=== PATIENT | female | born 1955 | race Caucasian/White ===

== ENCOUNTER → 2023-06-14 13:19 | Outpatient (BNVA) | payer OTHER, SELFPAY | PROVIDERS: PCP Internal Medicine; Visit Provider Physician Assistant Surgical ==

== ENCOUNTER 2023-08-02 08:23 | Outpatient (AMB) | payer OTHER, SELFPAY ==
--- OUTSIDE RECORDS SUMMARY | 2023-08-02 08:31 | XMS_ITS | Continuity of Care Document ---
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 Role Phone Jose Martinez MD Primary Care Physician Encounter [facility] [place] Date(s): 12/22/21 - 12/29/21 [facility] [address] [place] [id number] Attending Physician: Tamera HICKEY, Deanna Robin Admitting Physician: Tamera HICKEY, Deanna Robin Referring Physician: Jose Martinez MD Allergies, Adverse Reactions, Alerts Substance Reaction Severity Status Nembutal Hyperventalating Active traZODone daytime gogginess Active Cordran Tape BLISTERS Active Chantix Active Immunizations Given and Recorded Vaccine Date Status Refusal Reason SARS-CoV-2 (COVID-19) mRNA-1273 vaccine 03/31/21 R ecorded SARS-CoV-2 (COVID-19) mRNA-1273 vaccine 06/26/20 R ecorded SARS-CoV-2 (COVID-19) mRNA-1273 vaccine 05/28/20 R ecorded influenza virus vaccine, inactivated 1 12/27/20 Gi lincoln influenza virus vaccine, inactivated 01/13/19 Give n influenza virus vaccine, inactivated 2 01/19/18 Gi lincoln influenza virus vaccine, inactivated 01/22/17 Give n influenza virus vaccine, inactivated 03/06/16 Give n influenza virus vaccine, inactivated 12/28/12 Give n influenza virus vaccine, inactivated 3 01/03/08 Gi lincoln influenza virus vaccine, inactivated 4 02/09/06 Gi lincoln Influenza Virus Vaccine (oldterm) 01/15/20 Recorde d tetanus/diphtheria/pertussis, acel(Tdap) 10/20/19 Given FluLaval (oldterm) 5 12/18/12 Given Pneumococcal Poly (PPV23) (oldterm) 06/02/11 Given Tet/Diphth/Acel, Pertussis (oldterm) 6 02/25/09 Gi lincoln influ virus vac, H1N1, inactive(oldterm) 7 01/21/09 Given 1Result Comment: [facility]:[id number] 2Result Comment: [01/19/2018] [id number] 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 5Admin Note: [facility] 6Admin Note: Boost[employer]/Rixensart,[place] 7Admin Note: Novaritis Medications Albuterol (Eqv-ProAir HFA) 2 puffs, Inhalation, Every 6 hours, 0 Refills, Maintenance, 10/13/21 13:54:00 EDT, Partial fill upon patient request if the prescription is for a schedule II opioid drug. Start Date: 10/13/21 Status: Ordered ARIPiprazole 5 mg oral tablet 1, tablet, By Mouth, Daily, for 90 days, TO BE COMBINED WITH THE CITALOPRAM THERAPY, # 90 tablet, Refills 3, Tot. Refills 3, Physician Stop 08/01/22 9:00:00 EDT, 08/06/21 9:00:00 EDT, Route to Pharmacy Electronically, [facility]/pharmacy #[id number], 157.48, cm, 0... Start Date: 08/06/21 Stop Date: 08/01/22 Status: Ordered aspirin 81 mg oral delayed release tablet 81 mg, By Mouth, Daily, # 30 tablet, Refills 11, Tot. Refills 11, Maintenance, 06/12/21 9:27:00 EDT, Route to Pharmacy Electronically, [facility], Partial fill upon patient request if the prescription is for a schedule II opioid drug., 1... Start Date: 06/12/21 Stop Date: 06/07/22 Status: Ordered Ativan 0.5 mg oral tablet 1 tablet = 0.5 mg, By Mouth, Daily at bedtime, PRN as needed for anxiety, # 30 tablet, 1 Refills, Maintenance, 11/25/21 15:15:00 EDT, Tablet, [facility]/pharmacy #[id number], Partial fill upon patient request if the prescription is for a schedule II opioid drug.,... 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, 07/15/21 13:42:00 EDT, Supply Start Date: 07/15/21 Status: Ordered Daily Erica oral tablet See Instructions, TAKE 1 TABLET BY MOUTH EVERY DAY, # 90 tablet, 1 Refills, [id number], 90, TAKE 1 TABLET BY MOUTH EVERY DAY, 157.48, cm, 08/12/21 10:44:00 EDT, Height, 111, kg, 06/10/21 15:06:00 EDT, Dry Weight Start Date: 10/31/21 Status: Ordered Dulera 100 mcg-5 mcg/inh inhalation aerosol 2 puffs, Inhalation, 2 times a day, # 1 each, 11 Refills, 06/02/21 14:01:00 EDT, [facility]/pharmacy #[id number], 2 puffs Inhalation 2 times a day, 160, cm, 06/02/21 13:26:00 EDT, Height, 103, kg, 04/10/20 11:20:00 EST, Dry Weight Start Date: 06/02/21 Status: Ordered Entresto 24 mg-26 mg oral tablet 1 tablet, By Mouth, 2 times a day, # 60 tablet, 11 Refills, [id number], 30, TAKE 1 TABLET BY MOUTH TWICE A DAY, 157.48, cm, 08/12/21 10:44:00 EDT, Height, 111, kg, 06/10/21 15:06:00 EDT, Dry Weight Start Date: 09/18/21 Status: Ordered ferrous sulfate 325 mg oral enteric coated tablet 1, tablet, By Mouth, 2 times a day, for 90 days, # 180 tablet, Refills 3, Tot. Refills 3, PhysicianStop 08/01/22 9:01:00 EDT, 08/06/21 9:01:00 EDT, Route to Pharmacy Electronically, [facility]/pharmacy #[id number], 157.48, cm, 08/05/21 14:31:00 EDT, Height, 111,... Start Date: 08/06/21 Stop Date: 08/01/22 Status: Ordered furosemide 20 mg oral tablet 1, tablet, By Mouth, Daily, # 30 tablet, Refills 1, Maintenance, 12/02/21 12:39:00 EDT, Route to Pharmacy Electronically, [id number], 157.48, cm, 11/04/21 11:33:00 EDT, Height, 111, kg, 06/10/2214:06:00 EDT, Dry Weight Start Date: 12/02/21 Status: Ordered Lipitor 80 mg oral tablet 1 tablet = 80 mg, By Mouth, Daily at bedtime, # 30 tablet, 11 Refills, Maintenance, 06/12/21 9:27:00 EDT, Tablet, [facility], Partial fill upon patient request if the prescription is for a schedule II opioid drug., 157.48, cm, 06/10/21 1... Start Date: 06/12/21 Status: Ordered metoprolol 100 mg oral tablet, extended release 100 mg, 1, tablet, By Mouth, Daily, # 90 tablet, Refills 3, Tot. Refills 3, Maintenance, 09/11/21 12:08:00 EDT, Route to Pharmacy Electronically, [facility]/pharmacy #[id number], 157.48, cm, 08/12/21 10:44:00 EDT, Height, 111, kg, 06/10/21 15:06:00 EDT, Dry Weight Start Date: 09/11/21 Stop Date: 09/06/22 Status: Ordered morphine 15 mg/8 to 12 hr oral tablet, extended release 1 tablet = 15 mg, By Mouth, Every 8 hours, PRN Pain , Moderate, On substance agreement evaluated every 3 to 6 months, # 84 tablet, 0 Refills, Maintenance, 08/19/21 14:03:00 EDT, [facility]/pharmacy #[id number], parital fill upon patient request, 157.48, cm, 07/21... Start Date: 08/19/21 Stop Date: 09/16/21 Status: Ordered morphine 15 mg/8 to 12 hr oral tablet, extended release 1 tablet = 15 mg, By Mouth, Every 8 hours, PRN Pain , Moderate, On substance agreement evaluated every 3 to 6 months, # 84 tablet, 0 Refills, Maintenance, 11/25/21 15:15:00 EDT, [facility]/pharmacy #[id number], parital fill upon patient request, 157.48, cm, 10/20... Start Date: 11/25/21 Stop Date: 12/23/21 Status: Ordered morphine 15 mg/8 to 12 hr oral tablet, extended release 1 tablet = 15 mg, By Mouth, Every 12 hours, PRN Pain , Moderate, 0 Refills, Maintenance, 06/12/21 9:22:00 EDT, ER Tablet, Partial fill upon patient request if the prescription is for a schedule II opioid drug. Start Date: 06/12/21 Status: Ordered rOPINIRole 0.25 mg oral tablet See Instructions, TAJE 1 TABLET BY MOUTH AT BEDTIME FOR 1 WEEK THEN INCRAESE TO 2 AT NIGHT FOR 1 WEEK THEN 3 EVERY NIG, # 90 tablet, 1 Refills, Maintenance, 11/25/21 12:04:00 EDT, [facility]ORE 08325, 157.48, cm, 11/04/21 11:33:00 EDT, Height, 111, kg, 03... Start Date: 11/25/21 Status: Ordered warfarin 5 mg oral tablet 0.5 tablet = 2.5 mg, By Mouth, Daily, Goal INR 2-3 Please follow up with your coumadin clinic, # [id number], 0 Refills, Maintenance, 06/12/21 9:27:00 EDT, Tablet, [facility], Partial fill upon patient request if the prescription is for a... Start Date: 06/12/21 Status: Ordered Problem List Condition Confirmation Course Effective Dates Status H ealth Status Informant Asthma Confirmed Active Atrial fibrillation Confirmed Active Back pain 1 Confirmed Active Major depression, chronic Confirmed Active CHF (congestive heart failure) ([id number]% on echo 2019) Confirmed Active Continuous opioid dependence Confirmed Active Coronary artery disease Confirmed Active Opiate analgesic contract exists Confirmed Active Generalized anxiety disorder Confirmed Active Hip pain 2 Confirmed Active Hip replacement 3 Confirmed Active Hyperlipidemia Confirmed Active Hypertension Confirmed Active Patient has healthcare proxy - 10/02/11 Confirmed Active OA - Osteoarthritis 4 Confirmed 03/29/08 Active Obesity (BMI 30-39.9) Confirmed Active PRINCESS - Obstructive sleep apnea Confirmed 01/21/09 Active Severe obesity Confirmed Active Tobacco dependence Confirmed Active 1lumbar disc disease MRI 2005 2Right 3Right 11/2008 4advanced right hip OA Social History Social History Type Response Smoking Status 5-9 cigarettes (betw een 1/4 to 1/2 pack)/day in last 30 days; Other: Started at 23 years old; entered on: 01/18/20 Sex Patient Care team information Personnel Name: Jose Martinez MD Address: Address: [address] [place], [place] [address]
--- OUTSIDE RECORDS SUMMARY | 2023-08-02 08:31 | XMS_ITS | Continuity of Care Document ---
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 Role Phone Jose Martinez MD Primary Care Physician Encounter [facility] Date(s): 05/07/20 - 06/06/20 [facility] [address] [place] [address]- Allergies, Adverse Reactions, Alerts Substance Reaction Severity Status Nembutal Hyperventalating Active Cordran Tape BLISTERS Active Chantix Active traZODone daytime gogginess Active Immunizations Given and Recorded Vaccine Date Status Refusal Reason Influenza Virus Vaccine (oldterm) 01/15/20 Recorde d tetanus/diphtheria/pertussis, acel(Tdap) 10/20/19 Given influenza virus vaccine, inactivated 01/13/19 Give n influenza virus vaccine, inactivated 1 01/19/18 Gi lincoln influenza virus vaccine, inactivated 01/22/17 Give n influenza virus vaccine, inactivated 03/06/16 Give n influenza virus vaccine, inactivated 12/28/12 Give n influenza virus vaccine, inactivated 2 01/03/08 Gi lincoln influenza virus vaccine, inactivated 3 02/09/06 Gi lincoln FluLaval (oldterm) 4 03/08/12 Given Pneumococcal Poly (PPV23) (oldterm) 06/02/11 Given Tet/Diphth/Acel, Pertussis (oldterm) 5 02/25/09 Gi lincoln influ virus vac, H1N1, inactive(oldterm) 6 01/21/09 Given 1Result Comment: [01/19/2018] [id number] 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 4Admin Note: [employer] 5Admin Note: Boost[employer]/Rixensart,[place] 6Admin Note: Novaritis Medications Abilify 5 mg oral tablet 5 mg, 1, tablet, By Mouth, Daily, to be combined with the citalopram therapy, # 30 tablet, Refills 11, Tot. Refills 11, Maintenance, 07/31/19 14:19:00 EDT, [id number], cm, 07/31/19 13:53:00 EDT, Height, 1... Start Date: 07/31/19 Status: Ordered Ativan 0.5 mg oral tablet 1 tablet = 0.5 mg, By Mouth, 3 times a day, PRN anxiety, # 90 tablet, 2 Refills, Maintenance, 05/20/20 14:21:00 EST, [facility] 162.[facility], cm, 05/15/20 10:27:00 EST, Height, 103, kg, 04/10/20 11:20:00 EST, Dry Weight Start Date: 05/20/20 Status: Ordered atorvastatin 40 mg oral tablet 1 tablet = 40 mg, By Mouth, Daily, # 90 tablet, 1 Refills, Maintenance, 11/16/19 10:37:00 EDT, [facility], cm, 10/23/19 15:34:00 EDT, Height, Dry Weight Start Date: 11/16/19 Status: Ordered citalopram 40 mg oral tablet 1 tablet, By Mouth, Daily, # 90 tablet, 1 Refills, Maintenance, 04/04/20 11:03:00 EST, [facility], cm, 04/03/20 11:38:00 EST, Height, 108, kg, 04/03/20 11:10:00 EST, Dry Weight Start Date: 04/04/20 Status: Ordered CPAP Machine See Instructions, # 1 each, Maintenance, auto-CPAP10 to 16 cm of H2O with a heated humidifier. dx PRINCESS, 10/17/18 11:44:03 EDT, Compound Start Date: 10/17/18 Status: Ordered CPAP Equipment See Instructions, # 1 each, Refills 11, Tot. Refills 11, Maintenance, Cpap supplies- mask, tubing, filters, headgear, water chamber dx PRINCESS, 10/17/18 11:44:10 EDT, Compound Start Date: 10/17/18 Status: Ordered Dilaudid 2 mg oral tablet 1 tablet = 2 mg, By Mouth, Daily, PRN Pain , Mild, On substance agreement evaluated every 3 to 6 months, # 28 tablet, 0 Refills, Maintenance, 04/30/20 17:05:00 EST, Tablet, [facility]/pharmacy #[id number], parital fill upon patient request, 162.5, cm, 04/10/20 1... Start Date: 04/30/20 Status: Ordered Dulera 100 mcg-5 mcg/inh inhalation aerosol 2 puffs, Inhalation, 2 times a day, # 1 each, 11 Refills, Maintenance, 07/31/19 14:15:00 EDT, Aerosol, [facility]/pharmacy #2339, 2 puffs Inhalation 2 times a day, 157, cm, 07/31/19 13:53:00 EDT, Height, 104, kg, 08/03/17 12:54:00 EDT, Dry Weight Start Date: 07/31/19 Status: Ordered ferrous sulfate 325 mg oral enteric coated tablet 325 mg, By Mouth, 2 times a day, # 60 tablet, Refills 5, Tot. Refills 5, Maintenance, 04/17/20 10:12:00 EST, Route to Pharmacy Electronically, [facility]/pharmacy #2339, 162.5, cm, 04/10/20 11:20:00 EST, Height, 103, kg, 04/10/20 11:20:00 EST, Dry Weight Start Date: 04/17/20 Status: Ordered Lasix 40 mg oral tablet 40 mg, 1, tablet, By Mouth, Daily, # 30 tablet, Refills 5, Tot. Refills 5, Maintenance, 03/11/20 13:11:00 EST, Route to Pharmacy Electronically, [facility]/pharmacy #2339, 160, cm, 02/28/20 10:28:00 EST, Height, 104, kg, 01/19/20 3:57:00 EDT, Dry Weight Start Date: 03/11/20 Status: Ordered lisinopril 10 mg oral tablet 10 mg, 1, tablet, By Mouth, Daily, # 90 tablet, Refills 1, Tot. Refills 1, Maintenance, 05/20/20 8:39:00 EST, Route to Pharmacy Electronically, [facility]/pharmacy #2339, 162.5, cm, 05/15/20 10:27:00 EST, Height, 103, kg, 04/10/20 11:20:00 EST, Dry Weight Start Date: 05/20/20 Stop Date: 11/16/20 Status: Ordered morphine 15 mg/8 to 12 hr oral tablet, extended release 1 tablet = 15 mg, By Mouth, Every 8 hours, PRN Pain , Moderate, On substance agreement evaluated every 3 to 6 months, # 90 tablet, 0 Refills, Maintenance, 04/30/20 17:05:00 EST, [facility]/pharmacy #[id number], parital fill upon patient request, 162.5, cm, 04/10... Start Date: 04/30/20 Stop Date: 05/30/20 Status: Ordered morphine 30 mg/8 to 12 hr oral tablet, extended release 1 tablet = 30 mg, By Mouth, 3 times a day, OPIATE AGREEMENT evaluated every 3 to 6 months, # 84 tablet, 0 Refills, Maintenance, 04/30/20 17:05:00 EST, [facility]/pharmacy #2339, may fill for less, 162.5, cm, 04/10/20 11:20:00 EST, Height, 103, kg, 04/10/20... Start Date: 04/30/20 Stop Date: 05/28/20 Status: Ordered Multivitamin Daily, 0 Refills, Maintenance, 05/25/16 13:36:30 Start Date: 05/25/16 Status: Ordered Nicoderm C-Q 21 mg/24 hr transdermal film, extended release 1 patch, Topically, Daily, # 30 patch, 3 Refills, Maintenance, 08/25/19 16:23:00 EDT, Patch, [facility]/pharmacy #2339, 157, cm, 08/25/19 15:55:00 EDT, Height Start Date: 08/25/19 Status: Ordered [facility] use with inhaler [facility] use with inhaler, See Instructions, # 1 each, Refills 0, Tot. Refills 0, Maintenance, DX: Asthma, 09/09/18 16:10:45 EDT, Compound Start Date: 09/09/18 Status: Ordered spacer for use with MDI spacer for use with MDI, See Instructions, # 1 each, Refills 0, Tot. Refills 0, Maintenance, use with ProAir prn; dx bronchospasm, 08/25/19 16:12:00 EDT, Supply, 157, cm, 08/25/19 15:55:00 EDT, Height Start Date: 08/25/19 Status: Ordered Toprol XL 25 mg oral tablet, extended release 25 mg, 1, tablet, By Mouth, Daily, # 30 tablet, Refills 5, Tot. Refills 5, Maintenance, 01/22/20 9:08:00 EST, Route to Pharmacy Electronically, [facility]/pharmacy #2339, 160, cm, 01/22/20 7:53:00 EST, Height, 104, kg, 01/19/20 3:57:00 EDT, Dry Weight Start Date: 01/22/20 Stop Date: 07/20/20 Status: Ordered Ventolin HFA 108 mcg/inh inhalation aerosol with adapter 2 puffs, Inhalation, 4 times a day, PRN for wheezing, # 8 Gm, 5 Refills, Maintenance, 12/20/19 11:27:00 EDT, Aerosol, [facility]/pharmacy #2339, 156.6, cm, 10/23/19 15:34:00 EDT, Height Start Date: 12/20/19 Status: Ordered warfarin 5 mg oral tablet 0.5 tablet = 2.5 mg, By Mouth, Daily at bedtime, 5mg tablet on Fridays, # 30 tablet, 5 Refills, Maintenance, 02/26/20 12:12:00 EST, Tablet, [facility]/pharmacy #2339, 160, cm, 01/26/20 9:40:00 EST, Height, 104, kg, 01/19/20 3:57:00 EDT, Dry Weight Start Date: 02/26/20 Status: Ordered Problem List Condition Effective Dates Status Health Status Inform ant Asthma(Confirmed) Active Atrial fibrillation(Confirmed) Active Back pain(Confirmed) 1 Active Major depression, chronic(Confirmed) Active Continuous opioid dependence(Confirmed) Active Opiate analgesic contract exists(Confirmed) Active Hip pain(Confirmed) 2 Active Hip replacement(Confirmed) 3 Active Hypertension(Confirmed) Active Patient has healthcare proxy - 10/02/11(Confirmed) Active OA - Osteoarthritis(Confirmed) 4 03/29/08 Active Obesity (BMI 30-39.9)(Confirmed) Active PRINCESS - Obstructive sleep apnea(Confirmed) 01/21/09 Active 1lumbar disc disease MRI 2005 2Right 3Right 11/2008 4advanced right hip OA Social History Social History Type Response Smoking Status 5-9 cigarettes (betw een 1/4 to 1/2 pack)/day in last 30 days; Other: Started at 23 years old; entered on: 01/18/20 Sex
--- OUTSIDE RECORDS SUMMARY | 2023-08-02 08:31 | XMS_ITS | Continuity of Care Document ---
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 4Admin Note: [employer] 5Admin Note: Boost[employer]/Rixensart,[place] 6Admin Note: Novaritis Medications Abilify 5 mg oral tablet 5 mg, 1, tablet, By Mouth, Daily, to be combined with the citalopram therapy, # 30 tablet, Refills 11, Tot. Refills 11, Maintenance, 07/31/19 14:19:00 EDT, [id number], [facility], 07/31/19 13:53:00 EDT, Height, 1... Start Date: 07/31/19 Status: Ordered Ativan 0.5 mg oral tablet 1 tablet = 0.5 mg, By Mouth, 3 times a day, PRN anxiety, # 90 tablet, 2 Refills, Maintenance, 02/26/20 20:28:00 EST, [facility], cm, 01/26/20 9:40:00 EST, Height, 104, kg, 01/19/20 3:57:00 EDT, Dry Weight Start Date: 02/26/20 Status: Ordered atorvastatin 40 mg oral tablet 1 tablet = 40 mg, By Mouth, Daily, # 90 tablet, 1 Refills, Maintenance, 11/16/19 10:37:00 EDT, [facility], cm, 10/23/19 15:34:00 EDT, Height, Dry Weight Start Date: 11/16/19 Status: Ordered citalopram 40 mg oral tablet 1 tablet, By Mouth, Daily, # 90 tablet, 1 Refills, Maintenance, 10/03/19 13:25:00 EDT, [id number], 157, cm, 08/25/19 15:55:00 EDT, Height Start Date: 10/03/19 Status: Ordered CPAP Machine See Instructions, # [...] months, # 28 tablet, 0 Refills, Maintenance, 02/07/20 16:16:00 EST, Tablet, [facility]/pharmacy #2339, parital fill upon patient request, 160, cm, 01/26/20 9:4... Start Date: 02/07/20 Status: Ordered Dulera 100 mcg-5 mcg/inh inhalation aerosol 2 puffs, Inhalation, 2 times a day, # 1 each, 11 Refills, Maintenance, 07/31/19 14:15:00 EDT, Aerosol, [facility]/pharmacy #2339, 2 puffs Inhalation 2 times a day, 157, cm, 07/31/19 13:53:00 EDT, Height, 104, kg, 08/03/17 12:54:00 EDT, Dry Weight Start Date: 07/31/19 Status: Ordered ferrous sulfate 325 mg oral enteric coated tablet 325 mg, By Mouth, 2 times a day, # 60 tablet, Refills 1, Tot. Refills 1, Maintenance, 02/16/20 10:07:00 EST, Route to Pharmacy Electronically, [facility]/pharmacy #2339, 160, cm, 01/26/20 9:40:00 EST, Height, 104, kg, 01/19/20 3:57:00 EDT, Dry Weight Start Date: 02/16/20 Status: Ordered Lasix 40 mg oral tablet 40 mg, 1, tablet, By Mouth, Daily, # 30 tablet, Refills 0, Tot. Refills 0, Maintenance, 02/16/20 10:07:00 EST, Route to Pharmacy Electronically, [facility]/pharmacy #2339, 160, cm, 01/26/20 9:40:00 EST, Height, 104, kg, 01/19/20 3:57:00 EDT, Dry Weight Start Date: 02/16/20 Status: Ordered lisinopril 10 mg oral tablet 10 mg, 1, tablet, By Mouth, Daily, # 90 tablet, Refills 0, Tot. Refills 0, Maintenance, 02/26/20 14:41:00 EST, Route to Pharmacy Electronically, [facility]/pharmacy #2339, Partial fill upon patient request if the prescription is for a schedule II opioid drug... Start Date: 02/26/20 Status: Ordered morphine 15 mg/8 to 12 hr oral tablet, extended release 1 tablet = 15 mg, By Mouth, Every 8 hours, PRN Pain , Moderate, On substance agreement evaluated every 3 to 6 months, # 90 tablet, 0 Refills, Maintenance, 02/26/20 20:28:00 EST, [facility]/pharmacy #[id number], parital fill upon patient request, 160, cm, ... Start Date: 02/26/20 Stop Date: 03/27/20 Status: Ordered morphine 30 mg/8 to 12 hr oral tablet, extended release 1 tablet = 30 mg, By Mouth, 3 times a day, OPIATE AGREEMENT evaluated every 3 to 6 months, # 84 tablet, 0 Refills, Maintenance, 02/07/20 16:16:00 EST, [facility]/pharmacy #2339, may fill for less, 160, cm, 01/26/20 9:40:00 EST, Height, 104, kg, 01/19/20 3:5... Start Date: 02/07/20 Stop Date: 03/06/20 Status: Ordered Multivitamin Daily, 0 Refills, Maintenance, 05/25/16 13:36:30 Start Date: 05/25/16 Status: Ordered Nicoderm C-Q 21 mg/24 hr transdermal film, extended release 1 patch, Topically, Daily, # 30 patch, 3 Refills, Maintenance, 08/25/19 16:23:00 EDT, Patch, [facility]/pharmacy #2339, 157, cm, 08/25/19 15:55:00 EDT, Height Start Date: 08/25/19 Status: Ordered [facility] use with inhaler [facility] use with inhaler, See Instructions, # [...] 01/22/20 9:08:00 EST, Route to Pharmacy Electronically, [facility]/pharmacy #2339, 160, cm, 01/22/20 7:53:00 EST, Height, 104, kg, 01/19/20 3:57:00 EDT, Dry Weight Start Date: 01/22/20 Stop Date: 07/20/20 Status: Ordered Ventolin HFA 108 mcg/inh inhalation aerosol with adapter 2 puffs, Inhalation, 4 times a day, PRN for wheezing, # 8 Gm, 5 Refills, Maintenance, 12/20/19 11:27:00 EDT, Aerosol, [facility]/pharmacy #2339, 156.6, cm, 10/23/19 15:34:00 EDT, Height Start Date: 12/20/19 Status: Ordered warfarin 5 mg oral tablet 1 tablet = 5 mg, By Mouth, Daily, # 30 tablet, 5 Refills, Maintenance, 02/26/20 12:12:00 EST, Tablet, [facility]/pharmacy #2339, 160, cm, 01/26/20 9:40:00 EST, Height, [...]
--- OUTSIDE RECORDS SUMMARY | 2023-08-02 08:31 | XMS_ITS | Continuity of Care Document ---
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 Role Phone Jose Martinez MD Primary Care Physician [place] [facility] [place] 04/02/21 [facility] [address] [place] [id number] Attending Physician: Idris, Annetta Admitting Physician: AdmtrAnnetta Referring Physician: Admtr, Ar8 Allergies, Adverse Reactions, Alerts Substance Reaction Severity Status Nembutal Hyperventalating Active traZODone daytime gogginess Active Chantix Active Cordran Tape BLISTERS Active Immunizations Given and Recorded Vaccine Date [...] tetanus/diphtheria/pertussis, acel(Tdap) 10/20/19 Given FluLaval (oldterm) 5 03/08/12 Given Pneumococcal Poly (PPV23) (oldterm) 06/02/11 Given Tet/Diphth/Acel, Pertussis (oldterm) 6 02/25/09 Gi [place] influ virus vac, H1N1, inactive(oldterm) 7 01/21/09 Given 1Result Comment: [facility]:[id number] 2Result Comment: [01/19/2018] [id number] 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 5Admin Note: [facility] 6Admin Note: [employer],[place] 7Admin Note: Novaritis Medications ARIPiprazole 5 mg oral tablet 1, tablet, By Mouth, Daily, TO BE COMBINED WITH THE CITALOPRAM THERAPY, # 90 tablet, Refills 1, Route to Pharmacy Electronically, [facility] STORE 112[facility], 162.5, cm, 12/27/20 14:39:00 EDT, Height, 103, kg, 04/10/20 11:20:00 EST, Dry Weight Start Date: 01/16/21 Status: Ordered Ativan 0.5 mg oral tablet 1 tablet = 0.5 mg, By Mouth, 3 times a day, PRN anxiety, # 90 tablet, 2 Refills, Maintenance, 02/24/21 14:29:00 EST, Tablet, [facility]/pharmacy #[id number], 162.5, cm, 01/29/21 12:38:00 EST, Height, 103, kg, 04/10/20 11:20:00 EST, Dry Weight Start Date: 02/24/21 Status: Ordered atorvastatin 40 mg oral tablet 1 tablet = 40 mg, By Mouth, Daily, # 90 tablet, 1 Refills, Maintenance, 11/16/19 10:37:00 EDT, Tablet, [facility]/pharmacy #[id number], 156.6, cm, 10/23/19 15:34:00 EDT, Height, Dry Weight Start Date: 11/16/19 Status: Ordered citalopram 40 mg oral tablet 1 tablet, By Mouth, Daily, # 90 tablet, 1 Refills, Maintenance, 10/28/20 14:21:00 EDT, [facility]/pharmacy#2339, 162.5, cm, 05/15/20 10:27:00 EST, Height, 103, kg, 04/10/20 11:20:00 EST, Dry Weight Start Date: 10/28/20 Status: Ordered CPAP Machine See Instructions, # [...] months, # 28 tablet, 0 Refills, Maintenance, 04/02/21 12:29:00 EST, Tablet, [facility]/pharmacy #[id number], parital fill upon patient request, 162.5, cm, 01/29/21 1... Start Date: 04/02/21 Status: Ordered Dulera 100 mcg-5 mcg/inh inhalation aerosol 2 puffs, Inhalation, 2 times a day, # 13 Unknown, 11 Refills, Maintenance, 07/22/20 7:52:00 EDT, [id number], 30, INHALE 2 PUFFS TWICE A DAY, 162.5, cm, 05/15/20 10:27:00 EST, Height, 103, kg, 04/10/20 11:20:00 EST, Dry Weight Start Date: 07/22/20 Status: Ordered ferrous sulfate 325 mg oral enteric coated tablet 1, tablet, By Mouth, 2 times a day, # 180 tablet, Refills 1, Tot. Refills 0, Maintenance, 10/17/20 7:27:00 EDT, Route to Pharmacy Electronically, [facility] 92018, 162.5, cm, 05/15/20 10:27:00 EST, Height, 103, kg, 04/10/20 11:20:00 EST, Dry Weight Start Date: 10/17/20 Status: Ordered lisinopril 10 mg oral tablet 1, tablet, By Mouth, Daily, # 90 tablet, Refills 3, Route to Pharmacy Electronically, [facility] 56[facility], 162.5, cm, 05/15/20 10:27:00 EST, Height, 103, kg, 04/10/20 11:20:00 EST, Dry Weight Start Date: 11/13/20 Status: Ordered Metoprolol Succinate ER 25 mg oral tablet, extended release 1 tablet, By Mouth, Daily, # 90 tablet, 1 Refills, Maintenance, 04/02/21 9:43:00 EST, [facility]/pharmacy #[id number], 162.5, cm, 01/29/21 12:38:00 EST, Height, 103, kg, 04/10/20 11:20:00 EST, Dry Weight Start Date: 04/02/21 Status: Ordered morphine 15 mg/8 to 12 hr oral tablet, extended release 1 tablet = 15 mg, By Mouth, Every 8 hours, PRN Pain , Moderate, On substance agreement evaluated every 3 to 6 months, # 90 tablet, 0 Refills, Maintenance, 04/02/21 12:29:00 EST, [facility]/pharmacy #[id number], parital fill upon patient request, 162.5, cm, 01/29... Start Date: 04/02/21 Stop Date: 05/02/21 Status: Ordered morphine 30 mg/8 to 12 hr oral tablet, extended release 1 tablet = 30 mg, By Mouth, 3 times a day, OPIATE AGREEMENT evaluated every 3 to 6 months, # 84 tablet, 0 Refills, Maintenance, 04/02/21 12:29:00 EST, [facility]/pharmacy #[id number], may fill for less, 162.5, cm, 01/29/21 12:38:00 EST, Height, 103, kg, 04/10/20... Start Date: 04/02/21 Stop Date: 04/30/21 Status: Ordered Multivitamin Daily, 0 Refills, Maintenance, 05/25/16 13:36:30 Start Date: 05/25/16 Status: Ordered Nicoderm C-Q 21 mg/24 hr transdermal film, extended release 1 patch, Topically, Daily, # 30 patch, 3 Refills, Maintenance, 08/25/19 16:23:00 EDT, Patch, [facility]/pharmacy #[id number], 157, cm, 08/25/19 15:55:00 EDT, Height Start Date: 08/25/19 Status: Ordered [facility] use with inhaler [facility] use with inhaler, See Instructions, # 1 [...] EDT, Height Start Date: 08/25/19 Status: Ordered torsemide 5 mg oral tablet 2 tablet = 10 mg, By Mouth, Daily, # 90 tablet, 1 Refills, Maintenance, 04/02/21 21:23:00 EST, [facility]/pharmacy #2339, 162.5, cm, 01/29/21 12:38:00 EST, Height, 103, kg, 04/10/20 11:20:00 EST, Dry Weight Start Date: 04/02/21 Status: Ordered Ventolin HFA 108 mcg/inh inhalation aerosol with adapter 2 puffs, Inhalation, 4 times a day, PRN NEEDED FOR WHEEZING, # 3 each, 1 Refills, Maintenance, 12/02/20 8:23:00 EDT, [facility]/pharmacy #[id number], 162.5, cm, 05/15/20 10:27:00 EST, Height, 103, kg, 04/10/2110:20:00 EST, Dry Weight Start Date: 12/02/20 Stop Date: 05/31/21 Status: Ordered warfarin 5 mg oral tablet 1 tablet, By Mouth, Daily, # 90 tablet, 1 Refills, [facility] STORE 91757, 162.5, cm, 01/29/21 12:38:00 EST, Height, 103, kg, 04/10/20 11:20:00 EST, Dry Weight Start Date: 03/03/21 Status: Ordered Problem List Condition Effective Dates Status Health Status Inform ant Asthma(Confirmed) Active Atrial fibrillation(Confirmed) Active Back pain(Confirmed) 1 Active Major depression, chronic(Confirmed) Active CHF (congestive heart failur e) ([id number]% on echo 2019)(Confirmed) Active Continuous opioid dependence(Confirmed) Active Opiate analgesic contract exists(Confirmed) Active Hip pain(Confirmed) 2 Active Hip replacement(Confirmed) 3 Active Hypertension(Confirmed) Active Patient has healthcare proxy - 10/02/11(Confirmed) Active OA - Osteoarthritis(Confirmed) 4 03/29/08 Active Obesity (BMI 30-39.9)(Confirmed) Active PRINCESS - Obstructive sleep apnea(Confirmed) 01/21/09 Active Severe obesity(Confirmed) Active 1lumbar disc disease MRI 2005 2Right 3Right 11/2008 4advanced right hip OA Social History Social History Type Response Smoking Status 5-9 cigarettes (betw een 1/4 to 1/2 pack)/day in last 30 days; Other: Started at 23 years old; entered on: 01/18/20 Sex
--- OUTSIDE RECORDS SUMMARY | 2023-08-02 08:31 | XMS_ITS | Continuity of Care Document ---
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 4Admin Note: [employer] 5Admin Note: [employer],[place] 6Admin Note: Novaritis Medications Abilify 5 mg oral tablet 5 mg, 1, tablet, By Mouth, Daily, to be combined with the citalopram therapy, # 90 tablet, Refills 0, Tot. Refills 0, Maintenance, 07/20/20 19:50:00 EDT, [id number] 162.5, cm, 05/15/20 10:27:00 EST, Height, 1... Start Date: 07/20/20 Status: Ordered Ativan 0.5 mg oral tablet 1 tablet = 0.5 mg, By Mouth, 3 times a day, PRN anxiety, # 90 tablet, 2 Refills, Maintenance, 10/14/20 13:39:00 EDT, Tablet[facility] 162.5, cm, 05/15/20 10:27:00 EST, Height, 103, kg, 04/10/20 11:20:00 EST, Dry Weight Start Date: 10/14/20 Status: Ordered atorvastatin 40 mg oral tablet 1 tablet = 40 mg, By Mouth, Daily, # 90 tablet, 1 Refills, Maintenance, 11/16/19 10:37:00 EDT, Tablet, [facility]/pharmacy #2339, 156.6, cm, 10/23/19 15:34:00 EDT, Height, Dry Weight Start Date: 11/16/19 Status: Ordered citalopram 40 mg oral tablet 1 tablet, By Mouth, Daily, # 90 tablet, 1 Refills, Maintenance, 10/28/20 14:21:00 EDT, [facility] 162.5, cm, 05/15/20 10:27:00 EST, Height, 103, [...] months, # 28 tablet, 0 Refills, Maintenance, 10/29/20 12:51:00 EDT, Tablet, [facility]/pharmacy #[id number], parital fill upon patient request, 162.5, cm, 05/15/20 1... Start Date: 10/29/20 Status: Ordered Dulera 100 mcg-5 mcg/inh inhalation aerosol 2 puffs, Inhalation, 2 times a day, # 13 Unknown, 11 Refills, Maintenance, 07/22/20 7:52:00 EDT, [facility] ST[facility] 97[facility], 30, INHALE 2 PUFFS TWICE A DAY, 162.5, cm, 05/15/20 10:27:00 EST, Height, 103, kg, 04/10/20 11:20:00 EST, Dry Weight Start Date: 07/22/20 Status: Ordered ferrous sulfate 325 mg oral enteric coated tablet 1, tablet, By Mouth, 2 times a day, # 180 tablet, Refills 1, Tot. Refills 0, Maintenance, 10/17/20 7:27:00 EDT, Route to Pharmacy Electronically, [facility] 15475, 162.5, cm, 05/15/20 10:27:00 EST, Height, 103, kg, 04/10/20 11:20:00 EST, Dry Weight Start Date: 10/17/20 Status: Ordered furosemide 40 mg oral tablet 1, tablet, By Mouth, Daily, # 90 tablet, Refills 1, Tot. Refills 0, Maintenance, 09/09/20 14:39:00 EDT, Route to Pharmacy Electronically, [facility] 37915, 162.5, cm, 05/15/20 10:27:00 EST, Height, 103, kg, 04/10/20 11:20:00 EST, Dry Weight Start Date: 09/09/20 Status: Ordered lisinopril 10 mg oral tablet 1, tablet, By Mouth, Daily, # 90 tablet, Refills 3, Route to Pharmacy Electronically, [facility] 21848, 162.5, cm, 05/15/20 10:27:00 EST, Height, 103, kg, 04/10/20 11:20:00 EST, Dry Weight Start Date: 11/13/20 Status: Ordered Metoprolol Succinate ER 25 mg oral tablet, extended release 1 tablet, By Mouth, Daily, # 90 tablet, 1 Refills, Maintenance, 07/22/20 7:32:00 EDT, [facility] STORE 29527, 162.5, cm, 05/15/20 10:27:00 EST, Height, 103, kg, 04/10/20 11:20:00 EST, Dry Weight Start Date: 07/22/20 Status: Ordered morphine 15 mg/8 to 12 hr oral tablet, extended release 1 tablet = 15 mg, By Mouth, Every 8 hours, PRN Pain , Moderate, On substance agreement evaluated every 3 to 6 months, # 90 tablet, 0 Refills, Maintenance, 10/29/20 12:51:00 EDT, [facility]/pharmacy #[id number], parital fill upon patient request, 162.5, cm, 05/15... Start Date: 10/29/20 Stop Date: 11/28/20 Status: Ordered morphine 30 mg/8 to 12 hr oral tablet, extended release 1 tablet = 30 mg, By Mouth, 3 times a day, OPIATE AGREEMENT evaluated every 3 to 6 months, # 84 tablet, 0 Refills, Maintenance, 10/29/20 12:51:00 EDT, [facility]/pharmacy #2339, may fill for less, 162.5, cm, 05/15/20 10:27:00 EST, Height, 103, kg, 04/10/20... Start Date: 10/29/20 Stop Date: 11/26/20 Status: Ordered Multivitamin Daily, 0 Refills, Maintenance, 05/25/16 13:36:30 Start Date: 05/25/16 Status: Ordered Nicoderm C-Q 21 mg/24 hr transdermal film, extended release 1 patch, Topically, Daily, # 30 patch, 3 Refills, Maintenance, 08/25/19 16:23:00 EDT, Patch, [facility]/pharmacy #2339, 157, cm, 08/25/19 15:55:00 EDT, Height Start Date: 08/25/19 Status: Ordered [facility] use with inhaler [facility] use with inhaler, See Instructions, # [...] Status: Ordered torsemide 5 mg oral tablet 1 tablet, By Mouth, Daily, # 90 tablet, 3 Refills, Maintenance, 10/17/20 12:35:00 EDT, [facility] ST[facility] 27[facility], 162.5, cm, 05/15/20 10:27:00 EST, Height, 103, kg, 04/10/20 11:20:00 EST, Dry Weight Start Date: 10/17/20 Status: Ordered Ventolin HFA 108 mcg/inh inhalation [...] Daily, # 90 tablet, 1 Refills, Maintenance, 09/02/20 8:48:00 EDT, [facility] ST[facility] 60437, 162.5, cm, 05/15/20 10:27:00 EST, Height, 103, kg, 04/10/20 11:20:00 EST, Dry Weight Start Date: 09/02/20 Status: Ordered Problem List Condition Effective Dates Status Health Status Inform ant Asthma(Confirmed) Active Atrial fibrillation(Confirmed) Active Back pain(Confirmed) 1 Active Major depression, chronic(Confirmed) Active Continuous opioid dependence(Confirmed) Active Opiate analgesic contract exists(Confirmed) Active Hip pain(Confirmed) 2 Active Hip replacement(Confirmed) 3 Active Hypertension(Confirmed) Active Patient has healthcare proxy - 10/02/11(Confirmed) Active OA - Osteoarthritis(Confirmed) 4 1/8/09 Active Obesity (BMI 30-39.9)(Confirmed) Active PRINCESS - Obstructive sleep apnea(Confirmed) 01/21/09 Active 1lumbar disc disease MRI 2005 2Right 3Right 11/2008 4advanced right hip OA Social History Social History Type Response Smoking Status 5-9 cigarettes (betw een 1/4 to 1/2 pack)/day in last 30 days; Other: Started at 23 years old; entered on: 01/18/20 Sex
--- OUTSIDE RECORDS SUMMARY | 2023-08-02 08:31 | XMS_ITS | Continuity of Care Document ---
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 5Admin Note: [facility] [employer] [facility] 6Admin Note: [employer],[place] 7Admin Note: Novaritis Medications ARIPiprazole 5 mg oral tablet 1, tablet, By Mouth, Daily, TO BE COMBINED WITH THE CITALOPRAM THERAPY, # 90 tablet, Refills 0, Route to Pharmacy Electronically, [facility] 10433, 160, cm, 06/02/21 13:26:00 EDT, Height, 103, kg, 04/10/20 11:20:00 EST, Dry Weight Start Date: 06/03/21 Status: Ordered aspirin 81 mg oral delayed release tablet 81 mg, By Mouth, Daily, # 30 tablet, Refills 11, Tot. Refills 11, Maintenance, 06/12/21 9:27:00 EDT, Route to Pharmacy Electronically, [facility], Partial fill upon patient request if the prescription is for a schedule II opioid drug., 1... Start Date: 06/12/21 Stop Date: 06/07/22 Status: Ordered Ativan 0.5 mg oral tablet 1 tablet = 0.5 mg, By Mouth, Daily at bedtime, PRN as needed for anxiety, # 30 tablet, 0 Refills, Maintenance, 06/12/21 9:23:00 EDT, Tablet, Partial fill upon patient request if the prescription is for a schedule II opioid drug., 157.48, cm, 06/10/21... Start Date: 06/12/21 Status: Ordered citalopram 40 mg oral tablet 1 tablet, By Mouth, Daily, # 90 tablet, 1 Refills, [facility] 81037, 162.5, cm, 01/29/21 12:38:00 EST, Height, 103, kg, 04/10/20 11:20:00 EST, Dry Weight Start Date: 04/07/21 Status: Ordered Dulera 100 mcg-5 mcg/inh inhalation aerosol 2 puffs, Inhalation, 2 times a day, # 1 each, 11 Refills, 06/02/21 14:01:00 EDT, [facility]/pharmacy #2339, 2 puffs Inhalation 2 times a day, 160, cm, 06/02/21 13:26:00 EDT, Height, 103, kg, 04/10/20 11:20:00 EST, Dry Weight Start Date: 06/02/21 Status: Ordered ferrous sulfate 325 mg oral enteric coated tablet 1, tablet, By Mouth, 2 times a day, # 180 tablet, Refills 1, Route to Pharmacy Electronically, [facility] STORE 45868, 162.5, cm, 01/29/21 12:38:00 EST, Height, 103, kg, 04/10/20 11:20:00 EST, Dry Weight Start Date: 04/07/21 Status: Ordered Lasix 20 mg oral tablet 20 mg, 1, tablet, By Mouth, Daily, PRN, -If your weight goes up 2 pounds in one day or 5 pounds in one week -If you have shortness of breath, especially on laying flat Please take a dose of lasix that day and call your recreation facilities supervisor's office for a... Start Date: 06/12/21 Status: Ordered Lipitor 80 mg oral tablet 1 tablet = 80 mg, By Mouth, Daily at bedtime, # 30 tablet, 11 Refills, Maintenance, 06/12/21 9:27:00 EDT, Tablet, [facility], Partial fill upon patient request if the prescription is for a schedule II opioid drug., 157.48, cm, 06/10/21 1... Start Date: 06/12/21 Status: Ordered lisinopril 5 mg oral tablet 5 mg, 1, tablet, By Mouth, Daily, # 30 tablet, Refills 11, Tot. Refills 11, Maintenance, 07/03/21 14:52:00 EDT, [id number] Partial fill upon patient requestif the prescription is for a schedule II opioid kal... Start Date: 07/03/21 Status: Ordered Metoprolol Succinate ER 25 mg oral tablet, extended release 1 tablet, By Mouth, Daily, # 30 tablet, 1 Refills, Maintenance, 06/12/21 9:27:00 EDT, [facility], 157.48, cm, 06/10/21 17:04:00 EDT, Height, 111, kg, 06/10/21 15:06:00 EDT, Dry Weight Start Date: 06/12/21 Status: Ordered morphine 15 mg/8 to 12 hr oral tablet, extended release 1 tablet = 15 mg, By Mouth, Every 8 hours, PRN Pain , Moderate, On substance agreement evaluated every 3 to 6 months, # 84 tablet, 0 Refills, Maintenance, 06/25/21 16:52:00 EDT, [facility]/pharmacy #[id number], parital fill upon patient request, 157.48, cm, 2... Start Date: 06/25/21 Stop Date: 07/23/21 Status: Ordered morphine 15 mg/8 to 12 hr oral tablet, extended release 1 tablet = 15 mg, By Mouth, Every 12 hours, PRN Pain , Moderate, 0 Refills, Maintenance, 06/12/21 9:22:00 EDT, ER Tablet, Partial fill upon patient request if the prescription is for a schedule II opioid drug. Start Date: 06/12/21 Status: Ordered multivitamin Multiple Vitamins oral tablet 1 tablet, By Mouth, Daily, # 30 tablet, 5 Refills, Maintenance, 06/09/21 15:31:00 EDT, Tablet, [facility]/pharmacy #2339, Partial fill upon patient request if the prescription is for a schedule II opioid drug., 1 tablet By Mouth Daily, 160, cm, 06/02/21 13:2... Start Date: 06/09/21 Status: Ordered nicotine 14 mg/24 hr transdermal film, extended release 1 patch, Topically, Daily, # 30 patch, 0 Refills, Maintenance, 06/11/21 14:57:00 EDT, Patch, Partial fill upon patient request if the prescription is for a schedule II opioid drug. Start Date: 06/11/21 Status: Ordered warfarin 5 mg oral tablet 0.5 tablet = 2.5 mg, By Mouth, Daily, Goal INR 2-3 Please follow up with your coumadin clinic, # [id number], 0 Refills, Maintenance, 06/12/21 9:27:00 EDT, Tablet, [facility], Partial fill upon patient request if the prescription is for a... Start Date: 06/12/21 Status: Ordered Problem List Condition Effective Dates Status Health Status Inform ant Asthma(Confirmed) Active Atrial fibrillation(Confirmed) Active Back pain(Confirmed) 1 Active Major depression, chronic(Confirmed) Active CHF (congestive heart failur e) (UDBK98-85% on echo 2019)(Confirmed) Active Continuous opioid dependence(Confirmed) Active Coronary artery disease(Confirmed) Active Opiate analgesic contract exists(Confirmed) Active Generalized anxiety disorder(Confirmed) Active Hip pain(Confirmed) 2 Active Hip replacement(Confirmed) 3 Active Hyperlipidemia(Confirmed) Active Hypertension(Confirmed) Active Patient has healthcare proxy - 10/02/11(Confirmed) Active OA - Osteoarthritis(Confirmed) 4 03/29/08 Active Obesity (BMI 30-39.9)(Confirmed) Active PRINCESS - Obstructive sleep apnea(Confirmed) 01/21/09 Active Severe obesity(Confirmed) Active Tobacco dependence(Confirmed) Active 1lumbar disc disease MRI 2005 2Right 3Right 11/2008 4advanced right hip OA Social History Social History Type Response Smoking Status 5-9 cigarettes (betw een 1/4 to 1/2 pack)/day in last 30 days; Other: Started at 23 years old; entered on: 01/18/20 Sex
--- OUTSIDE RECORDS SUMMARY | 2023-08-02 08:31 | XMS_ITS | Continuity of Care Document ---
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 5Admin Note: [facility] 6Admin Note: [employer],[place] 7Admin Note: Novaritis Medications amLODIPine 10 mg oral tablet 1 tablet, By Mouth, Daily, # 90 tablet, 1 Refills, [id number], 157.48, cm, 08/12/21 10:44:00 EDT, Height, 111, kg, 06/10/21 15:06:00 EDT, Dry Weight Start Date: 10/03/21 Status: Ordered ARIPiprazole 5 mg oral tablet 1, tablet, By Mouth, Daily, for 90 days, TO BE COMBINED WITH THE CITALOPRAM THERAPY, # 90 tablet, Refills 3, Tot. Refills 3, Physician Stop 08/01/22 9:00:00 EDT, 08/06/21 9:00:00 EDT, Route to Pharmacy Electronically, [facility]/pharmacy #[id number], 157.48, cm, 0... Start Date: 08/06/21 Stop Date: 08/01/22 Status: Ordered aspirin 81 mg oral delayed release tablet 81 mg, By Mouth, Daily, # 30 tablet, Refills 11, Tot. Refills 11, Maintenance, 06/12/21 9:27:00 EDT, Route to Pharmacy Electronically, [facility], Partial fill upon patient request if the prescription is for a schedule II opioid drug., 1... Start Date: 06/12/21 Stop Date: 06/07/22 Status: Ordered Ativan 0.5 mg oral tablet 1 tablet = 0.5 mg, By Mouth, Daily at bedtime, PRN as needed for anxiety, # 30 tablet, 1 Refills, Maintenance, 08/06/21 9:02:00 EDT, Tablet, [facility]/pharmacy #[id number], Partial fill upon patient request if the prescription is for a schedule II opioid drug., 1... 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, 07/15/21 13:42:00 EDT, Supply Start Date: 07/15/21 Status: Ordered Dulera 100 mcg-5 mcg/inh inhalation aerosol 2 puffs, Inhalation, 2 times a day, # 1 each, 11 Refills, 06/02/21 14:01:00 EDT, [facility]/pharmacy #[id number], 2 puffs Inhalation 2 times a day, 160, cm, 06/02/21 13:26:00 EDT, Height, 103, kg, 04/10/20 11:20:00 EST, Dry Weight Start Date: 06/02/21 Status: Ordered Entresto 24 mg-26 mg oral tablet 1 tablet, By Mouth, 2 times a day, # 60 tablet, 11 Refills, [id number], 30, TAKE 1 TABLET BY MOUTH TWICE [...] 08/06/21 9:01:00 EDT, Route to Pharmacy Electronically, [facility]/pharmacy #[id number], 157.48, cm, 08/05/21 14:31:00 EDT, Height, 111,... Start Date: 08/06/21 Stop Date: 08/01/22 Status: Ordered Lasix 20 mg oral tablet 20 mg, 1, tablet, By Mouth, Daily, PRN, -If your weight goes up 2 pounds in one day or 5 pounds in one week -If you have shortness of breath, especially on laying flat Please take a dose of lasix that day and call your skid wrapper's office for a... Start Date: 06/12/21 Status: Ordered Lipitor 80 mg oral tablet 1 tablet = 80 mg, By Mouth, Daily at bedtime, # 30 tablet, 11 Refills, Maintenance, 06/12/21 9:27:00 EDT, Tablet, [facility], Partial fill upon patient request if the prescription is for a schedule II opioid drug., 157.48, cm, 06/10/21 1... Start Date: 06/12/21 Status: Ordered metoprolol 100 mg oral tablet, extended release 100 mg, 1, tablet, By Mouth, Daily, # 90 tablet, Refills 3, Tot. Refills 3, Maintenance, 09/11/21 12:08:00 EDT, Route to Pharmacy Electronically, [facility]/pharmacy #[id number], 157.48, cm, 08/12/21 10:44:00 EDT, Height, [...] tablet, 0 Refills, Maintenance, 08/19/21 14:03:00 EDT, [facility]/pharmacy #[id number], parital fill upon patient request, 157.48, cm, 2... Start Date: 08/19/21 Stop Date: 09/16/21 Status: [...] 5 Refills, Maintenance, 06/09/21 15:31:00 EDT, Tablet, [facility]/pharmacy #[id number], Partial fill upon patient request if the prescription is for a schedule II opioid drug., 1 tablet By Mouth Daily, 160, cm, 06/02/21 13:2... Start Date: 06/09/21 Status: Ordered rOPINIRole 0.25 mg oral tablet See Instructions, 1 tab PO qhs for 1 week then increase to 2 po qhs for one week and then to 3 po qhs, # 90 each, 1 Refills, Maintenance, 08/05/21 15:00:00 EDT, [facility]/pharmacy #[id number], Partial fill upon patient request if the prescription is for a schedul... Start Date: 08/05/21 Status: Ordered torsemide 5 mg oral tablet 2 tablet, By Mouth, Daily, # 180 tablet, 1 Refills, [facility], 157.48, cm, 08/12/21 10:44:00 EDT, Height, 111, kg, 06/10/21 15:06:00 EDT, Dry Weight Start Date: 09/19/21 Status: Ordered warfarin 5 mg oral tablet 0.5 tablet = 2.5 mg, By Mouth, Daily, Goal INR 2-3 Please follow up with your coumadin clinic, # [id number], 0 Refills, Maintenance, 06/12/21 9:27:00 EDT, Tablet, [facility], Partial fill upon patient request if the prescription is for a... Start Date: 06/12/21 Status: Ordered Problem List Condition Effective Dates Status Health Status Inform ant Asthma(Confirmed) Active Atrial fibrillation(Confirmed) Active Back pain(Confirmed) 1 Active Major depression, chronic(Confirmed) Active CHF (congestive heart failur e) ([id number]% on echo 2019)(Confirmed) Active Continuous opioid dependence(Confirmed) [...]
--- OUTSIDE RECORDS SUMMARY | 2023-08-02 08:31 | XMS_ITS | Continuity of Care Document ---
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 Refills 11, Maintenance, 07/31/19 14:19:00 EDT, [id number], 157, cm, 07/31/19 13:53:00 EDT, Height, 1... Start Date: 07/31/19 Status: Ordered Ativan 0.5 mg oral tablet 1 tablet = 0.5 mg, By Mouth, 3 times a day, PRN anxiety, # 90 tablet, 2 Refills, Maintenance, 02/26/20 20:28:00 EST, Tablet, [id number], 160, cm, 01/26/20 9:40:00 EST, Height, 104, kg, 01/19/20 3:57:00 EDT, Dry Weight Start Date: 02/26/20 Status: Ordered atorvastatin 40 mg oral tablet 1 tablet = 40 mg, By Mouth, Daily, # 90 tablet, 1 Refills, Maintenance, 11/16/19 10:37:00 EDT, Tablet, [facility], 156.6, cm, 10/23/19 15:34:00 EDT, Height, Dry Weight Start Date: 11/16/19 Status: Ordered citalopram 40 mg oral tablet 1 tablet, By Mouth, Daily, # 90 tablet, 1 Refills, Maintenance, 10/03/19 13:25:00 EDT, [id number], 157, cm, 08/25/19 15:55:00 EDT, Height Start [...] 0 Refills, Maintenance, 02/07/20 16:16:00 EST, Tablet, [facility]/pharmacy #[id number], parital fill upon patient request, 160, cm, 01/26/20 9:4... Start Date: 02/07/20 Status: Ordered Dulera 100 mcg-5 mcg/inh inhalation aerosol 2 puffs, Inhalation, 2 times a day, # 1 each, 11 Refills, Maintenance, 07/31/19 14:15:00 EDT, Aerosol, [facility]/pharmacy #2339, 2 puffs Inhalation 2 times a day, 157, cm, 07/31/19 13:53:00 EDT, Height, 104, kg, 08/03/17 12:54:00 EDT, Dry Weight Start Date: 07/31/19 Status: Ordered ferrous sulfate 325 mg oral enteric coated tablet 325 mg, By Mouth, 2 times a day, # 60 tablet, Refills 1, Tot. Refills 1, Maintenance, 03/14/20 13:59:00 EST, Route to Pharmacy Electronically, [facility]/pharmacy #[id number], 160, cm, 02/28/20 10:28:00 EST, Height, 104, kg, 01/19/20 3:57:00 EDT, Dry Weight Start Date: 03/14/20 Status: Ordered Lasix 40 mg oral tablet 40 mg, 1, tablet, By Mouth, Daily, # 30 tablet, Refills 5, Tot. Refills 5, Maintenance, 03/11/20 13:11:00 EST, Route to Pharmacy Electronically, [facility]/pharmacy #[id number], 160, cm, 02/28/20 10:28:00 EST, Height, 104, kg, 01/19/20 3:57:00 EDT, Dry Weight Start Date: 03/11/20 Status: Ordered lisinopril 10 mg oral tablet 10 mg, 1, tablet, By Mouth, Daily, # 90 tablet, Refills 0, Tot. Refills 0, Maintenance, 02/26/20 14:41:00 EST, Route to Pharmacy Electronically, [facility]/pharmacy #[id number], Partial fill upon patient request if the prescription is for a schedule II opioid drug... Start Date: 02/26/20 Status: Ordered morphine 15 mg/8 to 12 hr oral tablet, extended release 1 tablet = 15 mg, By Mouth, Every 8 hours, PRN Pain , Moderate, On substance agreement evaluated every 3 to 6 months, # 90 tablet, 0 Refills, Maintenance, 03/11/20 15:21:00 EST, [facility]/pharmacy #[id number], parital fill upon patient request, 160, cm, ... Start Date: 03/11/20 Stop Date: 04/10/20 Status: Ordered morphine 30 mg/8 to 12 hr oral tablet, extended release 1 tablet = 30 mg, By Mouth, 3 times a day, OPIATE AGREEMENT evaluated every 3 to 6 months, # 84 tablet, 0 Refills, Maintenance, 02/07/20 16:16:00 EST, [facility]/pharmacy #[id number], may fill for less, 160, cm, 01/26/20 9:40:00 EST, Height, 104, kg, 01/19/20 3:5... Start Date: 02/07/20 Stop Date: 03/06/20 Status: Ordered Multivitamin Daily, 0 Refills, Maintenance, 05/25/16 13:36:30 Start Date: 05/25/16 Status: Ordered Nicoderm C-Q 21 mg/24 hr transdermal film, extended release 1 patch, Topically, Daily, # 30 patch, 3 Refills, Maintenance, 08/25/19 16:23:00 EDT, Patch, [facility] #[id number], 157, cm, 08/25/19 15:55:00 EDT, Height Start Date: 08/25/19 Status: Ordered [facility] use with inhaler [facility] use with inhaler, See Instructions, # 1 [...] 01/22/20 9:08:00 EST, Route to Pharmacy Electronically, [facility]/pharmacy #[id number], 160, cm, 01/22/20 7:53:00 EST, Height, 104, kg, 01/19/20 3:57:00 EDT, Dry Weight Start Date: 01/22/20 Stop Date: 07/20/20 Status: Ordered Ventolin HFA 108 mcg/inh inhalation aerosol with adapter 2 puffs, Inhalation, 4 times a day, PRN for wheezing, # 8 Gm, 5 Refills, Maintenance, 12/20/19 11:27:00 EDT, Aerosol, [facility]/pharmacy #[facility]39, 156.6, cm, 10/23/19 15:34:00 EDT, Height Start Date: 12/20/19 Status: Ordered warfarin 5 mg oral tablet 1 tablet = 5 mg, By Mouth, Daily, # 30 tablet, 5 Refills, Maintenance, 02/26/20 12:12:00 EST, Tablet, [facility]/pharmacy #[id number], 160, cm, 01/26/20 9:40:00 EST, [...]
--- OUTSIDE RECORDS SUMMARY | 2023-08-02 08:31 | XMS_ITS | Continuity of Care Document ---
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 4Admin Note: [employer] 5Admin Note: [employer],[place] 6Admin Note: Novaritis Medications Abilify 5 mg oral tablet 5 mg, 1, tablet, By Mouth, Daily, to be combined with the citalopram therapy, # 30 tablet, Refills 11, Tot. Refills 11, Maintenance, 07/31/19 14:19:00 EDT, [id number], cm, 07/31/19 13:53:00 EDT, Height, 1... Start Date: 07/31/19 Status: Ordered Ativan 0.5 mg oral tablet 1 tablet = 0.5 mg, By Mouth, 3 times a day, PRN anxiety, # 90 tablet, 2 Refills, Maintenance, 02/26/20 20:28:00 EST, Tablet[facility], cm, 01/26/20 9:40:00 EST, Height, 104, kg, 01/19/20 3:57:00 EDT, Dry Weight Start Date: 02/26/20 Status: Ordered atorvastatin 40 mg oral tablet 1 tablet = 40 mg, By Mouth, Daily, # 90 tablet, 1 Refills, Maintenance, 11/16/19 10:37:00 EDT, [facility], cm, 10/23/19 15:34:00 EDT, Height, Dry Weight Start Date: 11/16/19 Status: Ordered citalopram 40 mg oral tablet 1 tablet, By Mouth, Daily, # 90 tablet, 1 Refills, Maintenance, 10/03/19 13:25:00 EDT, [facility], 157, cm, 08/25/19 15:55:00 EDT, Height Start [...] PRINCESS, 10/17/18 11:44:10 EDT, Compound Start Date: 7/29/19 Status: Ordered Dilaudid 2 mg oral tablet 1 tablet = 2 mg, By Mouth, Daily, PRN Pain , Mild, On substance agreement evaluated every 3 to 6 months, # 28 tablet, 0 Refills, Maintenance, 02/07/20 16:16:00 EST, Tablet, [facility]/pharmacy #[id number], parital fill upon patient request, 160, cm, 01/26/20 9:4... Start Date: 02/07/20 Status: Ordered Dulera 100 mcg-5 mcg/inh inhalation aerosol 2 puffs, Inhalation, 2 times a day, # 1 each, 11 Refills, Maintenance, 07/31/19 14:15:00 EDT, Aerosol, [facility]/pharmacy #[facility]39, 2 puffs Inhalation 2 times a day, 157, cm, 07/31/19 13:53:00 EDT, Height, 104, kg, 08/03/17 12:54:00 EDT, Dry Weight Start Date: 07/31/19 Status: Ordered ferrous sulfate 325 mg oral enteric coated tablet 325 mg, By Mouth, 2 times a day, # 60 tablet, Refills 1, Tot. Refills 1, Maintenance, 03/14/20 13:59:00 EST, Route to Pharmacy Electronically, [facility]/pharmacy #[id number], 160, cm, 02/28/20 10:28:00 EST, Height, 104, kg, 01/19/20 3:57:00 EDT, Dry Weight Start Date: 03/14/20 Status: Ordered Lasix 40 mg oral tablet 40 mg, 1, tablet, By Mouth, Daily, # 30 tablet, Refills 5, Tot. Refills 5, Maintenance, 03/11/20 13:11:00 EST, Route to Pharmacy Electronically, [facility]/pharmacy #2339, 160, cm, 02/28/20 10:28:00 EST, Height, 104, kg, 01/19/20 3:57:00 EDT, Dry Weight Start Date: 03/11/20 Status: Ordered lisinopril 10 mg oral tablet 10 mg, 1, tablet, By Mouth, Daily, # 90 tablet, Refills 0, Tot. Refills 0, Maintenance, 02/26/20 14:41:00 EST, Route to Pharmacy Electronically, [facility]/pharmacy #[id number], Partial fill upon patient request [...] tablet, 0 Refills, Maintenance, 03/11/20 15:21:00 EST, [facility]/pharmacy #[id number], parital fill upon patient request, 160, cm, ... Start Date: 03/11/20 Stop Date: 04/10/20 Status: Ordered morphine 30 mg/8 to 12 hr oral tablet, extended release 1 tablet = 30 mg, By Mouth, 3 times a day, OPIATE AGREEMENT evaluated every 3 to 6 months, # 84 tablet, 0 Refills, Maintenance, 02/07/20 16:16:00 EST, [facility]/pharmacy #[id number], may fill for less, 160, cm, 01/26/20 9:40:00 EST, Height, 104, kg, 01/19/20 3:5... Start Date: 02/07/20 Stop Date: 03/06/20 Status: Ordered Multivitamin Daily, 0 Refills, Maintenance, 05/25/16 13:36:30 Start Date: 05/25/16 Status: Ordered Nicoderm C-Q 21 mg/24 hr transdermal film, extended release 1 patch, Topically, Daily, # 30 patch, 3 Refills, Maintenance, 08/25/19 16:23:00 EDT, Patch, [facility]/pharmacy #[facility]39, 157, cm, 08/25/19 15:55:00 EDT, Height Start Date: 08/25/19 Status: Ordered [facility] use with inhaler [facility] use with inhaler, See Instructions, # [...] 01/22/20 9:08:00 EST, Route to Pharmacy Electronically, [facility]/pharmacy #[id number], 160, cm, 01/22/20 7:53:00 EST, Height, 104, kg, 01/19/20 3:57:00 EDT, Dry Weight Start Date: 01/22/20 Stop Date: 07/20/20 Status: Ordered Ventolin HFA 108 mcg/inh inhalation aerosol with adapter 2 puffs, Inhalation, 4 times a day, PRN for wheezing, # 8 Gm, 5 Refills, Maintenance, 12/20/19 11:27:00 EDT, Aerosol, [facility]/pharmacy #[facility]39, 156.6, cm, 10/23/19 15:34:00 EDT, Height Start Date: 12/20/19 Status: Ordered warfarin 5 mg oral tablet 1 tablet = 5 mg, By Mouth, Daily, # 30 tablet, 5 Refills, Maintenance, 02/26/20 12:12:00 EST, Tablet, [facility]/pharmacy #[facility]39, 160, cm, 01/26/20 9:40:00 EST, [...]
--- OUTSIDE RECORDS SUMMARY | 2023-08-02 08:31 | XMS_ITS | Continuity of Care Document ---
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 Name Role Phone Jose Martinez MD Primary Care Physician [phone] Encounter [facility] Date(s): 10/20/19 - 11/19/19 [facility] [address] [place] [address]- [facility] Attending Physician: Annetta Steinberg Allergies, Adverse Reactions, Alerts Substance Reaction Severity Status Nembutal Active Cordran Tape Active Chantix Active traZODone daytime gogginess Active Immunizations Given and Recorded Vaccine Date Status Refusal Reason tetanus/diphtheria/pertussis, acel(Tdap) 10/20/19 Given influenza virus vaccine, [...] inactive(oldterm) 6 01/21/09 Given 1Result Comment: [01/19/2018] [id number] 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 4Admin Note: [employer] 5Admin Note: Boost[employer]/Rixensart,[place] 6Admin Note: Novaritis Medications Abilify 5 mg oral tablet 5 mg, 1, tablet, By Mouth, Daily, to be combined with the citalopram therapy, # 30 tablet, Refills 11, Tot. Refills 11, Maintenance, 07/31/19 14:19:00 EDT, Route to Pharmacy Electronically, [facility]/pharmacy #2339, 157, cm, 07/31/19 13:53:00 EDT, Height, 1... Start Date: 07/31/19 Status: Ordered amLODIPine 5 mg oral tablet 5 mg, 1, tablet, By Mouth, Daily, # 90 tablet, Refills 0, Tot. 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 Refills 0, Maintenance, 08/04/17 9:05:52 EDT, Route to Pharmacy Electronically, [id number], [facility] 3 Start Date: 08/04/17 Status: Ordered Ativan 0.5 mg oral tablet 1 tablet = 0.5 mg, By Mouth, 3 times a day, PRN anxiety, # 90 tablet, 2 Refills, Maintenance, 07/24/19 17:04:00 EDT, Tablet, [facility], 157, cm, 04/21/19 10:26:00 EST, Height, 104, kg, 08/03/17 12:54:00 EDT, Dry Weight Start Date: 07/24/19 Status: Ordered atorvastatin 40 mg oral tablet 1 tablet = 40 mg, By Mouth, Daily, # 90 tablet, 1 Refills, Maintenance, 11/16/19 10:37:00 EDT, Tablet, [facility], 156.6, cm, 10/23/19 15:34:00 EDT, Height, Dry Weight Start Date: 11/16/19 Status: Ordered citalopram 40 mg oral tablet 1 tablet, By Mouth, Daily, # 90 tablet, 1 Refills, Maintenance, 10/03/19 13:25:00 EDT, [facility], 157, cm, 08/25/19 15:55:00 EDT, Height Start [...] months, # 28 tablet, 0 Refills, Maintenance, 11/15/19 16:47:00 EDT, Tablet, [facility], parital fill upon patient request, 156.6, cm, 10/23/19 1... Start Date: 11/15/19 Status: Ordered Dulera 100 mcg-5 mcg/inh inhalation aerosol 2 puffs, Inhalation, 2 times a day, # 1 each, 11 Refills, Maintenance, 07/31/19 14:15:00 EDT, Aerosol, [facility], 2 puffs Inhalation 2 times a day, 157, cm, 07/31/19 13:53:00 EDT, Height, 104, kg, 08/03/17 12:54:00 EDT, Dry Weight Start Date: 07/31/19 Status: Ordered morphine 15 mg/8 to 12 hr oral tablet, extended release 1 tablet = 15 mg, By Mouth, Every 8 hours, PRN Pain , Moderate, On substance agreement evaluated every 3 to 6 months, # 90 tablet, 0 Refills, Maintenance, 11/15/19 16:47:00 EDT, [facility]/pharmacy #2339, parital fill upon patient request, 156.6, cm, 10/22... Start Date: 11/15/19 Stop Date: 12/15/19 Status: Ordered morphine 30 mg/8 to 12 hr oral tablet, extended release 1 tablet = 30 mg, By Mouth, 3 times a day, OPIATE AGREEMENT evaluated every 3 to 6 months, # 84 tablet, 0 Refills, Maintenance, 11/15/19 16:47:00 EDT, [facility]/pharmacy #2339, may fill for less, 156.6, cm, 10/23/19 15:34:00 EDT, Height, Dry Weight Start Date: 11/15/19 Stop Date: 12/13/19 Status: Ordered Multivitamin Daily, 0 Refills, Maintenance, 05/25/16 13:36:30 Start Date: 05/25/16 Status: Ordered Narcan 4 mg/0.1 mL nasal spray See Instructions, use for signs of respiratory distress may repeat every 2 to 3 minutes until patient responds, # 2 each, 0 Refills, Soft Stop, 05/10/19 16:02:00 EST, [facility]/pharmacy #2339, 157, cm, 04/21/19 10:26:00 EST, Height, 104, kg, 08/03/17 12:... Start Date: 05/10/19 Status: Ordered Nicoderm C-Q 21 mg/24 hr transdermal film, extended release 1 patch, Topically, Daily, # 30 patch, 3 Refills, Maintenance, 08/25/19 16:23:00 EDT, Patch, [facility]/pharmacy #2339, 157, cm, 08/25/19 15:55:00 EDT, Height Start Date: 08/25/19 Status: Ordered [facility] use with inhaler [facility] use with inhaler, See Instructions, # 1 each, Refills 0, Tot. Refills 0, Maintenance, DX: Asthma, 09/09/18 16:10:45 EDT, Compound Start Date: 09/09/18 Status: Ordered ProAir HFA 90 mcg/inh inhalation aerosol with adapter 2, puffs, Inhalation, Every 4 hours, # 1 each, Refills 11, Tot. Refills 11, Maintenance, 01/13/19 9:28:48 EDT, Print Requisition Start Date: 01/13/19 Stop Date: 01/08/20 Status: Ordered ProAir HFA 90 mcg/inh inhalation aerosol with adapter 2, puffs, Inhalation, 4 times a day, PRN, # 8.5 Gm, Refills 5, Tot. Refills 5, Maintenance, 10/28/18 14:55:12 EDT, Aerosol, Route to Pharmacy Electronically, [id number], [facility]/pharmacy #2339 Start Date: 10/28/18 Status: Ordered spacer for use with MDI spacer for use with MDI, See Instructions, # 1 each, Refills 0, Tot. Refills 0, Maintenance, use with ProAir prn; dx bronchospasm, 08/25/19 16:12:00 EDT, Supply, 157, cm, 08/25/19 15:55:00 EDT, Height Start Date: 08/25/19 Status: Ordered Toprol XL 25 mg oral tablet, extended release 25 mg, 1, tablet, By Mouth, Daily, # 30 tablet, Refills 4, Tot. Refills 4, Maintenance, 10/23/19 15:22:00 EDT, Route to Pharmacy Electronically, [facility]/pharmacy #2339, 156.5, cm, 10/20/19 16:01:00 EDT, Height Start Date: 10/23/19 Status: Ordered torsemide 5 mg oral tablet 1 tablet = 5 mg, By Mouth, Daily, # 30 tablet, 11 Refills, Maintenance, 10/20/19 16:34:00 EDT, [facility]/pharmacy #2339, 156.5, cm, 10/20/19 16:01:00 EDT, Height Start Date: 10/20/19 Status: Ordered Ventolin HFA 108 mcg/inh inhalation aerosol with adapter 2 puffs, Inhalation, 4 times a day, # 1 each, 11 Refills, Maintenance, 01/19/19 13:07:29 EDT, Insurance [employer] not ocver ProAir. Start Date: 01/19/19 Stop Date: 01/14/20 Status: Ordered warfarin 5 mg oral tablet 1 tablet = 5 mg, By Mouth, Daily, # 30 tablet, 11 Refills, Maintenance, 11/04/18 10:22:37 EDT, Tablet Start Date: 11/04/18 Status: Ordered Problem List Condition Effective Dates [...] History Social History Type Response Smoking Status Former smoker; Type: Cigarettes; Other: Quit 12/03/14; entered on: 12/10/14 Sex
--- OUTSIDE RECORDS SUMMARY | 2023-08-02 08:31 | XMS_ITS | Continuity of Care Document ---
Author Organization [facility] Address [address] [place] [address]- Care Team Providers Care Cashier Credit Name Role Phone Jose Martinez MD Primary Care Physician Encounter [facility] Date(s): 02/19/22 - 03/21/22 [facility] [address] [place] [address]- Attending Physician: Annetta Steinberg Admitting Physician: Annetta Steinberg Referring Physician: Annetta tSeinberg Allergies, Adverse Reactions, Alerts Substance Reaction Severity Status Nembutal Hyperventalating Active traZODone daytime gogginess Active Cordran Tape BLISTERS Active Chantix Active Immunizations Given and Recorded Vaccine Date Status Refusal Reason tetanus-diphtheria toxoids (Td) 02/05/22 Given zoster vaccine, inactivated 02/04/22 Recorded influenza virus vaccine, inactivated 02/04/22 Vladimir rded influenza virus vaccine, inactivated 1 12/27/20 Gi lincoln influenza virus vaccine, inactivated 01/13/19 Give n influenza virus vaccine, inactivated 2 01/19/18 Gi lincoln influenza virus vaccine, inactivated 01/22/17 Give n influenza virus vaccine, inactivated 03/06/16 Give n influenza virus vaccine, inactivated 12/28/12 Give n influenza virus vaccine, inactivated 3 01/03/08 Gi lincoln influenza virus vaccine, inactivated 4 02/09/06 Gi lincoln SARS-CoV-2 (COVID-19) mRNA-1273 vaccine 03/31/21 R ecorded SARS-CoV-2 (COVID-19) mRNA-1273 vaccine 06/26/20 R ecorded SARS-CoV-2 (COVID-19) mRNA-1273 vaccine 05/28/20 R ecorded Influenza Virus Vaccine (oldterm) 01/15/20 Recorde d tetanus/diphtheria/pertussis, acel(Tdap) 10/20/19 Given FluLaval (oldterm) 5 03/08/12 Given Pneumococcal Poly (PPV23) (oldterm) 06/02/11 Given Tet/Diphth/Acel, Pertussis (oldterm) 6 02/25/09 Gi lincoln influ virus vac, H1N1, inactive(oldterm) 7 01/21/09 Given 1Result Comment: 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 5Admin Note: [employer] [facility] 6Admin Note: Boostrix/Rixensart,[place] 7Admin Note: Novaritis Medications Albuterol (Eqv-ProAir HFA) 2 puffs, Inhalation, Every 6 hours, 0 Refills, Maintenance, 10/13/21 13:54:00 EDT, Partial fill upon patient request if the prescription is for a schedule II opioid drug. Start Date: 10/13/21 Status: Ordered amLODIPine 10 mg oral tablet 1 tablet, By Mouth, Daily, # 90 tablet, 3 Refills, Maintenance, 02/23/22 8:50:00 EST, [facility], 157.48, cm, 01/20/22 14:40:00 EDT, Height, 111, kg, 06/10/21 15:06:00 EDT, Dry Weight Start Date: 02/23/22 Status: Ordered ARIPiprazole 5 mg oral tablet 1, tablet, By Mouth, Daily, for 90 days, TO BE COMBINED WITH THE CITALOPRAM THERAPY, # 90 tablet, Refills 3, Tot. Refills 3, Physician Stop 08/01/22 9:00:00 EDT, 08/06/21 9:00:00 EDT, Route to Pharmacy Electronically, [facility]/pharmacy #2339, 157.48, cm, 0... Start Date: 08/06/21 Stop Date: 08/01/22 Status: Ordered aspirin 81 mg oral delayed release tablet 81 mg, By Mouth, Daily, # 30 tablet, Refills 11, Tot. Refills 11, Maintenance, 06/12/21 9:27:00 EDT, Route to Pharmacy Electronically, [facility], Partial fill upon patient request if the prescription is for a schedule II opioid drug., 1... Start Date: 06/12/21 Stop Date: 06/07/22 Status: Ordered Ativan 0.5 mg oral tablet 1 tablet = 0.5 mg, By Mouth, Daily at bedtime, PRN as needed for anxiety, # 30 tablet, 3 Refills, Maintenance, 01/15/22 13:14:00 EDT, Tablet, [facility]/pharmacy #2339, Partial fill upon patient request if the prescription is for a schedule II opioid drug.,... Start Date: 01/15/22 Status: Ordered citalopram 40 mg oral tablet 1 tablet, By Mouth, Daily, for 90 days, # 90 tablet, 3 Refills, Physician Stop 08/01/22 9:01:00 EDT, 08/06/21 9:01:00 EDT, [facility]/pharmacy #2339, 157.48, cm, 08/05/21 14:31:00 [...] EVERY DAY, # 90 tablet, 1 Refills, [facility] 85157, 90, TAKE 1 TABLET BY MOUTH EVERY DAY, 157.48, cm, 08/12/21 10:44:00 EDT, Height, 111, kg, 06/10/21 15:06:00 EDT, Dry Weight Start Date: 10/31/21 Status: Ordered DAILY ERICA TABLET DAILY ERICA TABLET, 1, tablet, By Mouth, Daily, # 90 tablet, 3 Refills, Maintenance, 02/23/22 8:50:00 EST, 157.48, cm, 01/20/22 14:40:00 EDT, Height, 111, kg, 06/10/21 15:06:00 EDT, Dry Weight Start Date: 02/23/22 Status: Ordered Dulera 100 mcg-5 mcg/inh inhalation aerosol 2 puffs, Inhalation, 2 times a day, # 1 each, 11 Refills, 06/02/21 14:01:00 EDT, [facility]/pharmacy #2339, 2 puffs Inhalation 2 times a day, 160, cm, 06/02/21 13:26:00 EDT, Height, 103, kg, 04/10/20 11:20:00 EST, Dry Weight Start Date: 06/02/21 Status: Ordered Entresto 24 mg-26 mg oral tablet 1 tablet, By Mouth, 2 times a day, # 60 tablet, 11 Refills, [facility] 17589, 30, TAKE 1 TABLET BY MOUTH TWICE [...] 08/06/21 9:01:00 EDT, Route to Pharmacy Electronically, [facility]/pharmacy #2339, 157.48, cm, 08/05/21 14:31:00 EDT, Height, 111,... Start Date: 08/06/21 Stop Date: 08/01/22 Status: Ordered furosemide 20 mg oral tablet 1, tablet, By Mouth, Daily, # 30 tablet, Refills 5, Maintenance, 12/30/21 15:04:00 EDT, Route to Pharmacy Electronically, [facility] 08553, 157.48, cm, 11/04/21 11:33:00 EDT, Height, 111, kg, 06/10/2214:06:00 EDT, Dry Weight Start Date: 12/30/21 Status: Ordered Lipitor 80 mg oral tablet 1 tablet = 80 mg, By Mouth, Daily at bedtime, # 30 tablet, 11 Refills, Maintenance, 06/12/21 9:27:00 EDT, Tablet, [facility], Partial fill upon patient request if the prescription is for a schedule II opioid drug., 157.48, cm, 06/10/21 1... Start Date: 06/12/21 Status: Ordered metoprolol 100 mg oral tablet, extended release 150 mg, 1.5, tablet, By Mouth, Daily, # 45 tablet, Refills 6, Tot. Refills 6, Maintenance, 01/20/2214:50:00 EDT, Route to Pharmacy Electronically, [facility]/pharmacy #2339, Partial fill upon patient request if the prescription is for a schedule II opioid d... Start Date: 01/20/22 Status: Ordered morphine 15 mg/8 to 12 hr oral tablet, extended release 1 tablet = 15 mg, By Mouth, Every 8 hours, PRN Pain , Moderate, On substance agreement evaluated every 3 to 6 months, # 84 tablet, 0 Refills, Maintenance, 08/19/21 14:03:00 EDT, [facility]/pharmacy #2339, parital fill upon patient request, 157.48, cm, 2... Start Date: 08/19/21 Stop Date: 09/16/21 Status: Ordered morphine 15 mg/8 to 12 hr oral tablet, extended release 1 tablet = 15 mg, By Mouth, Every 8 hours, PRN Pain , Moderate, On substance agreement evaluated every 3 to 6 months, # 84 tablet, 0 Refills, Maintenance, 11/25/21 15:15:00 EDT, [facility]/pharmacy #2339, parital fill upon patient [...] rOPINIRole 0.25 mg oral tablet See Instructions, LEILANIJE 1 TABLET BY MOUTH AT BEDTIME FOR 1 WEEK THEN INCRAESE TO 2 AT NIGHT FOR 1 WEEK THEN 3 EVERY NIG, # 90 tablet, 5 Refills, Maintenance, 02/23/22 8:50:00 EST, [facility] 14[facility], 157.48, cm, 01/20/22 14:40:00 EDT, Height, 111, kg, ... Start Date: 02/23/22 Status: Ordered warfarin 5 mg oral tablet 0.5 tablet = 2.5 mg, By Mouth, Daily, Goal INR 2-3 Please follow up with your coumadin clinic, # 15tablet, 0 Refills, Maintenance, 06/12/21 9:27:00 EDT, Tablet, [facility], Partial fill upon patient request if the prescription is for a... Start Date: 06/12/21 Status: Ordered Problem List Condition Confirmation Course Effective Dates Status H ealth Status Informant Asthma Confirmed Active Atrial fibrillation Confirmed Active Back pain 1 Confirmed Active Major depression, chronic Confirmed Active CHF (congestive heart failure) (HYUE90-53% on echo 2019) Confirmed Active Continuous opioid [...] on: 01/18/20 Sex Patient Care team information Care Team Personnel Name: Radha Villela Position: S RN Supv Member Role: Primary Care Nurse Name: Nichole Coates RN Position: [facility] RN Member Role: Primary Care Nurse Name: Ksenia Herzog RN Position: S RN Member Role: Primary Care Nurse Name: Leatha Walsh RN Position: S RN Member Role: Primary Care Nurse Name: Milagro Sims RN Position: S RN Member Role: Primary Care Nurse Name: Jo Ann Stubbs PharmD Position: [facility] Associate Professional Member Role: [employer] Consulting Provider Address: Address: [address] [place] [id number]- [place] Name: Anne Gonzalez RN Position: [facility] RN Member Role: Primary Care Nurse Name: Mckayla Wilcox RN Position: [facility] SN RN Member Role: Primary Care Nurse Name: Simin Chen RN Position: [facility] RN Member Role: Primary Care Nurse Name: Jose Martinez MD Position: [facility] Primary Care Physician Member Role: PCP Address: Address: [address] [place] [address]- [place] Name: Aleks Merchant RN Position: [facility] RN Member Role: Primary Care Nurse Name: Genet Bowman RN Position: [facility] SN RN Member Role: Primary Care Nurse Name: Ilana Burns RN Position: [facility] RN Member Role: Primary Care Nurse Care Team Related Persons Name: TUTU ROWLAND Address: [address] [place] [address] Name: JANET CONNOR Address: [address] [place] [address]
--- OUTSIDE RECORDS SUMMARY | 2023-08-02 08:31 | XMS_ITS | Continuity of Care Document ---
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 4Admin Note: [employer] 5Admin Note: [employer],[place] 6Admin Note: Novaritis Medications amLODIPine 5 mg oral tablet 5 mg, 1, tablet, By Mouth, Daily, # 90 tablet, Refills 1, Tot. Refills 1, Maintenance, 09/02/18 11:06:29 EDT, Route to Pharmacy Electronically, [id number], [facility]/pharmacy #2339 Start Date: 09/02/18 Stop Date: 03/01/19 Status: Ordered amoxicillin 500 mg oral capsule 4 capsule = 2,000 mg, By Mouth, scallop raker to Procedure, 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 Refills 0, Maintenance, 08/04/17 9:05:52 EDT, Route to Pharmacy Electronically, [id number], [facility] 3 Start Date: 08/04/17 Status: Ordered Ativan 0.5 mg oral tablet 1 tablet = 0.5 mg, By Mouth, 3 times a day, PRN anxiety, # 90 tablet, 2 Refills, Maintenance, 03/20/19 16:41:00 EST, Tablet, [facility]/pharmacy #2339, 157, cm, 01/13/19 9:10:00 EDT, Height, 104, kg, 08/03/17 12:54:00 EDT, Dry Weight Start Date: 03/20/19 Status: Ordered atorvastatin 40 mg oral tablet 1 tablet = 40 mg, By Mouth, Daily, # 30 tablet, 5 Refills, Maintenance, 03/20/19 15:53:00 EST, Tablet, [facility]/pharmacy #2339, 157, cm, 01/13/19 9:10:00 EDT, Height, 104, kg, 08/03/17 12:54:00 EDT, Dry Weight Start Date: 03/20/19 Status: Ordered CeleXA 40 mg oral tablet 1, tablet, By Mouth, Daily, # 90 tablet, Refills 1, Tot. Refills 1, Maintenance, 03/20/19 16:10:00 EST, Route to Pharmacy Electronically, [facility]/pharmacy #2339, 157, cm, 01/13/19 9:10:00 EDT, Height, 104, kg, 08/03/17 12:54:00 EDT, Dry Weight Start Date: 03/20/19 Stop Date: 09/16/19 Status: Ordered CPAP Machine See Instructions, # [...] months, # 28 tablet, 0 Refills, Maintenance, 03/13/19 12:38:00 EST, Tablet, [facility]/pharmacy #[id number], parital fill upon patient request, 03/14/19, 157, cm, 10... Start Date: 03/13/19 Status: Ordered morphine 15 mg/8 to 12 hr oral tablet, extended release 1 tablet = 15 mg, By Mouth, Every 8 hours, PRN Pain , Moderate, On substance agreement evaluated every 3 to 6 months, # 90 tablet, 0 Refills, Maintenance, 04/12/19 9:47:00 EST, [facility]/pharmacy #[id number], parital fill upon patient request, 04/12/19, 157, cm... Start Date: 04/12/19 Stop Date: 05/12/19 Status: Ordered morphine 30 mg/8 to 12 hr oral tablet, extended release 1 tablet = 30 mg, By Mouth, 3 times a day, OPIATE AGREEMENT evaluated every 3 to 6 months, # 84 tablet, 0 Refills, Maintenance, 03/13/19 12:38:00 EST, [facility]/pharmacy #2339, may fill for less, 03/14/19,157, cm, 01/13/19 9:10:00 EDT, Height, 104, kg, 05... Start Date: 03/13/19 Stop Date: 04/10/19 Status: Ordered Multivitamin Daily, 0 Refills, Maintenance, 05/25/16 13:36:30 Start Date: 05/25/16 Status: Ordered Nicoderm C-Q 21 mg/24 hr transdermal film, extended release 1 patch, Topically, Daily, # 30 patch, 1 Refills, Maintenance, 12/15/18 9:01:40 EDT, Patch Start Date: 12/15/18 Status: Ordered Nicoderm C-Q 21 mg/24 hr transdermal film, extended release 1 patch, Topically, Daily, # 30 patch, 1 Refills, Maintenance, 06/29/18 14:28:23 EDT, Patch Start Date: 06/29/18 Status: Ordered Healthy [employer]vest [facility] use with inhaler [facility] use with inhaler, See Instructions, # 1 each, Refills 0, Tot. Refills 0, Maintenance, DX: Asthma, 09/09/18 16:10:45 EDT, Compound Start Date: 09/09/18 Status: Ordered pantoprazole 40 mg oral delayed release tablet 1 tablet = 40 mg, By Mouth, Daily, # 30 tablet, 5 Refills, Maintenance, 07/22/18 12:07:22 EDT, EC Tablet Start Date: 07/22/18 Status: Ordered ProAir HFA 90 mcg/inh inhalation [...] 14:55:12 EDT, Aerosol, Route to Pharmacy Electronically, [id number], [facility]/pharmacy #[id number] Start Date: 10/28/18 Status: Ordered Ventolin HFA 108 mcg/inh inhalation [...]
--- OUTSIDE RECORDS SUMMARY | 2023-08-02 08:31 | XMS_ITS | Continuity of Care Document ---
Author Organization [facility] Address [address] [place] [id number]- Care Team Providers Care Informatics Analyst Name Role Phone Jose Martinez MD Primary Care Physician Encounter [facility] [place] Date(s): 01/23/20 - 03/20/20 [facility] [address] [place] [id number]- Attending Physician: Will Castillo MD Admitting Physician: Will Castillo MD Allergies, Adverse Reactions, Alerts Substance Reaction Severity Status Nembutal Active Cordran Tape Active traZODone daytime gogginess Active Chantix Active Immunizations Given and Recorded [...] inactive(oldterm) 6 01/21/09 Given 1Result Comment: [01/19/2018] [id number] 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 4Admin Note: Givey [place] 5Admin Note: [employer],[place] 6Admin Note: Novaritis Medications Abilify 5 mg oral tablet 5 mg, 1, tablet, By Mouth, Daily, to be combined with the citalopram therapy, # 30 tablet, Refills 11, Tot. Refills 11, Maintenance, 07/31/19 14:19:00 EDT, [id number], cm, 07/31/19 13:53:00 EDT, Height, 1... Start Date: 07/31/19 Status: Ordered Ativan 0.5 mg oral tablet 1 tablet = 0.5 mg, By Mouth, 3 times a day, PRN anxiety, # 90 tablet, 2 Refills, Maintenance, 02/26/20 20:28:00 EST, Tablet[id number] 160, cm, 01/26/20 9:40:00 EST, Height, 104, kg, 01/19/20 3:57:00 EDT, Dry Weight Start Date: 02/26/20 Status: Ordered atorvastatin 40 mg oral tablet 1 tablet = 40 mg, By Mouth, Daily, # 90 tablet, 1 Refills, Maintenance, 11/16/19 10:37:00 EDT, [facility]t, [facility] 156.6, cm, 10/23/19 15:34:00 EDT, Height, Dry Weight Start Date: 11/16/19 Status: Ordered citalopram 40 mg oral tablet 1 tablet, By Mouth, Daily, # 90 tablet, 1 Refills, Maintenance, 10/03/19 13:25:00 EDT, [id number], 157, cm, 08/25/19 15:55:00 EDT, Height Start [...] 0 Refills, Maintenance, 02/07/20 16:16:00 EST, Tablet, [facility]/pharmacy #[id number], parital fill upon patient request, 160, cm, 01/26/20 9:4... Start Date: 02/07/20 Status: Ordered Dulera 100 mcg-5 mcg/inh inhalation aerosol 2 puffs, Inhalation, 2 times a day, # 1 each, 11 Refills, Maintenance, 07/31/19 14:15:00 EDT, Aerosol, [facility]/pharmacy #[id number], 2 puffs Inhalation 2 times a day, 157, cm, 07/31/19 13:53:00 EDT, Height, 104, kg, 08/03/17 12:54:00 EDT, Dry Weight Start Date: 07/31/19 Status: Ordered ferrous sulfate 325 mg oral enteric coated tablet 325 mg, By Mouth, 2 times a day, # 60 tablet, Refills 1, Tot. Refills 1, Maintenance, 03/14/20 13:59:00 EST, Route to Pharmacy Electronically, [facility]/pharmacy #[id number], 160, cm, 02/28/20 10:28:00 EST, Height, 104, kg, 01/19/20 3:57:00 EDT, Dry Weight Start Date: 03/14/20 Status: Ordered Lasix 40 mg oral tablet 40 mg, 1, tablet, By Mouth, Daily, # 30 tablet, Refills 5, Tot. Refills 5, Maintenance, 03/11/20 13:11:00 EST, Route to Pharmacy Electronically, [facility]/pharmacy #[id number], 160, cm, 02/28/20 10:28:00 EST, Height, 104, kg, 01/19/20 3:57:00 EDT, Dry Weight Start Date: 03/11/20 Status: Ordered lisinopril 10 mg oral tablet 10 mg, 1, tablet, By Mouth, Daily, # 90 tablet, Refills 0, Tot. Refills 0, Maintenance, 02/26/20 14:41:00 EST, Route to Pharmacy Electronically, [facility]/pharmacy #[id number], Partial fill upon patient request [...] tablet, 0 Refills, Maintenance, 03/11/20 15:21:00 EST, [facility]/pharmacy #[id number], parital fill upon patient request, 160, cm, ... Start Date: 03/11/20 Stop Date: 04/10/20 Status: Ordered morphine 30 mg/8 to 12 hr oral tablet, extended release 1 tablet = 30 mg, By Mouth, 3 times a day, OPIATE AGREEMENT evaluated every 3 to 6 months, # 84 tablet, 0 Refills, Maintenance, 02/07/20 16:16:00 EST, [facility]/pharmacy #[id number], may fill for less, 160, cm, 01/26/20 9:40:00 EST, Height, 104, kg, 01/19/20 3:5... Start Date: 02/07/20 Stop Date: 03/06/20 Status: Ordered Multivitamin Daily, 0 Refills, Maintenance, 05/25/16 13:36:30 Start Date: 05/25/16 Status: Ordered Nicoderm C-Q 21 mg/24 hr transdermal film, extended release 1 patch, Topically, Daily, # 30 patch, 3 Refills, Maintenance, 08/25/19 16:23:00 EDT, Patch, [facility]/pharmacy #[id number], 157, cm, 08/25/19 15:55:00 EDT, Height Start Date: 08/25/19 Status: Ordered [facility] use with inhaler [facility] use with inhaler, See Instructions, # [...] 01/22/20 9:08:00 EST, Route to Pharmacy Electronically, [facility]/pharmacy #[id number], 160, cm, 01/22/20 7:53:00 EST, Height, 104, kg, 01/19/20 3:57:00 EDT, Dry Weight Start Date: 01/22/20 Stop Date: 07/20/20 Status: Ordered Ventolin HFA 108 mcg/inh inhalation aerosol with adapter 2 puffs, Inhalation, 4 times a day, PRN for wheezing, # 8 Gm, 5 Refills, Maintenance, 12/20/19 11:27:00 EDT, Aerosol, [facility]/pharmacy #2339, 156.6, cm, 10/23/19 15:34:00 EDT, Height Start Date: 12/20/19 Status: Ordered warfarin 5 mg oral tablet 1 tablet = 5 mg, By Mouth, Daily, # 30 tablet, 5 Refills, Maintenance, 02/26/20 12:12:00 EST, Tablet, [facility]/pharmacy #[id number], 160, cm, 01/26/20 9:40:00 EST, Height, [...] Response Smoking Status 5-9 cigarettes (betw een 03/25 to 1/2 pack)/day in last 30 days; Other: Started at 23 years old; entered on: 01/18/20 Sex
--- OUTSIDE RECORDS SUMMARY | 2023-08-02 08:32 | XMS_ITS | Continuity of Care Document ---
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 4Admin Note: [employer] 5Admin Note: [employer],[place] 6Admin Note: Novaritis Medications Abilify 5 mg oral tablet 5 mg, 1, tablet, By Mouth, Daily, to be combined with the citalopram therapy, # 30 tablet, Refills 11, Tot. Refills 11, Maintenance, 07/31/19 14:19:00 EDT, [id number], cm, 07/31/19 13:53:00 EDT, Height, 1... Start Date: 07/31/19 Status: Ordered Ativan 0.5 mg oral tablet 1 tablet = 0.5 mg, By Mouth, 3 times a day, PRN anxiety, # 90 tablet, 2 Refills, Maintenance, 02/26/20 20:28:00 EST, Tablet, [facility]/pharmacy #2339, 160, cm, 01/26/20 9:40:00 EST, Height, 104, kg, 01/19/20 3:57:00 EDT, Dry Weight Start Date: 02/26/20 Status: Ordered atorvastatin 40 mg oral tablet 1 tablet = 40 mg, By Mouth, Daily, # 90 tablet, 1 Refills, Maintenance, 11/16/19 10:37:00 EDT, Tablet, [facility]/pharmacy #2339, 156.6, cm, 10/23/19 15:34:00 EDT, Height, Dry Weight Start Date: 11/16/19 Status: Ordered citalopram 40 mg oral tablet 1 tablet, By Mouth, Daily, # 90 tablet, 1 Refills, Maintenance, 04/04/20 11:03:00 EST, [facility]/pharmacy#2339, 162.5, cm, 04/03/20 11:38:00 EST, Height, 108, [...] 0 Refills, Maintenance, 04/30/20 17:05:00 EST, Tablet, [facility]/pharmacy #[id number], parital fill upon patient request, 162.5, cm, 04/10/20 1... Start Date: 04/30/20 Status: Ordered Dulera 100 mcg-5 mcg/inh inhalation aerosol 2 puffs, Inhalation, 2 times a day, # 1 each, 11 Refills, Maintenance, 07/31/19 14:15:00 EDT, Aerosol, [facility]/pharmacy #2339, 2 puffs Inhalation 2 times a day, 157, cm, 07/31/19 13:53:00 EDT, Height, 104, kg, 08/03/17 12:54:00 EDT, Dry Weight Start Date: 07/31/19 Status: Ordered ferrous sulfate 325 mg oral enteric coated tablet 325 mg, By Mouth, 2 times a day, # 60 tablet, Refills 5, Tot. Refills 5, Maintenance, 04/17/20 10:12:00 EST, [id number] 162.5, cm, 04/10/20 11:20:00 EST, Height, 103, kg, 04/10/20 11:20:00 EST, Dry Weight Start Date: 04/17/20 Status: Ordered Lasix 40 mg oral tablet 40 mg, 1, tablet, By Mouth, Daily, # 30 tablet, Refills 5, Tot. Refills 5, Maintenance, 03/11/20 13:11:00 EST, Route to Pharmacy Electronically, [facility]/pharmacy #[id number], 160, cm, 02/28/20 10:28:00 EST, Height, 104, kg, 01/19/20 3:57:00 EDT, Dry Weight Start Date: 03/11/20 Status: Ordered lisinopril 10 mg oral tablet 10 mg, 1, tablet, By Mouth, Daily, # 90 tablet, Refills 0, Tot. Refills 0, Maintenance, 02/26/20 14:41:00 EST, [id number] Partial fill upon patient request if the prescription is for a schedule II opioid drug... Start Date: 02/26/20 Status: Ordered morphine 15 mg/8 to 12 hr oral tablet, extended release 1 tablet = 15 mg, By Mouth, Every 8 hours, PRN Pain , Moderate, On substance agreement evaluated every 3 to 6 months, # 90 tablet, 0 Refills, Maintenance, 04/30/20 17:05:00 EST, [facility]/pharmacy #[id number], parital fill upon patient request, 162.5, cm, 04/10... Start Date: 04/30/20 Stop Date: 05/30/20 Status: Ordered morphine 30 mg/8 to 12 hr oral tablet, extended release 1 tablet = 30 mg, By Mouth, 3 times a day, OPIATE AGREEMENT evaluated every 3 to 6 months, # 84 tablet, 0 Refills, Maintenance, 04/30/20 17:05:00 EST, [facility]/pharmacy #2339, may fill for less, 162.5, cm, 04/10/20 11:20:00 EST, Height, 103, kg, 04/10/20... Start Date: 04/30/20 Stop Date: 05/28/20 Status: Ordered Multivitamin Daily, 0 Refills, Maintenance, 05/25/16 13:36:30 Start Date: 05/25/16 Status: Ordered Nicoderm C-Q 21 mg/24 hr transdermal film, extended release 1 patch, Topically, Daily, # 30 patch, 3 Refills, Maintenance, 08/25/19 16:23:00 EDT, Patch, [facility]/pharmacy #2339, 157, cm, 08/25/19 15:55:00 EDT, Height Start Date: 08/25/19 Status: Ordered [facility], See Instructions, # [...] 01/22/20 9:08:00 EST, Route to Pharmacy Electronically, [facility]/pharmacy #[id number], 160, cm, 01/22/20 7:53:00 EST, Height, 104, kg, 01/19/20 3:57:00 EDT, Dry Weight Start Date: 01/22/20 Stop Date: 07/20/20 Status: Ordered Ventolin HFA 108 mcg/inh inhalation aerosol with adapter 2 puffs, Inhalation, 4 times a day, PRN for wheezing, # 8 Gm, 5 Refills, Maintenance, 12/20/19 11:27:00 EDT, Aerosol, [facility]/pharmacy #2339, 156.6, cm, 10/23/19 15:34:00 EDT, Height Start Date: 12/20/19 Status: Ordered warfarin 5 mg oral tablet 0.5 tablet = 2.5 mg, By Mouth, Daily at bedtime, 5mg tablet on Fridays, # 30 tablet, 5 Refills, Maintenance, 02/26/20 12:12:00 EST, Tablet, [facility]/pharmacy #[id number], 160, cm, 01/26/20 9:40:00 [...]
--- OUTSIDE RECORDS SUMMARY | 2023-08-02 08:32 | XMS_ITS | Continuity of Care Document ---
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 Name Role Phone Michelle HICKEY, Jose Primary Care Physician Encounter [facility] Date(s): 01/28/21 - 03/05/[address] [address] Attending Physician: Chiki BENDER, Farheen Stanford Admitting Physician: Chiki BENDER, Farheen Stanford Referring Physician: Chiki BENDER, Farheen Stanford Allergies, Adverse Reactions, Alerts Substance Reaction Severity Status Nembutal Hyperventalating Active Cordran Tape BLISTERS Active Chantix Active traZODone daytime gogginess Active Immunizations Given and Recorded Vaccine Date Status Refusal Reason influenza virus vaccine, inactivated 1 12/27/20 Gi [...] 02/09/06 Gi [place] SARS-CoV-2 (COVID-19) mRNA-1273 vaccine 06/26/20 R ecorded SARS-CoV-2 (COVID-19) mRNA-1273 vaccine 05/28/20 R ecorded Influenza Virus Vaccine (oldterm) 01/15/20 Recorde d tetanus/diphtheria/pertussis, acel(Tdap) 10/20/19 Given FluLaval (oldterm) 5 03/08/12 Given Pneumococcal Poly (PPV23) (oldterm) 06/02/11 Given Tet/Diphth/Acel, Pertussis (oldterm) 6 02/25/09 Gi lincoln influ virus vac, H1N1, inactive(oldterm) 7 01/21/09 Given 1Result Comment: [facility]:[id number] 2Result Comment: [01/19/2018] [id number] 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 5Admin Note: [place] [facility] 6Admin Note: [employer],[place] 7Admin Note: Novaritis Medications ARIPiprazole 5 mg oral tablet 1, tablet, By Mouth, Daily, TO BE COMBINED WITH THE CITALOPRAM THERAPY, # 90 tablet, Refills 1, Route to Pharmacy Electronically, [id number], 162.5, cm, 12/27/20 14:39:00 EDT, Height, 103, kg, 04/10/20 11:20:00 EST, Dry Weight Start Date: 01/16/21 Status: Ordered Ativan 0.5 mg oral tablet 1 tablet = 0.5 mg, By Mouth, 3 times a day, PRN anxiety, # 90 tablet, 2 Refills, Maintenance, 02/24/21 14:29:00 EST, Tablet, [facility]/pharmacy #[id number], 162.5, cm, 01/29/21 12:38:00 EST, Height, 103, kg, 04/10/20 11:20:00 EST, Dry Weight Start Date: 02/24/21 Status: Ordered atorvastatin 40 mg oral tablet 1 tablet = 40 mg, By Mouth, Daily, # 90 tablet, 1 Refills, Maintenance, 11/16/19 10:37:00 EDT, Tablet, [facility]/pharmacy #2339, 156.6, cm, 10/23/19 15:34:00 EDT, Height, Dry Weight Start Date: 11/16/19 Status: Ordered citalopram 40 mg oral tablet 1 tablet, By Mouth, Daily, # 90 tablet, 1 Refills, Maintenance, 10/28/20 14:21:00 EDT, [facility]/pharmacy#2339, 162.5, cm, 05/15/20 10:27:00 EST, Height, 103, [...] months, # 28 tablet, 0 Refills, Maintenance, 02/24/21 14:29:00 EST, Tablet, [facility]/pharmacy #2339, parital fill upon patient request, 162.5, cm, 01/29/21 1... Start Date: 02/24/21 Status: Ordered Dulera 100 mcg-5 mcg/inh inhalation aerosol 2 puffs, Inhalation, 2 times a day, # 13 Unknown, 11 Refills, Maintenance, 07/22/20 7:52:00 EDT, [id number], 30, INHALE 2 PUFFS TWICE A DAY, 162.5, cm, 05/15/20 10:27:00 EST, Height, 103, kg, 04/10/20 11:20:00 EST, Dry Weight Start Date: 07/22/20 Status: Ordered ferrous sulfate 325 mg oral enteric coated tablet 1, tablet, By Mouth, 2 times a day, # 180 tablet, Refills 1, Tot. Refills 0, Maintenance, 10/17/20 7:27:00 EDT, Route to Pharmacy Electronically, [facility] 978[facility], 162.5, cm, 05/15/20 10:27:00 EST, Height, 103, kg, 04/10/20 11:20:00 EST, Dry Weight Start Date: 10/17/20 Status: Ordered lisinopril 10 mg oral tablet 1, tablet, By Mouth, Daily, # 90 tablet, Refills 3, Route to Pharmacy Electronically, [facility] 44715, 162.5, cm, 05/15/20 10:27:00 EST, Height, 103, kg, 04/10/20 11:20:00 EST, Dry Weight Start Date: 11/13/20 Status: Ordered Metoprolol Succinate ER 25 mg oral tablet, extended release 1 tablet, By Mouth, Daily, # 90 tablet, 1 Refills, Maintenance, 07/22/20 7:32:00 EDT, [facility], 162.5, cm, 05/15/20 10:27:00 EST, Height, 103, kg, 04/10/20 11:20:00 EST, Dry Weight Start Date: 07/22/20 Status: Ordered morphine 15 mg/8 to 12 hr oral tablet, extended release 1 tablet = 15 mg, By Mouth, Every 8 hours, PRN Pain , Moderate, On substance agreement evaluated every 3 to 6 months, # 90 tablet, 0 Refills, Maintenance, 02/24/21 14:29:00 EST, [facility]/pharmacy #[id number], parital fill upon patient request, 162.5, cm, 01/29... Start Date: 02/24/21 Stop Date: 03/26/21 Status: Ordered morphine 30 mg/8 to 12 hr oral tablet, extended release 1 tablet = 30 mg, By Mouth, 3 times a day, OPIATE AGREEMENT evaluated every 3 to 6 months, # 84 tablet, 0 Refills, Maintenance, 02/24/21 14:29:00 EST, [facility]acy [id number], may fill for less, 162.5, cm, 01/29/21 12:38:00 EST, Height, 103, kg, 04/10/20... Start Date: 02/24/21 Stop Date: 03/24/21 Status: Ordered Multivitamin Daily, 0 Refills, Maintenance, 05/25/16 13:36:30 Start Date: 05/25/16 Status: Ordered Nicoderm C-Q 21 mg/24 hr transdermal film, extended release 1 patch, Topically, Daily, # 30 patch, 3 Refills, Maintenance, 08/25/19 16:23:00 EDT, Patch, [facility]/pharmacy #2339, 157, cm, 08/25/19 15:55:00 EDT, Height Start Date: 08/25/19 Status: Ordered [facility] use with inhaler [facility] use with inhaler, See Instructions, [...] tablet = 10 mg, By Mouth, Daily, increased 01/01/21, # 90 tablet, 3 Refills, Maintenance, 10/17/20 12:35:00 EDT, [facility], 162.5, cm, 05/15/20 10:27:00 EST, Height, 103, kg, 04/10/20 11:20:00 EST, Dry Weight Start Date: 10/17/20 Status: Ordered Ventolin HFA 108 mcg/inh inhalation aerosol with adapter 2 puffs, Inhalation, 4 times a day, PRN NEEDED FOR WHEEZING, # 3 each, 1 Refills, Maintenance, 12/02/20 8:23:00 EDT, [facility]/pharmacy #2339, 162.5, cm, 05/15/20 10:27:00 EST, Height, 103, kg, 04/10/2110:20:00 EST, Dry Weight Start Date: 12/02/20 Stop Date: 05/31/21 Status: Ordered warfarin 5 mg oral tablet 1 tablet, By Mouth, Daily, # 90 tablet, 1 Refills, [facility], 162.5, cm, 01/29/21 12:38:00 EST, Height, 103, kg, 04/10/20 11:20:00 EST, Dry Weight Start Date: 03/03/21 Status: Ordered Problem List Condition Effective Dates Status Health Status Inform ant Asthma(Confirmed) Active Atrial fibrillation(Confirmed) Active Back pain(Confirmed) 1 Active Major depression, chronic(Confirmed) Active CHF (congestive heart failur e) ([id number]% on echo 2019)(Confirmed) Active Continuous opioid dependence(Confirmed) [...]
--- OUTSIDE RECORDS SUMMARY | 2023-08-02 08:32 | XMS_ITS | Continuity of Care Document ---
Author Organization [facility] Address [address] [place] [id number]- Care Team Providers Care Gallery Host Name Role Phone Jose Martinez MD Primary Care Physician Encounter [facility] [place] [facility] Date(s): 05/18/23 - 05/25/23 [facility] [address] [place] [id number]- Encounter Diagnosis Atrial fibrillation(Discharge Diagnosis) - 05/18/23 CHF (congestive heart failure) (AHTK22-50% on echo 2019)(Discharge Diagnosis) - 05/18/23 Cardiomyopathy(Discharge Diagnosis) - 05/18/23 Coronary artery disease(Discharge Diagnosis) - 05/18/23 Hypertension(Discharge Diagnosis) - 05/18/23 Hyperlipidemia(Discharge Diagnosis) - 05/18/23 PRINCESS - Obstructive sleep apnea(Discharge Diagnosis) - 05/18/23 Attending Physician: Ruth Kiser MD Referring Physician: Jose Martinez MD Allergies, Adverse Reactions, Alerts Substance Reaction Severity Status Nembutal Hyperventalating Active Cordran Tape BLISTERS Active Chantix Active traZODone daytime gogginess Active Immunizations Given and Recorded Vaccine Date Status Refusal Reason pneumococcal 20-valent conjugate vaccine 1 05/21/23 Given influenza virus vaccine, inactivated 01/19/23 Vladimir rded influenza virus vaccine, inactivated 02/04/22 Vladimir rded influenza virus vaccine, inactivated 2 12/27/20 Gi lincoln influenza virus vaccine, inactivated 01/13/19 Give n influenza virus vaccine, inactivated 3 01/19/18 Gi lincoln influenza virus vaccine, inactivated 01/22/17 Give n influenza virus vaccine, inactivated 03/06/16 Give n influenza virus vaccine, inactivated 12/28/12 Give n influenza virus vaccine, inactivated 4 01/03/08 Gi lincoln influenza virus vaccine, inactivated 5 02/09/06 Gi lincoln tetanus-diphtheria toxoids (Td) 02/05/22 Given zoster vaccine, inactivated 02/04/22 Recorded SARS-CoV-2 (COVID-19) mRNA-1273 vaccine 03/31/21 R ecorded SARS-CoV-2 (COVID-19) mRNA-1273 vaccine 06/26/20 R ecorded SARS-CoV-2 (COVID-19) mRNA-1273 vaccine 05/28/20 R ecorded Influenza Virus Vaccine (oldterm) 01/15/20 Recorde d tetanus/diphtheria/pertussis, acel(Tdap) 10/20/19 Given FluLaval (oldterm) 6 03/08/12 Given Pneumococcal Poly (PPV23) (oldterm) 06/02/11 Given Tet/Diphth/Acel, Pertussis (oldterm) 7 02/25/09 Gi lincoln influ virus vac, H1N1, inactive(oldterm) 8 01/21/09 Given 1Result Comment: [facility]:[id number] 2Result Comment: [facility]:[id number] 3Result Comment: [01/19/2018] [id number] 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 5Admin Note: 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 6Admin Note: [employer] [facility] 7Admin Note: [employer] 8Admin Note: Novaritis Medications Albuterol (Eqv-ProAir HFA) 2 puffs, Inhalation, Every 6 hours, 0 Refills, Maintenance, 10/13/21 13:54:00 EDT, Partial fill upon patient request if the prescription is for a schedule II opioid drug. Start Date: 10/13/21 Status: Ordered amLODIPine 10 mg oral tablet 1 tablet, By Mouth, Daily, # 90 tablet, 1 Refills, Maintenance, 01/25/23 22:10:00 EST, [id number], 157.48, cm, 11/17/22 16:49:00 EDT, Height, 111, kg, 06/10/21 15:06:00 EDT, Dry Weight Start Date: 01/25/23 Status: Ordered ARIPiprazole 5 mg oral tablet 1, tablet, By Mouth, Daily, TO BE COMBINED WITH THE CITALOPRAM THERAPY., # 90 tablet, Refills 1, Tot. Refills 1, Maintenance, 04/01/23 21:26:00 EST, Route to Pharmacy Electronically, [facility]/pharmacy #[id number], 157.48, cm, 11/17/22 16:49:00 EDT, Height, 111,... Start Date: 04/01/23 Status: Ordered aspirin 81 mg oral delayed release tablet 81 mg, By Mouth, Daily, # 30 tablet, Refills 11, Tot. Refills 11, Maintenance, 06/12/21 9:27:00 EDT, Route to Pharmacy Electronically, [facility], Partial fill upon patient request if the prescription is for a schedule II opioid drug., 1... Start Date: 06/12/21 Stop Date: 06/07/22 Status: Ordered Ativan 0.5 mg oral tablet 1 tablet = 0.5 mg, By Mouth, Daily at bedtime, PRN as needed for anxiety, # 30 tablet, 5 Refills, Maintenance, 05/25/23 10:30:00 EST, Tablet, [facility]/pharmacy #[id number], Partial fill upon patient request if the prescription is for a schedule II opioid drug.,... Start Date: 05/25/23 Status: Ordered atorvastatin 80 mg oral tablet 1 tablet, By Mouth, Daily at bedtime, # 90 tablet, 1 Refills, Maintenance, 10/12/22 12:22:00 EDT, [id number], 157.48, cm, 08/28/22 9:39:00 EDT, Height, 111, kg, 06/10/21 15:06:00 EDT, Dry Weight Start Date: 10/12/22 Status: Ordered ATORVASTATIN 80 MG TABLET ATORVASTATIN 80 MG TABLET, 1, tablet, By Mouth, Daily at bedtime, # 90 tablet, 1 Refills, Maintenance, 03/30/23 11:11:00 EST, 157.48, cm, 11/17/22 16:49:00 EDT, Height, 111, kg, 06/10/21 15:06:00 EDT, Dry Weight Start Date: 03/30/23 Status: Ordered citalopram 40 mg oral tablet 1 tablet, By Mouth, Daily, # 90 tablet, 1 Refills, Maintenance, 04/28/23 7:10:00 EST, [facility], 157.48, cm, 04/19/23 8:28:00 EST, Height, 111, kg, 06/10/21 15:06:00 EDT, Dry Weight Start Date: 04/28/23 Status: Ordered CPAP Machine See Instructions, # 1 each, Maintenance, AutoCPAP 6-12 cm H20, use Daily when sleeping 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, 12/22/21 11:06:00 EDT, Supply Start Date: 12/22/21 Status: Ordered Daily Erica oral tablet See Instructions, TAKE 1 TABLET BY MOUTH EVERY DAY, # 90 tablet, 1 Refills, [id number], 90, TAKE 1 TABLET BY MOUTH EVERY [...] Inhalation, 2 times a day, # 13 each, 11 Refills, Maintenance, 07/08/22 11:55:00 EDT, [facility], 30, INHALE 2 PUFFS TWICE A DAY, 157.48, cm, 05/18/22 9:48:00 EST, Height, 111, kg, 06/10/21 15:06:00 EDT, Dry Weight Start Date: 07/08/22 Status: Ordered Entresto 24 mg-26 mg oral tablet 1 tablet, By Mouth, 2 times a day, # 60 tablet, 11 Refills, Maintenance, 09/21/22 14:36:00 EDT, [facility], 30, TAKE 1 TABLET BY MOUTH TWICE A DAY, 157.48, cm, 08/28/22 9:39:00 EDT, Height, 111,kg, 06/10/21 15:06:00 EDT, Dry Weight Start Date: 09/21/22 Status: Ordered Entresto 24 mg-26 mg oral tablet 1 tablet, By Mouth, 2 times a day, # 60 tablet, 11 Refills, [facility], 30, TAKE 1 TABLET BY MOUTH TWICE A DAY, 157.48, cm, 08/12/21 10:44:00 EDT, Height, 111, kg, 06/10/21 15:06:00 EDT, Dry Weight Start Date: 09/18/21 Status: Ordered ferrous sulfate 325 mg oral enteric coated tablet 1, tablet, By Mouth, 2 times a day, # 180 tablet, Refills 1, Maintenance, 07/26/22 7:26:00 EDT, Route to Pharmacy Electronically, [facility], 157.48, cm, 05/18/22 9:48:00 EST, Height, 111, kg, 06/10/21 15:06:00 EDT, Dry Weight Start Date: 07/26/22 Status: Ordered furosemide 20 mg oral tablet 1, tablet, By Mouth, Daily, # 90 tablet, Refills 1, Maintenance, 12/28/22 9:01:00 EDT, Route to Pharmacy Electronically, [facility], 157.48, cm, 11/17/22 16:49:00 EDT, Height, 111, kg, 06/10/21 15:06:00 EDT, Dry Weight Start Date: 12/28/22 Status: Ordered furosemide 20 mg oral tablet 1, tablet, By Mouth, Daily, # 90 tablet, Refills 1, Maintenance, 07/02/22 8:00:00 EDT, Route to Pharmacy Electronically, [facility], 157.48, cm, 05/18/22 9:48:00 EST, Height, 111, kg, 06/10/21 15:06:00 EDT, Dry Weight Start Date: 07/02/22 Status: Ordered furosemide 20 mg oral tablet 1, tablet, By Mouth, Daily, # 90 tablet, Refills 1, Maintenance, 04/26/23 12:41:00 EST, Route to Pharmacy Electronically, [facility], 157.48, cm, 04/19/23 8:28:00 EST, Height, 111, kg, 06/10/21 15:06:00 EDT, Dry Weight Start Date: 04/26/23 Status: Ordered furosemide 20 mg oral tablet 1, tablet, By Mouth, Daily, # 30 tablet, Refills 5, Maintenance, 12/30/21 15:04:00 EDT, Route to Pharmacy Electronically, [facility], 157.48, cm, 11/04/21 11:33:00 EDT, Height, 111, kg, 06/10/2214:06:00 EDT, Dry Weight Start Date: 12/30/21 Status: Ordered Metoprolol Succinate ER 100 mg oral tablet, extended release 1.5 tablet = 150 mg, By Mouth, Daily, # 135 tablet, 3 Refills, Maintenance, 10/12/22 15:26:00 EDT, XL Tablet, [facility]/pharmacy #[id number], Partial fill upon patient request if the prescription is for a schedule II opioid drug., 157.48, cm, 08/28/22 9:39:00 EDT... Start Date: 10/12/22 Stop Date: 10/07/23 Status: Ordered rOPINIRole 0.25 mg oral tablet See Instructions, TAJE 1 TAB AT BEDTIME FOR 1 WEEK THEN INCREASE TO 2 TABS AT NIGHT FOR 1 WEEK THEN3 TABS EVERY NIGHT, # 249 tablet, 0 Refills, Maintenance, 04/28/23 7:10:00 EST, [facility], 157.48, cm, 04/19/23 8:28:00 EST, Height, 111, kg, ... Start Date: 04/28/23 Status: Ordered spironolactone 25 mg oral tablet 0.5, tablet, By Mouth, Daily, # 45 tablet, Refills 1, Maintenance, 05/21/22 10:15:00 EST, Route to Pharmacy Electronically, [facility], 157.48, cm, 05/18/22 9:48:00 EST, Height, 111, kg, 06/10/21 15:06:00 EDT, Dry Weight Start Date: 05/21/22 Status: Ordered warfarin 5 mg oral tablet See Instructions, Take 1/2 to 1 tablet By Mouth Daily as directed by coumadin clinic, # 90 tablet, 2 Refills, Maintenance, 05/12/22 13:52:00 EST, Tablet, [facility]/pharmacy #[id number], Partial fill upon patientrequest if the prescription is for a schedule II... Start Date: 05/12/22 Status: Ordered Wegovy (0.25 mg dose) subcutaneous solution = 0.25 mg, Subcutaneous Injection, Every week, for 4 week(s), in the abdomen, thigh, or upper arm, # 2 mL, 1 Refills, Acute 06/14/23 8:54:00 EDT, 04/19/23 8:54:00 EST, Solution, [id number], Partial fill upon patient request if the prescription... Start Date: 04/19/23 Stop Date: 06/14/23 Status: Ordered Problem List Condition Confirmation Course Effective Dates Status H ealth Status Informant Asthma Confirmed Active Atrial fibrillation Confirmed Active Back pain 1 Confirmed Active Cardiomyopathy Confirmed Active Major depression, chronic Confirmed Active CHF (congestive heart failure) (EBYN61-63% on echo 2019) Confirmed Active Coronary artery disease Confirmed Active [...] 2Right 3Right 11/2008 4advanced right hip OA Diagnosis Diagnosis Type Effective Dates Health Status Clinical Service Informant Atrial fibrillation Discharge Diagnosis 05/18/23 CHF (congestive heart failure) (LKKV94-46% on echo 2019) Discharge Diagnosis 05/18/23 Cardiomyopathy Discharge Diagnosis 05/18/23 Coronary artery disease Discharge Diagnosis 05/18/23 Hypertension Discharge Diagnosis 05/18/23 Hyperlipidemia Discharge Diagnosis 05/18/23 PRINCESS - Obstructive sleep apnea Discharge Diagnosis 05/18/23 Vital Signs Most recent to oldest [Reference Range]: 1 2 3 Height 157.48 cm (05/20/23 10:26 AM) 157.48 cm (05/18/23 4:17 PM) 157.48 cm (05/18/23 4:10 PM) Weight 135.6 kg (05/20/23 10:26 AM) 135.6 kg (05/18/23 4:10 PM) Oxygen Saturation [94-100 %] 97 % (05/18/23 4:10 PM) Pulse Rate [55-90 bpm] 73 bpm (05/18/23 4:17 PM) 72 bpm (05/18/23 4:10 PM) Body Mass Index [18.5-24.99 kg/m2] 54.68 kg/m2 *>HHI* (05/18/23 4:10 PM) Blood Pressure [90-138/55-84 mm Hg] 112/76mm Hg (05/18/23 4:17 PM) 145/85mm Hg *H* (05/18/23 4:10 PM) Mode of Delivery (Oxygen) Room air (05/18/23 4:10 PM) Blood pressure sites Arm, right (05/18/23 4:17 PM) Arm, left (05/18/23 4:10 PM) Weight Obtained Via Bed scale (05/18/23 4:10 PM) Social History Social History Type Response Smoking Status Former smoker, quit more than 30 days ago; Other: quit June 2021; entered on: 05/18/22 Sex Female Cardiology Outpatient Note * Margi HICKEY, Ruth Campbell: PERFORM Event Display: Cardiology Note Office Authored Date: [id number] Patient: ??ELYSSA ALFREDO ? Age:??67 Years?Sex:??Female?:??1955?? Patient Hx Provider Clinical Summary Past visit: This is a 65-year-old female here to establish care with me.?? She previously had seen Shaneka Santamaria in cardiology clinic??about a year ago.?? I do not??see any recent visits,??she is described as having a cardiomyopathy with an EF of 35 to 40%.?? She had an admission??at the time of her diagnosis of cardiomyopathy for??shortness of breath??and fatigue and was noted to be severely anemic.?Her??BNP was elevated at that time??and she had been having shortness of breath and lower extremity edema. ??As part of that evaluation she had her echocardiogram showing depressed LV function.?? She had negative cardiac enzymes per report. she??was transfused with resolution of her symptoms and at least at the time of her last cardiology visit??had been feeling well.?? The patient tellsme about a month subsequently she started to have worsening fatigue again??and shortness of breath.?? She chronically sleeps sitting up, this is not changed.?? She feels her left leg gets swollen though this is mostly by the end of the day.?? That is intermittent,??she has no edema currently.?? Shedenies any palpitations,??presyncope or syncope.?? She had been recommended??repeat echocardiogram??though that was not done.?? She has not had an ischemic evaluation.?? She describes a strong familyhistory of coronary artery disease.?? Prior notes suggest her??depressed LV function was in the setting of atrial fibrillation,??per chart review she had a Holter monitor in 2019 which showed persistent??atrial fibrillation.?? Her overall heart rate??was is controlled.?? She appears to be in permanent atrial fibrillation.?? She is known to have a history of asthma, morbid obesity status post lap band surgery in 2005, hypertension hyperlipidemia and chronic??back pain??as well as PRINCESS??and tobacco use. ??She stopped smoking and has gained 15 pounds. ??Since then she feels more out of breath. ??She isonly having dyspnea on exertion, continuing with cardiac rehab. ??She denies PND, orthopnea, edema.??She has been??eating??a lot more and constantly snacking since stopping tobacco. ??She describes belly weight gain.?No chest pain. ??Prior to our last visit,??she was readmitted to [facility] and was noted to have orthostasis??about 2 weeks ago. ??Her amlodipine was stopped. ??Prior to that??shehad admission in early May??with??acute CHF exacerbation??and was hypertensive at that time,??NSTEMI ultimately leading to cardiac catheterization??showing 99% lesions in??RPL/rPDA, medical management. ??Amlodipine had been started??with question of dissection versus vasospasm. ??EDP was normal at that time,??she was recommended better blood pressure control given hypertension.?Her??prior complaints have resolved??with medical management.??Her EF which had improved is now 30 to 40%.?? She denies palpitations, chest pain,??presyncope or syncope.?? She has not had recurrence of syncope??ororthostatic symptoms. ?Current visit: She has no cardiovascular complaints.?? She??has been feeling well. ??She??attended cardiac rehab.?? I switch her to Entresto, she tolerated this though started to have elevated??potassium levels???repeat chemistry showed this at??improved.?? I held off on adding Aldactone for thisreason.?? She is using Lasix as needed now.?TTE on 05/28/2021 pertinent for LVEF 30 to 40%, akinetic apex, no thrombus noted. ???Holter on 10/12/2018 pertinent for A. fib with no high degree AV block, no prolonged pauses??present. ???LHC on 05/27/2021 pertinent for distal LAD 85% stenosis, second acute marginal 99% stenosis of mid section, RPL 2, 99% proximal section, proximal RPDA 99%, findings are thought be secondary to coronary spasm/SCAD, LVEDP 10-13. Indication for Consult 6M FUV History of Present Illness/Interval History She had been feeling well at her last visit, had stopped smoking and gained weight. ??She was not having heart failure symptoms at that time. ??Since then she is continue to gain weight. ??She now isfeeling out of breath with minimal activities. ??No clear PND orthopnea. ??Is wheezing and using MDI more. ??Feels like she is coming down with something today but otherwise has not had fevers or??other symptoms.?She was prescribed Wegovy for weight loss however they could not??find this??at a drugstore??locally. Physical Exam Vitals & Measurements HR:??73??(Peripheral)?? BP:??112/76?? SpO2:??97%?? HT:??157.48??cm?? WT:??135.6??kg?? BMI:??54.68?? Weight lb/oz: 298 lb 15 oz HEENT: EOMI morbidly??obese Pulm: exp wheezing, no crackles Cardiac: irreg??no m/r/g GI: soft +BS EXT:??1- edema Neuro:??grossly nonfocal Skin:??warm and dry Psych: alert and coop Assessment/Plan 1.??Atrial fibrillation Ordered: B Type Natriuretic Peptide Basic Metabolic Panel Echo Complete ?? 2.??CHF (congestive heart failure) (GCOZ59-76% on echo 2019) Ordered: B Type Natriuretic Peptide Basic Metabolic Panel Echo Complete ?? 3.??Cardiomyopathy Ordered: B Type Natriuretic Peptide Basic Metabolic Panel Echo Complete ?? 4.??Coronary artery disease Ordered: B Type Natriuretic Peptide Basic Metabolic Panel Echo Complete ?? 5.??Hypertension Ordered: B Type Natriuretic Peptide Basic Metabolic Panel Echo Complete ?? 6.??Hyperlipidemia ?? 7.??PRINCESS - Obstructive sleep apnea ?? This is a 67-year-old female for follow up.??She is described as having a cardiomyopathy with an EFof 35 to 40%.?? She had an admission??at the time of her diagnosis of cardiomyopathy for??shortnessof breath??and fatigue and was noted to be severely anemic.?? As part of that evaluation she had her echocardiogram showing depressed LV function.??Her??repeat cbc showed Hct 33. ??Her torsemide dosewas increased from 5 to 10 mg, her NT proBNP has been anywhere from 700-1800.?Subsequent to our last telehealth visit she was admitted??early May to [facility] with??acute CHF and an NSTEMI, her cardiac catheterization showed??99% lesions in her RPL and RPDA, these were medically managed.?Her EDP at that time??was normal after diuresis. ??She was hypertensive.?Interestingly??amlodipine was increased due to concern for??vasospasm as well as hypertension???she then had admission 2 weeks later??with orthostasis and this medication was discontinued. ??Her EF was 30 to 40%.??Coronary anatomy findings are at a proportion to her cardiomyopathy??which I had presumed had a nonischemic component. ??She was post to have a repeat echocardiogram which was not done.?Had beenusing Lasix as needed,??stop smoking cigarettes.?Unfortunately as a result she has gained significant weight -at our last visit??she was not having??shortness of breath??or other complaints.?? Shehas gained??another??3 kg,??now is having dyspnea and I suspect at least some element of acute heart failure exacerbation.?I do not think the majority of her weight is??secondary to volume however.?Unfortunately she could not get??Wegovy at local??pharmacies??for medical weight loss.?I am h aving her get labs today, Chem-7 and proBNP.?I suspect she will need an increase in Lasix, Aldactone??along with??med management.?I am reordering an echocardiogram again.?At this point I am referring her to advanced heart failure as well.??In terms of her atrial fibrillation??looking back through the chart she had a Holter monitor in 2019 which showed??persistent atrial fibrillation. ??Roge not think this is a contributor to her volume overload or her cardiomyopathy based on??those findings and??EKGs, that being said??some recent trial data does suggest worse outcomes??for HFrEF??with persisting atrial fibrillation.?? Will have to see??atrial size on repeat echocardiogram though I am not optimistic at this point that she would maintain sinus rhythm.?? Her presentation??to [facility] when she was diagnosed with a cardiomyopathy??notable for rate controlled A. fib. She has no significant valvular disease.?Morbid obesity, sleep apnea??along with other medical pro blems may be contributors for her symptoms as well as cardiomyopathy.?She denies any palpitations,??presyncope or syncope.?She is on Coumadin -she does not recall??being offered Eliquis, she does not have a contraindication to use and??have asked her to??consider DOAC.??She is on [id number] mg p.o. daily which she should continue.?? Allergies Chantix Cordran Tape??(BLISTERS) Nembutal??(Hyperventalating) traZODone??(daytime gogginess) Home Medications Albuterol (Eqv-ProAir HFA), 2 puffs, Inhalation, Every 6 hours amLODIPine 10 mg oral tablet, 1 tablet, By Mouth, Daily ARIPiprazole 5 mg oral tablet, 1 tablet, By Mouth, Daily, 1 refills aspirin 81 mg oral delayed release tablet, 81 mg, By Mouth, Daily, 11 refills Ativan 0.5 mg oral tablet, 0.5 mg= 1 tablet, By Mouth, Daily at bedtime, PRN, 5 refills atorvastatin 80 mg oral tablet, 1 tablet, By Mouth, Daily at bedtime ATORVASTATIN 80 MG TABLET, 1 tablet, By Mouth, Daily at bedtime citalopram 40 mg oral tablet, 1 tablet, By Mouth, Daily CPAP Machine, See Instructions Daily Erica oral tablet, See Instructions DAILY ERICA TABLET, 1 tablet, By Mouth, Daily Dulera 100 mcg-5 mcg/inh inhalation aerosol, 2 puffs, Inhalation, 2 times a day Entresto 24 mg-26 mg oral tablet, 1 tablet, By Mouth, 2 times a day Entresto 24 mg-26 mg oral tablet, 1 tablet, By Mouth, 2 times a day ferrous sulfate 325 mg oral enteric coated tablet, 1 tablet, By Mouth, 2 times a day furosemide 20 mg oral tablet, 1 tablet, By Mouth, Daily furosemide 20 mg oral tablet, 1 tablet, By Mouth, Daily furosemide 20 mg oral tablet, 1 tablet, By Mouth, Daily furosemide 20 mg oral tablet, 1 tablet, By Mouth, Daily Metoprolol Succinate ER 100 mg oral tablet, extended release, 150 mg= 1.5 tablet, By Mouth, Daily, 3 refills rOPINIRole 0.25 mg oral tablet, See Instructions spironolactone 25 mg oral tablet, 0.5 tablet, By Mouth, Daily warfarin 5 mg oral tablet, See Instructions, 2 refills Wegovy (0.25 mg dose) subcutaneous solution, 0.25 mg, Subcutaneous Injection, Every week, 1 refills Lab Results Cardiology Labs INR:??3??High (05/10/23) Protime (PT):??28.9 seconds??High (05/10/23) Sodium: 141 mmol/L (11/20/22) Potassium: 4.8 mmol/L (11/20/22) Chloride: 103 mmol/L (11/20/22) Bicarbonate Level: 28 mmol/L (11/20/22) Glucose Level: 87 mg/dL (11/20/22) BUN: 13 mg/dL (11/20/22) Creatinine-Blood: 0.8 mg/dL (11/20/22) Calcium: 9.1 mg/dL (11/20/22) Nt-Probnp:??854 pg/mL??High (11/20/22) Diagnostic Impression ECG ECG 12-Lead ?? 15:35:13 Ventricular Rate: 79 BPM Atrial Rate: 326 BPM QRS Duration: 84 ms Q-T Interval: 382 ms QTC Calculation(Bazett): 438 ms R [place]: 14 degrees T [place]: -23 degrees Atrial fibrillation Low voltage QRS Nonspecific T wave abnormality Abnormal ECG When compared with ECG of 24-OCT-2021 15:22, Previous ECG has undetermined rhythm, needs review Nonspecific T wave abnormality has replaced inverted T waves in Anterior leads Confirmed by DIEGO BISHOP MD ([id number]) on 11/20/2022 8:38:57 AM ?? Mclaughlin: DIEGO BISHOP MD ?? Signed By: Diego Bishop MD ?? ECG 12-Lead ?? 15:35:13 Please click on pdf link to open report ?? Signed By: Diego Bishop MD Echo Echocardiogram - Complete ?? 13:11:25 Summary The left ventricle is mildly dilated. Left ventricular wall thickness is normal. The LV systolic function is moderately reduced . The left ventricular ejection fraction is 30-40 %. The apex is akinetic . Cannot rule out inferolateral wall hypokinesis . No obvious LV mural thrombus noted on the available views. The left atrium is poorly visualized. The left atrium is dilated. The right ventricle is poorly visualized. The right atrium is poorly visualized. The right atrium is dilated. The pulmonary artery systolic pressure estimation is 37 mmHg. ?? Comparison Comparison is made to the study of April 12, 2021. Limited study making direct comparison difficult. ?? Signature ?? Signed By: Reginald Herring MD Problem List/Past Medical History Ongoing Asthma Atrial fibrillation Back pain Cardiomyopathy CHF (congestive heart failure) (YBRT61-57% on echo 2019) Cholecystectomy Continuous opioid dependence Coronary artery disease Generalized anxiety disorder Hip pain Hip replacement Hyperlipidemia Hypertension Major depression, chronic OA - Osteoarthritis Obesity (BMI 30-39.9) Opiate analgesic contract exists PRINCESS - Obstructive sleep apnea Patient has healthcare proxy - 10/02/11 Severe obesity Tobacco dependence Procedure/Surgical History Ganglion cyst of right dorsal wrist Tubal ligation Hip replacement Gastric bypass Social History Alcohol Use: Never. Employment/School Status: Disabled. Exercise Regular exercise: Yes. Exercise frequency: 3-4 times/week. Exercise type: Walking. Home/Environment Living situation: Home/Independent. Lives with: Siblings. Nutrition/Health Diet: Regular. Sexual Sexually involved in last 6 months: No. Substance Abuse Use: Never. Tobacco Use: Former smoker, quit more than 30 days ago. Other: quit June 2021. Family History Mother (): CAD - Coronary artery disease; Congestive heart failure; Diabetes mellitus type II; Hypertension Mat. Grandmother: CAD - Coronary artery disease; Hypertension; Stroke Mat. Grandfather: Cancer of colon Daughter: Congestive heart failure Note * Chika Murrell: PERFORM, SIGN, VERIFY Event Display: Patient Education/Instruction Authored Date: [id number] [facility] *[facility] Clinical Summary Name ELYSSA ALFREDO Age 67 Years 1955 PCP [id number] Visit Date 05/18/2023 16:08:00 Additional Instructions: Scheduled Appointments?? Future Appointments ?*[facility] ?[address]??[place],??[place],??[address] ?Phone:??--?Fax:??-- ?Appt. Date:??05/21/2023?12:40 PM ?Scheduled Provider:??Jose Martinez MD ?*[facility] ?[address]??[place],??[place],??[address] ?Phone:??--?Fax:??-- ?Appt. Date:??06/22/2023?8:30 AM ?Scheduled Provider:??Farheen Torres NP Follow-Up Instructions ?? 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 Discuss any questions related to medications with your provider. Medications to Continue with No Changes These medications were not printed or sent to your pharmacy Albuterol (Albuterol (Eqv-ProAir HFA)) 2 puff(s) Inhalation every 6 hours. Next Dose: Amlodipine (amLODIPine 10 mg oral tablet) 1 tab(s) Oral Daily. Refills: 1. Next Dose: Aripiprazole (ARIPiprazole 5 mg oral tablet) 1 tab(s) Oral Daily. TO BE COMBINED WITH THE CITALOPRAM THERAPY.. Refills: 1. Next Dose: Aspirin (aspirin 81 mg oral delayed release tablet) 81 Milligram Oral Daily for 30 Days. Refills: 11. Next Dose: Atorvastatin (atorvastatin 80 mg oral tablet) 1 tab(s) Oral Daily at Bedtime. Refills: 1. Next Dose: Citalopram (citalopram 40 mg oral tablet) 1 tab(s) Oral Daily. Refills: 1. 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 Refills: 0. Next Dose: Ferrous Sulfate (ferrous sulfate 325 mg oral enteric coated tablet) 1 tab(s) Oral twice a day. Refills: 1. Next Dose: formoterol-mometasone (Dulera 100 mcg-5 mcg/inh inhalation aerosol) 2 puff(s) Inhalation twice a day. Refills: 11. Next Dose: Furosemide (furosemide 20 mg oral tablet) 1 tab(s) Oral Daily. Refills: 1. Next Dose: Furosemide (furosemide 20 mg oral tablet) 1 tab(s) Oral Daily. Refills: 1. Next Dose: Furosemide (furosemide 20 mg oral tablet) 1 tab(s) Oral Daily. Refills: 5. Next Dose: Furosemide (furosemide 20 mg oral tablet) 1 tab(s) Oral Daily. Refills: 1. Next Dose: Lorazepam (Ativan 0.5 mg oral tablet) 1 tab(s) Oral Daily at Bedtime as needed as needed for anxiety. Refills: 5. Next Dose: Metoprolol (Metoprolol Succinate ER 100 mg oral tablet, extended release) 1.5 tab(s) Oral Daily for90 Days. Refills: 3. Next Dose: Miscellaneous Rx (ATORVASTATIN 80 MG TABLET) 1 tab(s) Oral Daily at Bedtime. Refills: 1. Next Dose: Miscellaneous Rx (DAILY ERICA TABLET) 1 tab(s) Oral Daily. Refills: 3. Next Dose: Multivitamin (Daily Erica oral tablet) TAKE 1 TABLET BY MOUTH EVERY DAY. Refills: 1. Next Dose: Ropinirole (rOPINIRole 0.25 mg oral tablet) TAJE 1 TAB AT BEDTIME FOR 1 WEEK THEN INCREASE TO 2 TABS AT NIGHT FOR 1 WEEK THEN 3 TABS EVERY NIGHT. Refills: 0. Next Dose: sacubitril-valsartan (Entresto 24 mg-26 mg oral tablet) 1 tab(s) Oral twice a day. Refills: 11. Next Dose: sacubitril-valsartan (Entresto 24 mg-26 mg oral tablet) 1 tab(s) Oral twice a day. Refills: 11. Next Dose: semaglutide (Wegovy (0.25 mg dose) subcutaneous solution) 0.25 Milligram Subcutaneous Injection every week for 4 week(s). in the abdomen, thigh, or upper arm. Refills: 1. Next Dose: Spironolactone (spironolactone 25 mg oral tablet) 0.5 tab(s) Oral Daily. Refills: 1. Next Dose: Warfarin (warfarin 5 mg oral tablet) Take 1/2 to 1 tablet By Mouth Daily as directed by coumadin clinic. Refills: 2. Next Dose: Allergy Info:?? traZODone; Chantix; Cordran Tape; Nembutal Medications Given This Visit Future Orders ?No future orders Vital Signs Height 157.48 cm Weight 135.6 kg BMI 54.68 kg/m2 Blood Pressure 112 mm Hg/76 mm Hg Temperature Pulse Rate 73 bpm Respiratory Rate 02 Sat Mode of Delivery 97 %/Room air You can now view a summary of your hospital visit from the comfort of your home through a free online portal called Qalendra. Qalendra is a website that allows you to securely view your medical information including discharge summary, medications and follow-up visits. ??You can alsosend a secure electronic message to your doctor???s office to request appointments, renew medications or just ask a question. You can enroll at [email or web address] or register during your next office visit. Disclaimer:?? The information provided is of a general nature and is intended to be used in conjunction with the recommendations and advice of your health care practitioner. ??Every effort has been made to ensure that the information provided is accurate and complete at the time it is provided to you however, as your needs change, or, as new ??information becomes available, different or additional instructions may be required. If you have questions, please consult with your primary care provider or pharmacist, as appropriate. ??This information is not intended to serve as substitution for assessment and evaluation by a qualified health care provider. If you do not have a primary care provider, you may find a [facility] provider by calling [facility] at [phone]. [facility], in keeping with [facility] guidance, no longer requires face masks for staff, patientsor visitors in most situations. Similar to time spent indoors at other locations, there is the chance that you were exposed to respiratory viruses during your time with us (such as flu or COVID-19).? If you develop symptoms concerning for a viral respiratory infection, please seek testing (and treatment if indicated) from your medical provider or home test kit. For information about the plan of care including goals and instructions for your diagnosis, please see the patient education orders section of this document. Patient Education Materials?? The content of this educational material or handout may have been modified, supplemented, or adapted from its original content and format to support your individualized medical care. Patient Care team information Care Team Personnel Name: Penfield , Radha Position: [facility] RN Supv Member Role: Primary Care Nurse Name: Nichole Coates RN Position: [facility] SN RN Member Role: Primary Care Nurse Name: Ksenia Herzog RN Position: S RN Member Role: Primary Care Nurse Name: Leatha Walsh RN Position: [facility] SN RN Member Role: Primary Care Nurse Name: Milagro Sims RN Position: [facility] ANGEL Nurse Member Role: Primary Care Nurse Name: Jo Ann Stubbs PharmD Position: [facility] Associate Professional Member Role: [employer] Consult[employer] Provider Address: Address: [address] [place] [address]- Name: Anne Gonzalez RN Position: S RN Member Role: Primary Care Nurse Name: Mckayla Wilcox RN Position: [facility] SN RN Member Role: Primary Care Nurse Name: Simin Chen RN Position: [facility] RN Member Role: Primary Care Nurse Name: Jose Martinez MD Position: [facility] Physician - Primary Care Member Role: PCP Address: Address: [address] [place] [address]- Name: Aleks Merchant RN Position: [facility] RN Member Role: Primary Care Nurse Name: Genet Bowman RN Position: [facility] SN RN Member Role: Primary Care Nurse Name: Ilana Burns RN Position: [facility] RN Member Role: Primary Care Nurse Care Team Related Persons Name: TUTU ROWLAND Address: home [address] [place] [id number] Name: JANET CONNOR Address: home [address] [place] [id number]
--- OUTSIDE RECORDS SUMMARY | 2023-08-02 08:32 | XMS_ITS | Continuity of Care Document ---
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 4Admin Note: [employer] 5Admin Note: [employer]Rixensart,[place] 6Admin Note: Novaritis Medications Abilify 5 mg oral tablet 5 mg, 1, tablet, By Mouth, Daily, to be combined with the citalopram therapy, # 30 tablet, Refills 11, Tot. Refills 11, Maintenance, 07/31/19 14:19:00 EDT, [id number], cm, 07/31/19 13:53:00 EDT, Height, 1... Start Date: 07/31/19 Status: Ordered Ativan 0.5 mg oral tablet 1 tablet = 0.5 mg, By Mouth, 3 times a day, PRN anxiety, # 90 tablet, 2 Refills, Maintenance, 02/26/20 20:28:00 EST, Tablet, [facility]/pharmacy #2339, 160, cm, 01/26/20 9:40:00 EST, Height, 104, kg, 01/19/20 3:57:00 EDT, Dry Weight Start Date: 02/26/20 Status: Ordered atorvastatin 40 mg oral tablet 1 tablet = 40 mg, By Mouth, Daily, # 90 tablet, 1 Refills, Maintenance, 11/16/19 10:37:00 EDT, Tablet, [facility]/pharmacy #2339, 156.6, cm, 10/23/19 15:34:00 EDT, Height, Dry Weight Start Date: 11/16/19 Status: Ordered citalopram 40 mg oral tablet 1 tablet, By Mouth, Daily, # 90 tablet, 1 Refills, Maintenance, 04/04/20 11:03:00 EST, [facility]/pharmacy#2339, 162.5, cm, 04/03/20 11:38:00 EST, [...] months, # 28 tablet, 0 Refills, Maintenance, 04/01/20 14:41:00 EST, Tablet, [facility]/pharmacy #2339, parital fill upon patient request, 160, cm, 02/28/20 10:... Start Date: 04/01/20 Status: Ordered Dulera 100 mcg-5 mcg/inh inhalation aerosol 2 puffs, Inhalation, 2 times a day, # 1 each, 11 Refills, Maintenance, 07/31/19 14:15:00 EDT, Aerosol, [facility]/pharmacy #2339, 2 puffs Inhalation 2 times a day, 157, cm, 07/31/19 13:53:00 EDT, Height, 104, kg, 08/03/17 12:54:00 EDT, Dry Weight Start Date: 07/31/19 Status: Ordered ferrous sulfate 325 mg oral enteric coated tablet 325 mg, By Mouth, 2 times a day, # 60 tablet, Refills 1, Tot. Refills 1, Maintenance, 03/14/20 13:59:00 EST, [id number] 160, cm, 02/28/20 10:28:00 EST, Height, 104, kg, 01/19/20 3:57:00 EDT, Dry Weight Start Date: 03/14/20 Status: Ordered Lasix 40 mg oral tablet 40 mg, 1, tablet, By Mouth, Daily, # 30 tablet, Refills 5, Tot. Refills 5, Maintenance, 03/11/20 13:11:00 EST, Route to Pharmacy Electronically, [facility]/pharmacy #2339, 160, cm, 02/28/20 10:28:00 EST, Height, 104, kg, 01/19/20 3:57:00 EDT, Dry Weight Start Date: 03/11/20 Status: Ordered lisinopril 10 mg oral tablet 10 mg, 1, tablet, By Mouth, Daily, # 90 tablet, Refills 0, Tot. Refills 0, Maintenance, 02/26/20 14:41:00 EST, [facility] Partial fill upon patient request [...] tablet, 0 Refills, Maintenance, 03/11/20 15:21:00 EST, [facility]/pharmacy #2339, parital fill upon patient request, 160, cm, ... Start Date: 03/11/20 Stop Date: 04/10/20 Status: Ordered morphine 30 mg/8 to 12 hr oral tablet, extended release 1 tablet = 30 mg, By Mouth, 3 times a day, OPIATE AGREEMENT evaluated every 3 to 6 months, # 84 tablet, 0 Refills, Maintenance, 04/01/20 14:41:00 EST, [facility]/pharmacy #2339, may fill for less, 160, cm, 02/28/20 10:28:00 EST, Height, 106, kg, 04/01/20 10... Start Date: 04/01/20 Stop Date: 04/29/20 Status: Ordered Multivitamin Daily, 0 Refills, Maintenance, 05/25/16 13:36:30 Start Date: 05/25/16 Status: Ordered Nicoderm C-Q 21 mg/24 hr transdermal film, extended release 1 patch, Topically, Daily, # 30 patch, 3 Refills, Maintenance, 08/25/19 16:23:00 EDT, Patch, [facility]/pharmacy #2339, 157, cm, 08/25/19 15:55:00 EDT, Height Start Date: 08/25/19 Status: Ordered [email or web address] use with inhaler [email or web address] use with inhaler, See Instructions, # [...] 01/22/20 9:08:00 EST, Route to Pharmacy Electronically, [facility]/pharmacy #[id number], 160, cm, 01/22/20 7:53:00 EST, Height, 104, kg, 01/19/20 3:57:00 EDT, Dry Weight Start Date: 01/22/20 Stop Date: 07/20/20 Status: Ordered Ventolin HFA 108 mcg/inh inhalation aerosol with adapter 2 puffs, Inhalation, 4 times a day, PRN for wheezing, # 8 Gm, 5 Refills, Maintenance, 12/20/19 11:27:00 EDT, Aerosol, [facility]/pharmacy #2339, 156.6, cm, 10/23/19 15:34:00 EDT, Height Start Date: 12/20/19 Status: Ordered warfarin 5 mg oral tablet 0.5 tablet = 2.5 mg, By Mouth, Daily at bedtime, 5mg tablet on Fridays, # 30 tablet, 5 Refills, Maintenance, 02/26/20 12:12:00 EST, Tablet, [facility]/pharmacy #2339, 160, cm, 01/26/20 [...] History Type Response Smoking Status 5-9 cigarettes (eduardo casanova 1/4 to 1/2 pack)/day in last 30 days; Other: Started at 23 years old; entered on: 01/18/20 Sex
--- OUTSIDE RECORDS SUMMARY | 2023-08-02 08:32 | XMS_ITS | Continuity of Care Document ---
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 5Admin Note: [employer] [facility] 6Admin Note: [employer]/Rixensart,[place] 7Admin Note: Novaritis Medications Albuterol (Eqv-ProAir HFA) 2 puffs, Inhalation, Every 6 hours, 0 Refills, Maintenance, 10/13/21 13:54:00 EDT, Partial fill upon patient request if the prescription is for a schedule II opioid drug. Start Date: 10/13/21 Status: Ordered amLODIPine 10 mg oral tablet 1 tablet, By Mouth, Daily, # 90 tablet, 3 Refills, Maintenance, 02/23/22 8:50:00 EST, [facility] STORE [facility], 157.48, cm, 01/20/22 14:40:00 EDT, Height, 111, kg, 06/10/21 15:06:00 EDT, Dry Weight Start Date: 02/23/22 Status: Ordered ARIPiprazole 5 mg oral tablet 1, tablet, By Mouth, Daily, for 90 days, TO BE COMBINED WITH THE CITALOPRAM THERAPY, # 90 tablet, Refills 3, Tot. Refills 3, Physician Stop 08/01/22 9:00:00 EDT, 08/06/21 9:00:00 EDT, Route to Pharmacy Electronically, [facility]/pharmacy #[id number], 157.48, cm, 0... Start Date: 08/06/21 Stop Date: 08/01/22 Status: Ordered aspirin 81 mg oral delayed release tablet 81 mg, By Mouth, Daily, # 30 tablet, Refills 11, Tot. Refills 11, Maintenance, 06/12/21 9:27:00 EDT, Route to Pharmacy Electronically, [facility], Partial fill upon patient request if the prescription is for a schedule II opioid drug., 1... Start Date: 06/12/21 Stop Date: 06/07/22 Status: Ordered Ativan 0.5 mg oral tablet 1 tablet = 0.5 mg, By Mouth, Daily at bedtime, PRN as needed for anxiety, # 30 tablet, 5 Refills, Maintenance, 05/25/22 7:04:00 EST, Tablet, [facility]/pharmacy #2339, Partial fill upon patient request if the prescription is for a schedule II opioid drug., 1... Start Date: 05/25/22 Status: Ordered citalopram 40 mg oral tablet 1 tablet, By Mouth, Daily, for 90 days, # 90 tablet, 3 Refills, Physician Stop 08/01/22 9:01:00 EDT, 08/06/21 9:01:00 EDT, [facility]/pharmacy #2339, 157.48, cm, 08/05/21 14:31:00 EDT, Height, [...] EVERY DAY, # 90 tablet, 1 Refills, [facility] STORE 89156, 90, TAKE 1 TABLET BY MOUTH EVERY [...] 1 each, 11 Refills, 06/02/21 14:01:00 EDT, [facility]/pharmacy #2339, 2 puffs Inhalation 2 times a day, 160, cm, 06/02/21 13:26:00 EDT, Height, 103, kg, 04/10/20 11:20:00 EST, Dry Weight Start Date: 06/02/21 Status: Ordered Entresto 24 mg-26 mg oral tablet 1 tablet, By Mouth, 2 times a day, # 60 tablet, 11 Refills, [facility], 30, TAKE 1 TABLET BY MOUTH TWICE [...] 08/06/21 9:01:00 EDT, [facility].48, cm, 08/05/21 14:31:00 EDT, Height, 111,... Start Date: 08/06/21 Stop Date: 08/01/22 Status: Ordered furosemide 20 mg oral tablet 1, tablet, By Mouth, Daily, # 30 tablet, Refills 5, Maintenance, 12/30/21 15:04:00 EDT, Route to Pharmacy Electronically, [facility] 78326, 157.48, cm, 11/04/21 11:33:00 EDT, Height, 111, kg, 06/10/2214:06:00 EDT, Dry Weight Start Date: 12/30/21 Status: Ordered Lipitor 80 mg oral tablet 1 tablet = 80 mg, By Mouth, Daily at bedtime, # 30 tablet, 11 Refills, Maintenance, 06/12/21 9:27:00 EDT, Tablet, [facility], Partial fill upon patient request if the prescription is for a schedule II opioid drug., 157.48, cm, 06/10/21 1... Start Date: 06/12/21 Status: Ordered Metoprolol Succinate ER 25 mg oral tablet, extended release 1 tablet, By Mouth, Daily, # 90 tablet, 2 Refills, Maintenance, 05/21/22 10:15:00 EST, [facility] STORE 50504, 157.48, cm, 05/18/22 9:48:00 EST, Height, 111, kg, 06/10/21 15:06:00 EDT, Dry Weight Start Date: 05/21/22 Status: Ordered rOPINIRole 0.25 mg oral tablet See Instructions, TAJE 1 TABLET BY MOUTH AT BEDTIME FOR 1 WEEK THEN INCRAESE TO 2 AT NIGHT FOR 1 WEEK THEN 3 EVERY NIG, # 90 tablet, 5 Refills, Maintenance, 02/23/22 8:50:00 EST, [facility] STORE 11882, 157.48, cm, 01/20/22 14:40:00 EDT, Height, 111, kg, 03/... Start Date: 02/23/22 Status: Ordered spironolactone 25 mg oral tablet 0.5, tablet, By Mouth, Daily, # 45 tablet, Refills 1, Maintenance, 05/21/22 10:15:00 EST, Route to Pharmacy Electronically, [facility] STORE 60406, 157.48, cm, 05/18/22 9:48:00 EST, Height, 111, kg, 06/10/21 15:06:00 EDT, Dry Weight Start Date: 05/21/22 Status: Ordered warfarin 5 mg oral tablet See Instructions, Take 1/2 to 1 tablet By Mouth Daily as directed by coumadin clinic, # 90 tablet, 2 Refills, Maintenance, 05/12/22 13:52:00 EST, Tablet, [facility]/pharmacy #2339, Partial fill upon patientrequest if the prescription is for a schedule II... Start Date: 05/12/22 Status: Ordered Problem List Condition Confirmation Course Effective Dates Status H ealth Status Informant Asthma Confirmed Active Atrial fibrillation Confirmed Active Back pain 1 Confirmed Active Cardiomyopathy Confirmed Active Major depression, chronic Confirmed Active CHF (congestive heart failure) ([id number]% on echo 2019) Confirmed Active Coronary artery [...] June 2021; entered on: 05/18/22 Sex Female Patient Care team information Care Team Personnel Name: Radha Villela Position: [facility] RN Supv Member Role: Primary Care Nurse Name: Nichole Caotes RN Position: [facility] SN RN Member Role: Primary Care Nurse Name: Ksenia Herzog RN Position: [facility] RN Member Role: Primary Care Nurse Name: Leatha Walsh RN Position: [facility] SN RN Member Role: Primary Care Nurse Name: Milagro Sims RN Position: [facility] RN Member Role: Primary Care Nurse Name: Jo Ann Stubbs PharmD Position: [facility] Associate Professional Member Role: [employer] Consulting Provider Address: Address: [address] [place] [address]- Name: Anne Gonzalez RN Position: [facility] RN Member Role: Primary Care Nurse Name: Mckayla Wilcox RN Position: [facility] SN RN Member Role: Primary Care Nurse Name: Simin Chen RN Position: [facility] RN Member Role: Primary Care Nurse Name: Jose Martinez MD Position: [facility] Primary Care Physician Member Role: PCP Address: Address: [address] [place] [id number]- [place] Name: Aleks Merchant RN Position: [facility] RN Member Role: Primary Care Nurse Name: Genet Bowman RN Position: [facility] SN RN Member Role: Primary Care Nurse Name: Ilana Burns RN Position: [facility] RN Member Role: Primary Care Nurse Care Team Related Persons Name: TUTU ROWLAND Address: [address] [address] Name: JANET CONNOR Address: home [address] [place] [id number]
--- OUTSIDE RECORDS SUMMARY | 2023-08-02 08:32 | XMS_ITS | Continuity of Care Document ---
Author Organization 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 4Admin Note: [employer] [facility] 5Admin Note: [employer] 6Admin Note: Novaritis Medications Abilify 5 mg oral tablet 5 mg, 1, tablet, By Mouth, Daily, to be combined with the citalopram therapy, # 30 tablet, Refills 11, Tot. Refills 11, Maintenance, 07/31/19 14:19:00 EDT, Route to Pharmacy Electronically, [facility]/pharmacy #[id number], 157, cm, 07/31/19 13:53:00 EDT, Height, 1... Start Date: 07/31/19 Status: Ordered amLODIPine 5 mg oral tablet 5 mg, 1, tablet, By Mouth, Daily, # 90 tablet, Refills 0, Tot. 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 Refills 0, Maintenance, 08/04/17 9:05:52 EDT, Route to Pharmacy Electronically, [id number], [facility] Start Date: 08/04/17 Status: Ordered Ativan 0.5 mg oral tablet 1 tablet = 0.5 mg, By Mouth, 3 times a day, PRN anxiety, # 90 tablet, 2 Refills, Maintenance, 07/24/19 17:04:00 EDT, Tablet, [facility]/pharmacy #[id number], 157, cm, 04/21/19 10:26:00 EST, Height, 104, kg, 08/03/17 12:54:00 EDT, Dry Weight Start Date: 07/24/19 Status: Ordered atorvastatin 40 mg oral tablet 1 tablet = 40 mg, By Mouth, Daily, # 30 tablet, 5 Refills, Maintenance, 09/17/19 11:30:00 EDT, Tablet, [facility]/pharmacy #[id number], 157, cm, 08/25/19 15:55:00 EDT, Height, Dry Weight Start Date: 09/17/19 Status: Ordered citalopram 40 mg oral tablet 1 tablet, By Mouth, Daily, # 90 tablet, 1 Refills, Maintenance, 10/03/19 13:25:00 EDT, [id number], 157, cm, 08/25/19 15:55:00 EDT, Height Start [...] months, # 28 tablet, 0 Refills, Maintenance, 10/02/19 15:43:00 EDT, Tablet, [facility]/pharmacy #[id number], parital fill upon patient request, 157, cm, 08/25/19 15:... Start Date: 10/02/19 Status: Ordered Dulera 100 mcg-5 mcg/inh inhalation [...] months, # 90 tablet, 0 Refills, Maintenance, 10/10/19 14:02:00 EDT, [id number], parital fill upon patient request, 157, cm, ... Start Date: 10/10/19 Stop Date: 11/09/19 Status: Ordered morphine 30 mg/8 to 12 hr oral tablet, extended release 1 tablet = 30 mg, By Mouth, 3 times a day, OPIATE AGREEMENT evaluated every 3 to 6 months, # 84 tablet, 0 Refills, Maintenance, 10/10/19 14:02:00 EDT, [id number], may fill for less, 157, cm, 08/25/19 15:55:00 EDT, Height, Dry Weight Start Date: 10/10/19 Stop Date: 11/07/19 Status: Ordered Multivitamin Daily, 0 Refills, Maintenance, 05/25/16 13:36:30 Start Date: 05/25/16 Status: Ordered Narcan 4 mg/0.1 mL nasal spray See Instructions, use for signs of respiratory distress may repeat every 2 to 3 minutes until patient responds, # 2 each, 0 Refills, Soft Stop, 05/10/19 16:02:00 EST, [id number], 157, cm, 04/21/19 10:26:00 EST, Height, 104, kg, 08/03/17 12:... Start Date: 05/10/19 Status: Ordered Nicoderm C-Q 21 mg/24 hr transdermal film, extended release 1 patch, Topically, Daily, # 30 patch, 3 Refills, Maintenance, 08/25/19 16:23:00 EDT, Patch, [facility]/pharmacy #[id number], 157, cm, 08/25/19 15:55:00 EDT, Height Start Date: 08/25/19 Status: Ordered [facility] use with inhaler [facility] use with inhaler, See Instructions, [...] 14:55:12 EDT, Aerosol, Route to Pharmacy Electronically, [id number], [facility]/pharmacy #[id number] Start Date: 10/28/18 Status: Ordered spacer [...] 10/23/19 15:22:00 EDT, Route to Pharmacy Electronically, [facility]/pharmacy #[id number], 156.5, cm, 10/20/19 16:01:00 EDT, Height Start Date: 10/23/19 Status: Ordered torsemide 5 mg oral tablet 1 tablet = 5 mg, By Mouth, Daily, # 30 tablet, 11 Refills, Maintenance, 10/20/19 16:34:00 EDT, [facility]/pharmacy #2339, 156.5, cm, 10/20/19 16:01:00 EDT, Height [...] Effective Dates Health Status Clinical Service Informant Annual physical exam Discharge Diagnosis 10/21/19 Asthma Discharge Diagnosis 10/21/19 Atrial fibrillation Discharge Diagnosis 10/21/19 Hypertension Discharge Diagnosis 10/21/19 Major depression, chronic Discharge Diagnosis 10/21/19 PRINCESS - Obstructive sleep apnea Discharge Diagnosis 10/21/19 Tobacco abuse Discharge Diagnosis 10/21/19 Vital Signs Most recent to oldest [Reference Range]: 1 Height 156.50 cm (10/20/19 4:01 PM) Weight 114.2 kg (10/20/19 4:01 PM) Oxygen Saturation [94-100 %] 96 % (10/20/19 4:01 PM) Pulse Rate [55-90 bpm] 92 bpm *H* (10/20/19 4:01 PM) Body Mass Index [18.5-24.99] 46.63 *>HHI* (10/20/19 4:01 PM) Blood Pressure [90-138/55-84 mm Hg] 130/ 78mm Hg (10/20/19 4:01 PM) Blood pressure sites Arm, left (10/20/19 4:01 PM) Social History Social History Type Response Smoking Status Former smoker; Type: Cigarettes; Other: Quit 12/03/14; entered on: 12/10/14 Sex
--- OUTSIDE RECORDS SUMMARY | 2023-08-02 08:32 | XMS_ITS | Continuity of Care Document ---
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 4Admin Note: [place] 5Admin Note: [employer],[place] 6Admin Note: Novaritis Medications amLODIPine 5 mg oral tablet 5 mg, 1, tablet, By Mouth, Daily, # 90 tablet, Refills 1, Tot. 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 Refills 0, Maintenance, 08/04/17 9:05:52 EDT, Route to Pharmacy Electronically, [id number], [facility] [address] [facility] 3 Start Date: 08/04/17 Status: Ordered Ativan 0.5 mg oral tablet 1 tablet = 0.5 mg, By Mouth, 3 times a day, PRN anxiety, # 90 tablet, 2 Refills, Maintenance, 03/20/19 16:41:00 EST, Tablet, [facility]/pharmacy #[id number], 157, cm, 01/13/19 9:10:00 EDT, Height, 104, kg, 08/03/17 12:54:00 EDT, Dry Weight Start Date: 03/20/19 Status: Ordered atorvastatin 40 mg oral tablet 1 tablet = 40 mg, By Mouth, Daily, # 30 tablet, 5 Refills, Maintenance, 03/20/19 15:53:00 EST, Tablet, [facility]/pharmacy #2339, 157, cm, 01/13/19 9:10:00 EDT, Height, 104, kg, 08/03/17 12:54:00 EDT, Dry Weight Start Date: 03/20/19 Status: Ordered CeleXA 40 mg oral tablet 1, tablet, By Mouth, Daily, # 90 tablet, Refills 1, Tot. Refills 1, Maintenance, 03/20/19 16:10:00 EST, Route to Pharmacy Electronically, [facility]/pharmacy #[id number], 157, cm, 01/13/19 9:10:00 EDT, Height, [...] 0 Refills, Maintenance, 03/13/19 12:38:00 EST, Tablet, [facility]/pharmacy #[id number], parital fill upon patient request, 03/14/19, 157, cm, 10... Start Date: 03/13/19 Status: Ordered Eliquis 5 mg oral tablet 1 tablet = 5 mg, By Mouth, 2 times a day, # 60 tablet, 5 Refills, Maintenance, 04/21/19 10:58:00 EST, Tablet Start Date: 04/21/19 Status: Ordered morphine 15 mg/8 to 12 hr oral tablet, extended release 1 tablet = 15 mg, By Mouth, Every 8 hours, PRN Pain , Moderate, On substance agreement evaluated every 3 to 6 months, # 90 tablet, 0 Refills, Maintenance, 04/12/19 9:47:00 EST, [facility]/pharmacy #[id number], parital fill upon patient request, 04/12/19, 157, cm... Start Date: 04/12/19 Stop Date: 05/12/19 Status: Ordered morphine 30 mg/8 to 12 hr oral tablet, extended release 1 tablet = 30 mg, By Mouth, 3 times a day, OPIATE AGREEMENT evaluated every 3 to 6 months, # 84 tablet, 0 Refills, Maintenance, 03/13/19 12:38:00 EST, [facility]/pharmacy #2339, may fill for less, 03/14/19,157, cm, 01/13/19 9:10:00 EDT, Height, 104, kg, 05... Start Date: 03/13/19 Stop Date: 04/10/19 Status: Ordered Multivitamin Daily, 0 Refills, Maintenance, 05/25/16 13:36:30 Start Date: 05/25/16 Status: [facility] use with inhaler [facility] use with inhaler, See Instructions, # [...] 14:55:12 EDT, Aerosol, Route to Pharmacy Electronically, [id number], [facility]/pharmacy #2339 Start Date: 10/28/18 Status: Ordered Ventolin HFA [...] Clinical Service Informant Atrial fibrillation Discharge Diagnosis 04/21/19 Continuous opioid dependence Discharge Diagnosis 04/21/19 Vital Signs Most recent to oldest [Reference Range]: 1 Height 157.00 cm (04/21/19 10:26 AM) Weight 111.9 kg (04/21/19 10:26 AM) Oxygen Saturation [94-100 %] 95 % (04/21/19 10:26 AM) Pulse Rate [55-90 bpm] 85 bpm (04/21/19 10:26 AM) Body Mass Index [18.5-24.99] 45.4 *>HHI* (04/21/19 10:26 AM) Blood Pressure [90-138/55-84 mm Hg] 116/ 86mm Hg (04/21/19 10:26 AM) Blood pressure sites Arm, left (04/21/19 10:26 AM) Social History Social History Type Response Smoking Status Former smoker; Type: Cigarettes; Other: Quit 12/03/14; entered on: 12/10/14 Sex
--- OUTSIDE RECORDS SUMMARY | 2023-08-02 08:32 | XMS_ITS | Continuity of Care Document ---
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 4Admin Note: [employer] 5Admin Note: [employer],[place] 6Admin Note: Novaritis Medications Abilify 5 mg oral tablet 5 mg, 1, tablet, By Mouth, Daily, to be combined with the citalopram therapy, # 30 tablet, Refills 11, Tot. Refills 11, Maintenance, 07/31/19 14:19:00 EDT, [id number], [facility], cm, 07/31/19 13:53:00 EDT, Height, 1... Start Date: 07/31/19 Status: Ordered Ativan 0.5 mg oral tablet 1 tablet = 0.5 mg, By Mouth, 3 times a day, PRN anxiety, # 90 tablet, 2 Refills, Maintenance, 02/26/20 20:28:00 EST, Tablet, [facility]/pharmacy #2339, 160, cm, 01/26/20 9:40:00 EST, Height, 104, kg, 01/19/20 3:57:00 EDT, Dry Weight Start Date: 02/26/20 Status: Ordered atorvastatin 40 mg oral tablet 1 tablet = 40 mg, By Mouth, Daily, # 90 tablet, 1 Refills, Maintenance, 11/16/19 10:37:00 EDT, Tablet, [facility]/pharmacy #2339, 156.6, cm, 10/23/19 15:34:00 EDT, Height, Dry Weight Start Date: 11/16/19 Status: Ordered citalopram 40 mg oral tablet 1 tablet, By Mouth, Daily, # 90 tablet, 1 Refills, Maintenance, 04/04/20 11:03:00 EST, [facility]/pharmacy#2339, 162.5, cm, 04/03/20 11:38:00 EST, Height, 108, [...] 0 Refills, Maintenance, 04/01/20 14:41:00 EST, Tablet, [facility]/pharmacy #[id number], parital fill upon patient request, 160, cm, 02/28/20 10:... Start Date: 04/01/20 Status: Ordered Dulera 100 mcg-5 mcg/inh inhalation aerosol 2 puffs, Inhalation, 2 times a day, # 1 each, 11 Refills, Maintenance, 07/31/19 14:15:00 EDT, Aerosol, [facility]/pharmacy #2339, 2 puffs Inhalation 2 times a day, 157, cm, 07/31/19 13:53:00 EDT, Height, 104, kg, 08/03/17 12:54:00 EDT, Dry Weight Start Date: 07/31/19 Status: Ordered ferrous sulfate 325 mg oral enteric coated tablet 325 mg, By Mouth, 2 times a day, # 60 tablet, Refills 1, Tot. Refills 1, Maintenance, 03/14/20 13:59:00 EST, [facility], [facility], 160, cm, 02/28/20 10:28:00 EST, Height, 104, kg, 01/19/20 3:57:00 EDT, Dry Weight Start Date: 03/14/20 Status: Ordered Lasix 40 mg oral tablet 40 mg, 1, tablet, By Mouth, Daily, # 30 tablet, Refills 5, Tot. Refills 5, Maintenance, 03/11/20 13:11:00 EST, Route to Pharmacy Electronically, [facility]/pharmacy #2339, 160, cm, 02/28/20 10:28:00 EST, Height, 104, kg, 01/19/20 3:57:00 EDT, Dry Weight Start Date: 03/11/20 Status: Ordered lisinopril 10 mg oral tablet 10 mg, 1, tablet, By Mouth, Daily, # 90 tablet, Refills 0, Tot. Refills 0, Maintenance, 02/26/20 14:41:00 EST, [facility] Pharm[facility] Electronically, [facility], Partial fill upon patient request if the prescription is for a schedule II opioid drug... Start Date: 02/26/20 Status: Ordered morphine 15 mg/8 to 12 hr oral tablet, extended release 1 tablet = 15 mg, By Mouth, Every 8 hours, PRN Pain , Moderate, On substance agreement evaluated every 3 to 6 months, # 90 tablet, 0 Refills, Maintenance, 03/11/20 15:21:00 EST, [facility]/pharmacy #[id number], parital fill upon patient request, 160, cm, ... Start Date: 03/11/20 Stop Date: 04/10/20 Status: Ordered morphine 30 mg/8 to 12 hr oral tablet, extended release 1 tablet = 30 mg, By Mouth, 3 times a day, OPIATE AGREEMENT evaluated every 3 to 6 months, # 84 tablet, 0 Refills, Maintenance, 04/01/20 14:41:00 EST, [facility]/pharmacy #2339, may fill for less, 160, cm, 02/28/20 10:28:00 EST, Height, 106, kg, 04/01/20 10... Start Date: 04/01/20 Stop Date: 04/29/20 Status: Ordered Multivitamin Daily, 0 Refills, Maintenance, 05/25/16 13:36:30 Start Date: 05/25/16 Status: Ordered Nicoderm C-Q 21 mg/24 hr transdermal film, extended release 1 patch, Topically, Daily, # 30 patch, 3 Refills, Maintenance, 08/25/19 16:23:00 EDT, Patch, [facility]/pharmacy #2339, 157, cm, 08/25/19 15:55:00 EDT, Height Start Date: 08/25/19 Status: Ordered [employer] [facility] use with inhaler [employer] [facility] use with inhaler, See Instructions, [...] 01/22/20 9:08:00 EST, Route to Pharmacy Electronically, [facility]/pharmacy #2339, 160, cm, 01/22/20 7:53:00 EST, Height, 104, kg, 01/19/20 3:57:00 EDT, Dry Weight Start Date: 01/22/20 Stop Date: 07/20/20 Status: Ordered Ventolin HFA 108 mcg/inh inhalation aerosol with adapter 2 puffs, Inhalation, 4 times a day, PRN for wheezing, # 8 Gm, 5 Refills, Maintenance, 12/20/19 11:27:00 EDT, Aerosol, [facility]/pharmacy #2339, 156.6, cm, 10/23/19 15:34:00 EDT, Height Start Date: 12/20/19 Status: Ordered warfarin 5 mg oral tablet 0.5 tablet = 2.5 mg, By Mouth, Daily at bedtime, 5mg tablet on Fridays, # 30 tablet, 5 Refills, Maintenance, 02/26/20 12:12:00 EST, Tablet, [facility]/pharmacy #2339, 160, cm, 01/26/20 9:40:00 EST, Height, [...]
--- OUTSIDE RECORDS SUMMARY | 2023-08-02 08:32 | XMS_ITS | Continuity of Care Document ---
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 5Admin Note: [employer] [facility] 6Admin Note: [employer],[place] 7Admin Note: Novaritis Medications amLODIPine 10 mg oral tablet 1 tablet, By Mouth, Daily, # 90 tablet, 1 Refills, [id number], 157.48, cm, 08/12/21 10:44:00 EDT, Height, 111, kg, 06/10/21 15:06:00 EDT, Dry Weight Start Date: 10/03/21 Status: Ordered ARIPiprazole 5 mg oral tablet 1, tablet, By Mouth, Daily, for 90 days, TO BE COMBINED WITH THE CITALOPRAM THERAPY, # 90 tablet, Refills 3, Tot. Refills 3, Physician Stop 08/01/22 9:00:00 EDT, 08/06/21 9:00:00 EDT, Route to Pharmacy Electronically, [facility]/pharmacy #2339, 157.48, cm, 0... Start Date: 08/06/21 Stop Date: 08/01/22 Status: Ordered aspirin 81 mg oral delayed release tablet 81 mg, By Mouth, Daily, # 30 tablet, Refills 11, Tot. Refills 11, Maintenance, 06/12/21 9:27:00 EDT, Route to Pharmacy Electronically, [facility], Partial fill upon patient request if the prescription is for a schedule II opioid drug., 1... Start Date: 06/12/21 Stop Date: 06/07/22 Status: Ordered Ativan 0.5 mg oral tablet 1 tablet = 0.5 mg, By Mouth, Daily at bedtime, PRN as needed for anxiety, # 30 tablet, 1 Refills, Maintenance, 08/06/21 9:02:00 EDT, Tablet, [facility]/pharmacy #2339, Partial fill upon patient request if the prescription is for a schedule II opioid drug., 1... Start Date: 08/06/21 Status: Ordered citalopram 40 mg oral tablet 1 tablet, By Mouth, Daily, for 90 days, # 90 tablet, 3 Refills, Physician Stop 08/01/22 9:01:00 EDT, 08/06/21 9:01:00 EDT, [facility]/pharmacy #2339, 157.48, cm, 08/05/21 14:31:00 EDT, [...] 1 each, 11 Refills, 06/02/21 14:01:00 EDT, [facility]/pharmacy #2339, 2 puffs Inhalation 2 times a day, 160, cm, 06/02/21 13:26:00 EDT, Height, 103, kg, 04/10/20 11:20:00 EST, Dry Weight Start Date: 06/02/21 Status: Ordered Entresto 24 mg-26 mg oral tablet 1 tablet, By Mouth, 2 times a day, # 60 tablet, 11 Refills, [facility], 30, TAKE 1 TABLET BY MOUTH TWICE [...] 08/06/21 9:01:00 EDT, Route to Pharmacy Electronically, [facility]/pharmacy #2339, 157.48, cm, 08/05/21 14:31:00 EDT, [...] of lasix that day and call 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 Start Date: 06/12/21 Status: Ordered Lipitor 80 mg oral tablet 1 tablet = 80 mg, By Mouth, Daily at bedtime, # 30 tablet, 11 Refills, Maintenance, 06/12/21 9:27:00 EDT, Tablet, [facility], Partial fill upon patient request if the prescription is for a schedule II opioid drug., 157.48, cm, 06/10/21 1... Start Date: 06/12/21 Status: Ordered metoprolol 100 mg oral tablet, extended release 100 mg, 1, tablet, By Mouth, Daily, # 90 tablet, Refills 3, Tot. Refills 3, Maintenance, 09/11/21 12:08:00 EDT, Route to Pharmacy Electronically, [facility]/pharmacy #2339, 157.48, cm, 08/12/21 10:44:00 EDT, [...] tablet, 0 Refills, Maintenance, 08/19/21 14:03:00 EDT, [facility]/pharmacy #2339, parital fill upon [...] 5 Refills, Maintenance, 06/09/21 15:31:00 EDT, Tablet, [facility]/pharmacy #2339, Partial fill upon [...] each, 1 Refills, Maintenance, 08/05/21 15:00:00 EDT, [facility]/pharmacy #2339, Partial fill upon patient request if the prescription is for a schedul... Start Date: 08/05/21 Status: Ordered torsemide 5 mg oral tablet 2 tablet, By Mouth, Daily, # 180 tablet, 1 Refills, [facility] [address], 157.48, cm, 08/12/21 10:44:00 EDT, Height, 111, kg, 06/10/21 15:06:00 EDT, Dry Weight Start Date: 09/19/21 Status: Ordered warfarin 5 mg oral tablet 0.5 tablet = 2.5 mg, By Mouth, Daily, Goal INR 2-3 Please follow up with your coumadin clinic, # [id number], 0 Refills, Maintenance, 06/12/21 9:27:00 EDT, Tablet, [facility], Partial fill upon patient request if the prescription is for a... Start Date: 06/12/21 Status: Ordered Problem List Condition Effective Dates Status Health Status Inform ant Asthma(Confirmed) Active Atrial fibrillation(Confirmed) Active Back pain(Confirmed) 1 Active Major depression, chronic(Confirmed) Active CHF (congestive heart failur e) ([id number]% on echo 2019)(Confirmed) Active Continuous opioid dependence(Confirmed) [...]
--- OUTSIDE RECORDS SUMMARY | 2023-08-02 08:32 | XMS_ITS | Continuity of Care Document ---
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 5Admin Note: [employer]Rix[employer],[place] 6Admin Note: Novaritis Medications Abilify 5 mg oral tablet 5 mg, 1, tablet, By Mouth, Daily, to be combined with the citalopram therapy, # 30 tablet, Refills 11, Tot. Refills 11, Maintenance, 07/31/19 14:19:00 EDT, [id number] 157, cm, 07/31/19 13:53:00 EDT, Height, 1... Start Date: 07/31/19 Status: Ordered Ativan 0.5 mg oral tablet 1 tablet = 0.5 mg, By Mouth, 3 times a day, PRN anxiety, # 90 tablet, 2 Refills, Maintenance, 02/26/20 20:28:00 EST, [facility], 160, cm, 01/26/20 9:40:00 EST, Height, 104, kg, 01/19/20 3:57:00 EDT, Dry Weight Start Date: 02/26/20 Status: Ordered atorvastatin 40 mg oral tablet 1 tablet = 40 mg, By Mouth, Daily, # 90 tablet, 1 Refills, Maintenance, 11/16/19 10:37:00 EDT, [facility], 156.6, cm, 10/23/19 15:34:00 EDT, Height, Dry Weight Start Date: 11/16/19 Status: Ordered citalopram 40 mg oral tablet 1 tablet, By Mouth, Daily, # 90 tablet, 1 Refills, Maintenance, 10/03/19 13:25:00 EDT, [facility], 157, cm, 08/25/19 15:55:00 EDT, Height Start [...] 0 Refills, Maintenance, 02/07/20 16:16:00 EST, Tablet, [facility]/pharmacy #2339, parital fill upon patient request, 160, cm, 01/26/20 9:4... Start Date: 02/07/20 Status: Ordered Dulera 100 mcg-5 mcg/inh inhalation aerosol 2 puffs, Inhalation, 2 times a day, # 1 each, 11 Refills, Maintenance, 07/31/19 14:15:00 EDT, Aerosol, [facility]/pharmacy #2339, 2 puffs Inhalation 2 times a day, 157, cm, 07/31/19 13:53:00 EDT, Height, 104, kg, 08/03/17 12:54:00 EDT, Dry Weight Start Date: 07/31/19 Status: Ordered ferrous sulfate 325 mg oral enteric coated tablet 325 mg, By Mouth, 2 times a day, # 60 tablet, Refills 1, Tot. Refills 1, Maintenance, 02/16/20 10:07:00 EST, Route to Pharmacy Electronically, [facility]/pharmacy #2339, 160, cm, 01/26/20 9:40:00 EST, Height, 104, kg, 01/19/20 3:57:00 EDT, Dry Weight Start Date: 02/16/20 Status: Ordered Lasix 40 mg oral tablet 40 mg, 1, tablet, By Mouth, Daily, # 30 tablet, Refills 5, Tot. Refills 5, Maintenance, 03/11/20 13:11:00 EST, Route to Pharmacy Electronically, [facility]/pharmacy #2339, 160, cm, 02/28/20 10:28:00 EST, Height, 104, kg, 01/19/20 3:57:00 EDT, Dry Weight Start Date: 03/11/20 Status: Ordered lisinopril 10 mg oral tablet 10 mg, 1, tablet, By Mouth, Daily, # 90 tablet, Refills 0, Tot. Refills 0, Maintenance, 02/26/20 14:41:00 EST, Route to Pharmacy Electronically, [facility]/pharmacy #2339, Partial fill upon patient request [...] tablet, 0 Refills, Maintenance, 03/11/20 15:21:00 EST, [facility]/pharmacy #2339, parital fill upon patient request, 160, cm, ... Start Date: 03/11/20 Stop Date: 04/10/20 Status: Ordered morphine 30 mg/8 to 12 hr oral tablet, extended release 1 tablet = 30 mg, By Mouth, 3 times a day, OPIATE AGREEMENT evaluated every 3 to 6 months, # 84 tablet, 0 Refills, Maintenance, 02/07/20 16:16:00 EST, [facility]/pharmacy #2339, may fill for less, 160, cm, 01/26/20 9:40:00 EST, Height, 104, kg, 01/19/20 3:5... Start Date: 02/07/20 Stop Date: 03/06/20 Status: Ordered Multivitamin Daily, 0 Refills, Maintenance, 05/25/16 13:36:30 Start Date: 05/25/16 Status: Ordered Nicoderm C-Q 21 mg/24 hr transdermal film, extended release 1 patch, Topically, Daily, # 30 patch, 3 Refills, Maintenance, 08/25/19 16:23:00 EDT, Patch, [facility]/pharmacy #2339, 157, cm, 08/25/19 15:55:00 EDT, Height Start Date: 08/25/19 Status: Ordered [facility] use with inhaler [facility] use with inhaler, See Instructions, [...] 01/22/20 9:08:00 EST, Route to Pharmacy Electronically, [facility]/pharmacy #2339, 160, cm, 01/22/20 7:53:00 EST, Height, 104, kg, 01/19/20 3:57:00 EDT, Dry Weight Start Date: 01/22/20 Stop Date: 07/20/20 Status: Ordered Ventolin HFA 108 mcg/inh inhalation aerosol with adapter 2 puffs, Inhalation, 4 times a day, PRN for wheezing, # 8 Gm, 5 Refills, Maintenance, 12/20/19 11:27:00 EDT, Aerosol, [facility]/pharmacy #2339, 156.6, cm, 10/23/19 15:34:00 EDT, Height Start Date: 12/20/19 Status: Ordered warfarin 5 mg oral tablet 1 tablet = 5 mg, By Mouth, Daily, # 30 tablet, 5 Refills, Maintenance, 02/26/20 12:12:00 EST, Tablet, [facility]/pharmacy #2339, 160, cm, 01/26/20 9:40:00 EST, [...]
--- OUTSIDE RECORDS SUMMARY | 2023-08-02 08:32 | XMS_ITS | Continuity of Care Document ---
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 Name Role Phone Michelle HICKEY, Jose Primary Care Physician [facility]counter [facility] Date(s): 04/01/23 - 05/01/23 [facility] [address] [place] [address]- Allergies, Adverse Reactions, Alerts Substance Reaction Severity Status Nembutal Hyperventalating Active Cordran Tape BLISTERS Active Chantix Active traZODone daytime gogginess Active Immunizations Given and Recorded Vaccine Date Status Refusal Reason influenza virus vaccine, inactivated 01/19/23 Vladimir rded [...] virus vaccine, inactivated 4 02/09/06 [facility] tetanus-diphtheria toxoids (Td) 02/05/22 [...] inactive(oldterm) 7 01/21/09 Given 1Result Comment: [facility]:[id number] 2Result Comment: [01/19/2018] [id number] 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 Start Date: 10/13/21 Status: Ordered amLODIPine 10 mg oral tablet 1 tablet, By Mouth, Daily, # 90 tablet, 1 Refills, Maintenance, 01/25/23 22:10:00 EST, [facility], 157.48, cm, 11/17/22 16:49:00 EDT, Height, 111, kg, 06/10/21 15:06:00 EDT, Dry Weight Start Date: 01/25/23 Status: Ordered ARIPiprazole 5 mg oral tablet 1, tablet, By Mouth, Daily, TO BE COMBINED WITH THE CITALOPRAM THERAPY., # 90 tablet, Refills 1, Tot. Refills 1, Maintenance, 04/01/23 21:26:00 EST, Route to Pharmacy Electronically, [facility]/pharmacy #2339, 157.48, cm, 11/17/22 16:49:00 EDT, Height, 111,... Start Date: 04/01/23 Status: Ordered aspirin 81 mg oral delayed release tablet 81 mg, By Mouth, Daily, # 30 tablet, Refills 11, Tot. Refills 11, Maintenance, 06/12/21 9:27:00 EDT, Route to Pharmacy Electronically, [facility], Partial fill upon patient request if the prescription is for a schedule II opioid drug., 1... Start Date: 06/12/21 Stop Date: 06/07/22 Status: Ordered Ativan 0.5 mg oral tablet 1 tablet = 0.5 mg, By Mouth, Daily at bedtime, PRN as needed for anxiety, # 30 tablet, 5 Refills, Maintenance, 12/04/22 15:42:00 EDT, Tablet, [facility]/pharmacy #2339, Partial fill upon patient request if the prescription is for a schedule II opioid drug.,... Start Date: 12/04/22 Status: Ordered atorvastatin 80 mg oral tablet 1 tablet, By Mouth, Daily at bedtime, # 90 tablet, 1 Refills, Maintenance, 10/12/22 12:22:00 EDT, [facility], 157.48, cm, 08/28/22 9:39:00 EDT, Height, 111, [...] tablet, 1 Refills, Maintenance, 04/28/23 7:10:00 EST, [facility], 157.48, cm, 04/19/23 8:28:00 EST, Height, 111, [...] # 90 tablet, 1 Refills, [facility], 90, TAKE 1 TABLET BY MOUTH EVERY [...] each, 11 Refills, Maintenance, 07/08/22 11:55:00 EDT, [facility], 30, INHALE 2 PUFFS TWICE A DAY, 157.48, cm, 05/18/22 9:48:00 EST, Height, 111, kg, 06/10/21 15:06:00 EDT, Dry Weight Start Date: 07/08/22 Status: Ordered Entresto 24 mg-26 mg oral tablet 1 tablet, By Mouth, 2 times a day, # 60 tablet, 11 Refills, Maintenance, 09/21/22 14:36:00 EDT, [facility], 30, TAKE 1 TABLET BY MOUTH TWICE A DAY, 157.48, cm, 08/28/22 9:39:00 EDT, Height, 111,kg, 06/10/21 15:06:00 EDT, Dry Weight Start Date: 09/21/22 Status: Ordered Entresto 24 mg-26 mg oral tablet 1 tablet, By Mouth, 2 times a day, # 60 tablet, 11 Refills, [facility] [address], 30, TAKE 1 TABLET BY MOUTH TWICE A DAY, 157.48, cm, 08/12/21 10:44:00 EDT, Height, 111, kg, 06/10/21 15:06:00 EDT, Dry Weight Start Date: 09/18/21 Status: Ordered ferrous sulfate 325 mg oral enteric coated tablet 1, tablet, By Mouth, 2 times a day, # 180 tablet, Refills 1, Maintenance, 07/26/22 7:26:00 EDT, Route to Pharmacy Electronically, [facility], 157.48, cm, 05/18/22 9:48:00 EST, Height, 111, kg, 06/10/21 15:06:00 EDT, Dry Weight Start Date: 07/26/22 Status: Ordered furosemide 20 mg oral tablet 1, tablet, By Mouth, Daily, # 90 tablet, Refills 1, Maintenance, 12/28/22 9:01:00 EDT, Route to Pharmacy Electronically, [facility], 157.48, cm, 11/17/22 16:49:00 EDT, Height, 111, kg, 06/10/21 15:06:00 EDT, Dry Weight Start Date: 12/28/22 Status: Ordered furosemide 20 mg oral tablet 1, tablet, By Mouth, Daily, # 90 tablet, Refills 1, Maintenance, 07/02/22 8:00:00 EDT, Route to Pharmacy Electronically, [facility], 157.48, cm, 05/18/22 9:48:00 EST, Height, 111, kg, 06/10/21 15:06:00 EDT, Dry Weight Start Date: 07/02/22 Status: Ordered furosemide 20 mg oral tablet 1, tablet, By Mouth, Daily, # 90 tablet, Refills 1, Maintenance, 04/26/23 12:41:00 EST, Route to Pharmacy Electronically, [facility], 157.48, cm, 04/19/23 8:28:00 EST, Height, 111, kg, 06/10/21 15:06:00 EDT, Dry Weight Start Date: 04/26/23 Status: Ordered furosemide 20 mg oral tablet 1, tablet, By Mouth, Daily, # 30 tablet, Refills 5, Maintenance, 12/30/21 15:04:00 EDT, Route to Pharmacy Electronically, [facility], 157.48, cm, 11/04/21 11:33:00 EDT, Height, 111, kg, 06/10/2214:06:00 EDT, Dry Weight Start Date: 12/30/21 Status: Ordered Metoprolol Succinate ER 100 mg oral tablet, extended release 1.5 tablet = 150 mg, By Mouth, Daily, # 135 tablet, 3 Refills, Maintenance, 10/12/22 15:26:00 EDT, XL Tablet, [facility], Partial fill upon patient request if [...] tablet, 0 Refills, Maintenance, 04/28/23 7:10:00 EST, [facility], 157.48, cm, 04/19/23 8:28:00 EST, Height, 111, kg, ... Start Date: 04/28/23 Status: Ordered spironolactone 25 mg oral tablet 0.5, tablet, By Mouth, Daily, # 45 tablet, Refills 1, Maintenance, 05/21/22 10:15:00 EST, Route to Pharmacy Electronically, [facility] [address]366, 157.48, cm, 05/18/22 9:48:00 EST, Height, 111, kg, 06/10/21 15:06:00 EDT, Dry Weight Start Date: 05/21/22 Status: Ordered warfarin 5 mg oral tablet See Instructions, Take 1/2 to 1 tablet By Mouth Daily as directed by coumadin clinic, # 90 tablet, 2 Refills, Maintenance, 05/12/22 13:52:00 EST, Tablet, [facility], Partial fill upon patientrequest if the prescription is for a schedule II... Start Date: 05/12/22 Status: Ordered Wegovy (0.25 mg dose) subcutaneous solution = 0.25 mg, Subcutaneous Injection, Every week, for 4 week(s), in the abdomen, thigh, or upper arm, # 2 mL, 1 Refills, Acute 06/14/23 8:54:00 EDT, 04/19/23 8:54:00 EST, Solution, [facility], Partial fill upon patient request if the prescription... Start Date: 04/19/23 Stop Date: 06/14/23 Status: Ordered Problem List Condition Confirmation Course Effective Dates Status H ealth Status Informant Asthma Confirmed Active Atrial fibrillation Confirmed Active Back pain 1 Confirmed Active Cardiomyopathy Confirmed Active Major depression, chronic Confirmed Active CHF (congestive heart failure) (DALP52-91% on echo 2019) Confirmed Active Coronary artery [...] Care Team Personnel Name: Radha Villela Position: [facility] RN Supv Member Role: Primary Care Nurse Name: Nichole Coates RN Position: [facility] RN Member Role: Primary Care Nurse Name: Ksenia Herzog RN Position: [facility] RN Member Role: Primary Care Nurse Name: Leatha Walsh RN Position: [facility] SN RN Member Role: Primary Care Nurse Name: Milagro Sims RN Position: [facility] ANGEL Nurse Member Role: Primary Care Nurse Name: Jo Ann Stubbs PharmD Position: [facility] Associate Professional Member Role: [employer] Provider Address: Address: [address] [place] [id number]- Name: Anne Gonzalez RN Position: [facility] RN Member Role: Primary Care Nurse Name: Mckayla Wilcox RN Position: [facility] SN RN Member Role: Primary Care Nurse Name: Simin Chen RN Position: [facility] RN Member Role: Primary Care Nurse Name: Jose Martinez MD Position: [facility] Physician - Primary Care Member Role: PCP Address: Address: [address] [place] [id number]- [place] Name: Aleks Merchant RN Position: [facility] RN Member Role: Primary Care Nurse Name: Genet Bowman RN Position: [facility] SN RN Member Role: Primary Care Nurse Name: Ilana Burns RN Position: [facility] RN Member Role: Primary Care Nurse Care Team Related Persons Name: TUTU ROWLAND Address: [address] [address] Name: JANET CONNOR Address: [address] [address]
--- OUTSIDE RECORDS SUMMARY | 2023-08-02 08:32 | XMS_ITS | Continuity of Care Document ---
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 Refills 11, Maintenance, 06/12/21 9:27:00 EDT, Route to Pharmacy Electronically, [facility], Partial fill upon patient request [...] Mouth, Daily, # 90 tablet, 1 Refills, [facility]7710, 162.5, cm, 01/29/21 12:38:00 EST, Height, 103, kg, 04/10/20 11:20:00 EST, Dry Weight Start Date: 04/07/21 Status: Ordered CPAP Machine See Instructions, # [...] 1 each, 11 Refills, 06/02/21 14:01:00 EDT, [facility]/pharmacy #2339, 2 puffs Inhalation 2 times a day, 160, cm, 06/02/21 13:26:00 EDT, Height, 103, kg, 04/10/20 11:20:00 EST, Dry Weight Start Date: 06/02/21 Status: Ordered ferrous sulfate 325 mg oral enteric coated tablet 1, tablet, By Mouth, 2 times a day, # 180 tablet, Refills 1, Route to Pharmacy Electronically, [facility] [address]494, 162.5, cm, 01/29/21 12:38:00 EST, Height, 103, [...] of lasix that day and call your training lead's office for a... Start Date: 06/12/21 Status: Ordered Lipitor 80 mg oral tablet 1 tablet = 80 mg, By Mouth, Daily at bedtime, # 30 tablet, 11 Refills, Maintenance, 06/12/21 9:27:00 EDT, Tablet, [facility], Partial fill upon patient request if the prescription is for a schedule II opioid drug., 157.48, cm, 06/10/21 1... Start Date: 06/12/21 Status: Ordered lisinopril 5 mg oral tablet 5 mg, 1, tablet, By Mouth, Daily, # 30 tablet, Refills 11, Tot. Refills 11, Maintenance, 07/03/21 14:52:00 EDT, Route to Pharmacy Electronically, [facility]/pharmacy #2339, Partial fill upon patient requestif the prescription is for a schedule II opioid kal... Start Date: 07/03/21 Status: Ordered Metoprolol Succinate ER 25 mg oral tablet, extended release 1 tablet, By Mouth, Daily, # 30 tablet, 1 Refills, Maintenance, 06/12/21 9:27:00 EDT, [facility], 157.48, cm, 06/10/21 17:04:00 EDT, Height, 111, kg, 06/10/21 15:06:00 EDT, Dry Weight Start Date: 06/12/21 Status: Ordered morphine 15 mg/8 to 12 hr oral tablet, extended release 1 tablet = 15 mg, By Mouth, Every 8 hours, PRN Pain , Moderate, On substance agreement evaluated every 3 to 6 months, # 84 tablet, 0 Refills, Maintenance, 06/25/21 16:52:00 EDT, [facility]/pharmacy #2339, parital fill upon patient request, [...] 5 Refills, Maintenance, 06/09/21 15:31:00 EDT, Tablet, [facility]/pharmacy #2339, Partial fill upon patient request [...] 0 Refills, Maintenance, 06/12/21 9:27:00 EDT, Tablet, [facility], Partial fill upon patient request if the prescription is for a... Start Date: 06/12/21 Status: Ordered Problem List Condition Effective Dates Status Health Status Inform ant Asthma(Confirmed) Active Atrial fibrillation(Confirmed) Active Back pain(Confirmed) 1 Active Major depression, chronic(Confirmed) Active CHF (congestive heart failur e) (ONFF55-20% on 2019)(Confirmed) Active Continuous opioid dependence(Confirmed) Active Coronary [...]
--- OUTSIDE RECORDS SUMMARY | 2023-08-02 08:32 | XMS_ITS | Continuity of Care Document ---
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 Refills 0, Maintenance, 07/20/20 19:50:00 EDT, [id number] 162.5, cm, 05/15/20 10:27:00 EST, Height, 1... Start Date: 07/20/20 Status: Ordered Ativan 0.5 mg oral tablet 1 tablet = 0.5 mg, By Mouth, 3 times a day, PRN anxiety, # 90 tablet, 2 Refills, Maintenance, 10/14/20 13:39:00 EDT, [facility], 162.5, cm, 05/15/20 10:27:00 EST, Height, 103, kg, 04/10/20 11:20:00 EST, Dry Weight Start Date: 10/14/20 Status: Ordered atorvastatin 40 mg oral tablet 1 tablet = 40 mg, By Mouth, Daily, # 90 tablet, 1 Refills, Maintenance, 11/16/19 10:37:00 EDT, [facility], 156.6, cm, 10/23/19 15:34:00 EDT, Height, Dry Weight Start Date: 11/16/19 Status: Ordered citalopram 40 mg oral tablet 1 tablet, By Mouth, Daily, # 90 tablet, 1 Refills, Maintenance, 10/28/20 14:21:00 EDT, [facility] 162.5, cm, 05/15/20 10:27:00 EST, Height, [...] 0 Refills, Maintenance, 10/29/20 12:51:00 EDT, Tablet, [facility]/pharmacy #2339, parital fill upon patient request, 162.5, cm, 05/15/20 1... Start Date: 10/29/20 Status: Ordered Dulera 100 mcg-5 mcg/inh inhalation aerosol 2 puffs, Inhalation, 2 times a day, # 13 Unknown, 11 Refills, Maintenance, 07/22/20 7:52:00 EDT, [facility], 30, INHALE 2 PUFFS TWICE A DAY, 162.5, cm, 05/15/20 10:27:00 EST, Height, 103, kg, 04/10/20 11:20:00 EST, Dry Weight Start Date: 07/22/20 Status: Ordered ferrous sulfate 325 mg oral enteric coated tablet 1, tablet, By Mouth, 2 times a day, # 180 tablet, Refills 1, Tot. Refills 0, Maintenance, 10/17/20 7:27:00 EDT, Route to Pharmacy Electronically, [facility]164, 162.5, cm, 05/15/20 10:27:00 EST, Height, 103, kg, 04/10/20 11:20:00 EST, Dry Weight Start Date: 10/17/20 Status: Ordered furosemide 40 mg oral tablet 1, tablet, By Mouth, Daily, # 90 tablet, Refills 1, Tot. Refills 0, Maintenance, 09/09/20 14:39:00 EDT, Route to Pharmacy Electronically, [facility] 427[facility], 162.5, cm, 05/15/20 10:27:00 EST, Height, 103, kg, 04/10/20 11:20:00 EST, Dry Weight Start Date: 09/09/20 Status: Ordered lisinopril 10 mg oral tablet 1, tablet, By Mouth, Daily, # 90 tablet, Refills 3, Route to Pharmacy Electronically, [facility] 72999, 162.5, cm, 05/15/20 10:27:00 EST, Height, 103, kg, 04/10/20 11:20:00 EST, Dry Weight Start Date: 11/13/20 Status: Ordered Metoprolol Succinate ER 25 mg oral tablet, extended release 1 tablet, By Mouth, Daily, # 90 tablet, 1 Refills, Maintenance, 07/22/20 7:32:00 EDT, [facility] ST[facility] 50443, 162.5, cm, 05/15/20 10:27:00 EST, Height, 103, kg, 04/10/20 11:20:00 EST, Dry Weight Start Date: 07/22/20 Status: Ordered morphine 15 mg/8 to 12 hr oral tablet, extended release 1 tablet = 15 mg, By Mouth, Every 8 hours, PRN Pain , Moderate, On substance agreement evaluated every 3 to 6 months, # 90 tablet, 0 Refills, Maintenance, 10/29/20 12:51:00 EDT, [facility]/pharmacy #2339, parital fill upon patient request, 162.5, cm, 05/15... Start Date: 10/29/20 Stop Date: 11/28/20 Status: Ordered morphine 30 mg/8 to 12 hr oral tablet, extended release 1 tablet = 30 mg, By Mouth, 3 times a day, OPIATE AGREEMENT evaluated every 3 to 6 months, # 84 tablet, 0 Refills, Maintenance, 10/29/20 12:51:00 EDT, [facility]/pharmacy #2339, may fill for less, 162.5, cm, 05/15/20 10:27:00 EST, Height, 103, kg, 04/10/20... Start Date: 10/29/20 Stop Date: 11/26/20 Status: Ordered Multivitamin Daily, 0 Refills, Maintenance, 05/25/16 13:36:30 Start Date: 05/25/16 Status: Ordered Nicoderm C-Q 21 mg/24 hr transdermal film, extended release 1 patch, Topically, Daily, # 30 patch, 3 Refills, Maintenance, 08/25/19 16:23:00 EDT, Patch, [facility]/pharmacy #2339, 157, cm, 08/25/19 15:55:00 EDT, Height Start Date: 08/25/19 Status: [facility], See Instructions, [...] tablet, 3 Refills, Maintenance, 10/17/20 12:35:00 EDT, [facility] 46140, 162.5, cm, 05/15/20 10:27:00 EST, Height, 103, kg, 04/10/20 11:20:00 EST, Dry Weight Start Date: 10/17/20 Status: Ordered Ventolin HFA 108 mcg/inh inhalation aerosol with adapter 2 puffs, Inhalation, 4 times a day, PRN for wheezing, # 8 Gm, 5 Refills, Maintenance, 06/20/20 15:50:00 EDT, Aerosol, [facility], 162.5, cm, 05/15/20 10:27:00 EST, Height, 103, kg, 04/10/20 11:20:00 EST, Dry Weight Start Date: 06/20/20 Status: Ordered warfarin 5 mg oral tablet 1 tablet, By Mouth, Daily, # 90 tablet, 1 Refills, Maintenance, 09/02/20 8:48:00 EDT, [facility] 165[facility], 162.5, cm, 05/15/20 10:27:00 EST, Height, 103, [...]
--- OUTSIDE RECORDS SUMMARY | 2023-08-02 08:32 | XMS_ITS | Continuity of Care Document ---
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 Refills 3, Physician Stop 08/01/22 9:00:00 EDT, 08/06/21 9:00:00 EDT, Route to Pharmacy Electronically, [facility]/pharmacy #2339, 157.48, cm, 0... Start Date: 08/06/21 Stop Date: 08/01/22 Status: Ordered aspirin 81 mg oral delayed release tablet 81 mg, By Mouth, Daily, # 30 tablet, Refills 11, Tot. Refills 11, Maintenance, 06/12/21 9:27:00 EDT, Route to Pharmacy Electronically, [facility], Partial fill upon patient request if the prescription is for a schedule II opioid drug., 1... Start Date: 06/12/21 Stop Date: 06/07/22 Status: Ordered Ativan 0.5 mg oral tablet 1 tablet = 0.5 mg, By Mouth, Daily at bedtime, PRN as needed for anxiety, # 30 tablet, 1 Refills, Maintenance, 08/06/21 9:02:00 EDT, Tablet, [facility]/pharmacy #2339, Partial fill upon patient request if the prescription is for a schedule II opioid drug., 1... Start Date: 08/06/21 Status: Ordered citalopram 40 mg oral tablet 1 tablet, By Mouth, Daily, for 90 days, # 90 tablet, 3 Refills, Physician Stop 08/01/22 9:01:00 EDT, 08/06/21 9:01:00 EDT, [facility]/pharmacy #2339, 157.48, cm, 08/05/21 14:31:00 [...] 1 each, 11 Refills, 06/02/21 14:01:00 EDT, [facility]/pharmacy #2339, 2 puffs Inhalation 2 times a day, 160, cm, 06/02/21 13:26:00 EDT, Height, 103, kg, 04/10/20 11:20:00 EST, Dry Weight Start Date: 06/02/21 Status: Ordered Entresto 24 mg-26 mg oral tablet 1 tablet, By Mouth, 2 times a day, # 60 tablet, 11 Refills, [facility] STORE 97593, 30, TAKE 1 TABLET BY MOUTH TWICE [...] 08/06/21 9:01:00 EDT, Route to Pharmacy Electronically, [facility]/pharmacy #2339, 157.48, cm, 08/05/21 14:31:00 [...] of lasix that day and 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 Start Date: 06/12/21 Status: Ordered Lipitor 80 mg oral tablet 1 tablet = 80 mg, By Mouth, Daily at bedtime, # 30 tablet, 11 Refills, Maintenance, 06/12/21 9:27:00 EDT, Tablet, [facility], Partial fill upon patient request if the prescription is for a schedule II opioid drug., 157.48, cm, 06/10/21 1... Start Date: 06/12/21 Status: Ordered metoprolol 100 mg oral tablet, extended release 100 mg, 1, tablet, By Mouth, Daily, # 90 tablet, Refills 3, Tot. Refills 3, Maintenance, 09/11/21 12:08:00 EDT, Route to Pharmacy Electronically, [facility]/pharmacy #2339, 157.48, cm, 08/12/21 10:44:00 [...] tablet, 0 Refills, Maintenance, 08/19/21 14:03:00 EDT, [facility]/pharmacy #2339, parital fill upon patient [...] 5 Refills, Maintenance, 06/09/21 15:31:00 EDT, Tablet, [facility]/pharmacy #2339, Partial fill upon patient [...] each, 1 Refills, Maintenance, 08/05/21 15:00:00 EDT, [facility]/pharmacy #2339, Partial fill upon patient request if the prescription is for a schedul... Start Date: 08/05/21 Status: Ordered torsemide 5 mg oral tablet 2 tablet, By Mouth, Daily, # 180 tablet, 1 Refills, [facility] STORE 06830, 157.48, cm, 08/12/21 10:44:00 EDT, Height, 111, kg, 06/10/21 15:06:00 EDT, Dry Weight Start Date: 09/19/21 Status: Ordered warfarin 5 mg oral tablet 0.5 tablet = 2.5 mg, By Mouth, Daily, Goal INR 2-3 Please follow up with your coumadin clinic, # 15tablet, 0 Refills, Maintenance, 06/12/21 9:27:00 EDT, Tablet, [facility], Partial fill upon patient request if the prescription is for a... Start Date: 06/12/21 Status: Ordered Problem List Condition Effective Dates Status Health Status Inform ant Asthma(Confirmed) Active Atrial fibrillation(Confirmed) Active Back pain(Confirmed) 1 Active Major depression, chronic(Confirmed) Active CHF (congestive heart failur e) ([id number]% on 2019)(Confirmed) Active Continuous opioid dependence(Confirmed) Active [...]
--- OUTSIDE RECORDS SUMMARY | 2023-08-02 08:32 | XMS_ITS | Continuity of Care Document ---
Author Organization [facility] Address [address] [place] [id number]- Care Team Providers Care Insurance Follow Up Representative Name Role Phone Jose Martinez MD Primary Care Physician [phone] [place] [facility] [place] [facility] [address] [place], [place] [id number]- Attending Physician: Ruth Kiser MD Allergies, Adverse Reactions, Alerts Substance Reaction [...] H1N1, inactive(oldterm) 7 01/21/09 Given 1Result Comment: [facility]:[id number] 2Result Comment: [01/19/2018] [id number] 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 Refills 3, Physician Stop 08/01/22 9:00:00 EDT, 08/06/21 9:00:00 EDT, Route to Pharmacy Electronically, [facility]/pharmacy #2339, 157.48, cm, 0... Start Date: 08/06/21 Stop Date: 08/01/22 Status: Ordered aspirin 81 mg oral delayed release tablet 81 mg, By Mouth, Daily, # 30 tablet, Refills 11, Tot. Refills 11, Maintenance, 06/12/21 9:27:00 EDT, Route to Pharmacy Electronically, [facility], Partial fill upon patient request if the prescription is for a schedule II opioid drug., 1... Start Date: 06/12/21 Stop Date: 06/07/22 Status: Ordered Ativan 0.5 mg oral tablet 1 tablet = 0.5 mg, By Mouth, Daily at bedtime, PRN as needed for anxiety, # 30 tablet, 1 Refills, Maintenance, 08/06/21 9:02:00 EDT, Tablet, [facility]/pharmacy #2339, Partial fill upon patient request if the prescription is for a schedule II opioid drug., 1... Start Date: 08/06/21 Status: Ordered citalopram 40 mg oral tablet 1 tablet, By Mouth, Daily, for 90 days, # 90 tablet, 3 Refills, Physician Stop 08/01/22 9:01:00 EDT, 08/06/21 9:01:00 EDT, [facility]/pharmacy #2339, 157.48, cm, 08/05/21 14:31:00 EDT, Height, [...] each, 11 Refills, 06/02/21 14:01:00 EDT, [facility]/pharmacy #2339, 2 puffs Inhalation 2 times a day, 160, cm, 06/02/21 13:26:00 EDT, Height, 103, kg, 04/10/20 11:20:00 EST, Dry Weight Start Date: 06/02/21 Status: Ordered Entresto 24 mg-26 mg oral tablet 1 tablet, By Mouth, 2 times a day, # 60 tablet, 11 Refills, [facility]ORE 01810, 30, TAKE 1 TABLET BY MOUTH TWICE [...] 9:01:00 EDT, Route to Pharmacy Electronically, [facility]/pharmacy #2339, 157.48, cm, 08/05/21 14:31:00 EDT, Height, [...] of lasix that day and call your manager 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 Start Date: 06/12/21 Status: Ordered Lipitor 80 mg oral tablet 1 tablet = 80 mg, By Mouth, Daily at bedtime, # 30 tablet, 11 Refills, Maintenance, 06/12/21 9:27:00 EDT, Tablet, [facility], Partial fill upon patient request if the prescription is for a schedule II opioid drug., 157.48, cm, 06/10/21 1... Start Date: 06/12/21 Status: Ordered metoprolol 100 mg oral tablet, extended release 100 mg, 1, tablet, By Mouth, Daily, # 90 tablet, Refills 3, Tot. Refills 3, Maintenance, 09/11/21 12:08:00 EDT, Route to Pharmacy Electronically, [facility]/pharmacy #2339, 157.48, cm, 08/12/21 10:44:00 EDT, Height, [...] 0 Refills, Maintenance, 08/19/21 14:03:00 EDT, [facility]/pharmacy #2339, parital fill upon patient request, 157.48, [...] 5 Refills, Maintenance, 06/09/21 15:31:00 EDT, Tablet, [facility], Partial fill upon patient [...] each, 1 Refills, Maintenance, 08/05/21 15:00:00 EDT, [facility], Partial fill upon patient request if the prescription is for a schedul... Start Date: 08/05/21 Status: Ordered torsemide 5 mg oral tablet 2 tablet, By Mouth, Daily, # 180 tablet, 1 Refills, [facility], 157.48, cm, 08/12/21 10:44:00 EDT, Height, 111, kg, 06/10/21 15:06:00 EDT, Dry Weight Start Date: 09/19/21 Status: Ordered warfarin 5 mg oral tablet 0.5 tablet = 2.5 mg, By Mouth, Daily, Goal INR 2-3 Please follow up with your coumadin clinic, # 15tablet, 0 Refills, Maintenance, 06/12/21 9:27:00 EDT, Tablet, [facility], Partial fill upon patient request if the prescription is for a... Start Date: 06/12/21 Status: Ordered Problem List Condition Effective Dates Status Health Status Inform ant Asthma(Confirmed) Active Atrial fibrillation(Confirmed) Active Back pain(Confirmed) 1 Active Major depression, chronic(Confirmed) Active CHF (congestive heart failur e) (PTJP36-79% on 2019)(Confirmed) Active Continuous opioid dependence(Confirmed) Active [...]
--- OUTSIDE RECORDS SUMMARY | 2023-08-02 08:32 | XMS_ITS | Continuity of Care Document ---
Author Organization [facility] Address [address] [place] [id number] Care Team Providers Care Operating Room Assistant Name Role Phone Jose Martinez MD Primary Care Physician [place] [facility] [place] [facility] [address] [place] [address]- [facility] Attending Physician: Chiki BENDER, Farheen Stanford Admitting Physician: Chiki BENDER, Farheen Stanford Referring Physician: Jose Martinez MD Allergies, Adverse [...] inactive(oldterm) 6 01/21/09 Given 1Result Comment: [01/19/2018] [id number] 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 Refills 11, Maintenance, 07/31/19 14:19:00 EDT, [facility], cm, 07/31/19 13:53:00 EDT, Height, 1... Start Date: 07/31/19 Status: Ordered amLODIPine 5 mg oral tablet 5 mg, 1, tablet, By Mouth, Daily, # 90 tablet, Refills 0, Tot. Refills 0, Maintenance, 05/19/19 14:39:00 EST, [facility], cm, 04/21/19 10:26:00 EST, Height, 104, kg, 08/03/17 12:54:00 EDT, Dry Weight Start Date: 05/19/19 Stop Date: 08/17/19 Status: Ordered amLODIPine 5 mg oral tablet 1 tablet = 5 mg, By Mouth, Daily, # 90 tablet, 1 Refills, Maintenance, 10/12/19 11:34:00 EDT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 Refills 0, Maintenance, 08/04/17 9:05:52 EDT, Route to Pharmacy Electronically, [id number], [facility] 3 Start Date: 08/04/17 Status: Ordered Ativan 0.5 mg oral tablet 1 tablet = 0.5 mg, By Mouth, 3 times a day, PRN anxiety, # 90 tablet, 2 Refills, Maintenance, 07/24/19 17:04:00 EDT, Tablet, [facility]/pharmacy #2339, 157, cm, 04/21/19 10:26:00 EST, Height, 104, kg, 08/03/17 12:54:00 EDT, Dry Weight Start Date: 07/24/19 Status: Ordered atorvastatin 40 mg oral tablet 1 tablet = 40 mg, By Mouth, Daily, # 90 tablet, 1 Refills, Maintenance, 11/16/19 10:37:00 EDT, Tablet, [facility]/pharmacy #2339, 156.6, cm, 10/23/19 15:34:00 EDT, Height, Dry Weight Start Date: 11/16/19 Status: Ordered citalopram 40 mg oral tablet 1 tablet, By Mouth, Daily, # 90 tablet, 1 Refills, Maintenance, 10/03/19 13:25:00 EDT, [facility], 157, cm, 08/25/19 15:55:00 EDT, Height Start [...] 0 Refills, Maintenance, 11/15/19 16:47:00 EDT, Tablet, [facility]/pharmacy #2339, parital fill upon patient request, 156.6, [...] tablet, 0 Refills, Maintenance, 11/15/19 16:47:00 EDT, [facility], parital fill upon patient request, 156.6, cm, 10/22... Start Date: 11/15/19 Stop Date: 12/15/19 Status: Ordered morphine 30 mg/8 to 12 hr oral tablet, extended release 1 tablet = 30 mg, By Mouth, 3 times a day, OPIATE AGREEMENT evaluated every 3 to 6 months, # 84 tablet, 0 Refills, Maintenance, 11/15/19 16:47:00 EDT, [facility], may fill for less, 156.6, cm, [...] 3 Refills, Maintenance, 08/25/19 16:23:00 EDT, Patch, [facility], 157, cm, 08/25/19 15:55:00 EDT, Height Start Date: 08/25/19 Status: Ordered [facility] use with inhaler [facility] use with inhaler, See Instructions, # [...] 14:55:12 EDT, Aerosol, Route to Pharmacy Electronically, [id number], [facility]/pharmacy #2339 Start Date: 10/28/18 Status: Ordered [...] 10/23/19 15:22:00 EDT, Route to Pharmacy Electronically, [facility]/pharmacy #2339, 156.5, cm, 10/20/19 16:01:00 EDT, Height Start Date: 10/23/19 Status: Ordered torsemide 5 mg oral tablet 1 tablet = 5 mg, By Mouth, Daily, # 30 tablet, 11 Refills, Maintenance, 10/20/19 16:34:00 EDT, [facility]/pharmacy #2339, 156.5, cm, 10/20/19 16:01:00 EDT, [...]
--- OUTSIDE RECORDS SUMMARY | 2023-08-02 08:32 | XMS_ITS | Continuity of Care Document ---
Author Organization [facility] Address [address] [place] [id number]- Care Team Providers Care Braille Translator Name Role Phone Jose Martinez MD Primary Care Physician Encounter [facility] Date(s): 05/12/22 - 05/19/22 [facility] [address] [place] [id number]- Encounter Diagnosis Back pain(Discharge Diagnosis) - 05/12/22 CHF (congestive heart failure) ([id number]% on echo 2019)(Discharge Diagnosis) - 05/12/22 Coronary artery disease(Discharge Diagnosis) - 05/12/22 Hypertension(Discharge Diagnosis) - 05/12/22 Hyperlipidemia(Discharge Diagnosis) - 05/12/22 Severe obesity(Discharge Diagnosis) - 05/12/22 Cardiomyopathy(Discharge Diagnosis) - 05/12/22 Attending Physician: Ruth Kiser MD Referring Physician: Jose Martinez MD Allergies, Adverse Reactions, Alerts Substance Reaction Severity Status Nembutal Hyperventalating Active Cordran Tape BLISTERS Active traZODone daytime gogginess Active Chantix Active [...] Given 1Result Comment: [facility]:[id number] 2Result Comment: [01/19/2018] [id number] 3Admin Note: Mahindra 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 4Admin Note: Mahindra 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 5Admin Note: [employer] [facility] 6Admin Note: [employer] 7Admin Note: Novaritis Medications Albuterol (Eqv-ProAir HFA) 2 puffs, Inhalation, Every 6 hours, 0 Refills, Maintenance, 10/13/21 13:54:00 EDT, Partial fill upon patient request if the prescription is for a schedule II opioid drug. Start Date: 10/13/21 Status: Ordered Aldactone 25 mg oral tablet See Instructions, 0.5 tablet By Mouth Daily, # 15 tablet, Refills 3, Tot. Refills 3, Maintenance, 05/12/22 17:09:00 EST, Instructions Replace Required Details, Route to Pharmacy Electronically, [facility]/pharmacy #[id number], Partial fill upon patient request if... Start Date: 05/12/22 Status: Ordered amLODIPine 10 mg oral tablet 1 tablet, By Mouth, Daily, # 90 tablet, 3 Refills, Maintenance, 02/23/22 8:50:00 EST, [facility] STORE [id number], 157.48, cm, 01/20/22 14:40:00 EDT, Height, 111, kg, 06/10/21 15:06:00 EDT, Dry Weight Start Date: 02/23/22 Status: Ordered ARIPiprazole 5 mg oral tablet 1, tablet, By Mouth, Daily, for 90 days, TO BE COMBINED WITH THE CITALOPRAM THERAPY, # 90 tablet, Refills 3, Tot. Refills 3, Physician Stop 08/01/22 9:00:00 EDT, 08/06/21 9:00:00 EDT, Route to Pharmacy Electronically, [facility]/pharmacy #[id number], 157.48, cm, 0... Start Date: 08/06/21 Stop Date: 08/01/22 Status: Ordered aspirin 81 mg oral delayed release tablet 81 mg, By Mouth, Daily, # 30 tablet, Refills 11, Tot. Refills 11, Maintenance, 06/12/21 9:27:00 EDT, Route to Pharmacy Electronically, [facility], Partial fill upon patient request if the prescription is for a schedule II opioid drug., 1... Start Date: 06/12/21 Stop Date: 06/07/22 Status: Ordered Ativan 0.5 mg oral tablet 1 tablet = 0.5 mg, By Mouth, Daily at bedtime, PRN as needed for anxiety, # 30 tablet, 3 Refills, Maintenance, 01/15/22 13:14:00 EDT, Tablet, [facility]/pharmacy #[id number], Partial fill upon patient request if the prescription is for a schedule II opioid drug.,... Start Date: 01/15/22 Status: Ordered citalopram 40 mg oral tablet 1 tablet, By Mouth, Daily, for 90 days, # 90 tablet, 3 Refills, Physician Stop 08/01/22 9:01:00 EDT, 08/06/21 9:01:00 EDT, [facility]/pharmacy #[id number], 157.48, cm, 08/05/21 14:31:00 EDT, [...] DAY, # 90 tablet, 1 Refills, [facility] STORE [id number], 90, TAKE 1 TABLET BY MOUTH EVERY [...] each, 11 Refills, 06/02/21 14:01:00 EDT, [facility]/pharmacy #[id number], 2 puffs Inhalation 2 times a day, 160, cm, 06/02/21 13:26:00 EDT, Height, 103, kg, 04/10/20 11:20:00 EST, Dry Weight Start Date: 06/02/21 Status: Ordered Entresto 24 mg-26 mg oral tablet 1 tablet, By Mouth, 2 times a day, # 60 tablet, 11 Refills, [facility] [id number], 30, TAKE 1 TABLET BY MOUTH TWICE [...] 08/06/21 9:01:00 EDT, Route to Pharmacy Electronically, [facility]/pharmacy #[id number], 157.48, cm, 08/05/21 14:31:00 EDT, Height, 111,... Start Date: 08/06/21 Stop Date: 08/01/22 Status: Ordered furosemide 20 mg oral tablet 1, tablet, By Mouth, Daily, # 30 tablet, Refills 5, Maintenance, 12/30/21 15:04:00 EDT, Route to Pharmacy Electronically, [facility] STORE [id number], 157.48, cm, 11/04/21 11:33:00 EDT, Height, 111, kg, 06/10/2214:06:00 EDT, Dry Weight Start Date: 12/30/21 Status: Ordered Lipitor 80 mg oral tablet 1 tablet = 80 mg, By Mouth, Daily at bedtime, # 30 tablet, 11 Refills, Maintenance, 06/12/21 9:27:00 EDT, Tablet, [facility], Partial fill upon patient request if the prescription is for a schedule II opioid drug., 157.48, cm, 06/10/21 1... Start Date: 06/12/21 Status: Ordered metoprolol 100 mg oral tablet, extended release 150 mg, 1.5, tablet, By Mouth, Daily, # 45 tablet, Refills 6, Tot. Refills 6, Maintenance, 01/20/2214:50:00 EDT, Route to Pharmacy Electronically, [facility]/pharmacy #[id number], Partial fill upon patient request if the prescription is for a schedule II opioid d... Start Date: 01/20/22 Status: Ordered rOPINIRole 0.25 mg oral tablet See Instructions, TAJE 1 TABLET BY MOUTH AT BEDTIME FOR 1 WEEK THEN INCRAESE TO 2 AT NIGHT FOR 1 WEEK THEN 3 EVERY NIG, # 90 tablet, 5 Refills, Maintenance, 02/23/22 8:50:00 EST, [facility] STORE [id number], 157.48, cm, 01/20/22 14:40:00 EDT, Height, 111, kg, 03/... Start Date: 02/23/22 Status: Ordered warfarin 5 mg oral tablet See Instructions, Take 1/2 to 1 tablet By Mouth Daily as directed by coumadin clinic, # 90 tablet, 2 Refills, Maintenance, 05/12/22 13:52:00 EST, Tablet, [facility]/pharmacy #[id number], Partial fill upon patientrequest if the prescription is for a schedule II... Start Date: 05/12/22 Status: Ordered Problem List Condition Confirmation Course Effective Dates Status H ealth Status Informant Asthma Confirmed Active Atrial fibrillation Confirmed Active Back pain 1 Confirmed Active Cardiomyopathy Confirmed Active Major depression, chronic Confirmed Active CHF (congestive heart failure) (SIGS28-44% on echo 2019) Confirmed Active Continuous opioid [...] Effective Dates Health Status Clinical Service Informant Back pain Discharge Diagnosis 05/12/22 CHF (congestive heart failure) (UETB06-04% on echo 2019) Discharge Diagnosis 05/12/22 Coronary artery disease Discharge Diagnosis 05/12/22 Hypertension Discharge Diagnosis 05/12/22 Hyperlipidemia Discharge Diagnosis 05/12/22 Severe obesity Discharge Diagnosis 05/12/22 Cardiomyopathy Discharge Diagnosis 05/12/22 Vital Signs Most recent to oldest [Reference Range]: 1 2 Height 157.48 cm (05/13/22 12:06 PM) 157.48 cm (05/12/22 4:41 PM) Weight 119 kg (05/13/22 12:06 PM) 119 kg (05/12/22 4:41 PM) Oxygen Saturation [94-100 %] 99 % (05/12/22 4:41 PM) Pulse Rate [55-90 bpm] 73 bpm (05/12/22 4:41 PM) Body Mass Index [18.5-24.99 kg/m2] 47.98 kg/m2 *>HHI* (05/12/22 4:41 PM) Blood Pressure [90-138/55-84 mm Hg] 116/ 82mm Hg (05/12/22 4:41 PM) Blood pressure sites Arm, left (05/12/22 4:41 PM) Social History Social History Type Response Smoking Status Former smoker, quit more than 30 days ago; Other: quit June 2021; entered on: 05/18/22 Sex Female Cardiology Outpatient Note * Margi HICKEY, Ruth Campbell: PERFORM Event Display: Cardiology Note Office Authored Date: [id number] Patient: ??ELYSSA ALFREDO ? Age:??66 Years?Sex:??Female?:??1955?? Indication for Consult FOLLOW UP CARE History of Present Illness/Interval History Past visit: This is a 65-year-old female [...] obesity status post lap band surgery in 2006, hypertension hyperlipidemia and chronic??back pain??as well as [...] to our last visit,??she was readmitted to [facility] and was noted to have orthostasis??about 2 [...] has not had recurrence of syncope??ororthostatic symptoms. ?? Current visit: She has no cardiovascular complaints.?? She??has been feeling well. ??She??attended cardiac rehab.?? I switch her to Entresto, she tolerated this though started to have elevated??potassium levels???repeat chemistry showed this at??improved.?? I held off on adding Aldactone for this reason.?? She is using Lasix as needed now.?TTE [...] be secondary to coronary spasm/SCAD, LVEDP 10-13. Physical Exam Vitals & Measurements WY:??73?? BP:??116/82?? SpO2:??99%?? HT:??157.48??cm?? WT:??119??kg?? BMI:??47.98?? Weight lb/oz: 262 lb 6 oz HEENT: EOMI obese neck: JVD 4cm Pulm: CTAB Cardiac: RRR no m/r/g GI: soft +BS EXT:??trace edema Neuro:??grossly nonfocal Skin:??warm and dry Psych: alert and coop Assessment/Plan 1.??Back pain Ordered: Echo Complete ?? 2.??CHF (congestive heart failure) (JDLS99-86% on echo 2019) Ordered: Echo Complete ?? 3.??Coronary artery disease Ordered: Echo Complete ?? 4.??Hypertension Ordered: Echo Complete ?? 5.??Hyperlipidemia Ordered: Echo Complete ?? 6.??Severe obesity ?? 7.??Cardiomyopathy ?? Orders: Spironolactone, See Instructions, 0.5 tablet By Mouth Daily, # 15 tablet, Refills 3, Tot. Refills 3, Maintenance, 05/12/22 17:09:00 EST, Instructions Replace Required Details, Route to Pharmacy Electronically, [facility]/pharmacy #[id number], Partial fill upon patient request if... This is a 65-year-old female for follow up.?? She previously had seen Shaneka Crawford in cardiologyclinic??about a year ago.?? She is described as having a cardiomyopathy with an EF of 35 to 40%.?? She had an admission??at the time of her diagnosis of cardiomyopathy for??shortness of breath??and fatigue and was noted to be severely anemic.?? As part of that evaluation she had her echocardiogram showing depressed LV function.??Her??repeat cbc showed Hct 33. ??Her torsemide dose was increased from 5 to 10 mg, her NT proBNP has been anywhere from 700-1800.?Subsequent to our last telehealth visit she was admitted??early May to [facility] with??acute CHF and an NSTEMI, her cardiac catheterization showed??99% lesions in her RPL and RPDA, these were medically managed.?Her EDP at that time??was normal after diuresis. ??She was hypertensive.?Interestingly??amlodipine wasincreased due to concern for??vasospasm as well as hypertension???she then had admission 2 weeks lat er??with orthostasis and this medication was discontinued. ??Her EF was 30 to 40%. ??Her coronary anatomy findings would not explain her cardiomyopathy, this is likely nonischemic.?She is on Lasixnow and using this prn.?She??has stopped smoking cigarettes.?She denies PND, orthopnea, edema. ??Continued??medication titration??for guideline directed medical therapy. ??Importance of both smoking cessation as well as weight loss reviewed.?We discussed the etiologies of cardiomyopathy including nonischemic and ischemic.?We discussed management and work-up as appropriate.?In terms of her atrial fibrillation??looking back through the chart she had a Holter monitor in 2019 which showed??persistent atrial fibrillation. ??I do not think this is a contributor to her volume overload or her cardiomyopathy based on??those findings and??EKGs. ??Her presentation??to [facility] when she was diagnosed with a cardiomyopathy??notable for rate controlled A. fib. ??I do not think??that she would maintain sinus rhythm??and I do not think that the loss of atrial kick is a contributor in her??persistent symptoms or past??volume overload.?She tolerated increasing Toprol XL to 150 mg p.o. daily. ??Her past??potassium had been??borderline elevated, most recently in March it was 4.6 and her creatinine is normal. ??I will try 12-1/2 mg of Aldactone, she will have a nurse visit blood pressure check in 1 month??and??chem??7 checked in 1 to 2 weeks,??she should avoid?? potassium rich foods.?She has no CHF on exam. ??She has no significant valvular disease. ??Certainly tobacco cessation is imperative, I congratulated her on stopping smoking and encouraged her to con tinue??cessation. ??Morbid obesity, sleep apnea??along with other medical problems may be contributors for her symptoms as well as cardiomyopathy.?She denies any palpitations,??presyncope or syncope.?She is on Coumadin.??She is on atorvastatin 40 mg p.o. daily which she should continue.?I will order echocardiogram as well and has been 1 year since her last echo. Allergies Chantix Cordran Tape??(BLISTERS) Nembutal??(Hyperventalating) traZODone??(daytime gogginess) Home Medications Albuterol (Eqv-ProAir HFA), 2 puffs, Inhalation, Every 6 hours Aldactone 25 mg oral tablet, See Instructions, 3 refills, 0.5 tablet By Mouth Daily amLODIPine 10 mg oral tablet, 1 tablet, By Mouth, Daily ARIPiprazole 5 mg oral tablet, 1 tablet, By Mouth, Daily, 3 refills, TO BE COMBINED WITH THE CITALOPRAM THERAPY aspirin 81 mg oral delayed release tablet, 81 mg, By Mouth, Daily, 11 refills Ativan 0.5 mg oral tablet, 0.5 mg= 1 tablet, By Mouth, Daily at bedtime, PRN, 3 refills citalopram 40 mg oral tablet, 1 tablet, By Mouth, Daily, 3 refills CPAP Machine, See Instructions, AutoCPAP 6-12 cm H20, use Daily when sleeping 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 Daily Erica oral tablet, See Instructions, TAKE 1 TABLET BY MOUTH EVERY DAY DAILY ERICA TABLET, 1 tablet, By Mouth, Daily Dulera 100 mcg-5 mcg/inh inhalation aerosol, 2 puffs, Inhalation, 2 times a day, 11 refills Entresto 24 mg-26 mg oral tablet, 1 tablet, By Mouth, 2 times a day ferrous sulfate 325 mg oral enteric coated tablet, 1 tablet, By Mouth, 2 times a day, 3 refills furosemide 20 mg oral tablet, 1 tablet, By Mouth, Daily Lipitor 80 mg oral tablet, 80 mg= 1 tablet, By Mouth, Daily at bedtime, 11 refills metoprolol 100 mg oral tablet, extended release, 150 mg= 1.5 tablet, By Mouth, Daily, 6 refills morphine 15 mg/8 to 12 hr oral tablet, extended release, 15 mg= 1 tablet, By Mouth, Every 8 hours, PRN, On substance agreement evaluated every 3 to 6 months morphine 15 mg/8 to 12 hr oral tablet, extended release, 15 mg= 1 tablet, By Mouth, Every 8 hours, PRN, On substance agreement evaluated every 3 to 6 months morphine 15 mg/8 to 12 hr oral tablet, extended release, 15 mg= 1 tablet, By Mouth, Every 12 hours,PRN rOPINIRole 0.25 mg oral tablet, See Instructions, TAJE 1 TABLET BY MOUTH AT BEDTIME FOR 1 WEEK THENINCRAESE TO 2 AT NIGHT FOR 1 WEEK THEN 3 EVERY NIG warfarin 5 mg oral tablet, See Instructions, 2 refills, Take 1/2 to 1 tablet By Mouth Daily as directed by coumadin clinic Lab Results Cardiology Labs WBC: 8.9 k/mm3 (02/05/22) RBC:??4.04 m/mm3??Low (02/05/22) Hgb: 12 Gm/dL (02/05/22) Hct: 38.1 % (02/05/22) MCV: 94.3 femtoliters (02/05/22) MCH: 29.7 pg (02/05/22) MCHC:??31.5 g/dL??Low (02/05/22) Platelet Count: 170 k/mm3 (02/05/22) RDW-SD:??52.8 femtoliters??High (02/05/22) Nucleated RBC (Automated): 0 #/100 WBC'S (02/05/22) Abs. Neut: 7 k/mm3 (02/05/22) Abs. Lymph: 1.3 k/mm3 (02/05/22) Abs. [place]: 0.6 k/mm3 (02/05/22) Abs. Eo: 0 k/mm3 (02/05/22) Abs. Baso: 0 k/mm3 (02/05/22) Neut %:??78.6 %??High (02/05/22) [place] %: 6.2 % (02/05/22) Eos %: 0.3 % (02/05/22) Baso %: 0.3 % (02/05/22) Imm Gran: 0.2 % (02/05/22) Abs. Imm Gran: 0 k/mm3 (02/05/22) INR:??1.9??High (05/05/22) Protime (PT):??19.8 seconds??High (05/05/22) APTT: 30.2 seconds (02/05/22) Sodium: 141 mmol/L (03/26/22) Potassium: 4.6 mmol/L (03/26/22) Chloride: 105 mmol/L (03/26/22) Bicarbonate Level: 27 mmol/L (03/26/22) Glucose Level: 77 mg/dL (03/26/22) Hemoglobin A1C (Monitoring): 5.1 % (05/28/21) BUN: 8 mg/dL (03/26/22) Creatinine-Blood: 0.7 mg/dL (03/26/22) Calcium: 8.9 mg/dL (03/26/22) Protein, Total: 6.6 Gm/dL (10/24/21) Albumin: 4.1 Gm/dL (10/24/21) Alkaline Phosphatase:??105 units/L??High (10/24/21) AST (SGOT): 19 units/L (10/24/21) ALT (SGPT): 15 units/L (10/24/21) Bilirubin, Total: 0.5 mg/dL (10/24/21) Troponin T Quant: 0.04 ng/mL (10/24/21) Nt-Probnp:??483 pg/mL??High (03/26/22) Cholesterol: 173 mg/dL (05/26/21) Triglycerides: 133 mg/dL (05/26/21) HDL Cholesterol: 43 mg/dL (05/26/21) LDL Cholesterol: 103 mg/dL (05/26/21) Non HDL Cholesterol: 130 mg/dL (05/26/21) TSH:??9.39 uIU/mL??High (06/09/21) Free T4: 0.8 ng/dL (06/11/21) Diagnostic Impression ECG ECG 12-Lead ?? 15:22:57 Please click on pdf link to open report ?? Signed By: Jonathan HICKEY, Will Krishnan ?? ECG 12-Lead ?? 15:22:57 Ventricular Rate: 61 BPM Atrial Rate: 326 BPM QRS Duration: 82 ms Q-T Interval: 430 ms QTC Calculation(Bazett): 432 ms R [place]: -1 degrees T [place]: -19 degrees Atrial fibrillation flutter with variable A-V block Abnormal ECG When compared with ECG of 24-OCT-2021 12:08, No significant change ?? Confirmed by WILL LÓPEZ ([id number]) on 10/25/2021 3:08:53 PM ?? Deming: WILL LÓPEZ ?? Signed By: Will López MD Echo Echocardiogram - Complete ?? 13:11:25 [...] comparison difficult. ?? Signature ?? Signed By: Nima HICKEY, Reginald Problem List/Past Medical History Ongoing Asthma Atrial fibrillation Back pain Cardiomyopathy CHF (congestive heart failure) (GPFN19-65% on echo 2019) Cholecystectomy Continuous opioid dependence Coronary artery disease Generalized anxiety disorder Hip pain Hip replacement Hyperlipidemia Hypertension Major depression, chronic OA - Osteoarthritis Obesity (BMI 30-39.9) Opiate analgesic contract exists PRINCESS - Obstructive sleep apnea Patient has healthcare proxy - 10/02/11 Severe obesity Tobacco dependence Historical No qualifying data Procedure/Surgical History Ganglion cyst of right dorsal wrist Tubal ligation Hip replacement Gastric bypass Social History Alcohol Use: Never., 08/25/2019 Employment/School Status: Disabled., 08/25/2019 Exercise Regular exercise: Yes. Exercise frequency: 3-4 times/week. Exercise type: Walking., 08/25/2019 Home/Environment Living situation: Home/Independent. Lives with: Siblings., 08/25/2019 Nutrition/Health Diet: Regular., 08/25/2019 Sexual Sexually involved in last 6 months: No., 08/25/2019 Substance Abuse Use: Never., 08/25/2019 Tobacco Use: 5-9 cigarettes (between 1/4 to 1/2 pack)/day in last 30 days. Other: Started at 23 years old.,01/18/2020 Use: Current every day smoker. Tobacco user in household: No., 06/05/2013 Family History Mother (): CAD - Coronary artery disease; Congestive heart failure; Diabetes mellitus type II; Hypertension Mat. Grandmother: CAD - Coronary artery disease; Hypertension; Stroke Mat. Grandfather: Cancer of colon Daughter: Congestive heart failure Patient Care team information Care Team Personnel Name: Radha Villela Position: [facility] RN Supv Member Role: Primary Care Nurse Name: Nichole Coates RN Position: [facility] SN RN Member Role: Primary Care Nurse Name: Ksenia Herzog RN Position: [facility] RN Member Role: Primary Care Nurse Name: Leatha Walsh RN Position: [facility] RN Member Role: Primary Care Nurse Name: Milagro Sims RN Position: [facility] RN Member Role: Primary Care Nurse Name: Jo Ann Stubbs PharmD Position: [facility] Associate Professional Member Role: [employer] Provider Address: Address: [address] [place] [id number]- Name: Anne Gonzalez RN Position: [facility] RN Member Role: Primary Care Nurse Name: Mckayla Wilcox RN Position: [facility] SN RN Member Role: Primary Care Nurse Name: Simin Chen RN Position: [facility] RN Member Role: Primary Care Nurse Name: Jose Martinez MD Position: [facility] Primary Care Physician Member Role: PCP Address: Address: [address] [place] [id number]- [place] Name: Aleks Merchant RN Position: [facility] RN Member Role: Primary Care Nurse Name: Genet Bowman RN Position: [facility] SN RN Member Role: Primary Care Nurse Name: Ilana Burns RN Position: [facility] RN Member Role: Primary Care Nurse Care Team Related Persons Name: TUTU ROWLAND Address: home [address] [place] [id number] Name: JANET CONNOR Address: home [address] [place] [address]
--- OUTSIDE RECORDS SUMMARY | 2023-08-02 08:33 | XMS_ITS | Continuity of Care Document ---
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 Refills 11, Maintenance, 07/31/19 14:19:00 EDT, [id number], cm, 07/31/19 13:53:00 EDT, Height, 1... Start Date: 07/31/19 Status: Ordered amLODIPine 5 mg oral tablet 5 mg, 1, tablet, By Mouth, Daily, # 90 tablet, Refills 0, Tot. 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 Refills 0, Maintenance, 08/04/17 9:05:52 EDT, Route to Pharmacy Electronically, [id number], [facility] Start Date: 08/04/17 Status: Ordered Ativan 0.5 mg oral tablet 1 tablet = 0.5 mg, By Mouth, 3 times a day, PRN anxiety, # 90 tablet, 2 Refills, Maintenance, 01/11/20 13:48:00 EDT, Tablet, [facility]/pharmacy #2339, 156.6, cm, 01/09/20 11:41:00 EDT, Height, Dry Weight Start Date: 01/11/20 Status: Ordered atorvastatin 40 mg oral tablet 1 tablet = 40 mg, By Mouth, Daily, # 90 tablet, 1 Refills, Maintenance, 11/16/19 10:37:00 EDT, Tablet, [facility]/pharmacy #2339, 156.6, cm, 10/23/19 15:34:00 EDT, Height, Dry Weight Start Date: 11/16/19 Status: Ordered citalopram 40 mg oral tablet 1 tablet, By Mouth, Daily, # 90 tablet, 1 Refills, Maintenance, 10/03/19 13:25:00 EDT, [facility] STORE 23594, 157, cm, 08/25/19 15:55:00 EDT, Height Start [...] months, # 28 tablet, 0 Refills, Maintenance, 12/21/19 11:53:00 EDT, Tablet, [facility]/pharmacy #[id number], parital fill upon patient request, 156.6, cm, 10/23/19 1... Start Date: 12/21/19 Status: Ordered Dulera 100 mcg-5 mcg/inh inhalation [...] months, # 90 tablet, 0 Refills, Maintenance, 01/11/20 13:48:00 EDT, [facility]/pharmacy #[id number], parital fill upon patient request, 156.6, cm, 01/08... Start Date: 01/11/20 Stop Date: 02/10/20 Status: Ordered morphine 30 mg/8 to 12 hr oral tablet, extended release 1 tablet = 30 mg, By Mouth, 3 times a day, OPIATE AGREEMENT evaluated every 3 to 6 months, # 84 tablet, 0 Refills, Maintenance, 12/21/19 11:53:00 EDT, [facility]/pharmacy #2339, may fill for less, 156.6, cm, 10/23/19 15:34:00 EDT, Height, Dry Weight Start Date: 12/21/19 Stop Date: 01/18/20 Status: Ordered Multivitamin Daily, 0 Refills, Maintenance, 05/25/16 13:36:30 Start Date: 05/25/16 Status: Ordered Narcan 4 mg/0.1 mL nasal spray See Instructions, use for signs of respiratory distress may repeat every 2 to 3 minutes until patient responds, # 2 each, 0 Refills, Soft Stop, 05/10/19 16:02:00 EST, [facility]/pharmacy #[id number], 157, cm, 04/21/19 10:26:00 EST, Height, 104, kg, 08/03/17 12:... Start Date: 05/10/19 Status: Ordered Nicoderm C-Q 21 mg/24 hr transdermal film, extended release 1 patch, Topically, Daily, # 30 patch, 3 Refills, Maintenance, 08/25/19 16:23:00 EDT, Patch, [facility]/pharmacy #2339, 157, cm, 08/25/19 15:55:00 EDT, Height Start Date: 08/25/19 Status: Ordered [facility] use with inhaler [facility] use with inhaler, See [...] 10/23/19 15:22:00 EDT, Route to Pharmacy Electronically, [facility]/pharmacy #2339, 156.5, cm, 10/20/19 16:01:00 EDT, Height Start Date: 10/23/19 Status: Ordered torsemide 5 mg oral tablet 1 tablet = 5 mg, By Mouth, Daily, # 30 tablet, 11 Refills, Maintenance, 10/20/19 16:34:00 EDT, [facility]/pharmacy #2339, 156.5, cm, 10/20/19 16:01:00 EDT, Height Start Date: 10/20/19 Status: Ordered Ventolin HFA 108 mcg/inh inhalation aerosol with adapter 2 puffs, Inhalation, 4 times a day, PRN for wheezing, # 8 Gm, 5 Refills, Maintenance, 12/20/19 11:27:00 EDT, Aerosol, [facility]/pharmacy #2339, 156.6, cm, 10/23/19 15:34:00 [...]
--- OUTSIDE RECORDS SUMMARY | 2023-08-02 08:33 | XMS_ITS | Continuity of Care Document ---
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 Refills 0, Maintenance, 05/19/19 14:39:00 EST, [id number] 157, cm, 04/21/19 10:26:00 EST, Height, 104, kg, 08/03/17 12:54:00 EDT, Dry Weight Start Date: 05/19/19 Stop Date: 08/17/19 Status: Ordered amoxicillin 500 mg oral capsule [...] 08/04/17 9:05:52 EDT, Route to Pharmacy Electronically, [id number], [facility] Start Date: 08/04/17 Status: Ordered Ativan 0.5 mg oral tablet 1 tablet = 0.5 mg, By Mouth, 3 times a day, PRN anxiety, # 90 tablet, 2 Refills, Maintenance, 03/20/19 16:41:00 EST, Tablet, [id number], 157, cm, 01/13/19 9:10:00 EDT, Height, 104, kg, 08/03/17 12:54:00 EDT, Dry Weight Start Date: 03/20/19 Status: Ordered atorvastatin 40 mg oral tablet 1 tablet = 40 mg, By Mouth, Daily, # 30 tablet, 5 Refills, Maintenance, 03/20/19 15:53:00 EST, Tablet, [facility]/pharmacy #[id number], 157, cm, 01/13/19 9:10:00 EDT, Height, 104, kg, 08/03/17 12:54:00 EDT, Dry Weight Start Date: 03/20/19 Status: Ordered CeleXA 40 mg oral tablet 1, tablet, By Mouth, Daily, # 90 tablet, Refills 1, Tot. Refills 1, Maintenance, 03/20/19 16:10:00 EST, Route to Pharmacy Electronically, [facility]/pharmacy #2339, 157, cm, 01/13/19 9:10:00 EDT, Height, [...] months, # 28 tablet, 0 Refills, Maintenance, 06/07/19 15:15:00 EDT, Tablet, [facility]/pharmacy #[id number], parital fill upon patient request, 157, cm, 04/21/19 10:... Start Date: 06/07/19 Status: Ordered Eliquis 5 mg oral tablet [...] months, # 90 tablet, 0 Refills, Maintenance, 05/19/19 15:26:00 EST, [facility]/pharmacy #[id number], parital fill upon patient request, 157, cm, ... Start Date: 05/19/19 Stop Date: 06/18/19 Status: Ordered morphine 30 mg/8 to 12 hr oral tablet, extended release 1 tablet = 30 mg, By Mouth, 3 times a day, OPIATE AGREEMENT evaluated every 3 to 6 months, # 84 tablet, 0 Refills, Maintenance, 06/07/19 15:15:00 EDT, [facility]/pharmacy #2339, may fill for less, 157, cm, 04/21/19 10:26:00 EST, Height, 104, kg, 08/03/17 12... Start Date: 06/07/19 Stop Date: 07/05/19 Status: Ordered Multivitamin Daily, 0 Refills, Maintenance, 05/25/16 13:36:30 Start Date: 05/25/16 Status: Ordered Narcan 4 mg/0.1 mL nasal spray See Instructions, use for signs of respiratory distress may repeat every 2 to 3 minutes until patient responds, # 2 each, 0 Refills, Soft Stop, 05/10/19 16:02:00 EST, [facility]/pharmacy #2339, 157, cm, 04/21/19 10:26:00 EST, Height, 104, kg, 08/03/17 12:... Start Date: 05/10/19 Status: Ordered [facility] use with inhaler, See Instructions, [...] 14:55:12 EDT, Aerosol, Route to Pharmacy Electronically, [id number], [facility]/pharmacy #[id number] Start Date: 10/28/18 Status: Ordered Ventolin [...]
--- OUTSIDE RECORDS SUMMARY | 2023-08-02 08:33 | XMS_ITS | Continuity of Care Document ---
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 Refills 11, Maintenance, 07/31/19 14:19:00 EDT, [facility], cm, 07/31/19 13:53:00 EDT, Height, 1... Start Date: 07/31/19 Status: Ordered amLODIPine 5 mg oral tablet 5 mg, 1, tablet, By Mouth, Daily, # 90 tablet, Refills 0, Tot. 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 Refills 0, Maintenance, 08/04/17 9:05:52 EDT, Route to Pharmacy Electronically, [id number], [facility] 3 Start Date: 08/04/17 Status: Ordered Ativan 0.5 mg oral tablet 1 tablet = 0.5 mg, By Mouth, 3 times a day, PRN anxiety, # 90 tablet, 2 Refills, Maintenance, 07/24/19 17:04:00 EDT, Tablet, [facility]/pharmacy #2339, 157, cm, 04/21/19 10:26:00 EST, Height, 104, kg, 08/03/17 12:54:00 EDT, Dry Weight Start Date: 07/24/19 Status: Ordered atorvastatin 40 mg oral tablet 1 tablet = 40 mg, By Mouth, Daily, # 90 tablet, 1 Refills, Maintenance, 11/16/19 10:37:00 EDT, Tablet, [facility]/pharmacy #2339, 156.6, cm, 10/23/19 15:34:00 EDT, Height, Dry Weight Start Date: 11/16/19 Status: Ordered citalopram 40 mg oral tablet 1 tablet, By Mouth, Daily, # 90 tablet, 1 Refills, Maintenance, 10/03/19 13:25:00 EDT, [facility] STORE [id number], 157, cm, 08/25/19 15:55:00 EDT, Height Start [...] 0 Refills, Maintenance, 11/15/19 16:47:00 EDT, Tablet, [facility]/pharmacy #2339, parital fill [...] tablet, 0 Refills, Maintenance, 11/15/19 16:47:00 EDT, [facility]/pharmacy #2339, parital fill upon patient request, 156.6, cm, 10/22... Start Date: 11/15/19 Stop Date: 12/15/19 Status: Ordered morphine 30 mg/8 to 12 hr oral tablet, extended release 1 tablet = 30 mg, By Mouth, 3 times a day, OPIATE AGREEMENT evaluated every 3 to 6 months, # 84 tablet, 0 Refills, Maintenance, 11/15/19 16:47:00 EDT, [facility]/pharmacy #2339, may fill for less, [...] 0 Refills, Soft Stop, 05/10/19 16:02:00 EST, [facility]/pharmacy #2339, 157, cm, 04/21/19 10:26:00 EST, Height, 104, kg, 08/03/17 12:... Start Date: 05/10/19 Status: Ordered Nicoderm C-Q 21 mg/24 hr transdermal film, extended release 1 patch, Topically, Daily, # 30 patch, 3 Refills, Maintenance, 08/25/19 16:23:00 EDT, Patch, [facility]/pharmacy #2339, 157, cm, 08/25/19 15:55:00 EDT, Height Start Date: 08/25/19 Status: Ordered [facility], See [...] 14:55:12 EDT, Aerosol, Route to Pharmacy Electronically, [id number], [facility]/pharmacy #2339 Start Date: 10/28/18 [...] 10/23/19 15:22:00 EDT, Route to Pharmacy Electronically, [facility]/pharmacy #2339, 156.5, cm, 10/20/19 16:01:00 EDT, Height Start Date: 10/23/19 Status: Ordered torsemide 5 mg oral tablet 1 tablet = 5 mg, By Mouth, Daily, # 30 tablet, 11 Refills, Maintenance, 10/20/19 16:34:00 EDT, [facility]/pharmacy #2339, 156.5, cm, 10/20/19 16:01:00 EDT, Height [...] 2Right 3Right 11/2008 4advanced right hip OA Vital Signs Most recent to oldest [Reference Range]: 1 Oxygen Saturation [94-100 %] 95 % (11/10/19 3:35 PM) Pulse Rate [55-90 bpm] 78 bpm (11/10/19 3:35 PM) Blood Pressure [90-138/55-84 mm Hg] 128/ 82mm Hg (11/10/19 3:35 PM) Mode of Delivery (Oxygen) Room air (11/10/19 3:35 PM) Blood pressure sites Arm, left (11/10/19 3:35 PM) Social History Social History Type Response Smoking Status Former smoker; Type: Cigarettes; Other: Quit 12/03/14; entered on: 12/10/14 Sex
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
--- OUTSIDE RECORDS SUMMARY | 2023-08-02 08:33 | XMS_ITS | Continuity of Care Document ---
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 Phone Jose Martinez MD Primary Care Physician Encounter [facility] Date(s): 01/28/21 - 02/04/21 [facility] [address] [place] [address]- Encounter Diagnosis Atrial fibrillation(Discharge Diagnosis) - 01/28/21 CHF (congestive heart failure) (QPKG93-90% on echo 2019)(Discharge Diagnosis) - 01/28/21 PRINCESS - Obstructive sleep apnea(Discharge Diagnosis) - 01/28/21 Obesity (BMI 30-39.9)(Discharge Diagnosis) - 01/28/21 Hypertension(Discharge Diagnosis) - 01/28/21 Attending Physician: Ruth Kiser MD Referring Physician: [...] H1N1, inactive(oldterm) 7 01/21/09 Given 1Result Comment: [facility] [place][note 2]:[id number] 2Result Comment: [01/19/2018] [id number] 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 5Admin Note: [facility] [facility] 6Admin Note: Boostrix/Rixensart,[place] 7Admin Note: Novaritis Medications ARIPiprazole 5 mg oral tablet 1, tablet, By Mouth, Daily, TO BE COMBINED WITH THE CITALOPRAM THERAPY, # 90 tablet, Refills 1, Route to Pharmacy Electronically, [facility] 20[facility], 162.5, cm, 12/27/20 14:39:00 EDT, Height, 103, kg, 04/10/20 11:20:00 EST, Dry Weight Start Date: 01/16/21 Status: Ordered Ativan 0.5 mg oral tablet 1 tablet = 0.5 mg, By Mouth, 3 times a day, PRN anxiety, # 90 tablet, 2 Refills, Maintenance, 10/14/20 13:39:00 EDT, Tablet, [facility]/pharmacy #2339, 162.5, cm, 05/15/20 10:27:00 EST, Height, 103, kg, 04/10/20 11:20:00 EST, Dry Weight Start Date: 10/14/20 Status: Ordered atorvastatin 40 mg oral tablet 1 tablet = 40 mg, By Mouth, Daily, # 90 tablet, 1 Refills, Maintenance, 11/16/19 10:37:00 EDT, Tablet, [facility]/pharmacy #2339, 156.6, cm, 10/23/19 15:34:00 EDT, Height, Dry Weight Start Date: 11/16/19 Status: Ordered citalopram 40 mg oral tablet 1 tablet, By Mouth, Daily, # 90 tablet, 1 Refills, Maintenance, 10/28/20 14:21:00 EDT, [facility]/pharmacy#2339, 162.5, cm, 05/15/20 10:27:00 EST, Height, 103, [...] months, # 28 tablet, 0 Refills, Maintenance, 01/15/21 17:11:00 EDT, Tablet, [facility]/pharmacy #2339, parital fill upon patient request, 162.5, cm, 12/27/20 1... Start Date: 01/15/21 Status: Ordered Dulera 100 mcg-5 mcg/inh inhalation aerosol 2 puffs, Inhalation, 2 times a day, # 13 Unknown, 11 Refills, Maintenance, 07/22/20 7:52:00 EDT, [facility], 30, INHALE 2 PUFFS TWICE A DAY, 162.5, cm, 05/15/20 10:27:00 EST, Height, 103, kg, 04/10/20 11:20:00 EST, Dry Weight Start Date: 07/22/20 Status: Ordered ferrous sulfate 325 mg oral enteric coated tablet 1, tablet, By Mouth, 2 times a day, # 180 tablet, Refills 1, Tot. Refills 0, Maintenance, 10/17/20 7:27:00 EDT, Route to Pharmacy Electronically, [facility] 31111, 162.5, cm, 05/15/20 10:27:00 EST, Height, 103, kg, 04/10/20 11:20:00 EST, Dry Weight Start Date: 10/17/20 Status: Ordered lisinopril 10 mg oral tablet 1, tablet, By Mouth, Daily, # 90 tablet, Refills 3, Route to Pharmacy Electronically, [facility] 41097, 162.5, cm, 05/15/20 10:27:00 EST, Height, 103, kg, 04/10/20 11:20:00 EST, Dry Weight Start Date: 11/13/20 Status: Ordered Metoprolol Succinate ER 25 mg oral tablet, extended release 1 tablet, By Mouth, Daily, # 90 tablet, 1 Refills, Maintenance, 07/22/20 7:32:00 EDT, [facility] 84285, 162.5, cm, 05/15/20 10:27:00 EST, Height, 103, kg, 04/10/20 11:20:00 EST, Dry Weight Start Date: 07/22/20 Status: Ordered morphine 15 mg/8 to 12 hr oral tablet, extended release 1 tablet = 15 mg, By Mouth, Every 8 hours, PRN Pain , Moderate, On substance agreement evaluated every 3 to 6 months, # 90 tablet, 0 Refills, Maintenance, 01/15/21 17:11:00 EDT, [facility]/pharmacy #2339, parital fill upon patient request, 162.5, cm, 12/27... Start Date: 01/15/21 Stop Date: 02/14/21 Status: Ordered morphine 30 mg/8 to 12 hr oral tablet, extended release 1 tablet = 30 mg, By Mouth, 3 times a day, OPIATE AGREEMENT evaluated every 3 to 6 months, # 84 tablet, 0 Refills, Maintenance, 01/15/21 17:11:00 EDT, [facility]/pharmacy #2339, may fill for less, 162.5, cm, 12/27/20 14:39:00 EDT, Height, 103, kg, 04/10/20... Start Date: 01/15/21 Stop Date: 02/12/21 Status: Ordered Multivitamin Daily, 0 Refills, Maintenance, 05/25/16 13:36:30 Start Date: 05/25/16 Status: Ordered Nicoderm C-Q 21 mg/24 hr transdermal film, extended release 1 patch, Topically, Daily, # 30 patch, 3 Refills, Maintenance, 08/25/19 16:23:00 EDT, Patch, [facility]/pharmacy #2339, 157, cm, 08/25/19 15:55:00 EDT, Height Start Date: 08/25/19 Status: Ordered [facility] use with inhaler [facility] use with inhaler, See Instructions, [...] tablet, 3 Refills, Maintenance, 10/17/20 12:35:00 EDT, [facility] 51993, 162.5, cm, 05/15/20 10:27:00 EST, Height, 103, kg, 04/10/20 11:20:00 EST, Dry Weight Start Date: 10/17/20 Status: Ordered Ventolin HFA 108 mcg/inh inhalation aerosol with adapter 2 puffs, Inhalation, 4 times a day, PRN NEEDED FOR WHEEZING, # 3 each, 1 Refills, Maintenance, 12/02/20 8:23:00 EDT, [facility]/pharmacy #2339, 162.5, cm, 05/15/20 10:27:00 EST, Height, 103, kg, 04/10/2110:20:00 EST, Dry Weight Start Date: 12/02/20 Stop Date: 05/31/21 Status: Ordered warfarin 5 mg oral tablet 1 tablet, By Mouth, Daily, # 90 tablet, 1 Refills, Maintenance, 09/02/20 8:48:00 EDT, [facility] 56334, 162.5, cm, 05/15/20 10:27:00 EST, Height, 103, kg, 04/10/20 11:20:00 EST, Dry Weight Start Date: 09/02/20 Status: Ordered Problem List Condition Effective Dates Status Health Status Inform ant Asthma(Confirmed) Active Atrial fibrillation(Confirmed) Active Back pain(Confirmed) 1 Active Major depression, chronic(Confirmed) Active CHF (congestive heart failur e) (KBLY99-57% on 2019)(Confirmed) Active Continuous opioid dependence(Confirmed) Active Opiate [...] Clinical Service Informant Atrial fibrillation Discharge Diagnosis 01/28/21 CHF (congestive heart failure) (JKOL84-66% on 2019) Discharge Diagnosis 01/28/21 PRINCESS - Obstructive sleep apnea Discharge Diagnosis 01/28/21 Obesity (BMI 30-39.9) Discharge Diagnosis 01/28/21 Hypertension Discharge Diagnosis 01/28/21 Vital Signs Most recent to oldest [Reference Range]: 1 Height 162.5 cm (01/28/21 3:21 PM) Weight 112.7 kg (01/28/21 3: PM) Oxygen Saturation [94-100 %] 96 % (01/28/21 3: PM) Pulse Rate [55-90 bpm] 76 bpm (01/28/21 3: PM) Body Mass Index [18.5-24.99] 42.68 *>HHI* (01/28/21 3:21 PM) Blood Pressure [90-138/55-84 mm Hg] 92/5 6mm Hg (01/28/21 3: PM) Temperature [96.8-100.4 DegF] 97.2 DegF (01/28/21 3: PM) Blood pressure sites Arm, right (01/28/21 3:21 PM) Temperature Route Temporal (01/28/21 3: PM) Social History Social History Type Response Smoking Status 5-9 cigarettes (betw een 1/4 to 1/2 pack)/day in last 30 days; Other: Started at 23 years old; entered on: 01/18/20 Sex
--- OUTSIDE RECORDS SUMMARY | 2023-08-02 08:33 | XMS_ITS | Continuity of Care Document ---
Author Organization [facility] ter Address [address] [place] [address]- Care Team Providers Care Mat Inspector Name Role Phone Jose Martinez MD Primary Care Physician Encounter [facility] Date(s): 06/09/21 - 06/12/[address] [address]- Encounter Diagnosis Hypotension(Final) - 06/09/21 Discharge Disposition: A-D/C Home Attending Physician: Vernell Jones MD Admitting Physician: Ino Pedersen MD Referring Physician: Not on Staff, Referring [...] H1N1, inactive(oldterm) 7 01/21/09 Given 1Result Comment: [facility]:[id number] 2Result Comment: [01/19/2018] [id number] 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 5Admin Note: [facility] [facility] 6Admin Note: [employer] 7Admin Note: Novaritis Medications ARIPiprazole 5 mg oral tablet 1, tablet, By Mouth, Daily, TO BE COMBINED WITH THE CITALOPRAM THERAPY, # 90 tablet, Refills 0, Route to Pharmacy Electronically, [facility], 160, cm, 06/02/21 13:26:00 EDT, Height, 103, kg, 04/10/20 11:20:00 EST, Dry Weight Start Date: 06/03/21 Status: Ordered aspirin 81 mg oral delayed release tablet 81 mg, By Mouth, Daily, # 30 tablet, Refills 11, Tot. Refills 11, Maintenance, 06/12/21 9:27:00 EDT, Route to Pharmacy Electronically, [facility], Partial fill upon patient request if [...] Mouth, Daily, # 90 tablet, 1 Refills, [facility] 79238, 162.5, cm, 01/29/21 12:38:00 EST, Height, 103, kg, 04/10/20 11:20:00 EST, Dry Weight Start Date: 04/07/21 Status: Ordered Dulera 100 mcg-5 mcg/inh inhalation aerosol 2 puffs, Inhalation, 2 times a day, # 1 each, 11 Refills, 06/02/21 14:01:00 EDT, [facility]/pharmacy #[id number], 2 puffs Inhalation 2 times a day, 160, cm, 06/02/21 13:26:00 EDT, Height, 103, kg, 04/10/20 11:20:00 EST, Dry Weight Start Date: 06/02/21 Status: Ordered ferrous sulfate 325 mg oral enteric coated tablet 1, tablet, By Mouth, 2 times a day, # 180 tablet, Refills 1, Route to Pharmacy Electronically, [facility] 20604, 162.5, cm, 01/29/21 12:38:00 EST, Height, 103, [...] of lasix that day and call your gameplay programmer's office for a... Start Date: 06/12/21 Status: Ordered Lipitor 80 mg oral tablet 1 tablet = 80 mg, By Mouth, Daily at bedtime, # 30 tablet, 11 Refills, Maintenance, 06/12/21 9:27:00 EDT, Tablet, [facility], Partial fill upon patient request if the prescription is for a schedule II opioid drug., 157.48, cm, 06/10/21 1... Start Date: 06/12/21 Status: Ordered lisinopril 10 mg oral tablet 10 mg, Tablet, By Mouth, 06/12/21 9:00:00 EDT Start Date: 06/12/21 Stop Date: 06/12/21 Status: Completed lisinopril 5 mg oral tablet 5 mg, 1, tablet, By Mouth, Daily, # 30 tablet, Refills 2, Tot. Refills 2, Maintenance, 06/12/21 9:27:00 EDT, Route to Pharmacy Electronically, [facility], Partial fill upon patient request if the prescription is for a schedule II opioid... Start Date: 06/12/21 Status: Ordered Metoprolol Succinate ER 25 mg oral tablet, extended release 1 tablet, By Mouth, Daily, # 30 tablet, 1 Refills, Maintenance, 06/12/21 9:27:00 EDT, [facility], 157.48, cm, 06/10/21 17:04:00 EDT, [...] opioid drug. Start Date: 06/12/21 Status: Ordered MorPHINE CR Tablet 15 mg, CR Tablet, By Mouth, Every 12 hours, Hold for: SBP<100, sedation, PRN for Pain , Moderate, Routine, 06/11/21 13:26:00 EDT Notes: Do Not Crush. Start Date: 06/11/21 Stop Date: 06/12/21 Status: Discontinued multivitamin Multiple Vitamins oral tablet 1 tablet, By Mouth, Daily, # 30 tablet, 5 Refills, Maintenance, 06/09/21 15:31:00 EDT, Tablet, [facility]/pharmacy #2339, Partial fill upon patient request [...] opioid drug. Start Date: 06/11/21 Status: Ordered Ventolin HFA 108 mcg/inh inhalation aerosol with adapter 2 puffs, Inhalation, Daily, PRN NEEDED FOR WHEEZING, for 90 days, # 54 each, 1 Refills, Physician Stop, [facility], 162.5, cm, 01/29/21 12:38:00 EST, Height, 103, kg, 04/10/20 11:20:00 EST, Dry Weight Start Date: 04/07/21 Stop Date: 07/06/21 Status: Ordered warfarin 5 mg oral tablet 0.5 tablet = 2.5 mg, By Mouth, Daily, Goal INR 2-3 Please follow up with your coumadin clinic, # [id number], 0 Refills, Maintenance, 06/12/21 9:27:00 EDT, Tablet, [facility], Partial fill upon patient request if the prescription is for a... Start Date: 06/12/21 Status: Ordered Problem List Condition Effective Dates Status Health Status Inform ant Asthma(Confirmed) Active Atrial fibrillation(Confirmed) Active Back pain(Confirmed) 1 Active Major depression, chronic(Confirmed) Active CHF (congestive heart failur e) (FIVP23-05% on echo 2019)(Confirmed) Active Continuous opioid dependence(Confirmed) Active Opiate analgesic contract exists(Confirmed) Active Generalized [...] Exam Date Time Procedure Performing Provider Status 06/09/21 5:24 PM Chest 2 Views Frontal and Lat Bobby Zapien; Auth (Verified) Notes: (Chest 2 Views Frontal and Lat) Reason For Exam: Chest Pain;Other: RESULT: Chest 2 Views Frontal and Lat Chest 2 Views Frontal and Lat Hx of Present Illness: pt reports multiple falls since being discharged from the hospital a few weeks ago. today fell with no precursors to event. denies hitting head. who witnessed fall denies LOC but pt does not remember event; Reason: Other:; Chest Pain; Clinical Question(s): Other: COMPARISON: 05/24/2021 FINDINGS: LINES AND TUBES: None. LUNGS AND PLEURA: Clear lungs. Normal pulmonary vascularity. No pleural effusion. No pneumothorax. HEART, MEDIASTINUM AND LIANNA: Heart is normal in size. Normal upper mediastinal and hilar contour. BONES AND SOFT TISSUES: No acute abnormality. Mild to moderate endplate spurring mid to lower thoracic spine. Multiple surgical clips are present in the right upper abdominal quadrant. IMPRESSION: No acute abnormality. WSN: [id number] Ordering Physician: Flaca Walton Dictated By: Kash Grover MD Dictated Date/Time: 06/09/21 5:33 pm Reviewed By: Kash Grover MD Signed By: Kash Grover MD Signed Date/Time: 06/09/21 5:33 pm Transcribed By: LOS Transcribed Date/Time: 06/09/21 5:31 pm Vital Signs Most recent to oldest [Reference Range]: 1 2 3 Height 157.48 cm (06/10/21 3:06 PM) Weight 111 kg (06/10/21 3:06 PM) Oxygen Saturation [94-100 %] 100 % (06/12/21 7:00 AM) 99 % (06/12/21 4:00 AM) 97 % (06/12/21 12:00 AM) Pulse Rate [55-90 bpm] 71 bpm (06/12/21 7:00 AM) 88 bpm (06/12/21 4:00 AM) 87 bpm (06/12/21 12:00 AM) Body Mass Index [18.5-24.99] 44.76 *>HHI* (06/10/21 3:06 PM) Blood Pressure [90-138/55-84 mm Hg] 135/88mm Hg (06/12/21 7:38 AM) 135/88mm Hg (06/12/21 7:00 AM) 119/78mm Hg (06/12/21 4:00 AM) Respiratory Rate [16-30 br/min] 18 br/min (06/12/21 7:00 AM) 17 br/min (06/12/21 4:00 AM) 16 br/min (06/12/21 3:54 AM) Temperature [96.8-100.4 DegF] 98.5 DegF (06/12/21 8:00 AM) 98.8 DegF (3/24/22 4:00 AM) 97.9 DegF (06/12/21 12:00 AM) Mode of Delivery (Oxygen) Room air (06/12/21 7:00 AM) Room air (06/12/21 4:00 AM) Room air (06/12/21 12:00 AM) Blood pressure sites Arm, right (06/12/21 7:00 AM) Arm, left (06/12/21 4:00 AM) Arm, left (06/12/21 12:00 AM) Temperature Route Oral (06/12/21 8:00 AM) Oral (06/12/21 4:00 AM) Oral (06/12/21 12:00 AM) Dry Weight 111 kg (06/10/21 3:06 PM) Weight Obtained Via Bed scale (06/10/21 3:06 PM) Dry Weight Obtained Via Bed scale (06/10/21 3:06 PM) Social History Social History Type Response Smoking Status 5-9 cigarettes (betw een 1/4 to 1/2 pack)/day in last 30 days; Other: Started at 23 years old; entered on: 01/18/20 Sex
--- OUTSIDE RECORDS SUMMARY | 2023-08-02 08:33 | XMS_ITS | Continuity of Care Document ---
Author Organization [facility] Address [address] [place] [address]- Care Team Providers Care Hooking Machine Operator Name Role Phone Jose Martinez MD Primary Care Physician Encounter 07/20/19 - 11/19/19 [facility] [address], [address] [place] [address]- [phone] Attending Physician: Jose Martinez MD Admitting Physician: Jose Martinez MD Referring Physician: Jose Martinez MD Allergies, [...] inactive(oldterm) 6 01/21/09 Given 1Result Comment: [01/19/2018] [id number] 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 4Admin Note: [facility] 5Admin Note: [employer],[place] 6Admin Note: Novaritis Medications Abilify 5 mg oral tablet 5 mg, 1, tablet, By Mouth, Daily, to be combined with the citalopram therapy, # 30 tablet, Refills 11, Tot. Refills 11, Maintenance, 07/31/19 14:19:00 EDT, [id number], cm, 07/31/19 13:53:00 EDT, Height, 1... Start Date: 07/31/19 Status: Ordered amLODIPine 5 mg oral tablet 5 mg, 1, tablet, By Mouth, Daily, # 90 tablet, Refills 0, Tot. Refills 0, Maintenance, 05/19/19 14:39:00 EST, [id number], cm, 04/21/19 10:26:00 EST, Height, 104, kg, 08/03/17 12:54:00 EDT, Dry Weight Start Date: 05/19/19 Stop Date: 08/17/19 Status: Ordered amLODIPine 5 mg oral tablet 1 tablet = 5 mg, By Mouth, Daily, # 90 tablet, 1 Refills, Maintenance, 10/12/19 11:34:00 EDT, [facility] 157, cm, 08/25/19 15:55:00 EDT, Height, Dry Weight Start Date: 10/12/19 Status: Ordered amoxicillin 500 mg oral capsule 4 capsule = 2,000 mg, By Mouth, mail caller to Procedure, 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 Refills 0, Maintenance, 08/04/17 9:05:52 EDT, Route to Pharmacy Electronically, [id number], [facility] Start Date: 08/04/17 Status: Ordered [...] Refills, Maintenance, 10/03/19 13:25:00 EDT, [facility], 157, cm, 08/25/19 15:55:00 EDT, Height Start [...] tablet, 0 Refills, Maintenance, 11/15/19 16:47:00 EDT, [facility]/pharmacy #2339, [...] 0 Refills, Soft Stop, 05/10/19 16:02:00 EST, [facility]/pharmacy #2339, 157, cm, 04/21/19 10:26:00 EST, Height, 104, kg, 08/03/17 12:... Start Date: 05/10/19 Status: Ordered Nicoderm C-Q 21 mg/24 hr transdermal film, extended release 1 patch, Topically, Daily, # 30 patch, 3 Refills, Maintenance, 08/25/19 16:23:00 EDT, Patch, [facility], 157, cm, 08/25/19 15:55:00 EDT, Height Start Date: 08/25/19 Status: Ordered [facility] use with inhaler Raquelhamandrea [facility] use with inhaler, See Instructions, # [...] 14:55:12 EDT, Aerosol, Route to Pharmacy Electronically, [id number], [facility]/pharmacy #2339 Start Date: 10/28/18 Status: Ordered [...] 10/23/19 15:22:00 EDT, Route to Pharmacy Electronically, [facility]/pharmacy #2339, 156.5, cm, 10/20/19 16:01:00 EDT, Height Start Date: 10/23/19 Status: Ordered torsemide 5 mg oral tablet 1 tablet = 5 mg, By Mouth, Daily, # 30 tablet, 11 Refills, Maintenance, 10/20/19 16:34:00 EDT, [facility]/pharmacy #2339, 156.5, cm, 10/20/19 16:01:00 EDT, [...]
--- OUTSIDE RECORDS SUMMARY | 2023-08-02 08:33 | XMS_ITS | Continuity of Care Document ---
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 5Admin Note: [facility] 6Admin Note: [employer],[place] 7Admin Note: Novaritis Medications ARIPiprazole 5 mg oral tablet 1, tablet, By Mouth, Daily, TO BE COMBINED WITH THE CITALOPRAM THERAPY, # 90 tablet, Refills 0, Route to Pharmacy Electronically, [facility], 160, cm, 06/02/21 13:26:00 EDT, Height, 103, kg, 04/10/20 11:20:00 EST, Dry Weight Start Date: 06/03/21 Status: Ordered aspirin 81 mg oral delayed release tablet 81 mg, By Mouth, Daily, # 30 tablet, Refills 11, Tot. Refills 11, Maintenance, 06/12/21 9:27:00 EDT, Route to Pharmacy Electronically, [facility], Partial fill upon patient [...] Mouth, Daily, # 90 tablet, 1 Refills, [facility] 20827, 162.5, cm, 01/29/21 12:38:00 EST, Height, 103, kg, 04/10/20 11:20:00 EST, Dry Weight Start Date: 04/07/21 Status: Ordered Dulera 100 mcg-5 mcg/inh inhalation aerosol 2 puffs, Inhalation, 2 times a day, # 1 each, 11 Refills, 06/02/21 14:01:00 EDT, [facility]/pharmacy #2339, 2 puffs Inhalation 2 times a day, 160, cm, 06/02/21 13:26:00 EDT, Height, 103, kg, 04/10/20 11:20:00 EST, Dry Weight Start Date: 06/02/21 Status: Ordered ferrous sulfate 325 mg oral enteric coated tablet 1, tablet, By Mouth, 2 times a day, # 180 tablet, Refills 1, Route to Pharmacy Electronically, [facility] 25250, 162.5, cm, 01/29/21 12:38:00 EST, Height, 103, [...] of lasix that day and call your command center analyst's office for a... Start Date: 06/12/21 Status: Ordered Lipitor 80 mg oral tablet 1 tablet = 80 mg, By Mouth, Daily at bedtime, # 30 tablet, 11 Refills, Maintenance, 06/12/21 9:27:00 EDT, Tablet, [facility], Partial fill upon patient request if the prescription is for a schedule II opioid drug., 157.48, cm, 06/10/21 1... Start Date: 06/12/21 Status: Ordered lisinopril 5 mg oral tablet 5 mg, 1, tablet, By Mouth, Daily, # 30 tablet, Refills 11, Tot. Refills 11, Maintenance, 07/03/21 14:52:00 EDT, Route to Pharmacy Electronically, [facility]/pharmacy #2333, Partial fill upon patient requestif the prescription is for a schedule II opioid kal... Start Date: 07/03/21 Status: Ordered Metoprolol Succinate ER 25 mg oral tablet, extended release 1 tablet, By Mouth, Daily, # 30 tablet, 1 Refills, Maintenance, 06/12/21 9:27:00 EDT, [facility], 157.48, cm, 06/10/21 17:04:00 EDT, Height, 111, kg, 06/10/21 15:06:00 EDT, Dry Weight Start Date: 06/12/21 Status: Ordered morphine 15 mg/8 to 12 hr oral tablet, extended release 1 tablet = 15 mg, By Mouth, Every 8 hours, PRN Pain , Moderate, On substance agreement evaluated every 3 to 6 months, # 84 tablet, 0 Refills, Maintenance, 06/25/21 16:52:00 EDT, [facility]/pharmacy #2339, parital fill upon patient request, 157.48, [...] 5 Refills, Maintenance, 06/09/21 15:31:00 EDT, Tablet, [facility]/pharmacy #2339, Partial fill upon patient request if [...] 0 Refills, Maintenance, 06/12/21 9:27:00 EDT, Tablet, [facility], Partial fill upon patient request if the prescription is for a... Start Date: 06/12/21 Status: Ordered Problem List Condition Effective Dates Status Health Status Inform ant Asthma(Confirmed) Active Atrial fibrillation(Confirmed) Active Back pain(Confirmed) 1 Active Major depression, chronic(Confirmed) Active CHF (congestive heart failur e) (CDYD82-23% on echo 2019)(Confirmed) Active Continuous opioid dependence(Confirmed) [...]
--- OUTSIDE RECORDS SUMMARY | 2023-08-02 08:33 | XMS_ITS | Continuity of Care Document ---
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 4Admin Note: [employer] 5Admin Note: [employer] 6Admin Note: Novaritis Medications Abilify 5 mg oral tablet 5 mg, 1, tablet, By Mouth, Daily, to be combined with the citalopram therapy, # 30 tablet, Refills 11, Tot. Refills 11, Maintenance, 07/31/19 14:19:00 EDT, [facility], cm, 07/31/19 13:53:00 EDT, Height, 1... Start Date: 07/31/19 Status: Ordered Ativan 0.5 mg oral tablet 1 tablet = 0.5 mg, By Mouth, 3 times a day, PRN anxiety, # 90 tablet, 2 Refills, Maintenance, 05/20/20 14:21:00 EST, Tablet, [facility], 162.5, cm, 05/15/20 10:27:00 EST, Height, 103, kg, 04/10/20 11:20:00 EST, Dry Weight Start Date: 05/20/20 Status: Ordered atorvastatin 40 mg oral tablet 1 tablet = 40 mg, By Mouth, Daily, # 90 tablet, 1 Refills, Maintenance, 11/16/19 10:37:00 EDT, Tablet, [facility], 156.6, cm, 10/23/19 15:34:00 EDT, Height, Dry Weight Start Date: 11/16/19 Status: Ordered citalopram 40 mg oral tablet 1 tablet, By Mouth, Daily, # 90 tablet, 1 Refills, Maintenance, 04/04/20 11:03:00 EST, [facility], 162.5, cm, 04/03/20 11:38:00 EST, Height, 108, [...] months, # 28 tablet, 0 Refills, Maintenance, 06/10/20 20:16:00 EDT, Tablet, [facility]/pharmacy #2339, parital fill upon patient request, 162.5, cm, 05/15/20 1... Start Date: 06/10/20 Status: Ordered Dulera 100 mcg-5 mcg/inh inhalation aerosol 2 puffs, Inhalation, 2 times a day, # 1 each, 11 Refills, Maintenance, 07/31/19 14:15:00 EDT, Aerosol, [facility]/pharmacy #2339, 2 puffs Inhalation 2 times a day, 157, cm, 07/31/19 13:53:00 EDT, Height, 104, kg, 08/03/17 12:54:00 EDT, Dry Weight Start Date: 07/31/19 Status: Ordered ferrous sulfate 325 mg oral enteric coated tablet 325 mg, By Mouth, 2 times a day, # 60 tablet, Refills 5, Tot. Refills 5, Maintenance, 04/17/20 10:12:00 EST, Route to Pharmacy Electronically, [facility]/pharmacy #2339, 162.5, cm, 04/10/20 11:20:00 EST, Height, 103, kg, 04/10/20 11:20:00 EST, Dry Weight Start Date: 04/17/20 Status: Ordered Lasix 40 mg oral tablet 40 mg, 1, tablet, By Mouth, Daily, # 30 tablet, Refills 5, Tot. Refills 5, Maintenance, 03/11/20 13:11:00 EST, Route to Pharmacy Electronically, [facility]/pharmacy #2339, 160, cm, 02/28/20 10:28:00 EST, Height, 104, kg, 01/19/20 3:57:00 EDT, Dry Weight Start Date: 03/11/20 Status: Ordered lisinopril 10 mg oral tablet 10 mg, 1, tablet, By Mouth, Daily, # 90 tablet, Refills 1, Tot. Refills 1, Maintenance, 05/20/20 8:39:00 EST, Route to Pharmacy Electronically, [facility]/pharmacy #2339, 162.5, cm, 05/15/20 10:27:00 EST, Height, 103, kg, 04/10/20 11:20:00 EST, Dry Weight Start Date: 05/20/20 Stop Date: 11/16/20 Status: Ordered morphine 15 mg/8 to 12 hr oral tablet, extended release 1 tablet = 15 mg, By Mouth, Every 8 hours, PRN Pain , Moderate, On substance agreement evaluated every 3 to 6 months, # 90 tablet, 0 Refills, Maintenance, 06/10/20 20:16:00 EDT, [facility]/pharmacy #2339, parital fill upon patient request, 162.5, cm, 05/15... Start Date: 06/10/20 Stop Date: 07/10/20 Status: Ordered morphine 30 mg/8 to 12 hr oral tablet, extended release 1 tablet = 30 mg, By Mouth, 3 times a day, OPIATE AGREEMENT evaluated every 3 to 6 months, # 84 tablet, 0 Refills, Maintenance, 06/10/20 20:16:00 EDT, [facility]/pharmacy #2339, may fill for less, 162.5, cm, 05/15/20 10:27:00 EST, Height, 103, kg, 04/10/20... Start Date: 06/10/20 Stop Date: 07/08/20 Status: Ordered Multivitamin Daily, 0 Refills, Maintenance, 05/25/16 13:36:30 Start Date: 05/25/16 Status: Ordered Nicoderm C-Q 21 mg/24 hr transdermal film, extended release 1 patch, Topically, Daily, # 30 patch, 3 Refills, Maintenance, 08/25/19 16:23:00 EDT, Patch, [facility]/pharmacy #2339, 157, cm, 08/25/19 15:55:00 EDT, Height Start Date: 08/25/19 Status: Ordered [facility] use with inhaler [facility] use with inhaler, See Instructions, [...] 01/22/20 9:08:00 EST, Route to Pharmacy Electronically, [facility]/pharmacy #2339, 160, cm, 01/22/20 7:53:00 EST, Height, 104, kg, 01/19/20 3:57:00 EDT, Dry Weight Start Date: 01/22/20 Stop Date: 07/20/20 Status: Ordered Ventolin HFA 108 mcg/inh inhalation aerosol with adapter 2 puffs, Inhalation, 4 times a day, PRN for wheezing, # 8 Gm, 5 Refills, Maintenance, 12/20/19 11:27:00 EDT, Aerosol, [facility]/pharmacy #2339, 156.6, cm, 10/23/19 15:34:00 EDT, Height Start Date: 12/20/19 Status: Ordered warfarin 5 mg oral tablet 0.5 tablet = 2.5 mg, By Mouth, Daily at bedtime, 5mg tablet on Fridays, # 30 tablet, 5 Refills, Maintenance, 02/26/20 12:12:00 EST, Tablet, [facility]/pharmacy #2339, 160, cm, 01/26/20 9:40:00 EST, [...]
--- OUTSIDE RECORDS SUMMARY | 2023-08-02 08:33 | XMS_ITS | Continuity of Care Document ---
Author Organization [facility] Adult Address Unknown Care Team Providers Care Shuffle Board Operator Name Role Phone Jose Martinez MD Primary Care Physician [phone] Encounter [facility] Date(s): 08/19/21 - 09/18/21 [facility] Adult Allergies, Adverse Reactions, Alerts Substance Reaction [...] H1N1, inactive(oldterm) 7 01/21/09 Given 1Result Comment: 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 Refills 3, Physician Stop 08/01/22 9:00:00 EDT, 08/06/21 9:00:00 EDT, Route to Pharmacy Electronically, [facility]/pharmacy #[id number], 157.48, cm, 0... Start Date: 08/06/21 Stop Date: 08/01/22 Status: Ordered aspirin 81 mg oral delayed release tablet 81 mg, By Mouth, Daily, # 30 tablet, Refills 11, Tot. Refills 11, Maintenance, 06/12/21 9:27:00 EDT, Route to Pharmacy Electronically, [facility], Partial fill upon patient request if the prescription is for a schedule II opioid drug., 1... Start Date: 06/12/21 Stop Date: 06/07/22 Status: Ordered Ativan 0.5 mg oral tablet 1 tablet = 0.5 mg, By Mouth, Daily at bedtime, PRN as needed for anxiety, # 30 tablet, 1 Refills, Maintenance, 08/06/21 9:02:00 EDT, Tablet, [facility]/pharmacy #[id number], Partial fill upon patient request if the prescription is for a schedule II opioid drug., 1... Start Date: 08/06/21 Status: Ordered citalopram 40 mg oral tablet 1 tablet, By Mouth, Daily, for 90 days, # 90 tablet, 3 Refills, Physician Stop 08/01/22 9:01:00 EDT, 08/06/21 9:01:00 EDT, [facility]/pharmacy #[id number], 157.48, cm, 08/05/21 [...] 1 each, 11 Refills, 06/02/21 14:01:00 EDT, [facility]/pharmacy #2339, 2 puffs Inhalation 2 times a day, 160, cm, 06/02/21 13:26:00 EDT, Height, 103, kg, 04/10/20 11:20:00 EST, Dry Weight Start Date: 06/02/21 Status: Ordered Entresto 24 mg-26 mg oral tablet 1 tablet, By Mouth, 2 times a day, # 60 tablet, 11 Refills, [facility] STORE [id number], 30, TAKE 1 TABLET BY MOUTH TWICE [...] 08/06/21 9:01:00 EDT, Route to Pharmacy Electronically, [facility]/pharmacy #[id number], 157.48, cm, 08/05/21 [...] of lasix that day and call your technical account representative's office for a... Start Date: 06/12/21 Status: Ordered Lipitor 80 mg oral tablet 1 tablet = 80 mg, By Mouth, Daily at bedtime, # 30 tablet, 11 Refills, Maintenance, 06/12/21 9:27:00 EDT, Tablet, [facility], Partial fill upon patient request if the prescription is for a schedule II opioid drug., 157.48, cm, 06/10/21 1... Start Date: 06/12/21 Status: Ordered metoprolol 100 mg oral tablet, extended release 100 mg, 1, tablet, By Mouth, Daily, # 90 tablet, Refills 3, Tot. Refills 3, Maintenance, 09/11/21 12:08:00 EDT, Route to Pharmacy Electronically, [facility]/pharmacy #2339, 157.48, cm, 08/12/21 [...] tablet, 0 Refills, Maintenance, 08/19/21 14:03:00 EDT, [facility]/pharmacy #2339, parital fill upon [...] a schedul... Start Date: 08/05/21 Status: Ordered warfarin 5 mg oral tablet 0.5 tablet = 2.5 mg, By Mouth, Daily, Goal INR 2-3 Please follow up with your coumadin clinic, # 15tablet, 0 Refills, Maintenance, 06/12/21 9:27:00 EDT, Tablet, [facility], Partial fill upon patient request if the prescription is for a... Start Date: 06/12/21 Status: Ordered Problem List Condition Effective Dates Status Health Status Inform ant Asthma(Confirmed) Active Atrial fibrillation(Confirmed) Active Back pain(Confirmed) 1 Active Major depression, chronic(Confirmed) Active CHF (congestive heart failur e) ([id number]% on echo 2019)(Confirmed) Active Continuous opioid dependence(Confirmed) [...]
--- OUTSIDE RECORDS SUMMARY | 2023-08-02 08:33 | XMS_ITS | Continuity of Care Document ---
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 5Admin Note: [employer],[place] 6Admin Note: Novaritis Medications Abilify 5 mg oral tablet 5 mg, 1, tablet, By Mouth, Daily, to be combined with the citalopram therapy, # 30 tablet, Refills 11, Tot. Refills 11, Maintenance, 07/31/19 14:19:00 EDT, [id number], cm, 07/31/19 13:53:00 EDT, Height, 1... Start Date: 07/31/19 Status: Ordered amLODIPine 5 mg oral tablet 5 mg, 1, tablet, By Mouth, Daily, # 90 tablet, Refills 0, Tot. Refills 0, Maintenance, 05/19/19 14:39:00 EST, [id number], [facility], cm, 04/21/19 10:26:00 EST, Height, 104, kg, 08/03/17 12:54:00 EDT, Dry Weight Start Date: 05/19/19 Stop Date: 08/17/19 Status: Ordered amLODIPine 5 mg oral tablet 1 tablet = 5 mg, By Mouth, Daily, # 90 tablet, 1 Refills, Maintenance, 10/12/19 11:34:00 EDT, 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 Refills 0, Maintenance, 08/04/17 9:05:52 EDT, Route to Pharmacy Electronically, [id number], [facility] Start Date: 08/04/17 Status: Ordered Ativan [...] Refills, Maintenance, 10/03/19 13:25:00 EDT, [id number], 157, cm, 08/25/19 15:55:00 EDT, Height Start [...] EDT, Height Start Date: 08/25/19 Status: Ordered [facility] use with inhaler [facility] use with inhaler, See Instructions, [...] 14:55:12 EDT, Aerosol, Route to Pharmacy Electronically, [id number], [facility]/pharmacy #2339 Start Date: 10/28/18 Status: Ordered spacer [...] 10/23/19 15:22:00 EDT, Route to Pharmacy Electronically, [facility]/pharmacy #2339, 156.5, cm, 10/20/19 16:01:00 EDT, Height Start Date: 10/23/19 Status: Ordered torsemide 5 mg oral tablet 1 tablet = 5 mg, By Mouth, Daily, # 30 tablet, 11 Refills, Maintenance, 10/20/19 16:34:00 EDT, [facility]/pharmacy #2339, 156.5, cm, 10/20/19 16:01:00 EDT, Height [...]
--- OUTSIDE RECORDS SUMMARY | 2023-08-02 08:33 | XMS_ITS | Continuity of Care Document ---
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 Start Date: 10/13/21 Status: Ordered amLODIPine 10 mg oral tablet 1 tablet, By Mouth, Daily, # 90 tablet, 3 Refills, Maintenance, 02/23/22 8:50:00 EST, [facility] STORE 61997, 157.48, cm, 01/20/22 14:40:00 EDT, Height, 111, [...] 06/12/21 9:27:00 EDT, Route to Pharmacy Electronically, [facility], Partial fill upon patient request if the prescription is for a schedule II opioid drug., 1... Start Date: 06/12/21 Stop Date: 06/07/22 Status: Ordered Ativan 0.5 mg oral tablet 1 tablet = 0.5 mg, By Mouth, Daily at bedtime, PRN as needed for anxiety, # 30 tablet, 5 Refills, Maintenance, 05/25/22 7:04:00 EST, Tablet, [facility]/pharmacy #2339, Partial [...] EVERY DAY, # 90 tablet, 1 Refills, [facility] STORE 85669, 90, TAKE 1 TABLET BY MOUTH EVERY [...] 1 each, 11 Refills, 06/02/21 14:01:00 [facility] 2 puffs Inhalation 2 times a day, 160, cm, 06/02/21 13:26:00 EDT, Height, 103, kg, 04/10/20 11:20:00 EST, Dry Weight Start Date: 06/02/21 Status: Ordered Entresto 24 mg-26 mg oral tablet 1 tablet, By Mouth, 2 times a day, # 60 tablet, 11 Refills, [facility] 00080, 30, TAKE 1 TABLET BY MOUTH TWICE [...] 08/06/21 9:01:00 EDT, [facility], cm, 08/05/21 14:31:00 EDT, Height, 111,... Start Date: 08/06/21 Stop Date: 08/01/22 Status: Ordered furosemide 20 mg oral tablet 1, tablet, By Mouth, Daily, # 30 tablet, Refills 5, Maintenance, 12/30/21 15:04:00 EDT, Route to Pharmacy Electronically, [facility] STORE 30478, 157.48, cm, 11/04/21 11:33:00 EDT, Height, 111, kg, 06/10/2214:06:00 EDT, Dry Weight Start Date: 12/30/21 Status: Ordered Lipitor 80 mg oral tablet 1 tablet = 80 mg, By Mouth, Daily at bedtime, # 30 tablet, 11 Refills, Maintenance, 06/12/21 9:27:00 EDT, Tablet, [facility], Partial fill upon patient request if the prescription is for a schedule II opioid drug., 157.48, cm, 06/10/21 1... Start Date: 06/12/21 Status: Ordered Metoprolol Succinate ER 25 mg oral tablet, extended release 1 tablet, By Mouth, Daily, # 90 tablet, 2 Refills, Maintenance, 05/21/22 10:15:00 EST, [facility] STORE 82479, 157.48, cm, 05/18/22 9:48:00 EST, Height, 111, kg, 06/10/21 15:06:00 EDT, Dry Weight Start Date: 05/21/22 Status: Ordered rOPINIRole 0.25 mg oral tablet See Instructions, TAJE 1 TABLET BY MOUTH AT BEDTIME FOR 1 WEEK THEN INCRAESE TO 2 AT NIGHT FOR 1 WEEK THEN 3 EVERY NIG, # 90 tablet, 5 Refills, Maintenance, 02/23/22 8:50:00 EST, [facility] STORE 50521, 157.48, cm, 01/20/22 14:40:00 EDT, Height, 111, kg, 03/... Start Date: 02/23/22 Status: Ordered spironolactone 25 mg oral tablet 0.5, tablet, By Mouth, Daily, # 45 tablet, Refills 1, Maintenance, 05/21/22 10:15:00 EST, Route to Pharmacy Electronically, [facility] STORE 13319, 157.48, cm, 05/18/22 9:48:00 EST, Height, 111, kg, 06/10/21 15:06:00 EDT, Dry Weight Start Date: 05/21/22 Status: Ordered warfarin 5 mg oral tablet See Instructions, Take 1/2 to 1 tablet By Mouth Daily as directed by coumadin clinic, # 90 tablet, 2 Refills, Maintenance, 05/12/22 13:52:00 EST, Tablet, [facility]/pharmacy #2339, Partial fill upon patientrequest if the prescription is for a schedule II... Start Date: 05/12/22 Status: Ordered Problem List Condition Confirmation Course Effective Dates Status H ealth Status Informant Asthma Confirmed Active Atrial fibrillation Confirmed Active Back pain 1 Confirmed Active Cardiomyopathy Confirmed Active Major depression, chronic Confirmed Active CHF (congestive heart failure) (JGPL86-33% on echo 2019) Confirmed Active Continuous opioid [...] recent to oldest [Reference Range]: 1 Height 157.48 cm (05/18/22 9:48 AM) Weight 120.2 kg (05/18/22 9:48 AM) Oxygen Saturation [94-100 %] 98 % (05/18/22 9:48 AM) Pulse Rate [55-90 bpm] 64 bpm (05/18/22 9:48 AM) Body Mass Index [18.5-24.99 kg/m2] 48.47 kg/m2 *>HHI* (05/18/22 9:48 AM) Blood Pressure [90-138/55-84 mm Hg] 110/ 72mm Hg (05/18/22 9:48 AM) Mode of Delivery (Oxygen) Room air (05/18/22 9:48 AM) Blood pressure sites Arm, left (05/18/22 9:48 AM) Social History Social History Type Response Smoking Status Former smoker, quit more than 30 days ago; Other: quit June 2021; entered on: 05/18/22 Sex Female Note * Doreen Herbert MA: PERFORM, SIGN, VERIFY Event Display: Patient Education/Instruction Authored Date: [id number] [facility] *[facility] Clinical Summary Name ELYSSA ALFREDO Age 66 Years 1955 PCP Jose Martinez MD [id number] Visit Date 05/18/2022 09:42:00 Additional Instructions: Scheduled Appointments?? Future Appointments ?*[facility] ?Phone:??--?Fax:??-- ?Appt. 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 Diagnosis Hyperlipidemia, unspecified; Encounter for other screening for malignant neoplasm of breast Medications: Please continue your medications until treatment is completed or stopped by your provider. Discuss any questions related to medications with your provider. Medications to Continue with No Changes These medications were not printed or sent to your pharmacy Albuterol (Albuterol (Eqv-ProAir HFA)) 2 puff(s) Inhalation every 6 hours. Next Dose: Amlodipine (amLODIPine 10 mg oral tablet) 1 tab(s) Oral Daily. Refills: 3. Next Dose: Aripiprazole (ARIPiprazole 5 mg oral tablet) 1 tab(s) Oral Daily for 90 Days. TO BE COMBINED WITH THE CITALOPRAM THERAPY. Refills: 3. Next Dose: Aspirin (aspirin 81 mg oral delayed release tablet) 81 Milligram Oral Daily for 30 Days. Refills: 11. Next Dose: Atorvastatin (Lipitor 80 mg oral tablet) 1 tab(s) Oral Daily at Bedtime. Refills: 11. Next Dose: Citalopram (citalopram 40 mg oral tablet) 1 tab(s) Oral Daily for 90 Days. Refills: 3. 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 Refills: 0. Next Dose: Ferrous Sulfate (ferrous sulfate 325 mg oral enteric coated tablet) 1 tab(s) Oral twice a day for 90 Days. Refills: 3. Next Dose: formoterol-mometasone (Dulera 100 mcg-5 mcg/inh inhalation aerosol) 2 puff(s) Inhalation twice a day. Refills: 11. Next Dose: Furosemide (furosemide 20 mg oral tablet) 1 tab(s) Oral Daily. Refills: 5. Next Dose: Lorazepam (Ativan 0.5 mg oral tablet) 1 tab(s) Oral Daily at Bedtime as needed as needed for anxiety. Refills: 3. Next Dose: Metoprolol (metoprolol 100 mg oral tablet, extended release) 1.5 tab(s) Oral Daily. Refills: 6. Next Dose: Miscellaneous Rx (DAILY ERICA TABLET) 1 tab(s) Oral Daily. Refills: 3. Next Dose: Multivitamin (Daily Erica oral tablet) TAKE 1 TABLET BY MOUTH EVERY DAY. Refills: 1. Next Dose: Ropinirole (rOPINIRole 0.25 mg oral tablet) TAJE 1 TABLET BY MOUTH AT BEDTIME FOR 1 WEEK THEN INCRAESE TO 2 AT NIGHT FOR 1 WEEK THEN 3 EVERY NIG. Refills: 5. Next Dose: sacubitril-valsartan (Entresto 24 mg-26 mg oral tablet) 1 tab(s) Oral twice a day. Refills: 11. Next Dose: Spironolactone (Aldactone 25 mg oral tablet) 0.5 tablet By Mouth Daily. Refills: 3. Next Dose: Warfarin (warfarin 5 mg oral tablet) Take 1/2 to 1 tablet By Mouth Daily as directed by coumadin clinic. Refills: 2. Next Dose: No Longer Take the Following Medications Morphine (morphine 15 mg/8 to 12 hr oral tablet, extended release) 1 tab(s) Oral every 8 hours as needed Pain , Moderate for 28 Days. On substance agreement evaluated every 3 to 6 months. Refills: 0. Morphine (morphine 15 mg/8 to 12 hr oral tablet, extended release) 1 tab(s) Oral every 12 hours as needed Pain , Moderate. Morphine (morphine 15 mg/8 to 12 hr oral tablet, extended release) 1 tab(s) Oral every 8 hours as needed Pain , Moderate for 28 Days. On substance agreement evaluated every 3 to 6 months. Refills: 0. Allergy Info:?? traZODone; Chantix; Cordran Tape; Nembutal Medications Given This Visit Future Orders ?MM Digital Mammo Screening? Order Date:05/18/22?- Complete on or after?05/18/22 ?ALT? Order Date:05/18/22?- Complete on or after?05/18/22 ?Lipid Panel? Order Date:05/18/22?- Complete on or after?05/18/22 ?AST? Order Date:05/18/22?- Complete on or after?05/18/22 Vital Signs Height 157.48 cm Weight 120.2 kg BMI 48.47 kg/m2 Blood Pressure 110 mm Hg/72 mm Hg Temperature Pulse Rate 64 bpm Respiratory Rate 02 Sat Mode of Delivery 98 %/Room air You can now view a summary of your hospital visit from the comfort of your home through a free online portal called [employer]. [employer] is a website that allows you to securely view your medical information including discharge summary, medications and follow-up visits. ??You can alsosend a secure electronic message to your doctor???s office to request appointments, renew medications or just ask a question. You can enroll at [email or web address] or register during your next office visit. [...] primary care provider, you may find a [facility] provider by calling [facility] at [phone]. For information about the plan of care [...] Care Team Personnel Name: Radha Villela Position: [facility] RN Supv Member Role: Primary Care Nurse Name: Nichole Coates RN Position: [facility] RN Member Role: Primary Care Nurse Name: Ksenia Herzog RN Position: [facility] RN Member Role: Primary Care Nurse Name: Leatha aWlsh RN Position: [facility] RN Member Role: Primary Care Nurse Name: Milagro Sims RN Position: [facility] RN Member Role: Primary Care Nurse Name: Jo Ann Stubbs PharmD Position: [facility] Associate Professional Member Role: Lifetime Consulting Provider Address: Address: [address] [place], [place] [address] [address]- [place] Name: Anne Gonzalez RN Position: [facility] RN Member Role: Primary Care Nurse Name: Mckayla Wilcox RN Position: [facility] RN Member Role: Primary Care Nurse Name: Simin Chen RN Position: [facility] RN Member Role: Primary Care Nurse Name: Jose Martinez MD Position: [facility] Primary Care Physician Member Role: PCP Address: Address: [address] [place] [id number] Name: Aleks Merchant RN Position: [facility] RN Member Role: Primary Care Nurse Name: Genet Bowman RN Position: [facility] SN RN Member Role: Primary Care Nurse Name: Ilana Burns RN Position: [facility] RN Member Role: Primary Care Nurse Care Team Related Persons Name: TUTU ROWLAND Address: home [address] [place] [address] Name: JANET CONNOR Address: home [address] [place] [address]
--- OUTSIDE RECORDS SUMMARY | 2023-08-02 08:33 | XMS_ITS | Continuity of Care Document ---
Author Organization [facility] Address [address] [place] [phone]- Care Team Providers Care Medical Administrative Assistant Name Role Phone Jose Martinez MD Primary Care Physician Encounter [facility] Date(s): 11/17/22 - 11/24/22 [facility] [address] [place] [id number]- Encounter Diagnosis Atrial fibrillation(Discharge Diagnosis) - 11/17/22 Cardiomyopathy(Discharge Diagnosis) - 11/17/22 CHF (congestive heart failure) (HPXN99-70% on echo 2019)(Discharge Diagnosis) - 11/17/22 Coronary artery disease(Discharge Diagnosis) - 11/17/22 Hyperlipidemia(Discharge Diagnosis) - 11/17/22 Obesity (BMI 30-39.9)(Discharge Diagnosis) - 11/17/22 PRINCESS - Obstructive sleep apnea(Discharge Diagnosis) - 11/17/22 Attending Physician: Ruth Kiser MD Referring Physician: [...] 7 01/21/09 Given 1Result Comment: [facility]:[id number] 2Result Comment: [01/19/2018] [id number] 3Admin Note: [employer]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 4Admin Note: [employer]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 5Admin Note: [employer] [facility] 6Admin Note: [employer] 7Admin Note: Novaritis Medications Albuterol (Eqv-ProAir HFA) 2 puffs, Inhalation, Every 6 hours, 0 Refills, Maintenance, 10/13/21 13:54:00 EDT, Partial fill upon patient request if the prescription is for a schedule II opioid drug. Start Date: 10/13/21 Status: Ordered amLODIPine 10 mg oral tablet 1 tablet, By Mouth, Daily, # 90 tablet, 3 Refills, Maintenance, 02/23/22 8:50:00 EST, [facility], 157.48, cm, 01/20/22 14:40:00 EDT, Height, 111, kg, 06/10/21 15:06:00 EDT, Dry Weight Start Date: 02/23/22 Status: Ordered ARIPiprazole 5 mg oral tablet 1, tablet, By Mouth, Daily, X90 DAYS,INSTR:TO BE COMBINED WITH THE CITALOPRAM THERAPY, # 90 tablet,Refills 1, Maintenance, 07/26/22 7:25:00 EDT, Route to Pharmacy Electronically, [facility], 157.48, cm, 05/18/22 9:48:00 EST, Height, 111, kg, 03... Start Date: 07/26/22 Status: Ordered aspirin 81 mg oral delayed release tablet 81 mg, By Mouth, Daily, # 30 tablet, Refills 11, Tot. Refills 11, Maintenance, 06/12/21 9:27:00 EDT, Route to Pharmacy Electronically, [facility], Partial fill upon patient request if the prescription is for a schedule II opioid drug., 1... Start Date: 06/12/21 Stop Date: 06/07/22 Status: Ordered Ativan 0.5 mg oral tablet 1 tablet = 0.5 mg, By Mouth, Daily at bedtime, PRN as needed for anxiety, # 30 tablet, 5 Refills, Maintenance, 10/27/22 13:20:00 EDT, Tablet, [facility]/pharmacy #[id number], Partial fill upon patient request if the prescription is for a schedule II opioid drug.,... Start Date: 10/27/22 Status: Ordered atorvastatin 80 mg oral tablet 1 tablet, By Mouth, Daily at bedtime, # 90 tablet, 1 Refills, Maintenance, 10/12/22 12:22:00 EDT, [facility], 157.48, cm, 08/28/22 9:39:00 EDT, Height, 111, kg, 06/10/21 15:06:00 EDT, Dry Weight Start Date: 10/12/22 Status: Ordered citalopram 40 mg oral tablet 1 tablet, By Mouth, Daily, # 90 tablet, 1 Refills, Maintenance, 06/22/22 14:38:00 EDT, [facility], 157.48, cm, 05/18/22 9:48:00 EST, Height, 111, kg, 06/10/21 15:06:00 EDT, Dry Weight Start Date: 06/22/22 Status: Ordered CPAP Machine See Instructions, # 1 each, Maintenance, AutoCPAP 6-12 cm H20, use Daily when sleeping 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, 12/22/21 11:06:00 EDT, Supply Start Date: 12/22/21 Status: Ordered Daily Erica oral tablet See Instructions, TAKE 1 TABLET BY MOUTH EVERY DAY, # 90 tablet, 1 Refills, [facility], 90, TAKE 1 TABLET BY MOUTH EVERY [...] Refills, Maintenance, 07/08/22 11:55:00 EDT, [facility], 30, INHALE 2 PUFFS TWICE A DAY, 157.48, cm, 05/18/22 9:48:00 EST, Height, 111, kg, 06/10/21 15:06:00 EDT, Dry Weight Start Date: 07/08/22 Status: Ordered Entresto 24 mg-26 mg oral tablet 1 tablet, By Mouth, 2 times a day, # 60 tablet, 11 Refills, Maintenance, 09/21/22 14:36:00 EDT, [facility], 30, TAKE 1 TABLET BY MOUTH TWICE A DAY, 157.48, cm, 08/28/22 9:39:00 EDT, Height, 111,kg, 06/10/21 15:06:00 EDT, Dry Weight Start Date: 09/21/22 Status: Ordered Entresto 24 mg-26 mg oral tablet 1 tablet, By Mouth, 2 times a day, # 60 tablet, 11 Refills, [facility], 30, TAKE 1 TABLET BY MOUTH TWICE A DAY, 157.48, cm, 08/12/21 10:44:00 EDT, Height, 111, kg, 06/10/21 15:06:00 EDT, Dry Weight Start Date: 09/18/21 Status: Ordered ferrous sulfate 325 mg oral enteric coated tablet 1, tablet, By Mouth, 2 times a day, # 180 tablet, Refills 1, Maintenance, 07/26/22 7:26:00 EDT, Route to Pharmacy Electronically, [facility], 157.48, cm, 05/18/22 9:48:00 EST, Height, 111, kg, 06/10/21 15:06:00 EDT, Dry Weight Start Date: 07/26/22 Status: Ordered furosemide 20 mg oral tablet 1, tablet, By Mouth, Daily, # 90 tablet, Refills 1, Maintenance, 07/02/22 8:00:00 EDT, Route to Pharmacy Electronically, [facility], 157.48, cm, 05/18/22 9:48:00 EST, Height, 111, kg, 06/10/21 15:06:00 EDT, Dry Weight Start Date: 07/02/22 Status: Ordered furosemide 20 mg oral tablet 1, tablet, By Mouth, Daily, # 30 tablet, Refills 5, Maintenance, 12/30/21 15:04:00 EDT, Route to Pharmacy Electronically, [facility], 157.48, cm, 11/04/21 11:33:00 EDT, Height, 111, kg, 06/10/2214:06:00 EDT, Dry Weight Start Date: 12/30/21 Status: Ordered Metoprolol Succinate ER 100 mg oral tablet, extended release 1.5 tablet = 150 mg, By Mouth, Daily, # 135 tablet, 3 Refills, Maintenance, 10/12/22 15:26:00 EDT, XL Tablet, [facility]/pharmacy #2339, Partial fill upon patient request if the prescription is for a schedule II opioid drug., 157.48, cm, 08/28/22 9:39:00 EDT... Start Date: 10/12/22 Stop Date: 10/07/23 Status: Ordered rOPINIRole 0.25 mg oral tablet See Instructions, BEREKET 1 TABLET BY MOUTH AT BEDTIME FOR 1 WEEK THEN INCRAESE TO 2 AT NIGHT FOR 1 WEEK THEN 3 EVERY NIG, # 270 tablet, 1 Refills, Maintenance, 06/22/22 14:48:00 EDT, [facility], 157.48, cm, 05/18/22 9:48:00 EST, Height, 111, kg, 03... Start Date: 06/22/22 Status: Ordered spironolactone 25 mg oral tablet 0.5, tablet, By Mouth, Daily, # 45 tablet, Refills 1, Maintenance, 05/21/22 10:15:00 EST, Route to Pharmacy Electronically, [facility], 157.48, cm, 05/18/22 9:48:00 EST, Height, 111, kg, 06/10/21 15:06:00 EDT, Dry Weight Start Date: 05/21/22 Status: Ordered warfarin 5 mg oral tablet See Instructions, Take 1/2 to 1 tablet By Mouth Daily as directed by coumadin clinic, # 90 tablet, 2 Refills, Maintenance, 05/12/22 13:52:00 EST, Tablet, [facility]/pharmacy #[id number], Partial fill upon patientrequest if the prescription is for a schedule II... Start Date: 05/12/22 Status: Ordered Problem List Condition Confirmation Course Effective Dates Status H ealth Status Informant Asthma Confirmed Active Atrial fibrillation Confirmed Active Back pain 1 Confirmed Active Cardiomyopathy Confirmed Active Major depression, chronic Confirmed Active CHF (congestive heart failure) (XCDV07-52% on 2019) Confirmed Active Coronary artery disease Confirmed [...] Clinical Service Informant Atrial fibrillation Discharge Diagnosis 11/17/22 Cardiomyopathy Discharge Diagnosis 11/17/22 CHF (congestive heart failure) (MLKB41-68% on 2019) Discharge Diagnosis 11/17/22 Coronary artery disease Discharge Diagnosis 11/17/22 Hyperlipidemia Discharge Diagnosis 11/17/22 Obesity (BMI 30-39.9) Discharge Diagnosis 11/17/22 PRINCESS - Obstructive sleep apnea Discharge Diagnosis 11/17/22 Vital Signs Most recent to oldest [Reference Range]: 1 Height 157.48 cm (11/17/22 4:49 PM) Weight 129.8 kg (11/17/22 4:49 PM) Oxygen Saturation [94-100 %] 96 % (11/17/22 4:49 PM) Pulse Rate [55-90 bpm] 70 bpm (11/17/22 4:49 PM) Body Mass Index [18.5-24.99 kg/m2] 52.34 kg/m2 *>HHI* (11/17/22 4:49 PM) Blood Pressure [90-138/55-84 mm Hg] 101/ 68mm Hg (11/17/22 4:49 PM) Mode of Delivery (Oxygen) Room air (11/17/22 4:49 PM) Blood pressure sites Arm, left (11/17/22 4:49 PM) Weight Obtained Via Standing scale (11/17/22 4:49 PM) Social History Social History Type Response Smoking Status Former smoker, quit more than 30 days ago; Other: quit June 2021; entered on: 05/18/22 Sex Female EKG study * Event Display: ECG 12-Lead Authored Date: Please click on pdf link to open report * Event Display: ECG 12-Lead Authored Date: Ventricular Rate: 79 BPM Atrial Rate: 326 BPM QRS Duration: 84 ms Q-T Interval: 382 ms QTC Calculation(Bazett): 438 ms R [place]: 14 degrees T [place]: -23 degrees Atrial fibrillation Low voltage QRS Nonspecific T wave abnormality Abnormal ECG When compared with ECG of 24-OCT-2021 15:22, Previous ECG has undetermined rhythm, needs review Nonspecific T wave abnormality has replaced inverted T waves in Anterior leads Confirmed by DIEGO BISHOP MD ([id number]) on 11/20/2022 8:38:57 AM [place]: DIEGO BISHOP MD Cardiology Outpatient Note * Ruth Kiser MD: PERFORM Event Display: Cardiology Note Office Authored Date: Patient: ??ELYSSA ALFREDO ? Age:??67 Years?Sex:??Female?:??1955?? Patient [...] to our last visit,??she was readmitted to [facility] and was noted to have orthostasis??about 2 [...] coronary spasm/SCAD, LVEDP 10-13. Indication for Consult htn History of Present Illness/Interval History No CV complaints. ??She overall has been feeling well.?? No presyncope or syncope.?? No??PND, orthopnea, edema.?? She does have dyspnea on exertion??this is overall improved??prior??visit. ??She gained a fair amount of weight after stopping smoking.?? She is walking and working on getting her weight down. Physical Exam Vitals & Measurements HR:??70??(Peripheral)?? BP:??101/68?? SpO2:??96%?? HT:??157.48??cm?? WT:??129.8??kg?? BMI:??52.34?? Weight lb/oz: 286 lb 3 oz HEENT: EOMI morbidly??obese neck: JVD flat (sitting) Pulm: CTAB Cardiac: RRR no m/r/g GI: soft +BS EXT:??trace edema Neuro:??grossly nonfocal Skin:??warm and dry Psych: alert and coop Assessment/Plan 1.??Atrial fibrillation ?? 2.??Cardiomyopathy ?? 3.??CHF (congestive heart failure) (RCLG80-11% on echo 2019) ?? 4.??Coronary artery disease ?? 5.??HTN (hypertension) Ordered: ECG 12 Lead ?? 6.??Hyperlipidemia ?? 7.??Obesity (BMI 30-39.9) ?? 8.??PRINCESS - Obstructive sleep apnea ?? This is a 65-year-old female for follow [...] telehealth visit she was admitted??early May to [facility] with??acute CHF and an NSTEMI, her [...] Lasixnow and using this prn.?She??has stopped smoking cigarettes.?Unfortunately as a result she has gained significant weight. ??I think consideration for medical weight loss??should be discussed and I asked her to follow-up with her primary care provider. ??She denies PND, orthopnea, edema.??Continued??medication titration??for guideline directed medical therapy. ??Importance of [...] cardiomyopathy based on??those findings and??EKGs. ??Her presentation??to [facility] when she was diagnosed with a cardiomyopathy??notable for rate controlled A. fib. ??I do not think??that she would maintain sinus rhythm??and I do not think that the loss of atrial kick is a contributor in her??persistent symptoms or past??volume overload.?She tolerated increasing Toprol XL to 150 mg p.o. daily. ??She did not have repeat echocardiogram as recommended.?I am reordering that.?She has no CHF on exam. ??She has no significant valvular disease. ??Certainly tobacco cessation is imperative, I congratulated her on stopping smoking and encouraged her to continue??cessation. ??Morbid obesity, sleep apnea??along with other medical problems may be contributors for her symptoms as well as cardiomyopathy.?She denies any palpitations,??presyncope or syncope.?She is on Coumadin -she does not recall??being offered Eliquis, she does not have a contraindication to use and??have asked her to??consider DOAC.??She is on atorvastatin 40 mg p.o. daily which she should continue.?Depending on??persistence of LV dysfunction??should consider??ICD??implantation as well as??cardiac rehab. Allergies Chantix Cordran Tape??(BLISTERS) Nembutal??(Hyperventalating) traZODone??(daytime gogginess) Home Medications Albuterol (Eqv-ProAir HFA), 2 puffs, Inhalation, Every 6 hours amLODIPine 10 mg oral tablet, 1 tablet, By Mouth, Daily ARIPiprazole 5 mg oral tablet, 1 tablet, By Mouth, Daily aspirin 81 mg oral delayed release tablet, [...] mg oral tablet, See Instructions, 2 refills Lab Results Cardiology Labs WBC: 8.9 k/mm3 (02/05/22) RBC:??4.04 m/mm3??Low (02/05/22) Hgb: 12 Gm/dL (02/05/22) Hct: 38.1 % (02/05/22) MCV: 94.3 femtoliters (02/05/22) MCH: 29.7 pg (02/05/22) MCHC:??31.5 g/dL??Low (02/05/22) Platelet Count: 170 k/mm3 (02/05/22) RDW-SD:??52.8 femtoliters??High (02/05/22) Nucleated RBC (Automated): 0 #/100 WBC'S (02/05/22) Abs. Neut: 7 k/mm3 (02/05/22) Abs. Lymph: 1.3 k/mm3 (02/05/22) Abs. [place]: 0.6 k/mm3 (02/05/22) Abs. Eo: 0 k/mm3 (02/05/22) Abs. Baso: 0 k/mm3 (02/05/22) Neut %:??78.6 %??High (02/05/22) [place] %: 6.2 % (02/05/22) Eos %: 0.3 % (02/05/22) Baso %: 0.3 % (02/05/22) Imm Gran: 0.2 % (02/05/22) Abs. Imm Gran: 0 k/mm3 (02/05/22) INR:??3.7??High (11/12/22) Protime (PT):??35.9 seconds??High (11/12/22) APTT: 30.2 seconds (02/05/22) Sodium: 143 mmol/L (07/01/22) Potassium: 5.1 mmol/L (07/01/22) Chloride: 106 mmol/L (07/01/22) Bicarbonate Level: 28 mmol/L (07/01/22) Glucose Level: 81 mg/dL (07/01/22) BUN: 16 mg/dL (07/01/22) Creatinine-Blood: 0.8 mg/dL (07/01/22) Calcium: 9.1 mg/dL (07/01/22) AST (SGOT): 17 units/L (05/18/22) ALT (SGPT): 15 units/L (05/18/22) Nt-Probnp:??483 pg/mL??High (03/26/22) Cholesterol: 122 mg/dL (05/18/22) Triglycerides:??206 mg/dL??High (05/18/22) HDL Cholesterol: 48 mg/dL (05/18/22) LDL Cholesterol: 33 mg/dL (05/18/22) Non HDL Cholesterol: 74 mg/dL (05/18/22) Diagnostic Impression ECG ECG 12-Lead ?? 15:22:57 Please click on pdf link to open report ?? Signed By: Will López MD ?? ECG 12-Lead ?? 15:22:57 Ventricular Rate: 61 BPM Atrial Rate: 326 BPM QRS Duration: 82 ms Q-T Interval: 430 ms QTC Calculation(Bazett): 432 ms R [place]: -1 degrees T [place]: -19 degrees Atrial fibrillation flutter with variable A-V block Abnormal ECG When compared with ECG of 24-OCT-2021 12:08, No significant change ?? Confirmed by WILL LÓPEZ ([id number]) on 10/25/2021 3:08:53 PM ?? [place]: WILL LÓPEZ ?? Signed By: Will López [...] Back pain Cardiomyopathy CHF (congestive heart failure) (RAEV63-07% on echo 2019) Cholecystectomy Continuous opioid dependence [...] Personnel Name: Radha Villela Position: [facility] RN Supv Member Role: Primary Care Nurse Name: Nichole Coates RN Position: [facility] RN Member Role: Primary Care Nurse Name: Ksenia Herzog RN Position: [facility] RN Member Role: Primary Care Nurse Name: Leatha Walsh RN Position: [facility] RN Member Role: Primary Care Nurse Name: Milagro Sims RN Position: [facility] RN Member Role: Primary Care Nurse Name: Jo Ann Stubbs PharmD Position: [facility] Associate Professional Member Role: Lifetime Consulting Provider Address: Address: [address] [place] [phone] [place] Name: Anne Gonzalez RN Position: [facility] RN Member Role: Primary Care Nurse Name: Mckayla Wilcox RN Position: [facility] SN RN Member Role: Primary Care Nurse Name: Simin Chen RN Position: [facility] RN Member Role: Primary Care Nurse Name: Jose Martinez MD Position: [facility] Physician - Primary Care Member Role: PCP Address: Address: [address] [place] [phone]- [place] Name: Aleks Merchant RN Position: [facility] RN Member Role: Primary Care Nurse Name: Genet Bowman RN Position: [facility] SN RN Member Role: Primary Care Nurse Name: Ilana Burns RN Position: [facility] RN Member Role: Primary Care Nurse Care Team Related Persons Name: TUTU ROWLAND Address: [address] [address] Name: JANET CONNOR Address: home [address] [place] [id number]
--- OUTSIDE RECORDS SUMMARY | 2023-08-02 08:33 | XMS_ITS | Continuity of Care Document ---
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 5Admin Note: [facility] 6Admin Note: [employer] 7Admin Note: Novaritis Medications ARIPiprazole 5 mg oral tablet 1, tablet, By Mouth, Daily, TO BE COMBINED WITH THE CITALOPRAM THERAPY, # 90 tablet, Refills 1, Route to Pharmacy Electronically, [facility] 8[facility]84, 162.5, cm, 12/27/20 14:39:00 EDT, Height, 103, kg, 04/10/20 11:20:00 EST, Dry Weight Start Date: 01/16/21 Status: Ordered Ativan 0.5 mg oral tablet 1 tablet = 0.5 mg, By Mouth, 3 times a day, PRN anxiety, # 90 tablet, 2 Refills, Maintenance, 10/14/20 13:39:00 EDT, Tablet, [facility]/pharmacy #2339, 162.5, cm, 05/15/20 10:27:00 EST, Height, 103, kg, 04/10/20 11:20:00 EST, Dry Weight Start Date: 10/14/20 Status: Ordered atorvastatin 40 mg oral tablet 1 tablet = 40 mg, By Mouth, Daily, # 90 tablet, 1 Refills, Maintenance, 11/16/19 10:37:00 EDT, Tablet, [facility]/pharmacy #2339, 156.6, cm, 10/23/19 15:34:00 EDT, Height, Dry Weight Start Date: 11/16/19 Status: Ordered citalopram 40 mg oral tablet 1 tablet, By Mouth, Daily, # 90 tablet, 1 Refills, Maintenance, 10/28/20 14:21:00 EDT, [facility]/pharmacy#2339, 162.5, cm, 05/15/20 10:27:00 EST, Height, [...] 0 Refills, Maintenance, 01/15/21 17:11:00 EDT, Tablet, [facility]/pharmacy #2339, parital fill upon patient request, 162.5, cm, 12/27/20 1... Start Date: 01/15/21 Status: Ordered Dulera 100 mcg-5 mcg/inh inhalation aerosol 2 puffs, Inhalation, 2 times a day, # 13 Unknown, 11 Refills, Maintenance, 07/22/20 7:52:00 EDT, [facility], 30, INHALE 2 PUFFS TWICE A DAY, 162.5, cm, 05/15/20 10:27:00 EST, Height, 103, kg, 04/10/20 11:20:00 EST, Dry Weight Start Date: 07/22/20 Status: Ordered ferrous sulfate 325 mg oral enteric coated tablet 1, tablet, By Mouth, 2 times a day, # 180 tablet, Refills 1, Tot. Refills 0, Maintenance, 10/17/20 7:27:00 EDT, Route to Pharmacy Electronically, [facility] 7[facility], 162.5, cm, 05/15/20 10:27:00 EST, Height, 103, kg, 04/10/20 11:20:00 EST, Dry Weight Start Date: 10/17/20 Status: Ordered lisinopril 10 mg oral tablet 1, tablet, By Mouth, Daily, # 90 tablet, Refills 3, Route to Pharmacy Electronically, [facility] 78[facility], 162.5, cm, 05/15/20 10:27:00 EST, Height, 103, kg, 04/10/20 11:20:00 EST, Dry Weight Start Date: 11/13/20 Status: Ordered Metoprolol Succinate ER 25 mg oral tablet, extended release 1 tablet, By Mouth, Daily, # 90 tablet, 1 Refills, Maintenance, 07/22/20 7:32:00 EDT, [facility] 48797, 162.5, cm, 05/15/20 10:27:00 EST, Height, 103, kg, 04/10/20 11:20:00 EST, Dry Weight Start Date: 07/22/20 Status: Ordered morphine 15 mg/8 to 12 hr oral tablet, extended release 1 tablet = 15 mg, By Mouth, Every 8 hours, PRN Pain , Moderate, On substance agreement evaluated every 3 to 6 months, # 90 tablet, 0 Refills, Maintenance, 01/15/21 17:11:00 EDT, [facility]/pharmacy #2339, parital fill upon patient request, 162.5, cm, 12/27... Start Date: 01/15/21 Stop Date: 02/14/21 Status: Ordered morphine 30 mg/8 to 12 hr oral tablet, extended release 1 tablet = 30 mg, By Mouth, 3 times a day, OPIATE AGREEMENT evaluated every 3 to 6 months, # 84 tablet, 0 Refills, Maintenance, 01/15/21 17:11:00 EDT, [facility]/pharmacy #2339, may fill for less, 162.5, cm, 12/27/20 14:39:00 EDT, Height, 103, kg, 04/10/20... Start Date: 01/15/21 Stop Date: 02/12/21 Status: Ordered Multivitamin Daily, 0 Refills, Maintenance, 05/25/16 13:36:30 Start Date: 05/25/16 Status: Ordered Nicoderm C-Q 21 mg/24 hr transdermal film, extended release 1 patch, Topically, Daily, # 30 patch, 3 Refills, Maintenance, 08/25/19 16:23:00 EDT, Patch, [facility]/pharmacy #2339, 157, cm, 08/25/19 15:55:00 EDT, Height Start Date: 08/25/19 Status: Ordered [facility] use with inhaler [facility] use with inhaler, See Instructions, # [...] tablet, 3 Refills, Maintenance, 10/17/20 12:35:00 EDT, [facility], 162.5, cm, 05/15/20 10:27:00 EST, Height, 103, [...] tablet, 1 Refills, Maintenance, 09/02/20 8:48:00 EDT, [facility] 48[facility], 162.5, cm, 05/15/20 10:27:00 EST, Height, 103, kg, 04/10/20 11:20:00 EST, Dry Weight Start Date: 09/02/20 Status: Ordered Problem List Condition Effective Dates Status Health Status Inform ant Asthma(Confirmed) Active Atrial fibrillation(Confirmed) Active Back pain(Confirmed) 1 Active Major depression, chronic(Confirmed) Active CHF (congestive heart failur e) (RJZN53-04% on echo 2019)(Confirmed) Active Continuous opioid dependence(Confirmed) [...]
--- OUTSIDE RECORDS SUMMARY | 2023-08-02 08:33 | XMS_ITS | Continuity of Care Document ---
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 Refills 11, Maintenance, 07/31/19 14:19:00 EDT, Route to Pharmacy Electronically, [facility]/pharmacy #[id number], 157, cm, 07/31/19 13:53:00 EDT, Height, 1... Start Date: 07/31/19 Status: Ordered Ativan 0.5 mg oral tablet 1 tablet = 0.5 mg, By Mouth, 3 times a day, PRN anxiety, # 90 tablet, 2 Refills, Maintenance, 05/20/20 14:21:00 EST, Tablet, [facility]/pharmacy #2339, 162.5, cm, 05/15/20 10:27:00 EST, Height, 103, kg, 04/10/20 11:20:00 EST, Dry Weight Start Date: 05/20/20 Status: Ordered atorvastatin 40 mg oral tablet 1 tablet = 40 mg, By Mouth, Daily, # 90 tablet, 1 Refills, Maintenance, 11/16/19 10:37:00 EDT, Tablet, [facility]/pharmacy #2339, 156.6, cm, 10/23/19 15:34:00 EDT, Height, Dry Weight Start Date: 11/16/19 Status: Ordered citalopram 40 mg oral tablet 1 tablet, By Mouth, Daily, # 90 tablet, 1 Refills, Maintenance, 04/04/20 11:03:00 EST, [facility]/pharmacy#2339, 162.5, cm, 04/03/20 11:38:00 EST, Height, 108, [...] 0 Refills, Maintenance, 06/10/20 20:16:00 EDT, Tablet, [facility]/pharmacy #2339, parital fill upon patient request, 162.5, cm, 05/15/20 1... Start Date: 06/10/20 Status: Ordered Dulera 100 mcg-5 mcg/inh inhalation aerosol 2 puffs, Inhalation, 2 times a day, # 1 each, 11 Refills, Maintenance, 07/31/19 14:15:00 EDT, Aerosol, [facility]/pharmacy #2339, 2 puffs Inhalation 2 times a day, 157, cm, 07/31/19 13:53:00 EDT, Height, 104, kg, 08/03/17 12:54:00 EDT, Dry Weight Start Date: 07/31/19 Status: Ordered ferrous sulfate 325 mg oral enteric coated tablet 325 mg, By Mouth, 2 times a day, # 60 tablet, Refills 5, Tot. Refills 5, Maintenance, 04/17/20 10:12:00 EST, Route to Pharmacy Electronically, [facility]/pharmacy #2339, 162.5, cm, 04/10/20 11:20:00 EST, Height, 103, kg, 04/10/20 11:20:00 EST, Dry Weight Start Date: 04/17/20 Status: Ordered Lasix 40 mg oral tablet 40 mg, 1, tablet, By Mouth, Daily, # 30 tablet, Refills 5, Tot. Refills 5, Maintenance, 03/11/20 13:11:00 EST, Route to Pharmacy Electronically, [facility]/pharmacy #[id number], 160, cm, 02/28/20 10:28:00 EST, Height, 104, kg, 01/19/20 3:57:00 EDT, Dry Weight Start Date: 03/11/20 Status: Ordered lisinopril 10 mg oral tablet 10 mg, 1, tablet, By Mouth, Daily, # 90 tablet, Refills 1, Tot. Refills 1, Maintenance, 05/20/20 8:39:00 EST, Route to Pharmacy Electronically, [facility]/pharmacy #2339, 162.5, cm, 05/15/20 10:27:00 EST, Height, [...] tablet, 0 Refills, Maintenance, 06/10/20 20:16:00 EDT, [facility]/pharmacy #[id number], parital fill upon patient request, 162.5, cm, 05/15... Start Date: 06/10/20 Stop Date: 07/10/20 Status: Ordered morphine 30 mg/8 to 12 hr oral tablet, extended release 1 tablet = 30 mg, By Mouth, 3 times a day, OPIATE AGREEMENT evaluated every 3 to 6 months, # 84 tablet, 0 Refills, Maintenance, 06/10/20 20:16:00 EDT, [facility]/pharmacy #2339, may fill for less, 162.5, cm, 05/15/20 10:27:00 EST, Height, 103, kg, 04/10/20... Start Date: 06/10/20 Stop Date: 07/08/20 Status: Ordered Multivitamin Daily, 0 Refills, Maintenance, 05/25/16 13:36:30 Start Date: 05/25/16 Status: Ordered Nicoderm C-Q 21 mg/24 hr transdermal film, extended release 1 patch, Topically, Daily, # 30 patch, 3 Refills, Maintenance, 08/25/19 16:23:00 EDT, Patch, [facility]/pharmacy #2339, 157, cm, 08/25/19 15:55:00 EDT, Height Start Date: 08/25/19 Status: [facility] use with inhaler, See Instructions, [...] 9:08:00 EST, Route to Pharmacy Electronically, [facility]/pharmacy #2339, 160, cm, 01/22/20 7:53:00 EST, Height, 104, kg, 01/19/20 3:57:00 EDT, Dry Weight Start Date: 01/22/20 Stop Date: 07/20/20 Status: Ordered Ventolin HFA 108 mcg/inh inhalation aerosol with adapter 2 puffs, Inhalation, 4 times a day, PRN for wheezing, # 8 Gm, 5 Refills, Maintenance, 12/20/19 11:27:00 EDT, Aerosol, [facility]/pharmacy #2339, 156.6, cm, 10/23/19 15:34:00 EDT, Height Start Date: 12/20/19 Status: Ordered warfarin 5 mg oral tablet 0.5 tablet = 2.5 mg, By Mouth, Daily at bedtime, 5mg tablet on Fridays, # 30 tablet, 5 Refills, Maintenance, 02/26/20 12:12:00 EST, Tablet, [facility]/pharmacy #2339, 160, cm, 01/26/20 9:40:00 EST, Height, [...]
--- OUTSIDE RECORDS SUMMARY | 2023-08-02 08:33 | XMS_ITS | Continuity of Care Document ---
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 Refills 11, Maintenance, 06/12/21 9:27:00 EDT, Route to Pharmacy Electronically, [facility], Partial fill upon patient [...] Mouth, Daily, # 90 tablet, 1 Refills, [id number], 162.5, cm, 01/29/21 12:38:00 EST, Height, 103, [...] 1 each, 11 Refills, 06/02/21 14:01:00 EDT, [facility]/pharmacy #[id number], 2 puffs Inhalation 2 times a day, 160, cm, 06/02/21 13:26:00 EDT, Height, 103, kg, 04/10/20 11:20:00 EST, Dry Weight Start Date: 06/02/21 Status: Ordered ferrous sulfate 325 mg oral enteric coated tablet 1, tablet, By Mouth, 2 times a day, # 180 tablet, Refills 1, Route to Pharmacy Electronically, [id number], 162.5, cm, 01/29/21 12:38:00 EST, Height, 103, [...] of lasix that day and call your swaging machine adjuster's office for a... Start Date: 06/12/21 Status: [...] 07/03/21 14:52:00 EDT, Route to Pharmacy Electronically, [facility]/pharmacy #[id number], Partial fill upon patient requestif the prescription is for a schedule II opioid kal... Start Date: 07/03/21 Status: Ordered metoprolol 50 mg oral tablet, extended release 50 mg, 1, tablet, By Mouth, Daily, take in addition to 25mg tab daily total 75mg daily, # 30 tablet, Refills 6, Tot. Refills 6, Maintenance, 07/25/21 8:35:00 EDT, Route to Pharmacy Electronically, [facility]/pharmacy #2339, Partial fill upon patient request... Start Date: 07/25/21 Status: Ordered Metoprolol Succinate ER 25 mg oral tablet, extended release 1 tablet, By Mouth, Daily, take in addition to 50mg tab, total 75mg daily, # 30 tablet, 6 Refills, Maintenance, 07/25/21 8:35:00 EDT, [facility]/pharmacy #2339, 157.48, cm, 07/01/21 11:10:00 EDT, Height, 111, kg, 06/10/21 15:06:00 EDT, Dry Weight Start Date: 07/25/21 Status: Ordered morphine 15 mg/8 to 12 hr oral tablet, extended release 1 tablet = 15 mg, By Mouth, Every 8 hours, PRN Pain , Moderate, On substance agreement evaluated every 3 to 6 months, # 84 tablet, 0 Refills, Maintenance, 06/25/21 16:52:00 EDT, [facility]/pharmacy #2339, parital fill upon patient request, 157.48, cm, 05/21... Start Date: 06/25/21 Stop Date: 07/23/21 Status: [...] 5 Refills, Maintenance, 06/09/21 15:31:00 EDT, Tablet, [facility]/pharmacy #2339, Partial fill [...] 9:27:00 EDT, Tablet, [facility], Partial fill upon patient request if the prescription is for a... Start Date: 06/12/21 Status: Ordered Problem List Condition Effective Dates Status Health Status Inform ant Asthma(Confirmed) Active Atrial fibrillation(Confirmed) Active Back pain(Confirmed) 1 Active Major depression, chronic(Confirmed) Active CHF (congestive heart failur e) (JSBI04-94% on 2019)(Confirmed) Active Continuous opioid dependence(Confirmed) Active [...]
--- OUTSIDE RECORDS SUMMARY | 2023-08-02 08:33 | XMS_ITS | Continuity of Care Document ---
Author Organization [facility] Address [address] [place] [address]- Care Team Providers Care Component Lab Tech Name Role Phone Jose Martinez MD Primary Care Physician Encounter [facility] Date(s): 06/22/23 - 07/22/23 [facility] [address] [place] [address]- Attending Physician: Annetta Steinberg Admitting Physician: Annetta Steinberg Referring Physician: Admtr, Ar8 Allergies, Adverse Reactions, [...] inactive(oldterm) 8 01/21/09 Given 1Result Comment: [facility]:[id number] 2Result Comment: [facility]:[id number] 3Result Comment: [01/19/2018] [id number] 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 Start Date: 04/01/23 Status: Ordered aspirin 81 mg oral delayed release tablet 81 mg, By Mouth, Daily, # 30 tablet, Refills 11, Tot. Refills 11, Maintenance, 06/12/21 9:27:00 EDT, Route to Pharmacy Electronically, [facility], Partial fill upon patient request if the prescription is for a schedule II opioid drug., 1... Start Date: 06/12/21 Stop Date: 06/07/22 Status: Ordered Ativan 0.5 mg oral tablet 1 tablet = 0.5 mg, By Mouth, Daily at bedtime, PRN as needed for anxiety, # 30 tablet, 5 Refills, Maintenance, 05/25/23 10:30:00 EST, Tablet, [facility]/pharmacy #2339, Partial fill upon patient request if the prescription is for a schedule II opioid drug.,... Start Date: 05/25/23 Status: Ordered atorvastatin 80 mg oral tablet 1 tablet, By Mouth, Daily at bedtime, # 90 tablet, 1 Refills, Maintenance, 10/12/22 12:22:00 EDT, [facility], 157.48, cm, 08/28/22 9:39:00 EDT, Height, 111, [...] Refills, Maintenance, 04/28/23 7:10:00 EST, [facility], 157.48, cm, 04/19/23 8:28:00 EST, Height, 111, [...] # 90 tablet, 1 Refills, [facility], 90, TAKE 1 TABLET BY MOUTH EVERY [...] each, 11 Refills, Maintenance, 07/08/22 11:55:00 EDT, [facility] 26[facility], 30, INHALE 2 PUFFS TWICE A DAY, 157.48, cm, 05/18/22 9:48:00 EST, Height, 111, kg, 06/10/21 15:06:00 EDT, Dry Weight Start Date: 07/08/22 Status: Ordered Eliquis 5 mg oral tablet 1 tablet = 5 mg, By Mouth, 2 times a day, # 180 tablet, 11 Refills, Maintenance, 06/25/23 9:17:00 EDT, Tablet, [facility]/pharmacy #2339, Partial fill upon patient request if the prescription is for a schedule II opioid drug., 154, cm, 06/25/23 9:05:00 EDT,... Start Date: 06/25/23 Status: Ordered ferrous sulfate 325 mg oral enteric coated tablet 1, tablet, By Mouth, 2 times a day, # 180 tablet, Refills 1, Maintenance, 07/26/22 7:26:00 EDT, Route to Pharmacy Electronically, [facility] 7[facility], 157.48, cm, 05/18/22 9:48:00 EST, Height, 111, kg, 06/10/21 15:06:00 EDT, Dry Weight Start Date: 07/26/22 Status: Ordered furosemide 20 mg oral tablet 20 mg, 1, tablet, By Mouth, Daily, PRN, ONLY NEEDED for leg swelling or > 5 lbs weight gain, # 30 tablet, Refills 0, Tot. Refills 0, Maintenance, Other, 06/25/23 9:21:00 EDT, Route to Pharmacy Electronically, [facility]/pharmacy #2339, Partial fill upon p... Start Date: 06/25/23 Status: Ordered LORazepam 0.5 mg oral tablet 30 each, 0 Refill(s), TAKE 1 TABLET BY MOUTH EVERY DAY NEEDED FOR ANXIETY AT BEDTIME, 0 Refills,06/22/23 8:03:00 EDT, Partial fill upon patient request if the prescription is for a schedule II opioid drug. Start Date: 06/22/23 Status: Ordered metoprolol 200 mg oral tablet, extended release 1 tablet = 200 mg, By Mouth, Daily, # 90 tablet, 0 Refills, Maintenance, 06/25/23 9:15:00 EDT, ER Tablet, [facility]/pharmacy #2339, Dose increase, 154, cm, 06/25/23 9:05:00 EDT, Height Start Date: 06/25/23 Status: Ordered Metoprolol Succinate ER 200 mg oral tablet, extended release 1 tablet, By Mouth, Daily, # 90 tablet, 0 Refills, Maintenance, 07/19/23 15:33:00 EDT, [facility], 154, cm, 06/25/23 9:05:00 EDT, Height Start Date: 07/19/23 Status: Ordered rOPINIRole 0.25 mg oral tablet 3 tablet = 0.75 mg, By Mouth, Daily at bedtime, # 270 tablet, 3 Refills, Maintenance, 07/20/23 10:38:00 EDT, [facility]/pharmacy #2339, 154, cm, 06/25/23 9:05:00 EDT, Height Start Date: 07/20/23 Status: Ordered sacubitril-valsartan 97 mg-103 mg oral tablet 1 tablet, By Mouth, 2 times a day, # 180 tablet, 1 Refills, Maintenance, 07/21/23 13:19:00 EDT, Tablet, [facility]/pharmacy #2339, This is an increased dose, 1 tablet By Mouth 2 times a day,x90 days, 154, cm, 06/25/23 9:05:00 EDT, Height Start Date: 07/21/23 Stop Date: 01/17/24 Status: Ordered spironolactone 25 mg oral tablet 25 mg, 1, tablet, By Mouth, Daily, # 90 tablet, Refills 3, Tot. Refills 3, Maintenance, 05/27/23 11:09:00 EST, Route to Pharmacy Electronically, [facility]/pharmacy #2339, 157.48, cm, 05/21/23 12:45:00 EST,Height, 111, kg, 06/10/21 15:06:00 EDT, Dry Weight Start Date: 05/27/23 Status: Ordered Problem List Condition Confirmation Course Effective Dates Status H ealth Status Informant Asthma Confirmed Active Atrial fibrillation Confirmed Active Back pain 1 Confirmed Active Cardiomyopathy Confirmed Active Major depression, chronic Confirmed Active CHF (congestive heart failure) (KSGT20-39% on echo 2019) Confirmed Active Coronary artery [...] Villela Position: [facility] RN Supv Member Role: Primary Care Nurse Name: Nichole Coates RN Position: [facility] SN RN Member Role: Primary Care Nurse Name: Ksenia Herzog RN Position: [facility] RN Member Role: Primary Care Nurse Name: Leatha Walsh RN Position: [facility] RN Member Role: Primary Care Nurse Name: Milagro Sims RN Position: [facility] ANGEL Nurse Member Role: Primary Care Nurse Name: Jo Ann Stubbs PharmD Position: [facility] Associate Professional Member Role: [employer] Consult[employer] Provider Address: Address: [address] [place] [address] Name: Anne Gonzalez RN Position: [facility] RN Member Role: Primary Care Nurse Name: Mckayla Wilcox RN Position: [facility] SN RN Member Role: Primary Care Nurse Name: Simin Chen RN Position: [facility] RN Member Role: Primary Care Nurse Name: Jose Martinez MD Position: [facility] Physician - Primary Care Member Role: PCP Address: Address: [address] [place], [place] [address] [address]- Name: Aleks Merchant RN Position: S RN Member Role: Primary Care Nurse Name: Genet Bowman RN Position: [facility] RN Member Role: Primary Care Nurse Name: Ilana Burns RN Position: S RN Member Role: Primary Care Nurse Care Team Related Persons Name: TUTU ROWLAND Address: home [address] [place] [address] Name: JANET CONNOR Address: home [address] [place] [id number]
--- OUTSIDE RECORDS SUMMARY | 2023-08-02 08:33 | XMS_ITS | Continuity of Care Document ---
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 Refills 11, Maintenance, 07/31/19 14:19:00 EDT, [facility], cm, 07/31/19 13:53:00 EDT, Height, 1... Start Date: 07/31/19 Status: Ordered Ativan 0.5 mg oral tablet 1 tablet = 0.5 mg, By Mouth, 3 times a day, PRN anxiety, # 90 tablet, 2 Refills, Maintenance, 02/26/20 20:28:00 EST, Tablet, [facility], 160, cm, 01/26/20 9:40:00 EST, Height, 104, kg, 01/19/20 3:57:00 EDT, Dry Weight Start Date: 02/26/20 Status: Ordered atorvastatin 40 mg oral tablet 1 tablet = 40 mg, By Mouth, Daily, # 90 tablet, 1 Refills, Maintenance, 11/16/19 10:37:00 EDT, Tablet, [facility], 156.6, cm, 10/23/19 15:34:00 EDT, Height, Dry Weight Start Date: 11/16/19 Status: Ordered citalopram 40 mg oral tablet 1 tablet, By Mouth, Daily, # 90 tablet, 1 Refills, Maintenance, 10/03/19 13:25:00 EDT, [facility], 157, cm, 08/25/19 15:55:00 EDT, Height Start [...] 0 Refills, Maintenance, 02/07/20 16:16:00 EST, Tablet, [facility]/pharmacy #2339, parital fill upon patient request, 160, cm, 01/26/20 9:4... Start Date: 02/07/20 Status: Ordered Dulera 100 mcg-5 mcg/inh inhalation aerosol 2 puffs, Inhalation, 2 times a day, # 1 each, 11 Refills, Maintenance, 07/31/19 14:15:00 EDT, Aerosol, [facility]/pharmacy #2339, 2 puffs Inhalation 2 times a day, 157, cm, 07/31/19 13:53:00 EDT, Height, 104, kg, 08/03/17 12:54:00 EDT, Dry Weight Start Date: 07/31/19 Status: Ordered ferrous sulfate 325 mg oral enteric coated tablet 325 mg, By Mouth, 2 times a day, # 60 tablet, Refills 1, Tot. Refills 1, Maintenance, 03/14/20 13:59:00 EST, Route to Pharmacy Electronically, [facility]/pharmacy #2339, 160, cm, 02/28/20 10:28:00 EST, Height, 104, kg, 01/19/20 3:57:00 EDT, Dry Weight Start Date: 03/14/20 Status: Ordered Lasix 40 mg oral tablet 40 mg, 1, tablet, By Mouth, Daily, # 30 tablet, Refills 5, Tot. Refills 5, Maintenance, 03/11/20 13:11:00 EST, Route to Pharmacy Electronically, [facility]/pharmacy #2339, 160, cm, 02/28/20 10:28:00 EST, Height, 104, kg, 01/19/20 3:57:00 EDT, Dry Weight Start Date: 03/11/20 Status: Ordered lisinopril 10 mg oral tablet 10 mg, 1, tablet, By Mouth, Daily, # 90 tablet, Refills 0, Tot. Refills 0, Maintenance, 02/26/20 14:41:00 EST, Route to Pharmacy Electronically, [facility]/pharmacy #2339, Partial fill upon [...] tablet, 0 Refills, Maintenance, 03/11/20 15:21:00 EST, [facility]/pharmacy #2339, parital fill upon patient request, 160, cm, ... Start Date: 03/11/20 Stop Date: 04/10/20 Status: Ordered morphine 30 mg/8 to 12 hr oral tablet, extended release 1 tablet = 30 mg, By Mouth, 3 times a day, OPIATE AGREEMENT evaluated every 3 to 6 months, # 84 tablet, 0 Refills, Maintenance, 02/07/20 16:16:00 EST, [facility]/pharmacy #2339, may fill for less, 160, cm, 01/26/20 9:40:00 EST, Height, 104, kg, 01/19/20 3:5... Start Date: 02/07/20 Stop Date: 03/06/20 Status: Ordered Multivitamin Daily, 0 Refills, Maintenance, 05/25/16 13:36:30 Start Date: 05/25/16 Status: Ordered Nicoderm C-Q 21 mg/24 hr transdermal film, extended release 1 patch, Topically, Daily, # 30 patch, 3 Refills, Maintenance, 08/25/19 16:23:00 EDT, Patch, [facility]/pharmacy #2339, 157, cm, 08/25/19 15:55:00 EDT, Height Start Date: 08/25/19 Status: [facility], See Instructions, # [...] 01/22/20 9:08:00 EST, Route to Pharmacy Electronically, [facility]/pharmacy #2339, 160, cm, 01/22/20 7:53:00 EST, Height, 104, kg, 01/19/20 3:57:00 EDT, Dry Weight Start Date: 01/22/20 Stop Date: 07/20/20 Status: Ordered Ventolin HFA 108 mcg/inh inhalation aerosol with adapter 2 puffs, Inhalation, 4 times a day, PRN for wheezing, # 8 Gm, 5 Refills, Maintenance, 12/20/19 11:27:00 EDT, Aerosol, [facility]/pharmacy #2339, 156.6, cm, 10/23/19 15:34:00 EDT, Height Start Date: 12/20/19 Status: Ordered warfarin 5 mg oral tablet 1 tablet = 5 mg, By Mouth, Daily, # 30 tablet, 5 Refills, Maintenance, 02/26/20 12:12:00 EST, Tablet, [facility]/pharmacy #2339, 160, cm, 01/26/20 [...]
--- OUTSIDE RECORDS SUMMARY | 2023-08-02 08:33 | XMS_ITS | Continuity of Care Document ---
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 Refills 11, Maintenance, 07/31/19 14:19:00 EDT, Route to Pharmacy Electronically, [facility]/pharmacy #[id number], 157, cm, 07/31/19 13:53:00 EDT, Height, 1... Start Date: 07/31/19 Status: Ordered Ativan 0.5 mg oral tablet 1 tablet = 0.5 mg, By Mouth, 3 times a day, PRN anxiety, # 90 tablet, 2 Refills, Maintenance, 02/26/20 20:28:00 EST, Tablet, [facility]/pharmacy #[id number], 160, cm, 01/26/20 9:40:00 EST, Height, 104, kg, 01/19/20 3:57:00 EDT, Dry Weight Start Date: 02/26/20 Status: Ordered atorvastatin 40 mg oral tablet 1 tablet = 40 mg, By Mouth, Daily, # 90 tablet, 1 Refills, Maintenance, 11/16/19 10:37:00 EDT, Tablet, [facility]/pharmacy #2339, 156.6, cm, 10/23/19 15:34:00 EDT, Height, Dry Weight Start Date: 11/16/19 Status: Ordered citalopram 40 mg oral tablet 1 tablet, By Mouth, Daily, # 90 tablet, 1 Refills, Maintenance, 04/04/20 11:03:00 EST, [facility]/pharmacy#2339, 162.5, cm, 04/03/20 11:38:00 EST, Height, 108, [...] 0 Refills, Maintenance, 04/01/20 14:41:00 EST, Tablet, [facility]/pharmacy #[id number], parital fill upon patient request, 160, cm, 02/28/20 10:... Start Date: 04/01/20 Status: Ordered Dulera 100 mcg-5 mcg/inh inhalation aerosol 2 puffs, Inhalation, 2 times a day, # 1 each, 11 Refills, Maintenance, 07/31/19 14:15:00 EDT, Aerosol, [facility]/pharmacy #[id number], 2 puffs Inhalation 2 times a day, 157, cm, 07/31/19 13:53:00 EDT, Height, 104, kg, 08/03/17 12:54:00 EDT, Dry Weight Start Date: 07/31/19 Status: Ordered ferrous sulfate 325 mg oral enteric coated tablet 325 mg, By Mouth, 2 times a day, # 60 tablet, Refills 1, Tot. Refills 1, Maintenance, 03/14/20 13:59:00 EST, Route to Pharmacy Electronically, [facility]/pharmacy #[id number], 160, cm, 02/28/20 10:28:00 EST, Height, 104, kg, 01/19/20 3:57:00 EDT, Dry Weight Start Date: 03/14/20 Status: Ordered Lasix 40 mg oral tablet 40 mg, 1, tablet, By Mouth, Daily, # 30 tablet, Refills 5, Tot. Refills 5, Maintenance, 03/11/20 13:11:00 EST, Route to Pharmacy Electronically, [facility]/pharmacy #[id number], 160, cm, 02/28/20 10:28:00 EST, Height, 104, kg, 01/19/20 3:57:00 EDT, Dry Weight Start Date: 03/11/20 Status: Ordered lisinopril 10 mg oral tablet 10 mg, 1, tablet, By Mouth, Daily, # 90 tablet, Refills 0, Tot. Refills 0, Maintenance, 02/26/20 14:41:00 EST, [id number] fill upon patient request [...] tablet, 0 Refills, Maintenance, 03/11/20 15:21:00 EST, [facility]/pharmacy #[id number], parital fill upon patient request, 160, cm, ... Start Date: 03/11/20 Stop Date: 04/10/20 Status: Ordered morphine 30 mg/8 to 12 hr oral tablet, extended release 1 tablet = 30 mg, By Mouth, 3 times a day, OPIATE AGREEMENT evaluated every 3 to 6 months, # 84 tablet, 0 Refills, Maintenance, 04/01/20 14:41:00 EST, [facility]/pharmacy #[id number], may fill for less, 160, cm, 02/28/20 10:28:00 EST, Height, 106, kg, 04/01/20 10... Start Date: 04/01/20 Stop Date: 04/29/20 Status: Ordered Multivitamin Daily, 0 Refills, Maintenance, 05/25/16 13:36:30 Start Date: 05/25/16 Status: Ordered Nicoderm C-Q 21 mg/24 hr transdermal film, extended release 1 patch, Topically, Daily, # 30 patch, 3 Refills, Maintenance, 08/25/19 16:23:00 EDT, Patch, [facility]/pharmacy #[id number], 157, cm, 08/25/19 15:55:00 EDT, Height Start Date: 08/25/19 Status: Ordered [facility] use with inhaler [facility] use with inhaler, See Instructions, # 1 [...] 01/22/20 9:08:00 EST, Route to Pharmacy Electronically, [facility]/pharmacy #[id number], 160, cm, 01/22/20 7:53:00 EST, Height, 104, kg, 01/19/20 3:57:00 EDT, Dry Weight Start Date: 01/22/20 Stop Date: 07/20/20 Status: Ordered Ventolin HFA 108 mcg/inh inhalation aerosol with adapter 2 puffs, Inhalation, 4 times a day, PRN for wheezing, # 8 Gm, 5 Refills, Maintenance, 12/20/19 11:27:00 EDT, Aerosol, [facility]/pharmacy #2339, 156.6, cm, 10/23/19 15:34:00 EDT, Height Start Date: 12/20/19 Status: Ordered warfarin 5 mg oral tablet 0.5 tablet = 2.5 mg, By Mouth, Daily at bedtime, 5mg tablet on Fridays, # 30 tablet, 5 Refills, Maintenance, 02/26/20 12:12:00 EST, Tablet, [facility]/pharmacy #[id number], 160, cm, 01/26/20 9:40:00 EST, [...] oldest [Reference Range]: 1 Height 162.5 cm (04/03/20 11:38 AM) Weight 108 kg (04/03/20 11:38 AM) Body Mass Index [18.5-24.99] 40.9 *>HHI* (04/03/20 11:38 AM) Temperature [96.8-100.4 DegF] 98.2 DegF (04/03/20 11:38 AM) Social History Social History Type Response Smoking Status 5-9 cigarettes (betw een 1/4 to 1/2 pack)/day in last 30 days; Other: Started at 23 years old; entered on: 01/18/20 Sex
--- OUTSIDE RECORDS SUMMARY | 2023-08-02 08:33 | XMS_ITS | Continuity of Care Document ---
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 Refills 11, Maintenance, 07/31/19 14:19:00 EDT, Route to Pharmacy Electronically, [facility]/pharmacy #[id number], 157, cm, 07/31/19 13:53:00 EDT, Height, 1... Start Date: 07/31/19 Status: Ordered amLODIPine 5 mg oral tablet 5 mg, 1, tablet, By Mouth, Daily, # 90 tablet, Refills 0, Tot. 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 Refills 0, Maintenance, 08/04/17 9:05:52 EDT, Route to Pharmacy Electronically, [id number], [facility] 3 Start Date: 08/04/17 Status: Ordered Ativan [...] 5 Refills, Maintenance, 09/17/19 11:30:00 EDT, Tablet, [facility]/pharmacy [id number], 157, cm, 08/25/19 15:55:00 EDT, Height, Dry Weight Start Date: 09/17/19 Status: Ordered citalopram 40 mg oral tablet 1 tablet, By Mouth, Daily, # 90 tablet, 1 Refills, Maintenance, 10/03/19 13:25:00 EDT, [facility] STORE [facility], 157, cm, 08/25/19 15:55:00 EDT, Height Start [...] 0 Refills, Maintenance, 10/02/19 15:43:00 EDT, Tablet, [id number], parital fill upon [...] tablet, 0 Refills, Maintenance, 10/10/19 14:02:00 EDT, [facility]/pharmacy #2339, parital fill upon patient request, 157, cm, ... Start Date: 10/10/19 Stop Date: 11/09/19 Status: Ordered morphine 30 mg/8 to 12 hr oral tablet, extended release 1 tablet = 30 mg, By Mouth, 3 times a day, OPIATE AGREEMENT evaluated every 3 to 6 months, # 84 tablet, 0 Refills, Maintenance, 10/10/19 14:02:00 EDT, [facility]/pharmacy #2339, may fill for less, 157, [...] 0 Refills, Soft Stop, 05/10/19 16:02:00 EST, [facility]/pharmacy #2339, 157, cm, 04/21/19 10:26:00 EST, Height, 104, kg, 08/03/17 12:... Start Date: 05/10/19 Status: Ordered Nicoderm C-Q 21 mg/24 hr transdermal film, extended release 1 patch, Topically, Daily, # 30 patch, 3 Refills, Maintenance, 08/25/19 16:23:00 EDT, Patch, [facility]/pharmacy #2339, 157, cm, 08/25/19 15:55:00 EDT, Height Start Date: 08/25/19 Status: Ordered [facility] use with inhaler [facility] use with inhaler, See [...] 14:55:12 EDT, Aerosol, Route to Pharmacy Electronically, [id number], [facility]/pharmacy #2339 Start Date: 10/28/18 Status: Ordered [...] 10/23/19 15:22:00 EDT, Route to Pharmacy Electronically, [facility]/pharmacy #2339, 156.5, cm, 10/20/19 16:01:00 EDT, Height Start Date: 10/23/19 Status: Ordered torsemide 5 mg oral tablet 1 tablet = 5 mg, By Mouth, Daily, # 30 tablet, 11 Refills, Maintenance, 10/20/19 16:34:00 EDT, [facility]/pharmacy #2339, 156.5, cm, 10/20/19 16:01:00 EDT, [...]
--- OUTSIDE RECORDS SUMMARY | 2023-08-02 08:34 | XMS_ITS | Continuity of Care Document ---
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 Refills 1, Maintenance, 09/02/18 11:06:29 EDT, Route to Pharmacy Electronically, [id number], [id number] Start Date: 09/02/18 Stop Date: 03/01/19 [...] 08/04/17 9:05:52 EDT, Route to Pharmacy Electronically, [id number], [facility] 3 Start Date: 08/04/17 Status: Ordered Ativan 0.5 mg oral tablet 1 tablet = 0.5 mg, By Mouth, 3 times a day, PRN anxiety, # 90 tablet, 2 Refills, Maintenance, 03/20/19 16:41:00 EST, Tablet, [facility]/pharmacy #2339, 157, cm, 01/13/19 9:10:00 EDT, Height, 104, kg, 08/03/17 12:54:00 EDT, Dry Weight Start Date: 03/20/19 Status: Ordered atorvastatin 40 mg oral tablet 1 tablet = 40 mg, By Mouth, Daily, # 30 tablet, 5 Refills, Maintenance, 03/20/19 15:53:00 EST, Tablet, [facility]/pharmacy #2339, 157, cm, 01/13/19 9:10:00 EDT, Height, 104, kg, 08/03/17 12:54:00 EDT, Dry Weight Start Date: 03/20/19 Status: Ordered CeleXA 40 mg oral tablet 1, tablet, By Mouth, Daily, # 90 tablet, Refills 1, Tot. Refills 1, Maintenance, 03/20/19 16:10:00 EST, Route to Pharmacy Electronically, [facility]/pharmacy #2339, 157, cm, 01/13/19 9:10:00 EDT, Height, [...] 0 Refills, Maintenance, 03/13/19 12:38:00 EST, Tablet, [id number], parital fill upon patient request, 03/14/19, 157, cm, 10... Start Date: 03/13/19 Status: Ordered morphine 15 mg/8 to 12 hr oral tablet, extended release 1 tablet = 15 mg, By Mouth, Every 8 hours, PRN Pain , Moderate, On substance agreement evaluated every 3 to 6 months, # 90 tablet, 0 Refills, Maintenance, 04/12/19 9:47:00 EST, [id number], parital fill upon patient request, 04/12/19, 157, cm... Start Date: 04/12/19 Stop Date: 05/12/19 Status: Ordered morphine 30 mg/8 to 12 hr oral tablet, extended release 1 tablet = 30 mg, By Mouth, 3 times a day, OPIATE AGREEMENT evaluated every 3 to 6 months, # 84 tablet, 0 Refills, Maintenance, 03/13/19 12:38:00 EST, [facility], may fill for less, 03/14/19,157, cm, [...] EDT, Patch Start Date: 06/29/18 Status: Ordered [facility] use with inhaler [facility] use with inhaler, See Instructions, [...] 14:55:12 EDT, Aerosol, Route to Pharmacy Electronically, [id number], [facility]/pharmacy #[id number] Start Date: 10/28/18 Status: Ordered Ventolin HFA [...]
--- OUTSIDE RECORDS SUMMARY | 2023-08-02 08:34 | XMS_ITS | Continuity of Care Document ---
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 Start Date: 08/06/21 Stop Date: 08/01/22 Status: Ordered aspirin 81 mg oral delayed release tablet 81 mg, By Mouth, Daily, # 30 tablet, Refills 11, Tot. Refills 11, Maintenance, 06/12/21 9:27:00 EDT, Route to Pharmacy Electronically, [facility] 3, Partial fill upon patient request if the prescription is for a schedule II opioid drug., 1... Start Date: 06/12/21 Stop Date: 06/07/22 Status: Ordered Ativan 0.5 mg oral tablet 1 tablet = 0.5 mg, By Mouth, Daily at bedtime, PRN as needed for anxiety, # 30 tablet, 1 Refills, Maintenance, 11/25/21 15:15:00 EDT, Tablet, [facility]/pharmacy #2339, Partial fill upon patient request if the prescription is for a schedule II opioid drug.,... Start Date: 11/25/21 Status: Ordered citalopram 40 mg oral tablet 1 tablet, By Mouth, Daily, for 90 days, # 90 tablet, 3 Refills, Physician Stop 08/01/22 9:01:00 EDT, 08/06/21 9:01:00 EDT, [facility]/pharmacy #2339, 157.48, cm, 08/05/21 [...] EVERY DAY, # 90 tablet, 1 Refills, [facility] STORE 48083, 90, TAKE 1 TABLET BY MOUTH EVERY [...] a day, # 60 tablet, 11 Refills, [facility] STORE 666[facility], 30, TAKE 1 TABLET BY MOUTH TWICE [...] 08/06/21 9:01:00 EDT, Route to Pharmacy Electronically, [facility]/pharmacy #2339, 157.48, cm, 08/05/21 14:31:00 EDT, Height, 111,... Start Date: 08/06/21 Stop Date: 08/01/22 Status: Ordered furosemide 20 mg oral tablet 1, tablet, By Mouth, Daily, # 30 tablet, Refills 1, Maintenance, 12/02/21 12:39:00 EDT, Route to Pharmacy Electronically, [facility] STORE 24423, 157.48, cm, 11/04/21 11:33:00 EDT, Height, 111, kg, 06/10/2214:06:00 EDT, Dry Weight Start Date: 12/02/21 Status: Ordered Lipitor 80 mg oral tablet 1 tablet = 80 mg, By Mouth, Daily at bedtime, # 30 tablet, 11 Refills, Maintenance, 06/12/21 9:27:00 EDT, Tablet, [facility] 3, Partial fill upon patient request if the prescription is for a schedule II opioid drug., 157.48, cm, 06/10/21 1... Start Date: 06/12/21 Status: Ordered metoprolol 100 mg oral tablet, extended release 100 mg, 1, tablet, By Mouth, Daily, # 90 tablet, Refills 3, Tot. Refills 3, Maintenance, 09/11/21 12:08:00 EDT, Route to Pharmacy Electronically, [facility]/pharmacy #2339, 157.48, cm, 08/12/21 [...] tablet, 0 Refills, Maintenance, 08/19/21 14:03:00 EDT, [facility]/pharmacy #2339, parital fill upon patient request, 157.48, cm, 07/21... Start Date: 08/19/21 Stop Date: 09/16/21 Status: Ordered morphine 15 mg/8 to 12 hr oral tablet, extended release 1 tablet = 15 mg, By Mouth, Every 8 hours, PRN Pain , Moderate, On substance agreement evaluated every 3 to 6 months, # 84 tablet, 0 Refills, Maintenance, 11/25/21 15:15:00 EDT, [facility]/pharmacy #2339, parital fill upon [...] tablet, 1 Refills, Maintenance, 11/25/21 12:04:00 EDT, [facility] STORE 83436, 157.48, cm, 11/04/21 11:33:00 EDT, Height, 111, kg, 03... Start Date: 11/25/21 Status: Ordered warfarin 5 mg oral tablet 0.5 tablet = 2.5 mg, By Mouth, Daily, Goal INR 2-3 Please follow up with your coumadin clinic, # 15tablet, 0 Refills, Maintenance, 06/12/21 9:27:00 EDT, Tablet, [facility], Partial fill upon patient request if the prescription is for a... Start Date: 06/12/21 Status: Ordered Problem List Condition Confirmation Course Effective Dates Status H ealth Status Informant Asthma Confirmed Active Atrial fibrillation Confirmed Active Back pain 1 Confirmed Active Major depression, chronic Confirmed Active CHF (congestive heart failure) (ROVE51-64% on echo 2019) Confirmed Active Continuous opioid [...] Name: Jose Martinez MD Address: Address: [address], [place] [address]
--- OUTSIDE RECORDS SUMMARY | 2023-08-02 08:34 | XMS_ITS | Continuity of Care Document ---
Author Organization [facility] Adult Address [address] [place] [address]- Care Team Providers Care Funeral Pre Need Consultant Name Role Phone Jose Martinez MD Primary Care Physician [facility]23 - 05/28/23 [facility] [address] [place] [address]- Encounter Diagnosis Encounter for Medicare annual wellness exam(Discharge Diagnosis) - 05/22/23 Atrial fibrillation(Discharge Diagnosis) - 05/22/23 CHF (congestive heart failure) (DRTM21-98% on echo 2019)(Discharge Diagnosis) - 05/22/23 Cardiomyopathy(Discharge Diagnosis) - 05/22/23 Severe obesity(Discharge Diagnosis) - 05/22/23 Secondary hypercoagulable state(Discharge Diagnosis) - 05/22/23 Attending Physician: Jose Martinez MD Allergies, Adverse [...] H1N1, inactive(oldterm) 8 01/21/09 Given 1Result Comment: [facility]:[id number] 2Result Comment: [facility]:[id number] 3Result Comment: [01/19/2018] [id number] 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 5Admin Note: [employer]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 6Admin Note: [employer] [facility] 7Admin Note: [employer],[place] 8Admin Note: Novaritis Medications Albuterol (Eqv-ProAir HFA) 2 puffs, Inhalation, Every 6 hours, 0 Refills, Maintenance, 10/13/21 13:54:00 EDT, Partial fill upon patient request if the prescription is for a schedule II opioid drug. Start Date: 10/13/21 Status: Ordered amLODIPine 10 mg oral tablet 1 tablet, By Mouth, Daily, # 90 tablet, 1 Refills, Maintenance, 01/25/23 22:10:00 EST, [facility], 157.48, cm, 11/17/22 16:49:00 EDT, Height, 111, kg, 06/10/21 15:06:00 EDT, Dry Weight Start Date: 01/25/23 Status: Ordered ARIPiprazole 5 mg oral tablet 1, tablet, By Mouth, Daily, TO BE COMBINED WITH THE CITALOPRAM THERAPY., # 90 tablet, Refills 1, Tot. Refills 1, Maintenance, 04/01/23 21:26:00 EST, Route to Pharmacy Electronically, [facility]/pharmacy #[id number], 157.48, cm, 11/17/22 16:49:00 EDT, Height, 111,... Start Date: 04/01/23 Status: Ordered aspirin 81 mg oral delayed release tablet 81 mg, By Mouth, Daily, # 30 tablet, Refills 11, Tot. Refills 11, Maintenance, 06/12/21 9:27:00 EDT, Route to Pharmacy Electronically, [facility], Partial fill upon patient request if the prescription is for a schedule II opioid drug., 1... Start Date: 06/12/21 Stop Date: 06/07/22 Status: Ordered Ativan 0.5 mg oral tablet 1 tablet = 0.5 mg, By Mouth, Daily at bedtime, PRN as needed for anxiety, # 30 tablet, 5 Refills, Maintenance, 05/25/23 10:30:00 EST, Tablet, [facility]/pharmacy #[id number], Partial fill upon patient request if the prescription is for a schedule II opioid drug.,... Start Date: 05/25/23 Status: Ordered atorvastatin 80 mg oral tablet 1 tablet, By Mouth, Daily at bedtime, # 90 tablet, 1 Refills, Maintenance, 10/12/22 12:22:00 EDT, [facility], 157.48, cm, 08/28/22 9:39:00 EDT, Height, 111, [...] tablet, 1 Refills, Maintenance, 04/28/23 7:10:00 EST, [facility], 157.48, cm, 04/19/23 8:28:00 EST, Height, 111, [...] # 90 tablet, 1 Refills, [facility], 90, TAKE 1 TABLET BY MOUTH EVERY [...] Refills, Maintenance, 07/08/22 11:55:00 EDT, [facility], 30, INHALE 2 PUFFS TWICE A DAY, 157.48, cm, 05/18/22 9:48:00 EST, Height, 111, kg, 06/10/21 15:06:00 EDT, Dry Weight Start Date: 07/08/22 Status: Ordered Entresto 24 mg-26 mg oral tablet 1 tablet, By Mouth, 2 times a day, # 60 tablet, 11 Refills, Maintenance, 09/21/22 14:36:00 EDT, [facility], 30, TAKE 1 TABLET BY MOUTH TWICE A DAY, 157.48, cm, 08/28/22 9:39:00 EDT, Height, 111,kg, 06/10/21 15:06:00 EDT, Dry Weight Start Date: 09/21/22 Status: Ordered Entresto 24 mg-26 mg oral tablet 1 tablet, By Mouth, 2 times a day, # 60 tablet, 11 Refills, [facility], 30, TAKE 1 TABLET BY MOUTH TWICE A DAY, 157.48, cm, 08/12/21 10:44:00 EDT, Height, 111, kg, 06/10/21 15:06:00 EDT, Dry Weight Start Date: 09/18/21 Status: Ordered ferrous sulfate 325 mg oral enteric coated tablet 1, tablet, By Mouth, 2 times a day, # 180 tablet, Refills 1, Maintenance, 07/26/22 7:26:00 EDT, Route to Pharmacy Electronically, [facility], 157.48, cm, 05/18/22 9:48:00 EST, Height, 111, kg, 06/10/21 15:06:00 EDT, Dry Weight Start Date: 07/26/22 Status: Ordered furosemide 20 mg oral tablet 1, tablet, By Mouth, Daily, # 90 tablet, Refills 1, Maintenance, 12/28/22 9:01:00 EDT, Route to Pharmacy Electronically, [facility], 157.48, cm, 11/17/22 16:49:00 EDT, Height, 111, kg, 06/10/21 15:06:00 EDT, Dry Weight Start Date: 12/28/22 Status: Ordered furosemide 20 mg oral tablet 1, tablet, By Mouth, Daily, # 90 tablet, Refills 1, Maintenance, 07/02/22 8:00:00 EDT, Route to Pharmacy Electronically, [facility], 157.48, cm, 05/18/22 9:48:00 EST, Height, 111, kg, 06/10/21 15:06:00 EDT, Dry Weight Start Date: 07/02/22 Status: Ordered furosemide 20 mg oral tablet 1, tablet, By Mouth, Daily, # 90 tablet, Refills 1, Maintenance, 04/26/23 12:41:00 EST, Route to Pharmacy Electronically, [facility], 157.48, cm, 04/19/23 8:28:00 EST, Height, 111, kg, 06/10/21 15:06:00 EDT, Dry Weight Start Date: 04/26/23 Status: Ordered furosemide 20 mg oral tablet 1, tablet, By Mouth, Daily, # 30 tablet, Refills 5, Maintenance, 12/30/21 15:04:00 EDT, Route to Pharmacy Electronically, [facility] 88239, 157.48, cm, 11/04/21 11:33:00 EDT, Height, 111, kg, 06/10/2214:06:00 EDT, Dry Weight Start Date: 12/30/21 Status: Ordered Metoprolol Succinate ER 100 mg oral tablet, extended release 1.5 tablet = 150 mg, By Mouth, Daily, # 135 tablet, 3 Refills, Maintenance, 10/12/22 15:26:00 EDT, XL Tablet, [facility]/pharmacy #2339, Partial fill upon patient request [...] tablet, 0 Refills, Maintenance, 04/28/23 7:10:00 EST, [facility], 157.48, cm, 04/19/23 8:28:00 EST, Height, 111, kg, ... Start Date: 04/28/23 Status: Ordered spironolactone 25 mg oral tablet 25 mg, 1, tablet, By Mouth, Daily, # 90 tablet, Refills 3, Tot. Refills 3, Maintenance, 05/27/23 11:09:00 EST, Route to Pharmacy Electronically, [facility]/pharmacy #2339, 157.48, cm, 05/21/23 12:45:00 EST,Height, 111, kg, 06/10/21 15:06:00 EDT, Dry Weight Start Date: 05/27/23 Status: Ordered warfarin 5 mg oral tablet See Instructions, Take 1/2 to 1 tablet By Mouth Daily as directed by coumadin clinic, # 90 tablet, 2 Refills, Maintenance, 05/12/22 13:52:00 EST, Tablet, [facility]/pharmacy #2339, Partial fill upon patientrequest if the prescription is for a schedule II... Start Date: 05/12/22 Status: Ordered Wegovy (0.25 mg dose) subcutaneous solution = 0.25 mg, Subcutaneous Injection, Every week, for 4 week(s), in the abdomen, thigh, or upper arm, # 2 mL, 1 Refills, Acute 06/14/23 8:54:00 EDT, 04/19/23 8:54:00 EST, Solution, [facility], Partial fill upon patient request if the prescription... Start Date: 04/19/23 Stop Date: 06/14/23 Status: Ordered Problem List Condition Confirmation Course Effective Dates Status H ealth Status Informant Asthma Confirmed Active Atrial fibrillation Confirmed Active Back pain 1 Confirmed Active Cardiomyopathy Confirmed Active Major depression, chronic Confirmed Active CHF (congestive heart failure) (XSYN24-65% on echo 2019) Confirmed Active Coronary artery [...] Effective Dates Health Status Clinical Service Informant Encounter for Medicare annual wellness exam Discharge Diagnosis 05/22/23 Atrial fibrillation Discharge Diagnosis 05/22/23 CHF (congestive heart failure) (NJXH03-30% on echo 2019) Discharge Diagnosis 05/22/23 Cardiomyopathy Discharge Diagnosis 05/22/23 Severe obesity Discharge Diagnosis 05/22/23 Secondary hypercoagulable state Discharge Diagnosis 05/22/23 Vital Signs Most recent to oldest [Reference Range]: 1 Height 157.48 cm (05/21/23 12:45 PM) Weight 133.1 kg (05/21/23 12:45 PM) Oxygen Saturation [94-100 %] 96 % (05/21/23 12:45 PM) Pulse Rate [55-90 bpm] 67 bpm (05/21/23 12:45 PM) Body Mass Index [18.5-24.99 kg/m2] 53.67 kg/m2 *>HHI* (05/21/23 12:45 PM) Blood Pressure [90-138/55-84 mm Hg] 114/ 83mm Hg (05/21/23 12:45 PM) Weight Obtained Via Standing scale (05/21/23 12:45 PM) Social History Social History Type Response Smoking Status Former smoker, quit more than 30 days ago; Other: quit June 2021; entered on: 05/18/22 Sex Female Note * Reyna Martinez MA: PERFORM, SIGN, VERIFY Event Display: Patient Education/Instruction Authored Date: [id number] [facility] *SUJATHA Live Clinical Summary Name ELYSSA ALFREDO Age 67 Years 1955 PCP Jose Martinez MD PCP Visit Date 05/21/2023 12:34:00 Additional Instructions: Scheduled Appointments?? Future Appointments ?*[facility] ?[address]??[place],??[place],??[address] ?Phone:??--?Fax:??-- ?Appt. Date:??06/22/2023?8:30 AM ?Scheduled Provider:??Melissa MILL RECORDER , Farheen Elise ?*[facility] ?[address]??[place],??[place],??[address] ?Phone:??--?Fax:??-- ?Appt. Date:??06/25/2023?8:45 AM ?Scheduled Provider:??Roxanne HICKEY, Heena Krishnan ?*[facility] ?[address] ?[address] ?[place],??[place],??[address] ?Phone:??--?Fax:??-- ?Appt. Date:??08/17/2023?3:45 PM ?Scheduled Provider:??Opal BENDER, [place] Follow-Up Instructions ?? Diagnosis Hyperlipidemia, unspecified; Encounter for other screening for malignant neoplasm of breast; Essential (primary) hypertension; Encounter for screening for malignant neoplasm of colon Medications: Please continue your medications until treatment [...] Cordran Tape; Nembutal Medications Given This Visit Medication Dose Route pneumococcal 20-valent conjugate vaccine (pneumococcal 20-valent vacc) 0.5 mL Intramuscular Future Orders ?MM Digital Mammo Screening? Order Date:05/21/23?- Complete on or after?05/21/23 Vital Signs Height 157.48 cm Weight 133.1 kg BMI 53.67 kg/m2 Blood Pressure 114 mm Hg/83 mm Hg Temperature Pulse Rate 67 bpm Respiratory Rate 02 Sat Mode of Delivery 96 %/ You can now view a summary of your hospital visit from the comfort of your home through a free online portal called [employer]. [employer] is a website that allows you to securely view your medical information including discharge summary, medications and follow-up visits. ??You can alsosend a secure electronic message to your doctor???s office to request appointments, renew medications or just ask a question. You can enroll at [email or web address] or register during your next office [...] primary care provider, you may find a [facility] provider by calling [facility] [employer] [facility] at [phone]. [facility], in keeping with [facility] guidance, no longer requires face masks [...] Care Team Personnel Name: Radha Villela Position: [facility] BENNIE Supv Member Role: Primary Care Nurse Name: Nichole Coates RN Position: [facility] SN RN Member Role: Primary Care Nurse Name: Ksenia Herzog RN Position: [facility] RN Member Role: Primary Care Nurse Name: Leatha Walsh RN Position: [facility] SN RN Member Role: Primary Care Nurse Name: Milagro Sims RN Position: [facility] ANGEL Nurse Member Role: Primary Care Nurse Name: Jo Ann Stubbs PharmD Position: [facility] Associate Professional Member Role: [employer] Provider Address: Address: [address] [place] [address]- Name: Anne Gonzalez RN Position: [facility] RN Member Role: Primary Care Nurse Name: Mckayla Wilcox RN Position: [facility] SN RN Member Role: Primary Care Nurse Name: Simin Chen RN Position: [facility] RN Member Role: Primary Care Nurse Name: Jose Mratinez MD Position: [facility] Physician - Primary Care Member Role: PCP Address: Address: [address] [place] [address]- [place] Name: Aleks Merchant RN Position: [facility] RN Member Role: Primary Care Nurse Name: Genet Bowman RN Position: [facility] SN RN Member Role: Primary Care Nurse Name: Ilana Burns RN Position: [facility] RN Member Role: Primary Care Nurse Care Team Related Persons Name: TUTU ROWLAND Address: [address] [address] Name: JANET CONNOR Address: home [address] [place] [id number]
--- OUTSIDE RECORDS SUMMARY | 2023-08-02 08:34 | XMS_ITS | Continuity of Care Document ---
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 4Admin Note: [employer] 5Admin Note: [employer],[place] 6Admin Note: Novaritis Medications amLODIPine 5 mg oral tablet 5 mg, 1, tablet, By Mouth, Daily, # 90 tablet, Refills 1, Tot. Refills 1, Maintenance, 09/02/18 11:06:29 EDT, Route to Pharmacy Electronically, [id number], [id number] Start Date: 09/02/18 Stop Date: 03/01/19 Status: Ordered amoxicillin 500 mg oral capsule 4 capsule = 2,000 mg, By Mouth, call or contact centre manager to Procedure, 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 Refills 0, Maintenance, 08/04/17 9:05:52 EDT, Route to Pharmacy Electronically, [id number], [facility] 3 Start Date: 08/04/17 Status: Ordered Ativan 0.5 mg oral tablet 1 tablet = 0.5 mg, By Mouth, 3 times a day, PRN anxiety, # 90 tablet, 2 Refills, Maintenance, 03/20/19 16:41:00 EST, Tablet, [facility]/pharmacy #2339, 157, cm, 01/13/19 9:10:00 EDT, Height, 104, kg, 08/03/17 12:54:00 EDT, Dry Weight Start Date: 03/20/19 Status: Ordered atorvastatin 40 mg oral tablet 1 tablet = 40 mg, By Mouth, Daily, # 30 tablet, 5 Refills, Maintenance, 03/20/19 15:53:00 EST, Tablet, [facility]/pharmacy #2339, 157, cm, 01/13/19 9:10:00 EDT, Height, 104, kg, 08/03/17 12:54:00 EDT, Dry Weight Start Date: 03/20/19 Status: Ordered CeleXA 40 mg oral tablet 1, tablet, By Mouth, Daily, # 90 tablet, Refills 1, Tot. Refills 1, Maintenance, 03/20/19 16:10:00 EST, Route to Pharmacy Electronically, [facility]/pharmacy #2339, 157, cm, 01/13/19 9:10:00 EDT, [...] 15 mg, By Mouth, Every 8 hours, On substance agreement evaluated every 3 to 6 months, # 66 tablet, 0 Refills, Maintenance, 03/20/19 13:57:00 EST, [id number], parital fill upon patient request, 157, cm, 01/13/19 9:10:00 EDT, Height... Start Date: 03/20/19 Stop Date: 04/11/19 Status: Ordered morphine 30 mg/8 to 12 [...] EDT, Patch Start Date: 06/29/18 Status: Ordered Keraderm [facility] use with inhaler Keraderm [facility] use with inhaler, See Instructions, # 1 [...] 14:55:12 EDT, Aerosol, Route to Pharmacy Electronically, [id number], [facility]/pharmacy #[id number] Start Date: 10/28/18 Status: Ordered Ventolin HFA [...]
--- OUTSIDE RECORDS SUMMARY | 2023-08-02 08:34 | XMS_ITS | Continuity of Care Document ---
Author Organization [facility] Address [address] [place] [address]- Care Team Providers Care Work Ticket Distributor Name Role Phone Jose Martinez MD Primary Care Physician [phone] [place] [facility] [place]s): 09/11/21 - 10/11/21 [facility] [address] [place] [address]- [place] Allergies, Adverse Reactions, Alerts Substance Reaction Severity [...] H1N1, inactive(oldterm) 7 01/21/09 Given 1Result Comment: [facility]:[id number] 2Result Comment: [01/19/2018] [id number] 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 5Admin Note: [employer] [facility] 6Admin Note: [employer],[place] 7Admin Note: Novaritis Medications amLODIPine 10 mg oral tablet 1 tablet, By Mouth, Daily, # 90 tablet, 1 Refills, [facility] 46770, 157.48, cm, 08/12/21 10:44:00 EDT, Height, 111, kg, 06/10/21 15:06:00 EDT, Dry Weight Start Date: 10/03/21 Status: Ordered ARIPiprazole 5 mg oral tablet 1, tablet, By Mouth, Daily, for 90 days, TO BE COMBINED WITH THE CITALOPRAM THERAPY, # 90 tablet, Refills 3, Tot. Refills 3, Physician Stop 08/01/22 9:00:00 EDT, 08/06/21 9:00:00 EDT, Route to Pharmacy Electronically, [facility]/pharmacy #2339, 157.48, cm, 0... Start Date: 08/06/21 Stop Date: 08/01/22 Status: Ordered aspirin 81 mg oral delayed release tablet 81 mg, By Mouth, Daily, # 30 tablet, Refills 11, Tot. Refills 11, Maintenance, 06/12/21 9:27:00 EDT, Route to Pharmacy Electronically, [facility] 3, Partial fill upon patient request if the prescription is for a schedule II opioid drug., 1... Start Date: 06/12/21 Stop Date: 06/07/22 Status: Ordered Ativan 0.5 mg oral tablet 1 tablet = 0.5 mg, By Mouth, Daily at bedtime, PRN as needed for anxiety, # 30 tablet, 1 Refills, Maintenance, 08/06/21 9:02:00 EDT, Tablet, [facility]/pharmacy #2339, Partial fill upon patient request if the prescription is for a schedule II opioid drug., 1... Start Date: 08/06/21 Status: Ordered citalopram 40 mg oral tablet 1 tablet, By Mouth, Daily, for 90 days, # 90 tablet, 3 Refills, Physician Stop 08/01/22 9:01:00 EDT, 08/06/21 9:01:00 EDT, [facility]/pharmacy #2339, 157.48, cm, 08/05/21 14:31:00 [...] 1 each, 11 Refills, 06/02/21 14:01:00 EDT, [facility]/pharmacy #2339, 2 puffs Inhalation 2 times a day, 160, cm, 06/02/21 13:26:00 EDT, Height, 103, kg, 04/10/20 11:20:00 EST, Dry Weight Start Date: 06/02/21 Status: Ordered Entresto 24 mg-26 mg oral tablet 1 tablet, By Mouth, 2 times a day, # 60 tablet, 11 Refills, [facility] 9[facility]78, 30, TAKE 1 TABLET BY MOUTH TWICE [...] 08/06/21 9:01:00 EDT, Route to Pharmacy Electronically, [facility]/pharmacy #2339, 157.48, cm, 08/05/21 14:31:00 [...] of lasix that day and call your valet's office for a... Start Date: 06/12/21 Status: Ordered Lipitor 80 mg oral tablet 1 tablet = 80 mg, By Mouth, Daily at bedtime, # 30 tablet, 11 Refills, Maintenance, 06/12/21 9:27:00 EDT, Tablet, [facility] 3, Partial fill upon patient request if the prescription is for a schedule II opioid drug., 157.48, cm, 06/10/21 1... Start Date: 06/12/21 Status: Ordered metoprolol 100 mg oral tablet, extended release 100 mg, 1, tablet, By Mouth, Daily, # 90 tablet, Refills 3, Tot. Refills 3, Maintenance, 09/11/21 12:08:00 EDT, Route to Pharmacy Electronically, [facility]/pharmacy #2339, 157.48, cm, 08/12/21 10:44:00 [...] tablet, 0 Refills, Maintenance, 08/19/21 14:03:00 EDT, [facility]/pharmacy #2339, parital fill upon patient [...] 5 Refills, Maintenance, 06/09/21 15:31:00 EDT, Tablet, [facility]/pharmacy #2339, Partial fill upon patient [...] each, 1 Refills, Maintenance, 08/05/21 15:00:00 EDT, [facility]/pharmacy #2339, Partial fill upon patient request if the prescription is for a schedul... Start Date: 08/05/21 Status: Ordered torsemide 5 mg oral tablet 2 tablet, By Mouth, Daily, # 180 tablet, 1 Refills, [facility] 00735, 157.48, cm, 08/12/21 10:44:00 EDT, Height, 111, [...] chronic(Confirmed) Active CHF (congestive heart failur e) (AWQH15-93% on echo 2019)(Confirmed) Active Continuous opioid dependence(Confirmed) [...]
--- OUTSIDE RECORDS SUMMARY | 2023-08-02 08:34 | XMS_ITS | Continuity of Care Document ---
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 5Admin Note: [employer]ated [facility] 6Admin Note: [employer]/Rixensart,[place] 7Admin Note: Novaritis Medications Albuterol (Eqv-ProAir HFA) 2 puffs, Inhalation, Every 6 hours, 0 Refills, Maintenance, 10/13/21 13:54:00 EDT, Partial fill upon patient request if the prescription is for a schedule II opioid drug. Start Date: 10/13/21 Status: Ordered amLODIPine 10 mg oral tablet 1 tablet, By Mouth, Daily, # 90 tablet, 3 Refills, Maintenance, 02/23/22 8:50:00 EST, [facility] STORE 6[facility]44, 157.48, cm, 01/20/22 14:40:00 EDT, Height, 111, kg, 06/10/21 15:06:00 EDT, Dry Weight Start Date: 02/23/22 Status: Ordered ARIPiprazole 5 mg oral tablet 1, tablet, By Mouth, Daily, for 90 days, TO BE COMBINED WITH THE CITALOPRAM THERAPY, # 90 tablet, Refills 3, Tot. Refills 3, Physician Stop 08/01/22 9:00:00 EDT, 08/06/21 9:00:00 EDT, Route to Pharmacy Electronically, [facility]/pharmacy #2339, 157.48, cm, 0... Start Date: 08/06/21 Stop Date: 08/01/22 Status: Ordered aspirin 81 mg oral delayed release tablet 81 mg, By Mouth, Daily, # 30 tablet, Refills 11, Tot. Refills 11, Maintenance, 06/12/21 9:27:00 EDT, Route to Pharmacy Electronically, [facility], Partial fill upon patient request if the prescription is for a schedule II opioid drug., 1... Start Date: 06/12/21 Stop Date: 06/07/22 Status: Ordered Ativan 0.5 mg oral tablet 1 tablet = 0.5 mg, By Mouth, Daily at bedtime, PRN as needed for anxiety, # 30 tablet, 3 Refills, Maintenance, 01/15/22 13:14:00 EDT, Tablet, [facility]/pharmacy #2339, Partial fill upon patient request if the prescription is for a schedule II opioid drug.,... Start Date: 01/15/22 Status: Ordered citalopram 40 mg oral tablet 1 tablet, By Mouth, Daily, for 90 days, # 90 tablet, 3 Refills, Physician Stop 08/01/22 9:01:00 EDT, 08/06/21 9:01:00 EDT, [facility]/pharmacy #2339, 157.48, cm, 08/05/21 14:31:00 EDT, [...] EVERY DAY, # 90 tablet, 1 Refills, [facility] 61528, 90, TAKE 1 TABLET BY MOUTH EVERY [...] each, 11 Refills, 06/02/21 14:01:00 EDT, [facility]/pharmacy #2339, 2 puffs Inhalation 2 times a day, 160, cm, 06/02/21 13:26:00 EDT, Height, 103, kg, 04/10/20 11:20:00 EST, Dry Weight Start Date: 06/02/21 Status: Ordered Entresto 24 mg-26 mg oral tablet 1 tablet, By Mouth, 2 times a day, # 60 tablet, 11 Refills, [facility] 55097, 30, TAKE 1 TABLET BY MOUTH TWICE [...] 9:01:00 EDT, Route to Pharmacy Electronically, [facility]/pharmacy #2339, 157.48, cm, 08/05/21 14:31:00 EDT, Height, 111,... Start Date: 08/06/21 Stop Date: 08/01/22 Status: Ordered furosemide 20 mg oral tablet 1, tablet, By Mouth, Daily, # 30 tablet, Refills 5, Maintenance, 12/30/21 15:04:00 EDT, Route to Pharmacy Electronically, [facility]ORE 06813, 157.48, cm, 11/04/21 11:33:00 EDT, Height, 111, kg, 06/10/2214:06:00 EDT, Dry Weight Start Date: 12/30/21 Status: Ordered Lipitor 80 mg oral tablet 1 tablet = 80 mg, By Mouth, Daily at bedtime, # 30 tablet, 11 Refills, Maintenance, 06/12/21 9:27:00 EDT, Tablet, [facility], Partial fill upon patient request if the prescription is for a schedule II opioid drug., 157.48, cm, 06/10/21 1... Start Date: 06/12/21 Status: Ordered metoprolol 100 mg oral tablet, extended release 150 mg, 1.5, tablet, By Mouth, Daily, # 45 tablet, Refills 6, Tot. Refills 6, Maintenance, 01/20/2214:50:00 EDT, Route to Pharmacy Electronically, [facility]/pharmacy #2339, Partial fill upon patient request [...] tablet, 0 Refills, Maintenance, 08/19/21 14:03:00 EDT, [facility]/pharmacy #2339, parital fill upon patient request, 157.48, cm, 07/21... Start Date: 08/19/21 Stop Date: 09/16/21 Status: Ordered morphine 15 mg/8 to 12 hr oral tablet, extended release 1 tablet = 15 mg, By Mouth, Every 8 hours, PRN Pain , Moderate, On substance agreement evaluated every 3 to 6 months, # 84 tablet, 0 Refills, Maintenance, 11/25/21 15:15:00 EDT, [facility]/pharmacy #2339, parital fill upon patient request, [...] tablet, 5 Refills, Maintenance, 02/23/22 8:50:00 EST, [facility], 157.48, cm, 01/20/22 14:40:00 EDT, Height, 111, kg, ... Start Date: 02/23/22 Status: Ordered warfarin 5 mg oral tablet 0.5 tablet = 2.5 mg, By Mouth, Daily, Goal INR 2-3 Please follow up with your coumadin clinic, # 15tablet, 0 Refills, Maintenance, 06/12/21 9:27:00 EDT, Tablet, [facility], Partial fill upon patient request if the prescription is for a... Start Date: 06/12/21 Status: Ordered Problem List Condition Confirmation Course Effective Dates Status H ealth Status Informant Asthma Confirmed Active Atrial fibrillation Confirmed Active Back pain 1 Confirmed Active Major depression, chronic Confirmed Active CHF (congestive heart failure) ([id number]% on echo 2019) Confirmed Active Continuous opioid [...] Care Team Personnel Name: Radha Villela Position: [facility] RN Supv Member Role: Primary Care Nurse Name: Nichole Coates RN Position: [facility] RN Member Role: Primary Care Nurse Name: Ksenia Herzog RN Position: [facility] RN Member Role: Primary Care Nurse Name: Leatha Walsh RN Position: [facility] RN Member Role: Primary Care Nurse Name: Milagro Sims RN Position: [facility] RN Member Role: Primary Care Nurse Name: Jo Ann Stubbs PharmD Position: [facility] Associate Professional Member Role: Lifetime Consulting Provider Address: Address: [address] [place], [place] [address] [address]- [place] Name: Anne Gonzalez RN Position: [facility] RN Member Role: Primary Care Nurse Name: Mckayla Wilcox RN Position: [facility] SN RN Member Role: Primary Care Nurse Name: Simin Chen RN Position: [facility] RN Member Role: Primary Care Nurse Name: Jose Martinez MD Position: [facility] Primary Care Physician Member Role: PCP Address: Address: [address] [place] [id number]- [place] Name: Aleks Merchant RN Position: [facility] RN Member Role: Primary Care Nurse Name: Genet Bowman RN Position: [facility] SN RN Member Role: Primary Care Nurse Name: Ilana Burns RN Position: [facility] RN Member Role: Primary Care Nurse Care Team Related Persons Name: TUTU ROWLAND Address: [address] [place] [address] Name: JANET CONNOR Address: home [address] [place] [address]
--- OUTSIDE RECORDS SUMMARY | 2023-08-02 08:34 | XMS_ITS | Continuity of Care Document ---
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 4Admin Note: [employer] 5Admin Note: [employer]/Rixensart,[place] 6Admin Note: Novaritis Medications Abilify 5 mg oral tablet 5 mg, 1, tablet, By Mouth, Daily, to be combined with the citalopram therapy, # 90 tablet, Refills 0, Tot. Refills 0, Maintenance, 07/20/20 19:50:00 EDT, [facility], cm, 05/15/20 10:27:00 EST, Height, 1... Start Date: 07/20/20 Status: Ordered Ativan 0.5 mg oral tablet 1 tablet = 0.5 mg, By Mouth, 3 times a day, PRN anxiety, # 90 tablet, 2 Refills, Maintenance, 10/14/20 13:39:00 EDT, Tablet, [facility], cm, 05/15/20 10:27:00 EST, Height, 103, kg, 04/10/20 11:20:00 EST, Dry Weight Start Date: 10/14/20 Status: Ordered atorvastatin 40 mg oral tablet 1 tablet = 40 mg, By Mouth, Daily, # 90 tablet, 1 Refills, Maintenance, 11/16/19 10:37:00 EDT, [facility], cm, 10/23/19 15:34:00 EDT, Height, Dry Weight Start Date: 11/16/19 Status: Ordered citalopram 40 mg oral tablet 1 tablet, By Mouth, Daily, # 90 tablet, 1 Refills, Maintenance, 10/28/20 14:21:00 EDT, [facility], cm, 05/15/20 10:27:00 EST, Height, 103, [...] mask, tubing, filters, headgear, water chamber dx PRICNESS, 10/17/18 11:44:10 EDT, Compound Start Date: 10/17/18 Status: Ordered Dilaudid 2 mg oral tablet 1 tablet = 2 mg, By Mouth, Daily, PRN Pain , Mild, On substance agreement evaluated every 3 to 6 months, # 28 tablet, 0 Refills, Maintenance, 10/29/20 12:51:00 EDT, Tablet, [facility]/pharmacy #2339, parital fill upon patient request, 162.5, cm, 05/15/20 1... Start Date: 10/29/20 Status: Ordered Dulera 100 mcg-5 mcg/inh inhalation aerosol 2 puffs, Inhalation, 2 times a day, # 13 Unknown, 11 Refills, Maintenance, 07/22/20 7:52:00 EDT, [facility], 30, INHALE 2 PUFFS TWICE A DAY, 162.5, cm, 05/15/20 10:27:00 EST, Height, 103, kg, 04/10/20 11:20:00 EST, Dry Weight Start Date: 07/22/20 Status: Ordered ferrous sulfate 325 mg oral enteric coated tablet 1, tablet, By Mouth, 2 times a day, # 180 tablet, Refills 1, Tot. Refills 0, Maintenance, 10/17/20 7:27:00 EDT, Route to Pharmacy Electronically, [facility] 22108, 162.5, cm, 05/15/20 10:27:00 EST, Height, 103, kg, 04/10/20 11:20:00 EST, Dry Weight Start Date: 10/17/20 Status: Ordered furosemide 40 mg oral tablet 1, tablet, By Mouth, Daily, # 90 tablet, Refills 1, Tot. Refills 0, Maintenance, 09/09/20 14:39:00 EDT, Route to Pharmacy Electronically, [facility] 42971, 162.5, cm, 05/15/20 10:27:00 EST, Height, 103, kg, 04/10/20 11:20:00 EST, Dry Weight Start Date: 09/09/20 Status: Ordered lisinopril 10 mg oral tablet 1, tablet, By Mouth, Daily, # 90 tablet, Refills 3, Route to Pharmacy Electronically, [facility] 18154, 162.5, cm, 05/15/20 10:27:00 EST, Height, 103, kg, 04/10/20 11:20:00 EST, Dry Weight Start Date: 11/13/20 Status: Ordered Metoprolol Succinate ER 25 mg oral tablet, extended release 1 tablet, By Mouth, Daily, # 90 tablet, 1 Refills, Maintenance, 07/22/20 7:32:00 EDT, [facility] STORE 77471, 162.5, cm, 05/15/20 10:27:00 EST, Height, 103, kg, 04/10/20 11:20:00 EST, Dry Weight Start Date: 07/22/20 Status: Ordered morphine 15 mg/8 to 12 hr oral tablet, extended release 1 tablet = 15 mg, By Mouth, Every 8 hours, PRN Pain , Moderate, On substance agreement evaluated every 3 to 6 months, # 90 tablet, 0 Refills, Maintenance, 10/29/20 12:51:00 EDT, [facility]/pharmacy #2339, parital fill upon patient request, 162.5, cm, 05/15... Start Date: 10/29/20 Stop Date: 11/28/20 Status: Ordered morphine 30 mg/8 to 12 hr oral tablet, extended release 1 tablet = 30 mg, By Mouth, 3 times a day, OPIATE AGREEMENT evaluated every 3 to 6 months, # 84 tablet, 0 Refills, Maintenance, 10/29/20 12:51:00 EDT, [facility]/pharmacy #2339, may fill for less, 162.5, cm, 05/15/20 10:27:00 EST, Height, 103, kg, 04/10/20... Start Date: 10/29/20 Stop Date: 11/26/20 Status: Ordered Multivitamin Daily, 0 Refills, Maintenance, 05/25/16 13:36:30 Start Date: 05/25/16 Status: Ordered Nicoderm C-Q 21 mg/24 hr transdermal film, extended release 1 patch, Topically, Daily, # 30 patch, 3 Refills, Maintenance, 08/25/19 16:23:00 EDT, Patch, [facility]/pharmacy #2339, 157, cm, 08/25/19 15:55:00 EDT, Height Start Date: 08/25/19 Status: Ordered [employer] [facility] use with inhaler [employer] [facility] use with inhaler, See Instructions, # [...] tablet, 3 Refills, Maintenance, 10/17/20 12:35:00 EDT, [facility] 93156, 162.5, cm, 05/15/20 10:27:00 EST, Height, 103, [...] tablet, 1 Refills, Maintenance, 09/02/20 8:48:00 EDT, [facility] 13721, 162.5, cm, 05/15/20 10:27:00 EST, Height, 103, [...]
--- OUTSIDE RECORDS SUMMARY | 2023-08-02 08:34 | XMS_ITS | Continuity of Care Document ---
Author Organization [facility] Address [address] [place] [address]- Care Team Providers Care Fig Caprifier Name Role Phone Jose Martinez MD Primary Care Physician [phone] [facility] Date(s): 11/02/22 - 12/02/22 [facility] [address] [place] [address] Attending Physician: Annetta Steinberg Admitting Physician: AdmtrAnnetta Referring Physician: Admtr, ArBran Allergies, Adverse Reactions, Alerts Substance Reaction Severity [...] 05/28/20 R ecorded Influenza Virus Vaccine (oldterm) 10/26/20 Recorde d tetanus/diphtheria/pertussis, acel(Tdap) 10/20/19 Given FluLaval (oldterm) 5 03/08/12 Given Pneumococcal Poly (PPV23) (oldterm) 06/02/11 Given Tet/Diphth/Acel, Pertussis (oldterm) 6 02/25/09 Gi [place] influ virus vac, H1N1, inactive(oldterm) 7 01/21/09 Given 1Result Comment: [facility]:[id number] 2Result Comment: [01/19/2018] [id number] 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 4Admin Note: [employer]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 5Admin Note: [employer] [facility] 6Admin Note: [employer]/Madayxalessandra,[place] 7Admin Note: Novaritis Medications Albuterol (Eqv-ProAir HFA) 2 puffs, Inhalation, Every 6 hours, 0 Refills, Maintenance, 10/13/21 13:54:00 EDT, Partial fill upon patient request if the prescription is for a schedule II opioid drug. Start Date: 10/13/21 Status: Ordered amLODIPine 10 mg oral tablet 1 tablet, By Mouth, Daily, # 90 tablet, 3 Refills, Maintenance, 02/23/22 8:50:00 EST, [facility]19, 157.48, cm, 01/20/22 14:40:00 EDT, Height, 111, kg, 06/10/21 15:06:00 EDT, Dry Weight Start Date: 02/23/22 Status: Ordered ARIPiprazole 5 mg oral tablet 1, tablet, By Mouth, Daily, X90 DAYS,INSTR:TO BE COMBINED WITH THE CITALOPRAM THERAPY, # 90 tablet,Refills 1, Maintenance, 07/26/22 7:25:00 EDT, Route to Pharmacy Electronically, [facility] 73234, 157.48, cm, 05/18/22 9:48:00 EST, Height, 111, kg, 03/... Start Date: 07/26/22 Status: Ordered aspirin 81 mg oral delayed release tablet 81 mg, By Mouth, Daily, # 30 tablet, Refills 11, Tot. Refills 11, Maintenance, 06/12/21 9:27:00 EDT, Route to Pharmacy Electronically, [facility], Partial fill upon patient request if the prescription is for a schedule II opioid drug., 1... Start Date: 06/12/21 Stop Date: 06/07/22 Status: Ordered Ativan 0.5 mg oral tablet 1 tablet = 0.5 mg, By Mouth, Daily at bedtime, PRN as needed for anxiety, # 30 tablet, 5 Refills, Maintenance, 10/27/22 13:20:00 EDT, Tablet, [facility]/pharmacy #2339, Partial fill upon patient request if the prescription is for a schedule II opioid drug.,... Start Date: 10/27/22 Status: Ordered atorvastatin 80 mg oral tablet 1 tablet, By Mouth, Daily at bedtime, # 90 tablet, 1 Refills, Maintenance, 10/12/22 12:22:00 EDT, [facility], 157.48, cm, 08/28/22 9:39:00 EDT, Height, 111, kg, 06/10/21 15:06:00 EDT, Dry Weight Start Date: 10/12/22 Status: Ordered citalopram 40 mg oral tablet 1 tablet, By Mouth, Daily, # 90 tablet, 1 Refills, Maintenance, 11/25/22 22:48:00 EDT, [facility], 157.48, cm, 11/17/22 16:49:00 EDT, Height, 111, kg, 06/10/21 15:06:00 EDT, Dry Weight Start Date: 11/25/22 Status: Ordered CPAP Machine See Instructions, # 1 each, Maintenance, AutoCPAP 6-12 cm H20, use Daily when sleeping 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, 12/22/21 11:06:00 EDT, Supply Start Date: 12/22/21 Status: Ordered Daily Erica oral tablet See Instructions, TAKE 1 TABLET BY MOUTH EVERY DAY, # 90 tablet, 1 Refills, [facility], 90, TAKE 1 TABLET BY MOUTH EVERY [...] Refills, Maintenance, 07/08/22 11:55:00 EDT, [facility], 30, INHALE 2 PUFFS TWICE A DAY, 157.48, cm, 05/18/22 9:48:00 EST, Height, 111, kg, 06/10/21 15:06:00 EDT, Dry Weight Start Date: 07/08/22 Status: Ordered Entresto 24 mg-26 mg oral tablet 1 tablet, By Mouth, 2 times a day, # 60 tablet, 11 Refills, Maintenance, 09/21/22 14:36:00 EDT, [facility], 30, TAKE 1 TABLET BY MOUTH TWICE A DAY, 157.48, cm, 08/28/22 9:39:00 EDT, Height, 111,kg, 06/10/21 15:06:00 EDT, Dry Weight Start Date: 09/21/22 Status: Ordered Entresto 24 mg-26 mg oral tablet 1 tablet, By Mouth, 2 times a day, # 60 tablet, 11 Refills, [facility], 30, TAKE 1 TABLET BY MOUTH TWICE A DAY, 157.48, cm, 08/12/21 10:44:00 EDT, Height, 111, kg, 06/10/21 15:06:00 EDT, Dry Weight Start Date: 09/18/21 Status: Ordered ferrous sulfate 325 mg oral enteric coated tablet 1, tablet, By Mouth, 2 times a day, # 180 tablet, Refills 1, Maintenance, 07/26/22 7:26:00 EDT, Route to Pharmacy Electronically, [facility], 157.48, cm, 05/18/22 9:48:00 EST, Height, 111, kg, 06/10/21 15:06:00 EDT, Dry Weight Start Date: 07/26/22 Status: Ordered furosemide 20 mg oral tablet 1, tablet, By Mouth, Daily, # 90 tablet, Refills 1, Maintenance, 07/02/22 8:00:00 EDT, Route to Pharmacy Electronically, [facility] 53645, 157.48, cm, 05/18/22 9:48:00 EST, Height, 111, kg, 06/10/21 15:06:00 EDT, Dry Weight Start Date: 07/02/22 Status: Ordered furosemide 20 mg oral tablet 1, tablet, By Mouth, Daily, # 30 tablet, Refills 5, Maintenance, 12/30/21 15:04:00 EDT, Route to Pharmacy Electronically, [facility] 14327, 157.48, cm, 11/04/21 11:33:00 EDT, Height, 111, kg, 06/10/2214:06:00 EDT, Dry Weight Start Date: 12/30/21 Status: Ordered Metoprolol Succinate ER 100 mg oral tablet, extended release 1.5 tablet = 150 mg, By Mouth, Daily, # 135 tablet, 3 Refills, Maintenance, 10/12/22 15:26:00 EDT, XL Tablet, [facility]/pharmacy #2339, Partial fill upon [...] THEN 3 EVERY NIG, # 270 tablet, 0 Refills, Maintenance, 11/25/22 22:49:00 EDT, [facility] 77780, 157.48, cm, 11/17/22 16:49:00 EDT, Height, 111, kg, 0... Start Date: 11/25/22 Status: Ordered spironolactone 25 mg oral tablet 0.5, tablet, By Mouth, Daily, # 45 tablet, Refills 1, Maintenance, 05/21/22 10:15:00 EST, Route to Pharmacy Electronically, [facility] 89531, 157.48, cm, 05/18/22 9:48:00 EST, Height, 111, kg, 06/10/21 15:06:00 EDT, Dry Weight Start Date: 05/21/22 Status: Ordered warfarin 5 mg oral tablet See Instructions, Take 1/2 to 1 tablet By Mouth Daily as directed by coumadin clinic, # 90 tablet, 2 Refills, Maintenance, 05/12/22 13:52:00 EST, Tablet, [facility], Partial fill upon patientrequest if the prescription is for a schedule II... Start Date: 05/12/22 Status: Ordered Problem List Condition Confirmation Course Effective Dates Status H ealth Status Informant Asthma Confirmed Active Atrial fibrillation Confirmed Active Back pain 1 Confirmed Active Cardiomyopathy Confirmed Active Major depression, chronic Confirmed Active CHF (congestive heart failure) (IYNU35-19% on echo 2019) Confirmed Active Coronary artery [...] Care Team Personnel Name: Radha Villela Position: [facility] RN Supv Member Role: Primary Care Nurse Name: Nichole Coates RN Position: [facility] RN Member Role: Primary Care Nurse Name: Ksenia Herzog RN Position: [facility] RN Member Role: Primary Care Nurse Name: Leatha Walsh RN Position: [facility] RN Member Role: Primary Care Nurse Name: Milagro Sims RN Position: [facility] RN Member Role: Primary Care Nurse Name: Jo Ann Stubbs PharmD Position: [facility] Associate Professional Member Role: [employer]etime Consulting Provider Address: Address: [address] [place] [address] [facility] [place], [place] [address] Name: Anne Gonzalez RN Position: [facility] RN Member Role: Primary Care Nurse Name: Mckayla Wilcox RN Position: [facility] RN Member Role: Primary Care Nurse Name: Simin Chen RN Position: [facility] RN Member Role: Primary Care Nurse Name: Jose Martinez MD Position: S Physician - Primary Care Member Role: PCP Address: Address: [address] [place] [id number] Name: Aleks Merchant RN Position: [facility] RN Member Role: Primary Care Nurse Name: Genet Bowman RN Position: [facility] SN RN Member Role: Primary Care Nurse Name: Ilana Burns RN Position: [facility] RN Member Role: Primary Care Nurse Care Team Related Persons Name: TUTU ROWLAND Address: [address] [place] [address] Name: JANET CONNOR Address: [address] [place] [address]
--- OUTSIDE RECORDS SUMMARY | 2023-08-02 08:34 | XMS_ITS | Continuity of Care Document ---
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 Refills 0, Maintenance, 07/20/20 19:50:00 EDT, Route to Pharmacy Electronically, [facility]/pharmacy #2339, 162.5, cm, 05/15/20 10:27:00 EST, Height, 1... Start Date: 07/20/20 Status: Ordered Ativan 0.5 mg oral tablet 1 tablet = 0.5 mg, By Mouth, 3 times a day, PRN anxiety, # 90 tablet, 2 Refills, Maintenance, 10/14/20 13:39:00 EDT, Tablet, [facility]/pharmacy #2339, 162.5, cm, 05/15/20 10:27:00 EST, Height, 103, kg, 04/10/20 11:20:00 EST, Dry Weight Start Date: 10/14/20 Status: Ordered atorvastatin 40 mg oral tablet 1 tablet = 40 mg, By Mouth, Daily, # 90 tablet, 1 Refills, Maintenance, 11/16/19 10:37:00 EDT, Tablet, [facility]/pharmacy #2339, 156.6, cm, 10/23/19 15:34:00 EDT, Height, Dry Weight Start Date: 11/16/19 Status: Ordered citalopram 40 mg oral tablet 1 tablet, By Mouth, Daily, # 90 tablet, 1 Refills, Maintenance, 04/04/20 11:03:00 EST, [facility]/pharmacy#2339, 162.5, cm, 04/03/20 11:38:00 EST, Height, [...] months, # 28 tablet, 0 Refills, Maintenance, 09/25/20 16:32:00 EDT, Tablet, [facility]/pharmacy #2339, parital fill upon patient request, 162.5, cm, 05/15/20 1... Start Date: 09/25/20 Status: Ordered Dulera 100 mcg-5 mcg/inh inhalation aerosol 2 puffs, Inhalation, 2 times a day, # 13 Unknown, 11 Refills, Maintenance, 07/22/20 7:52:00 EDT, [facility], 30, INHALE 2 PUFFS TWICE A DAY, 162.5, cm, 05/15/20 10:27:00 EST, Height, 103, kg, 04/10/20 11:20:00 EST, Dry Weight Start Date: 07/22/20 Status: Ordered ferrous sulfate 325 mg oral enteric coated tablet 1, tablet, By Mouth, 2 times a day, # 180 tablet, Refills 1, Tot. Refills 0, Maintenance, 10/17/20 7:27:00 EDT, Route to Pharmacy Electronically, [facility], 162.5, cm, 05/15/20 10:27:00 EST, Height, 103, kg, 04/10/20 11:20:00 EST, Dry Weight Start Date: 10/17/20 Status: Ordered furosemide 40 mg oral tablet 1, tablet, By Mouth, Daily, # 90 tablet, Refills 1, Tot. Refills 0, Maintenance, 09/09/20 14:39:00 EDT, Route to Pharmacy Electronically, [facility], 162.5, cm, 05/15/20 10:27:00 EST, Height, 103, kg, 04/10/20 11:20:00 EST, Dry Weight Start Date: 09/09/20 Status: Ordered lisinopril 10 mg oral tablet 10 mg, 1, tablet, By Mouth, Daily, # 90 tablet, Refills 1, Tot. Refills 1, Maintenance, 05/20/20 8:39:00 EST, Route to Pharmacy Electronically, [facility]/pharmacy #2339, 162.5, cm, 05/15/20 10:27:00 EST, Height, 103, kg, 04/10/20 11:20:00 EST, Dry Weight Start Date: 05/20/20 Stop Date: 11/16/20 Status: Ordered Metoprolol Succinate ER 25 mg oral tablet, extended release 1 tablet, By Mouth, Daily, # 90 tablet, 1 Refills, Maintenance, 07/22/20 7:32:00 EDT, [facility]0912, 162.5, cm, 05/15/20 10:27:00 EST, Height, 103, kg, 04/10/20 11:20:00 EST, Dry Weight Start Date: 07/22/20 Status: Ordered morphine 15 mg/8 to 12 hr oral tablet, extended release 1 tablet = 15 mg, By Mouth, Every 8 hours, PRN Pain , Moderate, On substance agreement evaluated every 3 to 6 months, # 90 tablet, 0 Refills, Maintenance, 09/25/20 16:32:00 EDT, [facility]/pharmacy #2339, parital fill upon patient request, 162.5, cm, 05/15... Start Date: 09/25/20 Stop Date: 10/25/20 Status: Ordered morphine 30 mg/8 to 12 hr oral tablet, extended release 1 tablet = 30 mg, By Mouth, 3 times a day, OPIATE AGREEMENT evaluated every 3 to 6 months, # 84 tablet, 0 Refills, Maintenance, 09/25/20 16:32:00 EDT, [facility]/pharmacy #2339, may fill for less, 162.5, cm, 05/15/20 10:27:00 EST, Height, 103, kg, 04/10/20... Start Date: 09/25/20 Stop Date: 10/23/20 Status: Ordered Multivitamin Daily, 0 Refills, Maintenance, 05/25/16 13:36:30 Start Date: 05/25/16 Status: Ordered Nicoderm C-Q 21 mg/24 hr transdermal film, extended release 1 patch, Topically, Daily, # 30 patch, 3 Refills, Maintenance, 08/25/19 16:23:00 EDT, Patch, [facility]/pharmacy #2339, 157, cm, 08/25/19 15:55:00 EDT, Height Start Date: 08/25/19 Status: Ordered [facility] use with inhaler [facility] use with inhaler, See Instructions, # 1 [...] tablet, 3 Refills, Maintenance, 10/17/20 12:35:00 EDT, [facility], 162.5, cm, 05/15/20 10:27:00 EST, Height, 103, [...] tablet, 1 Refills, Maintenance, 09/02/20 8:48:00 EDT, [facility], 162.5, cm, 05/15/20 10:27:00 EST, Height, 103, [...]
--- OUTSIDE RECORDS SUMMARY | 2023-08-02 08:34 | XMS_ITS | Continuity of Care Document ---
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 4Admin Note: [employer] 5Admin Note: [employer],[place] 6Admin Note: Novaritis Medications Abilify 5 mg oral tablet 5 mg, 1, tablet, By Mouth, Daily, to be combined with the citalopram therapy, # 30 tablet, Refills 11, Tot. Refills 11, Maintenance, 07/31/19 14:19:00 EDT, [facility], cm, 07/31/19 13:53:00 EDT, Height, 1... Start Date: 07/31/19 Status: Ordered Ativan 0.5 mg oral tablet 1 tablet = 0.5 mg, By Mouth, 3 times a day, PRN anxiety, # 90 tablet, 2 Refills, Maintenance, 02/26/20 20:28:00 EST, Tablet[facility], cm, 01/26/20 9:40:00 EST, Height, 104, kg, 01/19/20 3:57:00 EDT, Dry Weight Start Date: 02/26/20 Status: Ordered atorvastatin 40 mg oral tablet 1 tablet = 40 mg, By Mouth, Daily, # 90 tablet, 1 Refills, Maintenance, 11/16/19 10:37:00 EDT, Tablet[facility], 156.6, cm, 10/23/19 15:34:00 EDT, Height, Dry Weight Start Date: 11/16/19 Status: Ordered citalopram 40 mg oral tablet 1 tablet, By Mouth, Daily, # 90 tablet, 1 Refills, Maintenance, 10/03/19 13:25:00 EDT, [facility] [address]88, 157, cm, 08/25/19 15:55:00 EDT, Height Start [...] 0 Refills, Maintenance, 02/07/20 16:16:00 EST, Tablet, [facility]/pharmacy #2339, parital fill upon patient request, 160, cm, 01/26/20 9:4... Start Date: 02/07/20 Status: Ordered Dulera 100 mcg-5 mcg/inh inhalation aerosol 2 puffs, Inhalation, 2 times a day, # 1 each, 11 Refills, Maintenance, 07/31/19 14:15:00 EDT, Aerosol, [facility]/pharmacy #2339, 2 puffs Inhalation 2 times a day, 157, cm, 07/31/19 13:53:00 EDT, Height, 104, kg, 08/03/17 12:54:00 EDT, Dry Weight Start Date: 07/31/19 Status: Ordered ferrous sulfate 325 mg oral enteric coated tablet 325 mg, By Mouth, 2 times a day, # 60 tablet, Refills 1, Tot. Refills 1, Maintenance, 03/14/20 13:59:00 EST, Route to Pharmacy Electronically, [facility]/pharmacy #2339, 160, cm, 02/28/20 10:28:00 EST, Height, 104, kg, 01/19/20 3:57:00 EDT, Dry Weight Start Date: 03/14/20 Status: Ordered Lasix 40 mg oral tablet 40 mg, 1, tablet, By Mouth, Daily, # 30 tablet, Refills 5, Tot. Refills 5, Maintenance, 03/11/20 13:11:00 EST, Route to Pharmacy Electronically, [facility]/pharmacy #2339, 160, cm, 02/28/20 10:28:00 EST, Height, 104, kg, 01/19/20 3:57:00 EDT, Dry Weight Start Date: 03/11/20 Status: Ordered lisinopril 10 mg oral tablet 10 mg, 1, tablet, By Mouth, Daily, # 90 tablet, Refills 0, Tot. Refills 0, Maintenance, 02/26/20 14:41:00 EST, Route to Pharmacy Electronically, [facility]/pharmacy #2339, Partial fill upon [...] tablet, 0 Refills, Maintenance, 03/11/20 15:21:00 EST, [facility]/pharmacy #2339, parital fill upon patient request, 160, cm, ... Start Date: 03/11/20 Stop Date: 04/10/20 Status: Ordered morphine 30 mg/8 to 12 hr oral tablet, extended release 1 tablet = 30 mg, By Mouth, 3 times a day, OPIATE AGREEMENT evaluated every 3 to 6 months, # 84 tablet, 0 Refills, Maintenance, 02/07/20 16:16:00 EST, [facility]/pharmacy #2339, may fill for less, 160, cm, 01/26/20 9:40:00 EST, Height, 104, kg, 01/19/20 3:5... Start Date: 02/07/20 Stop Date: 03/06/20 Status: Ordered Multivitamin Daily, 0 Refills, Maintenance, 05/25/16 13:36:30 Start Date: 05/25/16 Status: Ordered Nicoderm C-Q 21 mg/24 hr transdermal film, extended release 1 patch, Topically, Daily, # 30 patch, 3 Refills, Maintenance, 08/25/19 16:23:00 EDT, Patch, [facility]/pharmacy #2339, 157, cm, 08/25/19 15:55:00 EDT, Height Start Date: 08/25/19 Status: [facility] use [...] 01/22/20 9:08:00 EST, Route to Pharmacy Electronically, [facility]/pharmacy #2339, 160, cm, 01/22/20 7:53:00 EST, Height, 104, kg, 01/19/20 3:57:00 EDT, Dry Weight Start Date: 01/22/20 Stop Date: 07/20/20 Status: Ordered Ventolin HFA 108 mcg/inh inhalation aerosol with adapter 2 puffs, Inhalation, 4 times a day, PRN for wheezing, # 8 Gm, 5 Refills, Maintenance, 12/20/19 11:27:00 EDT, Aerosol, [facility]/pharmacy #2339, 156.6, cm, 10/23/19 15:34:00 EDT, Height Start Date: 12/20/19 Status: Ordered warfarin 5 mg oral tablet 1 tablet = 5 mg, By Mouth, Daily, # 30 tablet, 5 Refills, Maintenance, 02/26/20 12:12:00 EST, Tablet, [facility]/pharmacy #2339, 160, cm, 01/26/20 [...]
--- OUTSIDE RECORDS SUMMARY | 2023-08-02 08:34 | XMS_ITS | Continuity of Care Document ---
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 4Admin Note: [employer] 5Admin Note: [employer],[place] 6Admin Note: Novaritis Medications amLODIPine 5 mg oral tablet 5 mg, 1, tablet, By Mouth, Daily, # 90 tablet, Refills 1, Tot. 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 Refills 0, Maintenance, 08/04/17 9:05:52 EDT, Route to Pharmacy Electronically, [id number], [facility] 3 Start Date: 08/04/17 Status: Ordered Ativan 0.5 mg oral tablet 1 tablet = 0.5 mg, By Mouth, 3 times a day, PRN anxiety, # 90 tablet, 2 Refills, Maintenance, 12/05/18 17:10:00 EDT, Tablet Start Date: 12/05/18 Status: Ordered atorvastatin 40 mg oral tablet 1 tablet = 40 mg, By Mouth, Daily, # 30 tablet, 11 Refills, Maintenance, Tablet, Route to Pharmacy Electronically, [id number], [facility]/pharmacy #2339 Start Date: 12/09/17 Status: Ordered CeleXA 40 mg oral tablet 1, tablet, By Mouth, Daily, # 90 tablet, Refills 1, Tot. Refills 1, Maintenance, 08/01/18 14:14:28 EDT, Route to Pharmacy Electronically, [id number], [facility]/pharmacy #2339 Start Date: 08/01/18 Stop Date: 01/28/19 Status: Ordered CPAP Machine See Instructions, # [...] months, # 28 tablet, 0 Refills, Maintenance, 02/14/19 14:46:00 EST, Tablet, parital fill upon patient request Start Date: 02/14/19 Status: Ordered morphine 15 mg/8 to 12 hr oral tablet, extended release 1 tablet = 15 mg, By Mouth, Every 8 hours, On substance agreement evaluated every 3 to 6 months, # 69 tablet, 0 Refills, Maintenance, 02/07/19 10:09:00 EST, parital fill upon patient request Start Date: 02/07/19 Stop Date: 03/02/19 Status: Ordered morphine 30 mg/8 to 12 hr oral tablet, extended release 1 tablet = 30 mg, By Mouth, 3 times a day, OPIATE AGREEMENT evaluated every 3 to 6 months, # 84 tablet, 0 Refills, Maintenance, 02/14/19 14:46:00 EST, may fill for less Start Date: 02/14/19 Stop Date: 03/14/19 Status: Ordered Multivitamin Daily, 0 Refills, Maintenance, [...] EDT, Patch Start Date: 06/29/18 Status: Ordered Optichamber [facility] use with inhaler Optich[facility] use with inhaler, See Instructions, # [...] 14:55:12 EDT, Aerosol, Route to Pharmacy Electronically, [id number], [facility]/pharmacy #2339 Start Date: 10/28/18 Status: Ordered Ventolin [...]
--- OUTSIDE RECORDS SUMMARY | 2023-08-02 08:34 | XMS_ITS | Continuity of Care Document ---
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 5Admin Note: [facility] 6Admin Note: [employer],[place] 7Admin Note: Novaritis Medications Albuterol (Eqv-ProAir HFA) 2 puffs, Inhalation, Every 6 hours, 0 Refills, Maintenance, 10/13/21 13:54:00 EDT, Partial fill upon patient request if the prescription is for a schedule II opioid drug. Start Date: 10/13/21 Status: Ordered amLODIPine 10 mg oral tablet 1 tablet, By Mouth, Daily, # 90 tablet, 3 Refills, Maintenance, 02/23/22 8:50:00 EST, [facility] 02505, 157.48, cm, 01/20/22 14:40:00 EDT, Height, 111, kg, 06/10/21 15:06:00 EDT, Dry Weight Start Date: 02/23/22 Status: Ordered ARIPiprazole 5 mg oral tablet 1, tablet, By Mouth, Daily, for 90 days, TO BE COMBINED WITH THE CITALOPRAM THERAPY, # 90 tablet, Refills 3, Tot. Refills 3, Physician Stop 08/01/22 9:00:00 EDT, 08/06/21 9:00:00 EDT, Route to Pharmacy Electronically, [facility]/pharmacy #2339, 157.48, cm, 0... Start Date: 08/06/21 Stop Date: 08/01/22 Status: Ordered aspirin 81 mg oral delayed release tablet 81 mg, By Mouth, Daily, # 30 tablet, Refills 11, Tot. Refills 11, Maintenance, 06/12/21 9:27:00 EDT, Route to Pharmacy Electronically, [facility], Partial fill upon patient request if the prescription is for a schedule II opioid drug., 1... Start Date: 06/12/21 Stop Date: 06/07/22 Status: Ordered Ativan 0.5 mg oral tablet 1 tablet = 0.5 mg, By Mouth, Daily at bedtime, PRN as needed for anxiety, # 30 tablet, 5 Refills, Maintenance, 05/25/22 7:04:00 EST, Tablet, [facility]/pharmacy #2339, Partial fill upon patient request if the prescription is for a schedule II opioid drug., 1... Start Date: 05/25/22 Status: Ordered citalopram 40 mg oral tablet 1 tablet, By Mouth, Daily, for 90 days, # 90 tablet, 3 Refills, Physician Stop 08/01/22 9:01:00 EDT, 08/06/21 9:01:00 EDT, [facility]/pharmacy #2339, 157.48, cm, 08/05/21 14:31:00 EDT, [...] EVERY DAY, # 90 tablet, 1 Refills, [facility] 64448, 90, TAKE 1 TABLET BY MOUTH EVERY [...] 1 each, 11 Refills, 06/02/21 14:01:00 EDT[facility] 2 puffs Inhalation 2 times a day, 160, cm, 06/02/21 13:26:00 EDT, Height, 103, kg, 04/10/20 11:20:00 EST, Dry Weight Start Date: 06/02/21 Status: Ordered Entresto 24 mg-26 mg oral tablet 1 tablet, By Mouth, 2 times a day, # 60 tablet, 11 Refills, [facility] 81469, 30, TAKE 1 TABLET BY MOUTH TWICE [...] 08/06/21 9:01:00 EDT, [facility] 157.48, cm, 08/05/21 14:31:00 EDT, Height, 111,... Start Date: 08/06/21 Stop Date: 08/01/22 Status: Ordered furosemide 20 mg oral tablet 1, tablet, By Mouth, Daily, # 30 tablet, Refills 5, Maintenance, 12/30/21 15:04:00 EDT, Route to Pharmacy Electronically, [facility] 25105, 157.48, cm, 11/04/21 11:33:00 EDT, Height, 111, kg, 06/10/2214:06:00 EDT, Dry Weight Start Date: 12/30/21 Status: Ordered Lipitor 80 mg oral tablet 1 tablet = 80 mg, By Mouth, Daily at bedtime, # 30 tablet, 11 Refills, Maintenance, 06/12/21 9:27:00 EDT, Tablet, [facility], Partial fill upon patient request if the prescription is for a schedule II opioid drug., 157.48, cm, 03/22/22 1... Start Date: 06/12/21 Status: Ordered Metoprolol Succinate ER 25 mg oral tablet, extended release 1 tablet, By Mouth, Daily, # 90 tablet, 2 Refills, Maintenance, 05/21/22 10:15:00 EST, [facility] 83[facility], 157.48, cm, 05/18/22 9:48:00 EST, Height, 111, kg, 06/10/21 15:06:00 EDT, Dry Weight Start Date: 05/21/22 Status: Ordered rOPINIRole 0.25 mg oral tablet See Instructions, TAJE 1 TABLET BY MOUTH AT BEDTIME FOR 1 WEEK THEN INCRAESE TO 2 AT NIGHT FOR 1 WEEK THEN 3 EVERY NIG, # 90 tablet, 5 Refills, Maintenance, 02/23/22 8:50:00 EST, [facility] 83005, 157.48, cm, 01/20/22 14:40:00 EDT, Height, 111, kg, 03... Start Date: 02/23/22 Status: Ordered spironolactone 25 mg oral tablet 0.5, tablet, By Mouth, Daily, # 45 tablet, Refills 1, Maintenance, 05/21/22 10:15:00 EST, Route to Pharmacy Electronically, [facility] 35749, 157.48, cm, 05/18/22 9:48:00 EST, Height, 111, kg, 06/10/21 15:06:00 EDT, Dry Weight Start Date: 05/21/22 Status: Ordered warfarin 5 mg oral tablet See Instructions, Take 1/2 to 1 tablet By Mouth Daily as directed by coumadin clinic, # 90 tablet, 2 Refills, Maintenance, 05/12/22 13:52:00 EST, Tablet, [facility]/pharmacy #2339, Partial fill upon patientrequest if the prescription is for a schedule II... Start Date: 05/12/22 Status: Ordered Problem List Condition Confirmation Course Effective Dates Status H ealth Status Informant Asthma Confirmed Active Atrial fibrillation Confirmed Active Back pain 1 Confirmed Active Cardiomyopathy Confirmed Active Major depression, chronic Confirmed Active CHF (congestive heart failure) ([id number]% on echo 2019) Confirmed Active Coronary artery [...] [Reference Range]: 1 Oxygen Saturation [94-100 %] 98 % (06/11/22 3:51 PM) Pulse Rate [55-90 bpm] 66 bpm (06/11/22 3:51 PM) Blood Pressure [90-138/55-84 mm Hg] 96/6 7mm Hg (06/11/22 3:51 PM) Mode of Delivery (Oxygen) Room air (06/11/22 3:51 PM) Blood pressure sites Arm, left (06/11/22 3:51 PM) Social History Social History Type Response Smoking Status Former smoker, quit more than 30 days ago; Other: quit June 2021; entered on: 05/18/22 Sex Female Cardiology Outpatient Note * Miranda Merchant MA: PERFORM, SIGN, VERIFY Event Display: Cardiology Note Office Authored Date: [id number] Patient: MEY ALFREDO Age: 66 years Sex: Female : 1955 Associated Diagnoses: None Author: Miranda Merchant MA Visit Information Type of Visit Had appointment. REASON FOR VISIT Other Test/Exam: BP check. Assessment: OTHER Patient presented for a 1 month follow up BP check after medication change patient and has been taking Spironolactone 25mg .5 tab PO Daily since follow up visit on 05/12/22. Patient states that he hashad no symptom changes at this time. Patient sat for 15 minutes prior to blood pressure being taken, Mey reading is 96/67 with a pulse of 66. Patient also advised that a message will be sent to theinical pool and to provider for review, and someone will be in contact with her. Patient stated understanding and left the office. . Medications/Treatments Action Taken. Results Review 7 Day Results Today's results : ALL RESULTS SECTIONS 06/11/2022 15:51 EDT Pulse Rate 66 bpm Systolic Blood Pressure 96 mm Hg Diastolic Blood Pressure 67 mm Hg Blood pressure sites Arm, left Mean Arterial Pressure 77 mm Hg Pulse Pressure 29 mm Hg Oxygen Saturation 98 % Mode of Delivery (Oxygen) Room air Assessment Forms Vital Signs Vital Signs Form Vital Signs Form Patient Care team information Care Team Personnel Name: Komal Villelaianna Position: [facility] RN Supv Member Role: Primary Care Nurse Name: Nichole Coates RN Position: [facility] SN RN Member Role: Primary Care Nurse Name: Ksenia Herzog RN Position: S RN Member Role: Primary Care Nurse Name: Leatha Walsh RN Position: [facility] SN RN Member Role: Primary Care Nurse Name: Milagro Sims RN Position: [facility] RN Member Role: Primary Care Nurse Name: Jo Ann Stubbs PharmD Position: [facility] Associate Professional Member Role: [employer] Provider Address: Address: [address] [place] [address]- Name: Anne Gonzalez RN Position: [facility] RN Member Role: Primary Care Nurse Name: Mckayla Wilcox RN Position: [facility] SN RN Member Role: Primary Care Nurse Name: Simin Chen RN Position: [facility] RN Member Role: Primary Care Nurse Name: Jose Martinez MD Position: [facility] Primary Care Physician Member Role: PCP Address: Address: [address] [place] [address]- Name: Aleks Merchant RN Position: [facility] RN Member Role: Primary Care Nurse Name: Genet Bowman RN Position: [facility] SN RN Member Role: Primary Care Nurse Name: Ilana Burns RN Position: [facility] RN Member Role: Primary Care Nurse Care Team Related Persons Name: TUTU ROWLAND Address: home [address] [place], [place] Name: JANET CONNOR Address: [address] [place] [address]
--- OUTSIDE RECORDS SUMMARY | 2023-08-02 08:34 | XMS_ITS | Continuity of Care Document ---
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 5Admin Note: [facility] 6Admin Note: [employer],[place] 7Admin Note: Novaritis Medications ARIPiprazole 5 mg oral tablet 1, tablet, By Mouth, Daily, TO BE COMBINED WITH THE CITALOPRAM THERAPY, # 90 tablet, Refills 1, Route to Pharmacy Electronically, [facility] STORE [address]3336, 162.5, cm, 12/27/20 14:39:00 EDT, Height, 103, kg, 04/10/20 11:20:00 EST, Dry Weight Start Date: 01/16/21 Status: Ordered Ativan 0.5 mg oral tablet 1 tablet = 0.5 mg, By Mouth, 3 times a day, PRN anxiety, # 90 tablet, 2 Refills, Maintenance, 10/14/20 13:39:00 EDT, Tablet, [facility]/pharmacy #2339, 162.5, cm, 05/15/20 10:27:00 EST, Height, 103, kg, 04/10/20 11:20:00 EST, Dry Weight Start Date: 10/14/20 Status: Ordered atorvastatin 40 mg oral tablet 1 tablet = 40 mg, By Mouth, Daily, # 90 tablet, 1 Refills, Maintenance, 11/16/19 10:37:00 EDT, Tablet, [facility]/pharmacy #2339, 156.6, cm, 10/23/19 15:34:00 EDT, Height, Dry Weight Start Date: 11/16/19 Status: Ordered citalopram 40 mg oral tablet 1 tablet, By Mouth, Daily, # 90 tablet, 1 Refills, Maintenance, 10/28/20 14:21:00 EDT, [facility]/pharmacy#2339, 162.5, cm, 05/15/20 10:27:00 EST, Height, 103, [...] 0 Refills, Maintenance, 01/15/21 17:11:00 EDT, Tablet, [facility]/pharmacy #2339, parital fill upon patient request, 162.5, cm, 12/27/20 1... Start Date: 01/15/21 Status: Ordered Dulera 100 mcg-5 mcg/inh inhalation aerosol 2 puffs, Inhalation, 2 times a day, # 13 Unknown, 11 Refills, Maintenance, 07/22/20 7:52:00 EDT, [facility], 30, INHALE 2 PUFFS TWICE A DAY, 162.5, cm, 05/15/20 10:27:00 EST, Height, 103, kg, 04/10/20 11:20:00 EST, Dry Weight Start Date: 07/22/20 Status: Ordered ferrous sulfate 325 mg oral enteric coated tablet 1, tablet, By Mouth, 2 times a day, # 180 tablet, Refills 1, Tot. Refills 0, Maintenance, 10/17/20 7:27:00 EDT, Route to Pharmacy Electronically, [facility] 16538, 162.5, cm, 05/15/20 10:27:00 EST, Height, 103, kg, 04/10/20 11:20:00 EST, Dry Weight Start Date: 10/17/20 Status: Ordered lisinopril 10 mg oral tablet 1, tablet, By Mouth, Daily, # 90 tablet, Refills 3, Route to Pharmacy Electronically, [facility] 75338, 162.5, cm, 05/15/20 10:27:00 EST, Height, 103, kg, 04/10/20 11:20:00 EST, Dry Weight Start Date: 11/13/20 Status: Ordered Metoprolol Succinate ER 25 mg oral tablet, extended release 1 tablet, By Mouth, Daily, # 90 tablet, 1 Refills, Maintenance, 07/22/20 7:32:00 EDT, [facility] STORE 33240, 162.5, cm, 05/15/20 10:27:00 EST, Height, 103, kg, 04/10/20 11:20:00 EST, Dry Weight Start Date: 07/22/20 Status: Ordered morphine 15 mg/8 to 12 hr oral tablet, extended release 1 tablet = 15 mg, By Mouth, Every 8 hours, PRN Pain , Moderate, On substance agreement evaluated every 3 to 6 months, # 90 tablet, 0 Refills, Maintenance, 01/15/21 17:11:00 EDT, [facility]/pharmacy #2339, parital fill upon patient request, 162.5, cm, 12/27... Start Date: 01/15/21 Stop Date: 02/14/21 Status: Ordered morphine 30 mg/8 to 12 hr oral tablet, extended release 1 tablet = 30 mg, By Mouth, 3 times a day, OPIATE AGREEMENT evaluated every 3 to 6 months, # 84 tablet, 0 Refills, Maintenance, 01/15/21 17:11:00 EDT, [facility]/pharmacy #2339, may fill for less, 162.5, cm, 12/27/20 14:39:00 EDT, Height, 103, kg, 04/10/20... Start Date: 01/15/21 Stop Date: 02/12/21 Status: Ordered Multivitamin Daily, 0 Refills, Maintenance, 05/25/16 13:36:30 Start Date: 05/25/16 Status: Ordered Nicoderm C-Q 21 mg/24 hr transdermal film, extended release 1 patch, Topically, Daily, # 30 patch, 3 Refills, Maintenance, 08/25/19 16:23:00 EDT, Patch, [facility]/pharmacy #2339, 157, cm, 08/25/19 15:55:00 EDT, Height Start Date: 08/25/19 Status: Ordered [facility] use with inhaler [facility] use with inhaler, See Instructions, [...] Refills, Maintenance, 10/17/20 12:35:00 EDT, [facility], 162.5, cm, 05/15/20 10:27:00 EST, Height, 103, [...] tablet, 1 Refills, Maintenance, 09/02/20 8:48:00 EDT, [facility] 33203, 162.5, cm, 05/15/20 10:27:00 EST, Height, 103, kg, 04/10/20 11:20:00 EST, Dry Weight Start Date: 09/02/20 Status: Ordered Problem List Condition Effective Dates Status Health Status Inform ant Asthma(Confirmed) Active Atrial fibrillation(Confirmed) Active Back pain(Confirmed) 1 Active Major depression, chronic(Confirmed) Active CHF (congestive heart failur e) (XYKU01-59% on echo 2019)(Confirmed) Active Continuous opioid dependence(Confirmed) [...]
--- OUTSIDE RECORDS SUMMARY | 2023-08-02 08:34 | XMS_ITS | Continuity of Care Document ---
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 Refills 0, Maintenance, 08/04/17 9:05:52 EDT, Route to Pharmacy Electronically, [id number], [facility] 3 Start Date: 08/04/17 Status: Ordered Ativan 0.5 mg oral tablet 1 tablet = 0.5 mg, By Mouth, 3 times a day, PRN anxiety, # 90 tablet, 2 Refills, Maintenance, 03/20/19 16:41:00 EST, Tablet, [facility]/pharmacy #2339, 157, cm, 01/13/19 9:10:00 EDT, Height, 104, kg, 08/03/17 12:54:00 EDT, Dry Weight Start Date: 03/20/19 Status: Ordered atorvastatin 40 mg oral tablet 1 tablet = 40 mg, By Mouth, Daily, # 30 tablet, 5 Refills, Maintenance, 03/20/19 15:53:00 EST, Tablet, [facility]/pharmacy #2339, 157, cm, 01/13/19 9:10:00 EDT, Height, 104, kg, 08/03/17 12:54:00 EDT, Dry Weight Start Date: 03/20/19 Status: Ordered CeleXA 40 mg oral tablet 1, tablet, By Mouth, Daily, # 90 tablet, Refills 1, Tot. Refills 1, Maintenance, 03/20/19 16:10:00 EST, Route to Pharmacy Electronically, [facility]/pharmacy #2339, 157, cm, 01/13/19 9:10:00 EDT, [...] EDT, Patch Start Date: 06/29/18 Status: Ordered [facility] use with inhaler [facility] use with inhaler, See [...] 14:55:12 EDT, Aerosol, Route to Pharmacy Electronically, [id number], [facility]/pharmacy #[id number] Start Date: 10/28/18 Status: Ordered Ventolin HFA [...]
--- OUTSIDE RECORDS SUMMARY | 2023-08-02 08:34 | XMS_ITS | Continuity of Care Document ---
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 Start Date: 10/13/21 Status: Ordered amLODIPine 10 mg oral tablet 1 tablet, By Mouth, Daily, # 90 tablet, 3 Refills, Maintenance, 02/23/22 8:50:00 EST, [facility] ST[facility]804, 157.48, cm, 01/20/22 14:40:00 EDT, Height, 111, kg, 06/10/21 15:06:00 EDT, Dry Weight Start Date: 02/23/22 Status: Ordered ARIPiprazole 5 mg oral tablet 1, tablet, By Mouth, Daily, X90 DAYS,INSTR:TO BE COMBINED WITH THE CITALOPRAM THERAPY, # 90 tablet,Refills 1, Maintenance, 07/26/22 7:25:00 EDT, Route to Pharmacy Electronically, [facility] 66731, 157.48, cm, 05/18/22 9:48:00 EST, Height, 111, kg, 03/... Start Date: 07/26/22 Status: Ordered aspirin 81 mg oral delayed release tablet 81 mg, By Mouth, Daily, # 30 tablet, Refills 11, Tot. Refills 11, Maintenance, 06/12/21 9:27:00 EDT, Route to Pharmacy Electronically, [facility], Partial fill upon patient request if the prescription is for a schedule II opioid drug., 1... Start Date: 06/12/21 Stop Date: 06/07/22 Status: Ordered Ativan 0.5 mg oral tablet 1 tablet = 0.5 mg, By Mouth, Daily at bedtime, PRN as needed for anxiety, # 30 tablet, 5 Refills, Maintenance, 10/27/22 13:20:00 EDT, Tablet, [facility]/pharmacy #2339, Partial fill upon patient request if the prescription is for a schedule II opioid drug.,... Start Date: 10/27/22 Status: Ordered atorvastatin 80 mg oral tablet 1 tablet, By Mouth, Daily at bedtime, # 90 tablet, 1 Refills, Maintenance, 10/12/22 12:22:00 EDT, [facility] 83255, 157.48, cm, 08/28/22 9:39:00 EDT, Height, 111, kg, 06/10/21 15:06:00 EDT, Dry Weight Start Date: 10/12/22 Status: Ordered citalopram 40 mg oral tablet 1 tablet, By Mouth, Daily, # 90 tablet, 1 Refills, Maintenance, 11/25/22 22:48:00 EDT, [facility], 157.48, cm, 11/17/22 16:49:00 EDT, Height, 111, [...] # 90 tablet, 1 Refills, [facility], 90, TAKE 1 TABLET BY MOUTH EVERY [...] Refills, Maintenance, 07/08/22 11:55:00 EDT, [facility], 30, INHALE 2 PUFFS TWICE A DAY, 157.48, cm, 05/18/22 9:48:00 EST, Height, 111, kg, 06/10/21 15:06:00 EDT, Dry Weight Start Date: 07/08/22 Status: Ordered Entresto 24 mg-26 mg oral tablet 1 tablet, By Mouth, 2 times a day, # 60 tablet, 11 Refills, Maintenance, 09/21/22 14:36:00 EDT, [facility], 30, TAKE 1 TABLET BY MOUTH TWICE A DAY, 157.48, cm, 08/28/22 9:39:00 EDT, Height, 111,kg, 06/10/21 15:06:00 EDT, Dry Weight Start Date: 09/21/22 Status: Ordered Entresto 24 mg-26 mg oral tablet 1 tablet, By Mouth, 2 times a day, # 60 tablet, 11 Refills, [facility], 30, TAKE 1 TABLET BY MOUTH TWICE A DAY, 157.48, cm, 08/12/21 10:44:00 EDT, Height, 111, kg, 06/10/21 15:06:00 EDT, Dry Weight Start Date: 09/18/21 Status: Ordered ferrous sulfate 325 mg oral enteric coated tablet 1, tablet, By Mouth, 2 times a day, # 180 tablet, Refills 1, Maintenance, 07/26/22 7:26:00 EDT, Route to Pharmacy Electronically, [facility], 157.48, cm, 05/18/22 9:48:00 EST, Height, 111, kg, 06/10/21 15:06:00 EDT, Dry Weight Start Date: 07/26/22 Status: Ordered furosemide 20 mg oral tablet 1, tablet, By Mouth, Daily, # 90 tablet, Refills 1, Maintenance, 07/02/22 8:00:00 EDT, Route to Pharmacy Electronically, [facility] 20479, 157.48, cm, 05/18/22 9:48:00 EST, Height, 111, kg, 06/10/21 15:06:00 EDT, Dry Weight Start Date: 07/02/22 Status: Ordered furosemide 20 mg oral tablet 1, tablet, By Mouth, Daily, # 30 tablet, Refills 5, Maintenance, 12/30/21 15:04:00 EDT, Route to Pharmacy Electronically, [facility] 00207, 157.48, cm, 11/04/21 11:33:00 EDT, Height, 111, kg, 06/10/2214:06:00 EDT, Dry Weight Start Date: 12/30/21 Status: Ordered Metoprolol Succinate ER 100 mg oral tablet, extended release 1.5 tablet = 150 mg, By Mouth, Daily, # 135 tablet, 3 Refills, Maintenance, 10/12/22 15:26:00 EDT, XL Tablet, [facility]/pharmacy #2339, Partial fill upon patient [...] tablet, 0 Refills, Maintenance, 11/25/22 22:49:00 EDT, [facility] [address]4785, 157.48, cm, 11/17/22 16:49:00 EDT, Height, 111, kg, 0... Start Date: 11/25/22 Status: Ordered spironolactone 25 mg oral tablet 0.5, tablet, By Mouth, Daily, # 45 tablet, Refills 1, Maintenance, 05/21/22 10:15:00 EST, Route to Pharmacy Electronically, [facility] 81650, 157.48, cm, 05/18/22 9:48:00 EST, Height, 111, kg, 06/10/21 15:06:00 EDT, Dry Weight Start Date: 05/21/22 Status: Ordered warfarin 5 mg oral tablet See Instructions, Take 1/2 to 1 tablet By Mouth Daily as directed by coumadin clinic, # 90 tablet, 2 Refills, Maintenance, 05/12/22 13:52:00 EST, Tablet, [facility], Partial fill upon patientrequest if the prescription is for a schedule II... Start Date: 05/12/22 Status: Ordered Problem List Condition Confirmation Course Effective Dates Status H ealth Status Informant Asthma Confirmed Active Atrial fibrillation Confirmed Active Back pain 1 Confirmed Active Cardiomyopathy Confirmed Active Major depression, chronic Confirmed Active CHF (congestive heart failure) (TXFI03-01% on echo 2019) Confirmed Active Coronary artery [...] Care Team Personnel Name: Radha Villela Position: [facility] RN Supv Member Role: Primary Care Nurse Name: Nichole Coates RN Position: [facility] RN Member Role: Primary Care Nurse Name: Ksenia Herzog RN Position: [facility] RN Member Role: Primary Care Nurse Name: Leatha Walsh RN Position: [facility] RN Member Role: Primary Care Nurse Name: Milagro Sims RN Position: [facility] RN Member Role: Primary Care Nurse Name: Jo Ann Stubbs PharmD Position: [facility] Associate Professional Member Role: [employer] Consult[employer] Provider Address: Address: [address] [place] [address] [facility] [place], [place] [address] Name: Anne Gonzalez RN Position: [facility] RN Member Role: Primary Care Nurse Name: Mckayla Wilcox RN Position: [facility] RN Member Role: Primary Care Nurse Name: Simin Chen RN Position: [facility] RN Member Role: Primary Care Nurse Name: Jose Martinez MD Position: S Physician - Primary Care Member Role: PCP Address: Address: [address] [place] [id number] Name: Aleks Merchant RN Position: [facility] RN Member Role: Primary Care Nurse Name: Genet Bowman RN Position: [facility] SN RN Member Role: Primary Care Nurse Name: Ilana Burns RN Position: [facility] RN Member Role: Primary Care Nurse Care Team Related Persons Name: TUTU ROWLAND Address: [address] [place] [address] Name: JANET CONNOR Address: home [address] [place] [address]
--- OUTSIDE RECORDS SUMMARY | 2023-08-02 08:34 | XMS_ITS | Continuity of Care Document ---
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 5Admin Note: [employer] [facility] 6Admin Note: [employer],[place] 7Admin Note: Novaritis Medications ARIPiprazole 5 mg oral tablet 1, tablet, By Mouth, Daily, TO BE COMBINED WITH THE CITALOPRAM THERAPY, # 90 tablet, Refills 0, Route to Pharmacy Electronically, [facility] 7[facility], 160, cm, 06/02/21 13:26:00 EDT, Height, 103, kg, 04/10/20 11:20:00 EST, Dry Weight Start Date: 06/03/21 Status: Ordered aspirin 81 mg oral delayed release tablet 81 mg, By Mouth, Daily, # 30 tablet, Refills 11, Tot. Refills 11, Maintenance, 06/12/21 9:27:00 EDT, Route to Pharmacy Electronically, [facility], Partial fill upon patient request [...] Mouth, Daily, # 90 tablet, 1 Refills, [facility] 83326, 162.5, cm, 01/29/21 12:38:00 EST, Height, 103, kg, 04/10/20 11:20:00 EST, Dry Weight Start Date: 04/07/21 Status: Ordered Dulera 100 mcg-5 mcg/inh inhalation aerosol 2 puffs, Inhalation, 2 times a day, # 1 each, 11 Refills, 06/02/21 14:01:00 EDT, [facility]/pharmacy #2339, 2 puffs Inhalation 2 times a day, 160, cm, 06/02/21 13:26:00 EDT, Height, 103, kg, 04/10/20 11:20:00 EST, Dry Weight Start Date: 06/02/21 Status: Ordered ferrous sulfate 325 mg oral enteric coated tablet 1, tablet, By Mouth, 2 times a day, # 180 tablet, Refills 1, Route to Pharmacy Electronically, [facility] STORE 90336, 162.5, cm, 01/29/21 12:38:00 EST, Height, 103, [...] of lasix that day and call your pulp piler's office for a... Start Date: 06/12/21 Status: Ordered Lipitor 80 mg oral tablet 1 tablet = 80 mg, By Mouth, Daily at bedtime, # 30 tablet, 11 Refills, Maintenance, 06/12/21 9:27:00 EDT, Tablet, [facility], Partial fill upon patient request if the prescription is for a schedule II opioid drug., 157.48, cm, 06/10/21 1... Start Date: 06/12/21 Status: Ordered lisinopril 5 mg oral tablet 5 mg, 1, tablet, By Mouth, Daily, # 30 tablet, Refills 2, Tot. Refills 2, Maintenance, 06/12/21 9:27:00 EDT, Route to Pharmacy Electronically, [facility], Partial fill upon patient request if the prescription is for a schedule II opioid... Start Date: 06/12/21 Status: Ordered Metoprolol Succinate ER 25 mg oral tablet, extended release 1 tablet, By Mouth, Daily, # 30 tablet, 1 Refills, Maintenance, 06/12/21 9:27:00 EDT, [facility], 157.48, cm, 06/10/21 17:04:00 EDT, Height, 111, kg, 06/10/21 15:06:00 EDT, Dry Weight Start Date: 06/12/21 Status: Ordered morphine 15 mg/8 to 12 hr oral tablet, extended release 1 tablet = 15 mg, By Mouth, Every 8 hours, PRN Pain , Moderate, On substance agreement evaluated every 3 to 6 months, # 84 tablet, 0 Refills, Maintenance, 06/25/21 16:52:00 EDT, [facility]/pharmacy #2339, parital fill upon patient request, 157.48, cm, 032... Start Date: 06/25/21 Stop Date: 07/23/21 Status: [...] 5 Refills, Maintenance, 06/09/21 15:31:00 EDT, Tablet, [facility]/pharmacy #2339, Partial fill upon patient [...] # 54 each, 1 Refills, Physician Stop, [facility] STORE 84138, 162.5, cm, 01/29/21 12:38:00 EST, Height, 103, kg, 04/10/20 11:20:00 EST, Dry Weight Start Date: 04/07/21 Stop Date: 07/06/21 Status: Ordered warfarin 5 mg oral tablet 0.5 tablet = 2.5 mg, By Mouth, Daily, Goal INR 2-3 Please follow up with your coumadin clinic, # 15tablet, 0 Refills, Maintenance, 06/12/21 9:27:00 EDT, Tablet, [facility], Partial fill upon patient request if the prescription is for a... Start Date: 06/12/21 Status: Ordered Problem List Condition Effective Dates Status Health Status Inform ant Asthma(Confirmed) Active Atrial fibrillation(Confirmed) Active Back pain(Confirmed) 1 Active Major depression, chronic(Confirmed) Active CHF (congestive heart failur e) (CSKP50-40% on echo 2019)(Confirmed) Active Continuous opioid dependence(Confirmed) [...]
--- OUTSIDE RECORDS SUMMARY | 2023-08-02 08:35 | XMS_ITS | Continuity of Care Document ---
Author Organization [facility] Address [address] [place] [address]- Care Team Providers Care Director Mobile Name Role Phone Jose Martinez MD Primary Care Physician Encounter [facility] Date(s): 02/26/20 - 03/27/20 [facility] [address] [place] [address] Attending Physician: Annetta Steinberg Admitting Physician: Annetta [...] inactive(oldterm) 6 01/21/09 Given 1Result Comment: [01/19/2018] [id number] 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 Refills 11, Maintenance, 07/31/19 14:19:00 EDT, [id number], [facility], cm, 07/31/19 13:53:00 EDT, Height, 1... Start Date: 07/31/19 Status: Ordered Ativan 0.5 mg oral tablet 1 tablet = 0.5 mg, By Mouth, 3 times a day, PRN anxiety, # 90 tablet, 2 Refills, Maintenance, 02/26/20 20:28:00 EST, [id number], 160, cm, 01/26/20 9:40:00 EST, Height, 104, kg, 01/19/20 3:57:00 EDT, Dry Weight Start Date: 02/26/20 Status: Ordered atorvastatin 40 mg oral tablet 1 tablet = 40 mg, By Mouth, Daily, # 90 tablet, 1 Refills, Maintenance, 11/16/19 10:37:00 EDT, Tablet, [id number], 156.6, cm, 10/23/19 15:34:00 EDT, Height, Dry Weight Start Date: 11/16/19 Status: Ordered citalopram 40 mg oral tablet 1 tablet, By Mouth, Daily, # 90 tablet, 1 Refills, Maintenance, 10/03/19 13:25:00 EDT, [id number], 157, cm, 08/25/19 15:55:00 EDT, Height Start [...] 0 Refills, Maintenance, 02/07/20 16:16:00 EST, Tablet, [facility]/pharmacy #[id number], parital fill upon patient request, 160, cm, 01/26/20 9:4... Start Date: 02/07/20 Status: Ordered Dulera 100 mcg-5 mcg/inh inhalation aerosol 2 puffs, Inhalation, 2 times a day, # 1 each, 11 Refills, Maintenance, 07/31/19 14:15:00 EDT, Aerosol, [facility]/pharmacy #[id number], 2 puffs Inhalation 2 times a day, 157, cm, 07/31/19 13:53:00 EDT, Height, 104, kg, 08/03/17 12:54:00 EDT, Dry Weight Start Date: 07/31/19 Status: Ordered ferrous sulfate 325 mg oral enteric coated tablet 325 mg, By Mouth, 2 times a day, # 60 tablet, Refills 1, Tot. Refills 1, Maintenance, 03/14/20 13:59:00 EST, Route to Pharmacy Electronically, [facility]/pharmacy #[id number], 160, cm, 02/28/20 10:28:00 EST, Height, 104, kg, 01/19/20 3:57:00 EDT, Dry Weight Start Date: 03/14/20 Status: Ordered Lasix 40 mg oral tablet 40 mg, 1, tablet, By Mouth, Daily, # 30 tablet, Refills 5, Tot. Refills 5, Maintenance, 03/11/20 13:11:00 EST, Route to Pharmacy Electronically, [facility]/pharmacy #[id number], 160, cm, 02/28/20 10:28:00 EST, Height, 104, kg, 01/19/20 3:57:00 EDT, Dry Weight Start Date: 03/11/20 Status: Ordered lisinopril 10 mg oral tablet 10 mg, 1, tablet, By Mouth, Daily, # 90 tablet, Refills 0, Tot. Refills 0, Maintenance, 02/26/20 14:41:00 EST, Route to Pharmacy Electronically, [facility]/pharmacy #[id number], Partial fill upon patient [...] tablet, 0 Refills, Maintenance, 03/11/20 15:21:00 EST, [facility]/pharmacy #[id number], parital fill upon patient request, 160, cm, ... Start Date: 03/11/20 Stop Date: 04/10/20 Status: Ordered morphine 30 mg/8 to 12 hr oral tablet, extended release 1 tablet = 30 mg, By Mouth, 3 times a day, OPIATE AGREEMENT evaluated every 3 to 6 months, # 84 tablet, 0 Refills, Maintenance, 02/07/20 16:16:00 EST, [facility]/pharmacy #[id number], may fill for less, 160, [...] EDT, Height Start Date: 08/25/19 Status: Ordered Citilog [facility] use with inhaler [facility] use with inhaler, See [...] 01/22/20 9:08:00 EST, Route to Pharmacy Electronically, [facility]/pharmacy #[id number], 160, cm, 01/22/20 7:53:00 EST, Height, 104, kg, 01/19/20 3:57:00 EDT, Dry Weight Start Date: 01/22/20 Stop Date: 07/20/20 Status: Ordered Ventolin HFA 108 mcg/inh inhalation aerosol with adapter 2 puffs, Inhalation, 4 times a day, PRN for wheezing, # 8 Gm, 5 Refills, Maintenance, 12/20/19 11:27:00 EDT, Aerosol, [facility]/pharmacy #2339, 156.6, cm, 10/23/19 15:34:00 EDT, Height Start Date: 12/20/19 Status: Ordered warfarin 5 mg oral tablet 1 tablet = 5 mg, By Mouth, Daily, # 30 tablet, 5 Refills, Maintenance, 02/26/20 12:12:00 EST, Tablet, [facility]/pharmacy #2339, 160, cm, 01/26/20 9:40:00 EST, [...]
--- OUTSIDE RECORDS SUMMARY | 2023-08-02 08:35 | XMS_ITS | Continuity of Care Document ---
Author Organization [facility] Address [address] [place] [address]- Care Team Providers Care Pitch Filler Name Role Phone Jose Martinez MD Primary Care Physician Encounter [facility] Date(s): 11/16/22 - 11/23/22 [facility] [address] [place] [address]- Encounter Diagnosis Severe obesity(Discharge Diagnosis) - 11/17/22 Asthma(Discharge Diagnosis) - 11/17/22 CHF (congestive heart failure) ([id number]% on echo 2019)(Discharge Diagnosis) - 11/17/22 Atrial fibrillation(Discharge Diagnosis) - 11/17/22 Attending Physician: Jose Martinez MD Allergies, Adverse [...] H1N1, inactive(oldterm) 7 01/21/09 Given 1Result Comment: [facility]:[id number] 2Result Comment: [01/19/2018] [id number] 3Admin Note: [employer]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 4Admin Note: [employer]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 5Admin Note: [employer] [facility] 6Admin Note: [employer] 7Admin Note: Novaritis Medications Albuterol (Eqv-ProAir HFA) 2 puffs, Inhalation, Every 6 hours, 0 Refills, Maintenance, 10/13/21 13:54:00 EDT, Partial fill upon patient request if the prescription is for a schedule II opioid drug. Start Date: 10/13/21 Status: Ordered amLODIPine 10 mg oral tablet 1 tablet, By Mouth, Daily, # 90 tablet, 3 Refills, Maintenance, 02/23/22 8:50:00 EST, [id number], 157.48, cm, 01/20/22 14:40:00 EDT, Height, 111, kg, 06/10/21 15:06:00 EDT, Dry Weight Start Date: 02/23/22 Status: Ordered ARIPiprazole 5 mg oral tablet 1, tablet, By Mouth, Daily, X90 DAYS,INSTR:TO BE COMBINED WITH THE CITALOPRAM THERAPY, # 90 tablet,Refills 1, Maintenance, 07/26/22 7:25:00 EDT, Route to Pharmacy Electronically, [facility] 768[facility], 157.48, cm, 05/18/22 9:48:00 EST, Height, 111, kg, ... Start Date: 07/26/22 Status: Ordered aspirin 81 [...] 5 Refills, Maintenance, 10/27/22 13:20:00 EDT, Tablet, [facility]/pharmacy #2339, Partial fill upon patient request if the prescription is for a schedule II opioid drug.,... Start Date: 10/27/22 Status: Ordered atorvastatin 80 mg oral tablet 1 tablet, By Mouth, Daily at bedtime, # 90 tablet, 1 Refills, Maintenance, 10/12/22 12:22:00 EDT, [facility], 157.48, cm, 08/28/22 9:39:00 EDT, Height, 111, kg, 06/10/21 15:06:00 EDT, Dry Weight Start Date: 10/12/22 Status: Ordered citalopram 40 mg oral tablet 1 tablet, By Mouth, Daily, # 90 tablet, 1 Refills, Maintenance, 06/22/22 14:38:00 EDT, [facility], 157.48, cm, 05/18/22 9:48:00 EST, Height, 111, [...] # 90 tablet, 1 Refills, [facility], 90, TAKE 1 TABLET BY MOUTH EVERY [...] each, 11 Refills, Maintenance, 07/08/22 11:55:00 EDT, [facility], 30, INHALE 2 PUFFS TWICE A DAY, 157.48, cm, 05/18/22 9:48:00 EST, Height, 111, kg, 06/10/21 15:06:00 EDT, Dry Weight Start Date: 07/08/22 Status: Ordered Entresto 24 mg-26 mg oral tablet 1 tablet, By Mouth, 2 times a day, # 60 tablet, 11 Refills, Maintenance, 09/21/22 14:36:00 EDT, [facility], 30, TAKE 1 TABLET BY MOUTH TWICE A DAY, 157.48, cm, 08/28/22 9:39:00 EDT, Height, 111,kg, 06/10/21 15:06:00 EDT, Dry Weight Start Date: 09/21/22 Status: Ordered Entresto 24 mg-26 mg oral tablet 1 tablet, By Mouth, 2 times a day, # 60 tablet, 11 Refills, [facility], 30, TAKE 1 TABLET BY MOUTH TWICE A DAY, 157.48, cm, 08/12/21 10:44:00 EDT, Height, 111, kg, 06/10/21 15:06:00 EDT, Dry Weight Start Date: 09/18/21 Status: Ordered ferrous sulfate 325 mg oral enteric coated tablet 1, tablet, By Mouth, 2 times a day, # 180 tablet, Refills 1, Maintenance, 07/26/22 7:26:00 EDT, Route to Pharmacy Electronically, [facility], 157.48, cm, 05/18/22 9:48:00 EST, Height, 111, kg, 06/10/21 15:06:00 EDT, Dry Weight Start Date: 07/26/22 Status: Ordered furosemide 20 mg oral tablet 1, tablet, By Mouth, Daily, # 90 tablet, Refills 1, Maintenance, 07/02/22 8:00:00 EDT, Route to Pharmacy Electronically, [id number], 157.48, cm, 05/18/22 9:48:00 EST, Height, 111, kg, 06/10/21 15:06:00 EDT, Dry Weight Start Date: 07/02/22 Status: Ordered furosemide 20 mg oral tablet 1, tablet, By Mouth, Daily, # 30 tablet, Refills 5, Maintenance, 12/30/21 15:04:00 EDT, Route to Pharmacy Electronically, [facility]1420, 157.48, cm, 11/04/21 11:33:00 EDT, Height, 111, kg, 06/10/2214:06:00 EDT, Dry Weight Start Date: 12/30/21 Status: Ordered Metoprolol Succinate ER 100 mg oral tablet, extended release 1.5 tablet = 150 mg, By Mouth, Daily, # 135 tablet, 3 Refills, Maintenance, 10/12/22 15:26:00 EDT, XL Tablet, [facility]/pharmacy #2339, Partial fill upon patient request if [...] tablet, 1 Refills, Maintenance, 06/22/22 14:48:00 EDT, [facility] 35503, 157.48, cm, 05/18/22 9:48:00 EST, Height, 111, kg, 03... Start Date: 06/22/22 Status: Ordered spironolactone 25 mg oral tablet 0.5, tablet, By Mouth, Daily, # 45 tablet, Refills 1, Maintenance, 05/21/22 10:15:00 EST, Route to Pharmacy Electronically, [facility] 0[facility]38, 157.48, cm, 05/18/22 9:48:00 EST, Height, 111, kg, 06/10/21 15:06:00 EDT, Dry Weight Start Date: 05/21/22 Status: Ordered warfarin 5 mg oral tablet See Instructions, Take 1/2 to 1 tablet By Mouth Daily as directed by coumadin clinic, # 90 tablet, 2 Refills, Maintenance, 05/12/22 13:52:00 EST, Tablet, [facility]/pharmacy #2339, Partial fill upon patientrequest if the prescription is for a schedule II... Start Date: 05/12/22 Status: Ordered Problem List Condition Confirmation Course Effective Dates Status H ealth Status Informant Asthma Confirmed Active Atrial fibrillation Confirmed Active Back pain 1 Confirmed Active Cardiomyopathy Confirmed Active Major depression, chronic Confirmed Active CHF (congestive heart failure) ([id number]% on echo 2019) Confirmed Active Coronary artery [...] Effective Dates Health Status Clinical Service Informant Severe obesity Discharge Diagnosis 11/17/22 Asthma Discharge Diagnosis 11/17/22 CHF (congestive heart failure) ([id number]% on 2019) Discharge Diagnosis 11/17/22 Atrial fibrillation Discharge Diagnosis 11/17/22 Vital Signs Most recent to oldest [Reference Range]: 1 Height 157.48 cm (11/16/22 9:33 AM) Weight 129.7 kg (11/16/22 9: AM) Oxygen Saturation [94-100 %] 97 % (11/16/22 9: AM) Pulse Rate [55-90 bpm] 72 bpm (11/16/22 9: AM) Body Mass Index [18.5-24.99 kg/m2] 52.3 kg/m2 *>HHI* (11/16/22 9: AM) Blood Pressure [90-138/55-84 mm Hg] 102/ 70mm Hg (11/16/22 9:33 AM) Blood pressure sites Arm, left (11/16/22 9:33 AM) Social History Social History Type Response Smoking Status Former smoker, quit more than 30 days ago; Other: quit June 2021; entered on: 05/18/22 Sex Female Patient Care team information Care Team Personnel Name: Radha Villela Position: [facility] RN Supv Member Role: Primary Care Nurse Name: Nichole Coates RN Position: [facility] SN RN Member Role: Primary Care Nurse Name: Ksenia Herzog RN Position: S RN Member Role: Primary Care Nurse Name: Leatha Walsh RN Position: [facility] SN RN Member Role: Primary Care Nurse Name: Milagro Sims RN Position: [facility] RN Member Role: Primary Care Nurse Name: Jo Ann Stubbs PharmD Position: [facility] Associate Professional Member Role: [employer] Provider Address: Address: [address] [place] [id number]- Name: Anne Gonzalez RN Position: [facility] RN Member Role: Primary Care Nurse Name: Mckayla Wilcox RN Position: [facility] SN RN Member Role: Primary Care Nurse Name: Simin Chen RN Position: [facility] RN Member Role: Primary Care Nurse Name: Jose Martinez MD Position: [facility] Physician - Primary Care Member Role: PCP Address: Address: [address] [place] [id number]- [place] Name: Aleks Merchant RN Position: [facility] RN Member Role: Primary Care Nurse Name: Genet Bowman RN Position: [facility] SN RN Member Role: Primary Care Nurse Name: Ilana Bursn RN Position: [facility] RN Member Role: Primary Care Nurse Care Team Related Persons Name: TUTU ROWLAND Address: home [address] [place] [address] Name: JANET CONNOR Address: home [address] [place] [address]
--- OUTSIDE RECORDS SUMMARY | 2023-08-02 08:35 | XMS_ITS | Continuity of Care Document ---
Author Organization [facility] Adult Address [address] [place] [address]- Care Team Providers Care [employer] Certified Network Associate Name Role Phone Jose Martinez MD Primary Care Physician [phone] Encounter [facility] Date(s): 04/19/23 - 04/26/23 [facility] [address] [place] [address]- Encounter Diagnosis Severe obesity(Discharge Diagnosis) - 04/19/23 Low back pain(Discharge Diagnosis) - 04/19/23 Attending Physician: Jose Martinez MD Allergies, Adverse [...] Given 1Result Comment: [facility]:[id number] 2Result Comment: [01/19/2018] [id number] 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 4Admin Note: [employer]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 5Admin Note: [email or web address] [facility] 6Admin Note: [facility] 7Admin Note: Novaritis Medications Albuterol (Eqv-ProAir HFA) 2 puffs, Inhalation, Every 6 hours, 0 Refills, Maintenance, 10/13/21 13:54:00 EDT, Partial fill upon patient request if the prescription is for a schedule II opioid drug. Start Date: 10/13/21 Status: Ordered amLODIPine 10 mg oral tablet 1 tablet, By Mouth, Daily, # 90 tablet, 1 Refills, Maintenance, 01/25/23 22:10:00 EST, [facility]17, 157.48, cm, 11/17/22 16:49:00 EDT, Height, 111, kg, 06/10/21 15:06:00 EDT, Dry Weight Start Date: 01/25/23 Status: Ordered ARIPiprazole 5 mg oral tablet 1, tablet, By Mouth, Daily, TO BE COMBINED WITH THE CITALOPRAM THERAPY., # 90 tablet, Refills 1, Tot. Refills 1, Maintenance, 04/01/23 21:26:00 EST, Route to Pharmacy Electronically, [facility]/pharmacy #2339, 157.48, cm, 11/17/22 16:49:00 EDT, Height, 111,... Start Date: 04/01/23 Status: Ordered aspirin 81 mg oral delayed release tablet 81 mg, By Mouth, Daily, # 30 tablet, Refills 11, Tot. Refills 11, Maintenance, 06/12/21 9:27:00 EDT, Route to Pharmacy Electronically, [facility], Partial fill upon patient request if the prescription is for a schedule II opioid drug., 1... Start Date: 06/12/21 Stop Date: 06/07/22 Status: Ordered Ativan 0.5 mg oral tablet 1 tablet = 0.5 mg, By Mouth, Daily at bedtime, PRN as needed for anxiety, # 30 tablet, 5 Refills, Maintenance, 12/04/22 15:42:00 EDT, Tablet, [facility]/pharmacy #2339, Partial fill upon patient request if the prescription is for a schedule II opioid drug.,... Start Date: 12/04/22 Status: Ordered atorvastatin 80 mg oral tablet 1 tablet, By Mouth, Daily at bedtime, # 90 tablet, 1 Refills, Maintenance, 10/12/22 12:22:00 EDT, [facility], 157.48, cm, 08/28/22 9:39:00 EDT, Height, 111, [...] Refills, Maintenance, 11/25/22 22:48:00 EDT, [facility], 157.48, cm, 11/17/22 16:49:00 EDT, Height, 111, [...] # 90 tablet, 1 Refills, [facility], 90, TAKE 1 TABLET BY MOUTH EVERY [...] each, 11 Refills, Maintenance, 07/08/22 11:55:00 EDT, [facility] 67237, 30, INHALE 2 PUFFS TWICE A DAY, 157.48, cm, 05/18/22 9:48:00 EST, Height, 111, kg, 06/10/21 15:06:00 EDT, Dry Weight Start Date: 07/08/22 Status: Ordered Entresto 24 mg-26 mg oral tablet 1 tablet, By Mouth, 2 times a day, # 60 tablet, 11 Refills, Maintenance, 09/21/22 14:36:00 EDT, [facility], 30, TAKE 1 TABLET BY MOUTH TWICE A DAY, 157.48, cm, 08/28/22 9:39:00 EDT, Height, 111,kg, 06/10/21 15:06:00 EDT, Dry Weight Start Date: 09/21/22 Status: Ordered Entresto 24 mg-26 mg oral tablet 1 tablet, By Mouth, 2 times a day, # 60 tablet, 11 Refills, [facility], 30, TAKE 1 TABLET BY MOUTH TWICE A DAY, 157.48, cm, 08/12/21 10:44:00 EDT, Height, 111, kg, 06/10/21 15:06:00 EDT, Dry Weight Start Date: 09/18/21 Status: Ordered ferrous sulfate 325 mg oral enteric coated tablet 1, tablet, By Mouth, 2 times a day, # 180 tablet, Refills 1, Maintenance, 07/26/22 7:26:00 EDT, Route to Pharmacy Electronically, [facility] 31750, 157.48, cm, 05/18/22 9:48:00 EST, Height, 111, kg, 06/10/21 15:06:00 EDT, Dry Weight Start Date: 07/26/22 Status: Ordered furosemide 20 mg oral tablet 1, tablet, By Mouth, Daily, # 90 tablet, Refills 1, Maintenance, 12/28/22 9:01:00 EDT, Route to Pharmacy Electronically, [facility] 28581, 157.48, cm, 11/17/22 16:49:00 EDT, Height, 111, kg, 06/10/21 15:06:00 EDT, Dry Weight Start Date: 12/28/22 Status: Ordered furosemide 20 mg oral tablet 1, tablet, By Mouth, Daily, # 90 tablet, Refills 1, Maintenance, 07/02/22 8:00:00 EDT, Route to Pharmacy Electronically, [facility] 58166, 157.48, cm, 05/18/22 9:48:00 EST, Height, 111, kg, 06/10/21 15:06:00 EDT, Dry Weight Start Date: 07/02/22 Status: Ordered furosemide 20 mg oral tablet 1, tablet, By Mouth, Daily, # 90 tablet, Refills 1, Maintenance, 04/26/23 12:41:00 EST, Route to Pharmacy Electronically, [facility] 96566, 157.48, cm, 04/19/23 8:28:00 EST, Height, 111, kg, 06/10/21 15:06:00 EDT, Dry Weight Start Date: 04/26/23 Status: Ordered furosemide 20 mg oral tablet 1, tablet, By Mouth, Daily, # 30 tablet, Refills 5, Maintenance, 12/30/21 15:04:00 EDT, Route to Pharmacy Electronically, [facility] 67687, 157.48, cm, 11/04/21 11:33:00 EDT, Height, 111, [...] NIGHT, # 249 tablet, 0 Refills, Maintenance, 01/25/23 22:13:00 EST, [facility] 32740, 157.48, cm, 11/17/22 16:49:00 EDT, Height, 111, kg, 0... Start Date: 01/25/23 Status: Ordered spironolactone 25 mg oral tablet 0.5, tablet, By Mouth, Daily, # 45 tablet, Refills 1, Maintenance, 05/21/22 10:15:00 EST, Route to Pharmacy Electronically, [facility] 64286, 157.48, cm, 05/18/22 9:48:00 EST, Height, 111, [...] chronic Confirmed Active CHF (congestive heart failure) (FPVF57-38% on echo 2019) Confirmed Active Coronary artery [...] Diagnosis Diagnosis Type Effective Dates Health Status Cl inical Service Informant Severe obesity Discharge Diagnosis 04/19/23 Low back pain Discharge Diagnosis 04/19/23 Vital Signs Most recent to oldest [Reference Range]: 1 Height 157.48 cm (04/19/23 8:28 AM) Weight 129.9 kg (04/19/23 8:28 AM) Oxygen Saturation [94-100 %] 96 % (04/19/23 8:28 AM) Pulse Rate [55-90 bpm] 82 bpm (04/19/23 8:28 AM) Body Mass Index [18.5-24.99 kg/m2] 52.38 kg/m2 *>HHI* (04/19/23 8:28 AM) Blood Pressure [90-138/55-84 mm Hg] 109/ 73mm Hg (04/19/23 8:28 AM) Temperature [96.8-100.4 DegF] 98.4 DegF (04/19/23 8:28 AM) Blood pressure sites Arm, left (04/19/23 8:28 AM) Temperature Route Oral (04/19/23 8:28 AM) Social History Social History Type Response Smoking Status Former smoker, quit more than 30 days ago; Other: quit June 2021; entered on: 05/18/22 Sex Female Note * Reyna Martinez [place]: PERFORM, SIGN, VERIFY Event Display: Patient Education/Instruction Authored Date: [id number] [facility] *[facility] Clinical Summary Name ELYSSA ALFREDO Age 67 Years 1955 PCP Jose Martinez MD PCP Visit Date 04/19/2023 08:27:00 Additional Instructions: Scheduled Appointments?? Future Appointments ?*[facility] ?[address] ?[address] ?[place],??[place],??[address] ?Phone:??--?Fax:??-- ?Appt. Date:??05/18/2023?4:20 PM ?Scheduled Provider:??Margi HICKEY, Ruth Campbell ?*[facility] ?[address]??[place],??[place],??[address] ?Phone:??--?Fax:??-- ?Appt. Date:??05/21/2023?12:40 PM ?Scheduled Provider:??Jose Martinez MD ?*[facility] ?[address]??[place],??[place],??[address] ?Phone:??--?Fax:??-- ?Appt. Date:??06/22/2023?8:30 AM ?Scheduled Provider:??Farheen Torres NP Follow-Up Instructions ?? Diagnosis Medications: Please continue your medications until treatment is completed or stopped by your provider. Discuss any questions related to medications with your provider. New Medications [facility]/pharmacy #2337, [address] [id number], [phone] semaglutide (Wegovy (0.25 mg dose) subcutaneous solution) 0.25 Milligram Subcutaneous Injection every week for 4 week(s). in the abdomen, thigh, or upper arm. Refills: 1. Next Dose: Medications to Continue with No Changes These [...] a day. Refills: 11. Next Dose: Spironolactone (spironolactone 25 mg oral tablet) 0.5 tab(s) Oral Daily. Refills: 1. Next Dose: Warfarin (warfarin 5 mg oral tablet) Take 1/2 to 1 tablet By Mouth Daily as directed by coumadin clinic. Refills: 2. Next Dose: Allergy Info:?? traZODone; Chantix; Cordran Tape; Nembutal Medications Given This Visit Future Orders ?No future orders Vital Signs Height 157.48 cm Weight BMI Blood Pressure 109 mm Hg/73 mm Hg Temperature 98.4 DegF Pulse Rate 82 bpm Respiratory Rate 02 Sat Mode of Delivery 96 %/ You can now view a summary of your hospital visit from the comfort of your home through a free online portal called [employer]. [employer] is a website that allows you to securely view your medical information including discharge summary, medications and follow-up visits. ??You can alsosend a secure electronic message to your doctor???s office to request appointments, renew medications or just ask a question. You can enroll at [email or web address] or register during your next office visit. [...] primary care provider, you may find a [facility] provider by calling [facility] [employer] [employer] at [phone]. [facility], in keeping with [facility] guidance, no longer requires face masks [...] Care Team Personnel Name: Radha Villela Position: [facility] RN Supv Member Role: Primary Care Nurse Name: Nichole Coates RN Position: [facility] RN Member Role: Primary Care Nurse Name: Ksenia Herzog RN Position: [facility] RN Member Role: Primary Care Nurse Name: Leatha Walsh RN Position: [facility] RN Member Role: Primary Care Nurse Name: Milagro Sims RN Position: [facility] ANGEL Nurse Member Role: Primary Care Nurse Name: Jo Ann Stubbs PharmD Position: [facility] Associate Professional Member Role: [employer] Provider Address: Address: [address] [place] [address]- [place] Name: Anne Gonzalez RN Position: [facility] RN Member Role: Primary Care Nurse Name: Mckayla Wilcox RN Position: [facility] SN RN Member Role: Primary Care Nurse Name: Simin Chen RN Position: [facility] RN Member Role: Primary Care Nurse Name: Jose Martinez MD Position: [facility] Physician - Primary Care Member Role: PCP Address: Address: [address] [place] [address]- [place] Name: Aleks Merchant RN Position: [facility] RN Member Role: Primary Care Nurse Name: Genet Bowman RN Position: [facility] RN Member Role: Primary Care Nurse Name: Ilana Burns RN Position: [facility] RN Member Role: Primary Care Nurse Care Team Related Persons Name: TUTU ROWLAND Address: home [address] [place] [address] Name: JANET CONNOR Address: home [address] [place] [address]
--- OUTSIDE RECORDS SUMMARY | 2023-08-02 08:35 | XMS_ITS | Continuity of Care Document ---
Author Organization [facility] Adult Address [address] [place] [address]- Care Team Providers Care Senior Applications Architect Name Role Phone Jose Martinez MD Primary Care Physician [phone] Encounter [facility] Date(s): 02/26/20 - 03/27/20 [facility] [address] [place] [address]- Allergies, Adverse Reactions, Alerts Substance Reaction Severity [...] inactive(oldterm) 6 01/21/09 Given 1Result Comment: [01/19/2018] [id number] 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 4Admin Note: [employer] 5Admin Note: [employer],[place] 6Admin Note: Novaritis Medications Abilify 5 mg oral tablet 5 mg, 1, tablet, By Mouth, Daily, to be combined with the citalopram therapy, # 30 tablet, Refills 11, Tot. Refills 11, Maintenance, 07/31/19 14:19:00 EDT, [facility], cm, 07/31/19 13:53:00 EDT, Height, 1... Start Date: 07/31/19 Status: Ordered Ativan 0.5 mg oral tablet 1 tablet = 0.5 mg, By Mouth, 3 times a day, PRN anxiety, # 90 tablet, 2 Refills, Maintenance, 02/26/20 20:28:00 EST, [facility], cm, 01/26/20 9:40:00 EST, Height, 104, kg, 01/19/20 3:57:00 EDT, Dry Weight Start Date: 02/26/20 Status: Ordered atorvastatin 40 mg oral tablet 1 tablet = 40 mg, By Mouth, Daily, # 90 tablet, 1 Refills, Maintenance, 11/16/19 10:37:00 EDT, [facility]t, [facility] 156[facility]6, cm, 10/23/19 15:34:00 EDT, Height, Dry Weight Start Date: 11/16/19 Status: Ordered citalopram 40 mg oral tablet 1 tablet, By Mouth, Daily, # 90 tablet, 1 Refills, Maintenance, 10/03/19 13:25:00 EDT, [facility] [address]1943, 157, cm, 08/25/19 15:55:00 EDT, Height Start [...] Refills, Maintenance, 02/07/20 16:16:00 EST, Tablet, [facility]/pharmacy #2339, parital fill upon patient request, 160, cm, 01/26/20 9:4... Start Date: 02/07/20 Status: Ordered Dulera 100 mcg-5 mcg/inh inhalation aerosol 2 puffs, Inhalation, 2 times a day, # 1 each, 11 Refills, Maintenance, 07/31/19 14:15:00 EDT, Aerosol, [facility]/pharmacy #2339, 2 puffs Inhalation 2 times a day, 157, cm, 07/31/19 13:53:00 EDT, Height, 104, kg, 08/03/17 12:54:00 EDT, Dry Weight Start Date: 07/31/19 Status: Ordered ferrous sulfate 325 mg oral enteric coated tablet 325 mg, By Mouth, 2 times a day, # 60 tablet, Refills 1, Tot. Refills 1, Maintenance, 03/14/20 13:59:00 EST, Route to Pharmacy Electronically, [facility]/pharmacy #2339, 160, cm, 02/28/20 10:28:00 EST, Height, 104, kg, 01/19/20 3:57:00 EDT, Dry Weight Start Date: 03/14/20 Status: Ordered Lasix 40 mg oral tablet 40 mg, 1, tablet, By Mouth, Daily, # 30 tablet, Refills 5, Tot. Refills 5, Maintenance, 03/11/20 13:11:00 EST, Route to Pharmacy Electronically, [facility]/pharmacy #2339, 160, cm, 02/28/20 10:28:00 EST, Height, 104, kg, 01/19/20 3:57:00 EDT, Dry Weight Start Date: 03/11/20 Status: Ordered lisinopril 10 mg oral tablet 10 mg, 1, tablet, By Mouth, Daily, # 90 tablet, Refills 0, Tot. Refills 0, Maintenance, 02/26/20 14:41:00 EST, Route to Pharmacy Electronically, [facility]/pharmacy #2339, Partial fill upon patient [...] 0 Refills, Maintenance, 03/11/20 15:21:00 EST, [facility]/pharmacy #2339, parital fill upon patient request, 160, cm, ... Start Date: 03/11/20 Stop Date: 04/10/20 Status: Ordered morphine 30 mg/8 to 12 hr oral tablet, extended release 1 tablet = 30 mg, By Mouth, 3 times a day, OPIATE AGREEMENT evaluated every 3 to 6 months, # 84 tablet, 0 Refills, Maintenance, 02/07/20 16:16:00 EST, [facility]/pharmacy #2339, may fill for less, 160, cm, 01/26/20 9:40:00 EST, Height, 104, kg, 01/19/20 3:5... Start Date: 02/07/20 Stop Date: 03/06/20 Status: Ordered Multivitamin Daily, 0 Refills, Maintenance, 05/25/16 13:36:30 Start Date: 05/25/16 Status: Ordered Nicoderm C-Q 21 mg/24 hr transdermal film, extended release 1 patch, Topically, Daily, # 30 patch, 3 Refills, Maintenance, 08/25/19 16:23:00 EDT, Patch, [facility]/pharmacy #2339, 157, cm, 08/25/19 15:55:00 EDT, Height Start Date: 08/25/19 Status: Ordered [facility] use with inhaler [facility] use with inhaler, See Instructions, [...] EST, Route to Pharmacy Electronically, [facility]/pharmacy #2339, 160, cm, 01/22/20 7:53:00 EST, Height, 104, kg, 01/19/20 3:57:00 EDT, Dry Weight Start Date: 01/22/20 Stop Date: 07/20/20 Status: Ordered Ventolin HFA 108 mcg/inh inhalation aerosol with adapter 2 puffs, Inhalation, 4 times a day, PRN for wheezing, # 8 Gm, 5 Refills, Maintenance, 12/20/19 11:27:00 EDT, Aerosol, [facility]/pharmacy #2339, 156.6, cm, 10/23/19 15:34:00 EDT, Height Start Date: 12/20/19 Status: Ordered warfarin 5 mg oral tablet 1 tablet = 5 mg, By Mouth, Daily, # 30 tablet, 5 Refills, Maintenance, 02/26/20 12:12:00 EST, Tablet, [facility]/pharmacy #2339, 160, cm, 01/26/20 9:40:00 [...]
--- OUTSIDE RECORDS SUMMARY | 2023-08-02 08:35 | XMS_ITS | Continuity of Care Document ---
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 5Admin Note: [facility] 6Admin Note: [employer] 7Admin Note: Novaritis Medications Albuterol (Eqv-ProAir HFA) [...] 08/06/21 9:00:00 EDT, Route to Pharmacy Electronically, [facility]/pharmacy #2339, 157.48, cm, 0... Start Date: 08/06/21 Stop Date: 08/01/22 Status: Ordered aspirin 81 mg oral delayed release tablet 81 mg, By Mouth, Daily, # 30 tablet, Refills 11, Tot. Refills 11, Maintenance, 06/12/21 9:27:00 EDT, Route to Pharmacy Electronically, [facility], Partial fill upon patient request if the prescription is for a schedule II opioid drug., 1... Start Date: 06/12/21 Stop Date: 06/07/22 Status: Ordered Ativan 0.5 mg oral tablet 1 tablet = 0.5 mg, By Mouth, Daily at bedtime, PRN as needed for anxiety, # 30 tablet, 1 Refills, Maintenance, 08/06/21 9:02:00 EDT, Tablet, [facility]/pharmacy #2339, Partial fill upon patient request if the prescription is for a schedule II opioid drug., 1... Start Date: 08/06/21 Status: Ordered citalopram 40 mg oral tablet 1 tablet, By Mouth, Daily, for 90 days, # 90 tablet, 3 Refills, Physician Stop 08/01/22 9:01:00 EDT, 08/06/21 9:01:00 EDT, [facility]/pharmacy #2339, 157.48, cm, 08/05/21 14:31:00 EDT, [...] 1 each, 11 Refills, 06/02/21 14:01:00 EDT, [facility]/pharmacy #2339, 2 puffs Inhalation 2 times a day, 160, cm, 06/02/21 13:26:00 EDT, Height, 103, kg, 04/10/20 11:20:00 EST, Dry Weight Start Date: 06/02/21 Status: Ordered Entresto 24 mg-26 mg oral tablet 1 tablet, By Mouth, 2 times a day, # 60 tablet, 11 Refills, [facility] 14645, 30, TAKE 1 TABLET BY MOUTH TWICE [...] 08/06/21 9:01:00 EDT, Route to Pharmacy Electronically, [facility]/pharmacy #2339, 157.48, cm, 08/05/21 14:31:00 EDT, [...] lasix that day and call your training representative's office for a... Start Date: 06/12/21 Status: Ordered Lipitor 80 mg oral tablet 1 tablet = 80 mg, By Mouth, Daily at bedtime, # 30 tablet, 11 Refills, Maintenance, 06/12/21 9:27:00 EDT, Tablet, [facility], Partial fill upon patient request if the prescription is for a schedule II opioid drug., 157.48, cm, 06/10/21 1... Start Date: 06/12/21 Status: Ordered metoprolol 100 mg oral tablet, extended release 100 mg, 1, tablet, By Mouth, Daily, # 90 tablet, Refills 3, Tot. Refills 3, Maintenance, 09/11/21 12:08:00 EDT, Route to Pharmacy Electronically, [facility]/pharmacy #2339, 157.48, cm, 08/12/21 10:44:00 EDT, [...] tablet, 0 Refills, Maintenance, 08/19/21 14:03:00 EDT, [facility], parital fill upon patient request, 157.48, cm, 2... Start Date: 08/19/21 Stop Date: 09/16/21 Status: Ordered morphine 15 mg/8 to 12 hr oral tablet, extended release 1 tablet = 15 mg, By Mouth, Every 8 hours, PRN Pain , Moderate, On substance agreement evaluated every 3 to 6 months, # 84 tablet, 0 Refills, Maintenance, 10/13/21 14:41:00 EDT, [facility]/pharmacy #2339, parital fill upon patient request, 157.48, cm, 2... Start Date: 10/13/21 Stop Date: 11/10/21 Status: Ordered morphine 15 mg/8 to 12 [...] 5 Refills, Maintenance, 06/09/21 15:31:00 EDT, Tablet, [facility]/pharmacy #2339, Partial fill upon [...] 0 Refills, Maintenance, 06/12/21 9:27:00 EDT, Tablet, [facility], Partial fill upon patient request if the prescription is for a... Start Date: 06/12/21 Status: Ordered Problem List Condition Effective Dates Status Health Status Inform ant Asthma(Confirmed) Active Atrial fibrillation(Confirmed) Active Back pain(Confirmed) 1 Active Major depression, chronic(Confirmed) Active CHF (congestive heart failur e) (FDBF38-47% on echo 2019)(Confirmed) Active Continuous opioid dependence(Confirmed) [...] to oldest [Reference Range]: 1 2 3 Oxygen Saturation [94-100 %] 99 % (10/24/21 5:56 PM) 99 % (10/24/21 4:08 PM) 99 % (10/24/21 1:10 PM) Pulse Rate [55-90 bpm] 65 bpm (10/24/21 5:56 PM) 60 bpm (10/24/21 4:08 PM) 70 bpm (10/24/21 1:10 PM) Blood Pressure [90-138/55-84 mm Hg] 158/80mm Hg *H* (10/24/21 5:56 PM) 133/84mm Hg (10/24/21 4:08 PM) 146/90mm Hg *H* (10/24/21 1:10 PM) Respiratory Rate [16-30 br/min] 18 br/min (10/24/21 5:56 PM) 18 br/min (10/24/21 4:08 PM) 17 br/min (10/24/21 1:10 PM) Temperature [96.8-100.4 DegF] 97.9 DegF (10/24/21 5:56 PM) 97.9 DegF (10/24/21 4:08 PM) 97.9 DegF (10/24/21 11:56 AM) Mode of Delivery (Oxygen) Room air (10/24/21 5:56 PM) Room air (10/24/21 4:08 PM) Room air (10/24/21 1:10 PM) Blood pressure sites Arm, right (10/24/21 5:56 PM) Arm, right (10/24/21 4:08 PM) Arm, right (10/24/21 1:10 PM) Temperature Route Oral (10/24/21 5:56 PM) Oral (10/24/21 4:08 PM) Oral (10/24/21 11:56 AM) Social History Social History Type Response Smoking Status 5-9 cigarettes (betw een 1/4 to 1/2 pack)/day in last 30 days; Other: Started at 23 years old; entered on: 01/18/20 Sex
--- OUTSIDE RECORDS SUMMARY | 2023-08-02 08:35 | XMS_ITS | Continuity of Care Document ---
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 Start Date: 10/13/21 Status: Ordered amLODIPine 10 mg oral tablet 1 tablet, By Mouth, Daily, # 90 tablet, 3 Refills, Maintenance, 02/23/22 8:50:00 EST, [facility] STORE [id number], 157.48, cm, 01/20/22 14:40:00 EDT, Height, 111, kg, 06/10/21 15:06:00 EDT, Dry Weight Start Date: 02/23/22 Status: Ordered ARIPiprazole 5 mg oral tablet 1, tablet, By Mouth, Daily, for 90 days, TO BE COMBINED WITH THE CITALOPRAM THERAPY, # 90 tablet, Refills 3, Tot. Refills 3, Physician Stop 08/01/22 9:00:00 EDT, 08/06/21 9:00:00 EDT, Route to Pharmacy Electronically, [facility]/pharmacy #[id number], 157.48, cm, 0... Start Date: 08/06/21 Stop Date: 08/01/22 Status: Ordered aspirin 81 mg oral delayed release tablet 81 mg, By Mouth, Daily, # 30 tablet, Refills 11, Tot. Refills 11, Maintenance, 06/12/21 9:27:00 EDT, Route to Pharmacy Electronically, [facility], Partial fill upon patient request if the prescription is for a schedule II opioid drug., 1... Start Date: 06/12/21 Stop Date: 06/07/22 Status: Ordered Ativan 0.5 mg oral tablet 1 tablet = 0.5 mg, By Mouth, Daily at bedtime, PRN as needed for anxiety, # 30 tablet, 3 Refills, Maintenance, 01/15/22 13:14:00 EDT, Tablet, [facility]/pharmacy #2339, Partial fill upon patient request if the prescription is for a schedule II opioid drug.,... Start Date: 01/15/22 Status: Ordered citalopram 40 mg oral tablet 1 tablet, By Mouth, Daily, for 90 days, # 90 tablet, 3 Refills, Physician Stop 08/01/22 9:01:00 EDT, 08/06/21 9:01:00 EDT, [facility]/pharmacy #2339, 157.48, cm, 08/05/21 14:31:00 EDT, [...] EVERY DAY, # 90 tablet, 1 Refills, [facility] STORE [id number], 90, TAKE 1 TABLET BY MOUTH EVERY [...] 1 each, 11 Refills, 06/02/21 14:01:00 EDT, [facility]/pharmacy #2339, 2 puffs Inhalation 2 times a day, 160, cm, 06/02/21 13:26:00 EDT, Height, 103, kg, 04/10/20 11:20:00 EST, Dry Weight Start Date: 06/02/21 Status: Ordered Entresto 24 mg-26 mg oral tablet 1 tablet, By Mouth, 2 times a day, # 60 tablet, 11 Refills, [facility] STORE 43149, 30, TAKE 1 TABLET BY MOUTH TWICE [...] 08/06/21 9:01:00 EDT, Route to Pharmacy Electronically, [facility]/pharmacy #2339, 157.48, cm, 08/05/21 14:31:00 EDT, Height, 111,... Start Date: 08/06/21 Stop Date: 08/01/22 Status: Ordered furosemide 20 mg oral tablet 1, tablet, By Mouth, Daily, # 30 tablet, Refills 5, Maintenance, 12/30/21 15:04:00 EDT, Route to Pharmacy Electronically, [facility] STORE 29221, 157.48, cm, 11/04/21 11:33:00 EDT, Height, 111, kg, 06/10/2214:06:00 EDT, Dry Weight Start Date: 12/30/21 Status: Ordered Lipitor 80 mg oral tablet 1 tablet = 80 mg, By Mouth, Daily at bedtime, # 30 tablet, 11 Refills, Maintenance, 06/12/21 9:27:00 EDT, Tablet, [facility], Partial fill upon patient request if the prescription is for a schedule II opioid drug., 157.48, cm, 06/10/21 1... Start Date: 06/12/21 Status: Ordered metoprolol 100 mg oral tablet, extended release 150 mg, 1.5, tablet, By Mouth, Daily, # 45 tablet, Refills 6, Tot. Refills 6, Maintenance, 01/20/2214:50:00 EDT, [facility] Partial fill upon patient request if the prescription is for a schedule II opioid d... Start Date: 01/20/22 Status: Ordered morphine 15 mg/8 to 12 hr oral tablet, extended release 1 tablet = 15 mg, By Mouth, Every 8 hours, PRN Pain , Moderate, On substance agreement evaluated every 3 to 6 months, # 84 tablet, 0 Refills, Maintenance, 08/19/21 14:03:00 EDT, [facility]/pharmacy #2339, parital fill upon patient request, 157.48, cm, 2... Start Date: 08/19/21 Stop Date: 09/16/21 Status: Ordered morphine 15 mg/8 to 12 hr oral tablet, extended release 1 tablet = 15 mg, By Mouth, Every 8 hours, PRN Pain , Moderate, On substance agreement evaluated every 3 to 6 months, # 84 tablet, 0 Refills, Maintenance, 11/25/21 15:15:00 EDT, [facility]/pharmacy #2339, parital fill upon patient [...] tablet, 5 Refills, Maintenance, 02/23/22 8:50:00 EST, [facility] STORE [id number], 157.48, cm, 01/20/22 14:40:00 EDT, Height, 111, [...] chronic Confirmed Active CHF (congestive heart failure) (HVIQ82-08% on echo 2019) Confirmed Active Continuous opioid [...] Name: Radha Villela Position: [facility] RN Supv Member Role: Primary Care Nurse Name: Nichole Coates RN Position: [facility] RN Member Role: Primary Care Nurse Name: Ksenia Herzog RN Position: [facility] RN Member Role: Primary Care Nurse Name: Leatha Walsh RN Position: [facility] RN Member Role: Primary Care Nurse Name: Milagro Sims RN Position: [facility] RN Member Role: Primary Care Nurse Name: Jo Ann Stubbs PharmD Position: [facility] Associate Professional Member Role: [employer] Provider Address: Address: [address] [place] [phone]- [place] Name: Anne Gonzalez RN Position: [facility] RN Member Role: Primary Care Nurse Name: Mckayla Wilcox RN Position: [facility] SN RN Member Role: Primary Care Nurse Name: Simin Chen RN Position: [facility] RN Member Role: Primary Care Nurse Name: Jose Martinez MD Position: [facility] Primary Care Physician Member Role: PCP Address: Address: [address] [place] [address]- [place] Name: Aleks Merchant RN Position: [facility] RN Member Role: Primary Care Nurse Name: Genet Bowman RN Position: [facility] SN RN Member Role: Primary Care Nurse Name: Ilana uBrns RN Position: [facility] RN Member Role: Primary Care Nurse Care Team Related Persons Name: TUTU ROWLAND Address: home [address] [place] [address] Name: JANET CONNOR Address: home [address] [place] [address]
--- OUTSIDE RECORDS SUMMARY | 2023-08-02 08:35 | XMS_ITS | Continuity of Care Document ---
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 5Admin Note: [employer] [facility] 6Admin Note: [employer],[place] 7Admin Note: Novaritis Medications ARIPiprazole 5 mg oral tablet 1, tablet, By Mouth, Daily, TO BE COMBINED WITH THE CITALOPRAM THERAPY, # 90 tablet, Refills 0, Route to Pharmacy Electronically, [facility] STORE 26340, 160, cm, 06/02/21 13:26:00 EDT, Height, 103, kg, 04/10/20 11:20:00 EST, Dry Weight Start Date: 06/03/21 Status: Ordered aspirin 81 mg oral delayed release tablet 81 mg, By Mouth, Daily, # 30 tablet, Refills 11, Tot. Refills 11, Maintenance, 06/12/21 9:27:00 EDT, Route to Pharmacy Electronically, [facility], Partial fill upon patient request [...] Mouth, Daily, # 90 tablet, 1 Refills, [facility] STORE 82810, 162.5, cm, 01/29/21 12:38:00 EST, Height, 103, kg, 04/10/20 11:20:00 EST, Dry Weight Start Date: 04/07/21 Status: Ordered Dulera 100 mcg-5 mcg/inh inhalation aerosol 2 puffs, Inhalation, 2 times a day, # 1 each, 11 Refills, 06/02/21 14:01:00 EDT, [facility]/pharmacy #2339, 2 puffs Inhalation 2 times a day, 160, cm, 06/02/21 13:26:00 EDT, Height, 103, kg, 04/10/20 11:20:00 EST, Dry Weight Start Date: 06/02/21 Status: Ordered ferrous sulfate 325 mg oral enteric coated tablet 1, tablet, By Mouth, 2 times a day, # 180 tablet, Refills 1, Route to Pharmacy Electronically, [facility] STORE 42155, 162.5, cm, 01/29/21 12:38:00 EST, Height, 103, [...] of lasix that day and call your correspondence coordinator's office for a... Start Date: 06/12/21 Status: Ordered Lipitor 80 mg oral tablet 1 tablet = 80 mg, By Mouth, Daily at bedtime, # 30 tablet, 11 Refills, Maintenance, 06/12/21 9:27:00 EDT, Tablet, [facility], Partial fill upon patient request if the prescription is for a schedule II opioid drug., 157.48, cm, 06/10/21 1... Start Date: 06/12/21 Status: Ordered lisinopril 5 mg oral tablet 5 mg, 1, tablet, By Mouth, Daily, # 30 tablet, Refills 11, Tot. Refills 11, Maintenance, 07/03/21 14:52:00 EDT, Route to Pharmacy Electronically, [facility]/pharmacy #2339, Partial fill upon patient requestif the prescription is for a schedule II opioid kal... Start Date: 07/03/21 Status: Ordered Metoprolol Succinate ER 25 mg oral tablet, extended release 1 tablet, By Mouth, Daily, # 30 tablet, 1 Refills, Maintenance, 06/12/21 9:27:00 EDT, [facility], 157.48, cm, 06/10/21 17:04:00 EDT, Height, 111, kg, 06/10/21 15:06:00 EDT, Dry Weight Start Date: 06/12/21 Status: Ordered morphine 15 mg/8 to 12 hr oral tablet, extended release 1 tablet = 15 mg, By Mouth, Every 8 hours, PRN Pain , Moderate, On substance agreement evaluated every 3 to 6 months, # 84 tablet, 0 Refills, Maintenance, 06/25/21 16:52:00 EDT, [facility]/pharmacy #2339, parital fill upon patient request, 157.48, [...] 5 Refills, Maintenance, 06/09/21 15:31:00 EDT, Tablet, [facility]/pharmacy #2339, Partial fill upon patient request if [...] 0 Refills, Maintenance, 06/12/21 9:27:00 EDT, Tablet, [facility], Partial fill upon patient request if the prescription is for a... Start Date: 06/12/21 Status: Ordered Problem List Condition Effective Dates Status Health Status Inform ant Asthma(Confirmed) Active Atrial fibrillation(Confirmed) Active Back pain(Confirmed) 1 Active Major depression, chronic(Confirmed) Active CHF (congestive heart failur e) (RAAV49-90% on echo 2019)(Confirmed) Active Continuous opioid dependence(Confirmed) [...]
--- OUTSIDE RECORDS SUMMARY | 2023-08-02 08:35 | XMS_ITS | Continuity of Care Document ---
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 4Admin Note: [employer] [facility] 5Admin Note: [employer],[place] 6Admin Note: Novaritis Medications Abilify 5 mg oral tablet 5 mg, 1, tablet, By Mouth, Daily, to be combined with the citalopram therapy, # 30 tablet, Refills 11, Tot. Refills 11, Maintenance, 07/31/19 14:19:00 EDT, [id number], cm, 07/31/19 13:53:00 EDT, Height, 1... Start Date: 07/31/19 Status: Ordered Ativan 0.5 mg oral tablet 1 tablet = 0.5 mg, By Mouth, 3 times a day, PRN anxiety, # 90 tablet, 2 Refills, Maintenance, 01/11/20 13:48:00 EDT, Tablet, [facility], 156.6, cm, 01/09/20 11:41:00 EDT, Height, Dry Weight Start Date: 01/11/20 Status: Ordered atorvastatin 40 mg oral tablet 1 tablet = 40 mg, By Mouth, Daily, # 90 tablet, 1 Refills, Maintenance, 11/16/19 10:37:00 EDT, Tablet, [facility], 156.6, cm, 10/23/19 15:34:00 EDT, Height, Dry Weight Start Date: 11/16/19 Status: Ordered citalopram 40 mg oral tablet 1 tablet, By Mouth, Daily, # 90 tablet, 1 Refills, Maintenance, 10/03/19 13:25:00 EDT, [facility] STORE 64923, 157, cm, 08/25/19 15:55:00 EDT, Height Start [...] 0 Refills, Maintenance, 12/21/19 11:53:00 EDT, Tablet, [facility]/pharmacy #2339, parital fill upon patient request, 156.6, cm, 10/23/19 1... Start Date: 12/21/19 Status: Ordered Dulera 100 mcg-5 mcg/inh inhalation aerosol 2 puffs, Inhalation, 2 times a day, # 1 each, 11 Refills, Maintenance, 07/31/19 14:15:00 EDT, Aerosol, [facility]/pharmacy #2339, 2 puffs Inhalation 2 times a day, 157, cm, 07/31/19 13:53:00 EDT, Height, 104, kg, 08/03/17 12:54:00 EDT, Dry Weight Start Date: 07/31/19 Status: Ordered ferrous sulfate 325 mg oral enteric coated tablet 325 mg, By Mouth, 2 times a day, # 60 tablet, Refills 0, Tot. Refills 0, Maintenance, 01/22/20 15:57:00 EST, Route to Pharmacy Electronically, [facility]/pharmacy #2339, 160, cm, 01/22/20 7:53:00 EST, Height, 104, kg, 01/19/20 3:57:00 EDT, Dry Weight Start Date: 01/22/20 Stop Date: 02/21/20 Status: Ordered Lasix 40 mg oral tablet 40 mg, 1, tablet, By Mouth, Daily, # 30 tablet, Refills 0, Tot. Refills 0, Maintenance, 01/22/20 15:57:00 EST, Route to Pharmacy Electronically, [facility]/pharmacy #2339, 160, cm, 01/22/20 7:53:00 EST, Height, 104, kg, 01/19/20 3:57:00 EDT, Dry Weight Start Date: 01/22/20 Stop Date: 02/21/20 Status: Ordered lisinopril 5 mg oral tablet 5 mg, 1, tablet, By Mouth, Daily, # 30 tablet, Refills 0, Tot. Refills 0, Maintenance, 01/22/20 15:57:00 EST, Route to Pharmacy Electronically, [facility]/pharmacy #2339, 160, cm, 01/22/20 7:53:00 EST, Height, 104, kg, 01/19/20 3:57:00 EDT, Dry Weight Start Date: 01/22/20 Stop Date: 02/21/20 Status: Ordered morphine 15 mg/8 to 12 hr oral tablet, extended release 1 tablet = 15 mg, By Mouth, Every 8 hours, PRN Pain , Moderate, On substance agreement evaluated every 3 to 6 months, # 90 tablet, 0 Refills, Maintenance, 01/11/20 13:48:00 EDT, [facility]/pharmacy #2339, parital fill upon patient request, 156.6, cm, 01/08... Start Date: 01/11/20 Stop Date: 02/10/20 Status: Ordered morphine 30 mg/8 to 12 hr oral tablet, extended release 1 tablet = 30 mg, By Mouth, 3 times a day, OPIATE AGREEMENT evaluated every 3 to 6 months, # 84 tablet, 0 Refills, Maintenance, 12/21/19 11:53:00 EDT, [facility]/pharmacy #2339, may fill for less, 156.6, cm, 10/23/19 15:34:00 EDT, Height, Dry Weight Start Date: 12/21/19 Stop Date: 01/18/20 Status: Ordered Multivitamin Daily, 0 Refills, Maintenance, 05/25/16 13:36:30 Start Date: 05/25/16 Status: Ordered Nicoderm C-Q 21 mg/24 hr transdermal film, extended release 1 patch, Topically, Daily, # 30 patch, 3 Refills, Maintenance, 08/25/19 16:23:00 EDT, Patch, [facility]/pharmacy #2339, 157, cm, 08/25/19 15:55:00 EDT, Height Start Date: 08/25/19 Status: Ordered [facility] use with inhaler [facility] use with inhaler, See Instructions, [...] 01/22/20 9:08:00 EST, Route to Pharmacy Electronically, [facility]/pharmacy #2339, 160, cm, 01/22/20 7:53:00 EST, Height, 104, kg, 01/19/20 3:57:00 EDT, Dry Weight Start Date: 01/22/20 Stop Date: 07/20/20 Status: Ordered Ventolin HFA 108 mcg/inh inhalation aerosol with adapter 2 puffs, Inhalation, 4 times a day, PRN for wheezing, # 8 Gm, 5 Refills, Maintenance, 12/20/19 11:27:00 EDT, Aerosol, [facility]/pharmacy #2339, 156.6, cm, 10/23/19 15:34:00 EDT, Height [...] Dates Health Status Cl inical Service Informant Dyspnea on exertion Discharge Diagnosis 01/17/20 Social History Social History Type Response Smoking Status 5-9 cigarettes (eduardo casanova 1/4 to 1/2 pack)/day in last 30 days; Other: Started at 23 years old; entered on: 01/18/20 Sex
--- OUTSIDE RECORDS SUMMARY | 2023-08-02 08:35 | XMS_ITS | Continuity of Care Document ---
Author Organization 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 6Admin Note: [employer] [facility] 7Admin Note: [employer]/MadayxCyther[employer],[place] 8Admin Note: Novaritis Medications Albuterol (Eqv-ProAir HFA) 2 puffs, Inhalation, Every 6 hours, 0 Refills, Maintenance, 10/13/21 13:54:00 EDT, Partial fill upon patient request if the prescription is for a schedule II opioid drug. Start Date: 10/13/21 Status: Ordered amLODIPine 10 mg oral tablet 1 tablet, By Mouth, Daily, # 90 tablet, 1 Refills, Maintenance, 01/25/23 22:10:00 EST, [facility], 157.48, cm, 11/17/22 16:49:00 EDT, Height, 111, kg, 06/10/21 15:06:00 EDT, Dry Weight Start Date: 01/25/23 Status: Ordered ARIPiprazole 5 mg oral tablet 1, tablet, By Mouth, Daily, TO BE COMBINED WITH THE CITALOPRAM THERAPY., # 90 tablet, Refills 1, Tot. Refills 1, Maintenance, 04/01/23 21:26:00 EST, Route to Pharmacy Electronically, [facility]/pharmacy #[id number], 157.48, cm, 11/17/22 16:49:00 EDT, Height, 111,... Start Date: 04/01/23 Status: Ordered aspirin 81 mg oral delayed release tablet 81 mg, By Mouth, Daily, # 30 tablet, Refills 11, Tot. Refills 11, Maintenance, 06/12/21 9:27:00 EDT, Route to Pharmacy Electronically, [facility], Partial fill upon patient request if the prescription is for a schedule II opioid drug., 1... Start Date: 06/12/21 Stop Date: 06/07/22 Status: Ordered Ativan 0.5 mg oral tablet 1 tablet = 0.5 mg, By Mouth, Daily at bedtime, PRN as needed for anxiety, # 30 tablet, 5 Refills, Maintenance, 05/25/23 10:30:00 EST, Tablet, [facility]/pharmacy #[id number], Partial fill upon patient request if the prescription is for a schedule II opioid drug.,... Start Date: 05/25/23 Status: Ordered atorvastatin 80 mg oral tablet 1 tablet, By Mouth, Daily at bedtime, # 90 tablet, 1 Refills, Maintenance, 10/12/22 12:22:00 EDT, [facility], 157.48, cm, 08/28/22 9:39:00 EDT, Height, 111, [...] Refills, Maintenance, 04/28/23 7:10:00 EST, [facility], 157.48, cm, 04/19/23 8:28:00 EST, Height, 111, [...] # 90 tablet, 1 Refills, [facility], 90, TAKE 1 TABLET BY MOUTH EVERY [...] each, 11 Refills, Maintenance, 07/08/22 11:55:00 EDT, [facility], 30, INHALE 2 PUFFS TWICE A DAY, 157.48, cm, 05/18/22 9:48:00 EST, Height, 111, kg, 06/10/21 15:06:00 EDT, Dry Weight Start Date: 07/08/22 Status: Ordered Entresto 24 mg-26 mg oral tablet 1 tablet, By Mouth, 2 times a day, # 60 tablet, 11 Refills, Maintenance, 09/21/22 14:36:00 EDT, [facility], 30, TAKE 1 TABLET BY MOUTH TWICE A DAY, 157.48, cm, 08/28/22 9:39:00 EDT, Height, 111,kg, 06/10/21 15:06:00 EDT, Dry Weight Start Date: 09/21/22 Status: Ordered Entresto 24 mg-26 mg oral tablet 1 tablet, By Mouth, 2 times a day, # 60 tablet, 11 Refills, [facility], 30, TAKE 1 TABLET BY MOUTH TWICE A DAY, 157.48, cm, 08/12/21 10:44:00 EDT, Height, 111, kg, 06/10/21 15:06:00 EDT, Dry Weight Start Date: 09/18/21 Status: Ordered ferrous sulfate 325 mg oral enteric coated tablet 1, tablet, By Mouth, 2 times a day, # 180 tablet, Refills 1, Maintenance, 07/26/22 7:26:00 EDT, Route to Pharmacy Electronically, [facility], 157.48, cm, 05/18/22 9:48:00 EST, Height, 111, kg, 06/10/21 15:06:00 EDT, Dry Weight Start Date: 07/26/22 Status: Ordered furosemide 20 mg oral tablet 1, tablet, By Mouth, Daily, # 90 tablet, Refills 1, Maintenance, 12/28/22 9:01:00 EDT, Route to Pharmacy Electronically, [facility], 157.48, cm, 11/17/22 16:49:00 EDT, Height, 111, kg, 06/10/21 15:06:00 EDT, Dry Weight Start Date: 12/28/22 Status: Ordered furosemide 20 mg oral tablet 1, tablet, By Mouth, Daily, # 90 tablet, Refills 1, Maintenance, 07/02/22 8:00:00 EDT, Route to Pharmacy Electronically, [facility], 157.48, cm, 05/18/22 9:48:00 EST, Height, 111, kg, 06/10/21 15:06:00 EDT, Dry Weight Start Date: 07/02/22 Status: Ordered furosemide 20 mg oral tablet 1, tablet, By Mouth, Daily, # 90 tablet, Refills 1, Maintenance, 04/26/23 12:41:00 EST, Route to Pharmacy Electronically, [facility] 55102, 157.48, cm, 04/19/23 8:28:00 EST, Height, 111, kg, 06/10/21 15:06:00 EDT, Dry Weight Start Date: 04/26/23 Status: Ordered furosemide 20 mg oral tablet 1, tablet, By Mouth, Daily, # 30 tablet, Refills 5, Maintenance, 12/30/21 15:04:00 EDT, Route to Pharmacy Electronically, [facility] 75905, 157.48, cm, 11/04/21 11:33:00 EDT, Height, 111, kg, 06/10/2214:06:00 EDT, Dry Weight Start Date: 12/30/21 Status: Ordered Metoprolol Succinate ER 100 mg oral tablet, extended release 1.5 tablet = 150 mg, By Mouth, Daily, # 135 tablet, 3 Refills, Maintenance, 10/12/22 15:26:00 EDT, XL Tablet, [facility]/pharmacy #2339, Partial fill upon patient request if [...] tablet, 0 Refills, Maintenance, 04/28/23 7:10:00 EST, [facility], 157.48, cm, 04/19/23 8:28:00 EST, Height, 111, kg, 03/... Start Date: 04/28/23 Status: Ordered spironolactone 25 mg oral tablet 25 mg, 1, tablet, By Mouth, Daily, # 90 tablet, Refills 3, Tot. Refills 3, Maintenance, 05/27/23 11:09:00 EST, Route to Pharmacy Electronically, [facility]/pharmacy #2339, 157.48, cm, 05/21/23 12:45:00 EST,Height, 111, kg, 06/10/21 15:06:00 EDT, Dry Weight Start Date: 05/27/23 Status: Ordered warfarin 5 mg oral tablet See Instructions, Take 1/2 to 1 tablet By Mouth Daily as directed by coumadin clinic, # 90 tablet, 2 Refills, Maintenance, 05/12/22 13:52:00 EST, Tablet, [facility]/pharmacy #2339, Partial fill upon patientrequest if the prescription is for a schedule II... Start Date: 05/12/22 Status: Ordered Wegovy (0.25 mg dose) subcutaneous solution = 0.25 mg, Subcutaneous Injection, Every week, for 4 week(s), in the abdomen, thigh, or upper arm, # 2 mL, 1 Refills, Acute 06/14/23 8:54:00 EDT, 04/19/23 8:54:00 EST, Solution, [facility]/pharmacy #2339, Partial fill upon patient request if the prescription... Start Date: 04/19/23 Stop Date: 06/14/23 Status: Ordered Problem List Condition Confirmation Course Effective Dates Status H ealth Status Informant Asthma Confirmed Active Atrial fibrillation Confirmed Active Back pain 1 Confirmed Active Cardiomyopathy Confirmed Active Major depression, chronic Confirmed Active CHF (congestive heart failure) ([id number]% on echo 2019) Confirmed Active Coronary artery [...] Care Team Personnel Name: Radha Villela Position: [facility] RN Supv Member Role: Primary Care Nurse Name: Nichole Coates RN Position: [facility] SN RN Member Role: Primary Care Nurse Name: Ksenia Herzog RN Position: [facility] RN Member Role: Primary Care Nurse Name: Leatha Walsh RN Position: [facility] RN Member Role: Primary Care Nurse Name: Milagro Sims RN Position: [facility] ANGEL Nurse Member Role: Primary Care Nurse Name: Jo Ann Stubbs PharmD Position: [facility] Associate Professional Member Role: [employer] Provider Address: Address: [address] [place] [address] [place] [address]- [place] Name: Anne Gonzalez RN Position: [facility] RN Member Role: Primary Care Nurse Name: Mckayla Wilcox RN Position: [facility] SN RN Member Role: Primary Care Nurse Name: Simin Chen RN Position: [facility] RN Member Role: Primary Care Nurse Name: Jose Martinez MD Position: [facility] Physician - Primary Care Member Role: PCP Address: Address: [address] [place] [address]- [place] Name: Aleks Merchant RN Position: [facility] RN Member Role: Primary Care Nurse Name: Genet Bowman RN Position: [facility] RN Member Role: Primary Care Nurse Name: Ilana Burns RN Position: S RN Member Role: Primary Care Nurse Care Team Related Persons Name: KASHIF TUTU Address: home [address] [place] [id number] Name: NIKOLAS JANET Address: home [address] [place] [id number]
--- OUTSIDE RECORDS SUMMARY | 2023-08-02 08:35 | XMS_ITS | Continuity of Care Document ---
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 4Admin Note: [employer] 5Admin Note: [employer],[place] 6Admin Note: Novaritis Medications Abilify 5 mg oral tablet 5 mg, 1, tablet, By Mouth, Daily, to be combined with the citalopram therapy, # 30 tablet, Refills 11, Tot. Refills 11, Maintenance, 07/31/19 14:19:00 EDT, [id number], cm, 07/31/19 13:53:00 EDT, Height, 1... Start Date: 07/31/19 Status: Ordered Ativan 0.5 mg oral tablet 1 tablet = 0.5 mg, By Mouth, 3 times a day, PRN anxiety, # 90 tablet, 2 Refills, Maintenance, 02/26/20 20:28:00 EST, Tablet[facility], cm, 01/26/20 9:40:00 EST, Height, 104, kg, 01/19/20 3:57:00 EDT, Dry Weight Start Date: 02/26/20 Status: Ordered atorvastatin 40 mg oral tablet 1 tablet = 40 mg, By Mouth, Daily, # 90 tablet, 1 Refills, Maintenance, 11/16/19 10:37:00 EDT, Tablet, [facility] 156.6, cm, 10/23/19 15:34:00 EDT, Height, Dry Weight Start Date: 11/16/19 Status: Ordered citalopram 40 mg oral tablet 1 tablet, By Mouth, Daily, # 90 tablet, 1 Refills, Maintenance, 10/03/19 13:25:00 EDT, [facility] ST[facility], 157, cm, 08/25/19 15:55:00 EDT, Height Start [...] 0 Refills, Maintenance, 02/07/20 16:16:00 EST, Tablet, [facility]/pharmacy #2339, parital fill upon patient request, 160, cm, 01/26/20 9:4... Start Date: 02/07/20 Status: Ordered Dulera 100 mcg-5 mcg/inh inhalation aerosol 2 puffs, Inhalation, 2 times a day, # 1 each, 11 Refills, Maintenance, 07/31/19 14:15:00 EDT, Aerosol, [facility]/pharmacy #2339, 2 puffs Inhalation 2 times a day, 157, cm, 07/31/19 13:53:00 EDT, Height, 104, kg, 08/03/17 12:54:00 EDT, Dry Weight Start Date: 07/31/19 Status: Ordered ferrous sulfate 325 mg oral enteric coated tablet 325 mg, By Mouth, 2 times a day, # 60 tablet, Refills 1, Tot. Refills 1, Maintenance, 02/16/20 10:07:00 EST, Route to Pharmacy Electronically, [facility]/pharmacy #2339, 160, cm, 01/26/20 9:40:00 EST, Height, 104, kg, 01/19/20 3:57:00 EDT, Dry Weight Start Date: 02/16/20 Status: Ordered Lasix 40 mg oral tablet 40 mg, 1, tablet, By Mouth, Daily, # 30 tablet, Refills 0, Tot. Refills 0, Maintenance, 02/16/20 10:07:00 EST, Route to Pharmacy Electronically, [facility]/pharmacy #2339, 160, cm, 01/26/20 9:40:00 EST, Height, 104, kg, 01/19/20 3:57:00 EDT, Dry Weight Start Date: 02/16/20 Status: Ordered lisinopril 10 mg oral tablet 10 mg, 1, tablet, By Mouth, Daily, # 90 tablet, Refills 0, Tot. Refills 0, Maintenance, 02/26/20 14:41:00 EST, Route to Pharmacy Electronically, [facility]/pharmacy #[id number], Partial fill upon [...] tablet, 0 Refills, Maintenance, 02/26/20 20:28:00 EST, [facility]/pharmacy #2339, parital fill upon patient request, 160, cm, ... Start Date: 02/26/20 Stop Date: 03/27/20 Status: Ordered morphine 30 mg/8 to 12 hr oral tablet, extended release 1 tablet = 30 mg, By Mouth, 3 times a day, OPIATE AGREEMENT evaluated every 3 to 6 months, # 84 tablet, 0 Refills, Maintenance, 02/07/20 16:16:00 EST, [facility]/pharmacy #2339, may fill for less, 160, cm, 01/26/20 9:40:00 EST, Height, 104, kg, 01/19/20 3:5... Start Date: 02/07/20 Stop Date: 03/06/20 Status: Ordered Multivitamin Daily, 0 Refills, Maintenance, 05/25/16 13:36:30 Start Date: 05/25/16 Status: Ordered Nicoderm C-Q 21 mg/24 hr transdermal film, extended release 1 patch, Topically, Daily, # 30 patch, 3 Refills, Maintenance, 08/25/19 16:23:00 EDT, Patch, [facility]/pharmacy #2339, 157, cm, 08/25/19 15:55:00 EDT, Height Start Date: 08/25/19 Status: Ordered [facility] use with inhaler [facility] use with inhaler, See Instructions, [...] 01/22/20 9:08:00 EST, Route to Pharmacy Electronically, [facility]/pharmacy #2339, 160, cm, 01/22/20 7:53:00 EST, Height, 104, kg, 01/19/20 3:57:00 EDT, Dry Weight Start Date: 01/22/20 Stop Date: 07/20/20 Status: Ordered Ventolin HFA 108 mcg/inh inhalation aerosol with adapter 2 puffs, Inhalation, 4 times a day, PRN for wheezing, # 8 Gm, 5 Refills, Maintenance, 12/20/19 11:27:00 EDT, Aerosol, [facility]/pharmacy #2339, 156.6, cm, 10/23/19 15:34:00 EDT, Height Start Date: 12/20/19 Status: Ordered warfarin 5 mg oral tablet 1 tablet = 5 mg, By Mouth, Daily, # 30 tablet, 5 Refills, Maintenance, 02/26/20 12:12:00 EST, Tablet, [facility]/pharmacy #2339, 160, cm, 01/26/20 [...]
--- OUTSIDE RECORDS SUMMARY | 2023-08-02 08:35 | XMS_ITS | Continuity of Care Document ---
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 4Admin Note: [employer] 5Admin Note: [employer],[place] 6Admin Note: Novaritis Medications Abilify 5 mg oral tablet 5 mg, 1, tablet, By Mouth, Daily, to be combined with the citalopram therapy, # 30 tablet, Refills 11, Tot. Refills 11, Maintenance, 07/31/19 14:19:00 EDT, [facility], cm, 07/31/19 13:53:00 EDT, Height, 1... Start Date: 07/31/19 Status: Ordered Ativan 0.5 mg oral tablet 1 tablet = 0.5 mg, By Mouth, 3 times a day, PRN anxiety, # 90 tablet, 2 Refills, Maintenance, 02/26/20 20:28:00 EST, Tablet, [facility] 160, cm, 01/26/20 9:40:00 EST, Height, 104, kg, 01/19/20 3:57:00 EDT, Dry Weight Start Date: 02/26/20 Status: Ordered atorvastatin 40 mg oral tablet 1 tablet = 40 mg, By Mouth, Daily, # 90 tablet, 1 Refills, Maintenance, 11/16/19 10:37:00 EDT, Tablet, [facility] 156.6, cm, 10/23/19 15:34:00 EDT, Height, Dry Weight Start Date: 11/16/19 Status: Ordered citalopram 40 mg oral tablet 1 tablet, By Mouth, Daily, # 90 tablet, 1 Refills, Maintenance, 10/03/19 13:25:00 EDT, [facility], 157, cm, 08/25/19 15:55:00 EDT, Height Start [...] 0 Refills, Maintenance, 02/07/20 16:16:00 EST, Tablet, [facility]/pharmacy #2339, parital fill upon patient request, 160, cm, 01/26/20 9:4... Start Date: 02/07/20 Status: Ordered Dulera 100 mcg-5 mcg/inh inhalation aerosol 2 puffs, Inhalation, 2 times a day, # 1 each, 11 Refills, Maintenance, 07/31/19 14:15:00 EDT, Aerosol, [facility]/pharmacy #2339, 2 puffs Inhalation 2 times a day, 157, cm, 07/31/19 13:53:00 EDT, Height, 104, kg, 08/03/17 12:54:00 EDT, Dry Weight Start Date: 07/31/19 Status: Ordered ferrous sulfate 325 mg oral enteric coated tablet 325 mg, By Mouth, 2 times a day, # 60 tablet, Refills 1, Tot. Refills 1, Maintenance, 03/14/20 13:59:00 EST, Route to Pharmacy Electronically, [facility]/pharmacy #2339, 160, cm, 02/28/20 10:28:00 EST, Height, 104, kg, 01/19/20 3:57:00 EDT, Dry Weight Start Date: 03/14/20 Status: Ordered Lasix 40 mg oral tablet 40 mg, 1, tablet, By Mouth, Daily, # 30 tablet, Refills 5, Tot. Refills 5, Maintenance, 03/11/20 13:11:00 EST, Route to Pharmacy Electronically, [facility]/pharmacy #2339, 160, cm, 02/28/20 10:28:00 EST, Height, 104, kg, 01/19/20 3:57:00 EDT, Dry Weight Start Date: 03/11/20 Status: Ordered lisinopril 10 mg oral tablet 10 mg, 1, tablet, By Mouth, Daily, # 90 tablet, Refills 0, Tot. Refills 0, Maintenance, 02/26/20 14:41:00 EST, Route to Pharmacy Electronically, [facility]/pharmacy #2339, Partial fill upon patient [...] tablet, 0 Refills, Maintenance, 03/11/20 15:21:00 EST, [facility]/pharmacy #2339, parital fill upon patient request, 160, cm, ... Start Date: 03/11/20 Stop Date: 04/10/20 Status: Ordered morphine 30 mg/8 to 12 hr oral tablet, extended release 1 tablet = 30 mg, By Mouth, 3 times a day, OPIATE AGREEMENT evaluated every 3 to 6 months, # 84 tablet, 0 Refills, Maintenance, 02/07/20 16:16:00 EST, [facility]/pharmacy #2339, may fill for less, 160, cm, 01/26/20 9:40:00 EST, Height, 104, kg, 01/19/20 3:5... Start Date: 02/07/20 Stop Date: 03/06/20 Status: Ordered Multivitamin Daily, 0 Refills, Maintenance, 05/25/16 13:36:30 Start Date: 05/25/16 Status: Ordered Nicoderm C-Q 21 mg/24 hr transdermal film, extended release 1 patch, Topically, Daily, # 30 patch, 3 Refills, Maintenance, 08/25/19 16:23:00 EDT, Patch, [facility]/pharmacy #2339, 157, cm, 08/25/19 15:55:00 EDT, Height Start Date: 08/25/19 Status: Ordered [facility] use with inhaler [facility] use with inhaler, See [...] 01/22/20 9:08:00 EST, Route to Pharmacy Electronically, [facility]/pharmacy #2339, 160, cm, 01/22/20 7:53:00 EST, Height, 104, kg, 01/19/20 3:57:00 EDT, Dry Weight Start Date: 01/22/20 Stop Date: 07/20/20 Status: Ordered Ventolin HFA 108 mcg/inh inhalation aerosol with adapter 2 puffs, Inhalation, 4 times a day, PRN for wheezing, # 8 Gm, 5 Refills, Maintenance, 12/20/19 11:27:00 EDT, Aerosol, [facility]/pharmacy #2339, 156.6, cm, 10/23/19 15:34:00 EDT, Height Start Date: 12/20/19 Status: Ordered warfarin 5 mg oral tablet 1 tablet = 5 mg, By Mouth, Daily, # 30 tablet, 5 Refills, Maintenance, 02/26/20 12:12:00 EST, Tablet, [facility]/pharmacy #2339, 160, cm, 01/26/20 9:40:00 [...]
--- OUTSIDE RECORDS SUMMARY | 2023-08-02 08:35 | XMS_ITS | Continuity of Care Document ---
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 Name Role Phone Jose Martinez MD Primary Care Physician [facility] Date[facility]s): 08/12/21 - 08/19/21 [facility] [address] [place] [address]- Encounter Diagnosis Atrial fibrillation(Discharge Diagnosis) - 08/12/21 Coronary artery disease(Discharge Diagnosis) - 08/12/21 Hyperlipidemia(Discharge Diagnosis) - 08/12/21 Hypertension(Discharge Diagnosis) - 08/12/21 Obesity (BMI 30-39.9)(Discharge Diagnosis) - 08/12/21 CHF (congestive heart failure) (FUUY92-38% on echo 2019)(Discharge Diagnosis) - 08/12/21 Attending Physician: Ruth Kiser MD Referring Physician: [...] H1N1, inactive(oldterm) 7 01/21/09 Given 1Result Comment: [facility]:[id number] 2Result Comment: [01/19/2018] [id number] 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 4Admin Note: [employer]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 [facility] 6Admin Note: [employer] 7Admin Note: Novaritis Medications ARIPiprazole 5 mg oral tablet 1, tablet, By Mouth, Daily, for 90 days, TO BE COMBINED WITH THE CITALOPRAM THERAPY, # 90 tablet, Refills 3, Tot. Refills 3, Physician Stop 08/01/22 9:00:00 EDT, 08/06/21 9:00:00 EDT, Route to Pharmacy Electronically, [facility]/pharmacy #[id number], 157.48, cm, 0... Start Date: 08/06/21 Stop Date: 08/01/22 Status: Ordered aspirin 81 mg oral delayed release tablet 81 mg, By Mouth, Daily, # 30 tablet, Refills 11, Tot. Refills 11, Maintenance, 06/12/21 9:27:00 EDT, Route to Pharmacy Electronically, [facility], Partial fill upon patient request if the prescription is for a schedule II opioid drug., 1... Start Date: 06/12/21 Stop Date: 06/07/22 Status: Ordered Ativan 0.5 mg oral tablet 1 tablet = 0.5 mg, By Mouth, Daily at bedtime, PRN as needed for anxiety, # 30 tablet, 1 Refills, Maintenance, 08/06/21 9:02:00 EDT, Tablet, [facility]/pharmacy #[id number], Partial fill upon patient request if the prescription is for a schedule II opioid drug., 1... Start Date: 08/06/21 Status: Ordered citalopram 40 mg oral tablet 1 tablet, By Mouth, Daily, for 90 days, # 90 tablet, 3 Refills, Physician Stop 08/01/22 9:01:00 EDT, 08/06/21 9:01:00 EDT, [facility]/pharmacy #2339, 157.48, cm, 08/05/21 14:31:00 EDT, [...] 2 times a day, # 60 tablet, 0 Refills, Maintenance, 08/12/21 11:05:00 EDT, Tablet, [facility]/pharmacy #2339, Partial fill upon patient request if the prescription is for a schedule II opioid drug., 1 tablet By Mouth 2 times a day, 157.48... Start Date: 08/12/21 Status: Ordered ferrous sulfate 325 mg oral enteric coated tablet 1, tablet, By Mouth, 2 times a day, for 90 days, # 180 tablet, Refills 3, Tot. Refills 3, PhysicianStop 08/01/22 9:01:00 EDT, 08/06/21 9:01:00 EDT, Route to Pharmacy Electronically, [facility]/pharmacy #2336, 157.48, cm, 08/05/21 14:31:00 EDT, Height, 111,... [...] of lasix that day and call your customer care assistant's office for a... Start Date: 06/12/21 Status: Ordered Lipitor 80 mg oral tablet 1 tablet = 80 mg, By Mouth, Daily at bedtime, # 30 tablet, 11 Refills, Maintenance, 06/12/21 9:27:00 EDT, Tablet, [facility], Partial fill upon patient request if the prescription is for a schedule II opioid drug., 157.48, cm, 06/10/21 1... Start Date: 06/12/21 Status: Ordered metoprolol 50 mg oral tablet, extended release 50 mg, 1, tablet, By Mouth, Daily, take in addition to 25mg tab daily total 75mg daily, # 30 tablet, Refills 6, Tot. Refills 6, Maintenance, 07/25/21 8:35:00 EDT, Route to Pharmacy Electronically, [facility]/pharmacy #2339, Partial fill upon patient request... Start Date: 07/25/21 Status: Ordered Metoprolol Succinate ER 25 mg oral tablet, extended release 1 tablet, By Mouth, Daily, take in addition to 50mg tab, total 75mg daily, # 30 tablet, 6 Refills, Maintenance, 07/25/21 8:35:00 EDT, [facility]/pharmacy #[id number], 157.48, cm, 07/01/21 11:10:00 EDT, Height, 111, kg, 06/10/21 15:06:00 EDT, Dry Weight Start Date: 07/25/21 Status: Ordered morphine 15 mg/8 to 12 hr oral tablet, extended release 1 tablet = 15 mg, By Mouth, Every 8 hours, PRN Pain , Moderate, On substance agreement evaluated every 3 to 6 months, # 84 tablet, 0 Refills, Maintenance, 08/19/21 14:03:00 EDT, [facility]/pharmacy #[id number], parital fill upon patient request, 157.48, cm, 052... Start Date: 08/19/21 Stop Date: 09/16/21 Status: [...] 5 Refills, Maintenance, 06/09/21 15:31:00 EDT, Tablet, [facility]/pharmacy #2339, Partial fill upon patient [...] 0 Refills, Maintenance, 06/12/21 9:27:00 EDT, Tablet, [facility], Partial fill upon patient request if the prescription is for a... Start Date: 06/12/21 Status: Ordered Problem List Condition Effective Dates Status Health Status Inform ant Asthma(Confirmed) Active Atrial fibrillation(Confirmed) Active Back pain(Confirmed) 1 Active Major depression, chronic(Confirmed) Active CHF (congestive heart failur e) (HTIP63-94% on 2019)(Confirmed) Active Continuous opioid dependence(Confirmed) Active [...] Clinical Service Informant Atrial fibrillation Discharge Diagnosis 08/12/21 Coronary artery disease Discharge Diagnosis 08/12/21 Hyperlipidemia Discharge Diagnosis 08/12/21 Hypertension Discharge Diagnosis 08/12/21 Obesity (BMI 30-39.9) Discharge Diagnosis 08/12/21 CHF (congestive heart failure) (SNVT93-29% on 2019) Discharge Diagnosis 08/12/21 Vital Signs Most recent to oldest [Reference Range]: 1 Height 157.48 cm (08/12/21 10:44 AM) Weight 118.4 kg (08/12/21 10:44 AM) Oxygen Saturation [94-100 %] 97 % (08/12/21 10:44 AM) Pulse Rate [55-90 bpm] 72 bpm (08/12/21 10:44 AM) Body Mass Index [18.5-24.99] 47.74 *>HHI* (08/12/21 10:44 AM) Blood Pressure [90-138/55-84 mm Hg] 116/ 67mm Hg (08/12/21 10:44 AM) Blood pressure sites Arm, left (08/12/21 10:44 AM) Social History Social History Type Response Smoking Status 5-9 cigarettes (betw een 1/4 to 1/2 pack)/day in last 30 days; Other: Started at 23 years old; entered on: 01/18/20 Sex
--- OUTSIDE RECORDS SUMMARY | 2023-08-02 08:35 | XMS_ITS | Continuity of Care Document ---
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 Refills 11, Maintenance, 07/31/19 14:19:00 EDT, Route to Pharmacy Electronically, [facility]/pharmacy #[id number], 157, cm, 07/31/19 13:53:00 EDT, Height, 1... Start Date: 07/31/19 Status: Ordered Ativan 0.5 mg oral tablet 1 tablet = 0.5 mg, By Mouth, 3 times a day, PRN anxiety, # 90 tablet, 2 Refills, Maintenance, 05/20/20 14:21:00 EST, Tablet, [facility]/pharmacy #2339, 162.5, cm, 05/15/20 10:27:00 EST, Height, 103, kg, 04/10/20 11:20:00 EST, Dry Weight Start Date: 05/20/20 Status: Ordered atorvastatin 40 mg oral tablet 1 tablet = 40 mg, By Mouth, Daily, # 90 tablet, 1 Refills, Maintenance, 11/16/19 10:37:00 EDT, Tablet, [facility]/pharmacy #2339, 156.6, cm, 10/23/19 15:34:00 EDT, Height, Dry Weight Start Date: 11/16/19 Status: Ordered citalopram 40 mg oral tablet 1 tablet, By Mouth, Daily, # 90 tablet, 1 Refills, Maintenance, 04/04/20 11:03:00 EST, [facility]/pharmacy#2339, 162.5, cm, 04/03/20 11:38:00 EST, Height, [...] 0 Refills, Maintenance, 04/30/20 17:05:00 EST, Tablet, [facility]/pharmacy #2339, parital fill upon patient request, 162.5, cm, 04/10/20 1... Start Date: 04/30/20 Status: Ordered Dulera 100 mcg-5 mcg/inh inhalation aerosol 2 puffs, Inhalation, 2 times a day, # 1 each, 11 Refills, Maintenance, 07/31/19 14:15:00 EDT, Aerosol, [facility]/pharmacy #2339, 2 puffs Inhalation 2 times a day, 157, cm, 07/31/19 13:53:00 EDT, Height, 104, kg, 08/03/17 12:54:00 EDT, Dry Weight Start Date: 07/31/19 Status: Ordered ferrous sulfate 325 mg oral enteric coated tablet 325 mg, By Mouth, 2 times a day, # 60 tablet, Refills 5, Tot. Refills 5, Maintenance, 04/17/20 10:12:00 EST, Route to Pharmacy Electronically, [facility]/pharmacy #2339, 162.5, cm, 04/10/20 11:20:00 EST, Height, 103, kg, 04/10/20 11:20:00 EST, Dry Weight Start Date: 04/17/20 Status: Ordered Lasix 40 mg oral tablet 40 mg, 1, tablet, By Mouth, Daily, # 30 tablet, Refills 5, Tot. Refills 5, Maintenance, 03/11/20 13:11:00 EST, Route to Pharmacy Electronically, [facility]/pharmacy #2339, 160, cm, 02/28/20 10:28:00 EST, Height, 104, kg, 01/19/20 3:57:00 EDT, Dry Weight Start Date: 03/11/20 Status: Ordered lisinopril 10 mg oral tablet 10 mg, 1, tablet, By Mouth, Daily, # 90 tablet, Refills 1, Tot. Refills 1, Maintenance, 05/20/20 8:39:00 EST, Route to Pharmacy Electronically, [facility]/pharmacy #2339, 162.5, cm, 05/15/20 10:27:00 EST, [...] tablet, 0 Refills, Maintenance, 04/30/20 17:05:00 EST, [facility]/pharmacy #2339, parital fill upon patient request, 162.5, cm, 04/10... Start Date: 04/30/20 Stop Date: 05/30/20 Status: Ordered morphine 30 mg/8 to 12 hr oral tablet, extended release 1 tablet = 30 mg, By Mouth, 3 times a day, OPIATE AGREEMENT evaluated every 3 to 6 months, # 84 tablet, 0 Refills, Maintenance, 04/30/20 17:05:00 EST, [facility]/pharmacy #2339, may fill for less, 162.5, cm, 04/10/20 11:20:00 EST, Height, 103, kg, 04/10/20... Start Date: 04/30/20 Stop Date: 05/28/20 Status: Ordered Multivitamin Daily, 0 Refills, Maintenance, 05/25/16 13:36:30 Start Date: 05/25/16 Status: Ordered Nicoderm C-Q 21 mg/24 hr transdermal film, extended release 1 patch, Topically, Daily, # 30 patch, 3 Refills, Maintenance, 08/25/19 16:23:00 EDT, Patch, [facility]/pharmacy #2339, 157, cm, 08/25/19 15:55:00 EDT, Height Start Date: 08/25/19 Status: Ordered [facility] use with inhaler [facility] use with inhaler, See Instructions, # [...] 01/22/20 9:08:00 EST, Route to Pharmacy Electronically, [facility]/pharmacy #2339, 160, cm, 01/22/20 7:53:00 EST, Height, 104, kg, 01/19/20 3:57:00 EDT, Dry Weight Start Date: 01/22/20 Stop Date: 07/20/20 Status: Ordered Ventolin HFA 108 mcg/inh inhalation aerosol with adapter 2 puffs, Inhalation, 4 times a day, PRN for wheezing, # 8 Gm, 5 Refills, Maintenance, 12/20/19 11:27:00 EDT, Aerosol, [facility]/pharmacy #2339, 156.6, cm, 10/23/19 15:34:00 EDT, Height Start Date: 12/20/19 Status: Ordered warfarin 5 mg oral tablet 0.5 tablet = 2.5 mg, By Mouth, Daily at bedtime, 5mg tablet on Fridays, # 30 tablet, 5 Refills, Maintenance, 02/26/20 12:12:00 EST, Tablet, [facility]/pharmacy #2339, 160, cm, 01/26/20 9:40:00 EST, [...] Clinical Service Informant Atrial fibrillation Discharge Diagnosis 05/15/20 Vital Signs Most recent to oldest [Reference Range]: 1 Height 162.5 cm (05/15/20 10:27 AM) Social History Social History Type Response Smoking Status 5-9 cigarettes (betw een 1/4 to 1/2 pack)/day in last 30 days; Other: Started at 23 years old; entered on: 01/18/20 Sex
--- OUTSIDE RECORDS SUMMARY | 2023-08-02 08:35 | XMS_ITS | Continuity of Care Document ---
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 Start Date: 10/13/21 Status: Ordered amLODIPine 10 mg oral tablet 1 tablet, By Mouth, Daily, # 90 tablet, 3 Refills, Maintenance, 02/23/22 8:50:00 EST, [facility], 157.48, cm, 01/20/22 14:40:00 EDT, Height, 111, kg, 06/10/21 15:06:00 EDT, Dry Weight Start Date: 02/23/22 Status: Ordered ARIPiprazole 5 mg oral tablet 1, tablet, By Mouth, Daily, X90 DAYS,INSTR:TO BE COMBINED WITH THE CITALOPRAM THERAPY, # 90 tablet,Refills 1, Maintenance, 07/26/22 7:25:00 EDT, Route to Pharmacy Electronically, [facility], 157.48, cm, 05/18/22 9:48:00 EST, Height, 111, [...] Refills, Maintenance, 12/04/22 15:42:00 EDT, Tablet, [facility]/pharmacy #2339, Partial fill upon patient request if the prescription is for a schedule II opioid drug.,... Start Date: 12/04/22 Status: Ordered atorvastatin 80 mg oral tablet 1 tablet, By Mouth, Daily at bedtime, # 90 tablet, 1 Refills, Maintenance, 10/12/22 12:22:00 EDT, [facility], 157.48, cm, 08/28/22 9:39:00 EDT, Height, 111, kg, 06/10/21 15:06:00 EDT, Dry Weight Start Date: 10/12/22 Status: Ordered citalopram 40 mg oral tablet 1 tablet, By Mouth, Daily, # 90 tablet, 1 Refills, Maintenance, 11/25/22 22:48:00 EDT, [facility], 157.48, cm, 11/17/22 16:49:00 EDT, Height, 111, [...] # 90 tablet, 1 Refills, [facility], 90, TAKE 1 TABLET BY MOUTH EVERY [...] Refills, Maintenance, 07/08/22 11:55:00 EDT, [facility], 30, INHALE 2 PUFFS TWICE A DAY, 157.48, cm, 05/18/22 9:48:00 EST, Height, 111, kg, 06/10/21 15:06:00 EDT, Dry Weight Start Date: 07/08/22 Status: Ordered Entresto 24 mg-26 mg oral tablet 1 tablet, By Mouth, 2 times a day, # 60 tablet, 11 Refills, Maintenance, 09/21/22 14:36:00 EDT, [facility], 30, TAKE 1 TABLET BY MOUTH TWICE A DAY, 157.48, cm, 08/28/22 9:39:00 EDT, Height, 111,kg, 06/10/21 15:06:00 EDT, Dry Weight Start Date: 09/21/22 Status: Ordered Entresto 24 mg-26 mg oral tablet 1 tablet, By Mouth, 2 times a day, # 60 tablet, 11 Refills, [facility], 30, TAKE 1 TABLET BY MOUTH TWICE A DAY, 157.48, cm, 08/12/21 10:44:00 EDT, Height, 111, kg, 06/10/21 15:06:00 EDT, Dry Weight Start Date: 09/18/21 Status: Ordered ferrous sulfate 325 mg oral enteric coated tablet 1, tablet, By Mouth, 2 times a day, # 180 tablet, Refills 1, Maintenance, 07/26/22 7:26:00 EDT, Route to Pharmacy Electronically, [facility], 157.48, cm, 05/18/22 9:48:00 EST, Height, 111, kg, 06/10/21 15:06:00 EDT, Dry Weight Start Date: 07/26/22 Status: Ordered furosemide 20 mg oral tablet 1, tablet, By Mouth, Daily, # 90 tablet, Refills 1, Maintenance, 07/02/22 8:00:00 EDT, Route to Pharmacy Electronically, [facility], 157.48, cm, 05/18/22 9:48:00 EST, Height, 111, kg, 06/10/21 15:06:00 EDT, Dry Weight Start Date: 07/02/22 Status: Ordered furosemide 20 mg oral tablet 1, tablet, By Mouth, Daily, # 30 tablet, Refills 5, Maintenance, 12/30/21 15:04:00 EDT, Route to Pharmacy Electronically, [facility], 157.48, cm, 11/04/21 11:33:00 EDT, Height, 111, kg, 06/10/2214:06:00 EDT, Dry Weight Start Date: 12/30/21 Status: Ordered Metoprolol Succinate ER 100 mg oral tablet, extended release 1.5 tablet = 150 mg, By Mouth, Daily, # 135 tablet, 3 Refills, Maintenance, 10/12/22 15:26:00 EDT, XL Tablet, [facility]/pharmacy #2339, Partial fill upon patient request [...] tablet, 0 Refills, Maintenance, 11/25/22 22:49:00 EDT, [facility], 157.48, cm, 11/17/22 16:49:00 EDT, Height, 111, kg, 0... Start Date: 11/25/22 Status: Ordered spironolactone 25 mg oral tablet 0.5, tablet, By Mouth, Daily, # 45 tablet, Refills 1, Maintenance, 05/21/22 10:15:00 EST, Route to Pharmacy Electronically, [facility], 157.48, cm, 05/18/22 9:48:00 EST, Height, 111, kg, 06/10/21 15:06:00 EDT, Dry Weight Start Date: 05/21/22 Status: Ordered warfarin 5 mg oral tablet See Instructions, Take 1/2 to 1 tablet By Mouth Daily as directed by coumadin clinic, # 90 tablet, 2 Refills, Maintenance, 05/12/22 13:52:00 EST, Tablet, [facility], Partial fill upon patientrequest if the prescription is for a schedule II... Start Date: 05/12/22 Status: Ordered Problem List Condition Confirmation Course Effective Dates Status H ealth Status Informant Asthma Confirmed Active Atrial fibrillation Confirmed Active Back pain 1 Confirmed Active Cardiomyopathy Confirmed Active Major depression, chronic Confirmed Active CHF (congestive heart failure) (BAJC28-98% on echo 2019) Confirmed Active Coronary artery [...] June 2021; entered on: 05/18/22 Sex Female Radiology * Event Display: X-Ray Upper Extremity, Non- BH Authored Date: [id number] Patient Care team information Care Team Personnel Name: Radha Villela Position: [facility] RN Supv Member Role: Primary Care Nurse Name: Nichole oCates RN Position: [facility] SN RN Member Role: Primary Care Nurse Name: Ksenia Herzog RN Position: [facility] RN Member Role: Primary Care Nurse Name: Leatha Walsh RN Position: [facility] SN RN Member Role: Primary Care Nurse Name: Milagro Sims RN Position: [facility] RN Member Role: Primary Care Nurse Name: Jo Ann Stubbs PharmD Position: [facility] Associate Professional Member Role: Lifetime Consulting Provider Address: Address: [address] [place] [address] [facility] [address] Name: Anne Gonzalez RN Position: [facility] RN Member Role: Primary Care Nurse Name: Mckayla Wilcox RN Position: [facility] SN RN Member Role: Primary Care Nurse Name: Simin Chen RN Position: [facility] RN Member Role: Primary Care Nurse Name: Jose Martinez MD Position: [facility] Physician - Primary Care Member Role: PCP Address: Address: [address] [place] [id number]- Name: Aleks Merchant RN Position: [facility] RN Member Role: Primary Care Nurse Name: Genet Bowman RN Position: [facility] SN RN Member Role: Primary Care Nurse Name: Ilana Burns RN Position: [facility] RN Member Role: Primary Care Nurse Care Team Related Persons Name: TUTU ROWLAND Address: home [address] [place] [id number] Name: JANET CONNOR Address: home [address] [place] [address]
--- OUTSIDE RECORDS SUMMARY | 2023-08-02 08:35 | XMS_ITS | Continuity of Care Document ---
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 Refills 0, Maintenance, 08/04/17 9:05:52 EDT, Route to Pharmacy Electronically, [id number], [facility] 3 Start Date: 08/04/17 Status: Ordered Ativan [...] Refills, Maintenance, 10/03/19 13:25:00 EDT, [facility], 157, cm, 08/25/19 15:55:00 EDT, Height Start [...] Start Date: 08/25/19 Status: Ordered [facility] use with inhaler [facility] use with inhaler, See Instructions, [...] 14:55:12 EDT, Aerosol, Route to Pharmacy Electronically, [id number], [facility]/pharmacy #2339 Start Date: 10/28/18 Status: Ordered [...]
--- OUTSIDE RECORDS SUMMARY | 2023-08-02 08:35 | XMS_ITS | Continuity of Care Document ---
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 4Admin Note: [employer] 5Admin Note: [employer],[place] 6Admin Note: Novaritis Medications Abilify 5 mg oral tablet 5 mg, 1, tablet, By Mouth, Daily, to be combined with the citalopram therapy, # 30 tablet, Refills 11, Tot. Refills 11, Maintenance, 07/31/19 14:19:00 EDT, [facility], cm, 07/31/19 13:53:00 EDT, Height, 1... Start Date: 07/31/19 Status: Ordered Ativan 0.5 mg oral tablet 1 tablet = 0.5 mg, By Mouth, 3 times a day, PRN anxiety, # 90 tablet, 2 Refills, Maintenance, 05/20/20 14:21:00 EST, [facility]t, [facility], 162.5, cm, 05/15/20 10:27:00 EST, Height, 103, kg, 04/10/20 11:20:00 EST, Dry Weight Start Date: 05/20/20 Status: Ordered atorvastatin 40 mg oral tablet 1 tablet = 40 mg, By Mouth, Daily, # 90 tablet, 1 Refills, Maintenance, 11/16/19 10:37:00 EDT, [facility]t, [facility], 156.6, cm, 10/23/19 15:34:00 EDT, Height, Dry Weight Start Date: 11/16/19 Status: Ordered citalopram 40 mg oral tablet 1 tablet, By Mouth, Daily, # 90 tablet, 1 Refills, Maintenance, 04/04/20 11:03:00 EST, [facility], 162.5, cm, 04/03/20 11:38:00 EST, [...] 0 Refills, Maintenance, 04/30/20 17:05:00 EST, Tablet, [facility]/pharmacy #2339, parital fill upon patient request, 162.5, cm, 04/10/20 1... Start Date: 04/30/20 Status: Ordered Dulera 100 mcg-5 mcg/inh inhalation aerosol 2 puffs, Inhalation, 2 times a day, # 1 each, 11 Refills, Maintenance, 07/31/19 14:15:00 EDT, Aerosol, [facility]/pharmacy #2339, 2 puffs Inhalation 2 times a day, 157, cm, 07/31/19 13:53:00 EDT, Height, 104, kg, 08/03/17 12:54:00 EDT, Dry Weight Start Date: 07/31/19 Status: Ordered ferrous sulfate 325 mg oral enteric coated tablet 325 mg, By Mouth, 2 times a day, # 60 tablet, Refills 5, Tot. Refills 5, Maintenance, 04/17/20 10:12:00 EST, Route to Pharmacy Electronically, [facility]/pharmacy #2339, 162.5, cm, 04/10/20 11:20:00 EST, Height, 103, kg, 04/10/20 11:20:00 EST, Dry Weight Start Date: 04/17/20 Status: Ordered Lasix 40 mg oral tablet 40 mg, 1, tablet, By Mouth, Daily, # 30 tablet, Refills 5, Tot. Refills 5, Maintenance, 03/11/20 13:11:00 EST, Route to Pharmacy Electronically, [facility]/pharmacy #2339, 160, cm, 02/28/20 10:28:00 EST, Height, 104, kg, 01/19/20 3:57:00 EDT, Dry Weight Start Date: 03/11/20 Status: Ordered lisinopril 10 mg oral tablet 10 mg, 1, tablet, By Mouth, Daily, # 90 tablet, Refills 1, Tot. Refills 1, Maintenance, 05/20/20 8:39:00 EST, Route to Pharmacy Electronically, [facility]/pharmacy #2339, 162.5, cm, [...] tablet, 0 Refills, Maintenance, 04/30/20 17:05:00 EST, [facility]/pharmacy #2339, parital fill upon patient request, 162.5, cm, 04/10... Start Date: 04/30/20 Stop Date: 05/30/20 Status: Ordered morphine 30 mg/8 to 12 hr oral tablet, extended release 1 tablet = 30 mg, By Mouth, 3 times a day, OPIATE AGREEMENT evaluated every 3 to 6 months, # 84 tablet, 0 Refills, Maintenance, 04/30/20 17:05:00 EST, [facility]/pharmacy #2339, may fill [...] Start Date: 08/25/19 Status: Ordered [facility] use with inhaler [facility] use with inhaler, [...] 01/22/20 9:08:00 EST, Route to Pharmacy Electronically, [facility]/pharmacy #2339, 160, cm, 01/22/20 7:53:00 EST, Height, 104, kg, 01/19/20 3:57:00 EDT, Dry Weight Start Date: 01/22/20 Stop Date: 07/20/20 Status: Ordered Ventolin HFA 108 mcg/inh inhalation aerosol with adapter 2 puffs, Inhalation, 4 times a day, PRN for wheezing, # 8 Gm, 5 Refills, Maintenance, 12/20/19 11:27:00 EDT, Aerosol, [facility]/pharmacy #2339, 156.6, cm, 10/23/19 15:34:00 EDT, Height Start Date: 12/20/19 Status: Ordered warfarin 5 mg oral tablet 0.5 tablet = 2.5 mg, By Mouth, Daily at bedtime, 5mg tablet on Fridays, # 30 tablet, 5 Refills, Maintenance, 02/26/20 12:12:00 EST, Tablet, [facility]/pharmacy #2339, 160, cm, 01/26/20 9:40:00 EST, Height, [...]
--- OUTSIDE RECORDS SUMMARY | 2023-08-02 08:35 | XMS_ITS | Continuity of Care Document ---
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 Refills 0, Maintenance, 07/20/20 19:50:00 EDT, Route to Pharmacy Electronically, [facility]/pharmacy #2339, 162.5, cm, 05/15/20 10:27:00 EST, Height, 1... Start Date: 07/20/20 Status: Ordered Ativan 0.5 mg oral tablet 1 tablet = 0.5 mg, By Mouth, 3 times a day, PRN anxiety, # 90 tablet, 2 Refills, Maintenance, 10/14/20 13:39:00 EDT, Tablet, [facility]/pharmacy #2339, 162.5, cm, 05/15/20 10:27:00 EST, Height, 103, kg, 04/10/20 11:20:00 EST, Dry Weight Start Date: 10/14/20 Status: Ordered atorvastatin 40 mg oral tablet 1 tablet = 40 mg, By Mouth, Daily, # 90 tablet, 1 Refills, Maintenance, 11/16/19 10:37:00 EDT, Tablet, [facility]/pharmacy #2339, 156.6, cm, 10/23/19 15:34:00 EDT, Height, Dry Weight Start Date: 11/16/19 Status: Ordered citalopram 40 mg oral tablet 1 tablet, By Mouth, Daily, # 90 tablet, 1 Refills, Maintenance, 10/28/20 14:21:00 EDT, [facility]/pharmacy#2339, 162.5, cm, 05/15/20 10:27:00 EST, Height, 103, [...] months, # 28 tablet, 0 Refills, Maintenance, 12/09/20 13:25:00 EDT, Tablet, [facility]/pharmacy #2339, parital fill upon patient request, 162.5, cm, 05/15/20 1... Start Date: 12/09/20 Status: Ordered Dulera 100 mcg-5 mcg/inh inhalation aerosol 2 puffs, Inhalation, 2 times a day, # 13 Unknown, 11 Refills, Maintenance, 07/22/20 7:52:00 EDT, [facility], 30, INHALE 2 PUFFS TWICE A DAY, 162.5, cm, 05/15/20 10:27:00 EST, Height, 103, kg, 04/10/20 11:20:00 EST, Dry Weight Start Date: 07/22/20 Status: Ordered ferrous sulfate 325 mg oral enteric coated tablet 1, tablet, By Mouth, 2 times a day, # 180 tablet, Refills 1, Tot. Refills 0, Maintenance, 10/17/20 7:27:00 EDT, Route to Pharmacy Electronically, [facility]80, 162.5, cm, 05/15/20 10:27:00 EST, Height, 103, kg, 04/10/20 11:20:00 EST, Dry Weight Start Date: 10/17/20 Status: Ordered lisinopril 10 mg oral tablet 1, tablet, By Mouth, Daily, # 90 tablet, Refills 3, Route to Pharmacy Electronically, [facility], 162.5, cm, 05/15/20 10:27:00 EST, Height, 103, kg, 04/10/20 11:20:00 EST, Dry Weight Start Date: 11/13/20 Status: Ordered Metoprolol Succinate ER 25 mg oral tablet, extended release 1 tablet, By Mouth, Daily, # 90 tablet, 1 Refills, Maintenance, 07/22/20 7:32:00 EDT, [facility] 05398, 162.5, cm, 05/15/20 10:27:00 EST, Height, 103, kg, 04/10/20 11:20:00 EST, Dry Weight Start Date: 07/22/20 Status: Ordered morphine 15 mg/8 to 12 hr oral tablet, extended release 1 tablet = 15 mg, By Mouth, Every 8 hours, PRN Pain , Moderate, On substance agreement evaluated every 3 to 6 months, # 90 tablet, 0 Refills, Maintenance, 12/09/20 13:25:00 EDT, [facility]/pharmacy #2339, parital fill upon patient request, 162.5, cm, 05/15... Start Date: 12/09/20 Stop Date: 01/08/21 Status: Ordered morphine 30 mg/8 to 12 hr oral tablet, extended release 1 tablet = 30 mg, By Mouth, 3 times a day, OPIATE AGREEMENT evaluated every 3 to 6 months, # 84 tablet, 0 Refills, Maintenance, 12/09/20 13:25:00 EDT, [facility]/pharmacy #2339, may fill for less, 162.5, cm, 05/15/20 10:27:00 EST, Height, 103, kg, 04/10/20... Start Date: 12/09/20 Stop Date: 01/06/21 Status: Ordered Multivitamin Daily, 0 Refills, Maintenance, 05/25/16 13:36:30 Start Date: 05/25/16 Status: Ordered Nicoderm C-Q 21 mg/24 hr transdermal film, extended release 1 patch, Topically, Daily, # 30 patch, 3 Refills, Maintenance, 08/25/19 16:23:00 EDT, Patch, [facility]/pharmacy #2339, 157, cm, 08/25/19 15:55:00 EDT, Height Start Date: 08/25/19 Status: Ordered [facility] use with inhaler [facility] use with [...] tablet, 3 Refills, Maintenance, 10/17/20 12:35:00 EDT, [facility] 96[facility], 162.5, cm, 05/15/20 10:27:00 EST, Height, 103, [...] tablet, 1 Refills, Maintenance, 09/02/20 8:48:00 EDT, [facility] 38[facility], 162.5, cm, 05/15/20 10:27:00 EST, Height, 103, kg, 04/10/20 11:20:00 EST, Dry Weight Start Date: 09/02/20 Status: Ordered Problem List Condition Effective Dates Status Health Status Inform ant Asthma(Confirmed) Active Atrial fibrillation(Confirmed) Active Back pain(Confirmed) 1 Active Major depression, chronic(Confirmed) Active CHF (congestive heart failur e) (JMXP04-00% on 2019)(Confirmed) Active Continuous opioid dependence(Confirmed) Active [...] Clinical Service Informant Atrial fibrillation Discharge Diagnosis 12/27/20 Vital Signs Most recent to oldest [Reference Range]: 1 Height 162.5 cm (12/27/20 2:39 PM) Weight 113.1 kg (12/27/20 2:39 PM) Oxygen Saturation [94-100 %] 97 % (12/27/20 2:39 PM) Pulse Rate [55-90 bpm] 67 bpm (12/27/20 2:39 PM) Body Mass Index [18.5-24.99] 42.83 *>HHI* (12/27/20 2:39 PM) Blood Pressure [90-138/55-84 mm Hg] 112/ 66mm Hg (12/27/20 2:39 PM) Blood pressure sites Arm, left (12/27/20 2:39 PM) Social History Social History Type Response Smoking Status 5-9 cigarettes (betw een 1/4 to 1/2 pack)/day in last 30 days; Other: Started at 23 years old; entered on: 01/18/20 Sex
--- OUTSIDE RECORDS SUMMARY | 2023-08-02 08:36 | XMS_ITS | Continuity of Care Document ---
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 5Admin Note: [employer] [facility] 6Admin Note: [employer],[place] 7Admin Note: Novaritis Medications Albuterol (Eqv-ProAir HFA) [...] 08/06/21 9:00:00 EDT, Route to Pharmacy Electronically, [facility]/pharmacy #2339, 157.48, cm, 0... Start Date: 08/06/21 Stop Date: 08/01/22 Status: Ordered aspirin 81 mg oral delayed release tablet 81 mg, By Mouth, Daily, # 30 tablet, Refills 11, Tot. Refills 11, Maintenance, 06/12/21 9:27:00 EDT, Route to Pharmacy Electronically, [facility], Partial fill upon patient request if the prescription is for a schedule II opioid drug., 1... Start Date: 06/12/21 Stop Date: 06/07/22 Status: Ordered Ativan 0.5 mg oral tablet 1 tablet = 0.5 mg, By Mouth, Daily at bedtime, PRN as needed for anxiety, # 30 tablet, 1 Refills, Maintenance, 11/25/21 15:15:00 EDT, Tablet, [facility]/pharmacy #2339, Partial fill upon patient request if the prescription is for a schedule II opioid drug.,... Start Date: 11/25/21 Status: Ordered citalopram 40 mg oral tablet 1 tablet, By Mouth, Daily, for 90 days, # 90 tablet, 3 Refills, Physician Stop 08/01/22 9:01:00 EDT, 08/06/21 9:01:00 EDT, [facility]/pharmacy #2339, 157.48, cm, 08/05/21 14:31:00 [...] EVERY DAY, # 90 tablet, 1 Refills, [facility] 00038, 90, TAKE 1 TABLET BY MOUTH EVERY DAY, 157.48, cm, 08/12/21 10:44:00 EDT, Height, 111, kg, 06/10/21 15:06:00 EDT, Dry Weight Start Date: 10/31/21 Status: Ordered Dulera 100 mcg-5 mcg/inh inhalation aerosol 2 puffs, Inhalation, 2 times a day, # 1 each, 11 Refills, 06/02/21 14:01:00 EDT, [facility]/pharmacy #2339, 2 puffs Inhalation 2 times a day, 160, cm, 06/02/21 13:26:00 EDT, Height, 103, kg, 04/10/20 11:20:00 EST, Dry Weight Start Date: 06/02/21 Status: Ordered Entresto 24 mg-26 mg oral tablet 1 tablet, By Mouth, 2 times a day, # 60 tablet, 11 Refills, [facility] 09286, 30, TAKE 1 TABLET BY MOUTH TWICE [...] 08/06/21 9:01:00 EDT, [facility] 157.48, cm, 08/05/21 14:31:00 EDT, Height, 111,... Start Date: 08/06/21 Stop Date: 08/01/22 Status: Ordered furosemide 20 mg oral tablet 1, tablet, By Mouth, Daily, # 30 tablet, Refills 1, Maintenance, 12/02/21 12:39:00 EDT, Route to Pharmacy Electronically, [facility] 64252, 157.48, cm, 11/04/21 11:33:00 EDT, Height, 111, kg, 06/10/2214:06:00 EDT, Dry Weight Start Date: 12/02/21 Status: Ordered Lipitor 80 mg oral tablet 1 tablet = 80 mg, By Mouth, Daily at bedtime, # 30 tablet, 11 Refills, Maintenance, 06/12/21 9:27:00 EDT, Tablet, [facility], Partial fill upon patient request if the prescription is for a schedule II opioid drug., 157.48, cm, 06/10/21 1... Start Date: 06/12/21 Status: Ordered metoprolol 100 mg oral tablet, extended release 100 mg, 1, tablet, By Mouth, Daily, # 90 tablet, Refills 3, Tot. Refills 3, Maintenance, 09/11/21 12:08:00 EDT, Route to Pharmacy Electronically, [facility]/pharmacy #2339, 157.48, cm, 08/12/21 10:44:00 [...] tablet, 0 Refills, Maintenance, 08/19/21 14:03:00 EDT, [facility]/pharmacy #2339, parital fill upon patient request, 157.48, cm, 07/21... Start Date: 08/19/21 Stop Date: 09/16/21 Status: Ordered morphine 15 mg/8 to 12 hr oral tablet, extended release 1 tablet = 15 mg, By Mouth, Every 8 hours, PRN Pain , Moderate, On substance agreement evaluated every 3 to 6 months, # 84 tablet, 0 Refills, Maintenance, 11/25/21 15:15:00 EDT, [facility]/pharmacy #2339, parital fill upon patient [...] tablet, 1 Refills, Maintenance, 11/25/21 12:04:00 EDT, [facility] 74545, 157.48, cm, 11/04/21 11:33:00 EDT, Height, 111, kg, 03... Start Date: 11/25/21 Status: Ordered warfarin 5 mg oral tablet 0.5 tablet = 2.5 mg, By Mouth, Daily, Goal INR 2-3 Please follow up with your coumadin clinic, # 15tablet, 0 Refills, Maintenance, 06/12/21 9:27:00 EDT, Tablet, [facility], Partial fill upon patient request if the prescription is for a... Start Date: 06/12/21 Status: Ordered Problem List Condition Effective Dates Status Health Status Inform ant Asthma(Confirmed) Active Atrial fibrillation(Confirmed) Active Back pain(Confirmed) 1 Active Major depression, chronic(Confirmed) Active CHF (congestive heart failur e) ([id number]% on echo 2019)(Confirmed) Active Continuous opioid dependence(Confirmed) [...] 23 years old; entered on: 01/18/20 Sex Care Team Personnel Name: Jose Martinez MD Address: [address] [place] [address]-
--- OUTSIDE RECORDS SUMMARY | 2023-08-02 08:36 | XMS_ITS | Continuity of Care Document ---
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 5Admin Note: [email or web address] [facility] 6Admin Note: [employer],[place] 7Admin Note: Novaritis Medications ARIPiprazole 5 mg oral tablet 1, tablet, By Mouth, Daily, TO BE COMBINED WITH THE CITALOPRAM THERAPY, # 90 tablet, Refills 1, Route to Pharmacy Electronically, [facility] 17483, 162.5, cm, 12/27/20 14:39:00 EDT, Height, 103, kg, 04/10/20 11:20:00 EST, Dry Weight Start Date: 01/16/21 Status: Ordered Ativan 0.5 mg oral tablet 1 tablet = 0.5 mg, By Mouth, 3 times a day, PRN anxiety, # 90 tablet, 2 Refills, Maintenance, 02/24/21 14:29:00 EST, Tablet, [facility]/pharmacy #2339, 162.5, cm, 01/29/21 12:38:00 EST, Height, 103, kg, 04/10/20 11:20:00 EST, Dry Weight Start Date: 02/24/21 Status: Ordered atorvastatin 40 mg oral tablet 1 tablet = 40 mg, By Mouth, Daily, # 90 tablet, 1 Refills, Maintenance, 11/16/19 10:37:00 EDT, Tablet, [facility]/pharmacy #2339, 156.6, cm, 10/23/19 15:34:00 EDT, Height, Dry Weight Start Date: 11/16/19 Status: Ordered citalopram 40 mg oral tablet 1 tablet, By Mouth, Daily, # 90 tablet, 1 Refills, Maintenance, 10/28/20 14:21:00 EDT, [facility]/pharmacy#2339, 162.5, cm, 05/15/20 10:27:00 EST, Height, 103, [...] 0 Refills, Maintenance, 04/02/21 12:29:00 EST, Tablet, [facility]/pharmacy #2339, parital fill upon patient request, 162.5, cm, 01/29/21 1... Start Date: 04/02/21 Status: Ordered Dulera 100 mcg-5 mcg/inh inhalation aerosol 2 puffs, Inhalation, 2 times a day, # 13 Unknown, 11 Refills, Maintenance, 07/22/20 7:52:00 EDT, [facility] [address], 30, INHALE 2 PUFFS TWICE A DAY, 162.5, cm, 05/15/20 10:27:00 EST, Height, 103, kg, 04/10/20 11:20:00 EST, Dry Weight Start Date: 07/22/20 Status: Ordered ferrous sulfate 325 mg oral enteric coated tablet 1, tablet, By Mouth, 2 times a day, # 180 tablet, Refills 1, Tot. Refills 0, Maintenance, 10/17/20 7:27:00 EDT, Route to Pharmacy Electronically, [facility] 28317, 162.5, cm, 05/15/20 10:27:00 EST, Height, 103, kg, 04/10/20 11:20:00 EST, Dry Weight Start Date: 10/17/20 Status: Ordered lisinopril 10 mg oral tablet 1, tablet, By Mouth, Daily, # 90 tablet, Refills 3, Route to Pharmacy Electronically, [facility] 61245, 162.5, cm, 05/15/20 10:27:00 EST, Height, 103, kg, 04/10/20 11:20:00 EST, Dry Weight Start Date: 11/13/20 Status: Ordered Metoprolol Succinate ER 25 mg oral tablet, extended release 1 tablet, By Mouth, Daily, # 90 tablet, 1 Refills, Maintenance, 04/02/21 9:43:00 EST, [facility]/pharmacy #2339, 162.5, cm, 01/29/21 12:38:00 EST, Height, 103, kg, 04/10/20 11:20:00 EST, Dry Weight Start Date: 04/02/21 Status: Ordered morphine 15 mg/8 to 12 hr oral tablet, extended release 1 tablet = 15 mg, By Mouth, Every 8 hours, PRN Pain , Moderate, On substance agreement evaluated every 3 to 6 months, # 90 tablet, 0 Refills, Maintenance, 04/02/21 12:29:00 EST, [facility]/pharmacy #2339, parital fill upon patient request, 162.5, cm, 01/29... Start Date: 04/02/21 Stop Date: 05/02/21 Status: Ordered morphine 30 mg/8 to 12 hr oral tablet, extended release 1 tablet = 30 mg, By Mouth, 3 times a day, OPIATE AGREEMENT evaluated every 3 to 6 months, # 84 tablet, 0 Refills, Maintenance, 04/02/21 12:29:00 EST, [facility]/pharmacy #2339, may fill for less, 162.5, cm, 01/29/21 12:38:00 EST, Height, 103, kg, 04/10/20... Start Date: 04/02/21 Stop Date: 04/30/21 Status: Ordered Multivitamin Daily, 0 Refills, Maintenance, 05/25/16 13:36:30 Start Date: 05/25/16 Status: Ordered Nicoderm C-Q 21 mg/24 hr transdermal film, extended release 1 patch, Topically, Daily, # 30 patch, 3 Refills, Maintenance, 08/25/19 16:23:00 EDT, Patch, [facility]/pharmacy #2339, 157, cm, 08/25/19 15:55:00 EDT, Height Start Date: 08/25/19 Status: Ordered [facility] use with inhaler [facility] use with inhaler, See [...] tablet, 1 Refills, Maintenance, 04/02/21 21:23:00 EST, [facility]/pharmacy #2339, 162.5, cm, 01/29/21 12:38:00 EST, Height, [...] Mouth, Daily, # 90 tablet, 1 Refills, [facility] [address]298, 162.5, cm, 01/29/21 12:38:00 EST, Height, 103, kg, 04/10/20 11:20:00 EST, Dry Weight Start Date: 03/03/21 Status: Ordered Problem List Condition Effective Dates Status Health Status Inform ant Asthma(Confirmed) Active Atrial fibrillation(Confirmed) Active Back pain(Confirmed) 1 Active Major depression, chronic(Confirmed) Active CHF (congestive heart failur e) (BFJO51-41% on echo franco 2020)(Confirmed) Active Continuous opioid dependence(Confirmed) Active Opiate analgesic [...]
--- OUTSIDE RECORDS SUMMARY | 2023-08-02 08:36 | XMS_ITS | Continuity of Care Document ---
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 Refills 11, Maintenance, 06/12/21 9:27:00 EDT, Route to Pharmacy Electronically, [facility], Partial fill upon patient request if [...] Mouth, Daily, # 90 tablet, 1 Refills, [facility] STORE 27341, 162.5, cm, 01/29/21 12:38:00 EST, Height, 103, [...] 1 each, 11 Refills, 06/02/21 14:01:00 EDT, [facility]/pharmacy #2339, 2 puffs Inhalation 2 times a day, 160, cm, 06/02/21 13:26:00 EDT, Height, 103, kg, 04/10/20 11:20:00 EST, Dry Weight Start Date: 06/02/21 Status: Ordered ferrous sulfate 325 mg oral enteric coated tablet 1, tablet, By Mouth, 2 times a day, # 180 tablet, Refills 1, Route to Pharmacy Electronically, [facility] STORE 54680, 162.5, cm, 01/29/21 12:38:00 EST, Height, 103, [...] of lasix that day and call your slice plug cutter operator's office for a... Start Date: 06/12/21 Status: [...] 07/03/21 14:52:00 EDT, Route to Pharmacy Electronically, [facility]/pharmacy #2339, Partial fill upon patient requestif the prescription is for a schedule II opioid kal... Start Date: 07/03/21 Status: Ordered metoprolol 50 mg oral tablet, extended release 50 mg, 1, tablet, By Mouth, Daily, take in addition to 25mg tab daily total 75mg daily, # 30 tablet, Refills 6, Tot. Refills 6, Maintenance, 07/25/21 8:35:00 EDT, Route to Pharmacy Electronically, [facility]/pharmacy #2339, Partial fill upon patient request... Start Date: 07/25/21 Status: Ordered Metoprolol Succinate ER 25 mg oral tablet, extended release 1 tablet, By Mouth, Daily, take in addition to 50mg tab, total 75mg daily, # 30 tablet, 6 Refills, Maintenance, 07/25/21 8:35:00 EDT, [facility]/pharmacy #2339, 157.48, cm, 07/01/21 11:10:00 EDT, Height, 111, kg, 06/10/21 15:06:00 EDT, Dry Weight Start Date: 07/25/21 Status: Ordered morphine 15 mg/8 to 12 hr oral tablet, extended release 1 tablet = 15 mg, By Mouth, Every 8 hours, PRN Pain , Moderate, On substance agreement evaluated every 3 to 6 months, # 84 tablet, 0 Refills, Maintenance, 06/25/21 16:52:00 EDT, [facility]/pharmacy #2339, parital fill upon patient request, 157.48, [...] 5 Refills, Maintenance, 06/09/21 15:31:00 EDT, Tablet, [facility]/pharmacy #2339, Partial fill upon patient request if [...] 06/12/21 9:27:00 EDT, Tablet, [facility], Partial fill upon patient request if the prescription is for a... Start Date: 06/12/21 Status: Ordered Problem List Condition Effective Dates Status Health Status Inform ant Asthma(Confirmed) Active Atrial fibrillation(Confirmed) Active Back pain(Confirmed) 1 Active Major depression, chronic(Confirmed) Active CHF (congestive heart failur e) (YUMM74-35% on 2019)(Confirmed) Active Continuous opioid dependence(Confirmed) Active [...]
--- OUTSIDE RECORDS SUMMARY | 2023-08-02 08:36 | XMS_ITS | Continuity of Care Document ---
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 Start Date: 10/13/21 Status: Ordered amLODIPine 10 mg oral tablet 1 tablet, By Mouth, Daily, # 90 tablet, 3 Refills, Maintenance, 02/23/22 8:50:00 EST, [facility] STORE 24629, 157.48, cm, 01/20/22 14:40:00 EDT, Height, 111, kg, 06/10/21 15:06:00 EDT, Dry Weight Start Date: 02/23/22 Status: Ordered ARIPiprazole 5 mg oral tablet 1, tablet, By Mouth, Daily, for 90 days, TO BE COMBINED WITH THE CITALOPRAM THERAPY, # 90 tablet, Refills 3, Tot. Refills 3, Physician Stop 08/01/22 9:00:00 EDT, 08/06/21 9:00:00 EDT, Route to Pharmacy Electronically, [facility]/pharmacy #2339, 157.48, cm, 0... Start Date: 08/06/21 Stop Date: 08/01/22 Status: Ordered aspirin 81 mg oral delayed release tablet 81 mg, By Mouth, Daily, # 30 tablet, Refills 11, Tot. Refills 11, Maintenance, 06/12/21 9:27:00 EDT, Route to Pharmacy Electronically, [facility], Partial fill upon patient request if the prescription is for a schedule II opioid drug., 1... Start Date: 06/12/21 Stop Date: 06/07/22 Status: Ordered Ativan 0.5 mg oral tablet 1 tablet = 0.5 mg, By Mouth, Daily at bedtime, PRN as needed for anxiety, # 30 tablet, 5 Refills, Maintenance, 05/25/22 7:04:00 EST, Tablet, [facility]/pharmacy #2339, Partial fill upon patient request if the prescription is for a schedule II opioid drug., 1... Start Date: 05/25/22 Status: Ordered citalopram 40 mg oral tablet 1 tablet, By Mouth, Daily, # 90 tablet, 1 Refills, Maintenance, 06/22/22 14:38:00 EDT, [facility], 157.48, cm, 05/18/22 9:48:00 EST, Height, 111, [...] # 90 tablet, 1 Refills, [facility], 90, TAKE 1 TABLET BY MOUTH EVERY [...] each, 11 Refills, Maintenance, 07/08/22 11:55:00 EDT, [facility] ST[facility] 81610, 30, INHALE 2 PUFFS TWICE A DAY, 157.48, cm, 05/18/22 9:48:00 EST, Height, 111, kg, 06/10/21 15:06:00 EDT, Dry Weight Start Date: 07/08/22 Status: Ordered Entresto 24 mg-26 mg oral tablet 1 tablet, By Mouth, 2 times a day, # 60 tablet, 11 Refills, [facility] STORE 00515, 30, TAKE 1 TABLET BY MOUTH TWICE [...] 08/06/21 9:01:00 EDT, Route to Pharmacy Electronically, [facility]/pharmacy #2339, 157.48, cm, 08/05/21 14:31:00 EDT, Height, 111,... Start Date: 08/06/21 Stop Date: 08/01/22 Status: Ordered furosemide 20 mg oral tablet 1, tablet, By Mouth, Daily, # 90 tablet, Refills 1, Maintenance, 07/02/22 8:00:00 EDT, Route to Pharmacy Electronically, [facility]ORE 41091, 157.48, cm, 05/18/22 9:48:00 EST, Height, 111, kg, 06/10/21 15:06:00 EDT, Dry Weight Start Date: 07/02/22 Status: Ordered furosemide 20 mg oral tablet 1, tablet, By Mouth, Daily, # 30 tablet, Refills 5, Maintenance, 12/30/21 15:04:00 EDT, Route to Pharmacy Electronically, [facility] 10696, 157.48, cm, 11/04/21 11:33:00 EDT, Height, 111, kg, 06/10/2214:06:00 EDT, Dry Weight Start Date: 12/30/21 Status: Ordered Lipitor 80 mg oral tablet 1 tablet = 80 mg, By Mouth, Daily at bedtime, # 90 tablet, 1 Refills, Maintenance, 07/02/22 13:46:00 EDT, Tablet, [facility], Partial fill upon patient request if the prescription is for a schedule II opioid drug., 157.48, cm, 05/18/22 9:48:00... Start Date: 07/02/22 Stop Date: 12/29/22 Status: Ordered Metoprolol Succinate ER 25 mg oral tablet, extended release 1 tablet, By Mouth, Daily, # 90 tablet, 2 Refills, Maintenance, 05/21/22 10:15:00 EST, [facility]ORE 72885, 157.48, cm, 05/18/22 9:48:00 EST, Height, 111, kg, 06/10/21 15:06:00 EDT, Dry Weight Start Date: 05/21/22 Status: Ordered rOPINIRole 0.25 mg oral tablet See Instructions, TAJE 1 TABLET BY MOUTH AT BEDTIME FOR 1 WEEK THEN INCRAESE TO 2 AT NIGHT FOR 1 WEEK THEN 3 EVERY NIG, # 270 tablet, 1 Refills, Maintenance, 06/22/22 14:48:00 EDT, [facility], 157.48, cm, 05/18/22 9:48:00 EST, Height, 111, kg, 03... Start Date: 06/22/22 Status: Ordered spironolactone 25 mg oral tablet 0.5, tablet, By Mouth, Daily, # 45 tablet, Refills 1, Maintenance, 05/21/22 10:15:00 EST, Route to Pharmacy Electronically, [facility] 74176, 157.48, cm, 05/18/22 9:48:00 EST, Height, 111, [...] chronic Confirmed Active CHF (congestive heart failure) (KTCT14-55% on echo 2019) Confirmed Active Coronary artery [...] Care Team Personnel Name: Radha Villela Position: [facility] RN Supv Member Role: Primary Care Nurse Name: Nichole Coates RN Position: [facility] RN Member Role: Primary Care Nurse Name: Ksenia Herzog RN Position: [facility] RN Member Role: Primary Care Nurse Name: Leatha Walsh RN Position: [facility] RN Member Role: Primary Care Nurse Name: Milagro Sims RN Position: [facility] RN Member Role: Primary Care Nurse Name: Jo Ann Stubbs PharmD Position: [facility] Associate Professional Member Role: [employer] Provider Address: Address: [address] [place] [phone]- Name: Anne Gonzalez RN Position: [facility] RN Member Role: Primary Care Nurse Name: Mckayla Wilcox RN Position: [facility] SN RN Member Role: Primary Care Nurse Name: Simin Chen RN Position: [facility] RN Member Role: Primary Care Nurse Name: Jose Martinez MD Position: [facility] Primary Care Physician Member Role: PCP Address: Address: [address] [place] [id number]- [place] Name: Aleks Merchant RN Position: [facility] RN Member Role: Primary Care Nurse Name: Genet Bowman RN Position: [facility] SN RN Member Role: Primary Care Nurse Name: Ilana Burns RN Position: [facility] RN Member Role: Primary Care Nurse Care Team Related Persons Name: TUTU ROWLAND Address: home [address] [place] [id number] Name: JANET CONNOR Address: [address] [address]
--- OUTSIDE RECORDS SUMMARY | 2023-08-02 08:36 | XMS_ITS | Continuity of Care Document ---
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 5Admin Note: [facility] 6Admin Note: [employer],[place] 7Admin Note: Novaritis Medications ARIPiprazole 5 mg oral tablet 1, tablet, By Mouth, Daily, TO BE COMBINED WITH THE CITALOPRAM THERAPY, # 90 tablet, Refills 1, Route to Pharmacy Electronically, [facility] STORE 85675, 162.5, cm, 12/27/20 14:39:00 EDT, Height, 103, kg, 04/10/20 11:20:00 EST, Dry Weight Start Date: 01/16/21 Status: Ordered Ativan 0.5 mg oral tablet 1 tablet = 0.5 mg, By Mouth, 3 times a day, PRN anxiety, # 90 tablet, 2 Refills, Maintenance, 10/14/20 13:39:00 EDT, Tablet, [facility]/pharmacy #2339, 162.5, cm, 05/15/20 10:27:00 EST, Height, 103, kg, 04/10/20 11:20:00 EST, Dry Weight Start Date: 10/14/20 Status: Ordered atorvastatin 40 mg oral tablet 1 tablet = 40 mg, By Mouth, Daily, # 90 tablet, 1 Refills, Maintenance, 11/16/19 10:37:00 EDT, Tablet, [facility]/pharmacy #2339, 156.6, cm, 10/23/19 15:34:00 EDT, Height, Dry Weight Start Date: 11/16/19 Status: Ordered citalopram 40 mg oral tablet 1 tablet, By Mouth, Daily, # 90 tablet, 1 Refills, Maintenance, 10/28/20 14:21:00 EDT, [facility]/pharmacy#2339, 162.5, cm, 05/15/20 10:27:00 EST, Height, [...] 0 Refills, Maintenance, 01/15/21 17:11:00 EDT, Tablet, [facility]/pharmacy #2339, parital fill upon patient request, 162.5, cm, 12/27/20 1... Start Date: 01/15/21 Status: Ordered Dulera 100 mcg-5 mcg/inh inhalation aerosol 2 puffs, Inhalation, 2 times a day, # 13 Unknown, 11 Refills, Maintenance, 07/22/20 7:52:00 EDT, [facility] STORE 09156, 30, INHALE 2 PUFFS TWICE A DAY, 162.5, cm, 05/15/20 10:27:00 EST, Height, 103, kg, 04/10/20 11:20:00 EST, Dry Weight Start Date: 07/22/20 Status: Ordered ferrous sulfate 325 mg oral enteric coated tablet 1, tablet, By Mouth, 2 times a day, # 180 tablet, Refills 1, Tot. Refills 0, Maintenance, 10/17/20 7:27:00 EDT, Route to Pharmacy Electronically, [facility] STORE 54354, 162.5, cm, 05/15/20 10:27:00 EST, Height, 103, kg, 04/10/20 11:20:00 EST, Dry Weight Start Date: 10/17/20 Status: Ordered lisinopril 10 mg oral tablet 1, tablet, By Mouth, Daily, # 90 tablet, Refills 3, Route to Pharmacy Electronically, [facility] STORE 76656, 162.5, cm, 05/15/20 10:27:00 EST, Height, 103, kg, 04/10/20 11:20:00 EST, Dry Weight Start Date: 11/13/20 Status: Ordered Metoprolol Succinate ER 25 mg oral tablet, extended release 1 tablet, By Mouth, Daily, # 90 tablet, 1 Refills, Maintenance, 07/22/20 7:32:00 EDT, [facility] STORE 84382, 162.5, cm, 05/15/20 10:27:00 EST, Height, 103, kg, 04/10/20 11:20:00 EST, Dry Weight Start Date: 07/22/20 Status: Ordered morphine 15 mg/8 to 12 hr oral tablet, extended release 1 tablet = 15 mg, By Mouth, Every 8 hours, PRN Pain , Moderate, On substance agreement evaluated every 3 to 6 months, # 90 tablet, 0 Refills, Maintenance, 01/15/21 17:11:00 EDT, [facility]/pharmacy #2339, parital fill upon patient request, 162.5, cm, 12/27... Start Date: 01/15/21 Stop Date: 02/14/21 Status: Ordered morphine 30 mg/8 to 12 hr oral tablet, extended release 1 tablet = 30 mg, By Mouth, 3 times a day, OPIATE AGREEMENT evaluated every 3 to 6 months, # 84 tablet, 0 Refills, Maintenance, 01/15/21 17:11:00 EDT, [facility]/pharmacy #2339, may fill for less, 162.5, cm, 12/27/20 14:39:00 EDT, Height, 103, kg, 04/10/20... Start Date: 01/15/21 Stop Date: 02/12/21 Status: Ordered Multivitamin Daily, 0 Refills, Maintenance, 05/25/16 13:36:30 Start Date: 05/25/16 Status: Ordered Nicoderm C-Q 21 mg/24 hr transdermal film, extended release 1 patch, Topically, Daily, # 30 patch, 3 Refills, Maintenance, 08/25/19 16:23:00 EDT, Patch, [facility]/pharmacy #2339, 157, cm, 08/25/19 15:55:00 EDT, Height Start Date: 08/25/19 Status: Ordered [facility] use with inhaler [facility] use with inhaler, See Instructions, # [...] tablet, 3 Refills, Maintenance, 10/17/20 12:35:00 EDT, [facility] ST[facility] 75309, 162.5, cm, 05/15/20 10:27:00 EST, Height, 103, [...] tablet, 1 Refills, Maintenance, 09/02/20 8:48:00 EDT, [facility] STORE 24989, 162.5, cm, 05/15/20 10:27:00 EST, Height, 103, kg, 04/10/20 11:20:00 EST, Dry Weight Start Date: 09/02/20 Status: Ordered Problem List Condition Effective Dates Status Health Status Inform ant Asthma(Confirmed) Active Atrial fibrillation(Confirmed) Active Back pain(Confirmed) 1 Active Major depression, chronic(Confirmed) Active CHF (congestive heart failur e) (PNON48-03% on 2019)(Confirmed) Active Continuous opioid dependence(Confirmed) Active [...] Clinical Service Informant Atrial fibrillation Discharge Diagnosis 01/29/21 Vital Signs Most recent to oldest [Reference Range]: 1 Height 162.5 cm (01/29/21 12:38 PM) Weight 112.6 kg (01/29/21 12:38 PM) Oxygen Saturation [94-100 %] 97 % (01/29/21 12:38 PM) Pulse Rate [55-90 bpm] 65 bpm (01/29/21 12:38 PM) Body Mass Index [18.5-24.99] 42.64 *>HHI* (01/29/21 12:38 PM) Blood Pressure [90-138/55-84 mm Hg] 106/ 74mm Hg (01/29/21 12:38 PM) Blood pressure sites Arm, left (01/29/21 12:38 PM) Social History Social History Type Response Smoking Status 5-9 cigarettes (betw een 1/4 to 1/2 pack)/day in last 30 days; Other: Started at 23 years old; entered on: 01/18/20 Sex
--- OUTSIDE RECORDS SUMMARY | 2023-08-02 08:36 | XMS_ITS | Continuity of Care Document ---
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 5Admin Note: [facility] 6Admin Note: [employer] 7Admin Note: Novaritis Medications ARIPiprazole 5 mg oral tablet 1, tablet, By Mouth, Daily, TO BE COMBINED WITH THE CITALOPRAM THERAPY, # 90 tablet, Refills 1, Route to Pharmacy Electronically, [facility] 76426, 162.5, cm, 12/27/20 14:39:00 EDT, Height, 103, kg, 04/10/20 11:20:00 EST, Dry Weight Start Date: 01/16/21 Status: Ordered Ativan 0.5 mg oral tablet 1 tablet = 0.5 mg, By Mouth, 3 times a day, PRN anxiety, # 90 tablet, 2 Refills, Maintenance, 02/24/21 14:29:00 EST, Tablet, [facility]/pharmacy #2339, 162.5, cm, 01/29/21 12:38:00 EST, Height, 103, kg, 04/10/20 11:20:00 EST, Dry Weight Start Date: 02/24/21 Status: Ordered atorvastatin 40 mg oral tablet 1 tablet = 40 mg, By Mouth, Daily, # 90 tablet, 1 Refills, Maintenance, 11/16/19 10:37:00 EDT, Tablet, [facility]/pharmacy #2339, 156.6, cm, 10/23/19 15:34:00 EDT, Height, Dry Weight Start Date: 11/16/19 Status: Ordered citalopram 40 mg oral tablet 1 tablet, By Mouth, Daily, # 90 tablet, 1 Refills, [facility] 08739, 162.5, cm, 01/29/21 12:38:00 EST, Height, 103, [...] 0 Refills, Maintenance, 04/02/21 12:29:00 EST, Tablet, [facility]/pharmacy #2339, parital fill upon patient request, 162.5, cm, 01/29/21 1... Start Date: 04/02/21 Status: Ordered Dulera 100 mcg-5 mcg/inh inhalation aerosol 2 puffs, Inhalation, 2 times a day, # 13 each, 11 Refills, [facility] 49350, 30, INHALE 2 PUFFS TWICE A DAY, 162.5, cm, 01/29/21 12:38:00 EST, Height, 103, kg, 04/10/20 11:20:00 EST, Dry Weight Start Date: 04/08/21 Status: Ordered ferrous sulfate 325 mg oral enteric coated tablet 1, tablet, By Mouth, 2 times a day, # 180 tablet, Refills 1, Route to Pharmacy Electronically, [facility] 85454, 162.5, cm, 01/29/21 12:38:00 EST, Height, 103, kg, 04/10/20 11:20:00 EST, Dry Weight Start Date: 04/07/21 Status: Ordered lisinopril 10 mg oral tablet 1, tablet, By Mouth, Daily, # 90 tablet, Refills 3, Route to Pharmacy Electronically, [facility] 57610, 162.5, cm, 05/15/20 10:27:00 EST, Height, 103, kg, 04/10/20 11:20:00 EST, Dry Weight Start Date: 11/13/20 Status: Ordered Metoprolol Succinate ER 25 mg oral tablet, extended release 1 tablet, By Mouth, Daily, # 90 tablet, 1 Refills, Maintenance, 04/02/21 9:43:00 EST, [facility], 162.5, cm, 01/29/21 12:38:00 EST, Height, 103, kg, 04/10/20 11:20:00 EST, Dry Weight Start Date: 04/02/21 Status: Ordered morphine 15 mg/8 to 12 hr oral tablet, extended release 1 tablet = 15 mg, By Mouth, Every 8 hours, PRN Pain , Moderate, On substance agreement evaluated every 3 to 6 months, # 90 tablet, 0 Refills, Maintenance, 04/02/21 12:29:00 EST, [facility]/pharmacy #2339, parital fill upon patient request, 162.5, cm, 01/29... Start Date: 04/02/21 Stop Date: 05/02/21 Status: Ordered morphine 30 mg/8 to 12 hr oral tablet, extended release 1 tablet = 30 mg, By Mouth, 3 times a day, OPIATE AGREEMENT evaluated every 3 to 6 months, # 84 tablet, 0 Refills, Maintenance, 04/02/21 12:29:00 EST, [facility]/pharmacy #2339, may fill for less, 162.5, cm, 01/29/21 12:38:00 EST, Height, 103, kg, 04/10/20... Start Date: 04/02/21 Stop Date: 04/30/21 Status: Ordered Multivitamin Daily, 0 Refills, Maintenance, 05/25/16 13:36:30 Start Date: 05/25/16 Status: Ordered [facility]oderm C-Q 21 mg/24 hr transdermal film, extended release 1 patch, Topically, Daily, # 30 patch, 3 Refills, Maintenance, 08/25/19 16:23:00 EDT, Patch, [facility]/pharmacy #2339, 157, cm, 08/25/19 15:55:00 EDT, Height Start Date: 08/25/19 Status: Ordered [facility] use with inhaler [facility] use with inhaler, See Instructions, # [...] tablet, 1 Refills, Maintenance, 04/02/21 21:23:00 EST, [facility], 162.5, cm, 01/29/21 12:38:00 EST, Height, 103, kg, 04/10/20 11:20:00 EST, Dry Weight Start Date: 04/02/21 Status: Ordered Ventolin HFA 108 mcg/inh inhalation aerosol with adapter 2 puffs, Inhalation, Daily, PRN NEEDED FOR WHEEZING, for 90 days, # 54 each, 1 Refills, Physician Stop, [facility], 162.5, cm, 01/29/21 12:38:00 EST, Height, 103, kg, 04/10/20 11:20:00 EST, Dry Weight Start Date: 04/07/21 Stop Date: 07/06/21 Status: Ordered warfarin 5 mg oral tablet 1 tablet, By Mouth, Daily, # 90 tablet, 1 Refills, [facility] 71778, 162.5, cm, 01/29/21 12:38:00 EST, Height, 103, kg, 04/10/20 11:20:00 EST, Dry Weight Start Date: 03/03/21 Status: Ordered Problem List Condition Effective Dates Status Health Status Inform ant Asthma(Confirmed) Active Atrial fibrillation(Confirmed) Active Back pain(Confirmed) 1 Active Major depression, chronic(Confirmed) Active CHF (congestive heart failur e) (ACWS33-08% on echo 2019)(Confirmed) Active Continuous opioid dependence(Confirmed) [...]
--- OUTSIDE RECORDS SUMMARY | 2023-08-02 08:36 | XMS_ITS | Continuity of Care Document ---
Author Organization [facility] Address [address] [place] [address]- Care Team Providers Care Senior Financial Reporting Analyst Name Role Phone Jose Martinez MD Primary Care Physician [phone] Encounter [facility] Date(s): 01/15/22 - 02/14/22 [facility] [address] [place] [address]- Allergies, Adverse Reactions, Alerts Substance Reaction Severity [...] 7 01/21/09 Given 1Result Comment: [facility]:[id number] 2Result Comment: [01/19/2018] [id number] 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 5Admin Note: [employer] [facility] 6Admin Note: [employer],[place] 7Admin Note: Novaritis Medications Albuterol (Eqv-ProAir HFA) [...] 08/06/21 9:00:00 EDT, Route to Pharmacy Electronically, [facility]/pharmacy #[id number], 157.48, cm, 0... Start Date: 08/06/21 Stop Date: 08/01/22 Status: Ordered aspirin 81 mg oral delayed release tablet 81 mg, By Mouth, Daily, # 30 tablet, Refills 11, Tot. Refills 11, Maintenance, 06/12/21 9:27:00 EDT, Route to Pharmacy Electronically, [facility], Partial fill upon patient request if the prescription is for a schedule II opioid drug., 1... Start Date: 06/12/21 Stop Date: 06/07/22 Status: Ordered Ativan 0.5 mg oral tablet 1 tablet = 0.5 mg, By Mouth, Daily at bedtime, PRN as needed for anxiety, # 30 tablet, 3 Refills, Maintenance, 01/15/22 13:14:00 EDT, Tablet, [facility]/pharmacy #[id number], Partial fill upon patient request if the prescription is for a schedule II opioid drug.,... Start Date: 01/15/22 Status: Ordered citalopram 40 mg oral tablet 1 tablet, By Mouth, Daily, for 90 days, # 90 tablet, 3 Refills, Physician Stop 08/01/22 9:01:00 EDT, 08/06/21 9:01:00 EDT, [facility]/pharmacy #[id number], 157.48, cm, 08/05/21 14:31:00 [...] EVERY DAY, # 90 tablet, 1 Refills, [id number], 90, TAKE 1 TABLET BY MOUTH EVERY DAY, 157.48, cm, 08/12/21 10:44:00 EDT, Height, 111, kg, 06/10/21 15:06:00 EDT, Dry Weight Start Date: 10/31/21 Status: Ordered Dulera 100 mcg-5 mcg/inh inhalation aerosol 2 puffs, Inhalation, 2 times a day, # 1 each, 11 Refills, 06/02/21 14:01:00 EDT, [facility]/pharmacy #[id number], 2 puffs Inhalation 2 times a day, 160, cm, 06/02/21 13:26:00 EDT, Height, 103, kg, 04/10/20 11:20:00 EST, Dry Weight Start Date: 06/02/21 Status: Ordered Entresto 24 mg-26 mg oral tablet 1 tablet, By Mouth, 2 times a day, # 60 tablet, 11 Refills, [facility] [id number], 30, TAKE 1 TABLET BY MOUTH TWICE [...] 08/06/21 9:01:00 EDT, Route to Pharmacy Electronically, [facility]/pharmacy #[id number], 157.48, cm, 08/05/21 14:31:00 EDT, Height, 111,... Start Date: 08/06/21 Stop Date: 08/01/22 Status: Ordered furosemide 20 mg oral tablet 1, tablet, By Mouth, Daily, # 30 tablet, Refills 5, Maintenance, 12/30/21 15:04:00 EDT, Route to Pharmacy Electronically, [id number], 157.48, cm, 11/04/21 11:33:00 EDT, Height, 111, kg, 06/10/2214:06:00 EDT, Dry Weight Start Date: 12/30/21 Status: Ordered Lipitor 80 mg oral tablet 1 tablet = 80 mg, By Mouth, Daily at bedtime, # 30 tablet, 11 Refills, Maintenance, 06/12/21 9:27:00 EDT, Tablet, [facility], Partial fill upon patient request if the prescription is for a schedule II opioid drug., 157.48, cm, 06/10/21 1... Start Date: 06/12/21 Status: Ordered metoprolol 100 mg oral tablet, extended release 150 mg, 1.5, tablet, By Mouth, Daily, # 45 tablet, Refills 6, Tot. Refills 6, Maintenance, 01/20/2214:50:00 EDT, Route to Pharmacy Electronically, [facility]/pharmacy #[id number], Partial fill upon patient [...] tablet, 0 Refills, Maintenance, 08/19/21 14:03:00 EDT, [facility]/pharmacy #[id number], parital fill upon patient request, 157.48, cm, 07/21... Start Date: 08/19/21 Stop Date: 09/16/21 Status: Ordered morphine 15 mg/8 to 12 hr oral tablet, extended release 1 tablet = 15 mg, By Mouth, Every 8 hours, PRN Pain , Moderate, On substance agreement evaluated every 3 to 6 months, # 84 tablet, 0 Refills, Maintenance, 11/25/21 15:15:00 EDT, [facility]/pharmacy #[id number], parital fill [...] tablet, 1 Refills, Maintenance, 11/25/21 12:04:00 EDT, [facility] [address]002, 157.48, cm, 11/04/21 11:33:00 EDT, Height, 111, kg, 03... Start Date: 11/25/21 Status: Ordered warfarin 5 mg oral tablet 0.5 tablet = 2.5 mg, By Mouth, Daily, Goal INR 2-3 Please follow up with your coumadin clinic, # 15tablet, 0 Refills, Maintenance, 06/12/21 9:27:00 EDT, Tablet, [facility], Partial fill upon patient request if the prescription is for a... Start Date: 06/12/21 Status: Ordered Problem List Condition Confirmation Course Effective Dates Status H ealth Status Informant Asthma Confirmed Active Atrial fibrillation Confirmed Active Back pain 1 Confirmed Active Major depression, chronic Confirmed Active CHF (congestive heart failure) (RQMU51-41% on echo 2019) Confirmed Active Continuous opioid [...] Care Nurse Name: Nichole Coates RN Position: [facility] RN Member Role: Primary Care Nurse Name: Ksenia Herzog RN Position: [facility] RN Member Role: Primary Care Nurse Name: Leatha Walsh RN Position: [facility] RN Member Role: Primary Care Nurse Name: Milagro Sims RN Position: [facility] RN Member Role: Primary Care Nurse Name: Jo Ann Stubbs PharmD Position: [facility] Associate Professional Member Role: Lifetime Consulting Provider Address: Address: [address] [place] [phone]- [place] Name: Anne Gonzalez RN Position: [facility] RN Member Role: Primary Care Nurse Name: Mckayla Wilcox RN Position: [facility] SN RN Member Role: Primary Care Nurse Name: Simin Chen RN Position: [facility] RN Member Role: Primary Care Nurse Name: Jose Martinez MD Position: [facility] Primary Care Physician Member Role: PCP Address: Address: [address] [place] [phone]- [place] Name: Aleks Merchant RN Position: [facility] RN Member Role: Primary Care Nurse Name: Genet Bowman RN Position: [facility] SN RN Member Role: Primary Care Nurse Name: Ilana Burns RN Position: [facility] RN Member Role: Primary Care Nurse Care Team Related Persons Name: TUTU ROWLAND Address: [address] [address] Name: JANET CONNOR Address: home [address] [place] [address]
--- OUTSIDE RECORDS SUMMARY | 2023-08-02 08:36 | XMS_ITS | Continuity of Care Document ---
Author Organization [facility] Address [address] [place] [address]- Care Team Providers Care Production Helper Name Role Phone Michelle HICKEY, Jose Primary Care Physician Encounter 01/23/20 - 03/18/20 [facility] [address] [place] [phone]- Discharge Disposition: GOALS [facility] Allergies, Adverse Reactions, Alerts Substance Reaction Severity [...] inactive(oldterm) 6 01/21/09 Given 1Result Comment: [01/19/2018] [id number] 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 Refills 11, Maintenance, 07/31/19 14:19:00 EDT, [id number], cm, 07/31/19 13:53:00 EDT, Height, 1... Start Date: 07/31/19 Status: Ordered Ativan 0.5 mg oral tablet 1 tablet = 0.5 mg, By Mouth, 3 times a day, PRN anxiety, # 90 tablet, 2 Refills, Maintenance, 02/26/20 20:28:00 EST, Tablet, [facility], cm, 01/26/20 9:40:00 EST, Height, 104, kg, 01/19/20 3:57:00 EDT, Dry Weight Start Date: 02/26/20 Status: Ordered atorvastatin 40 mg oral tablet 1 tablet = 40 mg, By Mouth, Daily, # 90 tablet, 1 Refills, Maintenance, 11/16/19 10:37:00 EDT, Tablet, [facility] 156.6, cm, 10/23/19 15:34:00 EDT, Height, Dry Weight Start Date: 11/16/19 Status: Ordered citalopram 40 mg oral tablet 1 tablet, By Mouth, Daily, # 90 tablet, 1 Refills, Maintenance, 10/03/19 13:25:00 EDT, [id number], 157, cm, 08/25/19 15:55:00 EDT, Height Start [...] 0 Refills, Maintenance, 02/07/20 16:16:00 EST, Tablet, [facility]/pharmacy #[id number], parital fill upon patient request, 160, cm, 01/26/20 9:4... Start Date: 02/07/20 Status: Ordered Dulera 100 mcg-5 mcg/inh inhalation aerosol 2 puffs, Inhalation, 2 times a day, # 1 each, 11 Refills, Maintenance, 07/31/19 14:15:00 EDT, Aerosol, [facility]/pharmacy #2339, 2 puffs Inhalation 2 times a day, 157, cm, 07/31/19 13:53:00 EDT, Height, 104, kg, 08/03/17 12:54:00 EDT, Dry Weight Start Date: 07/31/19 Status: Ordered ferrous sulfate 325 mg oral enteric coated tablet 325 mg, By Mouth, 2 times a day, # 60 tablet, Refills 1, Tot. Refills 1, Maintenance, 03/14/20 13:59:00 EST, Route to Pharmacy Electronically, [facility]/pharmacy #[id number], 160, cm, 02/28/20 10:28:00 EST, Height, 104, kg, 01/19/20 3:57:00 EDT, Dry Weight Start Date: 03/14/20 Status: Ordered Lasix 40 mg oral tablet 40 mg, 1, tablet, By Mouth, Daily, # 30 tablet, Refills 5, Tot. Refills 5, Maintenance, 03/11/20 13:11:00 EST, Route to Pharmacy Electronically, [facility]/pharmacy #2339, 160, cm, 02/28/20 10:28:00 EST, Height, 104, kg, 01/19/20 3:57:00 EDT, Dry Weight Start Date: 03/11/20 Status: Ordered lisinopril 10 mg oral tablet 10 mg, 1, tablet, By Mouth, Daily, # 90 tablet, Refills 0, Tot. Refills 0, Maintenance, 02/26/20 14:41:00 EST, Route to Pharmacy Electronically, [facility]/pharmacy #[id number], Partial fill upon patient [...] tablet, 0 Refills, Maintenance, 03/11/20 15:21:00 EST, [facility]/pharmacy #[id number], parital fill upon patient request, 160, cm, ... Start Date: 03/11/20 Stop Date: 04/10/20 Status: Ordered morphine 30 mg/8 to 12 hr oral tablet, extended release 1 tablet = 30 mg, By Mouth, 3 times a day, OPIATE AGREEMENT evaluated every 3 to 6 months, # 84 tablet, 0 Refills, Maintenance, 02/07/20 16:16:00 EST, [facility]/pharmacy #[id number], may fill for less, 160, cm, 01/26/20 9:40:00 EST, Height, 104, kg, 01/19/20 3:5... Start Date: 02/07/20 Stop Date: 03/06/20 Status: Ordered Multivitamin Daily, 0 Refills, Maintenance, 05/25/16 13:36:30 Start Date: 05/25/16 Status: Ordered Nicoderm C-Q 21 mg/24 hr transdermal film, extended release 1 patch, Topically, Daily, # 30 patch, 3 Refills, Maintenance, 08/25/19 16:23:00 EDT, Patch, [facility]/pharmacy #2339, 157, cm, 08/25/19 15:55:00 EDT, Height Start Date: 08/25/19 Status: Ordered [facility] use with inhaler [facility] use with inhaler, See Instructions, [...] 01/22/20 9:08:00 EST, Route to Pharmacy Electronically, [facility]/pharmacy #[id number], 160, cm, 01/22/20 7:53:00 EST, Height, 104, kg, 01/19/20 3:57:00 EDT, Dry Weight Start Date: 01/22/20 Stop Date: 07/20/20 Status: Ordered Ventolin HFA 108 mcg/inh inhalation aerosol with adapter 2 puffs, Inhalation, 4 times a day, PRN for wheezing, # 8 Gm, 5 Refills, Maintenance, 12/20/19 11:27:00 EDT, Aerosol, [facility]/pharmacy #2339, 156.6, cm, 10/23/19 15:34:00 EDT, Height Start Date: 12/20/19 Status: Ordered warfarin 5 mg oral tablet 1 tablet = 5 mg, By Mouth, Daily, # 30 tablet, 5 Refills, Maintenance, 02/26/20 12:12:00 EST, Tablet, [facility]/pharmacy #[id number], 160, cm, 01/26/20 9:40:00 [...]
--- OUTSIDE RECORDS SUMMARY | 2023-08-02 08:36 | XMS_ITS | Continuity of Care Document ---
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 5Admin Note: [facility] [facility] 6Admin Note: [employer],[place] 7Admin Note: Novaritis Medications ARIPiprazole 5 mg oral tablet 1, tablet, By Mouth, Daily, for 90 days, TO BE COMBINED WITH THE CITALOPRAM THERAPY, # 90 tablet, Refills 3, Tot. Refills 3, Physician Stop 08/01/22 9:00:00 EDT, 08/06/21 9:00:00 EDT, Route to Pharmacy Electronically, [facility]/pharmacy #[id number], 157.48, cm, 0... Start Date: 08/06/21 Stop Date: 08/01/22 Status: Ordered aspirin 81 mg oral delayed release tablet 81 mg, By Mouth, Daily, # 30 tablet, Refills 11, Tot. Refills 11, Maintenance, 06/12/21 9:27:00 EDT, Route to Pharmacy Electronically, [facility], Partial fill upon patient request if the prescription is for a schedule II opioid drug., 1... Start Date: 06/12/21 Stop Date: 06/07/22 Status: Ordered Ativan 0.5 mg oral tablet 1 tablet = 0.5 mg, By Mouth, Daily at bedtime, PRN as needed for anxiety, # 30 tablet, 1 Refills, Maintenance, 08/06/21 9:02:00 EDT, Tablet, [facility]/pharmacy #[id number], Partial fill upon patient request if the prescription is for a schedule II opioid drug., 1... Start Date: 08/06/21 Status: Ordered citalopram 40 mg oral tablet 1 tablet, By Mouth, Daily, for 90 days, # 90 tablet, 3 Refills, Physician Stop 08/01/22 9:01:00 EDT, 08/06/21 9:01:00 EDT, [facility]/pharmacy #2339, 157.48, cm, 08/05/21 14:31:00 EDT, [...] 1 each, 11 Refills, 06/02/21 14:01:00 EDT, [facility]/pharmacy #2339, 2 puffs Inhalation 2 times a day, 160, cm, 06/02/21 13:26:00 EDT, Height, 103, kg, 04/10/20 11:20:00 EST, Dry Weight Start Date: 06/02/21 Status: Ordered Entresto 24 mg-26 mg oral tablet 1 tablet, By Mouth, 2 times a day, # 60 tablet, 0 Refills, Maintenance, 08/12/21 11:05:00 EDT, Tablet, [facility]/pharmacy #2339, Partial fill upon patient [...] 9:01:00 EDT, Route to Pharmacy Electronically, [facility]/pharmacy #2339, 157.48, cm, 08/05/21 14:31:00 EDT, [...] of lasix that day and call your sales clerk's office for a... Start Date: 06/12/21 Status: Ordered Lipitor 80 mg oral tablet 1 tablet = 80 mg, By Mouth, Daily at bedtime, # 30 tablet, 11 Refills, Maintenance, 06/12/21 9:27:00 EDT, Tablet, [facility], Partial fill upon [...] 07/25/21 8:35:00 EDT, Route to Pharmacy Electronically, [facility]/pharmacy #2339, Partial fill upon patient request... Start Date: 07/25/21 Status: Ordered Metoprolol Succinate ER 25 mg oral tablet, extended release 1 tablet, By Mouth, Daily, take in addition to 50mg tab, total 75mg daily, # 30 tablet, 6 Refills, Maintenance, 07/25/21 8:35:00 EDT, [facility]/pharmacy #2339, 157.48, cm, 07/01/21 11:10:00 EDT, Height, 111, kg, 06/10/21 15:06:00 EDT, Dry Weight Start Date: 07/25/21 Status: Ordered morphine 15 mg/8 to 12 hr oral tablet, extended release 1 tablet = 15 mg, By Mouth, Every 8 hours, PRN Pain , Moderate, On substance agreement evaluated every 3 to 6 months, # 84 tablet, 0 Refills, Maintenance, 06/25/21 16:52:00 EDT, [facility]/pharmacy #2339, parital fill upon patient request, [...] 5 Refills, Maintenance, 06/09/21 15:31:00 EDT, Tablet, [facility]/pharmacy #2339, Partial fill upon patient [...] each, 1 Refills, Maintenance, 08/05/21 15:00:00 EDT, [facility]/pharmacy #2339, Partial fill upon patient request if the prescription is for a schedul... Start Date: 08/05/21 Status: Ordered warfarin 5 mg oral tablet 0.5 tablet = 2.5 mg, By Mouth, Daily, Goal INR 2-3 Please follow up with your coumadin clinic, # 15tablet, 0 Refills, Maintenance, 06/12/21 9:27:00 EDT, Tablet, [facility], Partial fill upon patient request if the prescription is for a... Start Date: 06/12/21 Status: Ordered Problem List Condition Effective Dates Status Health Status Inform ant Asthma(Confirmed) Active Atrial fibrillation(Confirmed) Active Back pain(Confirmed) 1 Active Major depression, chronic(Confirmed) Active CHF (congestive heart failur e) (QSLK65-63% on 2019)(Confirmed) Active Continuous opioid dependence(Confirmed) Active [...]
--- OUTSIDE RECORDS SUMMARY | 2023-08-02 08:36 | XMS_ITS | Continuity of Care Document ---
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 5Admin Note: [employer] [facility] 6Admin Note: [employer]/[place]ayxalessandra,[place] 7Admin Note: Novaritis Medications Albuterol (Eqv-ProAir HFA) [...] Replace Required Details, Route to Pharmacy Electronically, [facility]/pharmacy #[id number], Partial fill upon patient request if... Start Date: 05/12/22 Status: Ordered amLODIPine 10 mg oral tablet 1 tablet, By Mouth, Daily, # 90 tablet, 3 Refills, Maintenance, 02/23/22 8:50:00 EST, [facility] STORE [id number], 157.48, cm, 01/20/22 14:40:00 EDT, Height, 111, kg, 06/10/21 15:06:00 EDT, Dry Weight Start Date: 02/23/22 Status: Ordered ARIPiprazole 5 mg oral tablet 1, tablet, By Mouth, Daily, for 90 days, TO BE COMBINED WITH THE CITALOPRAM THERAPY, # 90 tablet, Refills 3, Tot. Refills 3, Physician Stop 08/01/22 9:00:00 EDT, 08/06/21 9:00:00 EDT, Route to Pharmacy Electronically, [facility]/pharmacy #[id number], 157.48, cm, 0... Start Date: 08/06/21 Stop Date: 08/01/22 Status: Ordered aspirin 81 mg oral delayed release tablet 81 mg, By Mouth, Daily, # 30 tablet, Refills 11, Tot. Refills 11, Maintenance, 06/12/21 9:27:00 EDT, Route to Pharmacy Electronically, [facility], Partial fill upon patient request if the prescription is for a schedule II opioid drug., 1... Start Date: 06/12/21 Stop Date: 06/07/22 Status: Ordered Ativan 0.5 mg oral tablet 1 tablet = 0.5 mg, By Mouth, Daily at bedtime, PRN as needed for anxiety, # 30 tablet, 3 Refills, Maintenance, 01/15/22 13:14:00 EDT, Tablet, [facility]/pharmacy #2339, Partial fill upon patient request if the prescription is for a schedule II opioid drug.,... Start Date: 01/15/22 Status: Ordered citalopram 40 mg oral tablet 1 tablet, By Mouth, Daily, for 90 days, # 90 tablet, 3 Refills, Physician Stop 08/01/22 9:01:00 EDT, 08/06/21 9:01:00 EDT, [facility]/pharmacy #2339, 157.48, cm, 08/05/21 14:31:00 EDT, Height, [...] DAY, # 90 tablet, 1 Refills, [facility] STORE [id number], 90, TAKE 1 TABLET BY MOUTH EVERY [...] 11 Refills, 06/02/21 14:01:00 EDT, [facility]/pharmacy #2339, 2 puffs Inhalation 2 times a day, 160, cm, 06/02/21 13:26:00 EDT, Height, 103, kg, 04/10/20 11:20:00 EST, Dry Weight Start Date: 06/02/21 Status: Ordered Entresto 24 mg-26 mg oral tablet 1 tablet, By Mouth, 2 times a day, # 60 tablet, 11 Refills, [facility] STORE 40368, 30, TAKE 1 TABLET BY MOUTH TWICE [...] EDT, Route to Pharmacy Electronically, [facility]/pharmacy #2339, 157.48, cm, 08/05/21 14:31:00 EDT, Height, 111,... Start Date: 08/06/21 Stop Date: 08/01/22 Status: Ordered furosemide 20 mg oral tablet 1, tablet, By Mouth, Daily, # 30 tablet, Refills 5, Maintenance, 12/30/21 15:04:00 EDT, Route to Pharmacy Electronically, [facility] STORE [id number], 157.48, cm, 11/04/21 11:33:00 EDT, Height, 111, kg, 06/10/2214:06:00 EDT, Dry Weight Start Date: 12/30/21 Status: Ordered Lipitor 80 mg oral tablet 1 tablet = 80 mg, By Mouth, Daily at bedtime, # 30 tablet, 11 Refills, Maintenance, 06/12/21 9:27:00 EDT, Tablet, [facility], Partial fill upon patient request if the prescription is for a schedule II opioid drug., 157.48, cm, 06/10/21 1... Start Date: 06/12/21 Status: Ordered metoprolol 100 mg oral tablet, extended release 150 mg, 1.5, tablet, By Mouth, Daily, # 45 tablet, Refills 6, Tot. Refills 6, Maintenance, 01/20/2214:50:00 EDT, Route to Pharmacy Electronically, [facility]/pharmacy #2339, Partial fill [...] 0 Refills, Maintenance, 08/19/21 14:03:00 EDT, [facility]/pharmacy #2339, parital fill upon patient request, 157.48, cm, 07/21... Start Date: 08/19/21 Stop Date: 09/16/21 Status: Ordered morphine 15 mg/8 to 12 hr oral tablet, extended release 1 tablet = 15 mg, By Mouth, Every 8 hours, PRN Pain , Moderate, On substance agreement evaluated every 3 to 6 months, # 84 tablet, 0 Refills, Maintenance, 11/25/21 15:15:00 EDT, [facility]/pharmacy #2339, parital fill upon patient request, 157.48, [...] tablet, 5 Refills, Maintenance, 02/23/22 8:50:00 EST, [facility], 157.48, cm, 01/20/22 14:40:00 EDT, Height, 111, kg, 03/... Start Date: 02/23/22 Status: Ordered warfarin 5 mg oral tablet See Instructions, Take 1/2 to 1 tablet By Mouth Daily as directed by coumadin clinic, # 90 tablet, 2 Refills, Maintenance, 05/12/22 13:52:00 EST, Tablet, [facility]/pharmacy #2339, Partial fill upon patientrequest if the prescription is for a schedule II... Start Date: 05/12/22 Status: Ordered Problem List Condition Confirmation Course Effective Dates Status H ealth Status Informant Asthma Confirmed Active Atrial fibrillation Confirmed Active Back pain 1 Confirmed Active Cardiomyopathy Confirmed Active Major depression, chronic Confirmed Active CHF (congestive heart failure) (XWNI37-69% on echo 2019) Confirmed Active Continuous opioid [...] oldest [Reference Range]: 1 Height 157.48 cm (05/06/22 11:34 AM) Weight 119.4 kg (05/06/22 11:34 AM) Oxygen Saturation [94-100 %] 98 % (05/06/22 11:34 AM) Pulse Rate [55-90 bpm] 81 bpm (05/06/22 11:34 AM) Body Mass Index [18.5-24.99 kg/m2] 48.15 kg/m2 *>HHI* (05/06/22 11:34 AM) Blood Pressure [90-138/55-84 mm Hg] 114/ 73mm Hg (05/06/22 11:34 AM) Mode of Delivery (Oxygen) Room air (05/06/22 11:34 AM) Blood pressure sites Arm, left (05/06/22 11:34 AM) Social History Social History Type Response Smoking Status 5-9 cigarettes (betw een 1/4 to 1/2 pack)/day in last 30 days; Other: Started at 23 years old; entered on: 01/18/20 Sex Female Patient Care team information Care Team Personnel Name: Radha Villela Position: [facility] RN Supv Member Role: Primary Care Nurse Name: Nichole Coates RN Position: [facility] SN RN Member Role: Primary Care Nurse Name: Ksenia Herzog RN Position: S RN Member Role: Primary Care Nurse Name: Leatha Walsh RN Position: [facility] RN Member Role: Primary Care Nurse Name: Milagro Sims RN Position: [facility] RN Member Role: Primary Care Nurse Name: Jo Ann Stubbs PharmD Position: [facility] Associate Professional Member Role: [employer] Consult[employer] Provider Address: Address: [address] [place] [address]- Name: Anne Gonzalez RN Position: [facility] RN Member Role: Primary Care Nurse Name: Mckayla Wilcox RN Position: [facility] SN RN Member Role: Primary Care Nurse Name: Simin Chen RN Position: [facility] RN Member Role: Primary Care Nurse Name: Jose Martinez MD Position: [facility] Primary Care Physician Member Role: PCP Address: Address: [address] [place] [address]- Name: Aleks Merchant RN Position: [facility] RN Member Role: Primary Care Nurse Name: Genet Bowman RN Position: [facility] SN RN Member Role: Primary Care Nurse Name: Ilana Burns RN Position: [facility] RN Member Role: Primary Care Nurse Care Team Related Persons Name: KASHIFTUTU Address: home [address] [place] [address] Name: JANET CONNOR Address: home [address] [place] [address]
--- OUTSIDE RECORDS SUMMARY | 2023-08-02 08:36 | XMS_ITS | Continuity of Care Document ---
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 Role Phone Jose Martinez MD Primary Care Physician [phone] [facility]counter [facility] Date(s): 10/14/21 - 10/21/21 [facility] [address] [place] [address]- Encounter Diagnosis CHF (congestive heart failure) (AMIE74-79% on echo 2019)(Discharge Diagnosis) - 10/14/21 Atrial fibrillation(Discharge Diagnosis) - 10/14/21 Coronary artery disease(Discharge Diagnosis) - 10/14/21 Hypertension(Discharge Diagnosis) - 10/14/21 Hyperlipidemia(Discharge Diagnosis) - 10/14/21 PRINCESS - Obstructive sleep apnea(Discharge Diagnosis) - 10/14/21 Severe obesity(Discharge Diagnosis) - 10/14/21 Tobacco dependence(Discharge Diagnosis) - 10/14/21 Attending Physician: Ruth Kiser MD Referring Physician: [...] H1N1, inactive(oldterm) 7 01/21/09 Given 1Result Comment: [facility]:[id number] 2Result Comment: [01/19/2018] [id number] 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 5Admin Note: [employer] [facility] 6Admin Note: [employer]/[facility] 7Admin Note: Novaritis Medications Albuterol (Eqv-ProAir HFA) [...] 08/06/21 9:00:00 EDT, Route to Pharmacy Electronically, [facility]/pharmacy #[id number], 157.48, cm, 0... Start Date: 08/06/21 Stop Date: 08/01/22 Status: Ordered aspirin 81 mg oral delayed release tablet 81 mg, By Mouth, Daily, # 30 tablet, Refills 11, Tot. Refills 11, Maintenance, 06/12/21 9:27:00 EDT, Route to Pharmacy Electronically, [facility], Partial fill upon patient request if the prescription is for a schedule II opioid drug., 1... 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 Start Date: 06/12/21 Status: Ordered Lipitor 80 mg oral tablet 1 tablet = 80 mg, By Mouth, Daily at bedtime, # 30 tablet, 11 Refills, Maintenance, 06/12/21 9:27:00 EDT, Tablet, [facility], Partial fill upon patient request if the prescription is for a schedule II opioid drug., 157.48, cm, 06/10/21 1... Start Date: 06/12/21 Status: Ordered metoprolol 100 mg oral tablet, extended release 100 mg, 1, tablet, By Mouth, Daily, # 90 tablet, Refills 3, Tot. Refills 3, Maintenance, 09/11/21 12:08:00 EDT, [id number] 157.48, cm, 08/12/21 10:44:00 EDT, Height, [...] tablet, 0 Refills, Maintenance, 10/13/21 14:41:00 EDT, [id number], parital fill upon patient [...] 0 Refills, Maintenance, 06/12/21 9:27:00 EDT, Tablet, [facility], Partial fill upon patient request if the prescription is for a... Start Date: 06/12/21 Status: Ordered Problem List Condition Effective Dates Status Health Status Inform ant Asthma(Confirmed) Active Atrial fibrillation(Confirmed) Active Back pain(Confirmed) 1 Active Major depression, chronic(Confirmed) Active CHF (congestive heart failur e) (GPNO34-35% on 2019)(Confirmed) Active Continuous opioid dependence(Confirmed) Active [...] Effective Dates Health Status Clinical Service Informant CHF (congestive heart failure) (MFLC65-64% on 2019) Discharge Diagnosis 10/14/21 Atrial fibrillation Discharge Diagnosis 10/14/21 Coronary artery disease Discharge Diagnosis 10/14/21 Hypertension Discharge Diagnosis 10/14/21 Hyperlipidemia Discharge Diagnosis 10/14/21 PRINCESS - Obstructive sleep apnea Discharge Diagnosis 10/14/21 Severe obesity Discharge Diagnosis 10/14/21 Tobacco dependence Discharge Diagnosis 10/14/21 Social History Social History Type Response Smoking Status 5-9 cigarettes (betw een 1/4 to 1/2 pack)/day in last 30 days; Other: Started at 23 years old; entered on: 01/18/20 Sex
--- OUTSIDE RECORDS SUMMARY | 2023-08-02 08:36 | XMS_ITS | Continuity of Care Document ---
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 4Admin Note: [employer] 5Admin Note: [employer],[place] 6Admin Note: Novaritis Medications Abilify 5 mg oral tablet 5 mg, 1, tablet, By Mouth, Daily, to be combined with the citalopram therapy, # 90 tablet, Refills 0, Tot. Refills 0, Maintenance, 07/20/20 19:50:00 EDT, [id number] 162[facility]5, cm, 05/15/20 10:27:00 EST, Height, 1... Start Date: 07/20/20 Status: Ordered Ativan 0.5 mg oral tablet 1 tablet = 0.5 mg, By Mouth, 3 times a day, PRN anxiety, # 90 tablet, 2 Refills, Maintenance, 05/20/20 14:21:00 EST, [facility], [facility] 162.5, cm, 05/15/20 10:27:00 EST, Height, 103, kg, 04/10/20 11:20:00 EST, Dry Weight Start Date: 05/20/20 Status: Ordered atorvastatin 40 mg oral tablet 1 tablet = 40 mg, By Mouth, Daily, # 90 tablet, 1 Refills, Maintenance, 11/16/19 10:37:00 EDT, Tablet, [facility]/pharmacy #2339, 156.6, cm, 10/23/19 15:34:00 EDT, Height, Dry Weight Start Date: 11/16/19 Status: Ordered citalopram 40 mg oral tablet 1 tablet, By Mouth, Daily, # 90 tablet, 1 Refills, Maintenance, 04/04/20 11:03:00 EST, [facility]/pharmacy#2339, 162.5, cm, 04/03/20 11:38:00 [...] months, # 28 tablet, 0 Refills, Maintenance, 08/20/20 16:59:00 EDT, Tablet, [facility]/pharmacy #2339, parital fill upon patient request, 162.5, cm, 05/15/20 1... Start Date: 08/20/20 Status: Ordered Dulera 100 mcg-5 mcg/inh inhalation aerosol 2 puffs, Inhalation, 2 times a day, # 13 Unknown, 11 Refills, Maintenance, 07/22/20 7:52:00 EDT, [facility] ST[facility] 74324, 30, INHALE 2 PUFFS TWICE A DAY, 162.5, cm, 05/15/20 10:27:00 EST, Height, 103, kg, 04/10/20 11:20:00 EST, Dry Weight Start Date: 07/22/20 Status: Ordered ferrous sulfate 325 mg oral enteric coated tablet 325 mg, By Mouth, 2 times a day, # 60 tablet, Refills 5, Tot. Refills 5, Maintenance, 04/17/20 10:12:00 EST, Route to Pharmacy Electronically, [facility]/pharmacy #2339, 162.5, cm, 04/10/20 11:20:00 EST, Height, 103, kg, 04/10/20 11:20:00 EST, Dry Weight Start Date: 04/17/20 Status: Ordered furosemide 40 mg oral tablet 1, tablet, By Mouth, Daily, # 90 tablet, Refills 1, Tot. Refills 0, Maintenance, 09/09/20 14:39:00 EDT, Route to Pharmacy Electronically, [facility] ST[facility] 68370, 162.5, cm, 05/15/20 10:27:00 EST, Height, 103, kg, 04/10/20 11:20:00 EST, Dry Weight Start Date: 09/09/20 Status: Ordered lisinopril 10 mg oral tablet 10 mg, 1, tablet, By Mouth, Daily, # 90 tablet, Refills 1, Tot. Refills 1, Maintenance, 05/20/20 8:39:00 EST, Route to Pharmacy Electronically, [facility]/pharmacy #2339, 162.5, cm, 05/15/20 10:27:00 EST, Height, 103, kg, 04/10/20 11:20:00 EST, Dry Weight Start Date: 05/20/20 Stop Date: 11/16/20 Status: Ordered Metoprolol Succinate ER 25 mg oral tablet, extended release 1 tablet, By Mouth, Daily, # 90 tablet, 1 Refills, Maintenance, 07/22/20 7:32:00 EDT, [facility] STORE 48720, 162.5, cm, 05/15/20 10:27:00 EST, Height, 103, kg, 04/10/20 11:20:00 EST, Dry Weight Start Date: 07/22/20 Status: Ordered morphine 15 mg/8 to 12 hr oral tablet, extended release 1 tablet = 15 mg, By Mouth, Every 8 hours, PRN Pain , Moderate, On substance agreement evaluated every 3 to 6 months, # 90 tablet, 0 Refills, Maintenance, 08/20/20 16:59:00 EDT, [facility]/pharmacy #2339, parital fill upon patient request, 162.5, cm, 05/15... Start Date: 08/20/20 Stop Date: 09/19/20 Status: Ordered morphine 30 mg/8 to 12 hr oral tablet, extended release 1 tablet = 30 mg, By Mouth, 3 times a day, OPIATE AGREEMENT evaluated every 3 to 6 months, # 84 tablet, 0 Refills, Maintenance, 08/20/20 16:59:00 EDT, [facility], may fill for less, 162.5, cm, 05/15/20 10:27:00 EST, Height, 103, kg, 04/10/20... Start Date: 08/20/20 Stop Date: 09/17/20 Status: Ordered Multivitamin Daily, 0 Refills, Maintenance, [...] EDT, Height Start Date: 08/25/19 Status: Ordered Ventolin HFA 108 mcg/inh inhalation [...] tablet, 1 Refills, Maintenance, 09/02/20 8:48:00 EDT, [facility], 162.5, cm, 05/15/20 10:27:00 EST, Height, 103, [...]
--- OUTSIDE RECORDS SUMMARY | 2023-08-02 08:36 | XMS_ITS | Continuity of Care Document ---
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 Refills 11, Maintenance, 06/12/21 9:27:00 EDT, Route to Pharmacy Electronically, [facility], Partial fill upon patient request [...] Mouth, Daily, # 90 tablet, 1 Refills, [facility] STORE 71321, 162.5, cm, 01/29/21 12:38:00 EST, Height, 103, kg, 04/10/20 11:20:00 EST, Dry Weight Start Date: 04/07/21 Status: Ordered Dulera 100 mcg-5 mcg/inh inhalation aerosol 2 puffs, Inhalation, 2 times a day, # 1 each, 11 Refills, 06/02/21 14:01:00 EDT, [facility]/pharmacy #2339, 2 puffs Inhalation 2 times a day, 160, cm, 06/02/21 13:26:00 EDT, Height, 103, kg, 04/10/20 11:20:00 EST, Dry Weight Start Date: 06/02/21 Status: Ordered ferrous sulfate 325 mg oral enteric coated tablet 1, tablet, By Mouth, 2 times a day, # 180 tablet, Refills 1, Route to Pharmacy Electronically, [facility] STORE 33233, 162.5, cm, 01/29/21 12:38:00 EST, Height, 103, [...] of lasix that day and 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 Start Date: 06/12/21 Status: Ordered Lipitor 80 mg oral tablet 1 tablet = 80 mg, By Mouth, Daily at bedtime, # 30 tablet, 11 Refills, Maintenance, 06/12/21 9:27:00 EDT, Tablet, [facility], Partial fill upon patient request if the prescription is for a schedule II opioid drug., 157.48, cm, 06/10/21 1... Start Date: 06/12/21 Status: Ordered lisinopril 5 mg oral tablet 5 mg, 1, tablet, By Mouth, Daily, # 30 tablet, Refills 11, Tot. Refills 11, Maintenance, 07/03/21 14:52:00 EDT, [facility] Partial fill upon patient requestif the prescription is for a schedule II opioid kal... Start Date: 07/03/21 Status: Ordered Metoprolol Succinate ER 25 mg oral tablet, extended release 1 tablet, By Mouth, Daily, # 30 tablet, 1 Refills, Maintenance, 06/12/21 9:27:00 EDT, [facility], 157.48, cm, 06/10/21 17:04:00 EDT, Height, 111, kg, 06/10/21 15:06:00 EDT, Dry Weight Start Date: 06/12/21 Status: Ordered morphine 15 mg/8 to 12 hr oral tablet, extended release 1 tablet = 15 mg, By Mouth, Every 8 hours, PRN Pain , Moderate, On substance agreement evaluated every 3 to 6 months, # 84 tablet, 0 Refills, Maintenance, 06/25/21 16:52:00 EDT, [facility]/pharmacy #2339, parital fill upon patient request, [...] 5 Refills, Maintenance, 06/09/21 15:31:00 EDT, Tablet, [facility]/pharmacy #2339, Partial fill upon patient request [...] 0 Refills, Maintenance, 06/12/21 9:27:00 EDT, Tablet, [facility], Partial fill upon patient request if the prescription is for a... Start Date: 06/12/21 Status: Ordered Problem List Condition Effective Dates Status Health Status Inform ant Asthma(Confirmed) Active Atrial fibrillation(Confirmed) Active Back pain(Confirmed) 1 Active Major depression, chronic(Confirmed) Active CHF (congestive heart failur e) (JWFT34-60% on echo 2019)(Confirmed) Active Continuous opioid dependence(Confirmed) [...]
--- OUTSIDE RECORDS SUMMARY | 2023-08-02 08:36 | XMS_ITS | Continuity of Care Document ---
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 Start Date: 10/13/21 Status: Ordered amLODIPine 10 mg oral tablet 1 tablet, By Mouth, Daily, # 90 tablet, 1 Refills, Maintenance, 01/25/23 22:10:00 EST, [facility] STORE [facility]39, 157.48, cm, 11/17/22 16:49:00 EDT, Height, 111, kg, 06/10/21 15:06:00 EDT, Dry Weight Start Date: 01/25/23 Status: Ordered ARIPiprazole 5 mg oral tablet 1, tablet, By Mouth, Daily, TO BE COMBINED WITH THE CITALOPRAM THERAPY., # 90 tablet, Refills 1, Tot. Refills 1, Maintenance, 04/01/23 21:26:00 EST, Route to Pharmacy Electronically, [facility]/pharmacy #2339, 157.48, cm, 11/17/22 16:49:00 EDT, Height, 111,... Start Date: 04/01/23 Status: Ordered aspirin 81 mg oral delayed release tablet 81 mg, By Mouth, Daily, # 30 tablet, Refills 11, Tot. Refills 11, Maintenance, 06/12/21 9:27:00 EDT, Route to Pharmacy Electronically, [facility], Partial fill upon patient request if the prescription is for a schedule II opioid drug., 1... Start Date: 06/12/21 Stop Date: 06/07/22 Status: Ordered Ativan 0.5 mg oral tablet 1 tablet = 0.5 mg, By Mouth, Daily at bedtime, PRN as needed for anxiety, # 30 tablet, 5 Refills, Maintenance, 12/04/22 15:42:00 EDT, Tablet, [facility]/pharmacy #2339, Partial fill upon patient request if the prescription is for a schedule II opioid drug.,... Start Date: 12/04/22 Status: Ordered atorvastatin 80 mg oral tablet 1 tablet, By Mouth, Daily at bedtime, # 90 tablet, 1 Refills, Maintenance, 10/12/22 12:22:00 EDT, [facility], 157.48, cm, 08/28/22 9:39:00 EDT, Height, 111, [...] Refills, Maintenance, 11/25/22 22:48:00 EDT, [facility], 157.48, cm, 11/17/22 16:49:00 EDT, Height, 111, [...] # 90 tablet, 1 Refills, [facility], 90, TAKE 1 TABLET BY MOUTH EVERY [...] each, 11 Refills, Maintenance, 07/08/22 11:55:00 EDT, [facility] 51593, 30, INHALE 2 PUFFS TWICE A DAY, 157.48, cm, 05/18/22 9:48:00 EST, Height, 111, kg, 06/10/21 15:06:00 EDT, Dry Weight Start Date: 07/08/22 Status: Ordered Entresto 24 mg-26 mg oral tablet 1 tablet, By Mouth, 2 times a day, # 60 tablet, 11 Refills, Maintenance, 09/21/22 14:36:00 EDT, [facility], 30, TAKE 1 TABLET BY MOUTH TWICE A DAY, 157.48, cm, 08/28/22 9:39:00 EDT, Height, 111,kg, 06/10/21 15:06:00 EDT, Dry Weight Start Date: 09/21/22 Status: Ordered Entresto 24 mg-26 mg oral tablet 1 tablet, By Mouth, 2 times a day, # 60 tablet, 11 Refills, [facility] 67[facility], 30, TAKE 1 TABLET BY MOUTH TWICE A DAY, 157.48, cm, 08/12/21 10:44:00 EDT, Height, 111, kg, 06/10/21 15:06:00 EDT, Dry Weight Start Date: 09/18/21 Status: Ordered ferrous sulfate 325 mg oral enteric coated tablet 1, tablet, By Mouth, 2 times a day, # 180 tablet, Refills 1, Maintenance, 07/26/22 7:26:00 EDT, Route to Pharmacy Electronically, [facility] 29604, 157.48, cm, 05/18/22 9:48:00 EST, Height, 111, kg, 06/10/21 15:06:00 EDT, Dry Weight Start Date: 07/26/22 Status: Ordered furosemide 20 mg oral tablet 1, tablet, By Mouth, Daily, # 90 tablet, Refills 1, Maintenance, 12/28/22 9:01:00 EDT, Route to Pharmacy Electronically, [facility] 69090, 157.48, cm, 11/17/22 16:49:00 EDT, Height, 111, kg, 06/10/21 15:06:00 EDT, Dry Weight Start Date: 12/28/22 Status: Ordered furosemide 20 mg oral tablet 1, tablet, By Mouth, Daily, # 90 tablet, Refills 1, Maintenance, 07/02/22 8:00:00 EDT, Route to Pharmacy Electronically, [facility] 06262, 157.48, cm, 05/18/22 9:48:00 EST, Height, 111, kg, 06/10/21 15:06:00 EDT, Dry Weight Start Date: 07/02/22 Status: Ordered furosemide 20 mg oral tablet 1, tablet, By Mouth, Daily, # 30 tablet, Refills 5, Maintenance, 12/30/21 15:04:00 EDT, Route to Pharmacy Electronically, [facility] 17584, 157.48, cm, 11/04/21 11:33:00 EDT, Height, 111, kg, 06/10/2214:06:00 EDT, Dry Weight Start Date: 12/30/21 Status: Ordered Metoprolol Succinate ER 100 mg oral tablet, extended release 1.5 tablet = 150 mg, By Mouth, Daily, # 135 tablet, 3 Refills, Maintenance, 10/12/22 15:26:00 EDT, XL Tablet, [facility]/pharmacy #2337, Partial fill upon patient request if the [...] tablet, 0 Refills, Maintenance, 01/25/23 22:13:00 EST, [facility] 61329, 157.48, cm, 11/17/22 16:49:00 EDT, Height, 111, kg, 0... Start Date: 01/25/23 Status: Ordered spironolactone 25 mg oral tablet 0.5, tablet, By Mouth, Daily, # 45 tablet, Refills 1, Maintenance, 05/21/22 10:15:00 EST, Route to Pharmacy Electronically, [facility] 92788, 157.48, cm, 05/18/22 9:48:00 EST, Height, 111, [...] 06/14/23 8:54:00 EDT, 04/19/23 8:54:00 EST, Solution, [facility]/pharmacy #2339, Partial fill upon patient request if the prescription... Start Date: 04/19/23 Stop Date: 06/14/23 Status: Ordered Problem List Condition Confirmation Course Effective Dates Status H ealth Status Informant Asthma Confirmed Active Atrial fibrillation Confirmed Active Back pain 1 Confirmed Active Cardiomyopathy Confirmed Active Major depression, chronic Confirmed Active CHF (congestive heart failure) ([id number]% on echo 2019) Confirmed Active Coronary artery [...] Care Nurse Name: Nichole Coates RN Position: [facility] SN RN Member Role: Primary Care Nurse Name: Ksenia Herzog RN Position: [facility] RN Member Role: Primary Care Nurse Name: Leatha Walsh RN Position: [facility] SN RN Member Role: Primary Care Nurse Name: Milagro Sims RN Position: [facility] AMB Nurse Member Role: Primary Care Nurse Name: Jo Ann Stubbs PharmD Position: [facility] Associate Professional Member Role: [employer] Consult[employer] Provider Address: Address: [address] [place] [address]- Name: Anne Gonzalez RN Position: [facility] RN Member Role: Primary Care Nurse Name: Mckayla Wilcox RN Position: [facility] SN RN Member Role: Primary Care Nurse Name: Simin Chen RN Position: [facility] RN Member Role: Primary Care Nurse Name: Jose Martinez MD Position: [facility] Physician - Primary Care Member Role: PCP Address: Address: [address] [place] [id number]- [place] Name: Aleks Merchant RN Position: [facility] RN Member Role: Primary Care Nurse Name: Genet Bowman RN Position: [facility] SN RN Member Role: Primary Care Nurse Name: Ilana Burns RN Position: [facility] RN Member Role: Primary Care Nurse Care Team Related Persons Name: TUTU ROWLAND Address: [address] [place] [address] Name: JANET CONNOR Address: [address] [place] [address]
--- OUTSIDE RECORDS SUMMARY | 2023-08-02 08:36 | XMS_ITS | Continuity of Care Document ---
Author Organization [facility] Address [address] [place] [address]- Care Team Providers Care Sales Operations Name Role Phone Jose Martinez MD Primary Care Physician [phone] Encounter [facility] [place] Date(s): 01/11/19 - 05/11/19 [facility] [address] [place] [address]- 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 Refills 0, Maintenance, 08/04/17 9:05:52 EDT, Route to Pharmacy Electronically, [id number], [facility] Start Date: 08/04/17 Status: Ordered Ativan 0.5 mg oral tablet 1 tablet = 0.5 mg, By Mouth, 3 times a day, PRN anxiety, # 90 tablet, 2 Refills, Maintenance, 03/20/19 16:41:00 EST, Tablet, [facility]/pharmacy #2339, 157, cm, 01/13/19 9:10:00 EDT, Height, 104, kg, 08/03/17 12:54:00 EDT, Dry Weight Start Date: 03/20/19 Status: Ordered atorvastatin 40 mg oral tablet 1 tablet = 40 mg, By Mouth, Daily, # 30 tablet, 5 Refills, Maintenance, 03/20/19 15:53:00 EST, Tablet, [facility]/pharmacy #2339, 157, cm, 01/13/19 9:10:00 EDT, Height, 104, kg, 08/03/17 12:54:00 EDT, Dry Weight Start Date: 03/20/19 Status: Ordered CeleXA 40 mg oral tablet 1, tablet, By Mouth, Daily, # 90 tablet, Refills 1, Tot. Refills 1, Maintenance, 03/20/19 16:10:00 EST, Route to Pharmacy Electronically, [facility]/pharmacy #2339, 157, cm, 01/13/19 9:10:00 EDT, Height, [...] months, # 28 tablet, 0 Refills, Maintenance, 05/10/19 16:13:00 EST, Tablet, [facility], parital fill upon patient request, 157, cm, 04/21/19 10:... Start Date: 05/10/19 Status: Ordered Eliquis 5 mg oral tablet [...] months, # 84 tablet, 0 Refills, Maintenance, 05/10/19 16:13:00 EST, [facility], may fill for less, 157, cm, 04/21/19 10:26:00 EST, Height, 104, kg, 08/03/17 12... Start Date: 05/10/19 Stop Date: 06/07/19 Status: Ordered Multivitamin Daily, 0 Refills, Maintenance, 05/25/16 13:36:30 Start Date: 05/25/16 Status: Ordered Narcan 4 mg/0.1 mL nasal spray See Instructions, use for signs of respiratory distress may repeat every 2 to 3 minutes until patient responds, # 2 each, 0 Refills, Soft Stop, 05/10/19 16:02:00 EST, [facility]/pharmacy #2339, 157, cm, 04/21/19 10:26:00 EST, Height, 104, kg, 08/03/17 12:... Start Date: 05/10/19 Status: Ordered [facility] use with inhaler [facility] use with inhaler, See [...] 14:55:12 EDT, Aerosol, Route to Pharmacy Electronically, [id number], [facility]/pharmacy #2339 Start Date: 10/28/18 Status: Ordered Ventolin [...]
--- OUTSIDE RECORDS SUMMARY | 2023-08-02 08:36 | XMS_ITS | Continuity of Care Document ---
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 Refills 0, Maintenance, 05/19/19 14:39:00 EST, [facility] 157, cm, 04/21/19 10:26:00 EST, [...] 08/04/17 9:05:52 EDT, Route to Pharmacy Electronically, [id number], [facility] Start Date: 08/04/17 Status: Ordered Ativan 0.5 mg oral tablet 1 tablet = 0.5 mg, By Mouth, 3 times a day, PRN anxiety, # 90 tablet, 2 Refills, Maintenance, 03/20/19 16:41:00 EST, Tablet, [facility]/pharmacy #2339, 157, cm, 01/13/19 9:10:00 EDT, Height, 104, kg, 08/03/17 12:54:00 EDT, Dry Weight Start Date: 03/20/19 Status: Ordered atorvastatin 40 mg oral tablet 1 tablet = 40 mg, By Mouth, Daily, # 30 tablet, 5 Refills, Maintenance, 03/20/19 15:53:00 EST, Tablet, [facility]/pharmacy #2339, 157, cm, 01/13/19 9:10:00 EDT, Height, 104, kg, 08/03/17 12:54:00 EDT, Dry Weight Start Date: 03/20/19 Status: Ordered CeleXA 40 mg oral tablet 1, tablet, By Mouth, Daily, # 90 tablet, Refills 1, Tot. Refills 1, Maintenance, 03/20/19 16:10:00 EST, Route to Pharmacy Electronically, [facility]/pharmacy #2339, 157, cm, 01/13/19 9:10:00 EDT, [...] 0 Refills, Maintenance, 05/10/19 16:13:00 EST, Tablet, [facility]/pharmacy #2339, parital [...] tablet, 0 Refills, Maintenance, 05/19/19 15:26:00 EST, [facility]/pharmacy #2339, parital fill upon patient request, 157, cm, ... Start Date: 05/19/19 Stop Date: 06/18/19 Status: Ordered morphine 30 mg/8 to 12 hr oral tablet, extended release 1 tablet = 30 mg, By Mouth, 3 times a day, OPIATE AGREEMENT evaluated every 3 to 6 months, # 84 tablet, 0 Refills, Maintenance, 05/10/19 16:13:00 EST, [facility]/pharmacy #2339, may fill for less, 157, [...] 0 Refills, Soft Stop, 05/10/19 16:02:00 EST, [facility]/pharmacy #2339, 157, cm, 04/21/19 10:26:00 EST, Height, 104, kg, 08/03/17 12:... Start Date: 05/10/19 Status: Ordered [employer] [facility] use with inhaler [email or web address] use with inhaler, See Instructions, # [...] 14:55:12 EDT, Aerosol, Route to Pharmacy Electronically, [id number], [facility]/pharmacy #2339 Start Date: 10/28/18 Status: Ordered [...]
--- OUTSIDE RECORDS SUMMARY | 2023-08-02 08:36 | XMS_ITS | Continuity of Care Document ---
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 4Admin Note: [employer] 5Admin Note: [employer],[place] 6Admin Note: Novaritis Medications Abilify 5 mg [...] 05/19/19 14:39:00 EST, Route to Pharmacy Electronically, [facility]/pharmacy #2339, 157, cm, 04/21/19 10:26:00 EST, Height, 104, kg, 08/03/17 12:54:00 EDT, Dry Weight Start Date: 05/19/19 Stop Date: 08/17/19 Status: Ordered amLODIPine 5 mg oral tablet 1 tablet = 5 mg, By Mouth, Daily, # 90 tablet, 1 Refills, Maintenance, 10/12/19 11:34:00 EDT, [facility]/pharmacy #2339, 157, cm, 08/25/19 15:55:00 EDT, Height, Dry Weight Start Date: 10/12/19 Status: Ordered amoxicillin 500 mg oral capsule 4 capsule = 2,000 mg, By Mouth, 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 Refills 0, Maintenance, 08/04/17 9:05:52 EDT, Route to Pharmacy Electronically, [id number], [facility] 3 Start Date: 08/04/17 Status: Ordered Ativan [...] Refills, Maintenance, 10/03/19 13:25:00 EDT, [facility] ST[facility] 22305, 157, cm, 08/25/19 15:55:00 EDT, Height Start [...] tablet, 0 Refills, Maintenance, 11/15/19 16:47:00 EDT, [facility]/pharmacy #2339, parital fill upon patient request, 156.6, [...] Soft Stop, 05/10/19 16:02:00 EST, [facility]/pharmacy #2339, 157, cm, 04/21/19 10:26:00 EST, Height, 104, kg, 08/03/17 12:... Start Date: 05/10/19 Status: Ordered Nicoderm C-Q 21 mg/24 hr transdermal film, extended release 1 patch, Topically, Daily, # 30 patch, 3 Refills, Maintenance, 08/25/19 16:23:00 EDT, Patch, [facility]/pharmacy #2339, 157, cm, 08/25/19 15:55:00 EDT, Height Start Date: 08/25/19 Status: Ordered [facility] use with inhaler [facility] use with inhaler, See Instructions, [...] 14:55:12 EDT, Aerosol, Route to Pharmacy Electronically, [id number], [facility]/pharmacy #2339 Start Date: 10/28/18 Status: Ordered spacer [...] 10/23/19 15:22:00 EDT, Route to Pharmacy Electronically, [facility]/pharmacy #2339, 156.5, cm, 10/20/19 16:01:00 EDT, Height Start Date: 10/23/19 Status: Ordered torsemide 5 mg oral tablet 1 tablet = 5 mg, By Mouth, Daily, # 30 tablet, 11 Refills, Maintenance, 10/20/19 16:34:00 EDT, [facility]/pharmacy #2339, 156.5, cm, 10/20/19 16:01:00 EDT, Height [...]
--- OUTSIDE RECORDS SUMMARY | 2023-08-02 08:37 | XMS_ITS | Continuity of Care Document ---
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 Refills 11, Maintenance, 07/31/19 14:19:00 EDT, Route to Pharmacy Electronically, [facility]/pharmacy #2339, 157, cm, 07/31/19 13:53:00 EDT, Height, 1... Start Date: 07/31/19 Status: Ordered amLODIPine 5 mg oral tablet 5 mg, 1, tablet, By Mouth, Daily, # 90 tablet, Refills 0, Tot. 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 Refills 0, Maintenance, 08/04/17 9:05:52 EDT, Route to Pharmacy Electronically, [id number], [facility] 3 Start Date: 08/04/17 Status: Ordered [...] tablet, 1 Refills, Maintenance, 10/03/19 13:25:00 EDT, [facility] STORE 56784, 157, cm, 08/25/19 15:55:00 EDT, Height Start [...] tablet, 0 Refills, Maintenance, 10/10/19 14:02:00 EDT, [facility]/pharmacy #2339, parital fill upon patient request, 157, cm, ... Start Date: 10/10/19 Stop Date: 11/09/19 Status: Ordered morphine 30 mg/8 to 12 hr oral tablet, extended release 1 tablet = 30 mg, By Mouth, 3 times a day, OPIATE AGREEMENT evaluated every 3 to 6 months, # 84 tablet, 0 Refills, Maintenance, 10/10/19 14:02:00 EDT, [facility]/pharmacy #2339, may fill for less, 157, cm, [...] 0 Refills, Soft Stop, 05/10/19 16:02:00 EST, [facility]/pharmacy #2339, 157, cm, 04/21/19 10:26:00 EST, Height, 104, kg, 08/03/17 12:... Start Date: 05/10/19 Status: Ordered Nicoderm C-Q 21 mg/24 hr transdermal film, extended release 1 patch, Topically, Daily, # 30 patch, 3 Refills, Maintenance, 08/25/19 16:23:00 EDT, Patch, [facility]/pharmacy #2339, 157, cm, 08/25/19 15:55:00 EDT, Height Start Date: 08/25/19 Status: Ordered [facility] use with inhaler [facility] use with inhaler, See Instructions, [...] 14:55:12 EDT, Aerosol, Route to Pharmacy Electronically, [id number], [facility]/pharmacy #2339 Start Date: 10/28/18 Status: Ordered spacer [...] 10/23/19 15:22:00 EDT, Route to Pharmacy Electronically, [facility]/pharmacy #2339, 156.5, cm, 10/20/19 16:01:00 EDT, Height Start Date: 10/23/19 Status: Ordered torsemide 5 mg oral tablet 1 tablet = 5 mg, By Mouth, Daily, # 30 tablet, 11 Refills, Maintenance, 10/20/19 16:34:00 EDT, [facility]/pharmacy #2339, 156.5, cm, 10/20/19 16:01:00 EDT, Height [...]
--- OUTSIDE RECORDS SUMMARY | 2023-08-02 08:37 | XMS_ITS | Continuity of Care Document ---
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 5Admin Note: [facility] 6Admin Note: [employer],[place] 7Admin Note: Novaritis Medications ARIPiprazole 5 mg oral tablet 1, tablet, By Mouth, Daily, TO BE COMBINED WITH THE CITALOPRAM THERAPY, # 90 tablet, Refills 1, Route to Pharmacy Electronically, [facility], 162.5, cm, 12/27/20 14:39:00 EDT, Height, 103, kg, 04/10/20 11:20:00 EST, Dry Weight Start Date: 01/16/21 Status: Ordered Ativan 0.5 mg oral tablet 1 tablet = 0.5 mg, By Mouth, 3 times a day, PRN anxiety, # 90 tablet, 2 Refills, Maintenance, 10/14/20 13:39:00 EDT, Tablet, [facility]/pharmacy #[id number], 162.5, cm, 05/15/20 10:27:00 EST, Height, 103, kg, 04/10/20 11:20:00 EST, Dry Weight Start Date: 10/14/20 Status: Ordered atorvastatin 40 mg oral tablet 1 tablet = 40 mg, By Mouth, Daily, # 90 tablet, 1 Refills, Maintenance, 11/16/19 10:37:00 EDT, Tablet, [facility]/pharmacy #2339, 156.6, cm, 10/23/19 15:34:00 EDT, Height, Dry Weight Start Date: 11/16/19 Status: Ordered citalopram 40 mg oral tablet 1 tablet, By Mouth, Daily, # 90 tablet, 1 Refills, Maintenance, 10/28/20 14:21:00 EDT, [facility]/pharmacy#2339, 162.5, cm, 05/15/20 10:27:00 EST, Height, 103, [...] 0 Refills, Maintenance, 01/15/21 17:11:00 EDT, Tablet, [facility]/pharmacy #[id number], parital fill upon patient request, 162.5, cm, 12/27/20 1... Start Date: 01/15/21 Status: Ordered Dulera 100 mcg-5 mcg/inh inhalation aerosol 2 puffs, Inhalation, 2 times a day, # 13 Unknown, 11 Refills, Maintenance, 07/22/20 7:52:00 EDT, [facility], 30, INHALE 2 PUFFS TWICE A DAY, 162.5, cm, 05/15/20 10:27:00 EST, Height, 103, kg, 04/10/20 11:20:00 EST, Dry Weight Start Date: 07/22/20 Status: Ordered ferrous sulfate 325 mg oral enteric coated tablet 1, tablet, By Mouth, 2 times a day, # 180 tablet, Refills 1, Tot. Refills 0, Maintenance, 10/17/20 7:27:00 EDT, Route to Pharmacy Electronically, [facility], 162.5, cm, 05/15/20 10:27:00 EST, Height, 103, kg, 04/10/20 11:20:00 EST, Dry Weight Start Date: 10/17/20 Status: Ordered lisinopril 10 mg oral tablet 1, tablet, By Mouth, Daily, # 90 tablet, Refills 3, Route to Pharmacy Electronically, [facility]672, 162.5, cm, 05/15/20 10:27:00 EST, Height, 103, kg, 04/10/20 11:20:00 EST, Dry Weight Start Date: 11/13/20 Status: Ordered Metoprolol Succinate ER 25 mg oral tablet, extended release 1 tablet, By Mouth, Daily, # 90 tablet, 1 Refills, Maintenance, 07/22/20 7:32:00 EDT, [facility], 162.5, cm, 05/15/20 10:27:00 EST, Height, 103, kg, 04/10/20 11:20:00 EST, Dry Weight Start Date: 07/22/20 Status: Ordered morphine 15 mg/8 to 12 hr oral tablet, extended release 1 tablet = 15 mg, By Mouth, Every 8 hours, PRN Pain , Moderate, On substance agreement evaluated every 3 to 6 months, # 90 tablet, 0 Refills, Maintenance, 01/15/21 17:11:00 EDT, [facility]/pharmacy #[id number], parital fill upon patient request, 162.5, cm, 12/27... Start Date: 01/15/21 Stop Date: 02/14/21 Status: Ordered morphine 30 mg/8 to 12 hr oral tablet, extended release 1 tablet = 30 mg, By Mouth, 3 times a day, OPIATE AGREEMENT evaluated every 3 to 6 months, # 84 tablet, 0 Refills, Maintenance, 01/15/21 17:11:00 EDT, [facility]/pharmacy #2339, may fill for less, 162.5, cm, 12/27/20 14:39:00 EDT, Height, 103, kg, 04/10/20... Start Date: 01/15/21 Stop Date: 02/12/21 Status: Ordered Multivitamin Daily, 0 Refills, Maintenance, 05/25/16 13:36:30 Start Date: 05/25/16 Status: Ordered Nicoderm C-Q 21 mg/24 hr transdermal film, extended release 1 patch, Topically, Daily, # 30 patch, 3 Refills, Maintenance, 08/25/19 16:23:00 EDT, Patch, [facility]/pharmacy #2339, 157, cm, 08/25/19 15:55:00 EDT, Height Start Date: 08/25/19 Status: Ordered [employer] [facility] use with inhal[facility], See Instructions, # [...] Refills, Maintenance, 10/17/20 12:35:00 EDT, [facility], 162.5, cm, 05/15/20 10:27:00 EST, Height, 103, [...] tablet, 1 Refills, Maintenance, 09/02/20 8:48:00 EDT, [facility], 162.5, cm, 05/15/20 10:27:00 EST, Height, 103, kg, 04/10/20 11:20:00 EST, Dry Weight Start Date: 09/02/20 Status: Ordered Problem List Condition Effective Dates Status Health Status Inform ant Asthma(Confirmed) Active Atrial fibrillation(Confirmed) Active Back pain(Confirmed) 1 Active Major depression, chronic(Confirmed) Active CHF (congestive heart failur e) (SGOO89-28% on echo 2019)(Confirmed) Active Continuous opioid dependence(Confirmed) [...]
--- OUTSIDE RECORDS SUMMARY | 2023-08-02 08:37 | XMS_ITS | Continuity of Care Document ---
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 6Admin Note: [employer],[place] 7Admin Note: Novaritis Medications ARIPiprazole 5 mg [...] 06/12/21 9:27:00 EDT, Route to Pharmacy Electronically, [facility], Partial fill upon patient request if [...] 0 Refills, Maintenance, 08/12/21 11:05:00 EDT, Tablet, [facility]/pharmacy #2339, Partial fill [...] of lasix that day and call your geospatial applications developer's office for a... Start Date: 06/12/21 Status: Ordered Lipitor 80 mg oral tablet 1 tablet = 80 mg, By Mouth, Daily at bedtime, # 30 tablet, 11 Refills, Maintenance, 06/12/21 9:27:00 EDT, Tablet, [facility], Partial fill upon [...] 07/25/21 8:35:00 EDT, Route to Pharmacy Electronically, [facility]/pharmacy #2339, Partial fill upon patient request... Start Date: 07/25/21 Status: Ordered Metoprolol Succinate ER 25 mg oral tablet, extended release 1 tablet, By Mouth, Daily, take in addition to 50mg tab, total 75mg daily, # 30 tablet, 6 Refills, Maintenance, 07/25/21 8:35:00 EDT, [facility]/pharmacy #2339, 157.48, cm, 07/01/21 11:10:00 EDT, Height, 111, kg, 06/10/21 15:06:00 EDT, Dry Weight Start Date: 07/25/21 Status: Ordered morphine 15 mg/8 to 12 hr oral tablet, extended release 1 tablet = 15 mg, By Mouth, Every 8 hours, PRN Pain , Moderate, On substance agreement evaluated every 3 to 6 months, # 84 tablet, 0 Refills, Maintenance, 06/25/21 16:52:00 EDT, [facility]/pharmacy #2339, parital fill upon [...] 0 Refills, Maintenance, 06/12/21 9:27:00 EDT, Tablet, [facility], Partial fill upon patient request if the prescription is for a... Start Date: 06/12/21 Status: Ordered Problem List Condition Effective Dates Status Health Status Inform ant Asthma(Confirmed) Active Atrial fibrillation(Confirmed) Active Back pain(Confirmed) 1 Active Major depression, chronic(Confirmed) Active CHF (congestive heart failur e) (RSLS88-69% on 2019)(Confirmed) Active Continuous opioid dependence(Confirmed) Active [...] Dates Health Status Cl inical Service Informant Restless leg syndrome Discharge Diagnosis 08/05/21 CHF (congestive heart failure) (BEEV60-61% on echo 2019) Discharge Diagnosis 08/05/21 Vital Signs Most recent to oldest [Reference Range]: 1 Height 157.48 cm (08/05/21 2:31 PM) Weight 117.1 kg (08/05/21 2:31 PM) Oxygen Saturation [94-100 %] 98 % (08/05/21 2:31 PM) Pulse Rate [55-90 bpm] 69 bpm (08/05/21 2:31 PM) Body Mass Index [18.5-24.99] 47.22 *>HHI* (08/05/21 2:31 PM) Blood Pressure [90-138/55-84 mm Hg] 116/ 72mm Hg (08/05/21 2:31 PM) Blood pressure sites Arm, left (08/05/21 2:31 PM) Social History Social History Type Response Smoking Status 5-9 cigarettes (betw een 1/4 to 1/2 pack)/day in last 30 days; Other: Started at 23 years old; entered on: 01/18/20 Sex
--- OUTSIDE RECORDS SUMMARY | 2023-08-02 08:37 | XMS_ITS | Continuity of Care Document ---
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 Refills 11, Maintenance, 07/31/19 14:19:00 EDT, Route to Pharmacy Electronically, [facility]/pharmacy #[id number], 157, cm, 07/31/19 13:53:00 EDT, Height, 1... Start Date: 07/31/19 Status: Ordered Ativan 0.5 mg oral tablet 1 tablet = 0.5 mg, By Mouth, 3 times a day, PRN anxiety, # 90 tablet, 2 Refills, Maintenance, 02/26/20 20:28:00 EST, [facility], cm, 01/26/20 9:40:00 EST, Height, 104, kg, 01/19/20 3:57:00 EDT, Dry Weight Start Date: 02/26/20 Status: Ordered atorvastatin 40 mg oral tablet 1 tablet = 40 mg, By Mouth, Daily, # 90 tablet, 1 Refills, Maintenance, 11/16/19 10:37:00 EDT, Tablet, [facility]/pharmacy #2339, 156.6, cm, 10/23/19 15:34:00 EDT, Height, Dry Weight Start Date: 11/16/19 Status: Ordered citalopram 40 mg oral tablet 1 tablet, By Mouth, Daily, # 90 tablet, 1 Refills, Maintenance, 04/04/20 11:03:00 EST, [facility]/pharmacy#2339, 162.5, cm, 04/03/20 11:38:00 EST, Height, [...] 0 Refills, Maintenance, 04/30/20 17:05:00 EST, Tablet, [facility]/pharmacy #2339, parital fill upon patient request, 162.5, cm, 04/10/20 1... Start Date: 04/30/20 Status: Ordered Dulera 100 mcg-5 mcg/inh inhalation aerosol 2 puffs, Inhalation, 2 times a day, # 1 each, 11 Refills, Maintenance, 07/31/19 14:15:00 EDT, Aerosol, [facility]/pharmacy #2339, 2 puffs Inhalation 2 times a day, 157, cm, 07/31/19 13:53:00 EDT, Height, 104, kg, 08/03/17 12:54:00 EDT, Dry Weight Start Date: 07/31/19 Status: Ordered ferrous sulfate 325 mg oral enteric coated tablet 325 mg, By Mouth, 2 times a day, # 60 tablet, Refills 5, Tot. Refills 5, Maintenance, 04/17/20 10:12:00 EST, Route to Pharmacy Electronically, [facility]/pharmacy #2339, 162.5, cm, 04/10/20 11:20:00 EST, Height, 103, kg, 04/10/20 11:20:00 EST, Dry Weight Start Date: 04/17/20 Status: Ordered Lasix 40 mg oral tablet 40 mg, 1, tablet, By Mouth, Daily, # 30 tablet, Refills 5, Tot. Refills 5, Maintenance, 03/11/20 13:11:00 EST, Route to Pharmacy Electronically, [facility]/pharmacy #2339, 160, cm, 02/28/20 10:28:00 EST, Height, 104, kg, 01/19/20 3:57:00 EDT, Dry Weight Start Date: 03/11/20 Status: Ordered lisinopril 10 mg oral tablet 10 mg, 1, tablet, By Mouth, Daily, # 90 tablet, Refills 0, Tot. Refills 0, Maintenance, 02/26/20 14:41:00 EST, [facility] Partial fill upon [...] tablet, 0 Refills, Maintenance, 04/30/20 17:05:00 EST, [facility]/pharmacy #2339, parital fill upon patient request, 162.5, cm, 04/10... Start Date: 04/30/20 Stop Date: 05/30/20 Status: Ordered morphine 30 mg/8 to 12 hr oral tablet, extended release 1 tablet = 30 mg, By Mouth, 3 times a day, OPIATE AGREEMENT evaluated every 3 to 6 months, # 84 tablet, 0 Refills, Maintenance, 04/30/20 17:05:00 EST, [facility]/pharmacy #2339, may fill for less, 162.5, cm, 04/10/20 11:20:00 EST, Height, 103, kg, 04/10/20... Start Date: 04/30/20 Stop Date: 05/28/20 Status: Ordered Multivitamin Daily, 0 Refills, Maintenance, 05/25/16 13:36:30 Start Date: 05/25/16 Status: Ordered Nicoderm C-Q 21 mg/24 hr transdermal film, extended release 1 patch, Topically, Daily, # 30 patch, 3 Refills, Maintenance, 08/25/19 16:23:00 EDT, Patch, [facility]/pharmacy #2339, 157, cm, 08/25/19 15:55:00 EDT, Height Start Date: 08/25/19 Status: Ordered [facility]er [facility] use with inhaler, See Instructions, [...] 01/22/20 9:08:00 EST, Route to Pharmacy Electronically, [facility]/pharmacy #2339, 160, cm, 01/22/20 7:53:00 EST, Height, 104, kg, 01/19/20 3:57:00 EDT, Dry Weight Start Date: 01/22/20 Stop Date: 07/20/20 Status: Ordered Ventolin HFA 108 mcg/inh inhalation aerosol with adapter 2 puffs, Inhalation, 4 times a day, PRN for wheezing, # 8 Gm, 5 Refills, Maintenance, 12/20/19 11:27:00 EDT, Aerosol, [facility]/pharmacy #2339, 156.6, cm, 10/23/19 15:34:00 EDT, Height Start Date: 12/20/19 Status: Ordered warfarin 5 mg oral tablet 0.5 tablet = 2.5 mg, By Mouth, Daily at bedtime, 5mg tablet on Fridays, # 30 tablet, 5 Refills, Maintenance, 02/26/20 12:12:00 EST, Tablet, [facility]/pharmacy #2339, 160, cm, 01/26/20 9:40:00 EST, [...]
--- OUTSIDE RECORDS SUMMARY | 2023-08-02 08:37 | XMS_ITS | Continuity of Care Document ---
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 no contraindications per patient 5Admin Note: [facility] [facility] 6Admin Note: [employer],[place] 7Admin Note: Novaritis Medications ARIPiprazole 5 mg oral tablet 1, tablet, By Mouth, Daily, TO BE COMBINED WITH THE CITALOPRAM THERAPY, # 90 tablet, Refills 1, Route to Pharmacy Electronically, [facility], 162.5, cm, 12/27/20 14:39:00 EDT, Height, 103, kg, 04/10/20 11:20:00 EST, Dry Weight Start Date: 01/16/21 Status: Ordered Ativan 0.5 mg oral tablet 1 tablet = 0.5 mg, By Mouth, 3 times a day, PRN anxiety, # 90 tablet, 2 Refills, Maintenance, 02/24/21 14:29:00 EST, Tablet, [facility]/pharmacy #2339, 162.5, cm, 01/29/21 12:38:00 EST, Height, 103, kg, 04/10/20 11:20:00 EST, Dry Weight Start Date: 02/24/21 Status: Ordered atorvastatin 40 mg oral tablet 1 tablet = 40 mg, By Mouth, Daily, # 90 tablet, 1 Refills, Maintenance, 11/16/19 10:37:00 EDT, Tablet, [facility]/pharmacy #2339, 156.6, cm, 10/23/19 15:34:00 EDT, Height, Dry Weight Start Date: 11/16/19 Status: Ordered citalopram 40 mg oral tablet 1 tablet, By Mouth, Daily, # 90 tablet, 1 Refills, [facility], 162.5, cm, 01/29/21 12:38:00 EST, Height, 103, [...] 0 Refills, Maintenance, 04/02/21 12:29:00 EST, Tablet, [facility]/pharmacy #2339, parital fill upon patient request, 162.5, cm, 01/29/21 1... Start Date: 04/02/21 Status: Ordered Dulera 100 mcg-5 mcg/inh inhalation aerosol 2 puffs, Inhalation, 2 times a day, # 13 each, 11 Refills, [facility], 30, INHALE 2 PUFFS TWICE A DAY, 162.5, cm, 01/29/21 12:38:00 EST, Height, 103, kg, 04/10/20 11:20:00 EST, Dry Weight Start Date: 04/08/21 Status: Ordered ferrous sulfate 325 mg oral enteric coated tablet 1, tablet, By Mouth, 2 times a day, # 180 tablet, Refills 1, Route to Pharmacy Electronically, [facility]16, 162.5, cm, 01/29/21 12:38:00 EST, Height, 103, kg, 04/10/20 11:20:00 EST, Dry Weight Start Date: 04/07/21 Status: Ordered lisinopril 10 mg oral tablet 1, tablet, By Mouth, Daily, # 90 tablet, Refills 3, Route to Pharmacy Electronically, [facility] [address]478, 162.5, cm, 05/15/20 10:27:00 EST, Height, 103, [...] tablet, 0 Refills, Maintenance, 04/02/21 12:29:00 EST, [facility]/pharmacy #2339, parital fill upon patient request, 162.5, cm, 01/29... Start Date: 04/02/21 Stop Date: 05/02/21 Status: Ordered morphine 30 mg/8 to 12 hr oral tablet, extended release 1 tablet = 30 mg, By Mouth, 3 times a day, OPIATE AGREEMENT evaluated every 3 to 6 months, # 84 tablet, 0 Refills, Maintenance, 04/02/21 12:29:00 EST, [facility]/pharmacy #2339, may fill for less, 162.5, cm, 01/29/21 12:38:00 EST, Height, 103, kg, 04/10/20... Start Date: 04/02/21 Stop Date: 04/30/21 Status: Ordered Multivitamin Daily, 0 Refills, Maintenance, 05/25/16 13:36:30 Start Date: 05/25/16 Status: Ordered Nicoderm C-Q 21 mg/24 hr transdermal film, extended release 1 patch, Topically, Daily, # 30 patch, 3 Refills, Maintenance, 08/25/19 16:23:00 EDT, Patch, [facility]/pharmacy #2339, 157, cm, 08/25/19 15:55:00 EDT, Height Start Date: 08/25/19 Status: Ordered [employer] [facility] use with inhaler [facility] use with inhaler, See Instructions, [...] each, 1 Refills, Physician Stop, [facility], 162.5, cm, 01/29/21 12:38:00 EST, Height, 103, kg, 04/10/20 11:20:00 EST, Dry Weight Start Date: 04/07/21 Stop Date: 07/06/21 Status: Ordered warfarin 5 mg oral tablet 1 tablet, By Mouth, Daily, # 90 tablet, 1 Refills, [facility], 162.5, cm, 01/29/21 12:38:00 EST, Height, 103, kg, 04/10/20 11:20:00 EST, Dry Weight Start Date: 03/03/21 Status: Ordered Problem List Condition Effective Dates Status Health Status Inform ant Asthma(Confirmed) Active Atrial fibrillation(Confirmed) Active Back pain(Confirmed) 1 Active Major depression, chronic(Confirmed) Active CHF (congestive heart failur e) (ISZG82-15% on echo 2019)(Confirmed) Active Continuous opioid dependence(Confirmed) [...]
--- OUTSIDE RECORDS SUMMARY | 2023-08-02 08:37 | XMS_ITS | Continuity of Care Document ---
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 no contraindications per patient 4Admin Note: [employer] 5Admin Note: Boostrix/Rixensart,[place] 6Admin Note: Novaritis Medications Abilify 5 mg oral tablet 5 mg, 1, tablet, By Mouth, Daily, to be combined with the citalopram therapy, # 30 tablet, Refills 11, Tot. Refills 11, Maintenance, 07/31/19 14:19:00 EDT, [id number], cm, 07/31/19 13:53:00 EDT, Height, 1... Start Date: 07/31/19 Status: Ordered amLODIPine 5 mg oral tablet 5 mg, 1, tablet, By Mouth, Daily, # 90 tablet, Refills 0, Tot. Refills 0, Maintenance, 05/19/19 14:39:00 EST, [id number], [facility], cm, 04/21/19 10:26:00 EST, Height, 104, kg, 08/03/17 12:54:00 EDT, Dry Weight Start Date: 05/19/19 Stop Date: 08/17/19 Status: Ordered amLODIPine 5 mg oral tablet 1 tablet = 5 mg, By Mouth, Daily, # 90 tablet, 0 Refills, Maintenance, 07/25/19 9:54:00 EDT, [id number], [facility], cm, 04/21/19 10:26:00 EST, Height, 104, kg, 08/03/17 12:54:00 EDT, Dry Weight Start Date: 07/25/19 Status: Ordered amoxicillin 500 mg oral capsule 4 capsule = 2,000 mg, By Mouth, 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 Refills 0, Maintenance, 08/04/17 9:05:52 EDT, Route to Pharmacy Electronically, [id number], [facility] 3 Start Date: 08/04/17 Status: Ordered Ativan 0.5 mg oral tablet 1 tablet = 0.5 mg, By Mouth, 3 times a day, PRN anxiety, # 90 tablet, 2 Refills, Maintenance, 07/24/19 17:04:00 EDT, Tablet, [facility]/pharmacy #[id number], 157, cm, 04/21/19 10:26:00 EST, Height, 104, kg, 08/03/17 12:54:00 EDT, Dry Weight Start Date: 07/24/19 Status: Ordered atorvastatin 40 mg oral tablet 1 tablet = 40 mg, By Mouth, Daily, # 30 tablet, 5 Refills, Maintenance, 03/20/19 15:53:00 EST, Tablet, [facility], 157, cm, 01/13/19 9:10:00 EDT, Height, 104, kg, 08/03/17 12:54:00 EDT, Dry Weight Start Date: 03/20/19 Status: Ordered CeleXA 40 mg oral tablet 1, tablet, By Mouth, Daily, # 90 tablet, Refills 1, Tot. Refills 1, Maintenance, 03/20/19 16:10:00 EST, Route to Pharmacy Electronically, [facility]/pharmacy #[id number], 157, cm, 01/13/19 9:10:00 EDT, [...] months, # 28 tablet, 0 Refills, Maintenance, 07/13/19 10:04:00 EDT, Tablet, [id number], parital fill upon patient request, 157, cm, 04/21/19 10:... Start Date: 07/13/19 Status: Ordered Dulera 100 mcg-5 mcg/inh inhalation aerosol 2 puffs, Inhalation, 2 times a day, # 1 each, 11 Refills, Maintenance, 07/31/19 14:15:00 EDT, Aerosol, [facility]/pharmacy #2339, 2 puffs Inhalation 2 times a day, 157, cm, 07/31/19 13:53:00 EDT, Height, 104, kg, 08/03/17 12:54:00 EDT, Dry Weight Start Date: 07/31/19 Status: Ordered Eliquis 5 mg oral tablet [...] months, # 90 tablet, 0 Refills, Maintenance, 08/07/19 16:09:00 EDT, [id number], parital fill upon patient request, 157, cm, ... Start Date: 08/07/19 Stop Date: 09/06/19 Status: Ordered morphine 30 mg/8 to 12 hr oral tablet, extended release 1 tablet = 30 mg, By Mouth, 3 times a day, OPIATE AGREEMENT evaluated every 3 to 6 months, # 84 tablet, 0 Refills, Maintenance, 07/21/19 8:22:00 EDT, [id number], may fill for less, 157, cm, 04/21/19 10:26:00 EST, Height, 104, kg, 08/03/17 12:... Start Date: 07/21/19 Stop Date: 08/18/19 Status: Ordered Multivitamin Daily, 0 Refills, Maintenance, 05/25/16 13:36:30 Start Date: 05/25/16 Status: Ordered Narcan 4 mg/0.1 mL nasal spray See Instructions, use for signs of respiratory distress may repeat every 2 to 3 minutes until patient responds, # 2 each, 0 Refills, Soft Stop, 05/10/19 16:02:00 EST, [facility]/pharmacy #[id number], 157, cm, 04/21/19 10:26:00 EST, Height, 104, kg, 08/03/17 12:... Start Date: 05/10/19 Status: Ordered Nicoderm C-Q 21 mg/24 hr transdermal film, extended release 1 patch, Topically, Daily, # 30 patch, 3 Refills, Maintenance, 08/25/19 16:23:00 EDT, Patch, [facility]/pharmacy #[id number], 157, cm, 08/25/19 15:55:00 EDT, Height Start Date: 08/25/19 Status: Ordered [facility] use with inhaler [facility] use with inhaler, See Instructions, # [...] 14:55:12 EDT, Aerosol, Route to Pharmacy Electronically, [id number], [facility]/pharmacy #2339 Start Date: 10/28/18 Status: Ordered [...] Clinical Service Informant Atrial fibrillation Discharge Diagnosis 08/25/19 Major depression, chronic Discharge Diagnosis 08/25/19 Asthma Discharge Diagnosis 08/25/19 Vital Signs Most recent to oldest [Reference Range]: 1 Height 157.00 cm (08/25/19 3:55 PM) Weight 113.6 kg (08/25/19 3:55 PM) Pulse Rate [55-90 bpm] 95 bpm *H* (08/25/19 3:55 PM) Body Mass Index [18.5-24.99] 46.09 *>HHI* (08/25/19 3:55 PM) Blood Pressure [90-138/55-84 mm Hg] 112/ 70mm Hg (08/25/19 3:55 PM) Blood pressure sites Arm, left (08/25/19 3:55 PM) Social History Social History Type Response Smoking Status Former smoker; Type: Cigarettes; Other: Quit 12/03/14; entered on: 12/10/14 Sex
--- OUTSIDE RECORDS SUMMARY | 2023-08-02 08:37 | XMS_ITS | Continuity of Care Document ---
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 Refills 11, Maintenance, 07/31/19 14:19:00 EDT, [id number], cm, 07/31/19 13:53:00 EDT, Height, 1... Start Date: 07/31/19 Status: Ordered amLODIPine 5 mg oral tablet 5 mg, 1, tablet, By Mouth, Daily, # 90 tablet, Refills 0, Tot. Refills 0, Maintenance, 05/19/19 14:39:00 EST, [facility]ically, [facility], 157, cm, 04/21/19 10:26:00 EST, Height, 104, kg, 08/03/17 12:54:00 EDT, Dry Weight Start Date: 05/19/19 Stop Date: 08/17/19 Status: Ordered amLODIPine 5 mg oral tablet 1 tablet = 5 mg, By Mouth, Daily, # 90 tablet, 0 Refills, Maintenance, 07/25/19 9:54:00 EDT, [facility], 157, cm, 04/21/19 10:26:00 EST, Height, 104, kg, 08/03/17 12:54:00 EDT, Dry Weight Start Date: 07/25/19 Status: Ordered amoxicillin 500 mg oral capsule 4 capsule = 2,000 mg, By Mouth, 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 Refills 0, Maintenance, 08/04/17 9:05:52 EDT, Route to Pharmacy Electronically, [id number], [facility] 3 Start Date: 08/04/17 Status: Ordered Ativan 0.5 mg oral tablet 1 tablet = 0.5 mg, By Mouth, 3 times a day, PRN anxiety, # 90 tablet, 2 Refills, Maintenance, 07/24/19 17:04:00 EDT, Tablet, [facility]/pharmacy #2339, 157, cm, 04/21/19 10:26:00 EST, Height, 104, kg, 08/03/17 12:54:00 EDT, Dry Weight Start Date: 07/24/19 Status: Ordered atorvastatin 40 mg oral tablet 1 tablet = 40 mg, By Mouth, Daily, # 30 tablet, 5 Refills, Maintenance, 03/20/19 15:53:00 EST, Tablet, [facility]/pharmacy #2339, 157, cm, 01/13/19 9:10:00 EDT, Height, 104, kg, 08/03/17 12:54:00 EDT, Dry Weight Start Date: 03/20/19 Status: Ordered CeleXA 40 mg oral tablet 1, tablet, By Mouth, Daily, # 90 tablet, Refills 1, Tot. Refills 1, Maintenance, 03/20/19 16:10:00 EST, Route to Pharmacy Electronically, [facility]/pharmacy #2339, 157, cm, 01/13/19 9:10:00 EDT, Height, 104, kg, 08/03/17 12:54:00 EDT, Dry Weight Start Date: 03/20/19 Stop Date: 09/16/19 Status: Ordered CPAP Machine See Instructions, # 1 each, Maintenance, auto-CPAP10 to 16 cm of H2O with a heated humidifier. dx RPINCESS, 10/17/18 11:44:03 EDT, Compound Start Date: 10/17/18 [...] 0 Refills, Maintenance, 07/13/19 10:04:00 EDT, Tablet, [facility]/pharmacy #[id number], parital fill upon patient request, 157, cm, 04/21/19 10:... Start Date: 07/13/19 Status: Ordered Dulera 100 mcg-5 mcg/inh inhalation aerosol 2 puffs, Inhalation, 2 times a day, # 1 each, 11 Refills, Maintenance, 07/31/19 14:15:00 EDT, Aerosol, [facility]/pharmacy #2339, 2 puffs Inhalation 2 [...] tablet, 0 Refills, Maintenance, 08/07/19 16:09:00 EDT, [facility]/pharmacy #2339, parital fill upon patient request, 157, cm, ... Start Date: 08/07/19 Stop Date: 09/06/19 Status: Ordered morphine 30 mg/8 to 12 hr oral tablet, extended release 1 tablet = 30 mg, By Mouth, 3 times a day, OPIATE AGREEMENT evaluated every 3 to 6 months, # 84 tablet, 0 Refills, Maintenance, 07/21/19 8:22:00 EDT, [facility]/pharmacy #2339, may fill [...] 08/03/17 12:... Start Date: 05/10/19 Status: [facility] use with inhaler [facility] use with inhaler, See Instructions, # [...] 14:55:12 EDT, Aerosol, Route to Pharmacy Electronically, [id number], [facility]/pharmacy #2339 Start Date: 10/28/18 [...]
--- OUTSIDE RECORDS SUMMARY | 2023-08-02 08:37 | XMS_ITS | Continuity of Care Document ---
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 no contraindications per patient 4Admin Note: [employer] 5Admin Note: [employer]art,[place] 6Admin Note: Novaritis Medications amLODIPine 5 mg oral tablet 5 mg, 1, tablet, By Mouth, Daily, # 90 tablet, Refills 1, Tot. 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 Refills 0, Maintenance, 08/04/17 9:05:52 EDT, Route to Pharmacy Electronically, [id number], [facility] 3 Start Date: 08/04/17 Status: Ordered Ativan 0.5 mg oral tablet 1 tablet = 0.5 mg, By Mouth, 3 times a day, PRN anxiety, # 90 tablet, 2 Refills, Maintenance, 03/20/19 16:41:00 EST, Tablet, [facility]/pharmacy #2339, 157, cm, 01/13/19 9:10:00 EDT, Height, 104, kg, 08/03/17 12:54:00 EDT, Dry Weight Start Date: 03/20/19 Status: Ordered atorvastatin 40 mg oral tablet 1 tablet = 40 mg, By Mouth, Daily, # 30 tablet, 5 Refills, Maintenance, 03/20/19 15:53:00 EST, Tablet, [facility]/pharmacy #2339, 157, cm, 01/13/19 9:10:00 EDT, Height, 104, kg, 08/03/17 12:54:00 EDT, Dry Weight Start Date: 03/20/19 Status: Ordered CeleXA 40 mg oral tablet 1, tablet, By Mouth, Daily, # 90 tablet, Refills 1, Tot. Refills 1, Maintenance, 03/20/19 16:10:00 EST, Route to Pharmacy Electronically, [facility]/pharmacy #2339, 157, cm, 01/13/19 9:10:00 EDT, [...] Refills, Soft Stop, 05/10/19 16:02:00 EST, [facility]/pharmacy #2339, 157, cm, 04/21/19 10:26:00 EST, Height, 104, kg, 08/03/17 12:... Start Date: 05/10/19 Status: Ordered [facility] use with inhaler [facility] use with inhaler, See Instructions, # [...] 14:55:12 EDT, Aerosol, Route to Pharmacy Electronically, [id number], [facility]/pharmacy #2339 Start Date: 10/28/18 Status: Ordered [...]
--- OUTSIDE RECORDS SUMMARY | 2023-08-02 08:37 | XMS_ITS | Continuity of Care Document ---
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 no contraindications per patient 4Admin Note: GLO 5Admin Note: [employer]ensart,[place] 6Admin Note: Novaritis Medications Abilify 5 mg oral tablet 5 mg, 1, tablet, By Mouth, Daily, to be combined with the citalopram therapy, # 30 tablet, Refills 11, Tot. Refills 11, Maintenance, 07/31/19 14:19:00 EDT, [id number], cm, 07/31/19 13:53:00 EDT, Height, 1... Start Date: 07/31/19 Status: Ordered amLODIPine 5 mg oral tablet 5 mg, 1, tablet, By Mouth, Daily, # 90 tablet, Refills 0, Tot. Refills 0, Maintenance, 05/19/19 14:39:00 EST, [facility] Electronically, [facility], cm, 04/21/19 10:26:00 EST, Height, 104, kg, 08/03/17 12:54:00 EDT, Dry Weight Start Date: 05/19/19 Stop Date: 08/17/19 Status: Ordered amLODIPine 5 mg oral tablet 1 tablet = 5 mg, By Mouth, Daily, # 90 tablet, 0 Refills, Maintenance, 07/25/19 9:54:00 EDT, [facility], [facility], cm, 04/21/19 10:26:00 EST, Height, 104, kg, 08/03/17 12:54:00 EDT, Dry Weight Start Date: 07/25/19 Status: Ordered amoxicillin 500 mg oral capsule 4 capsule = 2,000 mg, By Mouth, 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 Refills 0, Maintenance, 08/04/17 9:05:52 EDT, Route to Pharmacy Electronically, [id number], [facility] 3 Start Date: 08/04/17 Status: Ordered [...] 5 Refills, Maintenance, 09/17/19 11:30:00 EDT, Tablet, [facility]/pharmacy #2339, 157, cm, 08/25/19 15:55:00 EDT, Height, Dry Weight Start Date: 09/17/19 Status: Ordered CeleXA 40 mg oral tablet 1, tablet, By Mouth, Daily, # 90 tablet, Refills 1, Tot. Refills 1, Maintenance, 03/20/19 16:10:00 EST, Route to Pharmacy Electronically, [facility]/pharmacy #2339, 157, cm, 01/13/19 9:10:00 EDT, [...] months, # 90 tablet, 0 Refills, Maintenance, 09/04/19 16:19:00 EDT, [facility]/pharmacy #2339, parital fill upon patient request, 157, cm, ... Start Date: 09/04/19 Stop Date: 10/04/19 Status: Ordered morphine 30 mg/8 to 12 hr oral tablet, extended release 1 tablet = 30 mg, By Mouth, 3 times a day, OPIATE AGREEMENT evaluated every 3 to 6 months, # 84 tablet, 0 Refills, Maintenance, 09/04/19 16:19:00 EDT, [facility], may fill for less, 157, cm, 08/25/19 15:55:00 EDT, Height, Dry Weight Start Date: 09/04/19 Stop Date: 10/02/19 Status: Ordered Multivitamin Daily, 0 Refills, Maintenance, [...] EDT, Height Start Date: 08/25/19 Status: Ordered [facility] use with inhaler [facility] use with inhaler, See Instructions, [...] 14:55:12 EDT, Aerosol, Route to Pharmacy Electronically, [id number], [facility]/pharmacy #2339 Start Date: [...]
--- OUTSIDE RECORDS SUMMARY | 2023-08-02 08:37 | XMS_ITS | Continuity of Care Document ---
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 no contraindications per patient 4Admin Note: [employer] 5Admin Note: [employer]/Rixensart,[place] 6Admin Note: Novaritis Medications amLODIPine 5 mg oral tablet 5 mg, 1, tablet, By Mouth, Daily, # 90 tablet, Refills 1, Tot. 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 Refills 0, Maintenance, 08/04/17 9:05:52 EDT, Route to Pharmacy Electronically, [id number], [facility] 3 Start Date: 08/04/17 Status: Ordered [...] Refills, Maintenance, Tablet, Route to Pharmacy Electronically, [id number], [facility]/pharmacy #2339 Start Date: 12/09/17 Status: Ordered CeleXA 40 mg oral tablet 1, tablet, By Mouth, Daily, # 90 tablet, Refills 1, Tot. Refills 1, Maintenance, 08/01/18 14:14:28 EDT, Route to Pharmacy Electronically, [id number], [facility]/pharmacy #2339 Start Date: 08/01/18 Stop Date: 01/28/19 [...] EDT, Patch Start Date: 06/29/18 Status: Ordered [facility] use with inhaler [facility] use with inhaler, See Instructions, # [...] 14:55:12 EDT, Aerosol, Route to Pharmacy Electronically, [id number], [facility]/pharmacy #2339 Start Date: 10/28/18 Status: Ordered [...]
--- OUTSIDE RECORDS SUMMARY | 2023-08-02 08:37 | XMS_ITS | Continuity of Care Document ---
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 Start Date: 10/13/21 Status: Ordered amLODIPine 10 mg oral tablet 1 tablet, By Mouth, Daily, # 90 tablet, 3 Refills, Maintenance, 02/23/22 8:50:00 EST, [facility], 157.48, cm, 01/20/22 14:40:00 EDT, Height, 111, kg, 06/10/21 15:06:00 EDT, Dry Weight Start Date: 02/23/22 Status: Ordered ARIPiprazole 5 mg oral tablet 1, tablet, By Mouth, Daily, X90 DAYS,INSTR:TO BE COMBINED WITH THE CITALOPRAM THERAPY, # 90 tablet,Refills 1, Maintenance, 07/26/22 7:25:00 EDT, Route to Pharmacy Electronically, [facility], 157.48, cm, 05/18/22 9:48:00 EST, Height, 111, kg, 03... Start Date: 07/26/22 Status: Ordered aspirin 81 mg oral delayed release tablet 81 mg, By Mouth, Daily, # 30 tablet, Refills 11, Tot. Refills 11, Maintenance, 06/12/21 9:27:00 EDT, Route to Pharmacy Electronically, [facility], Partial fill upon patient request if the prescription is for a schedule II opioid drug., 1... Start Date: 06/12/21 Stop Date: 06/07/22 Status: Ordered Ativan 0.5 mg oral tablet 1 tablet = 0.5 mg, By Mouth, Daily at bedtime, PRN as needed for anxiety, # 30 tablet, 5 Refills, Maintenance, 10/27/22 13:20:00 EDT, Tablet, [facility]/pharmacy #[id number], Partial fill upon patient request if the prescription is for a schedule II opioid drug.,... Start Date: 10/27/22 Status: Ordered atorvastatin 80 mg oral tablet 1 tablet, By Mouth, Daily at bedtime, # 90 tablet, 1 Refills, Maintenance, 10/12/22 12:22:00 EDT, [facility], 157.48, cm, 08/28/22 9:39:00 EDT, Height, 111, kg, 06/10/21 15:06:00 EDT, Dry Weight Start Date: 10/12/22 Status: Ordered citalopram 40 mg oral tablet 1 tablet, By Mouth, Daily, # 90 tablet, 1 Refills, Maintenance, 11/25/22 22:48:00 EDT, [facility], 157.48, cm, 11/17/22 16:49:00 EDT, Height, 111, [...] # 90 tablet, 1 Refills, [facility], 90, TAKE 1 TABLET BY MOUTH EVERY [...] each, 11 Refills, Maintenance, 07/08/22 11:55:00 EDT, [facility], 30, INHALE 2 PUFFS TWICE A DAY, 157.48, cm, 05/18/22 9:48:00 EST, Height, 111, kg, 06/10/21 15:06:00 EDT, Dry Weight Start Date: 07/08/22 Status: Ordered Entresto 24 mg-26 mg oral tablet 1 tablet, By Mouth, 2 times a day, # 60 tablet, 11 Refills, Maintenance, 09/21/22 14:36:00 EDT, [facility], 30, TAKE 1 TABLET BY MOUTH TWICE A DAY, 157.48, cm, 08/28/22 9:39:00 EDT, Height, 111,kg, 06/10/21 15:06:00 EDT, Dry Weight Start Date: 09/21/22 Status: Ordered Entresto 24 mg-26 mg oral tablet 1 tablet, By Mouth, 2 times a day, # 60 tablet, 11 Refills, [facility], 30, TAKE 1 TABLET BY MOUTH TWICE A DAY, 157.48, cm, 08/12/21 10:44:00 EDT, Height, 111, kg, 06/10/21 15:06:00 EDT, Dry Weight Start Date: 09/18/21 Status: Ordered ferrous sulfate 325 mg oral enteric coated tablet 1, tablet, By Mouth, 2 times a day, # 180 tablet, Refills 1, Maintenance, 07/26/22 7:26:00 EDT, Route to Pharmacy Electronically, [facility], 157.48, cm, 05/18/22 9:48:00 EST, Height, 111, kg, 06/10/21 15:06:00 EDT, Dry Weight Start Date: 07/26/22 Status: Ordered furosemide 20 mg oral tablet 1, tablet, By Mouth, Daily, # 90 tablet, Refills 1, Maintenance, 07/02/22 8:00:00 EDT, Route to Pharmacy Electronically, [facility], 157.48, cm, 05/18/22 9:48:00 EST, Height, 111, kg, 06/10/21 15:06:00 EDT, Dry Weight Start Date: 07/02/22 Status: Ordered furosemide 20 mg oral tablet 1, tablet, By Mouth, Daily, # 30 tablet, Refills 5, Maintenance, 12/30/21 15:04:00 EDT, Route to Pharmacy Electronically, [facility], 157.48, cm, 11/04/21 11:33:00 EDT, Height, 111, kg, 06/10/2214:06:00 EDT, Dry Weight Start Date: 12/30/21 Status: Ordered Metoprolol Succinate ER 100 mg oral tablet, extended release 1.5 tablet = 150 mg, By Mouth, Daily, # 135 tablet, 3 Refills, Maintenance, 10/12/22 15:26:00 EDT, XL Tablet, [facility]/pharmacy #2339, Partial fill upon patient request [...] tablet, 0 Refills, Maintenance, 11/25/22 22:49:00 EDT, [facility], 157.48, cm, 11/17/22 16:49:00 EDT, Height, 111, kg, 0... Start Date: 11/25/22 Status: Ordered spironolactone 25 mg oral tablet 0.5, tablet, By Mouth, Daily, # 45 tablet, Refills 1, Maintenance, 05/21/22 10:15:00 EST, Route to Pharmacy Electronically, [facility] 60747, 157.48, cm, 05/18/22 9:48:00 EST, Height, 111, kg, 06/10/21 15:06:00 EDT, Dry Weight Start Date: 05/21/22 Status: Ordered warfarin 5 mg oral tablet See Instructions, Take 1/2 to 1 tablet By Mouth Daily as directed by coumadin clinic, # 90 tablet, 2 Refills, Maintenance, 05/12/22 13:52:00 EST, Tablet, [facility], Partial fill upon patientrequest if the prescription is for a schedule II... Start Date: 05/12/22 Status: Ordered Problem List Condition Confirmation Course Effective Dates Status H ealth Status Informant Asthma Confirmed Active Atrial fibrillation Confirmed Active Back pain 1 Confirmed Active Cardiomyopathy Confirmed Active Major depression, chronic Confirmed Active CHF (congestive heart failure) (EJTI12-37% on echo 2019) Confirmed Active Coronary artery [...] Care Team Personnel Name: Radha Villela Position: [facility] RN Supv Member Role: Primary Care Nurse Name: Nichole Coates RN Position: [facility] RN Member Role: Primary Care Nurse Name: Ksenia Herzog RN Position: [facility] RN Member Role: Primary Care Nurse Name: Leatha Walsh RN Position: [facility] RN Member Role: Primary Care Nurse Name: Milagro Sims RN Position: [facility] RN Member Role: Primary Care Nurse Name: Jo Ann Stubbs PharmD Position: [facility] Associate Professional Member Role: Lifetime Consulting Provider Address: Address: [address] [place] [address] [facility] [place] [address] Name: Anne Gonzalez RN Position: [facility] RN Member Role: Primary Care Nurse Name: Mckayla Wilcox RN Position: [facility] RN Member Role: Primary Care Nurse Name: Simin Chen RN Position: [facility] RN Member Role: Primary Care Nurse Name: Jose Martinez MD Position: [facility] Physician - Primary Care Member Role: PCP Address: Address: [address] [place] [address]- Name: Aleks Merchant RN Position: [facility] RN Member Role: Primary Care Nurse Name: Genet Bowman RN Position: [facility] SN RN Member Role: Primary Care Nurse Name: Ilana Burns RN Position: [facility] RN Member Role: Primary Care Nurse Care Team Related Persons Name: TUTU ROWLAND Address: [address] [place] [address] Name: JANET CONNOR Address: home [address] [place] [address]
--- OUTSIDE RECORDS SUMMARY | 2023-08-02 08:37 | XMS_ITS | Continuity of Care Document ---
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 Refills 11, Maintenance, 07/31/19 14:19:00 EDT, [facility], cm, 07/31/19 13:53:00 EDT, Height, 1... Start Date: 07/31/19 Status: Ordered amLODIPine 5 mg oral tablet 5 mg, 1, tablet, By Mouth, Daily, # 90 tablet, Refills 0, Tot. Refills 0, Maintenance, 05/19/19 14:39:00 EST, [facility]ically, [facility], 157, cm, 04/21/19 10:26:00 EST, Height, 104, kg, 08/03/17 12:54:00 EDT, Dry Weight Start Date: 05/19/19 Stop Date: 08/17/19 Status: Ordered amLODIPine 5 mg oral tablet 1 tablet = 5 mg, By Mouth, Daily, # 90 tablet, 0 Refills, Maintenance, 07/25/19 9:54:00 EDT, 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 Refills 0, Maintenance, 08/04/17 9:05:52 EDT, Route to Pharmacy Electronically, [id number], [facility] 3 Start Date: 08/04/17 Status: Ordered Ativan 0.5 mg oral tablet 1 tablet = 0.5 mg, By Mouth, 3 times a day, PRN anxiety, # 90 tablet, 2 Refills, Maintenance, 07/24/19 17:04:00 EDT, Tablet, [facility]/pharmacy #2339, 157, cm, 04/21/19 10:26:00 EST, Height, 104, kg, 08/03/17 12:54:00 EDT, Dry Weight Start Date: 07/24/19 Status: Ordered atorvastatin 40 mg oral tablet 1 tablet = 40 mg, By Mouth, Daily, # 30 tablet, 5 Refills, Maintenance, 09/17/19 11:30:00 EDT, Tablet, [facility]/pharmacy #2339, 157, cm, 08/25/19 15:55:00 EDT, Height, Dry Weight Start Date: 09/17/19 Status: Ordered CeleXA 40 mg oral tablet 1, tablet, By Mouth, Daily, # 90 tablet, Refills 1, Tot. Refills 1, Maintenance, 03/20/19 16:10:00 EST, Route to Pharmacy Electronically, [facility]/pharmacy #2339, 157, cm, 01/13/19 9:10:00 EDT, [...] 0 Refills, Maintenance, 07/13/19 10:04:00 EDT, Tablet, [facility]/pharmacy #[id number], parital fill upon patient request, 157, cm, 04/21/19 10:... Start Date: 07/13/19 Status: Ordered Dulera 100 mcg-5 mcg/inh inhalation aerosol 2 puffs, Inhalation, 2 times a day, # 1 each, 11 Refills, Maintenance, 07/31/19 14:15:00 EDT, Aerosol, [facility]/pharmacy #2339, 2 puffs Inhalation [...] tablet, 0 Refills, Maintenance, 09/04/19 16:19:00 EDT, [facility]/pharmacy #2339, parital fill upon patient request, 157, cm, ... Start Date: 09/04/19 Stop Date: 10/04/19 Status: Ordered morphine 30 mg/8 to 12 hr oral tablet, extended release 1 tablet = 30 mg, By Mouth, 3 times a day, OPIATE AGREEMENT evaluated every 3 to 6 months, # 84 tablet, 0 Refills, Maintenance, 09/04/19 16:19:00 EDT, [facility]/pharmacy #2339, may fill for less, 157, cm, [...] 0 Refills, Soft Stop, 05/10/19 16:02:00 EST, [facility]/pharmacy #2339, 157, cm, 04/21/19 10:26:00 EST, Height, 104, kg, 08/03/17 12:... Start Date: 05/10/19 Status: Ordered Nicoderm C-Q 21 mg/24 hr transdermal film, extended release 1 patch, Topically, Daily, # 30 patch, 3 Refills, Maintenance, 08/25/19 16:23:00 EDT, Patch, [facility]/pharmacy #2339, 157, cm, 08/25/19 15:55:00 EDT, Height Start Date: 08/25/19 Status: Ordered [facility] use with inhaler [facility] use with inhaler, See [...] 14:55:12 EDT, Aerosol, Route to Pharmacy Electronically, [id number], [facility]/pharmacy #2339 Start Date: 10/28/18 Status: [...]
--- OUTSIDE RECORDS SUMMARY | 2023-08-02 08:37 | XMS_ITS | Continuity of Care Document ---
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 Refills 1, Maintenance, 09/02/18 11:06:29 EDT, Route to Pharmacy Electronically, [id number], 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 Refills 0, Maintenance, 08/04/17 9:05:52 EDT, Route to Pharmacy Electronically, [id number], [facility] 3 Start Date: 08/04/17 Status: Ordered Ativan 0.5 mg oral tablet 1 tablet = 0.5 mg, By Mouth, 3 times a day, PRN anxiety, # 90 tablet, 2 Refills, Maintenance, 03/20/19 16:41:00 EST, Tablet, [facility]/pharmacy #[id number], 157, cm, 01/13/19 9:10:00 EDT, Height, 104, kg, 08/03/17 12:54:00 EDT, Dry Weight Start Date: 03/20/19 Status: Ordered atorvastatin 40 mg oral tablet 1 tablet = 40 mg, By Mouth, Daily, # 30 tablet, 5 Refills, Maintenance, 03/20/19 15:53:00 EST, Tablet, [facility]/pharmacy #2339, 157, cm, 01/13/19 9:10:00 EDT, Height, 104, kg, 08/03/17 12:54:00 EDT, Dry Weight Start Date: 03/20/19 Status: Ordered CeleXA 40 mg oral tablet 1, tablet, By Mouth, Daily, # 90 tablet, Refills 1, Tot. Refills 1, Maintenance, 03/20/19 16:10:00 EST, Route to Pharmacy Electronically, [facility]/pharmacy #[id number], 157, cm, 01/13/19 9:10:00 [...] 0 Refills, Maintenance, 03/13/19 12:38:00 EST, Tablet, [facility]/pharmacy #[id number], parital fill upon patient request, 03/14/19, 157, cm, 10... Start Date: 03/13/19 Status: Ordered morphine 15 mg/8 to 12 hr oral tablet, extended release 1 tablet = 15 mg, By Mouth, Every 8 hours, PRN Pain , Moderate, On substance agreement evaluated every 3 to 6 months, # 90 tablet, 0 Refills, Maintenance, 04/12/19 9:47:00 EST, [facility]/pharmacy #[id number], parital fill upon patient request, 04/12/19, 157, cm... Start Date: 04/12/19 Stop Date: 05/12/19 Status: Ordered morphine 30 mg/8 to 12 hr oral tablet, extended release 1 tablet = 30 mg, By Mouth, 3 times a day, OPIATE AGREEMENT evaluated every 3 to 6 months, # 84 tablet, 0 Refills, Maintenance, 03/13/19 12:38:00 EST, [facility]/pharmacy #2339, may fill for less, 03/14/19,157, cm, 01/13/19 9:10:00 EDT, Height, 104, kg, 05... Start Date: 03/13/19 Stop Date: 1/20/20 Status: Ordered Multivitamin Daily, 0 Refills, Maintenance, [...] EDT, Patch Start Date: 06/29/18 Status: Ordered [facility] use with inhaler [facility] [...] 14:55:12 EDT, Aerosol, Route to Pharmacy Electronically, [id number], [facility]/pharmacy #[id number] Start Date: 10/28/18 Status: Ordered Ventolin HFA [...]
--- OUTSIDE RECORDS SUMMARY | 2023-08-02 08:37 | XMS_ITS | Continuity of Care Document ---
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 Refills 11, Maintenance, 07/31/19 14:19:00 EDT, [facility], cm, 07/31/19 13:53:00 EDT, Height, 1... Start Date: 07/31/19 Status: Ordered amLODIPine 5 mg oral tablet 5 mg, 1, tablet, By Mouth, Daily, # 90 tablet, Refills 0, Tot. Refills 0, Maintenance, 05/19/19 14:39:00 EST, [facility], cm, 04/21/19 10:26:00 EST, Height, 104, kg, 08/03/17 12:54:00 EDT, Dry Weight Start Date: 05/19/19 Stop Date: 08/17/19 Status: Ordered amLODIPine 5 mg oral tablet 1 tablet = 5 mg, By Mouth, Daily, # 90 tablet, 0 Refills, Maintenance, 07/25/19 9:54:00 EDT, [facility], cm, 04/21/19 10:26:00 EST, [...] 08/04/17 9:05:52 EDT, Route to Pharmacy Electronically, [id number], [facility] 3 Start Date: 08/04/17 Status: Ordered Ativan 0.5 mg oral tablet 1 tablet = 0.5 mg, By Mouth, 3 times a day, PRN anxiety, # 90 tablet, 2 Refills, Maintenance, 07/24/19 17:04:00 EDT, Tablet, [facility]/pharmacy #2339, 157, cm, 04/21/19 10:26:00 EST, Height, 104, kg, 08/03/17 12:54:00 EDT, Dry Weight Start Date: 07/24/19 Status: Ordered atorvastatin 40 mg oral tablet 1 tablet = 40 mg, By Mouth, Daily, # 30 tablet, 5 Refills, Maintenance, 03/20/19 15:53:00 EST, Tablet, [facility]/pharmacy #2339, 157, cm, 01/13/19 9:10:00 EDT, Height, 104, kg, 08/03/17 12:54:00 EDT, Dry Weight Start Date: 03/20/19 Status: Ordered CeleXA 40 mg oral tablet 1, tablet, By Mouth, Daily, # 90 tablet, Refills 1, Tot. Refills 1, Maintenance, 03/20/19 16:10:00 EST, Route to Pharmacy Electronically, [facility]/pharmacy #2339, 157, cm, 01/13/19 9:10:00 EDT, Height, [...] 0 Refills, Maintenance, 07/13/19 10:04:00 EDT, Tablet, [facility]/pharmacy #2339, parital fill upon patient request, 157, cm, 04/21/19 10:... Start Date: 07/13/19 Status: Ordered Dulera 100 mcg-5 mcg/inh inhalation aerosol 2 puffs, Inhalation, 2 times a day, # 1 each, 11 Refills, Maintenance, 07/31/19 14:15:00 EDT, Aerosol, [facility]/pharmacy #2339, 2 puffs Inhalation 2 [...] tablet, 0 Refills, Maintenance, 08/07/19 16:09:00 EDT, [facility]/pharmacy #2339, parital fill upon patient request, 157, [...] Soft Stop, 05/10/19 16:02:00 EST, [facility]/pharmacy #2339, 157, cm, 04/21/19 10:26:00 EST, Height, 104, kg, 08/03/17 12:... Start Date: 05/10/19 Status: Ordered [facility], See [...] 14:55:12 EDT, Aerosol, Route to Pharmacy Electronically, [id number], [facility]/pharmacy #2339 Start Date: 10/28/18 Status: Ordered Ventolin [...]
--- OUTSIDE RECORDS SUMMARY | 2023-08-02 08:37 | XMS_ITS | Continuity of Care Document ---
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 no contraindications per patient 5Admin Note: Now[employer] [facility] 6Admin Note: [employer],[place] 7Admin Note: Novaritis Medications Albuterol (Eqv-ProAir HFA) 2 puffs, Inhalation, Every 6 hours, 0 Refills, Maintenance, 10/13/21 13:54:00 EDT, Partial fill upon patient request if the prescription is for a schedule II opioid drug. Start Date: 10/13/21 Status: Ordered amLODIPine 10 mg oral tablet 1 tablet, By Mouth, Daily, # 90 tablet, 3 Refills, Maintenance, 02/23/22 8:50:00 EST, [facility], 157.48, cm, 01/20/22 14:40:00 EDT, Height, 111, kg, 06/10/21 15:06:00 EDT, Dry Weight Start Date: 02/23/22 Status: Ordered ARIPiprazole 5 mg oral tablet 1, tablet, By Mouth, Daily, X90 DAYS,INSTR:TO BE COMBINED WITH THE CITALOPRAM THERAPY, # 90 tablet,Refills 1, Maintenance, 07/26/22 7:25:00 EDT, Route to Pharmacy Electronically, [facility], 157.48, cm, 05/18/22 9:48:00 EST, Height, 111, kg, 03/... Start Date: 07/26/22 Status: Ordered aspirin 81 mg oral delayed release tablet 81 mg, By Mouth, Daily, # 30 tablet, Refills 11, Tot. Refills 11, Maintenance, 06/12/21 9:27:00 EDT, Route to Pharmacy Electronically, [facility], Partial fill upon patient request if the prescription is for a schedule II opioid drug., 1... Start Date: 06/12/21 Stop Date: 06/07/22 Status: Ordered Ativan 0.5 mg oral tablet 1 tablet = 0.5 mg, By Mouth, Daily at bedtime, PRN as needed for anxiety, # 30 tablet, 5 Refills, Maintenance, 05/25/22 7:04:00 EST, Tablet, [facility]/pharmacy #[id number], Partial fill upon patient request if the prescription is for a schedule II opioid drug., 1... Start Date: 05/25/22 Status: Ordered citalopram 40 mg oral tablet 1 tablet, By Mouth, Daily, # 90 tablet, 1 Refills, Maintenance, 06/22/22 14:38:00 EDT, [facility], 157.48, cm, 05/18/22 9:48:00 EST, Height, 111, [...] # 90 tablet, 1 Refills, [facility], 90, TAKE 1 TABLET BY MOUTH EVERY [...] each, 11 Refills, Maintenance, 07/08/22 11:55:00 EDT, [facility], 30, INHALE 2 PUFFS TWICE A DAY, 157.48, cm, 05/18/22 9:48:00 EST, Height, 111, kg, 06/10/21 15:06:00 EDT, Dry Weight Start Date: 07/08/22 Status: Ordered Entresto 24 mg-26 mg oral tablet 1 tablet, By Mouth, 2 times a day, # 60 tablet, 11 Refills, Maintenance, 09/21/22 14:36:00 EDT, [facility], 30, TAKE 1 TABLET BY MOUTH TWICE A DAY, 157.48, cm, 08/28/22 9:39:00 EDT, Height, 111,kg, 06/10/21 15:06:00 EDT, Dry Weight Start Date: 09/21/22 Status: Ordered Entresto 24 mg-26 mg oral tablet 1 tablet, By Mouth, 2 times a day, # 60 tablet, 11 Refills, [facility], 30, TAKE 1 TABLET BY MOUTH TWICE A DAY, 157.48, cm, 08/12/21 10:44:00 EDT, Height, 111, kg, 06/10/21 15:06:00 EDT, Dry Weight Start Date: 09/18/21 Status: Ordered ferrous sulfate 325 mg oral enteric coated tablet 1, tablet, By Mouth, 2 times a day, # 180 tablet, Refills 1, Maintenance, 07/26/22 7:26:00 EDT, Route to Pharmacy Electronically, [facility], 157.48, cm, 05/18/22 9:48:00 EST, Height, 111, kg, 06/10/21 15:06:00 EDT, Dry Weight Start Date: 07/26/22 Status: Ordered furosemide 20 mg oral tablet 1, tablet, By Mouth, Daily, # 90 tablet, Refills 1, Maintenance, 07/02/22 8:00:00 EDT, Route to Pharmacy Electronically, [facility], 157.48, cm, 05/18/22 9:48:00 EST, Height, 111, kg, 06/10/21 15:06:00 EDT, Dry Weight Start Date: 07/02/22 Status: Ordered furosemide 20 mg oral tablet 1, tablet, By Mouth, Daily, # 30 tablet, Refills 5, Maintenance, 12/30/21 15:04:00 EDT, Route to Pharmacy Electronically, [facility], 157.48, cm, 11/04/21 11:33:00 EDT, Height, 111, kg, 06/10/2214:06:00 EDT, Dry Weight Start Date: 12/30/21 Status: Ordered Lipitor 80 mg oral tablet 1 tablet = 80 mg, By Mouth, Daily at bedtime, # 90 tablet, 1 Refills, Maintenance, 07/02/22 13:46:00 EDT, Tablet, [facility]/pharmacy #[id number], Partial fill upon patient request if the prescription is for a schedule II opioid drug., 157.48, cm, 05/18/22 9:48:00... Start Date: 07/02/22 Stop Date: 12/29/22 Status: Ordered Metoprolol Succinate ER 25 mg oral tablet, extended release 1 tablet, By Mouth, Daily, # 90 tablet, 2 Refills, Maintenance, 05/21/22 10:15:00 EST, [facility], 157.48, cm, 05/18/22 9:48:00 EST, Height, 111, kg, 06/10/21 15:06:00 EDT, Dry Weight Start Date: 05/21/22 Status: Ordered rOPINIRole 0.25 mg oral tablet See Instructions, TAJE 1 TABLET BY MOUTH AT BEDTIME FOR 1 WEEK THEN INCRAESE TO 2 AT NIGHT FOR 1 WEEK THEN 3 EVERY NIG, # 270 tablet, 1 Refills, Maintenance, 06/22/22 14:48:00 EDT, [facility], 157.48, cm, 05/18/22 9:48:00 EST, Height, 111, kg, 03... Start Date: 06/22/22 Status: Ordered spironolactone 25 mg oral tablet 0.5, tablet, By Mouth, Daily, # 45 tablet, Refills 1, Maintenance, 05/21/22 10:15:00 EST, Route to Pharmacy Electronically, [facility], 157.48, cm, 05/18/22 9:48:00 EST, Height, 111, [...] chronic Confirmed Active CHF (congestive heart failure) (QYZQ19-96% on echo 2019) Confirmed Active Coronary artery [...] Care Team Personnel Name: Radha Villela Position: [facility] RN Supv Member Role: Primary Care Nurse Name: Nichole Coates RN Position: [facility] RN Member Role: Primary Care Nurse Name: Ksenia Herzog RN Position: [facility] RN Member Role: Primary Care Nurse Name: Leatha Walsh RN Position: [facility] RN Member Role: Primary Care Nurse Name: Milagro Sims RN Position: [facility] RN Member Role: Primary Care Nurse Name: Jo Ann Stubbs PharmD Position: [facility] Associate Professional Member Role: Lifetime Consulting Provider Address: Address: [address] [place] [address] [place] [address]- Name: Anne Gonzalez RN Position: [facility] RN Member Role: Primary Care Nurse Name: Mckayla Wilcox RN Position: [facility] SN RN Member Role: Primary Care Nurse Name: Simin Chen RN Position: [facility] RN Member Role: Primary Care Nurse Name: Jose Martinez MD Position: [facility] Physician - Primary Care Member Role: PCP Address: Address: [address] [place] [address]- Name: Aleks Merchant RN Position: S RN Member Role: Primary Care Nurse Name: Genet Bowman RN Position: [facility] RN Member Role: Primary Care Nurse Name: Ilana Burns RN Position: S RN Member Role: Primary Care Nurse Care Team Related Persons Name: TUTU ROWLAND Address: home [address] [place] [address] Name: JANET CONNOR Address: home [address] [place] [address]
--- OUTSIDE RECORDS SUMMARY | 2023-08-02 08:37 | XMS_ITS | Continuity of Care Document ---
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 Phone Michelle HICKEY, Jose Primary Care Physician [phone] [facility] - 06/10/22 [facility] [address] [place] [address]- Allergies, Adverse Reactions, Alerts Substance Reaction Severity [...] Vaccine (oldterm) 01/15/20 Recorde d tetanus/diphtheria/pertussis, acel(Tdap) 7/31/20 Given FluLaval (oldterm) 5 03/08/12 Given Pneumococcal Poly (PPV23) (oldterm) 06/02/11 Given Tet/Diphth/Acel, Pertussis (oldterm) 6 02/25/09 Gi lincoln influ virus vac, H1N1, inactive(oldterm) 7 01/21/09 Given 1Result Comment: [facility]:[id number] 2Result Comment: [01/19/2018] [id number] 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 no contraindications per patient 5Admin Note: [employer] [facility] 6Admin Note: [employer]/Rixens[employer],[place] 7Admin Note: Novaritis Medications Albuterol (Eqv-ProAir HFA) 2 puffs, Inhalation, Every 6 hours, 0 Refills, Maintenance, 10/13/21 13:54:00 EDT, Partial fill upon patient request if the prescription is for a schedule II opioid drug. Start Date: 10/13/21 Status: Ordered amLODIPine 10 mg oral tablet 1 tablet, By Mouth, Daily, # 90 tablet, 3 Refills, Maintenance, 02/23/22 8:50:00 EST, [facility] 63459, 157.48, cm, 01/20/22 14:40:00 EDT, Height, 111, [...] 06/12/21 9:27:00 EDT, Route to Pharmacy Electronically, [facility], Partial fill upon patient request if the prescription is for a schedule II opioid drug., 1... Start Date: 06/12/21 Stop Date: 06/07/22 Status: Ordered Ativan 0.5 mg oral tablet 1 tablet = 0.5 mg, By Mouth, Daily at bedtime, PRN as needed for anxiety, # 30 tablet, 5 Refills, Maintenance, 05/25/22 7:04:00 EST, Tablet, [facility]/pharmacy #[id number], Partial fill [...] EVERY DAY, # 90 tablet, 1 Refills, [facility] 54985, 90, TAKE 1 TABLET BY MOUTH EVERY [...] tablet, 11 Refills, [facility] 85232, 30, TAKE 1 TABLET BY MOUTH TWICE [...] 12/30/21 15:04:00 EDT, Route to Pharmacy Electronically, [facility] 78207, 157.48, cm, 11/04/21 11:33:00 EDT, Height, 111, kg, 06/10/2214:06:00 EDT, Dry Weight Start Date: 12/30/21 Status: Ordered Lipitor 80 mg oral tablet 1 tablet = 80 mg, By Mouth, Daily at bedtime, # 30 tablet, 11 Refills, Maintenance, 06/12/21 9:27:00 EDT, Tablet, [facility], Partial fill upon patient request if the prescription is for a schedule II opioid drug., 157.48, cm, 06/10/21 1... Start Date: 06/12/21 Status: Ordered Metoprolol Succinate ER 25 mg oral tablet, extended release 1 tablet, By Mouth, Daily, # 90 tablet, 2 Refills, Maintenance, 05/21/22 10:15:00 EST, [facility] 288[facility], 157.48, cm, 05/18/22 9:48:00 EST, Height, 111, kg, 06/10/21 15:06:00 EDT, Dry Weight Start Date: 05/21/22 Status: Ordered rOPINIRole 0.25 mg oral tablet See Instructions, TAJE 1 TABLET BY MOUTH AT BEDTIME FOR 1 WEEK THEN INCRAESE TO 2 AT NIGHT FOR 1 WEEK THEN 3 EVERY NIG, # 90 tablet, 5 Refills, Maintenance, 02/23/22 8:50:00 EST, [facility] 92602, 157.48, cm, 01/20/22 14:40:00 EDT, Height, 111, kg, 03/... Start Date: 02/23/22 Status: Ordered spironolactone 25 mg oral tablet 0.5, tablet, By Mouth, Daily, # 45 tablet, Refills 1, Maintenance, 05/21/22 10:15:00 EST, Route to Pharmacy Electronically, [facility] 37183, 157.48, cm, 05/18/22 9:48:00 EST, Height, 111, kg, 06/10/21 15:06:00 EDT, Dry Weight Start Date: 05/21/22 Status: Ordered warfarin 5 mg oral tablet See Instructions, Take 1/2 to 1 tablet By Mouth Daily as directed by coumadin clinic, # 90 tablet, 2 Refills, Maintenance, 05/12/22 13:52:00 EST, Tablet, [facility]/pharm[facility] #[id number], Partial fill upon patientrequest if the prescription is for a schedule II... Start Date: 05/12/22 Status: Ordered Problem List Condition Confirmation Course Effective Dates Status H ealth Status Informant Asthma Confirmed Active Atrial fibrillation Confirmed Active Back pain 1 Confirmed Active Cardiomyopathy Confirmed Active Major depression, chronic Confirmed Active CHF (congestive heart failure) (VQVS89-96% on echo 2019) Confirmed Active Coronary artery [...] Care Team Personnel Name: Radha Villela Position: [facility] RN Supv Member Role: Primary Care Nurse Name: Nichole Coates RN Position: [facility] SN RN Member Role: Primary Care Nurse Name: Ksenia Herzog RN Position: [facility] RN Member Role: Primary Care Nurse Name: Leatha Walsh RN Position: [facility] SN RN Member Role: Primary Care Nurse Name: Milagro Sims RN Position: [facility] RN Member Role: Primary Care Nurse Name: Jo Ann Stubbs PharmD Position: [facility] Associate Professional Member Role: Lifetime Consulting Provider Address: Address: [address] [place] [address]- [place] Name: Anne Gonzalez RN Position: [facility] RN Member Role: Primary Care Nurse Name: Mckayla Wilcox RN Position: [facility] SN RN Member Role: Primary Care Nurse Name: Simin Chen RN Position: [facility] RN Member Role: Primary Care Nurse Name: Jose Martinez MD Position: [facility] Primary Care Physician Member Role: PCP Address: Address: [address] [place] [phone]- [place] Name: Aleks Merchant RN Position: [facility] RN Member Role: Primary Care Nurse Name: Genet Bowman RN Position: [facility] SN RN Member Role: Primary Care Nurse Name: Ilana Burns RN Position: [facility] RN Member Role: Primary Care Nurse Care Team Related Persons Name: TUTU ROWLAND Address: [address] [address] Name: JANET CONNOR Address: home [address] [place] [address]
--- OUTSIDE RECORDS SUMMARY | 2023-08-02 08:37 | XMS_ITS | Continuity of Care Document ---
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 Start Date: 08/06/21 Stop Date: 08/01/22 Status: Ordered aspirin 81 mg oral delayed release tablet 81 mg, By Mouth, Daily, # 30 tablet, Refills 11, Tot. Refills 11, Maintenance, 06/12/21 9:27:00 EDT, Route to Pharmacy Electronically, [facility], Partial fill upon patient request if the prescription is for a schedule II opioid drug., 1... Start Date: 06/12/21 Stop Date: 06/07/22 Status: Ordered Ativan 0.5 mg oral tablet 1 tablet = 0.5 mg, By Mouth, Daily at bedtime, PRN as needed for anxiety, # 30 tablet, 1 Refills, Maintenance, 08/06/21 9:02:00 EDT, Tablet, [facility]/pharmacy #[id number], Partial fill [...] EVERY DAY, # 90 tablet, 1 Refills, [facility] 99[facility], 90, TAKE 1 TABLET BY MOUTH EVERY [...] a day, # 60 tablet, 11 Refills, [facility] 26577, 30, TAKE 1 TABLET BY MOUTH TWICE [...] 08/06/21 9:01:00 EDT, [id number] 157.[facility], cm, 08/05/21 14:31:00 EDT, Height, 111,... Start Date: 08/06/21 Stop Date: 08/01/22 Status: Ordered Lasix 20 mg oral tablet 20 mg, 1, tablet, By Mouth, Daily, PRN, # 30 tablet, Refills 1, Tot. Refills 1, Maintenance, Other,11/07/21 8:28:00 EDT, [id number] Partial fill upon patient request if the prescription is for a schedule II... Start Date: 11/07/21 Stop Date: 01/06/22 Status: Ordered Lipitor 80 mg oral tablet 1 tablet = 80 mg, By Mouth, Daily at bedtime, # 30 tablet, 11 Refills, Maintenance, 06/12/21 9:27:00 EDT, Tablet, [facility], Partial fill upon patient request if the prescription is for a schedule II opioid drug., 157.48, cm, 06/10/21 1... Start Date: 06/12/21 Status: Ordered metoprolol 100 mg oral tablet, extended release 100 mg, 1, tablet, By Mouth, Daily, # 90 tablet, Refills 3, Tot. Refills 3, Maintenance, 09/11/21 12:08:00 EDT, Route to Pharmacy Electronically, [facility]/pharmacy #[id number], 157.48, cm, 08/12/21 10:44:00 EDT, [...] tablet, 0 Refills, Maintenance, 08/19/21 14:03:00 EDT, [facility]/pharmacy #[id number], parital fill upon patient request, 157.48, cm, 2... Start Date: 08/19/21 Stop Date: 09/16/21 Status: Ordered morphine 15 mg/8 to 12 hr oral tablet, extended release 1 tablet = 15 mg, By Mouth, Every 8 hours, PRN Pain , Moderate, On substance agreement evaluated every 3 to 6 months, # 84 tablet, 0 Refills, Maintenance, 10/13/21 14:41:00 EDT, [facility]/pharmacy #[id number], parital fill upon patient request, [...] EVERY NIG, # 90 tablet, 1 Refills, [facility] 31777, 157.48, cm, 08/12/21 10:44:00 EDT, Height, 111, kg, 06/10/21 15:06:00 EDT, Dry Weight Start Date: 10/31/21 Status: Ordered warfarin 5 mg oral tablet 0.5 tablet = 2.5 mg, By Mouth, Daily, Goal INR 2-3 Please follow up with your coumadin clinic, # 15tablet, 0 Refills, Maintenance, 06/12/21 9:27:00 EDT, Tablet, [facility], Partial fill upon patient request if the prescription is for a... Start Date: 06/12/21 Status: Ordered Problem List Condition Effective Dates Status Health Status Inform ant Asthma(Confirmed) Active Atrial fibrillation(Confirmed) Active Back pain(Confirmed) 1 Active Major depression, chronic(Confirmed) Active CHF (congestive heart failur e) (OLMQ79-10% on echo 2019)(Confirmed) Active Continuous opioid dependence(Confirmed) [...] Dates Health Status Cl inical Service Informant Hypertension Discharge Diagnosis 11/04/21 Vital Signs Most recent to oldest [Reference Range]: 1 Height 157.48 cm (11/04/21 11:33 AM) Weight 117.7 kg (11/04/21 11:33 AM) Oxygen Saturation [94-100 %] 97 % (11/04/21 11:33 AM) Pulse Rate [55-90 bpm] 71 bpm (11/04/21 11:33 AM) Body Mass Index [18.5-24.99] 47.46 *>HHI* (11/04/21 11:33 AM) Blood Pressure [90-138/55-84 mm Hg] 129/ 85mm Hg (11/04/21 11:33 AM) Blood pressure sites Arm, right (11/04/21 11:33 AM) Weight Obtained Via Standing scale (11/04/21 11:33 AM) Social History Social History Type Response Smoking Status 5-9 cigarettes (betw een 1/4 to 1/2 pack)/day in last 30 days; Other: Started at 23 years old; entered on: 01/18/20 Sex
--- OUTSIDE RECORDS SUMMARY | 2023-08-02 08:37 | XMS_ITS | Continuity of Care Document ---
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 no contraindications per patient 4Admin Note: [employer] [facility] 5Admin Note: [employer],[place] 6Admin Note: Novaritis Medications Abilify 5 mg oral tablet 5 mg, 1, tablet, By Mouth, Daily, to be combined with the citalopram therapy, # 30 tablet, Refills 11, Tot. Refills 11, Maintenance, 07/31/19 14:19:00 EDT, Route to Pharmacy Electronically, [facility]/pharmacy #[id number], 157, cm, 07/31/19 13:53:00 EDT, Height, 1... Start Date: 07/31/19 Status: Ordered Ativan 0.5 mg oral tablet 1 tablet = 0.5 mg, By Mouth, 3 times a day, PRN anxiety, # 90 tablet, 2 Refills, Maintenance, 02/26/20 20:28:00 EST, Tablet, [facility]/pharmacy #[id number], 160, cm, 01/26/20 9:40:00 EST, Height, 104, kg, 01/19/20 3:57:00 EDT, Dry Weight Start Date: 02/26/20 Status: Ordered atorvastatin 40 mg oral tablet 1 tablet = 40 mg, By Mouth, Daily, # 90 tablet, 1 Refills, Maintenance, 11/16/19 10:37:00 EDT, Tablet, [facility]/pharmacy #2339, 156.6, cm, 10/23/19 15:34:00 EDT, Height, Dry Weight Start Date: 11/16/19 Status: Ordered citalopram 40 mg oral tablet 1 tablet, By Mouth, Daily, # 90 tablet, 1 Refills, Maintenance, 04/04/20 11:03:00 EST, [facility]/pharmacy#2339, 162.5, cm, 04/03/20 11:38:00 EST, [...] 0 Refills, Maintenance, 04/01/20 14:41:00 EST, Tablet, [facility]/pharmacy #[id number], parital fill upon patient request, 160, cm, 02/28/20 10:... Start Date: 04/01/20 Status: Ordered Dulera 100 mcg-5 mcg/inh inhalation aerosol 2 puffs, Inhalation, 2 times a day, # 1 each, 11 Refills, Maintenance, 07/31/19 14:15:00 EDT, Aerosol, [facility]/pharmacy #2339, 2 puffs Inhalation 2 times a day, 157, cm, 07/31/19 13:53:00 EDT, Height, 104, kg, 08/03/17 12:54:00 EDT, Dry Weight Start Date: 07/31/19 Status: Ordered ferrous sulfate 325 mg oral enteric coated tablet 325 mg, By Mouth, 2 times a day, # 60 tablet, Refills 1, Tot. Refills 1, Maintenance, 03/14/20 13:59:00 EST, Route to Pharmacy Electronically, [facility]/pharmacy #[id number], 160, cm, 02/28/20 10:28:00 EST, Height, 104, kg, 01/19/20 3:57:00 EDT, Dry Weight Start Date: 03/14/20 Status: Ordered Keflex monohydrate 500 mg oral capsule 1 capsule = 500 mg, By Mouth, 4 times a day, for 7 days, # 28 capsule, 0 Refills, Acute 04/10/20 12:07:00 EST, 04/03/20 12:07:00 EST, Capsule, [facility]/pharmacy #[id number], Partial fill upon patient request ifthe prescription is for a schedule II opioid drug.,... Start Date: 04/03/20 Stop Date: 04/10/20 Status: Ordered Lasix 40 mg oral tablet 40 mg, 1, tablet, By Mouth, Daily, # 30 tablet, Refills 5, Tot. Refills 5, Maintenance, 03/11/20 13:11:00 EST, Route to Pharmacy Electronically, [facility]/pharmacy #[id number], 160, cm, 02/28/20 10:28:00 EST, Height, 104, kg, 01/19/20 3:57:00 EDT, Dry Weight Start Date: 03/11/20 Status: Ordered lisinopril 10 mg oral tablet 10 mg, 1, tablet, By Mouth, Daily, # 90 tablet, Refills 0, Tot. Refills 0, Maintenance, 02/26/20 14:41:00 EST, Route to Pharmacy Electronically, [facility]/pharmacy #[id number], Partial fill [...] tablet, 0 Refills, Maintenance, 03/11/20 15:21:00 EST, [facility]/pharmacy #[id number], parital fill upon patient request, 160, cm, ... Start Date: 03/11/20 Stop Date: 04/10/20 Status: Ordered morphine 30 mg/8 to 12 hr oral tablet, extended release 1 tablet = 30 mg, By Mouth, 3 times a day, OPIATE AGREEMENT evaluated every 3 to 6 months, # 84 tablet, 0 Refills, Maintenance, 04/01/20 14:41:00 EST, [facility]/pharmacy #[id number], may fill for less, 160, cm, 02/28/20 10:28:00 EST, Height, 106, kg, 04/01/20 10... Start Date: 04/01/20 Stop Date: 04/29/20 Status: Ordered Multivitamin Daily, 0 Refills, Maintenance, 05/25/16 13:36:30 Start Date: 05/25/16 Status: Ordered Nicoderm C-Q 21 mg/24 hr transdermal film, extended release 1 patch, Topically, Daily, # 30 patch, 3 Refills, Maintenance, 08/25/19 16:23:00 EDT, Patch, [facility]/pharmacy #2339, 157, cm, 08/25/19 15:55:00 EDT, Height Start Date: 08/25/19 Status: [facility] with [facility]er [facility] use with inhaler, See [...] 9:08:00 EST, Route to Pharmacy Electronically, [facility]/pharmacy #[id number], 160, cm, 01/22/20 7:53:00 EST, Height, 104, kg, 01/19/20 3:57:00 EDT, Dry Weight Start Date: 01/22/20 Stop Date: 07/20/20 Status: Ordered Ventolin HFA 108 mcg/inh inhalation aerosol with adapter 2 puffs, Inhalation, 4 times a day, PRN for wheezing, # 8 Gm, 5 Refills, Maintenance, 12/20/19 11:27:00 EDT, Aerosol, [facility]/pharmacy #2339, 156.6, cm, 10/23/19 15:34:00 EDT, Height Start Date: 12/20/19 Status: Ordered warfarin 5 mg oral tablet 0.5 tablet = 2.5 mg, By Mouth, Daily at bedtime, 5mg tablet on Fridays, # 30 tablet, 5 Refills, Maintenance, 02/26/20 12:12:00 EST, Tablet, [facility]/pharmacy #[id number], 160, cm, 01/26/20 9:40:00 [...] 3Right 11/2008 4advanced right hip OA Results Orders for Microbiology Reports Name Date Sterile Body Fluid Culture W/ Gram Smear (STERILE FLUID CULT.) 04/04/20 Microbiology Reports TEST:Sterile Fluid Culture STATUS:Unauthenticated BODY SITE: SOURCE:OTHER COLLECTED DATE/TIME:04/04/20 4:13 PM Sterile Fluid Culture SPECIMEN DESCRIPTION : OTHER FLUID RIGHT INNER EMINENT PURULENT SPECIAL REQUESTS : NONE GRAM STAIN : 4+ POLYMORPHONUCLEAR LEUKOCYTES NO ORGANISMS SEEN REPORT STATUS : PRELIMINARY REPORT Vital Signs Most recent to oldest [Reference Range]: 1 2 Height 162.5 cm (04/04/20 3:15 PM) 162.5 cm (04/03/20 11:10 AM) Weight 106.3 kg (04/04/20 3:15 PM) 108 kg (04/03/20 11:10 AM) Oxygen Saturation [94-100 %] 98 % (04/04/20 4:30 PM) 99 % (04/04/20 3:15 PM) Pulse Rate [55-90 bpm] 48 bpm *L* (04/04/20 3:15 PM) Body Mass Index [18.5-24.99] 40.26 *>HHI* (04/04/20 3:15 PM) 40.9 *>HHI* (04/03/20 11:10 AM) Blood Pressure [90-138/55-84 mm Hg] 114/ 89mm Hg (04/04/20 4:30 PM) 114/82mm Hg (04/04/20 3:15 PM) Respiratory Rate [16-30 br/min] 15 br/mi n *L* (04/04/20 4:30 PM) 16 br/min (04/04/20 3:15 PM) Temperature [96.8-100.4 DegF] 98.1 DegF (04/04/20 4:30 PM) 98.3 DegF (04/04/20 3:15 PM) Mode of Delivery (Oxygen) Room air (04/04/20 4:30 PM) Room air (04/04/20 3:15 PM) Temperature Route Temporal (04/04/20 4:30 PM) Temporal (04/04/20 3:15 PM) Dry Weight 106.3 kg (04/04/20 3:15 PM) 108 kg (04/03/20 11:10 AM) Weight Obtained Via Standing scale (04/04/20 3:15 PM) Patient/family stated (04/03/20 11:10 AM) Dry Weight Obtained Via Patient/family s tated (04/03/20 11:10 AM) Social History Social History Type Response Smoking Status 5-9 cigarettes (betw een 1/4 to 1/2 pack)/day in last 30 days; Other: Started at 23 years old; entered on: 01/18/20 Sex
--- OUTSIDE RECORDS SUMMARY | 2023-08-02 08:37 | XMS_ITS | Continuity of Care Document ---
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 Refills 11, Maintenance, 07/31/19 14:19:00 EDT, Route to Pharmacy Electronically, [facility]/pharmacy #[id number], 157, cm, 07/31/19 13:53:00 EDT, Height, 1... Start Date: 07/31/19 Status: Ordered Ativan 0.5 mg oral tablet 1 tablet = 0.5 mg, By Mouth, 3 times a day, PRN anxiety, # 90 tablet, 2 Refills, Maintenance, 02/26/20 20:28:00 EST, Tablet, [facility]/pharmacy #2339, 160, cm, 01/26/20 9:40:00 EST, Height, 104, kg, 01/19/20 3:57:00 EDT, Dry Weight Start Date: 02/26/20 Status: Ordered atorvastatin 40 mg oral tablet 1 tablet = 40 mg, By Mouth, Daily, # 90 tablet, 1 Refills, Maintenance, 11/16/19 10:37:00 EDT, Tablet, [facility]/pharmacy #2339, 156.6, cm, 10/23/19 15:34:00 EDT, Height, Dry Weight Start Date: 11/16/19 Status: Ordered Bactrim DS 800 mg-160 mg oral tablet 2 tablet, By Mouth, Every 12 hours, for 10 days, # 40 tablet, 0 Refills, Acute 04/11/20 18:45:00 EST, 04/01/20 18:45:00 EST, Tablet, [facility]/pharmacy #2339, Partial fill upon patient request if the prescription is for a schedule II opioid drug., 2 tablet... Start Date: 04/01/20 Stop Date: 04/11/20 Status: Ordered citalopram 40 mg oral tablet 1 tablet, By Mouth, Daily, # 90 tablet, 1 Refills, Maintenance, 10/03/19 13:25:00 EDT, [id number], 157, cm, 08/25/19 15:55:00 EDT, Height Start [...] 0 Refills, Maintenance, 04/01/20 14:41:00 EST, Tablet, [facility]/pharmacy #[id number], parital fill upon patient request, 160, cm, 02/28/20 10:... Start Date: 04/01/20 Status: Ordered Dulera 100 mcg-5 mcg/inh inhalation aerosol 2 puffs, Inhalation, 2 times a day, # 1 each, 11 Refills, Maintenance, 07/31/19 14:15:00 EDT, Aerosol, [facility]/pharmacy #2339, 2 puffs Inhalation 2 times a day, 157, cm, 07/31/19 13:53:00 EDT, Height, 104, kg, 08/03/17 12:54:00 EDT, Dry Weight Start Date: 07/31/19 Status: Ordered ferrous sulfate 325 mg oral enteric coated tablet 325 mg, By Mouth, 2 times a day, # 60 tablet, Refills 1, Tot. Refills 1, Maintenance, 03/14/20 13:59:00 EST, Route to Pharmacy Electronically, [facility]/pharmacy #2339, 160, cm, 02/28/20 10:28:00 EST, Height, 104, kg, 01/19/20 3:57:00 EDT, Dry Weight Start Date: 03/14/20 Status: Ordered Lasix 40 mg oral tablet 40 mg, 1, tablet, By Mouth, Daily, # 30 tablet, Refills 5, Tot. Refills 5, Maintenance, 03/11/20 13:11:00 EST, Route to Pharmacy Electronically, [facility]/pharmacy #2339, 160, cm, 02/28/20 10:28:00 EST, Height, 104, kg, 01/19/20 3:57:00 EDT, Dry Weight Start Date: 03/11/20 Status: Ordered lisinopril 10 mg oral tablet 10 mg, 1, tablet, By Mouth, Daily, # 90 tablet, Refills 0, Tot. Refills 0, Maintenance, 02/26/20 14:41:00 EST, Route to Pharmacy Electronically, [facility]/pharmacy #[id number], Partial fill upon patient request if the prescription is for a schedule II opioid drug... Start Date: 02/26/20 Status: Ordered morphine 15 mg/8 to 12 hr oral tablet, extended release 1 tablet = 15 mg, By Mouth, Every 8 hours, PRN Pain , Moderate, On substance agreement evaluated every 3 to 6 months, # 90 tablet, 0 Refills, Maintenance, 03/11/20 15:21:00 EST, [facility]/pharmacy #[id number], parital fill upon patient request, 160, cm, ... Start Date: 03/11/20 Stop Date: 04/10/20 Status: Ordered morphine 30 mg/8 to 12 hr oral tablet, extended release 1 tablet = 30 mg, By Mouth, 3 times a day, OPIATE AGREEMENT evaluated every 3 to 6 months, # 84 tablet, 0 Refills, Maintenance, 04/01/20 14:41:00 EST, [facility]/pharmacy #2339, may fill for less, 160, cm, 02/28/20 10:28:00 EST, Height, 106, kg, 04/01/20 10... Start Date: 04/01/20 Stop Date: 04/29/20 Status: Ordered Multivitamin Daily, 0 Refills, Maintenance, 05/25/16 13:36:30 Start Date: 05/25/16 Status: Ordered Nicoderm C-Q 21 mg/24 hr transdermal film, extended release 1 patch, Topically, Daily, # 30 patch, 3 Refills, Maintenance, 08/25/19 16:23:00 EDT, Patch, [facility]/pharmacy #2339, 157, cm, 08/25/19 15:55:00 EDT, Height Start Date: 08/25/19 Status: Ordered [facility] use with inhaler [facility] use with inhaler, See [...] 9:08:00 EST, [facility], cm, 01/22/20 7:53:00 EST, Height, 104, kg, 01/19/20 3:57:00 EDT, Dry Weight Start Date: 01/22/20 Stop Date: 07/20/20 Status: Ordered Ventolin HFA 108 mcg/inh inhalation aerosol with adapter 2 puffs, Inhalation, 4 times a day, PRN for wheezing, # 8 Gm, 5 Refills, Maintenance, 12/20/19 11:27:00 EDT, Aerosol, [facility]/pharmacy #2339, 156.6, cm, 10/23/19 15:34:00 EDT, Height Start Date: 12/20/19 Status: Ordered warfarin 5 mg oral tablet 1 tablet = 5 mg, By Mouth, Daily, # 30 tablet, 5 Refills, Maintenance, 02/26/20 12:12:00 EST, Tablet, [facility]/pharmacy #2339, 160, cm, 01/26/20 9:40:00 EST, Height, [...] Exam Date Time Procedure Performing Provider Status 04/01/20 4:43 PM Hand Min 3 Views Right Celeste Ellis; Dari (Verified) Notes: (Hand Min 3 Views Right) Reason For Exam: with Pain;Foreign Body RESULT: Hand Min 3 Views Right Hand Min 3 Views Right, 3 views Hx of Present Illness: pt with stick stuck in hand, had small sliver noted to inner aspect of right palm thumb area. Slight redness noted at this time. Has good cms and rom; Reason: Foreign Body; with Pain; Clinical Question(s): Fracture COMPARISON: None. FINDINGS: No radiopaque foreign body identified on the views provided. There is severe degenerative changes of the first carpal metacarpal articulation. No fracture. IMPRESSION: No radiopaque foreign body is identified. Severe degenerative changes of the first carpometacarpal articulation. WSN: [id number] Ordering Physician: Seema Solorzano Dictated By: Luis Fernando Holman MD Dictated Date/Time: 04/01/20 4:56 pm Reviewed By: Luis Fernando Holman MD Signed By: Luis Fernando Holman MD Signed Date/Time: 04/01/20 4:56 pm Transcribed By: LOS Transcribed Date/Time: 04/01/20 4:55 pm Vital Signs Most recent to oldest [Reference Range]: 1 2 3 Weight 106 kg (04/01/20 7:02 PM) 106 kg (04/01/20 10:30 AM) Oxygen Saturation [94-100 %] 100 % (04/01/20 7:02 PM) 96 % (04/01/20 3:44 PM) 96 % (04/01/20 10:30 AM) Pulse Rate [55-90 bpm] 67 bpm (04/01/20 7:02 PM) 78 bpm (04/01/20 3:44 PM) 68 bpm (04/01/20 10:30 AM) Blood Pressure [90-138/55-84 mm Hg] 124/85mm Hg (04/01/20 7:02 PM) 103/70mm Hg (04/01/20 3:44 PM) 128/87mm Hg (04/01/20 10:30 AM) Respiratory Rate [16-30 br/min] 18 br/min (04/01/20 7:02 PM) 18 br/min (04/01/20 3:44 PM) 16 br/min (04/01/20 10:30 AM) Temperature [96.8-100.4 DegF] 97.9 DegF (04/01/20 7:02 PM) 98.2 DegF (04/01/20 3:44 PM) 98.0 DegF (04/01/20 10:30 AM) Mode of Delivery (Oxygen) Room air (04/01/20 7:02 PM) Room air (04/01/20 3:44 PM) Room air (04/01/20 10:30 AM) Blood pressure sites Arm, right (04/01/20 7:02 PM) Arm, right (04/01/20 3:44 PM) Arm, right (04/01/20 10:30 AM) Temperature Route Oral (04/01/20 7:02 PM) Oral (04/01/20 3:44 PM) Oral (04/01/20 10:30 AM) Dry Weight 106 kg (04/01/20 7:02 PM) 106 kg (04/01/20 10:30 AM) Social History Social History Type Response Smoking Status 5-9 cigarettes (betw een 1/4 to 1/2 pack)/day in last 30 days; Other: Started at 23 years old; entered on: 01/18/20 Sex
--- OUTSIDE RECORDS SUMMARY | 2023-08-02 08:37 | XMS_ITS | Continuity of Care Document ---
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 no contraindications per patient 5Admin Note: [employer] [facility] 6Admin Note: [employer],[place] 7Admin Note: Novaritis Medications ARIPiprazole 5 mg oral tablet 1, tablet, By Mouth, Daily, TO BE COMBINED WITH THE CITALOPRAM THERAPY, # 90 tablet, Refills 1, Route to Pharmacy Electronically, [id number], 162.5, cm, 12/27/20 14:39:00 EDT, Height, 103, kg, 04/10/20 11:20:00 EST, Dry Weight Start Date: 01/16/21 Status: Ordered Ativan 0.5 mg oral tablet 1 tablet = 0.5 mg, By Mouth, 3 times a day, PRN anxiety, # 90 tablet, 2 Refills, Maintenance, 02/24/21 14:29:00 EST, Tablet, [facility]/pharmacy #2339, 162.5, cm, 01/29/21 12:38:00 EST, Height, 103, kg, 04/10/20 11:20:00 EST, Dry Weight Start Date: 02/24/21 Status: Ordered atorvastatin 40 mg oral tablet 1 tablet = 40 mg, By Mouth, Daily, # 90 tablet, 1 Refills, Maintenance, 11/16/19 10:37:00 EDT, Tablet, [facility]/pharmacy #2339, 156.6, cm, 10/23/19 15:34:00 EDT, Height, Dry Weight Start Date: 11/16/19 Status: Ordered citalopram 40 mg oral tablet 1 tablet, By Mouth, Daily, # 90 tablet, 1 Refills, Maintenance, 10/28/20 14:21:00 EDT, [facility]/pharmacy#2339, 162.5, cm, 05/15/20 10:27:00 EST, Height, 103, [...] 0 Refills, Maintenance, 02/24/21 14:29:00 EST, Tablet, [facility]/pharmacy #2339, parital fill upon patient request, 162.5, cm, 01/29/21 1... Start Date: 02/24/21 Status: Ordered Dulera 100 mcg-5 mcg/inh inhalation aerosol 2 puffs, Inhalation, 2 times a day, # 13 Unknown, 11 Refills, Maintenance, 07/22/20 7:52:00 EDT, [id number], 30, INHALE 2 PUFFS TWICE A DAY, 162.5, cm, 05/15/20 10:27:00 EST, Height, 103, kg, 04/10/20 11:20:00 EST, Dry Weight Start Date: 07/22/20 Status: Ordered ferrous sulfate 325 mg oral enteric coated tablet 1, tablet, By Mouth, 2 times a day, # 180 tablet, Refills 1, Tot. Refills 0, Maintenance, 10/17/20 7:27:00 EDT, Route to Pharmacy Electronically, [id number], 162.5, cm, 05/15/20 10:27:00 EST, Height, 103, kg, 04/10/20 11:20:00 EST, Dry Weight Start Date: 10/17/20 Status: Ordered lisinopril 10 mg oral tablet 1, tablet, By Mouth, Daily, # 90 tablet, Refills 3, Route to Pharmacy Electronically, [id number], 162.5, cm, 05/15/20 10:27:00 EST, Height, 103, kg, 04/10/20 11:20:00 EST, Dry Weight Start Date: 11/13/20 Status: Ordered Metoprolol Succinate ER 25 mg oral tablet, extended release 1 tablet, By Mouth, Daily, # 90 tablet, 1 Refills, Maintenance, 07/22/20 7:32:00 EDT, [id number], 162.5, cm, 05/15/20 10:27:00 EST, Height, 103, kg, 04/10/20 11:20:00 EST, Dry Weight Start Date: 07/22/20 Status: Ordered morphine 15 mg/8 to 12 hr oral tablet, extended release 1 tablet = 15 mg, By Mouth, Every 8 hours, PRN Pain , Moderate, On substance agreement evaluated every 3 to 6 months, # 90 tablet, 0 Refills, Maintenance, 02/24/21 14:29:00 EST, [facility]/pharmacy #[id number], parital fill upon patient request, 162.5, cm, 01/29... Start Date: 02/24/21 Stop Date: 03/26/21 Status: Ordered morphine 30 mg/8 to 12 hr oral tablet, extended release 1 tablet = 30 mg, By Mouth, 3 times a day, OPIATE AGREEMENT evaluated every 3 to 6 months, # 84 tablet, 0 Refills, Maintenance, 02/24/21 14:29:00 EST, [facility]/pharmacy #2339, may fill for less, 162.5, cm, 01/29/21 12:38:00 EST, Height, 103, kg, 04/10/20... Start Date: 02/24/21 Stop Date: 03/24/21 Status: Ordered Multivitamin Daily, 0 Refills, Maintenance, 05/25/16 13:36:30 Start Date: 05/25/16 Status: Ordered Nicoderm C-Q 21 mg/24 hr transdermal film, extended release 1 patch, Topically, Daily, # 30 patch, 3 Refills, Maintenance, 08/25/19 16:23:00 EDT, Patch, [facility]/pharmacy #2339, 157, cm, 08/25/19 15:55:00 EDT, Height Start Date: 08/25/19 Status: Ordered [facility] use with inhaler [facility] use with inhaler, See Instructions, # 1 [...] Refills, Maintenance, 10/17/20 12:35:00 EDT, [id number], 162.5, cm, 05/15/20 10:27:00 EST, Height, 103, [...] tablet, 1 Refills, Maintenance, 09/02/20 8:48:00 EDT, [id number], 162.5, cm, 05/15/20 10:27:00 EST, Height, 103, kg, 04/10/20 11:20:00 EST, Dry Weight Start Date: 09/02/20 Status: Ordered Problem List Condition Effective Dates Status Health Status Inform ant Asthma(Confirmed) Active Atrial fibrillation(Confirmed) Active Back pain(Confirmed) 1 Active Major depression, chronic(Confirmed) Active CHF (congestive heart failur e) ([id number]% on echo 2019)(Confirmed) Active Continuous opioid dependence(Confirmed) [...]
--- OUTSIDE RECORDS SUMMARY | 2023-08-02 08:37 | XMS_ITS | Continuity of Care Document ---
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 no contraindications per patient 5Admin Note: [facility] 6Admin Note: [employer],[place] 7Admin Note: Novaritis Medications amLODIPine 10 mg oral tablet 1 tablet, By Mouth, Daily, # 90 tablet, 1 Refills, [facility] [address], 157.48, cm, 08/12/21 10:44:00 EDT, Height, 111, kg, 06/10/21 15:06:00 EDT, Dry Weight Start Date: 10/03/21 Status: Ordered ARIPiprazole 5 mg oral tablet 1, tablet, By Mouth, Daily, for 90 days, TO BE COMBINED WITH THE CITALOPRAM THERAPY, # 90 tablet, Refills 3, Tot. Refills 3, Physician Stop 08/01/22 9:00:00 EDT, 08/06/21 9:00:00 EDT, Route to Pharmacy Electronically, [facility]/pharmacy #2339, 157.48, cm, 0... Start Date: 08/06/21 Stop Date: 08/01/22 Status: Ordered aspirin 81 mg oral delayed release tablet 81 mg, By Mouth, Daily, # 30 tablet, Refills 11, Tot. Refills 11, Maintenance, 06/12/21 9:27:00 EDT, Route to Pharmacy Electronically, [facility], Partial fill upon patient request if the prescription is for a schedule II opioid drug., 1... Start Date: 06/12/21 Stop Date: 06/07/22 Status: Ordered Ativan 0.5 mg oral tablet 1 tablet = 0.5 mg, By Mouth, Daily at bedtime, PRN as needed for anxiety, # 30 tablet, 1 Refills, Maintenance, 08/06/21 9:02:00 EDT, Tablet, [facility]/pharmacy #2339, Partial fill upon patient request if the prescription is for a schedule II opioid drug., 1... Start Date: 08/06/21 Status: Ordered citalopram 40 mg oral tablet 1 tablet, By Mouth, Daily, for 90 days, # 90 tablet, 3 Refills, Physician Stop 08/01/22 9:01:00 EDT, 08/06/21 9:01:00 EDT, [facility]/pharmacy #2339, 157.48, cm, 08/05/21 14:31:00 EDT, Height, [...] 1 each, 11 Refills, 06/02/21 14:01:00 EDT, [facility]/pharmacy #2339, 2 puffs Inhalation 2 times a day, 160, cm, 06/02/21 13:26:00 EDT, Height, 103, kg, 04/10/20 11:20:00 EST, Dry Weight Start Date: 06/02/21 Status: Ordered Entresto 24 mg-26 mg oral tablet 1 tablet, By Mouth, 2 times a day, # 60 tablet, 11 Refills, [facility] [address]38, 30, TAKE 1 TABLET BY MOUTH TWICE [...] 08/06/21 9:01:00 EDT, Route to Pharmacy Electronically, [facility]/pharmacy #2339, 157.48, cm, 08/05/21 14:31:00 EDT, Height, [...] of lasix that day and call your receiving associate's office for a... Start Date: 06/12/21 Status: Ordered Lipitor 80 mg oral tablet 1 tablet = 80 mg, By Mouth, Daily at bedtime, # 30 tablet, 11 Refills, Maintenance, 06/12/21 9:27:00 EDT, Tablet, [facility], Partial fill upon patient request if the prescription is for a schedule II opioid drug., 157.48, cm, 06/10/21 1... Start Date: 06/12/21 Status: Ordered metoprolol 100 mg oral tablet, extended release 100 mg, 1, tablet, By Mouth, Daily, # 90 tablet, Refills 3, Tot. Refills 3, Maintenance, 09/11/21 12:08:00 EDT, Route to Pharmacy Electronically, [facility]/pharmacy #2339, 157.48, cm, 08/12/21 10:44:00 EDT, Height, [...] tablet, 0 Refills, Maintenance, 08/19/21 14:03:00 EDT, [facility]/pharmacy #2339, parital fill upon patient request, 157.48, [...] 5 Refills, Maintenance, 06/09/21 15:31:00 EDT, Tablet, [facility]/pharmacy #2339, Partial fill upon patient request if [...] each, 1 Refills, Maintenance, 08/05/21 15:00:00 EDT, [facility]/pharmacy #2339, Partial fill upon patient request if the prescription is for a schedul... Start Date: 08/05/21 Status: Ordered torsemide 5 mg oral tablet 2 tablet, By Mouth, Daily, # 180 tablet, 1 Refills, [facility]03, 157.48, cm, 08/12/21 10:44:00 EDT, Height, 111, kg, 06/10/21 15:06:00 EDT, Dry Weight Start Date: 09/19/21 Status: Ordered warfarin 5 mg oral tablet 0.5 tablet = 2.5 mg, By Mouth, Daily, Goal INR 2-3 Please follow up with your coumadin clinic, # [id number], 0 Refills, Maintenance, 06/12/21 9:27:00 EDT, Tablet, [facility], Partial fill upon patient request if the prescription is for a... Start Date: 06/12/21 Status: Ordered Problem List Condition Effective Dates Status Health Status Inform ant Asthma(Confirmed) Active Atrial fibrillation(Confirmed) Active Back pain(Confirmed) 1 Active Major depression, chronic(Confirmed) Active CHF (congestive heart failur e) (LWZF32-67% on echo 2019)(Confirmed) Active Continuous opioid dependence(Confirmed) [...]
--- OUTSIDE RECORDS SUMMARY | 2023-08-02 08:37 | XMS_ITS | Continuity of Care Document ---
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 Refills 11, Maintenance, 07/31/19 14:19:00 EDT, Route to Pharmacy Electronically, [facility]/pharmacy #2339, 157, cm, 07/31/19 13:53:00 EDT, Height, 1... Start Date: 07/31/19 Status: Ordered amLODIPine 5 mg oral tablet 5 mg, 1, tablet, By Mouth, Daily, # 90 tablet, Refills 0, Tot. Refills 0, Maintenance, 05/19/19 14:39:00 EST, Route to Pharmacy Electronically, [facility]/pharmacy #2339, 157, cm, 04/21/19 10:26:00 EST, Height, 104, kg, 08/03/17 12:54:00 EDT, Dry Weight Start Date: 05/19/19 Stop Date: 08/17/19 Status: Ordered amLODIPine 5 mg oral tablet 1 tablet = 5 mg, By Mouth, Daily, # 90 tablet, 1 Refills, Maintenance, 10/12/19 11:34:00 EDT, [facility]/pharmacy #2339, 157, cm, 08/25/19 [...] 08/04/17 9:05:52 EDT, Route to Pharmacy Electronically, [id number], [facility] 3 Start Date: 08/04/17 Status: [...] tablet, 1 Refills, Maintenance, 10/03/19 13:25:00 EDT, [facility]264, 157, cm, 08/25/19 15:55:00 EDT, Height Start [...] tablet, 0 Refills, Maintenance, 10/10/19 14:02:00 EDT, [facility]/pharmacy #2339, parital fill upon patient request, 157, cm, ... Start Date: 10/10/19 Stop Date: 11/09/19 Status: Ordered morphine 30 mg/8 to 12 hr oral tablet, extended release 1 tablet = 30 mg, By Mouth, 3 times a day, OPIATE AGREEMENT evaluated every 3 to 6 months, # 84 tablet, 0 Refills, Maintenance, 10/10/19 14:02:00 EDT, [facility]/pharmacy #2339, may fill for less, 157, [...] 0 Refills, Soft Stop, 05/10/19 16:02:00 EST, [facility]/pharmacy #2339, 157, cm, 04/21/19 10:26:00 EST, Height, 104, kg, 08/03/17 12:... Start Date: 05/10/19 Status: Ordered Nicoderm C-Q 21 mg/24 hr transdermal film, extended release 1 patch, Topically, Daily, # 30 patch, 3 Refills, Maintenance, 08/25/19 16:23:00 EDT, Patch, [facility]/pharmacy #2339, 157, cm, 08/25/19 15:55:00 EDT, Height Start Date: 08/25/19 Status: Ordered [facility] use with inhaler [facility] use with inhaler, See Instructions, # [...] 14:55:12 EDT, Aerosol, Route to Pharmacy Electronically, [id number], [facility]/pharmacy #2339 Start Date: 10/28/18 Status: Ordered [...] 10/23/19 15:22:00 EDT, Route to Pharmacy Electronically, [facility]/pharmacy #2339, 156.5, cm, 10/20/19 16:01:00 EDT, Height Start Date: 10/23/19 Status: Ordered torsemide 5 mg oral tablet 1 tablet = 5 mg, By Mouth, Daily, # 30 tablet, 11 Refills, Maintenance, 10/20/19 16:34:00 EDT, [facility]/pharmacy #2339, 156.5, cm, 10/20/19 16:01:00 EDT, [...]
--- OUTSIDE RECORDS SUMMARY | 2023-08-02 08:38 | XMS_ITS | Continuity of Care Document ---
Author Organization [facility] Address Unknown Care Team Providers Care Raise Driller Name Role Phone Jose Martinez MD Primary Care Physician [place] [facility] [place] 05/12/21 [facility] Encounter Diagnosis Annual physical exam(Discharge Diagnosis) - 05/05/21 Continuous opioid dependence(Discharge Diagnosis) - 05/05/21 Atrial fibrillation(Discharge Diagnosis) - 05/05/21 CHF (congestive heart failure) ([id number]% on echo 2019)(Discharge Diagnosis) - 05/05/21 Asthma(Discharge Diagnosis) - 05/05/21 Major depression in complete remission(Discharge Diagnosis) - 05/05/21 PRINCESS - Obstructive sleep apnea(Discharge Diagnosis) - 05/05/21 Severe obesity(Discharge Diagnosis) - 05/05/21 Attending Physician: Jose Martinez MD Allergies, Adverse [...] inactive(oldterm) 7 01/21/09 Given 1Result Comment: [facility]:[id number] 2Result Comment: [01/19/2018] [id number] 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 no contraindications per patient 5Admin Note: [facility] 6Admin Note: [employer],[place] 7Admin Note: Novaritis Medications ARIPiprazole 5 mg oral tablet 1, tablet, By Mouth, Daily, TO BE COMBINED WITH THE CITALOPRAM THERAPY, # 90 tablet, Refills 1, Route to Pharmacy Electronically, [facility], 162.5, cm, 12/27/20 14:39:00 EDT, Height, 103, kg, 04/10/20 11:20:00 EST, Dry Weight Start Date: 01/16/21 Status: Ordered Ativan 0.5 mg oral tablet 1 tablet = 0.5 mg, By Mouth, 3 times a day, PRN anxiety, # 90 tablet, 2 Refills, Maintenance, 02/24/21 14:29:00 EST, Tablet, [facility]/pharmacy #2339, 162.5, cm, 01/29/21 12:38:00 EST, Height, 103, kg, 04/10/20 11:20:00 EST, Dry Weight Start Date: 02/24/21 Status: Ordered atorvastatin 40 mg oral tablet 1 tablet = 40 mg, By Mouth, Daily, # 90 tablet, 1 Refills, Maintenance, 11/16/19 10:37:00 EDT, Tablet, [facility]/pharmacy #2339, 156.6, cm, 10/23/19 15:34:00 EDT, Height, Dry Weight Start Date: 11/16/19 Status: Ordered citalopram 40 mg oral tablet 1 tablet, By Mouth, Daily, # 90 tablet, 1 Refills, [facility] 19760, 162.5, cm, 01/29/21 12:38:00 EST, Height, 103, [...] months, # 28 tablet, 0 Refills, Maintenance, 05/12/21 15:33:00 EST, Tablet, [facility]/pharmacy #2339, parital fill upon patient request, 162.5, cm, 05/12/21 9... Start Date: 05/12/21 Status: Ordered Dulera 100 mcg-5 mcg/inh inhalation aerosol 2 puffs, Inhalation, 2 times a day, # 13 each, 11 Refills, [facility], 30, INHALE 2 PUFFS TWICE A DAY, 162.5, cm, 01/29/21 12:38:00 EST, Height, 103, kg, 04/10/20 11:20:00 EST, Dry Weight Start Date: 04/08/21 Status: Ordered ferrous sulfate 325 mg oral enteric coated tablet 1, tablet, By Mouth, 2 times a day, # 180 tablet, Refills 1, Route to Pharmacy Electronically, [facility] 87497, 162.5, cm, 01/29/21 12:38:00 EST, Height, 103, kg, 04/10/20 11:20:00 EST, Dry Weight Start Date: 04/07/21 Status: Ordered lisinopril 10 mg oral tablet 1, tablet, By Mouth, Daily, # 90 tablet, Refills 3, Route to Pharmacy Electronically, [facility] 25895, 162.5, cm, 05/15/20 10:27:00 EST, Height, 103, kg, 04/10/20 11:20:00 EST, Dry Weight Start Date: 11/13/20 Status: Ordered Metoprolol Succinate ER 25 mg oral tablet, extended release 1 tablet, By Mouth, Daily, # 90 tablet, 1 Refills, Maintenance, 04/02/21 9:43:00 EST, [facility]/pharmacy #2339, 162.5, cm, 01/29/21 12:38:00 EST, Height, 103, kg, 04/10/20 11:20:00 EST, Dry Weight Start Date: 04/02/21 Status: Ordered morphine 15 mg/8 to 12 hr oral tablet, extended release 1 tablet = 15 mg, By Mouth, Every 8 hours, PRN Pain , Moderate, On substance agreement evaluated every 3 to 6 months, # 90 tablet, 0 Refills, Maintenance, 05/12/21 15:33:00 EST, [facility]/pharmacy #2339, parital fill upon patient request, 162.5, cm, 05/12... Start Date: 05/12/21 Stop Date: 06/11/21 Status: Ordered morphine 30 mg/8 to 12 hr oral tablet, extended release 1 tablet = 30 mg, By Mouth, 3 times a day, OPIATE AGREEMENT evaluated every 3 to 6 months, # 84 tablet, 0 Refills, Maintenance, 05/12/21 15:33:00 EST, [facility]/pharmacy #2339, may fill for less, 162.5, cm, 05/12/21 9:43:00 EST, Height, 103, kg, 04/10/20 1... Start Date: 05/12/21 Stop Date: 06/09/21 Status: Ordered Multivitamin Daily, 0 Refills, Maintenance, 05/25/16 13:36:30 Start Date: 05/25/16 Status: Ordered Nicoderm C-Q 21 mg/24 hr transdermal film, extended release 1 patch, Topically, Daily, # 30 patch, 3 Refills, Maintenance, 08/25/19 16:23:00 EDT, Patch, [facility]/pharmacy #2339, 157, cm, 08/25/19 15:55:00 EDT, Height Start Date: 08/25/19 Status: Ordered [facility] use with inhaler [facility] use with inhaler, See Instructions, [...] tablet, 1 Refills, Maintenance, 04/02/21 21:23:00 EST, [facility]/pharmacy #2339, 162.5, cm, 01/29/21 12:38:00 EST, Height, 103, kg, 04/10/20 11:20:00 EST, Dry Weight Start Date: 04/02/21 Status: Ordered Ventolin HFA 108 mcg/inh inhalation aerosol with adapter 2 puffs, Inhalation, Daily, PRN NEEDED FOR WHEEZING, for 90 days, # 54 each, 1 Refills, Physician Stop, [facility]60, 162.5, cm, 01/29/21 12:38:00 EST, Height, 103, kg, 04/10/20 11:20:00 EST, Dry Weight Start Date: 04/07/21 Stop Date: 07/06/21 Status: Ordered warfarin 5 mg oral tablet 1 tablet, By Mouth, Daily, # 90 tablet, 1 Refills, [facility], 162.5, cm, 01/29/21 12:38:00 EST, Height, 103, kg, 04/10/20 11:20:00 EST, Dry Weight Start Date: 03/03/21 Status: Ordered warfarin 5 mg oral tablet See Instructions, TAKE 1 TABLET BY MOUTH EVERY DAY, # 90 tablet, 3 Refills, [facility]266, 162.5,cm, 01/29/21 12:38:00 EST, Height, 103, kg, 04/10/20 11:20:00 EST, Dry Weight Start Date: 05/05/21 Status: Ordered Problem List Condition Effective Dates Status Health Status Inform ant Asthma(Confirmed) Active Atrial fibrillation(Confirmed) Active Back pain(Confirmed) 1 Active Major depression, chronic(Confirmed) Active CHF (congestive heart failur e) (QZTF49-32% on echo 2019)(Confirmed) Active Continuous opioid dependence(Confirmed) [...] Service Informant Annual physical exam Discharge Diagnosis 05/05/21 Asthma Discharge Diagnosis 05/05/21 Atrial fibrillation Discharge Diagnosis 05/05/21 CHF (congestive heart failure) (FXBV75-15% on 2019) Discharge Diagnosis 05/05/21 Continuous opioid dependence Discharge Diagnosis 05/05/21 Major depression in complete remission Discharge Diagnosis 05/05/21 PRINCESS - Obstructive sleep apnea Discharge Diagnosis 05/05/21 Severe obesity Discharge Diagnosis 05/05/21 Vital Signs Most recent to oldest [Reference Range]: 1 2 Height 162.5 cm (05/06/21 10:26 AM) 162.5 cm (05/05/21 9:23 AM) Weight 113.2 kg (05/06/21 10:26 AM) 113.2 kg (05/05/21 9:23 AM) Oxygen Saturation [94-100 %] 96 % (05/05/21 9:23 AM) Pulse Rate [55-90 bpm] 76 bpm (05/05/21 9:23 AM) Body Mass Index [18.5-24.99] 42.87 *>HHI* (05/05/21 9:23 AM) Blood Pressure [90-138/55-84 mm Hg] 120/ 84mm Hg (05/05/21 9:23 AM) Blood pressure sites Arm, left (05/05/21 9:23 AM) Social History Social History Type Response Smoking Status 5-9 cigarettes (betw een 1/4 to 1/2 pack)/day in last 30 days; Other: Started at 23 years old; entered on: 01/18/20 Sex
--- OUTSIDE RECORDS SUMMARY | 2023-08-02 08:38 | XMS_ITS | Continuity of Care Document ---
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 patient 5Admin Note: [facility] [facility] 6Admin Note: [employer],[place] 7Admin Note: Novaritis Medications ARIPiprazole 5 mg oral tablet 1, tablet, By Mouth, Daily, TO BE COMBINED WITH THE CITALOPRAM THERAPY, # 90 tablet, Refills 1, Route to Pharmacy Electronically, [facility]222, 162.5, cm, 12/27/20 14:39:00 EDT, Height, 103, kg, 04/10/20 11:20:00 EST, Dry Weight Start Date: 01/16/21 Status: Ordered Ativan 0.5 mg oral tablet 1 tablet = 0.5 mg, By Mouth, 3 times a day, PRN anxiety, # 90 tablet, 2 Refills, Maintenance, 10/14/20 13:39:00 EDT, Tablet, [facility]/pharmacy #2339, 162.5, cm, 05/15/20 10:27:00 EST, Height, 103, kg, 04/10/20 11:20:00 EST, Dry Weight Start Date: 10/14/20 Status: Ordered atorvastatin 40 mg oral tablet 1 tablet = 40 mg, By Mouth, Daily, # 90 tablet, 1 Refills, Maintenance, 11/16/19 10:37:00 EDT, Tablet, [facility]/pharmacy #2339, 156.6, cm, 10/23/19 15:34:00 EDT, Height, Dry Weight Start Date: 11/16/19 Status: Ordered citalopram 40 mg oral tablet 1 tablet, By Mouth, Daily, # 90 tablet, 1 Refills, Maintenance, 10/28/20 14:21:00 EDT, [facility]/pharmacy#2339, 162.5, cm, 05/15/20 10:27:00 EST, Height, [...] 0 Refills, Maintenance, 01/15/21 17:11:00 EDT, Tablet, [facility]/pharmacy #2339, parital fill upon patient request, 162.5, cm, 12/27/20 1... Start Date: 01/15/21 Status: Ordered Dulera 100 mcg-5 mcg/inh inhalation aerosol 2 puffs, Inhalation, 2 times a day, # 13 Unknown, 11 Refills, Maintenance, 07/22/20 7:52:00 EDT, [facility]34, 30, INHALE 2 PUFFS TWICE A DAY, 162.5, cm, 05/15/20 10:27:00 EST, Height, 103, kg, 04/10/20 11:20:00 EST, Dry Weight Start Date: 07/22/20 Status: Ordered ferrous sulfate 325 mg oral enteric coated tablet 1, tablet, By Mouth, 2 times a day, # 180 tablet, Refills 1, Tot. Refills 0, Maintenance, 10/17/20 7:27:00 EDT, Route to Pharmacy Electronically, [facility] 80540, 162.5, cm, 05/15/20 10:27:00 EST, Height, 103, kg, 04/10/20 11:20:00 EST, Dry Weight Start Date: 10/17/20 Status: Ordered lisinopril 10 mg oral tablet 1, tablet, By Mouth, Daily, # 90 tablet, Refills 3, Route to Pharmacy Electronically, [facility] 57335, 162.5, cm, 05/15/20 10:27:00 EST, Height, 103, kg, 04/10/20 11:20:00 EST, Dry Weight Start Date: 11/13/20 Status: Ordered Metoprolol Succinate ER 25 mg oral tablet, extended release 1 tablet, By Mouth, Daily, # 90 tablet, 1 Refills, Maintenance, 07/22/20 7:32:00 EDT, [facility] STORE 02701, 162.5, cm, 05/15/20 10:27:00 EST, Height, 103, kg, 04/10/20 11:20:00 EST, Dry Weight Start Date: 07/22/20 Status: Ordered morphine 15 mg/8 to 12 hr oral tablet, extended release 1 tablet = 15 mg, By Mouth, Every 8 hours, PRN Pain , Moderate, On substance agreement evaluated every 3 to 6 months, # 90 tablet, 0 Refills, Maintenance, 01/15/21 17:11:00 EDT, [facility]/pharmacy #2339, parital fill upon patient request, 162.5, cm, 12/27... Start Date: 01/15/21 Stop Date: 02/14/21 Status: Ordered morphine 30 mg/8 to 12 hr oral tablet, extended release 1 tablet = 30 mg, By Mouth, 3 times a day, OPIATE AGREEMENT evaluated every 3 to 6 months, # 84 tablet, 0 Refills, Maintenance, 01/15/21 17:11:00 EDT, [facility]/pharmacy #2339, may fill for less, 162.5, cm, 12/27/20 14:39:00 EDT, Height, 103, kg, 04/10/20... Start Date: 01/15/21 Stop Date: 02/12/21 Status: Ordered Multivitamin Daily, 0 Refills, Maintenance, 05/25/16 13:36:30 Start Date: 05/25/16 Status: Ordered Nicoderm C-Q 21 mg/24 hr transdermal film, extended release 1 patch, Topically, Daily, # 30 patch, 3 Refills, Maintenance, 08/25/19 16:23:00 EDT, Patch, [facility]/pharmacy #2339, 157, cm, 08/25/19 15:55:00 [...] Refills, Maintenance, 10/17/20 12:35:00 EDT, [facility], 162.5, cm, 05/15/20 10:27:00 EST, Height, 103, [...] Refills, Maintenance, 09/02/20 8:48:00 EDT, [facility], 162.5, cm, 05/15/20 10:27:00 EST, Height, 103, kg, 04/10/20 11:20:00 EST, Dry Weight Start Date: 09/02/20 Status: Ordered Problem List Condition Effective Dates Status Health Status Inform ant Asthma(Confirmed) Active Atrial fibrillation(Confirmed) Active Back pain(Confirmed) 1 Active Major depression, chronic(Confirmed) Active CHF (congestive heart failur e) (LWEX97-33% on echo 2019)(Confirmed) Active Continuous opioid dependence(Confirmed) [...]
--- OUTSIDE RECORDS SUMMARY | 2023-08-02 08:38 | XMS_ITS | Continuity of Care Document ---
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 no contraindications per patient 5Admin Note: [employer] [facility] 6Admin Note: [employer],[place] 7Admin Note: Novaritis Medications ARIPiprazole 5 mg oral tablet 1, tablet, By Mouth, Daily, TO BE COMBINED WITH THE CITALOPRAM THERAPY, # 90 tablet, Refills 1, Route to Pharmacy Electronically, [facility] STORE [facility]4319, 162.5, cm, 12/27/20 14:39:00 EDT, Height, 103, kg, 04/10/20 11:20:00 EST, Dry Weight Start Date: 01/16/21 Status: Ordered Ativan 0.5 mg oral tablet 1 tablet = 0.5 mg, By Mouth, 3 times a day, PRN anxiety, # 90 tablet, 2 Refills, Maintenance, 10/14/20 13:39:00 EDT, Tablet, [facility]/pharmacy #2339, 162.5, cm, 05/15/20 10:27:00 EST, Height, 103, kg, 04/10/20 11:20:00 EST, Dry Weight Start Date: 10/14/20 Status: Ordered atorvastatin 40 mg oral tablet 1 tablet = 40 mg, By Mouth, Daily, # 90 tablet, 1 Refills, Maintenance, 11/16/19 10:37:00 EDT, Tablet, [facility]/pharmacy #2339, 156.6, cm, 10/23/19 15:34:00 EDT, Height, Dry Weight Start Date: 11/16/19 Status: Ordered citalopram 40 mg oral tablet 1 tablet, By Mouth, Daily, # 90 tablet, 1 Refills, Maintenance, 10/28/20 14:21:00 EDT, [facility]/pharmacy#2339, 162.5, cm, 05/15/20 10:27:00 EST, Height, [...] 0 Refills, Maintenance, 01/15/21 17:11:00 EDT, Tablet, [facility]/pharmacy #2339, parital fill upon patient request, 162.5, cm, 12/27/20 1... Start Date: 01/15/21 Status: Ordered Dulera 100 mcg-5 mcg/inh inhalation aerosol 2 puffs, Inhalation, 2 times a day, # 13 Unknown, 11 Refills, Maintenance, 07/22/20 7:52:00 EDT, [facility], 30, INHALE 2 PUFFS TWICE A DAY, 162.5, cm, 05/15/20 10:27:00 EST, Height, 103, kg, 04/10/20 11:20:00 EST, Dry Weight Start Date: 07/22/20 Status: Ordered ferrous sulfate 325 mg oral enteric coated tablet 1, tablet, By Mouth, 2 times a day, # 180 tablet, Refills 1, Tot. Refills 0, Maintenance, 10/17/20 7:27:00 EDT, Route to Pharmacy Electronically, [facility] 660[facility], 162.5, cm, 05/15/20 10:27:00 EST, Height, 103, kg, 04/10/20 11:20:00 EST, Dry Weight Start Date: 10/17/20 Status: Ordered lisinopril 10 mg oral tablet 1, tablet, By Mouth, Daily, # 90 tablet, Refills 3, Route to Pharmacy Electronically, [facility] 368[facility], 162.5, cm, 05/15/20 10:27:00 EST, Height, 103, kg, 04/10/20 11:20:00 EST, Dry Weight Start Date: 11/13/20 Status: Ordered Metoprolol Succinate ER 25 mg oral tablet, extended release 1 tablet, By Mouth, Daily, # 90 tablet, 1 Refills, Maintenance, 07/22/20 7:32:00 EDT, [facility] STORE 21199, 162.5, cm, 05/15/20 10:27:00 EST, Height, 103, kg, 04/10/20 11:20:00 EST, Dry Weight Start Date: 07/22/20 Status: Ordered morphine 15 mg/8 to 12 hr oral tablet, extended release 1 tablet = 15 mg, By Mouth, Every 8 hours, PRN Pain , Moderate, On substance agreement evaluated every 3 to 6 months, # 90 tablet, 0 Refills, Maintenance, 01/15/21 17:11:00 EDT, [facility]/pharmacy #2339, parital fill upon patient request, 162.5, cm, 12/27... Start Date: 01/15/21 Stop Date: 02/14/21 Status: Ordered morphine 30 mg/8 to 12 hr oral tablet, extended release 1 tablet = 30 mg, By Mouth, 3 times a day, OPIATE AGREEMENT evaluated every 3 to 6 months, # 84 tablet, 0 Refills, Maintenance, 01/15/21 17:11:00 EDT, [facility]/pharmacy #2339, may fill for less, 162.5, cm, 12/27/20 14:39:00 EDT, Height, 103, kg, 04/10/20... Start Date: 01/15/21 Stop Date: 02/12/21 Status: Ordered Multivitamin Daily, 0 Refills, Maintenance, 05/25/16 13:36:30 Start Date: 05/25/16 Status: Ordered Nicoderm C-Q 21 mg/24 hr transdermal film, extended release 1 patch, Topically, Daily, # 30 patch, 3 Refills, Maintenance, 08/25/19 16:23:00 EDT, Patch, [facility]/pharmacy #2339, 157, cm, 08/25/19 15:55:00 EDT, [...] Refills, Maintenance, 10/17/20 12:35:00 EDT, [facility], 162.5, cm, 05/15/20 10:27:00 EST, Height, 103, [...] tablet, 1 Refills, Maintenance, 09/02/20 8:48:00 EDT, [facility], 162.5, cm, 05/15/20 10:27:00 EST, Height, 103, kg, 04/10/20 11:20:00 EST, Dry Weight Start Date: 09/02/20 Status: Ordered Problem List Condition Effective Dates Status Health Status Inform ant Asthma(Confirmed) Active Atrial fibrillation(Confirmed) Active Back pain(Confirmed) 1 Active Major depression, chronic(Confirmed) Active CHF (congestive heart failur e) ([id number]% on echo 2019)(Confirmed) Active Continuous opioid dependence(Confirmed) [...]
--- OUTSIDE RECORDS SUMMARY | 2023-08-02 08:38 | XMS_ITS | Continuity of Care Document ---
Author Organization [facility] ter Address [address] [place] [address]- Care Team Providers Care Fiction And Nonfiction Prose Writer Name Role Phone Jose Martinez MD Primary Care Physician [phone] Encounter [facility] Date(s): 01/18/20 - 01/22/[address] [address]- 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 Refills 11, Maintenance, 07/31/19 14:19:00 EDT, [facility], cm, 07/31/19 13:53:00 EDT, Height, 1... Start Date: 07/31/19 Status: Ordered Ativan 0.5 mg oral tablet 1 tablet = 0.5 mg, By Mouth, 3 times a day, PRN anxiety, # 90 tablet, 2 Refills, Maintenance, 01/11/20 13:48:00 EDT, [facility], cm, 01/09/20 11:41:00 EDT, Height, Dry Weight Start Date: 01/11/20 Status: Ordered atorvastatin 40 mg oral tablet 1 tablet = 40 mg, By Mouth, Daily, # 90 tablet, 1 Refills, Maintenance, 11/16/19 10:37:00 EDT, [facility], cm, 10/23/19 15:34:00 EDT, Height, Dry Weight Start Date: 11/16/19 Status: Ordered citalopram 40 mg oral tablet 1 tablet, By Mouth, Daily, # 90 tablet, 1 Refills, Maintenance, 10/03/19 13:25:00 EDT, [facility] STORE [address]84, 157, cm, 08/25/19 15:55:00 EDT, Height Start [...] 0 Refills, Maintenance, 12/21/19 11:53:00 EDT, Tablet, [facility]/pharmacy #2339, parital fill upon patient request, 156.6, cm, 10/23/19 1... Start Date: 12/21/19 Status: Ordered Dulera 100 mcg-5 mcg/inh inhalation aerosol 2 puffs, Inhalation, 2 times a day, # 1 each, 11 Refills, Maintenance, 07/31/19 14:15:00 EDT, Aerosol, [facility]/pharmacy #2339, 2 puffs Inhalation 2 times a day, 157, cm, 07/31/19 13:53:00 EDT, Height, 104, kg, 08/03/17 12:54:00 EDT, Dry Weight Start Date: 07/31/19 Status: Ordered ferrous sulfate 325 mg oral enteric coated tablet 325 mg, By Mouth, 2 times a day, # 60 tablet, Refills 0, Tot. Refills 0, Maintenance, 01/22/20 15:57:00 EST, Route to Pharmacy Electronically, [facility]/pharmacy #2339, 160, cm, 01/22/20 7:53:00 EST, Height, 104, kg, 01/19/20 3:57:00 EDT, Dry Weight Start Date: 01/22/20 Stop Date: 02/21/20 Status: Ordered Lasix 40 mg oral tablet 40 mg, 1, tablet, By Mouth, Daily, # 30 tablet, Refills 0, Tot. Refills 0, Maintenance, 01/22/20 15:57:00 EST, Route to Pharmacy Electronically, [facility]/pharmacy #2339, 160, cm, 01/22/20 7:53:00 EST, Height, 104, kg, 01/19/20 3:57:00 EDT, Dry Weight Start Date: 01/22/20 Stop Date: 02/21/20 Status: Ordered lisinopril 5 mg oral tablet 5 mg, 1, tablet, By Mouth, Daily, # 30 tablet, Refills 0, Tot. Refills 0, Maintenance, 01/22/20 15:57:00 EST, Route to Pharmacy Electronically, [facility]/pharmacy #2339, 160, cm, 01/22/20 7:53:00 EST, [...] tablet, 0 Refills, Maintenance, 01/11/20 13:48:00 EDT, [facility]/pharmacy #2339, parital fill upon patient request, 156.6, cm, 01/08... Start Date: 01/11/20 Stop Date: 02/10/20 Status: Ordered morphine 30 mg/8 to 12 hr oral tablet, extended release 1 tablet = 30 mg, By Mouth, 3 times a day, OPIATE AGREEMENT evaluated every 3 to 6 months, # 84 tablet, 0 Refills, Maintenance, 12/21/19 11:53:00 EDT, [facility]/pharmacy #2339, may fill for less, 156.6, cm, 10/23/19 15:34:00 EDT, Height, Dry Weight Start Date: 12/21/19 Stop Date: 01/18/20 Status: Ordered Multivitamin Daily, 0 Refills, Maintenance, 05/25/16 13:36:30 Start Date: 05/25/16 Status: Ordered Nicoderm C-Q 21 mg/24 hr transdermal film, extended release 1 patch, Topically, Daily, # 30 patch, 3 Refills, Maintenance, 08/25/19 16:23:00 EDT, Patch, [facility]/pharmacy #2339, 157, cm, 08/25/19 15:55:00 EDT, Height Start Date: 08/25/19 Status: Ordered [facility] use with inhaler [facility] use with inhaler, See [...] EST, Route to Pharmacy Electronically, [facility]/pharmacy #2339, 160, cm, 01/22/20 7:53:00 EST, Height, 104, kg, 01/19/20 3:57:00 EDT, Dry Weight Start Date: 01/22/20 Stop Date: 07/20/20 Status: Ordered Ventolin HFA 108 mcg/inh inhalation aerosol with adapter 2 puffs, Inhalation, 4 times a day, PRN for wheezing, # 8 Gm, 5 Refills, Maintenance, 12/20/19 11:27:00 EDT, Aerosol, [facility]/pharmacy #2339, 156.6, cm, 10/23/19 15:34:00 EDT, [...] 2Right 3Right 11/2008 4advanced right hip OA Procedures Procedure Date Related Diagnosis Body Site Status Ganglion cyst of right dorsal wrist Completed Gastric bypass Completed Hip replacement 1 Complet ed Tubal ligation Completed 1b/l Results Radiology Reports * Exam Date Time Procedure Performing Provider Status 01/18/20 5:27 PM Chest Portable Ludmila Manning; Dari (Verified) Notes: (Chest Portable) Reason For Exam: Chest Pain;Other: RESULT: Chest Portable Chest Portable Hx of Present Illness: Pt states increased weakness over last month. denies cp, reports sob with very little exertion. states gaining weight but not eating much, states feels like abd is bloated and legs are edematous. states no dark bloody stools, no obv source of bleeding.; Reason: Other:; Chest Pain; Clinical Question(s): Other: COMPARISON: 11/01/2011. FINDINGS: LINES AND TUBES: None. LUNGS AND PLEURA: There is prominence of central pulmonary vasculature bilaterally, with increased interstitial opacities in the lungs on each side. Stefano B lines noted in the right lateral lung base. Trace bilateral pleural effusions. No pneumothorax. HEART, MEDIASTINUM AND LIANNA: Mild prominence of the cardiac silhouette. Normal mediastinal and hilar contour. BONES AND SOFT TISSUES: No acute abnormality. IMPRESSION: Increased interstitial opacities with trace pleural effusion and prominence of the cardiac silhouette, compatible with pulmonary edema. WSN: [id number] Ordering Physician: Herlinda Corado Dictated By: Ilana Saba MD Dictated Date/Time: 01/18/20 5:51 pm Reviewed By: Ilana Saba MD Signed By: Ilana Saba MD Signed Date/Time: 01/18/20 5:51 pm Transcribed By: LOS Transcribed Date/Time: 01/18/20 5:49 pm Vital Signs Most recent to oldest [Reference Range]: 1 2 3 Height 160 cm (01/22/20 4:19 PM) 160 cm (01/22/20 7:53 AM) 160 cm (01/22/20 1:52 AM) Weight 113.1 kg (01/22/20 7:02 AM) 112.8 kg (01/21/20 5:40 AM) 116.6 kg (01/19/20 6:53 AM) Oxygen Saturation [94-100 %] 97 % (01/22/20 4:19 PM) 92 % *L* (01/22/20 7:53 AM) 92 % *L* (01/22/20 1:52 AM) Pulse Rate [55-90 bpm] 76 bpm (01/22/20 4:19 PM) 82 bpm (01/22/20 8:24 AM) 82 bpm (01/22/20 7:53 AM) Body Mass Index [18.5-24.99] 45.55 *>HHI* (01/19/20 3:56 AM) Blood Pressure [90-138/55-84 mm Hg] 125/78mm Hg (01/22/20 4:19 PM) 120/69mm Hg (01/22/20 8:24 AM) 120/69mm Hg (01/22/20 8:24 AM) Respiratory Rate [16-30 br/min] 18 br/min (01/22/20 4:19 PM) 18 br/min (01/22/20 3:35 PM) 18 br/min (01/22/20 10:44 AM) Temperature [96.8-100.4 DegF] 97.6 DegF (01/22/20 4:19 PM) 97.4 DegF (01/22/20 7:53 AM) 97.4 DegF (01/22/20 1:52 AM) Liters per Minute 1.5 L/min (01/18/20 7:55 PM) 1.5 L/min (01/18/20 6:26 PM) Mode of Delivery (Oxygen) Room air (01/22/20 4:19 PM) Room air (01/22/20 7:53 AM) Room air (01/22/20 1:52 AM) Blood pressure sites Arm, right (01/22/20 4:19 PM) Arm, left (01/22/20 7:53 AM) Arm, right (01/22/20 1:52 AM) Temperature Route Temporal (01/22/20 4:19 PM) Temporal (01/22/20 7:53 AM) Temporal (01/22/20 1:52 AM) Dry Weight 104 kg (01/19/20 3:56 AM) Weight Obtained Via Bed scale (01/21/20 5:40 AM) Social History Social History Type Response Smoking Status 5-9 cigarettes (betw een 03/25 to 03/23 pack)/day in last 30 days; Other: Started at 23 years old; entered on: 01/18/20 Sex
--- OUTSIDE RECORDS SUMMARY | 2023-08-02 08:38 | XMS_ITS | Continuity of Care Document ---
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 per patient 4Admin Note: [employer] 5Admin Note: [employer],[place] 6Admin Note: Novaritis Medications Abilify 5 mg [...] Refills, Maintenance, 02/26/20 20:28:00 EST, [facility], cm, 01/26/20 9:40:00 EST, Height, 104, kg, 01/19/20 3:57:00 EDT, Dry Weight Start Date: 02/26/20 Status: Ordered atorvastatin 40 mg oral tablet 1 tablet = 40 mg, By Mouth, Daily, # 90 tablet, 1 Refills, Maintenance, 11/16/19 10:37:00 EDT, [facility]t, [facility], 156.6, cm, 10/23/19 15:34:00 EDT, Height, Dry Weight Start Date: 11/16/19 Status: Ordered citalopram 40 mg oral tablet 1 tablet, By Mouth, Daily, # 90 tablet, 1 Refills, Maintenance, 10/03/19 13:25:00 EDT, [facility] STORE [address]62, 157, cm, 08/25/19 15:55:00 EDT, Height Start [...] 0 Refills, Maintenance, 02/07/20 16:16:00 EST, Tablet, [facility]/pharmacy #2339, parital fill upon patient request, 160, cm, 01/26/20 9:4... Start Date: 02/07/20 Status: Ordered Dulera 100 mcg-5 mcg/inh inhalation aerosol 2 puffs, Inhalation, 2 times a day, # 1 each, 11 Refills, Maintenance, 07/31/19 14:15:00 EDT, Aerosol, [facility]/pharmacy #2339, 2 puffs Inhalation 2 times a day, 157, cm, 07/31/19 13:53:00 EDT, Height, 104, kg, 08/03/17 12:54:00 EDT, Dry Weight Start Date: 07/31/19 Status: Ordered ferrous sulfate 325 mg oral enteric coated tablet 325 mg, By Mouth, 2 times a day, # 60 tablet, Refills 1, Tot. Refills 1, Maintenance, 02/16/20 10:07:00 EST, Route to Pharmacy Electronically, [facility]/pharmacy #2339, 160, cm, 01/26/20 9:40:00 EST, Height, 104, kg, 01/19/20 3:57:00 EDT, Dry Weight Start Date: 02/16/20 Status: Ordered Lasix 40 mg oral tablet 40 mg, 1, tablet, By Mouth, Daily, # 30 tablet, Refills 0, Tot. Refills 0, Maintenance, 02/16/20 10:07:00 EST, Route to Pharmacy Electronically, [facility]/pharmacy #2339, 160, cm, 01/26/20 9:40:00 EST, Height, 104, kg, 01/19/20 3:57:00 EDT, Dry Weight Start Date: 02/16/20 Status: Ordered lisinopril 10 mg oral tablet 10 mg, 1, tablet, By Mouth, Daily, # 90 tablet, Refills 0, Tot. Refills 0, Maintenance, 02/26/20 14:41:00 EST, Route to Pharmacy Electronically, [facility]/pharmacy #2339, Partial fill upon patient request [...] tablet, 0 Refills, Maintenance, 02/26/20 20:28:00 EST, [facility]/pharmacy #2339, parital fill upon patient request, 160, cm, ... Start Date: 02/26/20 Stop Date: 03/27/20 Status: Ordered morphine 30 mg/8 to 12 hr oral tablet, extended release 1 tablet = 30 mg, By Mouth, 3 times a day, OPIATE AGREEMENT evaluated every 3 to 6 months, # 84 tablet, 0 Refills, Maintenance, 02/07/20 16:16:00 EST, [facility]/pharmacy #2339, may fill for less, 160, cm, 01/26/20 9:40:00 EST, Height, 104, kg, 01/19/20 3:5... Start Date: 02/07/20 Stop Date: 03/06/20 Status: Ordered Multivitamin Daily, 0 Refills, Maintenance, 05/25/16 13:36:30 Start Date: 05/25/16 Status: Ordered Nicoderm C-Q 21 mg/24 hr transdermal film, extended release 1 patch, Topically, Daily, # 30 patch, 3 Refills, Maintenance, 08/25/19 16:23:00 EDT, Patch, [facility]/pharmacy #2339, 157, cm, 08/25/19 15:55:00 EDT, [...] 9:08:00 EST, Route to Pharmacy Electronically, [facility]/pharmacy #2339, 160, cm, 01/22/20 7:53:00 EST, Height, 104, kg, 01/19/20 3:57:00 EDT, Dry Weight Start Date: 01/22/20 Stop Date: 07/20/20 Status: Ordered Ventolin HFA 108 mcg/inh inhalation aerosol with adapter 2 puffs, Inhalation, 4 times a day, PRN for wheezing, # 8 Gm, 5 Refills, Maintenance, 12/20/19 11:27:00 EDT, Aerosol, [facility]/pharmacy #2339, 156.6, cm, 10/23/19 15:34:00 EDT, Height Start Date: 12/20/19 Status: Ordered warfarin 5 mg oral tablet 1 tablet = 5 mg, By Mouth, Daily, # 30 tablet, 5 Refills, Maintenance, 02/26/20 12:12:00 EST, Tablet, [facility]/pharmacy #2339, 160, cm, 01/26/20 9:40:00 EST, [...]
--- OUTSIDE RECORDS SUMMARY | 2023-08-02 08:38 | XMS_ITS | Continuity of Care Document ---
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 patient 5Admin Note: [facility] 6Admin Note: [employer],[place] 7Admin Note: Novaritis Medications ARIPiprazole 5 mg oral tablet 1, tablet, By Mouth, Daily, TO BE COMBINED WITH THE CITALOPRAM THERAPY, # 90 tablet, Refills 1, Route to Pharmacy Electronically, [facility], 162.5, cm, 12/27/20 14:39:00 EDT, Height, 103, kg, 04/10/20 11:20:00 EST, Dry Weight Start Date: 01/16/21 Status: Ordered Ativan 0.5 mg oral tablet 1 tablet = 0.5 mg, By Mouth, 3 times a day, PRN anxiety, # 90 tablet, 2 Refills, Maintenance, 02/24/21 14:29:00 EST, Tablet, [facility]/pharmacy #2339, 162.5, cm, 01/29/21 12:38:00 EST, Height, 103, kg, 04/10/20 11:20:00 EST, Dry Weight Start Date: 02/24/21 Status: Ordered atorvastatin 40 mg oral tablet 1 tablet = 40 mg, By Mouth, Daily, # 90 tablet, 1 Refills, Maintenance, 11/16/19 10:37:00 EDT, Tablet, [facility]/pharmacy #2339, 156.6, cm, 10/23/19 15:34:00 EDT, Height, Dry Weight Start Date: 11/16/19 Status: Ordered citalopram 40 mg oral tablet 1 tablet, By Mouth, Daily, # 90 tablet, 1 Refills, [facility], 162.5, cm, 01/29/21 12:38:00 EST, Height, 103, [...] 0 Refills, Maintenance, 04/02/21 12:29:00 EST, Tablet, [facility]/pharmacy #2339, parital fill upon patient request, 162.5, cm, 01/29/21 1... Start Date: 04/02/21 Status: Ordered Dulera 100 mcg-5 mcg/inh inhalation aerosol 2 puffs, Inhalation, 2 times a day, # 13 each, 11 Refills, [facility] [address], 30, INHALE 2 PUFFS TWICE A DAY, 162.5, cm, 01/29/21 12:38:00 EST, Height, 103, kg, 04/10/20 11:20:00 EST, Dry Weight Start Date: 04/08/21 Status: Ordered ferrous sulfate 325 mg oral enteric coated tablet 1, tablet, By Mouth, 2 times a day, # 180 tablet, Refills 1, Route to Pharmacy Electronically, [facility], 162.5, cm, 01/29/21 12:38:00 EST, Height, 103, kg, 04/10/20 11:20:00 EST, Dry Weight Start Date: 04/07/21 Status: Ordered lisinopril 10 mg oral tablet 1, tablet, By Mouth, Daily, # 90 tablet, Refills 3, Route to Pharmacy Electronically, [facility], 162.5, cm, 05/15/20 10:27:00 EST, Height, 103, [...] tablet, 0 Refills, Maintenance, 04/02/21 12:29:00 EST, [facility]/pharmacy #2339, parital fill upon patient request, 162.5, cm, 01/29... Start Date: 04/02/21 Stop Date: 05/02/21 Status: Ordered morphine 30 mg/8 to 12 hr oral tablet, extended release 1 tablet = 30 mg, By Mouth, 3 times a day, OPIATE AGREEMENT evaluated every 3 to 6 months, # 84 tablet, 0 Refills, Maintenance, 04/02/21 12:29:00 EST, [facility]/pharmacy #2339, may fill for less, 162.5, cm, 01/29/21 12:38:00 EST, Height, 103, kg, 04/10/20... Start Date: 04/02/21 Stop Date: 04/30/21 Status: Ordered Multivitamin Daily, 0 Refills, Maintenance, 05/25/16 13:36:30 Start Date: 05/25/16 Status: Ordered Nicoderm C-Q 21 mg/24 hr transdermal film, extended release 1 patch, Topically, Daily, # 30 patch, 3 Refills, Maintenance, 08/25/19 16:23:00 EDT, Patch, [facility]/pharmacy #2339, 157, cm, 08/25/19 15:55:00 EDT, Height Start Date: 08/25/19 Status: Ordered [employer] [facility] use with inhaler [facility] use with inhaler, See Instructions, [...] each, 1 Refills, Physician Stop, [facility], 162.5, cm, 01/29/21 12:38:00 EST, Height, 103, kg, 04/10/20 11:20:00 EST, Dry Weight Start Date: 04/07/21 Stop Date: 07/06/21 Status: Ordered warfarin 5 mg oral tablet 1 tablet, By Mouth, Daily, # 90 tablet, 1 Refills, [facility], 162.5, cm, 01/29/21 12:38:00 EST, Height, 103, kg, 04/10/20 11:20:00 EST, Dry Weight Start Date: 03/03/21 Status: Ordered Problem List Condition Effective Dates Status Health Status Inform ant Asthma(Confirmed) Active Atrial fibrillation(Confirmed) Active Back pain(Confirmed) 1 Active Major depression, chronic(Confirmed) Active CHF (congestive heart failur e) ([id number]% on echo 2019)(Confirmed) Active Continuous opioid dependence(Confirmed) [...]
--- OUTSIDE RECORDS SUMMARY | 2023-08-02 08:38 | XMS_ITS | Continuity of Care Document ---
Author Organization [facility] Address [address] [place] [id number]- Care Team Providers Care Verse Writer Name Role Phone Jose Martinez MD Primary Care Physician [phone] Encounter [facility] [place] Date(s): 10/12/22 - 11/11/22 [facility] [address] [place] [address]- Allergies, Adverse Reactions, Alerts Substance Reaction Severity [...] virus vac, H1N1, inactive(oldterm) 7 01/21/09 Given [facility] Comment: [facility]:[id number] 2Result Comment: [01/19/2018] [id number] 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 Start Date: 10/13/21 Status: Ordered amLODIPine 10 mg oral tablet 1 tablet, By Mouth, Daily, # 90 tablet, 3 Refills, Maintenance, 02/23/22 8:50:00 EST, [facility] 7[facility]64, 157.48, cm, 01/20/22 14:40:00 EDT, Height, 111, kg, 06/10/21 15:06:00 EDT, Dry Weight Start Date: 02/23/22 Status: Ordered ARIPiprazole 5 mg oral tablet 1, tablet, By Mouth, Daily, X90 DAYS,INSTR:TO BE COMBINED WITH THE CITALOPRAM THERAPY, # 90 tablet,Refills 1, Maintenance, 07/26/22 7:25:00 EDT, Route to Pharmacy Electronically, [facility] 86096, 157.48, cm, 05/18/22 9:48:00 EST, Height, 111, kg, 03/... Start Date: 07/26/22 Status: Ordered aspirin 81 mg oral delayed release tablet 81 mg, By Mouth, Daily, # 30 tablet, Refills 11, Tot. Refills 11, Maintenance, 06/12/21 9:27:00 EDT, Route to Pharmacy Electronically, [facility], Partial fill upon patient request if the prescription is for a schedule II opioid drug., 1... Start Date: 06/12/21 Stop Date: 06/07/22 Status: Ordered Ativan 0.5 mg oral tablet 1 tablet = 0.5 mg, By Mouth, Daily at bedtime, PRN as needed for anxiety, # 30 tablet, 5 Refills, Maintenance, 10/27/22 13:20:00 EDT, Tablet, [facility]/pharmacy #2545, Partial fill upon patient request if the prescription is for a schedule II opioid drug.,... Start Date: 10/27/22 Status: Ordered atorvastatin 80 mg oral tablet 1 tablet, By Mouth, Daily at bedtime, # 90 tablet, 1 Refills, Maintenance, 10/12/22 12:22:00 EDT, [facility], 157.48, cm, 08/28/22 9:39:00 EDT, Height, 111, kg, 06/10/21 15:06:00 EDT, Dry Weight Start Date: 10/12/22 Status: Ordered citalopram 40 mg oral tablet 1 tablet, By Mouth, Daily, # 90 tablet, 1 Refills, Maintenance, 06/22/22 14:38:00 EDT, [facility], 157.48, cm, 05/18/22 9:48:00 EST, Height, 111, [...] # 90 tablet, 1 Refills, [facility], 90, TAKE 1 TABLET BY MOUTH EVERY [...] each, 11 Refills, Maintenance, 07/08/22 11:55:00 EDT, [facility], 30, INHALE 2 PUFFS TWICE A DAY, 157.48, cm, 05/18/22 9:48:00 EST, Height, 111, kg, 06/10/21 15:06:00 EDT, Dry Weight Start Date: 07/08/22 Status: Ordered Entresto 24 mg-26 mg oral tablet 1 tablet, By Mouth, 2 times a day, # 60 tablet, 11 Refills, Maintenance, 09/21/22 14:36:00 EDT, [facility], 30, TAKE 1 TABLET BY MOUTH TWICE A DAY, 157.48, cm, 08/28/22 9:39:00 EDT, Height, 111,kg, 06/10/21 15:06:00 EDT, Dry Weight Start Date: 09/21/22 Status: Ordered Entresto 24 mg-26 mg oral tablet 1 tablet, By Mouth, 2 times a day, # 60 tablet, 11 Refills, [facility], 30, TAKE 1 TABLET BY MOUTH TWICE A DAY, 157.48, cm, 08/12/21 10:44:00 EDT, Height, 111, kg, 06/10/21 15:06:00 EDT, Dry Weight Start Date: 09/18/21 Status: Ordered ferrous sulfate 325 mg oral enteric coated tablet 1, tablet, By Mouth, 2 times a day, # 180 tablet, Refills 1, Maintenance, 07/26/22 7:26:00 EDT, Route to Pharmacy Electronically, [facility] 89429, 157.48, cm, 05/18/22 9:48:00 EST, Height, 111, kg, 06/10/21 15:06:00 EDT, Dry Weight Start Date: 07/26/22 Status: Ordered furosemide 20 mg oral tablet 1, tablet, By Mouth, Daily, # 90 tablet, Refills 1, Maintenance, 07/02/22 8:00:00 EDT, Route to Pharmacy Electronically, [facility] 74474, 157.48, cm, 05/18/22 9:48:00 EST, Height, 111, kg, 06/10/21 15:06:00 EDT, Dry Weight Start Date: 07/02/22 Status: Ordered furosemide 20 mg oral tablet 1, tablet, By Mouth, Daily, # 30 tablet, Refills 5, Maintenance, 12/30/21 15:04:00 EDT, Route to Pharmacy Electronically, [facility] 68283, 157.48, cm, 11/04/21 11:33:00 EDT, Height, 111, kg, 06/10/2214:06:00 EDT, Dry Weight Start Date: 12/30/21 Status: Ordered Metoprolol Succinate ER 100 mg oral tablet, extended release 1.5 tablet = 150 mg, By Mouth, Daily, # 135 tablet, 3 Refills, Maintenance, 10/12/22 15:26:00 EDT, XL Tablet, [facility]/pharmacy #2339, [...] tablet, 1 Refills, Maintenance, 06/22/22 14:48:00 EDT, [facility] 61597, 157.48, cm, 05/18/22 9:48:00 EST, Height, 111, kg, 03... Start Date: 06/22/22 Status: Ordered spironolactone 25 mg oral tablet 0.5, tablet, By Mouth, Daily, # 45 tablet, Refills 1, Maintenance, 05/21/22 10:15:00 EST, Route to Pharmacy Electronically, [facility] 22215, 157.48, cm, 05/18/22 9:48:00 EST, Height, 111, [...] chronic Confirmed Active CHF (congestive heart failure) (FIBV82-24% on echo 2019) Confirmed Active Coronary artery [...] Care Team Personnel Name: Radha Villela Position: [facility] RN Supv Member Role: Primary Care Nurse Name: Nichole Coates RN Position: [facility] RN Member Role: Primary Care Nurse Name: Ksenia Herzog RN Position: [facility] RN Member Role: Primary Care Nurse Name: Leatha Walsh RN Position: [facility] RN Member Role: Primary Care Nurse Name: Milagro Sims RN Position: [facility] RN Member Role: Primary Care Nurse Name: Jo Ann Stubbs PharmD Position: [facility] Associate Professional Member Role: Lifetime Consulting Provider Address: Address: [address] [place] [address] [place] [address]- [place] Name: Anne Gonzalez RN Position: [facility] RN Member Role: Primary Care Nurse Name: Mckayla Wilcox RN Position: [facility] SN RN Member Role: Primary Care Nurse Name: Simin Chen RN Position: [facility] RN Member Role: Primary Care Nurse Name: Jose Martinez MD Position: [facility] Physician - Primary Care Member Role: PCP Address: Address: [address] [place] [address]- [place] Name: Aleks Merchant RN Position: S RN Member Role: Primary Care Nurse Name: Genet Bowman RN Position: [facility] RN Member Role: Primary Care Nurse Name: Ilana Burns RN Position: S RN Member Role: Primary Care Nurse Care Team Related Persons Name: TUTU ROWLAND Address: home [address] [place] [id number] Name: JANET CONNOR Address: home [address] [place] [id number]
--- OUTSIDE RECORDS SUMMARY | 2023-08-02 08:38 | XMS_ITS | Continuity of Care Document ---
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 Start Date: 10/13/21 Status: Ordered amLODIPine 10 mg oral tablet 1 tablet, By Mouth, Daily, # 90 tablet, 3 Refills, Maintenance, 02/23/22 8:50:00 EST, [facility] 97[facility], 157.48, cm, 01/20/22 14:40:00 EDT, Height, 111, kg, 06/10/21 15:06:00 EDT, Dry Weight Start Date: 02/23/22 Status: Ordered ARIPiprazole 5 mg oral tablet 1, tablet, By Mouth, Daily, for 90 days, TO BE COMBINED WITH THE CITALOPRAM THERAPY, # 90 tablet, Refills 3, Tot. Refills 3, Physician Stop 08/01/22 9:00:00 EDT, 08/06/21 9:00:00 EDT, Route to Pharmacy Electronically, [facility]/pharmacy #2339, 157.48, cm, 0... Start Date: 08/06/21 Stop Date: 08/01/22 Status: Ordered aspirin 81 mg oral delayed release tablet 81 mg, By Mouth, Daily, # 30 tablet, Refills 11, Tot. Refills 11, Maintenance, 06/12/21 9:27:00 EDT, Route to Pharmacy Electronically, [facility], Partial fill upon patient request if the prescription is for a schedule II opioid drug., 1... Start Date: 06/12/21 Stop Date: 06/07/22 Status: Ordered Ativan 0.5 mg oral tablet 1 tablet = 0.5 mg, By Mouth, Daily at bedtime, PRN as needed for anxiety, # 30 tablet, 3 Refills, Maintenance, 01/15/22 13:14:00 EDT, Tablet, [facility]/pharmacy #2339, Partial fill upon patient request if the prescription is for a schedule II opioid drug.,... Start Date: 01/15/22 Status: Ordered citalopram 40 mg oral tablet 1 tablet, By Mouth, Daily, for 90 days, # 90 tablet, 3 Refills, Physician Stop 08/01/22 9:01:00 EDT, 08/06/21 9:01:00 EDT, [facility]/pharmacy #2339, 157.48, cm, 08/05/21 14:31:00 EDT, Height, [...] # 90 tablet, 1 Refills, [facility] 68724, 90, TAKE 1 TABLET BY MOUTH EVERY [...] 11 Refills, 06/02/21 14:01:00 EDT, [facility]/pharmacy #2339, 2 puffs Inhalation 2 times a day, 160, cm, 06/02/21 13:26:00 EDT, Height, 103, kg, 04/10/20 11:20:00 EST, Dry Weight Start Date: 06/02/21 Status: Ordered Entresto 24 mg-26 mg oral tablet 1 tablet, By Mouth, 2 times a day, # 60 tablet, 11 Refills, [facility] 00584, 30, TAKE 1 TABLET BY MOUTH TWICE [...] EDT, Route to Pharmacy Electronically, [facility]/pharmacy #2339, 157.48, cm, 08/05/21 14:31:00 EDT, Height, 111,... Start Date: 08/06/21 Stop Date: 08/01/22 Status: Ordered furosemide 20 mg oral tablet 1, tablet, By Mouth, Daily, # 30 tablet, Refills 5, Maintenance, 12/30/21 15:04:00 EDT, Route to Pharmacy Electronically, [facility] 21437, 157.48, cm, 11/04/21 11:33:00 EDT, Height, 111, kg, 06/10/2214:06:00 EDT, Dry Weight Start Date: 12/30/21 Status: Ordered Lipitor 80 mg oral tablet 1 tablet = 80 mg, By Mouth, Daily at bedtime, # 30 tablet, 11 Refills, Maintenance, 06/12/21 9:27:00 EDT, Tablet, [facility], Partial fill upon patient request if the prescription is for a schedule II opioid drug., 157.48, cm, 06/10/21 1... Start Date: 06/12/21 Status: Ordered metoprolol 100 mg oral tablet, extended release 150 mg, 1.5, tablet, By Mouth, Daily, # 45 tablet, Refills 6, Tot. Refills 6, Maintenance, 01/20/2214:50:00 EDT, Route to Pharmacy Electronically, [facility]/pharmacy #2339, Partial fill upon patient request if [...] Refills, Maintenance, 08/19/21 14:03:00 EDT, [facility]/pharmacy #2339, parital fill upon patient request, 157.48, cm, 07/21... Start Date: 08/19/21 Stop Date: 09/16/21 Status: Ordered morphine 15 mg/8 to 12 hr oral tablet, extended release 1 tablet = 15 mg, By Mouth, Every 8 hours, PRN Pain , Moderate, On substance agreement evaluated every 3 to 6 months, # 84 tablet, 0 Refills, Maintenance, 11/25/21 15:15:00 EDT, [facility]/pharmacy #2339, parital fill upon patient request, 157.48, [...] tablet, 5 Refills, Maintenance, 02/23/22 8:50:00 EST, [facility] 39853, 157.48, cm, 01/20/22 14:40:00 EDT, Height, 111, kg, ... Start Date: 02/23/22 Status: Ordered warfarin 5 mg oral tablet 0.5 tablet = 2.5 mg, By Mouth, Daily, Goal INR 2-3 Please follow up with your coumadin clinic, # 15tablet, 0 Refills, Maintenance, 06/12/21 9:27:00 EDT, Tablet, [facility], Partial fill upon patient request if the prescription is for a... Start Date: 06/12/21 Status: Ordered Problem List Condition Confirmation Course Effective Dates Status H ealth Status Informant Asthma Confirmed Active Atrial fibrillation Confirmed Active Back pain 1 Confirmed Active Major depression, chronic Confirmed Active CHF (congestive heart failure) (CKSC69-28% on echo 2019) Confirmed Active Continuous opioid [...] Care Nurse Name: Nichole Coates RN Position: [facility] RN Member Role: Primary Care Nurse Name: Ksenia Herzog RN Position: [facility] RN Member Role: Primary Care Nurse Name: Leatha Walsh RN Position: [facility] RN Member Role: Primary Care Nurse Name: Milagro Sims RN Position: [facility] RN Member Role: Primary Care Nurse Name: Jo Ann Stubbs PharmD Position: [facility] Associate Professional Member Role: Lifetime Consulting Provider Address: Address: [address] [place], [place] [address] [address]- [place] Name: Anne Gonzalez RN Position: S RN Member Role: Primary Care Nurse Name: Mckayla Wilcox RN Position: [facility] SN RN Member Role: Primary Care Nurse Name: Simin Chen RN Position: S RN Member Role: Primary Care Nurse Name: Jose Martinez MD Position: S Primary Care Physician Member Role: PCP Address: Address: [address] [place] [address]- [place] Name: Aleks Merchant RN Position: S RN Member Role: Primary Care Nurse Name: Genet Bowman RN Position: [facility] SN RN Member Role: Primary Care Nurse Name: Ilana Burns RN Position: S RN Member Role: Primary Care Nurse Care Team Related Persons Name: TUTU ROWLAND Address: home [address] [place] [address] Name: JANET CONNOR Address: home [address] [place] [address]
--- OUTSIDE RECORDS SUMMARY | 2023-08-02 08:38 | XMS_ITS | Continuity of Care Document ---
Author Organization 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 patient 5Admin Note: [facility] [facility] 6Admin Note: [employer],[place] 7Admin Note: Novaritis Medications ARIPiprazole 5 mg oral tablet 1, tablet, By Mouth, Daily, TO BE COMBINED WITH THE CITALOPRAM THERAPY, # 90 tablet, Refills 1, Route to Pharmacy Electronically, [facility] 13419, 162.5, cm, 12/27/20 14:39:00 EDT, Height, 103, [...] tablet, 1 Refills, Maintenance, 10/28/20 14:21:00 EDT, [facility]/pharmacy#2339, 162.5, cm, 05/15/20 10:27:00 EST, [...] 0 Refills, Maintenance, 01/15/21 17:11:00 EDT, Tablet, [facility]/pharmacy #2339, parital fill upon patient request, 162.5, cm, 12/27/20 1... Start Date: 01/15/21 Status: Ordered Dulera 100 mcg-5 mcg/inh inhalation aerosol 2 puffs, Inhalation, 2 times a day, # 13 Unknown, 11 Refills, Maintenance, 07/22/20 7:52:00 EDT, [facility] 47144, 30, INHALE 2 PUFFS TWICE A DAY, 162.5, cm, 05/15/20 10:27:00 EST, Height, 103, kg, 04/10/20 11:20:00 EST, Dry Weight Start Date: 07/22/20 Status: Ordered ferrous sulfate 325 mg oral enteric coated tablet 1, tablet, By Mouth, 2 times a day, # 180 tablet, Refills 1, Tot. Refills 0, Maintenance, 10/17/20 7:27:00 EDT, Route to Pharmacy Electronically, [facility] 67275, 162.5, cm, 05/15/20 10:27:00 EST, Height, 103, kg, 04/10/20 11:20:00 EST, Dry Weight Start Date: 10/17/20 Status: Ordered lisinopril 10 mg oral tablet 1, tablet, By Mouth, Daily, # 90 tablet, Refills 3, Route to Pharmacy Electronically, [facility] 28621, 162.5, cm, 05/15/20 10:27:00 EST, Height, 103, kg, 04/10/20 11:20:00 EST, Dry Weight Start Date: 11/13/20 Status: Ordered Metoprolol Succinate ER 25 mg oral tablet, extended release 1 tablet, By Mouth, Daily, # 90 tablet, 1 Refills, Maintenance, 07/22/20 7:32:00 EDT, [facility] 69802, 162.5, cm, 05/15/20 10:27:00 EST, Height, 103, kg, 04/10/20 11:20:00 EST, Dry Weight Start Date: 07/22/20 Status: Ordered morphine 15 mg/8 to 12 hr oral tablet, extended release 1 tablet = 15 mg, By Mouth, Every 8 hours, PRN Pain , Moderate, On substance agreement evaluated every 3 to 6 months, # 90 tablet, 0 Refills, Maintenance, 01/15/21 17:11:00 EDT, [facility]/pharmacy #2339, parital fill upon patient request, 162.5, cm, 12/27... Start Date: 01/15/21 Stop Date: 02/14/21 Status: Ordered morphine 30 mg/8 to 12 hr oral tablet, extended release 1 tablet = 30 mg, By Mouth, 3 times a day, OPIATE AGREEMENT evaluated every 3 to 6 months, # 84 tablet, 0 Refills, Maintenance, 01/15/21 17:11:00 EDT, [facility]/pharmacy #2339, may fill [...] Start Date: 08/25/19 Status: Ordered [facility] use with inhaler [facility] use with inhaler, See Instructions, # [...] Refills, Maintenance, 10/17/20 12:35:00 EDT, [facility], 162.5, cm, 05/15/20 10:27:00 EST, Height, 103, [...] Refills, Maintenance, 09/02/20 8:48:00 EDT, [facility], 162.5, cm, 05/15/20 10:27:00 EST, Height, 103, kg, 04/10/20 11:20:00 EST, Dry Weight Start Date: 09/02/20 Status: Ordered Problem List Condition Effective Dates Status Health Status Inform ant Asthma(Confirmed) Active Atrial fibrillation(Confirmed) Active Back pain(Confirmed) 1 Active Major depression, chronic(Confirmed) Active CHF (congestive heart failur e) (MWBY03-34% on echo 2019)(Confirmed) Active Continuous opioid dependence(Confirmed) [...]
--- OUTSIDE RECORDS SUMMARY | 2023-08-02 08:38 | XMS_ITS | Continuity of Care Document ---
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 Refills 11, Maintenance, 07/31/19 14:19:00 EDT, Route to Pharmacy Electronically, [facility]/pharmacy #2339, 157, cm, 07/31/19 13:53:00 EDT, Height, 1... Start Date: 07/31/19 Status: Ordered amLODIPine 5 mg oral tablet 5 mg, 1, tablet, By Mouth, Daily, # 90 tablet, Refills 0, Tot. Refills 0, Maintenance, 05/19/19 14:39:00 EST, Route to Pharmacy Electronically, [facility]/pharmacy #2339, 157, cm, 04/21/19 10:26:00 EST, Height, 104, kg, 08/03/17 12:54:00 EDT, Dry Weight Start Date: 05/19/19 Stop Date: 08/17/19 Status: Ordered amLODIPine 5 mg oral tablet 1 tablet = 5 mg, By Mouth, Daily, # 90 tablet, 1 Refills, Maintenance, 10/12/19 11:34:00 EDT, [facility]/pharmacy #2339, 157, cm, 08/25/19 15:55:00 [...] 08/04/17 9:05:52 EDT, Route to Pharmacy Electronically, [id number], [facility] 3 Start Date: 08/04/17 Status: Ordered Ativan [...] tablet, 1 Refills, Maintenance, 10/03/19 13:25:00 EDT, [facility] 17810, 157, cm, 08/25/19 15:55:00 EDT, Height Start [...] tablet, 0 Refills, Maintenance, 11/15/19 16:47:00 EDT, [facility]/pharmacy #2339, parital fill upon patient request, 156.6, [...] 0 Refills, Soft Stop, 05/10/19 16:02:00 EST, [facility]/pharmacy #2339, 157, cm, 04/21/19 10:26:00 EST, Height, 104, kg, 08/03/17 12:... Start Date: 05/10/19 Status: Ordered Nicoderm C-Q 21 mg/24 hr transdermal film, extended release 1 patch, Topically, Daily, # 30 patch, 3 Refills, Maintenance, 08/25/19 16:23:00 EDT, Patch, [facility]/pharmacy #2339, 157, cm, 08/25/19 15:55:00 [...] 14:55:12 EDT, Aerosol, Route to Pharmacy Electronically, [id number], [facility]/pharmacy #2339 Start Date: 10/28/18 Status: [...] 10/23/19 15:22:00 EDT, Route to Pharmacy Electronically, [facility]/pharmacy #2339, 156.5, cm, 10/20/19 16:01:00 EDT, Height Start Date: 10/23/19 Status: Ordered torsemide 5 mg oral tablet 1 tablet = 5 mg, By Mouth, Daily, # 30 tablet, 11 Refills, Maintenance, 10/20/19 16:34:00 EDT, [facility]/pharmacy #2339, 156.5, cm, 10/20/19 16:01:00 [...]
--- OUTSIDE RECORDS SUMMARY | 2023-08-02 08:38 | XMS_ITS | Continuity of Care Document ---
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 Refills 3, Maintenance, 05/28/21 9:14:00 EST, Route to Pharmacy Electronically, [facility], Partial fill upon patient request if the prescription is for a schedule II opioid... Start Date: 05/28/21 Stop Date: 09/25/21 Status: Ordered ARIPiprazole 5 mg oral tablet 1, tablet, By Mouth, Daily, TO BE COMBINED WITH THE CITALOPRAM THERAPY, # 90 tablet, Refills 0, Route to Pharmacy Electronically, [id number], 160, cm, 06/02/21 13:26:00 EDT, Height, 103, kg, 04/10/20 11:20:00 EST, Dry Weight Start Date: 06/03/21 Status: Ordered aspirin 81 mg oral delayed release tablet 81 mg, By Mouth, Daily, # 30 tablet, Refills 11, Tot. Refills 11, Maintenance, 05/28/21 9:14:00 EST, Route to Pharmacy Electronically, [facility], Partial fill upon patient request if the prescription is for a schedule II opioid drug., 1... Start Date: 05/28/21 Stop Date: 05/23/22 Status: Ordered Ativan 0.5 mg oral tablet 1 tablet = 0.5 mg, By Mouth, 3 times a day, PRN anxiety, # 90 tablet, 2 Refills, Maintenance, 02/24/21 14:29:00 EST, Tablet, [facility]/pharmacy #[id number], 162.5, cm, 01/29/21 12:38:00 EST, Height, 103, kg, 04/10/20 11:20:00 EST, Dry Weight Start Date: 02/24/21 Status: Ordered citalopram 40 mg oral tablet 1 tablet, By Mouth, Daily, # 90 tablet, 1 Refills, [facility] [id number], 162.5, cm, 01/29/21 12:38:00 EST, Height, 103, kg, 04/10/20 11:20:00 EST, Dry Weight Start Date: 04/07/21 Status: Ordered clotrimazole 10 mg oral lozenge 10 mg, 1, lozenge, By Mouth, 5 times a day, for 7 days, # 35 lozenge, Refills 1, Tot. Refills 1, Acute 06/16/21 14:14:00 EDT, 06/02/21 14:14:00 EDT, Route to Pharmacy Electronically, [facility]/pharmacy #[id number], Partial fill upon patient request if the prescri... Start Date: 06/02/21 Stop Date: 06/16/21 Status: Ordered CPAP Machine See Instructions, # [...] 0 Refills, Maintenance, 05/12/21 15:33:00 EST, Tablet, [facility]/pharmacy #[id number], parital fill [...] tablet, Refills 1, Route to Pharmacy Electronically, [facility]ORE [id number], 162.5, cm, 01/29/21 12:38:00 EST, Height, 103, kg, 04/10/20 11:20:00 EST, Dry Weight Start Date: 04/07/21 Status: Ordered Lipitor 80 mg oral tablet 1 tablet = 80 mg, By Mouth, Daily at bedtime, # 30 tablet, 3 Refills, Maintenance, 05/28/21 9:15:00EST, Tablet, [facility], Partial fill upon patient request if the prescription is fora schedule II opioid drug., 160, cm, 05/28/21 7:45:... Start Date: 05/28/21 Stop Date: 09/25/21 Status: Ordered lisinopril 20 mg oral tablet 20 mg, 1, tablet, By Mouth, Daily, DOSE INCREASED FROM 10MG TO 20MG DAILY, # 30 tablet, Refills 3, Tot. Refills 3, Maintenance, 05/28/21 9:32:00 EST, Route to Pharmacy Electronically, [facility], Partial fill upon patient request if the... Start Date: 05/28/21 Stop Date: 09/25/21 Status: Ordered Metoprolol Succinate ER 25 mg oral tablet, extended release 1 tablet, By Mouth, Daily, # 90 tablet, 1 Refills, Maintenance, 04/02/21 9:43:00 EST, [facility]/pharmacy #[id number], 162.5, cm, 01/29/21 12:38:00 EST, Height, 103, kg, 04/10/20 11:20:00 EST, Dry Weight Start Date: 04/02/21 Status: Ordered morphine 15 mg/8 to 12 hr oral tablet, extended release 1 tablet = 15 mg, By Mouth, Every 8 hours, PRN Pain , Moderate, On substance agreement evaluated every 3 to 6 months, # 90 tablet, 0 Refills, Maintenance, 05/12/21 15:33:00 EST, [facility]/pharmacy #[id number], parital fill upon patient request, 162.5, cm, 05/12... Start Date: 05/12/21 Stop Date: 06/11/21 Status: Ordered morphine 30 mg/8 to 12 hr oral tablet, extended release 1 tablet = 30 mg, By Mouth, 3 times a day, OPIATE AGREEMENT evaluated every 3 to 6 months, # 84 tablet, 0 Refills, Maintenance, 05/12/21 15:33:00 EST, [facility]/pharmacy #2339, may fill for less, 162.5, cm, 05/12/21 9:43:00 EST, Height, 103, kg, 04/10/20 1... Start Date: 05/12/21 Stop Date: 06/09/21 Status: Ordered Multivitamin 1 tablet, By Mouth, Daily, 0 Refills, Maintenance, 05/25/16 13:36:30 EST Start Date: 05/25/16 Status: Ordered nicotine 14 mg/24 hr transdermal film, extended release 1 patch, Topically, Daily, for 14 days, # 14 patch, 0 Refills, Acute 06/11/21 12:09:00 EDT, 05/28/21 12:09:00 EST, Patch, [facility], Partial fill upon patient request if the prescription is for a schedule II opioid drug., 1 patch Topica... Start Date: 05/28/21 Stop Date: 06/11/21 Status: Ordered [facility] use with inhaler [facility] use with inhaler, See Instructions, # [...] tablet, 1 Refills, Maintenance, 04/02/21 21:23:00 EST, [facility]/pharmacy #2339, 162.5, cm, 01/29/21 12:38:00 EST, Height, 103, kg, 04/10/20 11:20:00 EST, Dry Weight Start Date: 04/02/21 Status: Ordered Ventolin HFA 108 mcg/inh inhalation aerosol with adapter 2 puffs, Inhalation, Daily, PRN NEEDED FOR WHEEZING, for 90 days, # 54 each, 1 Refills, Physician Stop, [facility] STORE [id number], 162.5, cm, 01/29/21 12:38:00 EST, Height, 103, kg, 04/10/20 11:20:00 EST, Dry Weight Start Date: 04/07/21 Stop Date: 07/06/21 Status: Ordered warfarin 5 mg oral tablet 0.5 tablet = 2.5 mg, By Mouth, Daily, Maintenance, 05/24/21 11:02:00 EST, Tablet Start Date: 05/24/21 Status: Ordered Problem List Condition Effective Dates Status Health Status Inform ant Asthma(Confirmed) Active Atrial fibrillation(Confirmed) Active Back pain(Confirmed) 1 Active Major depression, chronic(Confirmed) Active CHF (congestive heart failur e) ([id number]% on echo 2019)(Confirmed) Active Continuous opioid dependence(Confirmed) [...]
--- OUTSIDE RECORDS SUMMARY | 2023-08-02 08:38 | XMS_ITS | Continuity of Care Document ---
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 Refills 11, Maintenance, 07/31/19 14:19:00 EDT, [id number], cm, 07/31/19 13:53:00 EDT, Height, 1... Start Date: 07/31/19 Status: Ordered Ativan 0.5 mg oral tablet 1 tablet = 0.5 mg, By Mouth, 3 times a day, PRN anxiety, # 90 tablet, 2 Refills, Maintenance, 05/20/20 14:21:00 EST, Tablet, [facility] 162.5, cm, 05/15/20 10:27:00 EST, Height, 103, kg, 04/10/20 11:20:00 EST, Dry Weight Start Date: 05/20/20 Status: Ordered atorvastatin 40 mg oral tablet 1 tablet = 40 mg, By Mouth, Daily, # 90 tablet, 1 Refills, Maintenance, 11/16/19 10:37:00 EDT, Tablet, [facility] 156.6, cm, 10/23/19 15:34:00 EDT, Height, Dry Weight Start Date: 11/16/19 Status: Ordered citalopram 40 mg oral tablet 1 tablet, By Mouth, Daily, # 90 tablet, 1 Refills, Maintenance, 04/04/20 11:03:00 EST, [facility] 162.5, cm, 04/03/20 11:38:00 [...] 0 Refills, Maintenance, 04/30/20 17:05:00 EST, Tablet, [facility]/pharmacy #[id number], parital fill upon patient request, 162.5, cm, 04/10/20 1... Start Date: 04/30/20 Status: Ordered Dulera 100 mcg-5 mcg/inh inhalation aerosol 2 puffs, Inhalation, 2 times a day, # 1 each, 11 Refills, Maintenance, 07/31/19 14:15:00 EDT, Aerosol, [facility]/pharmacy #2339, 2 puffs Inhalation 2 times a day, 157, cm, 07/31/19 13:53:00 EDT, Height, 104, kg, 08/03/17 12:54:00 EDT, Dry Weight Start Date: 07/31/19 Status: Ordered ferrous sulfate 325 mg oral enteric coated tablet 325 mg, By Mouth, 2 times a day, # 60 tablet, Refills 5, Tot. Refills 5, Maintenance, 04/17/20 10:12:00 EST, Route to Pharmacy Electronically, [facility]/pharmacy #2339, 162.5, cm, 04/10/20 11:20:00 EST, Height, 103, kg, 04/10/20 11:20:00 EST, Dry Weight Start Date: 04/17/20 Status: Ordered Lasix 40 mg oral tablet 40 mg, 1, tablet, By Mouth, Daily, # 30 tablet, Refills 5, Tot. Refills 5, Maintenance, 03/11/20 13:11:00 EST, Route to Pharmacy Electronically, [facility]/pharmacy #2339, 160, cm, 02/28/20 10:28:00 EST, Height, 104, kg, 01/19/20 3:57:00 EDT, Dry Weight Start Date: 03/11/20 Status: Ordered lisinopril 10 mg oral tablet 10 mg, 1, tablet, By Mouth, Daily, # 90 tablet, Refills 1, Tot. Refills 1, Maintenance, 05/20/20 8:39:00 EST, Route to Pharmacy Electronically, [facility]/pharmacy #2339, 162.5, cm, 05/15/20 10:27:00 EST, [...] tablet, 0 Refills, Maintenance, 04/30/20 17:05:00 EST, [facility]/pharmacy #[id number], parital fill upon patient request, 162.5, cm, 04/10... Start Date: 04/30/20 Stop Date: 05/30/20 Status: Ordered morphine 30 mg/8 to 12 hr oral tablet, extended release 1 tablet = 30 mg, By Mouth, 3 times a day, OPIATE AGREEMENT evaluated every 3 to 6 months, # 84 tablet, 0 Refills, Maintenance, 04/30/20 17:05:00 EST, [facility]/pharmacy #2339, may fill for less, 162.5, cm, 04/10/20 11:20:00 EST, Height, 103, kg, 04/10/20... Start Date: 04/30/20 Stop Date: 05/28/20 Status: Ordered Multivitamin Daily, 0 Refills, Maintenance, 05/25/16 13:36:30 Start Date: 05/25/16 Status: Ordered Nicoderm C-Q 21 mg/24 hr transdermal film, extended release 1 patch, Topically, Daily, # 30 patch, 3 Refills, Maintenance, 08/25/19 16:23:00 EDT, Patch, [facility]/pharmacy #2339, 157, cm, 08/25/19 15:55:00 EDT, Height Start Date: 08/25/19 Status: Ordered [facility] use with inhaler [facility] use with inhaler, See Instructions, [...] 01/22/20 9:08:00 EST, Route to Pharmacy Electronically, [facility]/pharmacy #2339, 160, cm, 01/22/20 7:53:00 EST, Height, 104, kg, 01/19/20 3:57:00 EDT, Dry Weight Start Date: 01/22/20 Stop Date: 07/20/20 Status: Ordered Ventolin HFA 108 mcg/inh inhalation aerosol with adapter 2 puffs, Inhalation, 4 times a day, PRN for wheezing, # 8 Gm, 5 Refills, Maintenance, 12/20/19 11:27:00 EDT, Aerosol, [facility]/pharmacy #2339, 156.6, cm, 10/23/19 15:34:00 EDT, Height Start Date: 12/20/19 Status: Ordered warfarin 5 mg oral tablet 0.5 tablet = 2.5 mg, By Mouth, Daily at bedtime, 5mg tablet on Fridays, # 30 tablet, 5 Refills, Maintenance, 02/26/20 12:12:00 EST, Tablet, [facility]/pharmacy #2339, 160, cm, 01/26/20 9:40:00 EST, [...]
--- OUTSIDE RECORDS SUMMARY | 2023-08-02 08:38 | XMS_ITS | Continuity of Care Document ---
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 Start Date: 08/06/21 Stop Date: 08/01/22 Status: Ordered aspirin 81 mg oral delayed release tablet 81 mg, By Mouth, Daily, # 30 tablet, Refills 11, Tot. Refills 11, Maintenance, 06/12/21 9:27:00 EDT, Route to Pharmacy Electronically, [facility], Partial fill upon patient request if the prescription is for a schedule II opioid drug., 1... Start Date: 06/12/21 Stop Date: 06/07/22 Status: Ordered Ativan 0.5 mg oral tablet 1 tablet = 0.5 mg, By Mouth, Daily at bedtime, PRN as needed for anxiety, # 30 tablet, 1 Refills, Maintenance, 08/06/21 9:02:00 EDT, Tablet, [facility]/pharmacy #2339, Partial fill upon patient request if the prescription is for a schedule II opioid drug., 1... Start Date: 08/06/21 Status: Ordered citalopram 40 mg oral tablet 1 tablet, By Mouth, Daily, for 90 days, # 90 tablet, 3 Refills, Physician Stop 08/01/22 9:01:00 EDT, 08/06/21 9:01:00 EDT, [facility]/pharmacy #2339, 157.48, cm, 08/05/21 14:31:00 EDT, [...] EVERY DAY, # 90 tablet, 1 Refills, [facility], 90, TAKE 1 TABLET BY MOUTH EVERY DAY, 157.48, cm, 08/12/21 10:44:00 EDT, Height, 111, kg, 06/10/21 15:06:00 EDT, Dry Weight Start Date: 10/31/21 Status: Ordered Dulera 100 mcg-5 mcg/inh inhalation aerosol 2 puffs, Inhalation, 2 times a day, # 1 each, 11 Refills, 06/02/21 14:01:00 EDT, [facility]/pharmacy #2339, 2 puffs Inhalation 2 times a day, 160, cm, 06/02/21 13:26:00 EDT, Height, 103, kg, 04/10/20 11:20:00 EST, Dry Weight Start Date: 06/02/21 Status: Ordered Entresto 24 mg-26 mg oral tablet 1 tablet, By Mouth, 2 times a day, # 60 tablet, 11 Refills, [facility], 30, TAKE 1 TABLET BY MOUTH TWICE [...] Route to Pharmacy Electronically, [facility]/pharmacy #2339, 157.48, cm, 08/05/21 14:31:00 EDT, Height, 111,... Start Date: 08/06/21 Stop Date: 08/01/22 Status: Ordered Lasix 20 mg oral tablet 20 mg, 1, tablet, By Mouth, Daily, PRN, # 30 tablet, Refills 1, Tot. Refills 1, Maintenance, Other,11/07/21 8:28:00 EDT, Route to Pharmacy Electronically, [facility]/pharmacy #2339, Partial fill upon patient request if the prescription is for a schedule II... Start Date: 11/07/21 Stop Date: 01/06/22 Status: Ordered Lipitor 80 mg oral tablet 1 tablet = 80 mg, By Mouth, Daily at bedtime, # 30 tablet, 11 Refills, Maintenance, 06/12/21 9:27:00 EDT, Tablet, [facility], Partial fill upon patient request if the prescription is for a schedule II opioid drug., 157.48, cm, 06/10/21 1... Start Date: 06/12/21 Status: Ordered metoprolol 100 mg oral tablet, extended release 100 mg, 1, tablet, By Mouth, Daily, # 90 tablet, Refills 3, Tot. Refills 3, Maintenance, 09/11/21 12:08:00 EDT, Route to Pharmacy Electronically, [facility]/pharmacy #2339, 157.48, cm, 08/12/21 10:44:00 EDT, [...] tablet, 0 Refills, Maintenance, 08/19/21 14:03:00 EDT, [facility]/pharmacy #2339, parital fill upon patient request, 157.48, cm, 2... Start Date: 08/19/21 Stop Date: 09/16/21 Status: Ordered morphine 15 mg/8 to 12 hr oral tablet, extended release 1 tablet = 15 mg, By Mouth, Every 8 hours, PRN Pain , Moderate, On substance agreement evaluated every 3 to 6 months, # 84 tablet, 0 Refills, Maintenance, 10/13/21 14:41:00 EDT, [facility]/pharmacy #2339, parital fill upon patient request, [...] EVERY NIG, # 90 tablet, 1 Refills, [facility] ST[facility] 470[facility], 157.48, cm, 08/12/21 10:44:00 EDT, Height, 111, [...] chronic(Confirmed) Active CHF (congestive heart failur e) ([id number]% on echo franco 2020)(Confirmed) Active Continuous opioid dependence(Confirmed) Active Coronary artery [...] Personnel Name: Jose Martinez MD Address: [address] [place], [place] [address]
--- OUTSIDE RECORDS SUMMARY | 2023-08-02 08:38 | XMS_ITS | Continuity of Care Document ---
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 Refills 0, Maintenance, 08/04/17 9:05:52 EDT, Route to Pharmacy Electronically, [id number], [facility] Start Date: 08/04/17 Status: Ordered Ativan 0.5 mg oral tablet 1 tablet = 0.5 mg, By Mouth, 3 times a day, PRN anxiety, # 90 tablet, 2 Refills, Maintenance, 03/20/19 16:41:00 EST, Tablet, [facility]/pharmacy #2339, 157, cm, 01/13/19 9:10:00 EDT, Height, 104, kg, 08/03/17 12:54:00 EDT, Dry Weight Start Date: 03/20/19 Status: Ordered atorvastatin 40 mg oral tablet 1 tablet = 40 mg, By Mouth, Daily, # 30 tablet, 5 Refills, Maintenance, 03/20/19 15:53:00 EST, Tablet, [facility]/pharmacy #2339, 157, cm, 01/13/19 9:10:00 EDT, Height, 104, kg, 08/03/17 12:54:00 EDT, Dry Weight Start Date: 03/20/19 Status: Ordered CeleXA 40 mg oral tablet 1, tablet, By Mouth, Daily, # 90 tablet, Refills 1, Tot. Refills 1, Maintenance, 03/20/19 16:10:00 EST, Route to Pharmacy Electronically, [facility]/pharmacy #2339, 157, cm, 01/13/19 9:10:00 [...] 05/25/16 13:36:30 Start Date: 05/25/16 Status: Ordered [facility] use with inhaler [facility] use with inhaler, See Instructions, # [...] 14:55:12 EDT, Aerosol, Route to Pharmacy Electronically, [id number], [facility]/pharmacy #2339 Start Date: 10/28/18 Status: Ordered Ventolin [...]
--- OUTSIDE RECORDS SUMMARY | 2023-08-02 08:38 | XMS_ITS | Continuity of Care Document ---
Author Organization [facility] ter Address [address] [place] [id number]- Care Team Providers Care Brain Picker Name Role Phone Jose Martinez MD Primary Care Physician [place] [facility] [place] - 04/06/[address] 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 no contraindications per patient 4Admin Note: [employer] [facility] 5Admin Note: [employer] 6Admin Note: Novaritis Medications Abilify 5 mg oral tablet 5 mg, 1, tablet, By Mouth, Daily, to be combined with the citalopram therapy, # 30 tablet, Refills 11, Tot. Refills 11, Maintenance, 07/31/19 14:19:00 EDT, Route to Pharmacy Electronically, [facility]/pharmacy #[id number], 157, cm, 07/31/19 13:53:00 EDT, Height, 1... Start Date: 07/31/19 Status: Ordered Ativan 0.5 mg oral tablet 1 tablet = 0.5 mg, By Mouth, 3 times a day, PRN anxiety, # 90 tablet, 2 Refills, Maintenance, 02/26/20 20:28:00 EST, Tablet, [facility]/pharmacy #2339, 160, cm, 01/26/20 9:40:00 EST, Height, 104, kg, 01/19/20 3:57:00 EDT, Dry Weight Start Date: 02/26/20 Status: Ordered atorvastatin 40 mg oral tablet 1 tablet = 40 mg, By Mouth, Daily, # 90 tablet, 1 Refills, Maintenance, 11/16/19 10:37:00 EDT, Tablet, [facility]/pharmacy #2339, 156.6, cm, 10/23/19 15:34:00 EDT, Height, Dry Weight Start Date: 11/16/19 Status: Ordered citalopram 40 mg oral tablet 1 tablet, By Mouth, Daily, # 90 tablet, 1 Refills, Maintenance, 04/04/20 11:03:00 EST, [facility]/pharmacy#2339, 162.5, cm, 04/03/20 11:38:00 EST, Height, 108, [...] 0 Refills, Maintenance, 04/01/20 14:41:00 EST, Tablet, [facility]/pharmacy #2339, parital fill upon patient request, 160, cm, 02/28/20 10:... Start Date: 04/01/20 Status: Ordered Dulera 100 mcg-5 mcg/inh inhalation aerosol 2 puffs, Inhalation, 2 times a day, # 1 each, 11 Refills, Maintenance, 07/31/19 14:15:00 EDT, Aerosol, [facility]/pharmacy #2339, 2 puffs Inhalation 2 times a day, 157, cm, 07/31/19 13:53:00 EDT, Height, 104, kg, 08/03/17 12:54:00 EDT, Dry Weight Start Date: 07/31/19 Status: Ordered ferrous sulfate 325 mg oral enteric coated tablet 325 mg, By Mouth, 2 times a day, # 60 tablet, Refills 1, Tot. Refills 1, Maintenance, 03/14/20 13:59:00 EST, Route to Pharmacy Electronically, [facility]/pharmacy #2339, 160, cm, 02/28/20 10:28:00 EST, Height, 104, kg, 01/19/20 3:57:00 EDT, Dry Weight Start Date: 03/14/20 Status: Ordered Keflex monohydrate 500 mg oral capsule 1 capsule = 500 mg, By Mouth, 4 times a day, for 7 days, # 28 capsule, 0 Refills, Acute 04/10/20 12:07:00 EST, 04/03/20 12:07:00 EST, Capsule, [facility]/pharmacy #2339, Partial fill upon patient request ifthe prescription is for a schedule II opioid drug.,... Start Date: 04/03/20 Stop Date: 04/10/20 Status: Ordered Lasix 40 mg oral tablet 40 mg, 1, tablet, By Mouth, Daily, # 30 tablet, Refills 5, Tot. Refills 5, Maintenance, 03/11/20 13:11:00 EST, Route to Pharmacy Electronically, [facility]/pharmacy #2339, 160, cm, 02/28/20 10:28:00 EST, Height, 104, kg, 01/19/20 3:57:00 EDT, Dry Weight Start Date: 03/11/20 Status: Ordered lisinopril 10 mg oral tablet 10 mg, 1, tablet, By Mouth, Daily, # 90 tablet, Refills 0, Tot. Refills 0, Maintenance, 02/26/20 14:41:00 EST, Route to Pharmacy Electronically, [facility]/pharmacy #2339, Partial fill upon patient request [...] tablet, 0 Refills, Maintenance, 03/11/20 15:21:00 EST, [facility]/pharmacy #2339, parital fill upon patient request, 160, cm, ... Start Date: 03/11/20 Stop Date: 04/10/20 Status: Ordered morphine 30 mg/8 to 12 hr oral tablet, extended release 1 tablet = 30 mg, By Mouth, 3 times a day, OPIATE AGREEMENT evaluated every 3 to 6 months, # 84 tablet, 0 Refills, Maintenance, 04/01/20 14:41:00 EST, [facility]/pharmacy #2339, may fill for less, 160, cm, 02/28/20 10:28:00 EST, Height, 106, kg, 04/01/20 10... Start Date: 04/01/20 Stop Date: 04/29/20 Status: Ordered Multivitamin Daily, 0 Refills, Maintenance, 05/25/16 13:36:30 Start Date: 05/25/16 Status: Ordered Nicoderm C-Q 21 mg/24 hr transdermal film, extended release 1 patch, Topically, Daily, # 30 patch, 3 Refills, Maintenance, 08/25/19 16:23:00 EDT, Patch, [facility]/pharmacy #2339, 157, cm, 08/25/19 15:55:00 EDT, Height Start Date: 08/25/19 Status: Ordered [facility] use with inhaler [facility] use with inhaler, See Instructions, [...] 01/22/20 9:08:00 EST, [id number], cm, 01/22/20 7:53:00 EST, Height, 104, kg, 01/19/20 3:57:00 EDT, Dry Weight Start Date: 01/22/20 Stop Date: 07/20/20 Status: Ordered Ventolin HFA 108 mcg/inh inhalation aerosol with adapter 2 puffs, Inhalation, 4 times a day, PRN for wheezing, # 8 Gm, 5 Refills, Maintenance, 12/20/19 11:27:00 EDT, Aerosol, [facility]/pharmacy #2339, 156.6, cm, 10/23/19 15:34:00 EDT, Height Start Date: 12/20/19 Status: Ordered warfarin 5 mg oral tablet 0.5 tablet = 2.5 mg, By Mouth, Daily at bedtime, 5mg tablet on Fridays, # 30 tablet, 5 Refills, Maintenance, 02/26/20 12:12:00 EST, Tablet, [facility]/pharmacy #2339, 160, cm, 01/26/20 9:40:00 EST, Height, [...]
--- OUTSIDE RECORDS SUMMARY | 2023-08-02 08:38 | XMS_ITS | Continuity of Care Document ---
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 patient 5Admin Note: [employer] [facility] 6Admin Note: [employer] 7Admin Note: Novaritis Medications ARIPiprazole 5 mg oral tablet 1, tablet, By Mouth, Daily, TO BE COMBINED WITH THE CITALOPRAM THERAPY, # 90 tablet, Refills 1, Route to Pharmacy Electronically, [facility], 162.5, cm, 12/27/20 14:39:00 EDT, Height, 103, kg, 04/10/20 11:20:00 EST, Dry Weight Start Date: 01/16/21 Status: Ordered Ativan 0.5 mg oral tablet 1 tablet = 0.5 mg, By Mouth, 3 times a day, PRN anxiety, # 90 tablet, 2 Refills, Maintenance, 02/24/21 14:29:00 EST, Tablet, [facility]/pharmacy #2339, 162.5, cm, 01/29/21 12:38:00 EST, Height, 103, kg, 04/10/20 11:20:00 EST, Dry Weight Start Date: 02/24/21 Status: Ordered atorvastatin 40 mg oral tablet 1 tablet = 40 mg, By Mouth, Daily, # 90 tablet, 1 Refills, Maintenance, 11/16/19 10:37:00 EDT, Tablet, [facility]/pharmacy #2339, 156.6, cm, 10/23/19 15:34:00 EDT, Height, Dry Weight Start Date: 11/16/19 Status: Ordered citalopram 40 mg oral tablet 1 tablet, By Mouth, Daily, # 90 tablet, 1 Refills, Maintenance, 10/28/20 14:21:00 EDT, [facility]/pharmacy#2339, 162.5, cm, 05/15/20 10:27:00 EST, Height, 103, [...] 0 Refills, Maintenance, 02/24/21 14:29:00 EST, Tablet, [facility]/pharmacy #2339, parital fill upon patient request, 162.5, cm, 01/29/21 1... Start Date: 02/24/21 Status: Ordered Dulera 100 mcg-5 mcg/inh inhalation aerosol 2 puffs, Inhalation, 2 times a day, # 13 Unknown, 11 Refills, Maintenance, 07/22/20 7:52:00 EDT, [facility], 30, INHALE 2 PUFFS TWICE A DAY, 162.5, cm, 05/15/20 10:27:00 EST, Height, 103, kg, 04/10/20 11:20:00 EST, Dry Weight Start Date: 07/22/20 Status: Ordered ferrous sulfate 325 mg oral enteric coated tablet 1, tablet, By Mouth, 2 times a day, # 180 tablet, Refills 1, Tot. Refills 0, Maintenance, 10/17/20 7:27:00 EDT, Route to Pharmacy Electronically, [facility], 162.5, cm, 05/15/20 10:27:00 EST, Height, 103, kg, 04/10/20 11:20:00 EST, Dry Weight Start Date: 10/17/20 Status: Ordered lisinopril 10 mg oral tablet 1, tablet, By Mouth, Daily, # 90 tablet, Refills 3, Route to Pharmacy Electronically, [facility], 162.5, cm, 05/15/20 10:27:00 EST, Height, 103, kg, 04/10/20 11:20:00 EST, Dry Weight Start Date: 11/13/20 Status: Ordered Metoprolol Succinate ER 25 mg oral tablet, extended release 1 tablet, By Mouth, Daily, # 90 tablet, 1 Refills, Maintenance, 07/22/20 7:32:00 EDT, [facility], 162.5, cm, 05/15/20 10:27:00 EST, Height, 103, kg, 04/10/20 11:20:00 EST, Dry Weight Start Date: 07/22/20 Status: Ordered morphine 15 mg/8 to 12 hr oral tablet, extended release 1 tablet = 15 mg, By Mouth, Every 8 hours, PRN Pain , Moderate, On substance agreement evaluated every 3 to 6 months, # 90 tablet, 0 Refills, Maintenance, 02/24/21 14:29:00 EST, [facility]/pharmacy #2339, parital fill upon patient request, 162.5, cm, 01/29... Start Date: 02/24/21 Stop Date: 03/26/21 Status: Ordered morphine 30 mg/8 to 12 hr oral tablet, extended release 1 tablet = 30 mg, By Mouth, 3 times a day, OPIATE AGREEMENT evaluated every 3 to 6 months, # 84 tablet, 0 Refills, Maintenance, 02/24/21 14:29:00 EST, [facility]/pharmacy #2339, may fill for less, 162.5, cm, 01/29/21 12:38:00 EST, Height, 103, kg, 04/10/20... Start Date: 02/24/21 Stop Date: 03/24/21 Status: Ordered Multivitamin Daily, 0 Refills, Maintenance, 05/25/16 13:36:30 Start Date: 05/25/16 Status: Ordered Nicoderm C-Q 21 mg/24 hr transdermal film, extended release 1 patch, Topically, Daily, # 30 patch, 3 Refills, Maintenance, 08/25/19 16:23:00 EDT, Patch, [facility]/pharmacy #2339, 157, cm, 08/25/19 15:55:00 EDT, Height Start Date: 08/25/19 Status: Ordered [facility] use with inhaler [facility] use with inhaler, See Instructions, # [...] Refills, Maintenance, 10/17/20 12:35:00 EDT, [facility], 162.5, cm, 05/15/20 10:27:00 EST, Height, 103, [...] Mouth, Daily, # 90 tablet, 1 Refills, [facility], 162.5, cm, 01/29/21 12:38:00 EST, Height, 103, kg, 04/10/20 11:20:00 EST, Dry Weight Start Date: 03/03/21 Status: Ordered Problem List Condition Effective Dates Status Health Status Inform ant Asthma(Confirmed) Active Atrial fibrillation(Confirmed) Active Back pain(Confirmed) 1 Active Major depression, chronic(Confirmed) Active CHF (congestive heart failur e) (RBDO16-49% on echo 2019)(Confirmed) Active Continuous opioid dependence(Confirmed) [...]
--- OUTSIDE RECORDS SUMMARY | 2023-08-02 08:38 | XMS_ITS | Continuity of Care Document ---
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/pharmacy #2339, 157.48, cm, 0... Start Date: 08/06/21 Stop Date: 08/01/22 Status: Ordered aspirin 81 mg oral delayed release tablet 81 mg, By Mouth, Daily, # 30 tablet, Refills 11, Tot. Refills 11, Maintenance, 06/12/21 9:27:00 EDT, Route to Pharmacy Electronically, [facility] 3, Partial fill upon patient request if the prescription is for a schedule II opioid drug., 1... Start Date: 06/12/21 Stop Date: 06/07/22 Status: Ordered Ativan 0.5 mg oral tablet 1 tablet = 0.5 mg, By Mouth, Daily at bedtime, PRN as needed for anxiety, # 30 tablet, 1 Refills, Maintenance, 11/25/21 15:15:00 EDT, Tablet, [facility]/pharmacy #2339, Partial fill upon patient request if the prescription is for a schedule II opioid drug.,... Start Date: 11/25/21 Status: Ordered citalopram 40 mg oral tablet 1 tablet, By Mouth, Daily, for 90 days, # 90 tablet, 3 Refills, Physician Stop 08/01/22 9:01:00 EDT, 08/06/21 9:01:00 EDT, [facility]/pharmacy #2339, 157.48, cm, 08/05/21 14:31:00 EDT, [...] EVERY DAY, # 90 tablet, 1 Refills, [email or web address], 90, TAKE 1 TABLET BY MOUTH EVERY DAY, 157.48, cm, 08/12/21 10:44:00 EDT, Height, 111, kg, 06/10/21 15:06:00 EDT, Dry Weight Start Date: 10/31/21 Status: Ordered Dulera 100 mcg-5 mcg/inh inhalation aerosol 2 puffs, Inhalation, 2 times a day, # 1 each, 11 Refills, 06/02/21 14:01:00 EDT, [facility]/pharmacy #2339, 2 puffs Inhalation 2 times a day, 160, cm, 06/02/21 13:26:00 EDT, Height, 103, kg, 04/10/20 11:20:00 EST, Dry Weight Start Date: 06/02/21 Status: Ordered Entresto 24 mg-26 mg oral tablet 1 tablet, By Mouth, 2 times a day, # 60 tablet, 11 Refills, [email or web address], 30, TAKE 1 TABLET BY MOUTH TWICE [...] 9:01:00 EDT, Route to Pharmacy Electronically, [facility]/pharmacy #2339, 157.48, cm, 08/05/21 14:31:00 EDT, Height, 111,... Start Date: 08/06/21 Stop Date: 08/01/22 Status: Ordered Lasix 20 mg oral tablet 20 mg, 1, tablet, By Mouth, Daily, PRN, # 30 tablet, Refills 1, Tot. Refills 1, Maintenance, Other,11/07/21 8:28:00 EDT, Route to Pharmacy Electronically, [facility]/pharmacy #2339, Partial fill upon patient request if the prescription is for a schedule II... Start Date: 11/07/21 Stop Date: 01/06/22 Status: Ordered Lipitor 80 mg oral tablet 1 tablet = 80 mg, By Mouth, Daily at bedtime, # 30 tablet, 11 Refills, Maintenance, 06/12/21 9:27:00 EDT, Tablet, [facility] 3, Partial fill upon patient request if the prescription is for a schedule II opioid drug., 157.48, cm, 06/10/21 1... Start Date: 06/12/21 Status: Ordered metoprolol 100 mg oral tablet, extended release 100 mg, 1, tablet, By Mouth, Daily, # 90 tablet, Refills 3, Tot. Refills 3, Maintenance, 09/11/21 12:08:00 EDT, Route to Pharmacy Electronically, [facility]/pharmacy #2339, 157.48, cm, 08/12/21 10:44:00 EDT, [...] tablet, 0 Refills, Maintenance, 08/19/21 14:03:00 EDT, [facility]/pharmacy #2339, parital fill upon patient request, 157.48, cm, 07/21... Start Date: 08/19/21 Stop Date: 09/16/21 Status: Ordered morphine 15 mg/8 to 12 hr oral tablet, extended release 1 tablet = 15 mg, By Mouth, Every 8 hours, PRN Pain , Moderate, On substance agreement evaluated every 3 to 6 months, # 84 tablet, 0 Refills, Maintenance, 11/25/21 15:15:00 EDT, [facility]/pharmacy #2339, parital fill upon patient request, [...] tablet, 1 Refills, Maintenance, 11/25/21 12:04:00 EDT, [facility]ORE 54808, 157.48, cm, 11/04/21 11:33:00 EDT, Height, 111, kg, 03... Start Date: 11/25/21 Status: Ordered warfarin 5 mg oral tablet 0.5 tablet = 2.5 mg, By Mouth, Daily, Goal INR 2-3 Please follow up with your coumadin clinic, # 15tablet, 0 Refills, Maintenance, 06/12/21 9:27:00 EDT, Tablet, [facility], Partial fill upon patient request if the prescription is for a... Start Date: 06/12/21 Status: Ordered Problem List Condition Effective Dates Status Health Status Inform ant Asthma(Confirmed) Active Atrial fibrillation(Confirmed) Active Back pain(Confirmed) 1 Active Major depression, chronic(Confirmed) Active CHF (congestive heart failur e) (WQRV54-58% on echo 2019)(Confirmed) Active Continuous opioid dependence(Confirmed) [...] Personnel Name: Jose Martinez MD Address: [address], [place] [address]
--- OUTSIDE RECORDS SUMMARY | 2023-08-02 08:38 | XMS_ITS | Continuity of Care Document ---
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 Refills 1, Maintenance, 09/02/18 11:06:29 EDT, Route to Pharmacy Electronically, [id number], [facility] Start Date: 09/02/18 Stop Date: 03/01/19 Status: Ordered amoxicillin 500 mg oral capsule 4 capsule = 2,000 mg, By Mouth, call taker to Procedure, 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 Refills 0, Maintenance, 08/04/17 9:05:52 EDT, Route to Pharmacy Electronically, [id number], [facility] 3 Start Date: 08/04/17 Status: Ordered Ativan 0.5 mg oral tablet 1 tablet = 0.5 mg, By Mouth, 3 times a day, PRN anxiety, # 90 tablet, 2 Refills, Maintenance, 03/20/19 16:41:00 EST, Tablet, [facility]/pharmacy #2339, 157, cm, 01/13/19 9:10:00 EDT, Height, 104, kg, 08/03/17 12:54:00 EDT, Dry Weight Start Date: 03/20/19 Status: Ordered atorvastatin 40 mg oral tablet 1 tablet = 40 mg, By Mouth, Daily, # 30 tablet, 5 Refills, Maintenance, 03/20/19 15:53:00 EST, Tablet, [facility]/pharmacy #2339, 157, cm, 01/13/19 9:10:00 EDT, Height, 104, kg, 08/03/17 12:54:00 EDT, Dry Weight Start Date: 03/20/19 Status: Ordered CeleXA 40 mg oral tablet 1, tablet, By Mouth, Daily, # 90 tablet, Refills 1, Tot. Refills 1, Maintenance, 03/20/19 16:10:00 EST, Route to Pharmacy Electronically, [facility]/pharmacy #2339, 157, cm, 01/13/19 9:10:00 EDT, [...] 0 Refills, Maintenance, 05/10/19 16:13:00 EST, Tablet, [facility]/pharmacy #2339, parital fill upon patient [...] 0 Refills, Maintenance, 04/12/19 9:47:00 EST, [facility]/pharmacy #[id number], parital fill upon patient request, 04/12/19, 157, cm... Start Date: 04/12/19 Stop Date: 05/12/19 Status: Ordered morphine 30 mg/8 to 12 hr oral tablet, extended release 1 tablet = 30 mg, By Mouth, 3 times a day, OPIATE AGREEMENT evaluated every 3 to 6 months, # 84 tablet, 0 Refills, Maintenance, 05/10/19 16:13:00 EST, [facility]/pharmacy #2339, may fill for less, 157, [...] 0 Refills, Soft Stop, 05/10/19 16:02:00 EST, [facility]/pharmacy #2339, 157, cm, 04/21/19 10:26:00 EST, Height, 104, kg, 08/03/17 12:... Start Date: 05/10/19 Status: Ordered [facility] use with inhaler [facility] use with inhaler, See [...] 14:55:12 EDT, Aerosol, Route to Pharmacy Electronically, [id number], [facility]/pharmacy #2339 Start Date: 10/28/18 Status: Ordered [...]
--- OUTSIDE RECORDS SUMMARY | 2023-08-02 08:38 | XMS_ITS | Continuity of Care Document ---
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 Refills 3, Maintenance, 05/28/21 9:14:00 EST, Route to Pharmacy Electronically, [facility], Partial fill upon patient request if the prescription is for a schedule II opioid... Start Date: 05/28/21 Stop Date: 09/25/21 Status: Ordered amLODIPine 5 mg oral tablet 10 mg, Tablet, By Mouth, 05/28/21 9:00:00 EST Start Date: 05/28/21 Stop Date: 05/28/21 Status: Completed ARIPiprazole 5 mg oral tablet 1, tablet, By Mouth, Daily, TO BE COMBINED WITH THE CITALOPRAM THERAPY, # 90 tablet, Refills 1, Route to Pharmacy Electronically, [facility], 162.5, cm, 12/27/20 14:39:00 EDT, Height, 103, kg, 04/10/20 11:20:00 EST, Dry Weight Start Date: 01/16/21 Status: Ordered aspirin 81 mg oral delayed release tablet 81 mg, By Mouth, Daily, # 30 tablet, Refills 11, Tot. Refills 11, Maintenance, 05/28/21 9:14:00 EST, Route to Pharmacy Electronically, [facility], Partial fill upon patient request if the prescription is for a schedule II opioid drug., 1... Start Date: 05/28/21 Stop Date: 3/4/23 Status: Ordered Ativan 0.5 mg oral tablet 1 tablet = 0.5 mg, By Mouth, 3 times a day, PRN anxiety, # 90 tablet, 2 Refills, Maintenance, 02/24/21 14:29:00 EST, Tablet, [facility]/pharmacy #2339, 162.5, cm, 01/29/21 12:38:00 EST, Height, 103, kg, 04/10/20 11:20:00 EST, Dry Weight Start Date: 02/24/21 Status: Ordered citalopram 40 mg oral tablet 1 tablet, By Mouth, Daily, # 90 tablet, 1 Refills, [facility], 162.5, cm, 01/29/21 12:38:00 EST, Height, 103, [...] 0 Refills, Maintenance, 05/12/21 15:33:00 EST, Tablet, [facility], parital fill upon patient request, 162.5, cm, 05/12/21 9... Start Date: 05/12/21 Status: Ordered Dulera 100 mcg-5 mcg/inh inhalation aerosol 2 puffs, Inhalation, 2 times a day, # 13 each, 11 Refills, [facility], 30, INHALE 2 PUFFS TWICE A DAY, 162.5, cm, 01/29/21 12:38:00 EST, Height, 103, kg, 04/10/20 11:20:00 EST, Dry Weight Start Date: 04/08/21 Status: Ordered ferrous sulfate 325 mg oral enteric coated tablet 1, tablet, By Mouth, 2 times a day, # 180 tablet, Refills 1, Route to Pharmacy Electronically, [facility] 60593, 162.5, cm, 01/29/21 12:38:00 EST, Height, 103, kg, 04/10/20 11:20:00 EST, Dry Weight Start Date: 04/07/21 Status: Ordered Lipitor 80 mg oral tablet 1 tablet = 80 mg, By Mouth, Daily at bedtime, # 30 tablet, 3 Refills, Maintenance, 05/28/21 9:15:00EST, Tablet, [facility], Partial fill upon patient request if the prescription is fora schedule II opioid drug., 160, cm, 05/28/21 7:45:... Start Date: 05/28/21 Stop Date: 09/25/21 Status: Ordered lisinopril 20 mg oral tablet 20 mg, Tablet, By Mouth, 05/28/21 9:00:00 EST Start Date: 05/28/21 Stop Date: 05/28/21 Status: Completed lisinopril 20 mg oral tablet 20 mg, 1, tablet, By Mouth, Daily, DOSE INCREASED FROM 10MG TO 20MG DAILY, # 30 tablet, Refills 3, Tot. Refills 3, Maintenance, 05/28/21 9:32:00 EST, Route to Pharmacy Electronically, [facility], Partial fill upon patient request if the... Start Date: 05/28/21 Stop Date: 09/25/21 Status: Ordered metoprolol 25 mg oral tablet, extended release 25 mg, XL Tablet, By Mouth, 05/28/21 9:00:00 EST Start Date: 05/28/21 Stop Date: 05/28/21 Status: Completed Metoprolol Succinate ER 25 mg oral tablet, extended release 1 tablet, By Mouth, Daily, # 90 tablet, 1 Refills, Maintenance, 04/02/21 9:43:00 EST, [facility]/pharmacy #2339, 162.5, cm, 01/29/21 12:38:00 EST, Height, 103, kg, 04/10/20 11:20:00 EST, Dry Weight Start Date: 04/02/21 Status: Ordered morphine 15 mg/8 to 12 hr oral tablet, extended release 1 tablet = 15 mg, By Mouth, Every 8 hours, PRN Pain , Moderate, On substance agreement evaluated every 3 to 6 months, # 90 tablet, 0 Refills, Maintenance, 05/12/21 15:33:00 EST, [facility]/pharmacy #2339, parital fill upon patient request, 162.5, cm, 05/12... Start Date: 05/12/21 Stop Date: 06/11/21 Status: Ordered morphine 30 mg/8 to 12 hr oral tablet, extended release 1 tablet = 30 mg, By Mouth, 3 times a day, OPIATE AGREEMENT evaluated every 3 to 6 months, # 84 tablet, 0 Refills, Maintenance, 05/12/21 15:33:00 EST, [facility]/pharmacy #2339, may fill for less, 162.5, cm, 05/12/21 9:43:00 EST, Height, 103, kg, 04/10/20 1... Start Date: 05/12/21 Stop Date: 06/09/21 Status: Ordered MorPHINE CR Tablet 15 mg, CR Tablet, By Mouth, Every 8 hours, PRN for Pain , Severe, Routine, 05/24/21 12:34:00 EST Notes: Do Not Crush. Start Date: 05/24/21 Stop Date: 05/29/21 Status: Discontinued Multivitamin 1 tablet, By Mouth, Daily, 0 Refills, Maintenance, 05/25/16 13:36:30 EST Start Date: 05/25/16 Status: Ordered nicotine 14 mg/24 hr transdermal film, extended release 1 patch, Topically, Daily, for 14 days, # 14 patch, 0 Refills, Acute 06/11/21 12:09:00 EDT, 05/28/21 12:09:00 EST, Patch, [facility], Partial fill upon patient request if the prescription is for a schedule II opioid drug., 1 patch Topica... Start Date: 05/28/21 Stop Date: 06/11/21 Status: Ordered TaylorTRELYS [facility] use [facility] inhaler [facility] use with inhaler, See Instructions, # 1 [...] each, 1 Refills, Physician Stop, [facility], 162.5, cm, 01/29/21 12:38:00 EST, Height, 103, [...] chronic(Confirmed) Active CHF (congestive heart failur e) (IKKJ13-50% on echo 2019)(Confirmed) Active Continuous opioid dependence(Confirmed) [...] Exam Date Time Procedure Performing Provider Status 05/24/21 12:30 AM Chest 2 Views Frontal and Lat Loida Martinez; Auth (Verified) Notes: (Chest 2 Views Frontal and Lat) Reason For Exam: Chest Pain;Other: RESULT: Chest 2 Views Frontal and Lat Chest 2 Views Frontal and Lat Hx of Present Illness: Pt in hospital wheelchair reporting chest tightness and SOB that started while walking today. Pt reporting she got really sweaty and weak with the pain. Pt just got over a colda few days ago. + smoker.; Reason: Other:; Chest Pain; Clinical Question(s): Other: COMPARISON: 01/18/2020. FINDINGS: LINES AND TUBES: None. LUNGS AND PLEURA: Questionable hazy opacity in the right lung base which may represents overlapping normal structuresversus atelectatic change versus airspace disease. No pleural effusion. No pneumothorax. HEART, MEDIASTINUM AND LIANNA: Heart is normal in size. Normal upper mediastinal and hilar contour. BONES AND SOFT TISSUES: No acute abnormality. IMPRESSION: Questionable right lung base opacity. Clinical correlation and follow-up is recommended. WSN: [id number] Ordering Physician: Niya De Leon Dictated By: Belkys Fournier MD Dictated Date/Time: 05/24/21 5:26 am Reviewed By: Belkys Fournier MD Signed By: Belkys Fournier MD Signed Date/Time: 05/24/21 5:26 am Transcribed By: LOS Transcribed Date/Time: 05/24/21 5:24 am Vital Signs Most recent to oldest [Reference Range]: 1 2 3 Height 160 cm (05/28/21 7:45 AM) 160 cm (05/28/21 3:08 AM) 160 cm (05/27/21 8:29 PM) Weight 106 kg (05/28/21 3:08 AM) 105 kg (05/27/21 3:31 AM) 106.4 kg (05/26/21 2:05 AM) Oxygen Saturation [94-100 %] 95 % (05/28/21 7:45 AM) 92 % *L* (05/28/21 3:08 AM) 95 % (05/27/21 8:29 PM) Pulse Rate [55-90 bpm] 61 bpm (05/28/21 9:19 AM) 61 bpm (05/28/21 7:45 AM) 81 bpm (05/28/21 3:08 AM) Body Mass Index [18.5-24.99] 41.41 *>HHI* (05/28/21 3:08 AM) 41.56 *>HHI* (05/26/21 2:05 AM) 43.75 *>HHI* (05/24/21 7:16 AM) Blood Pressure [90-138/55-84 mm Hg] 125/49mm Hg (05/28/21 9:19 AM) 125/49mm Hg (05/28/21 9:19 AM) 125/49mm Hg (05/28/21 9:19 AM) Respiratory Rate [16-30 br/min] 18 br/min (05/28/21 4:43 PM) 18 br/min (05/28/21 10:29 AM) 18 br/min (05/28/21 9:19 AM) Temperature [96.8-100.4 DegF] 97.5 DegF (05/28/21 7:45 AM) 98.2 DegF (05/28/21 3:08 AM) 98.4 DegF (05/27/21 8:29 PM) Mode of Delivery (Oxygen) Room air (05/28/21 7:45 AM) Room air (05/28/21 3:08 AM) Room air (05/27/21 8:29 PM) Blood pressure sites Arm, left (05/28/21 7:45 AM) Arm, left (05/28/21 3:08 AM) Arm, left (05/27/21 8:29 PM) Temperature Route Oral (05/28/21 7:45 AM) Oral (05/28/21 3:08 AM) Oral (05/27/21 8:29 PM) Weight Obtained Via Bed scale (05/28/21 3:08 AM) Bed scale (05/27/21 3:31 AM) Bed scale (05/26/21 2:05 AM) Social History Social History Type Response Smoking Status 5-9 cigarettes (betw een 1/4 to 1/2 pack)/day in last 30 days; Other: Started at 23 years old; entered on: 01/18/20 Sex
--- OUTSIDE RECORDS SUMMARY | 2023-08-02 08:39 | XMS_ITS | Continuity of Care Document ---
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 no contraindications per patient 5Admin Note: [facility] 6Admin Note: [employer],[place] 7Admin Note: Novaritis Medications Albuterol (Eqv-ProAir HFA) 2 puffs, Inhalation, Every 6 hours, 0 Refills, Maintenance, 10/13/21 13:54:00 EDT, Partial fill upon patient request if the prescription is for a schedule II opioid drug. Start Date: 10/13/21 Status: Ordered amLODIPine 10 mg oral tablet 1 tablet, By Mouth, Daily, # 90 tablet, 3 Refills, Maintenance, 02/23/22 8:50:00 EST, [facility], 157.48, cm, 01/20/22 14:40:00 EDT, Height, 111, kg, 06/10/21 15:06:00 EDT, Dry Weight Start Date: 02/23/22 Status: Ordered ARIPiprazole 5 mg oral tablet 1, tablet, By Mouth, Daily, X90 DAYS,INSTR:TO BE COMBINED WITH THE CITALOPRAM THERAPY, # 90 tablet,Refills 1, Maintenance, 07/26/22 7:25:00 EDT, Route to Pharmacy Electronically, [facility] 98737, 157.48, cm, 05/18/22 9:48:00 EST, Height, 111, kg, 03/... Start Date: 07/26/22 Status: Ordered aspirin 81 mg oral delayed release tablet 81 mg, By Mouth, Daily, # 30 tablet, Refills 11, Tot. Refills 11, Maintenance, 06/12/21 9:27:00 EDT, Route to Pharmacy Electronically, [facility], Partial fill upon patient request if the prescription is for a schedule II opioid drug., 1... Start Date: 06/12/21 Stop Date: 06/07/22 Status: Ordered Ativan 0.5 mg oral tablet 1 tablet = 0.5 mg, By Mouth, Daily at bedtime, PRN as needed for anxiety, # 30 tablet, 5 Refills, Maintenance, 05/25/22 7:04:00 EST, Tablet, [facility]/pharmacy #2339, Partial fill upon patient request if the prescription is for a schedule II opioid drug., 1... Start Date: 05/25/22 Status: Ordered citalopram 40 mg oral tablet 1 tablet, By Mouth, Daily, # 90 tablet, 1 Refills, Maintenance, 06/22/22 14:38:00 EDT, [facility], 157.48, cm, 05/18/22 9:48:00 EST, Height, 111, [...] # 90 tablet, 1 Refills, [facility], 90, TAKE 1 TABLET BY MOUTH EVERY [...] each, 11 Refills, Maintenance, 07/08/22 11:55:00 EDT, [facility]99, 30, INHALE 2 PUFFS TWICE A DAY, 157.48, cm, 05/18/22 9:48:00 EST, Height, 111, kg, 06/10/21 15:06:00 EDT, Dry Weight Start Date: 07/08/22 Status: Ordered Entresto 24 mg-26 mg oral tablet 1 tablet, By Mouth, 2 times a day, # 60 tablet, 11 Refills, [facility], 30, TAKE 1 TABLET BY MOUTH TWICE A DAY, 157.48, cm, 08/12/21 10:44:00 EDT, Height, 111, kg, 06/10/21 15:06:00 EDT, Dry Weight Start Date: 09/18/21 Status: Ordered ferrous sulfate 325 mg oral enteric coated tablet 1, tablet, By Mouth, 2 times a day, # 180 tablet, Refills 1, Maintenance, 07/26/22 7:26:00 EDT, Route to Pharmacy Electronically, [facility] 34214, 157.48, cm, 05/18/22 9:48:00 EST, Height, 111, kg, 06/10/21 15:06:00 EDT, Dry Weight Start Date: 07/26/22 Status: Ordered furosemide 20 mg oral tablet 1, tablet, By Mouth, Daily, # 90 tablet, Refills 1, Maintenance, 07/02/22 8:00:00 EDT, Route to Pharmacy Electronically, [facility] 19018, 157.48, cm, 05/18/22 9:48:00 EST, Height, 111, kg, 06/10/21 15:06:00 EDT, Dry Weight Start Date: 07/02/22 Status: Ordered furosemide 20 mg oral tablet 1, tablet, By Mouth, Daily, # 30 tablet, Refills 5, Maintenance, 12/30/21 15:04:00 EDT, Route to Pharmacy Electronically, [facility] 06127, 157.48, cm, 11/04/21 11:33:00 EDT, Height, 111, [...] tablet, 2 Refills, Maintenance, 05/21/22 10:15:00 EST, [facility], 157.48, cm, 05/18/22 9:48:00 EST, Height, 111, kg, 06/10/21 15:06:00 EDT, Dry Weight Start Date: 05/21/22 Status: Ordered rOPINIRole 0.25 mg oral tablet See Instructions, TAJE 1 TABLET BY MOUTH AT BEDTIME FOR 1 WEEK THEN INCRAESE TO 2 AT NIGHT FOR 1 WEEK THEN 3 EVERY NIG, # 270 tablet, 1 Refills, Maintenance, 06/22/22 14:48:00 EDT, [facility], 157.48, cm, 05/18/22 9:48:00 EST, Height, 111, kg, 03... Start Date: 06/22/22 Status: Ordered spironolactone 25 mg oral tablet 0.5, tablet, By Mouth, Daily, # 45 tablet, Refills 1, Maintenance, 05/21/22 10:15:00 EST, Route to Pharmacy Electronically, [facility] 99837, 157.48, cm, 05/18/22 9:48:00 EST, Height, 111, [...] chronic Confirmed Active CHF (congestive heart failure) (JMCK26-58% on echo 2019) Confirmed Active Coronary artery [...] oldest [Reference Range]: 1 Height 157.48 cm (08/28/22 9:39 AM) Weight 127.1 kg (08/28/22 9:39 AM) Oxygen Saturation [94-100 %] 97 % (08/28/22 9:39 AM) Pulse Rate [55-90 bpm] 55 bpm (08/28/22 9:39 AM) Body Mass Index [18.5-24.99 kg/m2] 51.25 kg/m2 *>HHI* (08/28/22 9:39 AM) Blood Pressure [90-138/55-84 mm Hg] 111/ 78mm Hg (08/28/22 9:39 AM) Blood pressure sites Arm, left (08/28/22 9:39 AM) Social History Social History Type Response Smoking Status Former smoker, quit more than 30 days ago; Other: quit June 2021; entered on: 05/18/22 Sex Female Patient Care team information Care Team Personnel Name: Radha Villela Position: [facility] Supguerda Member Role: Primary Care Nurse Name: Nichole Coates RN Position: [facility] RN Member Role: Primary Care Nurse Name: Ksenia Herzog RN Position: [facility] RN Member Role: Primary Care Nurse Name: Leatha Walsh RN Position: [facility] RN Member Role: Primary Care Nurse Name: Milagro Sims RN Position: [facility] RN Member Role: Primary Care Nurse Name: Jo Ann Stubbs PharmD Position: [facility] Associate Professional Member Role: Lifetime Consulting Provider Address: Address: [address] [place] [id number] Name: Anne Gonzalez RN Position: [facility] RN Member Role: Primary Care Nurse Name: Mckayla Wilcox RN Position: [facility] SN RN Member Role: Primary Care Nurse Name: Simin Chen RN Position: [facility] RN Member Role: Primary Care Nurse Name: Jose Martinez MD Position: [facility] Physician - Primary Care Member Role: PCP Address: Address: [address] [place] [id number]- Name: Aleks Merchant RN Position: [facility] RN Member Role: Primary Care Nurse Name: Genet Bowman RN Position: [facility] SN RN Member Role: Primary Care Nurse Name: Ilana Burns RN Position: [facility] RN Member Role: Primary Care Nurse Care Team Related Persons Name: TUTU ROWLAND Address: home [address] [place] [address] Name: JANET CONNOR Address: home [address] [place] [address]
--- OUTSIDE RECORDS SUMMARY | 2023-08-02 08:39 | XMS_ITS | Continuity of Care Document ---
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 [facility] 6Admin Note: [facility],[place] 7Admin Note: Novaritis Medications Albuterol (Eqv-ProAir HFA) 2 puffs, Inhalation, Every 6 hours, 0 Refills, Maintenance, 10/13/21 13:54:00 EDT, Partial fill upon patient request if the prescription is for a schedule II opioid drug. Start Date: 10/13/21 Status: Ordered amLODIPine 10 mg oral tablet 1 tablet, By Mouth, Daily, # 90 tablet, 1 Refills, Maintenance, 01/25/23 22:10:00 EST, [facility] 07892, 157.48, cm, 11/17/22 16:49:00 EDT, Height, 111, kg, 06/10/21 15:06:00 EDT, Dry Weight Start Date: 01/25/23 Status: Ordered ARIPiprazole 5 mg oral tablet 1, tablet, By Mouth, Daily, TO BE COMBINED WITH THE CITALOPRAM THERAPY., # 90 tablet, Refills 0, Maintenance, 01/25/23 22:12:00 EST, Route to Pharmacy Electronically, [facility] 57523, 157.48, cm, 11/17/22 16:49:00 EDT, Height, 111, kg, 06/10/21 15:06:... Start Date: 01/25/23 Status: Ordered aspirin 81 mg oral delayed [...] 5 Refills, Maintenance, 12/04/22 15:42:00 EDT, Tablet, [facility]/pharmacy #2339, Partial fill upon patient request if the prescription is for a schedule II opioid drug.,... Start Date: 12/04/22 Status: Ordered atorvastatin 80 mg oral tablet 1 tablet, By Mouth, Daily at bedtime, # 90 tablet, 1 Refills, Maintenance, 10/12/22 12:22:00 EDT, [facility], 157.48, cm, 08/28/22 9:39:00 EDT, Height, 111, kg, 06/10/21 15:06:00 EDT, Dry Weight Start Date: 10/12/22 Status: Ordered citalopram 40 mg oral tablet 1 tablet, By Mouth, Daily, # 90 tablet, 1 Refills, Maintenance, 11/25/22 22:48:00 EDT, [facility], 157.48, cm, 11/17/22 16:49:00 EDT, Height, 111, [...] # 90 tablet, 1 Refills, [facility], 90, TAKE 1 TABLET BY MOUTH EVERY [...] Refills, Maintenance, 07/08/22 11:55:00 EDT, [facility], 30, INHALE 2 PUFFS TWICE A DAY, 157.48, cm, 05/18/22 9:48:00 EST, Height, 111, kg, 06/10/21 15:06:00 EDT, Dry Weight Start Date: 07/08/22 Status: Ordered Entresto 24 mg-26 mg oral tablet 1 tablet, By Mouth, 2 times a day, # 60 tablet, 11 Refills, Maintenance, 09/21/22 14:36:00 EDT, [facility], 30, TAKE 1 TABLET BY MOUTH TWICE A DAY, 157.48, cm, 08/28/22 9:39:00 EDT, Height, 111,kg, 06/10/21 15:06:00 EDT, Dry Weight Start Date: 09/21/22 Status: Ordered Entresto 24 mg-26 mg oral tablet 1 tablet, By Mouth, 2 times a day, # 60 tablet, 11 Refills, [facility], 30, TAKE 1 TABLET BY MOUTH TWICE A DAY, 157.48, cm, 08/12/21 10:44:00 EDT, Height, 111, kg, 06/10/21 15:06:00 EDT, Dry Weight Start Date: 09/18/21 Status: Ordered ferrous sulfate 325 mg oral enteric coated tablet 1, tablet, By Mouth, 2 times a day, # 180 tablet, Refills 1, Maintenance, 07/26/22 7:26:00 EDT, Route to Pharmacy Electronically, [facility], 157.48, cm, 05/18/22 9:48:00 EST, Height, 111, kg, 06/10/21 15:06:00 EDT, Dry Weight Start Date: 07/26/22 Status: Ordered furosemide 20 mg oral tablet 1, tablet, By Mouth, Daily, # 90 tablet, Refills 1, Maintenance, 12/28/22 9:01:00 EDT, Route to Pharmacy Electronically, [facility] 58890, 157.48, cm, 11/17/22 16:49:00 EDT, Height, 111, kg, 06/10/21 15:06:00 EDT, Dry Weight Start Date: 12/28/22 Status: Ordered furosemide 20 mg oral tablet 1, tablet, By Mouth, Daily, # 90 tablet, Refills 1, Maintenance, 07/02/22 8:00:00 EDT, Route to Pharmacy Electronically, [facility] 75022, 157.48, cm, 05/18/22 9:48:00 EST, Height, 111, kg, 06/10/21 15:06:00 EDT, Dry Weight Start Date: 07/02/22 Status: Ordered furosemide 20 mg oral tablet 1, tablet, By Mouth, Daily, # 30 tablet, Refills 5, Maintenance, 12/30/21 15:04:00 EDT, Route to Pharmacy Electronically, [facility] 42272, 157.48, cm, 11/04/21 11:33:00 EDT, Height, 111, kg, 06/10/2214:06:00 EDT, Dry Weight Start Date: 12/30/21 Status: Ordered Metoprolol Succinate ER 100 mg oral tablet, extended release 1.5 tablet = 150 mg, By Mouth, Daily, # 135 tablet, 3 Refills, Maintenance, 10/12/22 15:26:00 EDT, XL Tablet, [facility]/pharmacy #2339, Partial fill upon [...] tablet, 0 Refills, Maintenance, 01/25/23 22:13:00 EST, [facility] 20268, 157.48, cm, 11/17/22 16:49:00 EDT, Height, 111, kg, 0... Start Date: 01/25/23 Status: Ordered spironolactone 25 mg oral tablet 0.5, tablet, By Mouth, Daily, # 45 tablet, Refills 1, Maintenance, 05/21/22 10:15:00 EST, Route to Pharmacy Electronically, [facility] 50287, 157.48, cm, 05/18/22 9:48:00 EST, Height, 111, kg, 06/10/21 15:06:00 EDT, Dry Weight Start Date: 05/21/22 Status: Ordered warfarin 5 mg oral tablet See Instructions, Take 1/2 to 1 tablet By Mouth Daily as directed by coumadin clinic, # 90 tablet, 2 Refills, Maintenance, 05/12/22 13:52:00 EST, Tablet, [facility]/pharmacy #2339, Partial fill upon patientrequest if the prescription is for a schedule II... Start Date: 05/12/22 Status: Ordered Problem List Condition Confirmation Course Effective Dates Status H ealth Status Informant Asthma Confirmed Active Atrial fibrillation Confirmed Active Back pain 1 Confirmed Active Cardiomyopathy Confirmed Active Major depression, chronic Confirmed Active CHF (congestive heart failure) (RTIN44-23% on echo 2019) Confirmed Active Coronary artery [...] Care Team Personnel Name: Radha Villela Position: [facility] RN Supv Member Role: Primary Care Nurse Name: Nichole Coates RN Position: [facility] RN Member Role: Primary Care Nurse Name: Ksenia Herzog RN Position: [facility] RN Member Role: Primary Care Nurse Name: Leatha Walsh RN Position: [facility] RN Member Role: Primary Care Nurse Name: Milagro Sims RN Position: [facility] Nurse Member Role: Primary Care Nurse Name: Jo Ann Stubbs PharmD Position: [facility] Associate Professional Member Role: Lifetime Consulting Provider Address: Address: [address] [place] [id number] [place] Name: Anne Gonzalez RN Position: [facility] RN Member Role: Primary Care Nurse Name: Mckayla Wilcox RN Position: [facility] SN RN Member Role: Primary Care Nurse Name: Simin Chen RN Position: [facility] RN Member Role: Primary Care Nurse Name: Jose Martinez MD Position: [facility] Physician - Primary Care Member Role: PCP Address: Address: [address] [place] [id number]- [place] Name: Aleks Merchant RN Position: [facility] RN Member Role: Primary Care Nurse Name: Genet Bowman RN Position: [facility] SN RN Member Role: Primary Care Nurse Name: Ilana Burns RN Position: [facility] RN Member Role: Primary Care Nurse Care Team Related Persons Name: TUTU ROWLAND Address: [address] [place] [address] Name: JANET CONNOR Address: [address] [place] [address]
--- OUTSIDE RECORDS SUMMARY | 2023-08-02 08:39 | XMS_ITS | Continuity of Care Document ---
Author Organization [facility] Adult Address Unknown Care Team Providers Care Ice Puller Name Role Phone Jose Martinez MD Primary Care Physician [phone] Encounter [facility] Date(s): 06/17/21 - 06/24/21 [facility] Adult Encounter Diagnosis CHF (congestive heart failure) (YTVN84-19% on echo 2019)(Discharge Diagnosis) - 06/22/21 Hypertension(Discharge Diagnosis) - 06/22/21 Attending Physician: Jose Martinez MD Allergies, Adverse [...] 7 01/21/09 Given 1Result Comment: [facility]:[id number] 2Result Comment: [01/19/2018] [id number] 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 no contraindications per patient 5Admin Note: [facility] 6Admin Note: [employer]/Rixensart,[place] 7Admin Note: Novaritis Medications ARIPiprazole 5 mg oral tablet 1, tablet, By Mouth, Daily, TO BE COMBINED WITH THE CITALOPRAM THERAPY, # 90 tablet, Refills 0, Route to Pharmacy Electronically, [facility], 160, cm, 06/02/21 13:26:00 EDT, Height, 103, kg, 04/10/20 11:20:00 EST, Dry Weight Start Date: 06/03/21 Status: Ordered aspirin 81 mg oral delayed release tablet 81 mg, By Mouth, Daily, # 30 tablet, Refills 11, Tot. Refills 11, Maintenance, 06/12/21 9:27:00 EDT, Route to Pharmacy Electronically, [facility], Partial fill upon patient request if [...] Mouth, Daily, # 90 tablet, 1 Refills, [facility] 125[facility], 162.5, cm, 01/29/21 12:38:00 EST, Height, 103, kg, 04/10/20 11:20:00 EST, Dry Weight Start Date: 04/07/21 Status: Ordered Dulera 100 mcg-5 mcg/inh inhalation aerosol 2 puffs, Inhalation, 2 times a day, # 1 each, 11 Refills, 06/02/21 14:01:00 EDT, [facility]/pharmacy #2339, 2 puffs Inhalation 2 times a day, 160, cm, 06/02/21 13:26:00 EDT, Height, 103, kg, 04/10/20 11:20:00 EST, Dry Weight Start Date: 06/02/21 Status: Ordered ferrous sulfate 325 mg oral enteric coated tablet 1, tablet, By Mouth, 2 times a day, # 180 tablet, Refills 1, Route to Pharmacy Electronically, [facility] 12839, 162.5, cm, 01/29/21 12:38:00 EST, Height, 103, [...] of lasix that day and call your adapted physical education aide's office for a... Start Date: 06/12/21 Status: Ordered Lipitor 80 mg oral tablet 1 tablet = 80 mg, By Mouth, Daily at bedtime, # 30 tablet, 11 Refills, Maintenance, 06/12/21 9:27:00 EDT, Tablet, [facility], Partial fill upon patient request if the prescription is for a schedule II opioid drug., 157.48, cm, 06/10/21 1... Start Date: 06/12/21 Status: Ordered lisinopril 5 mg oral tablet 5 mg, 1, tablet, By Mouth, Daily, # 30 tablet, Refills 2, Tot. Refills 2, Maintenance, 06/12/21 9:27:00 EDT, Route to Pharmacy Electronically, [facility], Partial fill upon patient request if the prescription is for a schedule II opioid... Start Date: 06/12/21 Status: Ordered Metoprolol Succinate ER 25 mg oral tablet, extended release 1 tablet, By Mouth, Daily, # 30 tablet, 1 Refills, Maintenance, 06/12/21 9:27:00 EDT, [facility], 157.48, cm, 06/10/21 17:04:00 EDT, [...] 5 Refills, Maintenance, 06/09/21 15:31:00 EDT, Tablet, [facility]/pharmacy #2339, Partial fill upon patient request [...] # 54 each, 1 Refills, Physician Stop, [facility] 97754, 162.5, cm, 01/29/21 12:38:00 EST, Height, 103, kg, 04/10/20 11:20:00 EST, Dry Weight Start Date: 04/07/21 Stop Date: 07/06/21 Status: Ordered warfarin 5 mg oral tablet 0.5 tablet = 2.5 mg, By Mouth, Daily, Goal INR 2-3 Please follow up with your coumadin clinic, # 15tablet, 0 Refills, Maintenance, 06/12/21 9:27:00 EDT, Tablet, [facility], Partial fill upon patient request if the prescription is for a... Start Date: 06/12/21 Status: Ordered Problem List Condition Effective Dates Status Health Status Inform ant Asthma(Confirmed) Active Atrial fibrillation(Confirmed) Active Back pain(Confirmed) 1 Active Major depression, chronic(Confirmed) Active CHF (congestive heart failur e) (KTHO84-70% on 2019)(Confirmed) Active Continuous opioid dependence(Confirmed) Active [...] Clinical Service Informant CHF (congestive heart failure) (AQZF41-39% on 2019) Discharge Diagnosis 06/22/21 Hypertension Discharge Diagnosis 06/22/21 Vital Signs Most recent to oldest [Reference Range]: 1 Height 157.48 cm (06/17/21 10:52 AM) Weight 109.2 kg (06/17/21 10:52 AM) Oxygen Saturation [94-100 %] 98 % (06/17/21 10:52 AM) Pulse Rate [55-90 bpm] 74 bpm (06/17/21 10:52 AM) Body Mass Index [18.5-24.99] 44.03 *>HHI* (06/17/21 10:52 AM) Blood Pressure [90-138/55-84 mm Hg] 124/ 82mm Hg (06/17/21 10:52 AM) Blood pressure sites Arm, left (06/17/21 10:52 AM) Social History Social History Type Response Smoking Status 5-9 cigarettes (betw een 1/4 to 1/2 pack)/day in last 30 days; Other: Started at 23 years old; entered on: 01/18/20 Sex
--- OUTSIDE RECORDS SUMMARY | 2023-08-02 08:39 | XMS_ITS | Continuity of Care Document ---
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 no contraindications per patient 5Admin Note: [facility] 6Admin Note: [employer]/Rixensart,[place] 7Admin Note: Novaritis Medications amLODIPine 10 mg oral tablet 10 mg, 1, tablet, By Mouth, Daily, for 30 days, # 30 tablet, Refills 3, Tot. Refills 3, Hard Stop 09/25/21 9:14:00 EDT, 05/28/21 9:14:00 EST, Route to Pharmacy Electronically, [facility], Partial fill upon patient request if the prescrip... Start Date: 05/28/21 Stop Date: 09/25/21 Status: Ordered ARIPiprazole 5 mg oral tablet 1, tablet, By Mouth, Daily, TO BE COMBINED WITH THE CITALOPRAM THERAPY, # 90 tablet, Refills 0, Route to Pharmacy Electronically, [facility] 39704, 160, cm, 06/02/21 13:26:00 EDT, Height, 103, kg, 04/10/20 11:20:00 EST, Dry Weight Start Date: 06/03/21 Status: Ordered aspirin 81 mg oral delayed release tablet 81 mg, By Mouth, Daily, # 30 tablet, Refills 11, Tot. Refills 11, Maintenance, 05/28/21 9:14:00 EST, Route to Pharmacy Electronically, [facility], Partial fill upon patient request if the prescription is for a schedule II opioid drug., 1... Start Date: 05/28/21 Stop Date: 05/23/22 Status: Ordered Ativan 0.5 mg oral tablet 1 tablet = 0.5 mg, By Mouth, 3 times a day, PRN anxiety, # 90 tablet, 2 Refills, Maintenance, 02/24/21 14:29:00 EST, Tablet, [facility]/pharmacy #2339, 162.5, cm, 01/29/21 12:38:00 EST, Height, 103, kg, 04/10/20 11:20:00 EST, Dry Weight Start Date: 02/24/21 Status: Ordered citalopram 40 mg oral tablet 1 tablet, By Mouth, Daily, # 90 tablet, 1 Refills, [facility] 48385, 162.5, cm, 01/29/21 12:38:00 EST, Height, 103, kg, 04/10/20 11:20:00 EST, Dry Weight Start Date: 04/07/21 Status: Ordered Dilaudid 2 mg oral tablet 1 tablet = 2 mg, By Mouth, Daily, PRN Pain , Mild, On substance agreement evaluated every 3 to 6 months, # 28 tablet, 0 Refills, Maintenance, 05/12/21 15:33:00 EST, Tablet, [facility]/pharmacy #2339, parital fill upon patient request, 162.5, cm, 05/12/21 9... Start Date: 05/12/21 Status: Ordered Dulera 100 mcg-5 mcg/inh inhalation aerosol 2 puffs, Inhalation, 2 times a day, # 1 each, 11 Refills, 06/02/21 14:01:00 EDT, [facility]/pharmacy #2339, 2 puffs Inhalation 2 times a day, 160, cm, 06/02/21 13:26:00 EDT, Height, 103, kg, 04/10/20 11:20:00 EST, Dry Weight Start Date: 06/02/21 Status: Ordered ferrous sulfate 325 mg oral enteric coated tablet 1, tablet, By Mouth, 2 times a day, # 180 tablet, Refills 1, Route to Pharmacy Electronically, [facility] 94371, 162.5, cm, 01/29/21 12:38:00 EST, Height, 103, kg, 04/10/20 11:20:00 EST, Dry Weight Start Date: 04/07/21 Status: Ordered Lipitor 80 mg oral tablet 1 tablet = 80 mg, By Mouth, Daily at bedtime, # 30 tablet, 3 Refills, Maintenance, 05/28/21 9:15:00EST, Tablet, [facility], Partial fill upon patient request if the prescription is fora schedule II opioid drug., 160, cm, 05/28/21 7:45:... Start Date: 05/28/21 Stop Date: 09/25/21 Status: Ordered lisinopril 20 mg oral tablet 20 mg, 1, tablet, By Mouth, Daily, DOSE INCREASED FROM 10MG TO 20MG DAILY, # 30 tablet, Refills 5, Tot. Refills 5, Maintenance, 09/25/21 9:32:00 EDT, Route to Pharmacy Electronically, [facility]/pharmacy #2339, Partial fill upon patient request if the prescr... Start Date: 09/25/21 Status: Ordered Metoprolol Succinate ER 25 mg oral tablet, extended release 1 tablet, By Mouth, Daily, # 90 tablet, 1 Refills, Maintenance, 04/02/21 9:43:00 EST, [facility]/pharmacy #2339, 162.5, cm, 01/29/21 12:38:00 EST, Height, 103, kg, 04/10/20 11:20:00 EST, Dry Weight Start Date: 04/02/21 Status: Ordered morphine 30 mg/8 to 12 hr oral tablet, extended release 1 tablet = 30 mg, By Mouth, 3 times a day, OPIATE AGREEMENT evaluated every 3 to 6 months, # 84 tablet, 0 Refills, Maintenance, 05/12/21 15:33:00 EST, [facility]/pharmacy #2339, may fill for less, 162.5, cm, 05/12/21 9:43:00 EST, Height, 103, kg, 04/10/20 1... Start Date: 05/12/21 Stop Date: 06/09/21 Status: Ordered multivitamin Multiple Vitamins oral tablet 1 tablet, By Mouth, Daily, # 30 tablet, 5 Refills, Maintenance, 06/09/21 15:31:00 EDT, Tablet, [facility]/pharmacy #2339, Partial fill upon [...] opioid drug. Start Date: 06/11/21 Status: Ordered torsemide 5 mg oral tablet [...] each, 1 Refills, Physician Stop, [facility] 568[facility], 162.5, cm, 01/29/21 12:38:00 EST, Height, 103, [...] chronic(Confirmed) Active CHF (congestive heart failur e) (HCMY45-58% on echo 2019)(Confirmed) Active Continuous opioid dependence(Confirmed) [...]
--- OUTSIDE RECORDS SUMMARY | 2023-08-02 08:39 | XMS_ITS | Continuity of Care Document ---
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 Refills 11, Maintenance, 05/11/20 14:19:00 EDT, [facility], cm, 07/31/19 13:53:00 EDT, Height, 1... Start Date: 07/31/19 Status: Ordered amLODIPine 5 mg oral tablet 5 mg, 1, tablet, By Mouth, Daily, # 90 tablet, Refills 0, Tot. Refills 0, Maintenance, 05/19/19 14:39:00 EST, [facility], 157, cm, 04/21/19 10:26:00 EST, Height, 104, kg, 08/03/17 12:54:00 EDT, Dry Weight Start Date: 05/19/19 Stop Date: 08/17/19 Status: Ordered amLODIPine 5 mg oral tablet 1 tablet = 5 mg, By Mouth, Daily, # 90 tablet, 1 Refills, Maintenance, 10/12/19 11:34:00 EDT, [facility] 157, cm, 08/25/19 15:55:00 EDT, Height, Dry Weight Start Date: 10/12/19 Status: Ordered amoxicillin 500 mg oral capsule 4 capsule = 2,000 mg, By Mouth, director call to Procedure, 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 Refills 0, Maintenance, 08/04/17 9:05:52 EDT, Route to Pharmacy Electronically, [id number], [facility] 3 Start Date: 08/04/17 Status: Ordered Ativan 0.5 mg oral tablet 1 tablet = 0.5 mg, By Mouth, 3 times a day, PRN anxiety, # 90 tablet, 2 Refills, Maintenance, 07/24/19 17:04:00 EDT, Tablet, [facility] 157, cm, 04/21/19 10:26:00 EST, Height, 104, kg, 08/03/17 12:54:00 EDT, Dry Weight Start Date: 07/24/19 Status: Ordered atorvastatin 40 mg oral tablet 1 tablet = 40 mg, By Mouth, Daily, # 30 tablet, 5 Refills, Maintenance, 09/17/19 11:30:00 EDT, Tablet, [facility]/pharmacy #2339, 157, cm, 08/25/19 15:55:00 EDT, Height, Dry Weight Start Date: 09/17/19 Status: Ordered citalopram 40 mg oral tablet 1 tablet, By Mouth, Daily, # 90 tablet, 1 Refills, Maintenance, 10/03/19 13:25:00 EDT, [facility], 157, cm, 08/25/19 15:55:00 EDT, Height Start [...] 0 Refills, Maintenance, 10/02/19 15:43:00 EDT, Tablet, [facility]/pharmacy #2339, parital fill upon patient request, 157, cm, 08/25/19 15:... Start Date: 10/02/19 Status: Ordered Dulera 100 mcg-5 mcg/inh inhalation aerosol 2 puffs, Inhalation, 2 times a day, # 1 each, 11 Refills, Maintenance, 07/31/19 14:15:00 EDT, Aerosol, [facility]/pharmacy #2339, 2 puffs Inhalation 2 times [...] tablet, 0 Refills, Maintenance, 10/10/19 14:02:00 EDT, [facility]/pharmacy #2339, parital fill upon patient request, [...] 0 Refills, Soft Stop, 05/10/19 16:02:00 EST, [facility]/pharmacy #2339, 157, cm, 04/21/19 10:26:00 EST, Height, 104, kg, 08/03/17 12:... Start Date: 05/10/19 Status: Ordered Nicoderm C-Q 21 mg/24 hr transdermal film, extended release 1 patch, Topically, Daily, # 30 patch, 3 Refills, Maintenance, 08/25/19 16:23:00 EDT, Patch, [facility], 157, cm, 08/25/19 15:55:00 EDT, Height Start Date: 08/25/19 Status: Ordered [facility] use with inhaler [facility] use with inhaler, See Instructions, # [...] 14:55:12 EDT, Aerosol, Route to Pharmacy Electronically, [id number], [facility]/pharmacy #2339 Start Date: 10/28/18 Status: Ordered [...]
--- OUTSIDE RECORDS SUMMARY | 2023-08-02 08:39 | XMS_ITS | Continuity of Care Document ---
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 Start Date: 08/06/21 Stop Date: 08/01/22 Status: Ordered aspirin 81 mg oral delayed release tablet 81 mg, By Mouth, Daily, # 30 tablet, Refills 11, Tot. Refills 11, Maintenance, 06/12/21 9:27:00 EDT, Route to Pharmacy Electronically, [facility], Partial fill upon patient request if the prescription is for a schedule II opioid drug., 1... Start Date: 06/12/21 Stop Date: 06/07/22 Status: Ordered Ativan 0.5 mg oral tablet 1 tablet = 0.5 mg, By Mouth, Daily at bedtime, PRN as needed for anxiety, # 30 tablet, 1 Refills, Maintenance, 11/25/21 15:15:00 EDT, Tablet, [facility]/pharmacy #2339, Partial fill upon patient request if the prescription is for a schedule II opioid drug.,... Start Date: 11/25/21 Status: Ordered citalopram 40 mg oral tablet 1 tablet, By Mouth, Daily, for 90 days, # 90 tablet, 3 Refills, Physician Stop 08/01/22 9:01:00 EDT, 08/06/21 9:01:00 EDT, [facility]/pharmacy #2339, 157.48, cm, 08/05/21 [...] EVERY DAY, # 90 tablet, 1 Refills, [facility] 49047, 90, TAKE 1 TABLET BY MOUTH EVERY DAY, 157.48, cm, 08/12/21 10:44:00 EDT, Height, 111, kg, 06/10/21 15:06:00 EDT, Dry Weight Start Date: 10/31/21 Status: Ordered Dulera 100 mcg-5 mcg/inh inhalation aerosol 2 puffs, Inhalation, 2 times a day, # 1 each, 11 Refills, 06/02/21 14:01:00 EDT, [facility]/pharmacy #2339, 2 puffs Inhalation 2 times a day, 160, cm, 06/02/21 13:26:00 EDT, Height, 103, kg, 04/10/20 11:20:00 EST, Dry Weight Start Date: 06/02/21 Status: Ordered Entresto 24 mg-26 mg oral tablet 1 tablet, By Mouth, 2 times a day, # 60 tablet, 11 Refills, [facility] 12565, 30, TAKE 1 TABLET BY MOUTH TWICE [...] 08/06/21 9:01:00 EDT, Route to Pharmacy Electronically, [facility]/pharmacy #2339, 157.48, cm, 08/05/21 14:31:00 EDT, Height, 111,... Start Date: 08/06/21 Stop Date: 08/01/22 Status: Ordered furosemide 20 mg oral tablet 1, tablet, By Mouth, Daily, # 30 tablet, Refills 1, Maintenance, 12/02/21 12:39:00 EDT, Route to Pharmacy Electronically, [facility] 33076, 157.48, cm, 11/04/21 11:33:00 EDT, Height, 111, kg, 06/10/2214:06:00 EDT, Dry Weight Start Date: 12/02/21 Status: Ordered Lipitor 80 mg oral tablet 1 tablet = 80 mg, By Mouth, Daily at bedtime, # 30 tablet, 11 Refills, Maintenance, 06/12/21 9:27:00 EDT, Tablet, [facility], Partial fill upon patient request if the prescription is for a schedule II opioid drug., 157.48, cm, 06/10/21 1... Start Date: 06/12/21 Status: Ordered metoprolol 100 mg oral tablet, extended release 100 mg, 1, tablet, By Mouth, Daily, # 90 tablet, Refills 3, Tot. Refills 3, Maintenance, 09/11/21 12:08:00 EDT, Route to Pharmacy Electronically, [facility]/pharmacy #2339, 157.48, cm, 08/12/21 [...] tablet, 0 Refills, Maintenance, 08/19/21 14:03:00 EDT, [facility]/pharmacy #2339, parital [...] tablet, 0 Refills, Maintenance, 11/25/21 15:15:00 EDT, [facility], parital fill upon patient [...] tablet, 1 Refills, Maintenance, 11/25/21 12:04:00 EDT, [facility], 157.48, cm, 11/04/21 11:33:00 EDT, Height, 111, kg, 03... Start Date: 11/25/21 Status: Ordered warfarin 5 mg oral tablet 0.5 tablet = 2.5 mg, By Mouth, Daily, Goal INR 2-3 Please follow up with your coumadin clinic, # 15tablet, 0 Refills, Maintenance, 06/12/21 9:27:00 EDT, Tablet, [facility], Partial fill upon patient request if the prescription is for a... Start Date: 06/12/21 Status: Ordered Problem List Condition Confirmation Course Effective Dates Status H ealth Status Informant Asthma Confirmed Active Atrial fibrillation Confirmed Active Back pain 1 Confirmed Active Major depression, chronic Confirmed Active CHF (congestive heart failure) (XSYN86-47% on echo 2019) Confirmed Active Continuous opioid [...] Name: Jose Martinez MD Address: Address: [address] [place] [address]
--- OUTSIDE RECORDS SUMMARY | 2023-08-02 08:39 | XMS_ITS | Continuity of Care Document ---
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 Refills 11, Maintenance, 07/31/19 14:19:00 EDT, [id number], [facility], cm, 07/31/19 13:53:00 EDT, Height, 1... Start Date: 07/31/19 Status: Ordered Ativan 0.5 mg oral tablet 1 tablet = 0.5 mg, By Mouth, 3 times a day, PRN anxiety, # 90 tablet, 2 Refills, Maintenance, 02/26/20 20:28:00 EST, Tablet, [facility], 160, cm, 01/26/20 9:40:00 EST, Height, [...] Refills, Maintenance, 10/03/19 13:25:00 EDT, [id number], 157, cm, 08/25/19 15:55:00 EDT, Height Start [...] 0 Refills, Maintenance, 02/07/20 16:16:00 EST, Tablet, [facility]/pharmacy #[id number], parital fill upon patient request, 160, cm, 01/26/20 9:4... Start Date: 02/07/20 Status: Ordered Dulera 100 mcg-5 mcg/inh inhalation aerosol 2 puffs, Inhalation, 2 times a day, # 1 each, 11 Refills, Maintenance, 07/31/19 14:15:00 EDT, Aerosol, [facility]/pharmacy #2339, 2 puffs Inhalation 2 times a day, 157, cm, 07/31/19 13:53:00 EDT, Height, 104, kg, 08/03/17 12:54:00 EDT, Dry Weight Start Date: 07/31/19 Status: Ordered ferrous sulfate 325 mg oral enteric coated tablet 325 mg, By Mouth, 2 times a day, # 60 tablet, Refills 1, Tot. Refills 1, Maintenance, 02/16/20 10:07:00 EST, [facility], 160, cm, 01/26/20 9:40:00 EST, Height, 104, kg, 01/19/20 3:57:00 EDT, Dry Weight Start Date: 02/16/20 Status: Ordered Lasix 40 mg oral tablet 40 mg, 1, tablet, By Mouth, Daily, # 30 tablet, Refills 0, Tot. Refills 0, Maintenance, 02/16/20 10:07:00 EST, Route to Pharmacy Electronically, [facility]/pharmacy #2339, 160, cm, 01/26/20 9:40:00 EST, Height, 104, kg, 01/19/20 3:57:00 EDT, Dry Weight Start Date: 02/16/20 Status: Ordered lisinopril 10 mg oral tablet 10 mg, 1, tablet, By Mouth, Daily, # 90 tablet, Refills 0, Tot. Refills 0, Maintenance, 02/26/20 14:41:00 EST, [facility], [facility], Partial fill upon patient request if the prescription is for a schedule II opioid drug... Start Date: 02/26/20 Status: Ordered morphine 15 mg/8 to 12 hr oral tablet, extended release 1 tablet = 15 mg, By Mouth, Every 8 hours, PRN Pain , Moderate, On substance agreement evaluated every 3 to 6 months, # 90 tablet, 0 Refills, Maintenance, 02/26/20 20:28:00 EST, [facility]/pharmacy #2339, parital fill upon patient request, 160, cm, ... Start Date: 02/26/20 Stop Date: 03/27/20 Status: Ordered morphine 30 mg/8 to 12 hr oral tablet, extended release 1 tablet = 30 mg, By Mouth, 3 times a day, OPIATE AGREEMENT evaluated every 3 to 6 months, # 84 tablet, 0 Refills, Maintenance, 02/07/20 16:16:00 EST, [facility]/pharmacy #2339, may fill for less, 160, cm, 01/26/20 9:40:00 EST, Height, 104, kg, 01/19/20 3:5... Start Date: 02/07/20 Stop Date: 03/06/20 Status: Ordered Multivitamin Daily, 0 Refills, Maintenance, 05/25/16 13:36:30 Start Date: 05/25/16 Status: Ordered Nicoderm C-Q 21 mg/24 hr transdermal film, extended release 1 patch, Topically, Daily, # 30 patch, 3 Refills, Maintenance, 08/25/19 16:23:00 EDT, Patch, [facility]/pharmacy #2339, 157, cm, 08/25/19 15:55:00 EDT, Height Start Date: 08/25/19 Status: Ordered [employer] [facility] use with inhaler [employer] [facility] use with [...] 01/22/20 9:08:00 EST, Route to Pharmacy Electronically, [facility]/pharmacy #2339, 160, cm, 01/22/20 7:53:00 EST, Height, 104, kg, 01/19/20 3:57:00 EDT, Dry Weight Start Date: 01/22/20 Stop Date: 07/20/20 Status: Ordered Ventolin HFA 108 mcg/inh inhalation aerosol with adapter 2 puffs, Inhalation, 4 times a day, PRN for wheezing, # 8 Gm, 5 Refills, Maintenance, 12/20/19 11:27:00 EDT, Aerosol, [facility]/pharmacy #2339, 156.6, cm, 10/23/19 15:34:00 EDT, Height Start Date: 12/20/19 Status: Ordered warfarin 5 mg oral tablet 1 tablet = 5 mg, By Mouth, Daily, # 30 tablet, 5 Refills, Maintenance, 02/26/20 12:12:00 EST, Tablet, [facility]/pharmacy #2339, 160, cm, 01/26/20 [...] Clinical Service Informant Atrial fibrillation Discharge Diagnosis 03/01/20 Congestive heart failure Discharge Diagnosis 03/01/20 Vital Signs Most recent to oldest [Reference Range]: 1 Height 160 cm (02/28/20 10:28 AM) Weight 103.5 kg (02/28/20 10:28 AM) Oxygen Saturation [94-100 %] 96 % (02/28/20 10:28 AM) Pulse Rate [55-90 bpm] 82 bpm (02/28/20 10:28 AM) Body Mass Index [18.5-24.99] 40.43 *>HHI* (02/28/20 10:28 AM) Blood Pressure [90-138/55-84 mm Hg] 132/ 82mm Hg (02/28/20 10:28 AM) Blood pressure sites Arm, left (02/28/20 10:28 AM) Weight Obtained Via Standing scale (02/28/20 10:28 AM) Social History Social History Type Response Smoking Status 5-9 cigarettes (betw een 1/4 to 1/2 pack)/day in last 30 days; Other: Started at 23 years old; entered on: 01/18/20 Sex
--- OUTSIDE RECORDS SUMMARY | 2023-08-02 08:39 | XMS_ITS | Continuity of Care Document ---
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 no contraindications per patient 4Admin Note: [employer] 5Admin Note: Boost[employer]/Rixensart,[place] 6Admin Note: Novaritis Medications Abilify 5 mg oral tablet 5 mg, 1, tablet, By Mouth, Daily, to be combined with the citalopram therapy, # 30 tablet, Refills 11, Tot. Refills 11, Maintenance, 07/31/19 14:19:00 EDT, [facility] 157, cm, 07/31/19 13:53:00 EDT, Height, 1... Start Date: 07/31/19 Status: Ordered amLODIPine 5 mg oral tablet 5 mg, 1, tablet, By Mouth, Daily, # 90 tablet, Refills 0, Tot. Refills 0, Maintenance, 05/19/19 14:39:00 EST, [facility] 157, cm, 04/21/19 10:26:00 EST, Height, 104, kg, 08/03/17 12:54:00 EDT, Dry Weight Start Date: 05/19/19 Stop Date: 08/17/19 Status: Ordered amLODIPine 5 mg oral tablet 1 tablet = 5 mg, By Mouth, Daily, # 90 tablet, 1 Refills, Maintenance, 10/12/19 11:34:00 EDT, [facility] 157, cm, 08/25/19 15:55:00 EDT, [...] 08/04/17 9:05:52 EDT, Route to Pharmacy Electronically, [id number], [facility] Start Date: 08/04/17 Status: Ordered Ativan 0.5 mg oral tablet 1 tablet = 0.5 mg, By Mouth, 3 times a day, PRN anxiety, # 90 tablet, 2 Refills, Maintenance, 01/11/20 13:48:00 EDT, Tablet, [facility]/pharmacy #2339, 156.6, cm, 01/09/20 11:41:00 EDT, Height, [...] Maintenance, 10/03/19 13:25:00 EDT, [id number], 157, cm, 08/25/19 15:55:00 EDT, Height Start [...] 0 Refills, Maintenance, 12/21/19 11:53:00 EDT, Tablet, [facility]/pharmacy #2339, parital fill upon [...] tablet, 0 Refills, Maintenance, 01/11/20 13:48:00 EDT, [facility]/pharmacy #2339, parital fill upon patient request, 156.6, cm, 01/08... Start Date: 01/11/20 Stop Date: 02/10/20 Status: Ordered morphine 30 mg/8 to 12 hr oral tablet, extended release 1 tablet = 30 mg, By Mouth, 3 times a day, OPIATE AGREEMENT evaluated every 3 to 6 months, # 84 tablet, 0 Refills, Maintenance, 12/21/19 11:53:00 EDT, [facility], may fill for less, [...] 0 Refills, Soft Stop, 05/10/19 16:02:00 EST, [facility]/pharmacy #2339, 157, cm, 04/21/19 10:26:00 EST, Height, 104, kg, 08/03/17 12:... Start Date: 05/10/19 Status: Ordered Nicoderm C-Q 21 mg/24 hr transdermal film, extended release 1 patch, Topically, Daily, # 30 patch, 3 Refills, Maintenance, 08/25/19 16:23:00 EDT, Patch, [facility]/pharmacy #2339, 157, cm, 08/25/19 15:55:00 EDT, Height Start Date: 08/25/19 Status: Ordered [facility] use with inhaler [facility] use with inhaler, See [...] 10/23/19 15:22:00 EDT, [facility] 156.5, cm, 10/20/19 16:01:00 EDT, Height Start Date: 10/23/19 Status: Ordered torsemide 5 mg oral tablet 1 tablet = 5 mg, By Mouth, Daily, # 30 tablet, 11 Refills, Maintenance, 10/20/19 16:34:00 EDT, [facility]/pharmacy #2339, 156.5, cm, 10/20/19 16:01:00 EDT, [...]
--- OUTSIDE RECORDS SUMMARY | 2023-08-02 08:39 | XMS_ITS | Continuity of Care Document ---
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 no contraindications per patient 4Admin Note: [employer] [facility] 5Admin Note: Boost[employer]/Rixensart,[place] 6Admin Note: Novaritis Medications Abilify 5 mg oral tablet 5 mg, 1, tablet, By Mouth, Daily, to be combined with the citalopram therapy, # 30 tablet, Refills 11, Tot. Refills 11, Maintenance, 07/31/19 14:19:00 EDT, Route to Pharmacy Electronically, [facility]/pharmacy #2339, 157, cm, 07/31/19 13:53:00 EDT, Height, 1... Start Date: 07/31/19 Status: Ordered Ativan 0.5 mg oral tablet 1 tablet = 0.5 mg, By Mouth, 3 times a day, PRN anxiety, # 90 tablet, 2 Refills, Maintenance, 02/26/20 20:28:00 EST, Tablet, [facility], cm, 01/26/20 9:40:00 EST, Height, 104, kg, 01/19/20 3:57:00 EDT, Dry Weight Start Date: 02/26/20 Status: Ordered atorvastatin 40 mg oral tablet 1 tablet = 40 mg, By Mouth, Daily, # 90 tablet, 1 Refills, Maintenance, 11/16/19 10:37:00 EDT, Tablet, [facility]/pharmacy #2339, 156.6, cm, 10/23/19 15:34:00 EDT, Height, Dry Weight Start Date: 11/16/19 Status: Ordered citalopram 40 mg oral tablet 1 tablet, By Mouth, Daily, # 90 tablet, 1 Refills, Maintenance, 04/04/20 11:03:00 EST, [facility]/pharmacy#2339, 162.5, cm, 04/03/20 11:38:00 EST, Height, 108, [...] 0 Refills, Maintenance, 04/30/20 17:05:00 EST, Tablet, [facility]/pharmacy #2339, parital fill upon patient request, 162.5, cm, 04/10/20 1... Start Date: 04/30/20 Status: Ordered Dulera 100 mcg-5 mcg/inh inhalation aerosol 2 puffs, Inhalation, 2 times a day, # 1 each, 11 Refills, Maintenance, 07/31/19 14:15:00 EDT, Aerosol, [facility]/pharmacy #2339, 2 puffs Inhalation 2 times a day, 157, cm, 07/31/19 13:53:00 EDT, Height, 104, kg, 08/03/17 12:54:00 EDT, Dry Weight Start Date: 07/31/19 Status: Ordered ferrous sulfate 325 mg oral enteric coated tablet 325 mg, By Mouth, 2 times a day, # 60 tablet, Refills 5, Tot. Refills 5, Maintenance, 04/17/20 10:12:00 EST, Route to Pharmacy Electronically, [facility]/pharmacy #2339, 162.5, cm, 04/10/20 11:20:00 EST, Height, 103, kg, 04/10/20 11:20:00 EST, Dry Weight Start Date: 04/17/20 Status: Ordered Lasix 40 mg oral tablet 40 mg, 1, tablet, By Mouth, Daily, # 30 tablet, Refills 5, Tot. Refills 5, Maintenance, 03/11/20 13:11:00 EST, Route to Pharmacy Electronically, [facility]/pharmacy #2339, 160, cm, 02/28/20 10:28:00 EST, Height, 104, kg, 01/19/20 3:57:00 EDT, Dry Weight Start Date: 03/11/20 Status: Ordered lisinopril 10 mg oral tablet 10 mg, 1, tablet, By Mouth, Daily, # 90 tablet, Refills 0, Tot. Refills 0, Maintenance, 02/26/20 14:41:00 EST, [facility] Partial fill upon [...] tablet, 0 Refills, Maintenance, 04/30/20 17:05:00 EST, [facility]/pharmacy #2339, parital fill upon patient request, 162.5, cm, 04/10... Start Date: 04/30/20 Stop Date: 05/30/20 Status: Ordered morphine 30 mg/8 to 12 hr oral tablet, extended release 1 tablet = 30 mg, By Mouth, 3 times a day, OPIATE AGREEMENT evaluated every 3 to 6 months, # 84 tablet, 0 Refills, Maintenance, 04/30/20 17:05:00 EST, [facility]/pharmacy #2339, may fill for less, 162.5, cm, 04/10/20 11:20:00 EST, Height, 103, kg, 04/10/20... Start Date: 04/30/20 Stop Date: 05/28/20 Status: Ordered Multivitamin Daily, 0 Refills, Maintenance, 05/25/16 13:36:30 Start Date: 05/25/16 Status: Ordered Nicoderm C-Q 21 mg/24 hr transdermal film, extended release 1 patch, Topically, Daily, # 30 patch, 3 Refills, Maintenance, 08/25/19 16:23:00 EDT, Patch, [facility]/pharmacy #2339, 157, cm, 08/25/19 15:55:00 EDT, Height Start Date: 08/25/19 Status: Ordered [employer] [facility] use with inhaler [facility] use with inhaler, See Instructions, [...] 01/22/20 9:08:00 EST, Route to Pharmacy Electronically, [facility]/pharmacy #2339, 160, cm, 01/22/20 7:53:00 EST, Height, 104, kg, 01/19/20 3:57:00 EDT, Dry Weight Start Date: 01/22/20 Stop Date: 07/20/20 Status: Ordered Ventolin HFA 108 mcg/inh inhalation aerosol with adapter 2 puffs, Inhalation, 4 times a day, PRN for wheezing, # 8 Gm, 5 Refills, Maintenance, 12/20/19 11:27:00 EDT, Aerosol, [facility]/pharmacy #2339, 156.6, cm, 10/23/19 15:34:00 EDT, Height Start Date: 12/20/19 Status: Ordered warfarin 5 mg oral tablet 0.5 tablet = 2.5 mg, By Mouth, Daily at bedtime, 5mg tablet on Fridays, # 30 tablet, 5 Refills, Maintenance, 02/26/20 12:12:00 EST, Tablet, [facility]/pharmacy #2339, 160, cm, 01/26/20 9:40:00 EST, [...]
--- OUTSIDE RECORDS SUMMARY | 2023-08-02 08:39 | XMS_ITS | Continuity of Care Document ---
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 no contraindications per patient 5Admin Note: [employer] [facility] 6Admin Note: [employer]ixensart,[place] 7Admin Note: Novaritis Medications Albuterol (Eqv-ProAir HFA) [...] 08/06/21 9:00:00 EDT, Route to Pharmacy Electronically, [facility]/pharmacy #2339, 157.48, cm, 0... Start Date: 08/06/21 Stop Date: 08/01/22 Status: Ordered aspirin 81 mg oral delayed release tablet 81 mg, By Mouth, Daily, # 30 tablet, Refills 11, Tot. Refills 11, Maintenance, 06/12/21 9:27:00 EDT, Route to Pharmacy Electronically, [facility], Partial fill upon patient request if the prescription is for a schedule II opioid drug., 1... Start Date: 06/12/21 Stop Date: 06/07/22 Status: Ordered Ativan 0.5 mg oral tablet 1 tablet = 0.5 mg, By Mouth, Daily at bedtime, PRN as needed for anxiety, # 30 tablet, 1 Refills, Maintenance, 11/25/21 15:15:00 EDT, Tablet, [facility]/pharmacy #2339, [...] EVERY DAY, # 90 tablet, 1 Refills, [id number], 90, TAKE 1 TABLET BY MOUTH EVERY [...] a day, # 60 tablet, 11 Refills, [facility], 30, TAKE 1 TABLET BY MOUTH TWICE [...] 08/06/21 9:01:00 EDT, Route to Pharmacy Electronically, [facility]/pharmacy #2339, 157.48, cm, 08/05/21 14:31:00 EDT, Height, 111,... Start Date: 08/06/21 Stop Date: 08/01/22 Status: Ordered furosemide 20 mg oral tablet 1, tablet, By Mouth, Daily, # 30 tablet, Refills 5, Maintenance, 12/30/21 15:04:00 EDT, Route to Pharmacy Electronically, [facility] 27166, 157.48, cm, 11/04/21 11:33:00 EDT, Height, 111, kg, 06/10/2214:06:00 EDT, Dry Weight Start Date: 12/30/21 Status: Ordered Lipitor 80 mg oral tablet 1 tablet = 80 mg, By Mouth, Daily at bedtime, # 30 tablet, 11 Refills, Maintenance, 06/12/21 9:27:00 EDT, Tablet, [facility], Partial fill upon patient request if the prescription is for a schedule II opioid drug., 157.48, cm, 06/10/21 1... Start Date: 06/12/21 Status: Ordered metoprolol 100 mg oral tablet, extended release 100 mg, 1, tablet, By Mouth, Daily, # 90 tablet, Refills 3, Tot. Refills 3, Maintenance, 09/11/21 12:08:00 EDT, Route to Pharmacy Electronically, [facility]/pharmacy #2339, 157.48, cm, 08/12/21 10:44:00 EDT, Height, [...] tablet, 0 Refills, Maintenance, 08/19/21 14:03:00 EDT, [facility]/pharmacy #2339, parital [...] tablet, 0 Refills, Maintenance, 11/25/21 15:15:00 EDT, [facility]/pharmacy #2339, parital [...] tablet, 1 Refills, Maintenance, 11/25/21 12:04:00 EDT, [facility] [address], 157.48, cm, 11/04/21 11:33:00 EDT, Height, 111, kg, 03... Start Date: 11/25/21 Status: Ordered warfarin 5 mg oral tablet 0.5 tablet = 2.5 mg, By Mouth, Daily, Goal INR 2-3 Please follow up with your coumadin clinic, # [id number], 0 Refills, Maintenance, 06/12/21 9:27:00 EDT, Tablet, [facility], Partial fill upon patient request if the prescription is for a... Start Date: 06/12/21 Status: Ordered Problem List Condition Confirmation Course Effective Dates Status H ealth Status Informant Asthma Confirmed Active Atrial fibrillation Confirmed Active Back pain 1 Confirmed Active Major depression, chronic Confirmed Active CHF (congestive heart failure) ([id number]% on echo 2019) Confirmed Active Continuous opioid [...] Name: Jose Martinez MD Address: Address: [address] [place], [place] [address]
--- OUTSIDE RECORDS SUMMARY | 2023-08-02 08:39 | XMS_ITS | Continuity of Care Document ---
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 Refills 1, Maintenance, 09/02/18 11:06:29 EDT, Route to Pharmacy Electronically, [id number], [id number] Start Date: 09/02/18 Stop Date: [...] 08/04/17 9:05:52 EDT, Route to Pharmacy Electronically, [id number], [facility] Start Date: 08/04/17 Status: Ordered Ativan 0.5 mg oral tablet 1 tablet = 0.5 mg, By Mouth, 3 times a day, PRN anxiety, # 90 tablet, 2 Refills, Maintenance, 03/20/19 16:41:00 EST, Tablet, [facility]/pharmacy #2339, 157, cm, 01/13/19 9:10:00 EDT, Height, 104, kg, 08/03/17 12:54:00 EDT, Dry Weight Start Date: 03/20/19 Status: Ordered atorvastatin 40 mg oral tablet 1 tablet = 40 mg, By Mouth, Daily, # 30 tablet, 5 Refills, Maintenance, 03/20/19 15:53:00 EST, Tablet, [facility]/pharmacy #2339, 157, cm, 01/13/19 9:10:00 EDT, Height, 104, kg, 08/03/17 12:54:00 EDT, Dry Weight Start Date: 03/20/19 Status: Ordered CeleXA 40 mg oral tablet 1, tablet, By Mouth, Daily, # 90 tablet, Refills 1, Tot. Refills 1, Maintenance, 03/20/19 16:10:00 EST, Route to Pharmacy Electronically, [facility]/pharmacy #2339, 157, cm, 01/13/19 9:10:00 [...] 05/25/16 13:36:30 Start Date: 05/25/16 Status: Ordered [email or web address] [facility] use with inhaler [facility] use with inhaler, See Instructions, # 1 [...] 14:55:12 EDT, Aerosol, Route to Pharmacy Electronically, [id number], [facility]/pharmacy #2339 Start Date: 10/28/18 Status: [...]
--- OUTSIDE RECORDS SUMMARY | 2023-08-02 08:39 | XMS_ITS | Continuity of Care Document ---
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 Name Role Phone Jose Martinez MD Primary Care Physician Encounter [facility] [place] Date(s): 07/01/21 - 07/08/21 [facility] [address] [place] [address]- Encounter Diagnosis Atrial fibrillation(Discharge Diagnosis) - 07/01/21 Hyperlipidemia(Discharge Diagnosis) - 07/01/21 Hypertension(Discharge Diagnosis) - 07/01/21 Severe obesity(Discharge Diagnosis) - 07/01/21 Chronic CHF(Discharge Diagnosis) - 07/01/21 Cardiomyopathy(Discharge Diagnosis) - 07/01/21 Coronary artery disease(Discharge Diagnosis) - 07/01/21 Attending Physician: Ruth Kiser MD Allergies, Adverse [...] H1N1, inactive(oldterm) 7 01/21/09 Given 1Result Comment: [facility]:[id number] 2Result Comment: [01/19/2018] [id number] 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 [facility] 6Admin Note: [employer]Rixensart,[place] 7Admin Note: Novaritis Medications ARIPiprazole 5 mg oral tablet 1, tablet, By Mouth, Daily, TO BE COMBINED WITH THE CITALOPRAM THERAPY, # 90 tablet, Refills 0, Route to Pharmacy Electronically, [facility], 160, cm, 06/02/21 13:26:00 EDT, Height, 103, kg, 04/10/20 11:20:00 EST, Dry Weight Start Date: 06/03/21 Status: Ordered aspirin 81 mg oral delayed release tablet 81 mg, By Mouth, Daily, # 30 tablet, Refills 11, Tot. Refills 11, Maintenance, 06/12/21 9:27:00 EDT, Route to Pharmacy Electronically, [facility], Partial fill upon patient request [...] Mouth, Daily, # 90 tablet, 1 Refills, [facility] STORE 88819, 162.5, cm, 01/29/21 12:38:00 EST, Height, 103, kg, 04/10/20 11:20:00 EST, Dry Weight Start Date: 04/07/21 Status: Ordered Dulera 100 mcg-5 mcg/inh inhalation aerosol 2 puffs, Inhalation, 2 times a day, # 1 each, 11 Refills, 06/02/21 14:01:00 EDT, [facility]/pharmacy #2339, 2 puffs Inhalation 2 times a day, 160, cm, 06/02/21 13:26:00 EDT, Height, 103, kg, 04/10/20 11:20:00 EST, Dry Weight Start Date: 06/02/21 Status: Ordered ferrous sulfate 325 mg oral enteric coated tablet 1, tablet, By Mouth, 2 times a day, # 180 tablet, Refills 1, Route to Pharmacy Electronically, [facility] STORE 72793, 162.5, cm, 01/29/21 12:38:00 EST, Height, 103, [...] of lasix that day and call your ground transportation operator's office for a... Start Date: 06/12/21 [...] 07/03/21 14:52:00 EDT, Route to Pharmacy Electronically, [facility]/pharmacy #2339, Partial fill upon patient requestif the prescription is for a schedule II opioid kal... Start Date: 07/03/21 Status: Ordered Metoprolol Succinate ER 25 mg oral tablet, extended release 1 tablet, By Mouth, Daily, # 30 tablet, 1 Refills, Maintenance, 06/12/21 9:27:00 EDT, [facility] 3, 157.48, cm, 06/10/21 17:04:00 EDT, Height, 111, kg, 06/10/21 15:06:00 EDT, Dry Weight Start Date: 06/12/21 Status: Ordered morphine 15 mg/8 to 12 hr oral tablet, extended release 1 tablet = 15 mg, By Mouth, Every 8 hours, PRN Pain , Moderate, On substance agreement evaluated every 3 to 6 months, # 84 tablet, 0 Refills, Maintenance, 06/25/21 16:52:00 EDT, [facility]/pharmacy #2339, parital fill [...] 5 Refills, Maintenance, 06/09/21 15:31:00 EDT, Tablet, [facility]/pharmacy #2339, Partial fill [...] 15tablet, 0 Refills, Maintenance, 06/12/21 9:27:00 EDT, [place], [facility], Partial fill upon patient request if the prescription is for a... Start Date: 06/12/21 Status: Ordered Problem List Condition Effective Dates Status Health Status Inform ant Asthma(Confirmed) Active Atrial fibrillation(Confirmed) Active Back pain(Confirmed) 1 Active Major depression, chronic(Confirmed) Active CHF (congestive heart failur e) (MPZY84-95% on echo 2019)(Confirmed) Active Continuous opioid dependence(Confirmed) [...] Clinical Service Informant Atrial fibrillation Discharge Diagnosis 07/01/21 Hyperlipidemia Discharge Diagnosis 07/01/21 Hypertension Discharge Diagnosis 07/01/21 Severe obesity Discharge Diagnosis 07/01/21 Chronic CHF Discharge Diagnosis 07/01/21 Cardiomyopathy Discharge Diagnosis 07/01/21 Coronary artery disease Discharge Diagnosis 07/01/21 Vital Signs Most recent to oldest [Reference Range]: 1 Height 157.48 cm (07/01/21 11:10 AM) Weight 112.4 kg (07/01/21 11:10 AM) Oxygen Saturation [94-100 %] 97 % (07/01/21 11:10 AM) Pulse Rate [55-90 bpm] 74 bpm (07/01/21 11:10 AM) Body Mass Index [18.5-24.99] 45.32 *>HHI* (07/01/21 11:10 AM) Blood Pressure [90-138/55-84 mm Hg] 112/ 71mm Hg (07/01/21 11:10 AM) Temperature [96.8-100.4 DegF] 97.8 DegF (07/01/21 11:10 AM) Blood pressure sites Arm, left (07/01/21 11:10 AM) Temperature Route Oral (07/01/21 11:10 AM) Social History Social History Type Response Smoking Status 5-9 cigarettes (betw een 1/4 to 1/2 pack)/day in last 30 days; Other: Started at 23 years old; entered on: 01/18/20 Sex
--- OUTSIDE RECORDS SUMMARY | 2023-08-02 08:39 | XMS_ITS | Continuity of Care Document ---
Author Organization [facility] Address [address] [place] [address]- Care Team Providers Care Manager Organizational Name Role Phone Jose Martinez MD Primary Care Physician Encounter [facility] [place] Date(s): 07/31/19 - 08/07/19 [facility] [address] [place] [address]- [facility] Encounter Diagnosis Asthma(Discharge Diagnosis) - 07/31/19 Major depression, chronic(Discharge Diagnosis) - 07/31/19 Attending Physician: Jose Martinez MD Allergies, Adverse [...] inactive(oldterm) 6 01/21/09 Given 1Result Comment: [01/19/2018] [id number] 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 Refills 11, Maintenance, 07/31/19 14:19:00 EDT, [facility], cm, 07/31/19 13:53:00 EDT, Height, 1... Start Date: 07/31/19 Status: Ordered amLODIPine 5 mg oral tablet 5 mg, 1, tablet, By Mouth, Daily, # 90 tablet, Refills 0, Tot. Refills 0, Maintenance, 05/19/19 14:39:00 EST, [facility], 157, cm, 04/21/19 10:26:00 EST, Height, 104, kg, 08/03/17 12:54:00 EDT, Dry Weight Start Date: 05/19/19 Stop Date: 08/17/19 Status: Ordered amLODIPine 5 mg oral tablet 1 tablet = 5 mg, By Mouth, Daily, # 90 tablet, 0 Refills, Maintenance, 07/25/19 9:54:00 EDT, [facility] 157, cm, 04/21/19 10:26:00 EST, Height, 104, kg, 08/03/17 12:54:00 EDT, Dry Weight Start Date: 07/25/19 Status: Ordered amoxicillin 500 mg oral capsule 4 capsule = 2,000 mg, By Mouth, call center specialist to Procedure, 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 Refills 0, Maintenance, 08/04/17 9:05:52 EDT, Route to Pharmacy Electronically, [id number], [facility] 3 Start Date: 08/04/17 Status: Ordered Ativan 0.5 mg oral tablet 1 tablet = 0.5 mg, By Mouth, 3 times a day, PRN anxiety, # 90 tablet, 2 Refills, Maintenance, 07/24/19 17:04:00 EDT, Tablet, [facility]/pharmacy #2339, 157, cm, 04/21/19 10:26:00 EST, Height, 104, kg, 08/03/17 12:54:00 EDT, Dry Weight Start Date: 07/24/19 Status: Ordered atorvastatin 40 mg oral tablet 1 tablet = 40 mg, By Mouth, Daily, # 30 tablet, 5 Refills, Maintenance, 03/20/19 15:53:00 EST, Tablet, [facility]/pharmacy #2339, 157, cm, 01/13/19 9:10:00 EDT, Height, 104, kg, 08/03/17 12:54:00 EDT, Dry Weight Start Date: 03/20/19 Status: Ordered CeleXA 40 mg oral tablet 1, tablet, By Mouth, Daily, # 90 tablet, Refills 1, Tot. Refills 1, Maintenance, 03/20/19 16:10:00 EST, Route to Pharmacy Electronically, [facility]/pharmacy #2339, 157, cm, 01/13/19 9:10:00 EDT, [...] 0 Refills, Maintenance, 07/13/19 10:04:00 EDT, Tablet, [facility]/pharmacy #2339, parital fill upon patient request, 157, cm, 04/21/19 10:... Start Date: 07/13/19 Status: Ordered Dulera 100 mcg-5 mcg/inh inhalation aerosol 2 puffs, Inhalation, 2 times a day, # 1 each, 11 Refills, Maintenance, 07/31/19 14:15:00 EDT, Aerosol, [facility]/pharmacy #2339, 2 puffs Inhalation 2 [...] 0 Refills, Soft Stop, 05/10/19 16:02:00 EST, [facility]/pharmacy #2339, 157, cm, 04/21/19 10:26:00 EST, Height, 104, kg, 08/03/17 12:... Start Date: 05/10/19 Status: Ordered [facility] use with inhaler [facility] [...] 14:55:12 EDT, Aerosol, Route to Pharmacy Electronically, [id number], [facility]/pharmacy #2339 Start Date: 10/28/18 Status: Ordered [...] Dates Health Status Cl inical Service Informant Asthma Discharge Diagnosis 07/31/19 Major depression, chronic Discharge Diagnosis 07/31/19 Vital Signs Most recent to oldest [Reference Range]: 1 Height 157.00 cm (07/31/19 1:53 PM) Social History Social History Type Response Smoking Status Former smoker; Type: Cigarettes; Other: Quit 12/03/14; entered on: 12/10/14 Sex
--- OUTSIDE RECORDS SUMMARY | 2023-08-02 08:39 | XMS_ITS | Continuity of Care Document ---
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 Start Date: 06/12/21 Stop Date: 06/07/22 Status: Ordered Ativan 0.5 mg oral tablet 1 tablet = 0.5 mg, By Mouth, Daily at bedtime, PRN as needed for anxiety, # 30 tablet, 3 Refills, Maintenance, 01/15/22 13:14:00 EDT, Tablet, [facility]/pharmacy #2339, Partial fill upon patient request if the prescription is for a schedule II opioid drug.,... Start Date: 01/15/22 Status: Ordered citalopram 40 mg oral tablet 1 tablet, By Mouth, Daily, for 90 days, # 90 tablet, 3 Refills, Physician Stop 08/01/22 9:01:00 EDT, 08/06/21 9:01:00 EDT, [facility]/pharmacy #2339, 157.48, [...] EVERY DAY, # 90 tablet, 1 Refills, [facility] 66859, 90, TAKE 1 TABLET BY MOUTH EVERY DAY, 157.48, cm, 08/12/21 10:44:00 EDT, Height, 111, kg, 06/10/21 15:06:00 EDT, Dry Weight Start Date: 10/31/21 Status: Ordered Dulera 100 mcg-5 mcg/inh inhalation aerosol 2 puffs, Inhalation, 2 times a day, # 1 each, 11 Refills, 06/02/21 14:01:00 EDT, [facility]/pharmacy #2339, 2 puffs Inhalation 2 times a day, 160, cm, 06/02/21 13:26:00 EDT, Height, 103, kg, 04/10/20 11:20:00 EST, Dry Weight Start Date: 06/02/21 Status: Ordered Entresto 24 mg-26 mg oral tablet 1 tablet, By Mouth, 2 times a day, # 60 tablet, 11 Refills, [facility] 78211, 30, TAKE 1 TABLET BY MOUTH TWICE [...] 12/30/21 15:04:00 EDT, Route to Pharmacy Electronically, [facility] 32308, 157.48, cm, 11/04/21 11:33:00 EDT, Height, 111, kg, 06/10/2214:06:00 EDT, Dry Weight Start Date: 12/30/21 Status: Ordered Lipitor 80 mg oral tablet 1 tablet = 80 mg, By Mouth, Daily at bedtime, # 30 tablet, 11 Refills, Maintenance, 06/12/21 9:27:00 EDT, Tablet, [facility], Partial fill upon patient request if the prescription is for a schedule II opioid drug., 157.48, cm, 06/10/21 1... Start Date: 06/12/21 Status: Ordered metoprolol 100 mg oral tablet, extended release 150 mg, 1.5, tablet, By Mouth, Daily, # 45 tablet, Refills 6, Tot. Refills 6, Maintenance, 01/20/2214:50:00 EDT, Route to Pharmacy Electronically, [facility]/pharmacy #2339, Partial [...] tablet, 0 Refills, Maintenance, 08/19/21 14:03:00 EDT, [facility]/pharmacy #2339, parital [...] tablet, 0 Refills, Maintenance, 11/25/21 15:15:00 EDT, [facility]/pharmacy #2339, parital [...] tablet, 1 Refills, Maintenance, 11/25/21 12:04:00 EDT, [facility] STORE 10787, 157.48, cm, 11/04/21 11:33:00 EDT, Height, 111, kg, 03... Start Date: 11/25/21 Status: Ordered warfarin 5 mg oral tablet 0.5 tablet = 2.5 mg, By Mouth, Daily, Goal INR 2-3 Please follow up with your coumadin clinic, # 15tablet, 0 Refills, Maintenance, 06/12/21 9:27:00 EDT, Tablet, [facility], Partial fill upon patient request if the prescription is for a... Start Date: 06/12/21 Status: Ordered Problem List Condition Confirmation Course Effective Dates Status H ealth Status Informant Asthma Confirmed Active Atrial fibrillation Confirmed Active Back pain 1 Confirmed Active Major depression, chronic Confirmed Active CHF (congestive heart failure) (YXWT45-17% on echo 2019) Confirmed Active Continuous opioid [...] Name: Jose Martinez MD Address: Address: [address] [place], [place] [address]
--- OUTSIDE RECORDS SUMMARY | 2023-08-02 08:39 | XMS_ITS | Continuity of Care Document ---
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 no contraindications per patient 5Admin Note: [employer] [facility] 6Admin Note: [employer]ens[employer],[place] 7Admin Note: Novaritis Medications Albuterol (Eqv-ProAir HFA) 2 puffs, Inhalation, Every 6 hours, 0 Refills, Maintenance, 10/13/21 13:54:00 EDT, Partial fill upon patient request if the prescription is for a schedule II opioid drug. Start Date: 10/13/21 Status: Ordered amLODIPine 10 mg oral tablet 1 tablet, By Mouth, Daily, # 90 tablet, 3 Refills, Maintenance, 02/23/22 8:50:00 EST, [facility] 76275, 157.48, cm, 01/20/22 14:40:00 EDT, Height, 111, kg, 06/10/21 15:06:00 EDT, Dry Weight Start Date: 02/23/22 Status: Ordered ARIPiprazole 5 mg oral tablet 1, tablet, By Mouth, Daily, X90 DAYS,INSTR:TO BE COMBINED WITH THE CITALOPRAM THERAPY, # 90 tablet,Refills 1, Maintenance, 07/26/22 7:25:00 EDT, Route to Pharmacy Electronically, [facility] 19693, 157.48, cm, 05/18/22 9:48:00 EST, Height, 111, kg, 03/... Start Date: 07/26/22 Status: Ordered aspirin 81 mg oral delayed release tablet 81 mg, By Mouth, Daily, # 30 tablet, Refills 11, Tot. Refills 11, Maintenance, 06/12/21 9:27:00 EDT, Route to Pharmacy Electronically, [facility], Partial fill upon patient request if the prescription is for a schedule II opioid drug., 1... Start Date: 06/12/21 Stop Date: 06/07/22 Status: Ordered Ativan 0.5 mg oral tablet 1 tablet = 0.5 mg, By Mouth, Daily at bedtime, PRN as needed for anxiety, # 30 tablet, 5 Refills, Maintenance, 10/27/22 13:20:00 EDT, Tablet, [facility]/pharmacy #2339, Partial fill upon patient request if the prescription is for a schedule II opioid drug.,... Start Date: 10/27/22 Status: Ordered atorvastatin 80 mg oral tablet 1 tablet, By Mouth, Daily at bedtime, # 90 tablet, 1 Refills, Maintenance, 10/12/22 12:22:00 EDT, [facility], 157.48, cm, 08/28/22 9:39:00 EDT, Height, 111, kg, 06/10/21 15:06:00 EDT, Dry Weight Start Date: 10/12/22 Status: Ordered citalopram 40 mg oral tablet 1 tablet, By Mouth, Daily, # 90 tablet, 1 Refills, Maintenance, 11/25/22 22:48:00 EDT, [facility] 28[facility], 157.48, cm, 11/17/22 16:49:00 EDT, Height, 111, [...] # 90 tablet, 1 Refills, [facility], 90, TAKE 1 TABLET BY MOUTH EVERY [...] each, 11 Refills, Maintenance, 07/08/22 11:55:00 EDT, [facility]4664, 30, INHALE 2 PUFFS TWICE A DAY, 157.48, cm, 05/18/22 9:48:00 EST, Height, 111, kg, 06/10/21 15:06:00 EDT, Dry Weight Start Date: 07/08/22 Status: Ordered Entresto 24 mg-26 mg oral tablet 1 tablet, By Mouth, 2 times a day, # 60 tablet, 11 Refills, Maintenance, 09/21/22 14:36:00 EDT, [facility], 30, TAKE 1 TABLET BY MOUTH TWICE A DAY, 157.48, cm, 08/28/22 9:39:00 EDT, Height, 111,kg, 06/10/21 15:06:00 EDT, Dry Weight Start Date: 09/21/22 Status: Ordered Entresto 24 mg-26 mg oral tablet 1 tablet, By Mouth, 2 times a day, # 60 tablet, 11 Refills, [facility], 30, TAKE 1 TABLET BY MOUTH TWICE A DAY, 157.48, cm, 08/12/21 10:44:00 EDT, Height, 111, kg, 06/10/21 15:06:00 EDT, Dry Weight Start Date: 09/18/21 Status: Ordered ferrous sulfate 325 mg oral enteric coated tablet 1, tablet, By Mouth, 2 times a day, # 180 tablet, Refills 1, Maintenance, 07/26/22 7:26:00 EDT, Route to Pharmacy Electronically, [facility], 157.48, cm, 05/18/22 9:48:00 EST, Height, 111, kg, 06/10/21 15:06:00 EDT, Dry Weight Start Date: 07/26/22 Status: Ordered furosemide 20 mg oral tablet 1, tablet, By Mouth, Daily, # 90 tablet, Refills 1, Maintenance, 07/02/22 8:00:00 EDT, Route to Pharmacy Electronically, [facility] 22843, 157.48, cm, 05/18/22 9:48:00 EST, Height, 111, kg, 06/10/21 15:06:00 EDT, Dry Weight Start Date: 07/02/22 Status: Ordered furosemide 20 mg oral tablet 1, tablet, By Mouth, Daily, # 30 tablet, Refills 5, Maintenance, 12/30/21 15:04:00 EDT, Route to Pharmacy Electronically, [facility] 96695, 157.48, cm, 11/04/21 11:33:00 EDT, Height, 111, kg, 06/10/2214:06:00 EDT, Dry Weight Start Date: 12/30/21 Status: Ordered Metoprolol Succinate ER 100 mg oral tablet, extended release 1.5 tablet = 150 mg, By Mouth, Daily, # 135 tablet, 3 Refills, Maintenance, 10/12/22 15:26:00 EDT, XL Tablet, [facility]/pharmacy #2339, [...] tablet, 0 Refills, Maintenance, 11/25/22 22:49:00 EDT, [facility] 75117, 157.48, cm, 11/17/22 16:49:00 EDT, Height, 111, kg, 0... Start Date: 11/25/22 Status: Ordered spironolactone 25 mg oral tablet 0.5, tablet, By Mouth, Daily, # 45 tablet, Refills 1, Maintenance, 05/21/22 10:15:00 EST, Route to Pharmacy Electronically, [facility] 77374, 157.48, cm, 05/18/22 9:48:00 EST, Height, 111, kg, 06/10/21 15:06:00 EDT, Dry Weight Start Date: 05/21/22 Status: Ordered warfarin 5 mg oral tablet See Instructions, Take 1/2 to 1 tablet By Mouth Daily as directed by coumadin clinic, # 90 tablet, 2 Refills, Maintenance, 05/12/22 13:52:00 EST, Tablet, [facility], Partial fill upon patientrequest if the prescription is for a schedule II... Start Date: 05/12/22 Status: Ordered Problem List Condition Confirmation Course Effective Dates Status H ealth Status Informant Asthma Confirmed Active Atrial fibrillation Confirmed Active Back pain 1 Confirmed Active Cardiomyopathy Confirmed Active Major depression, chronic Confirmed Active CHF (congestive heart failure) (BWTU55-16% on echo 2019) Confirmed Active Coronary artery [...] Care Team Personnel Name: Radha Villela Position: [facility] RN Chris Member Role: Primary Care Nurse Name: Nichole Coates RN Position: [facility] RN Member Role: Primary Care Nurse Name: Ksenia Herzog RN Position: [facility] RN Member Role: Primary Care Nurse Name: Leatha Walsh RN Position: [facility] RN Member Role: Primary Care Nurse Name: Milagro Sims RN Position: [facility] RN Member Role: Primary Care Nurse Name: Jo Ann Stubbs PharmD Position: [facility] Associate Professional Member Role: [employer] Provider Address: Address: [address] [place] [address] [place] [address]- Name: Anne Gonzalez RN Position: [facility] RN Member Role: Primary Care Nurse Name: Mckayla Wilcox RN Position: [facility] RN Member Role: Primary Care Nurse Name: Simin Chen RN Position: [facility] RN Member Role: Primary Care Nurse Name: Jose Martinez MD Position: [facility] Physician - Primary Care Member Role: PCP Address: Address: [address] [place], [place] [address] Name: Aleks Merchant RN Position: [facility] RN Member Role: Primary Care Nurse Name: Genet Bowman RN Position: [facility] SN RN Member Role: Primary Care Nurse Name: Ilana Burns RN Position: [facility] RN Member Role: Primary Care Nurse Care Team Related Persons Name: TUTU ROWLAND Address: home [address] [place] [address] Name: JANET CONNOR Address: home [address] [place] [address]
--- OUTSIDE RECORDS SUMMARY | 2023-08-02 08:39 | XMS_ITS | Continuity of Care Document ---
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 Start Date: 06/12/21 Stop Date: 06/07/22 Status: Ordered Ativan 0.5 mg oral tablet 1 tablet = 0.5 mg, By Mouth, Daily at bedtime, PRN as needed for anxiety, # 30 tablet, 1 Refills, Maintenance, 11/25/21 15:15:00 EDT, Tablet, [id number], Partial fill upon [...] Refills, [facility] STORE 70319, 90, TAKE 1 TABLET BY MOUTH EVERY [...] Refills, [facility] STORE [id number], 30, TAKE 1 TABLET BY MOUTH TWICE [...] 08/06/21 9:01:00 EDT, [id number] 157.[facility], cm, 08/05/21 14:31:00 EDT, Height, 111,... Start Date: 08/06/21 Stop Date: 08/01/22 Status: Ordered furosemide 20 mg oral tablet 1, tablet, By Mouth, Daily, # 30 tablet, Refills 1, Maintenance, 12/02/21 12:39:00 EDT, Route to Pharmacy Electronically, [facility] STORE [id number], 157.48, cm, 11/04/21 11:33:00 EDT, Height, 111, kg, 06/10/2214:06:00 EDT, Dry Weight Start Date: 12/02/21 Status: Ordered Lipitor 80 mg oral tablet 1 tablet = 80 mg, By Mouth, Daily at bedtime, # 30 tablet, 11 Refills, Maintenance, 06/12/21 9:27:00 EDT, Tablet, [facility], Partial fill upon patient request if the prescription is for a schedule II opioid drug., 157.48, cm, 06/10/21 1... Start Date: 06/12/21 Status: Ordered metoprolol 100 mg oral tablet, extended release 100 mg, 1, tablet, By Mouth, Daily, # 90 tablet, Refills 3, Tot. Refills 3, Maintenance, 09/11/21 12:08:00 EDT, Route to Pharmacy Electronically, [facility][id number], 157.48, cm, 08/12/21 10:44:00 EDT, [...] Refills, Maintenance, 11/25/21 12:04:00 EDT, [id number], 157.48, cm, 11/04/21 11:33:00 EDT, Height, 111, kg, 03... Start Date: 11/25/21 Status: Ordered warfarin 5 mg oral tablet 0.5 tablet = 2.5 mg, By Mouth, Daily, Goal INR 2-3 Please follow up with your coumadin clinic, # 15tablet, 0 Refills, Maintenance, 06/12/21 9:27:00 EDT, Tablet, [facility], Partial fill upon patient request if the prescription is for a... Start Date: 06/12/21 Status: Ordered Problem List Condition Effective Dates Status Health Status Inform ant Asthma(Confirmed) Active Atrial fibrillation(Confirmed) Active Back pain(Confirmed) 1 Active Major depression, chronic(Confirmed) Active CHF (congestive heart failur e) (EADN43-45% on echo 2019)(Confirmed) Active Continuous opioid dependence(Confirmed) [...] Personnel Name: Jose Martinez MD Address: [address] [place] [address]-
--- OUTSIDE RECORDS SUMMARY | 2023-08-02 08:40 | XMS_ITS | Continuity of Care Document ---
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 Refills 11, Maintenance, 07/31/19 14:19:00 EDT, Route to Pharmacy Electronically, [id number], 157, cm, 07/31/19 13:53:00 EDT, Height, 1... Start Date: 07/31/19 Status: Ordered Ativan 0.5 mg oral tablet 1 tablet = 0.5 mg, By Mouth, 3 times a day, PRN anxiety, # 90 tablet, 2 Refills, Maintenance, 02/26/20 20:28:00 EST, Tablet, [facility]2339, 160, cm, 01/26/20 9:40:00 EST, Height, 104, kg, 01/19/20 3:57:00 EDT, Dry Weight Start Date: 02/26/20 Status: Ordered atorvastatin 40 mg oral tablet 1 tablet = 40 mg, By Mouth, Daily, # 90 tablet, 1 Refills, Maintenance, 11/16/19 10:37:00 EDT, Tablet, [facility]2339, 156.6, cm, 10/23/19 15:34:00 EDT, Height, Dry Weight Start Date: 11/16/19 Status: Ordered citalopram 40 mg oral tablet 1 tablet, By Mouth, Daily, # 90 tablet, 1 Refills, Maintenance, 04/04/20 11:03:00 EST, [facility], 162.5, cm, 04/03/20 11:38:00 EST, Height, 108, [...] 0 Refills, Maintenance, 04/01/20 14:41:00 EST, Tablet, [facility]2339, parital fill upon patient request, 160, [...] EST, [id number] upon patient [...] tablet, 0 Refills, Maintenance, 03/11/20 15:21:00 EST, [facility]/pharmacy #2339, parital fill upon patient request, 160, cm, ... Start Date: 03/11/20 Stop Date: 04/10/20 Status: Ordered morphine 30 mg/8 to 12 hr oral tablet, extended release 1 tablet = 30 mg, By Mouth, 3 times a day, OPIATE AGREEMENT evaluated every 3 to 6 months, # 84 tablet, 0 Refills, Maintenance, 04/01/20 14:41:00 EST, [facility]2339, may fill for less, 160, cm, [...] [facility] use with inhaler Deacon Clinton [facility] use with inhaler, See [...] oldest [Reference Range]: 1 Height 162.5 cm (04/10/20 11:20 AM) Weight 103 kg (04/10/20 11:20 AM) Body Mass Index [18.5-24.99] 39.01 *>HHI* (04/10/20 11:20 AM) Temperature [96.8-100.4 DegF] 97.6 DegF (04/10/20 11:20 AM) Dry Weight 103 kg (04/10/20 11:20 AM) Social History Social History Type Response Smoking Status 5-9 cigarettes (betw een 1/4 to 1/2 pack)/day in last 30 days; Other: Started at 23 years old; entered on: 01/18/20 Sex
--- OUTSIDE RECORDS SUMMARY | 2023-08-02 08:40 | XMS_ITS | Continuity of Care Document ---
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 Role Phone Jose Martinez MD Primary Care Physician [place] [facility] [place]22 - 01/27/22 [facility] [address] [place] [address]- Encounter Diagnosis Atrial fibrillation(Discharge Diagnosis) - 01/20/22 CHF (congestive heart failure) (HITE27-86% on echo 2019)(Discharge Diagnosis) - 01/20/22 Coronary artery disease(Discharge Diagnosis) - 01/20/22 Hypertension(Discharge Diagnosis) - 01/20/22 Hyperlipidemia(Discharge Diagnosis) - 01/20/22 Severe obesity(Discharge Diagnosis) - 01/20/22 Attending Physician: Ruth Kiser MD Referring Physician: [...] H1N1, inactive(oldterm) 7 01/21/09 Given 1Result Comment: [facility]:[id number] 2Result Comment: [01/19/2018] [id number] 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 no contraindications per patient 4Admin Note: [employer] manufacturers. no contraindications per patient 5Admin Note: [employer] [facility] 6Admin Note: [employer],[place] 7Admin Note: Novaritis Medications Albuterol (Eqv-ProAir HFA) [...] 08/06/21 9:00:00 EDT, Route to Pharmacy Electronically, [facility][id number], 157.48, cm, 0... Start Date: 08/06/21 Stop Date: 08/01/22 Status: Ordered aspirin 81 mg oral delayed release tablet 81 mg, By Mouth, Daily, # 30 tablet, Refills 11, Tot. Refills 11, Maintenance, 06/12/21 9:27:00 EDT, Route to Pharmacy Electronically, [facility], Partial fill upon patient request if the prescription is for a schedule II opioid drug., 1... Start Date: 06/12/21 Stop Date: 06/07/22 Status: Ordered Ativan 0.5 mg oral tablet 1 tablet = 0.5 mg, By Mouth, Daily at bedtime, PRN as needed for anxiety, # 30 tablet, 3 Refills, Maintenance, 01/15/22 13:14:00 EDT, Tablet, [facility]/pharmacy #[id number], Partial fill upon patient request [...] EVERY DAY, # 90 tablet, 1 Refills, [facility] STORE 08351, 90, TAKE 1 TABLET BY MOUTH EVERY [...] a day, # 60 tablet, 11 Refills, [facility] STORE 06585, 30, TAKE 1 TABLET BY MOUTH TWICE [...] 08/06/21 9:01:00 EDT, Route to Pharmacy Electronically, [facility]/pharmacy #[id number], 157.48, cm, 08/05/21 14:31:00 EDT, Height, 111,... Start Date: 08/06/21 Stop Date: 08/01/22 Status: Ordered furosemide 20 mg oral tablet 1, tablet, By Mouth, Daily, # 30 tablet, Refills 5, Maintenance, 12/30/21 15:04:00 EDT, Route to Pharmacy Electronically, [facility] STORE 79967, 157.48, cm, 11/04/21 11:33:00 EDT, Height, 111, [...] Maintenance, 01/20/2214:50:00 EDT, Route to Pharmacy Electronically, [facility]/pharmacy #[id number], Partial fill upon patient request [...] tablet, 0 Refills, Maintenance, 08/19/21 14:03:00 EDT, [facility]/pharmacy #[id number], parital fill upon patient request, 157.48, cm, 07/21... Start Date: 08/19/21 Stop Date: 09/16/21 Status: Ordered morphine 15 mg/8 to 12 hr oral tablet, extended release 1 tablet = 15 mg, By Mouth, Every 8 hours, PRN Pain , Moderate, On substance agreement evaluated every 3 to 6 months, # 84 tablet, 0 Refills, Maintenance, 11/25/21 15:15:00 EDT, [facility]/pharmacy #[id number], parital fill upon patient request, [...] tablet, 1 Refills, Maintenance, 11/25/21 12:04:00 EDT, [facility] STORE 94032, 157.48, cm, 11/04/21 11:33:00 EDT, Height, 111, [...] chronic Confirmed Active CHF (congestive heart failure) (LBPO10-52% on 2019) Confirmed Active Continuous opioid dependence Confirmed [...] Clinical Service Informant Atrial fibrillation Discharge Diagnosis 01/20/22 CHF (congestive heart failure) (UXBG21-34% on 2019) Discharge Diagnosis 01/20/22 Coronary artery disease Discharge Diagnosis 01/20/22 Hypertension Discharge Diagnosis 01/20/22 Hyperlipidemia Discharge Diagnosis 01/20/22 Severe obesity Discharge Diagnosis 01/20/22 Vital Signs Most recent to oldest [Reference Range]: 1 2 Height 157.48 cm (01/20/22 2:40 PM) 157.48 cm (01/20/22 2:38 PM) Weight 111.5 kg (01/20/22 2:38 PM) Pulse Rate [55-90 bpm] 79 bpm (01/20/22 2:40 PM) 76 bpm (01/20/22 2:38 PM) Body Mass Index [18.5-24.99 kg/m2] 44.96 kg/m2 *>HHI* (01/20/22 2:38 PM) Blood Pressure [90-138/55-84 mm Hg] 123/ 83mm Hg (01/20/22 2:40 PM) 128/86mm Hg (01/20/22 2:38 PM) Blood pressure sites Arm, right (01/20/22 2:40 PM) Arm, right (01/20/22 2:38 PM) Social History Social History Type Response Smoking Status 5-9 cigarettes (betw een 1/4 to 1/2 pack)/day in last 30 days; Other: Started at 23 years old; entered on: 01/18/20 Sex Cardiology Outpatient Note * Margi HICKEY, Ruth Campbell: PERFORM Event Display: Cardiology Note Office Authored Date: [id number] Patient: ??ELYSSA ALFREDO ? Age:??66 Years?Sex:??Female?:??1955?? Indication for Consult CHF History of Present Illness/Interval History Past visit: [...] to our last visit,??she was readmitted to [facility] and was noted to have orthostasis??about [...] LVEDP 10-13. Physical Exam Vitals & Measurements MT:??79?? BP:??123/83?? HT:??157.48??cm?? WT:??111.5??kg?? BMI:??44.96?? Weight lb/oz: 245 lb 13 oz HEENT: EOMI obese neck: JVD 4cm Pulm: CTAB Cardiac: RRR no m/r/g GI: soft +BS EXT: no edema Neuro:??grossly nonfocal Skin:??warm and dry Psych: alert and coop Assessment/Plan 1.??Atrial fibrillation Ordered: B Type Natriuretic Peptide Basic Metabolic Panel ?? 2.??CHF (congestive heart failure) (MWVS35-58% on echo 2019) Ordered: B Type Natriuretic Peptide Basic Metabolic Panel ?? 3.??Coronary artery disease Ordered: B Type Natriuretic Peptide Basic Metabolic Panel ?? 4.??Hypertension Ordered: B Type Natriuretic Peptide Basic Metabolic Panel ?? 5.??Hyperlipidemia Ordered: B Type Natriuretic Peptide Basic Metabolic Panel ?? 6.??Severe obesity ?? Orders: Metoprolol, 150 mg, 1.5, tablet, By Mouth, Daily, # 45 tablet, Refills 6, Tot. Refills 6, Maintenance, 01/20/22 14:50:00 EDT, Route to Pharmacy Electronically, [facility]/pharmacy #[id number], Partial fill upon patient request if the prescription is for a schedule II opioid d... This is a 65-year-old female for follow [...] telehealth visit she was admitted??early May to [facility] with??acute CHF and an NSTEMI, her cardiac [...] cardiomyopathy based on??those findings and??EKGs. ??Her presentation??to [facility] when she was diagnosed with a cardiomyopathy??notable for rate controlled A. fib. ??I do not think??that she would maintain sinus rhythm??and I do not think that the loss of atrial kick is a contributor in her??persistent symptoms or past??volume overload.?I am having her increase metoprolol succinate to 150 mg daily???goal of getting to 200 mg daily. ??She will return for nurse visit blood pressure check,??follow-up with me??in 3 months. ??I am deferring Aldactone given her borderlinepotassium. ??She will repeat labs prior to her next visit. ??She has no CHF on exam. ??She has no significant valvular disease. ??Certainly tobacco cessation is imperative, I congratulated her on stopping smoking and encouraged her to continue??cessation. ??Morbid obesity, sleep apnea??along with other medical problems may be contributors for her symptoms as well as cardiomyopathy.?She denies any palpitations,??presyncope or syncope.?She is on Coumadin, her last INR was therapeutic.?She is on atorvastatin 40 mg p.o. daily which she should continue.?? 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 Daily Erica oral tablet, See Instructions, TAKE 1 TABLET BY MOUTH EVERY DAY Dulera 100 mcg-5 mcg/inh inhalation aerosol, 2 [...] EVERY NIG warfarin 5 mg oral tablet, 2.5 mg= 0.5 tablet, By Mouth, Daily, Goal INR 2-3 Please follow up with your coumadin clinic Lab Results Cardiology Labs WBC:??11.9 k/mm3??High (10/24/21) RBC: 4.6 m/mm3 (10/24/21) Hgb:??11.6 Gm/dL??Low (10/24/21) Hct: 39.4 % (10/24/21) MCV: 85.7 femtoliters (10/24/21) MCH:??25.2 pg??Low (10/24/21) MCHC:??29.4 g/dL??Low (10/24/21) Platelet Count: 218 k/mm3 (10/24/21) RDW-SD:??52.2 femtoliters??High (10/24/21) Nucleated RBC (Automated): 0 #/100 WBC'S (10/24/21) Abs. Neut:??8.8 k/mm3??High (10/24/21) Abs. Lymph: 2 k/mm3 (10/24/21) Abs. Castro: 0.7 k/mm3 (10/24/21) Abs. Eo: 0.3 k/mm3 (10/24/21) Abs. Baso: 0.1 k/mm3 (10/24/21) Neut %: 74.1 % (10/24/21) Castro %: 5.5 % (10/24/21) Eos %: 2.3 % (10/24/21) Baso %: 0.7 % (10/24/21) Imm Gran: 0.3 % (10/24/21) Abs. Imm Gran: 0 k/mm3 (10/24/21) INR:??2??High (01/14/22) Protime (PT):??19.8 seconds??High (01/14/22) APTT:??93.9 seconds??Critical (05/27/21) Sodium: 142 mmol/L (12/15/21) Potassium: 4.8 mmol/L (12/15/21) Chloride: 106 mmol/L (12/15/21) Bicarbonate Level: 25 mmol/L (12/15/21) Glucose Level: 90 mg/dL (12/15/21) Hemoglobin A1C (Monitoring): 5.1 % (05/28/21) BUN: 13 mg/dL (12/15/21) Creatinine-Blood: 0.8 mg/dL (12/15/21) Calcium: 9.3 mg/dL (12/15/21) Protein, Total: 6.6 Gm/dL (10/24/21) Albumin: 4.1 Gm/dL (10/24/21) Alkaline Phosphatase:??105 units/L??High (10/24/21) AST (SGOT): 19 units/L (10/24/21) ALT (SGPT): 15 units/L (10/24/21) Bilirubin, Total: 0.5 mg/dL (10/24/21) Troponin T Quant: 0.04 ng/mL (10/24/21) Nt-Probnp:??900 pg/mL??High (11/26/21) Cholesterol: 173 mg/dL (05/26/21) Triglycerides: 133 mg/dL (05/26/21) HDL Cholesterol: 43 mg/dL (05/26/21) LDL Cholesterol: 103 mg/dL (05/26/21) Non HDL Cholesterol: 130 mg/dL (05/26/21) TSH:??9.39 uIU/mL??High (06/09/21) Free T4: 0.8 ng/dL (06/11/21) Diagnostic Impression ECG ECG 12-Lead ?? 15:22:57 Please click on pdf link to open report ?? Signed By: Jonathan HICKEY, Will Krishnan Echo Echocardiogram - Complete ?? 13:11:25 Summary [...] History Ongoing Asthma Atrial fibrillation Back pain CHF (congestive heart failure) (JMHQ59-29% on echo 2019) Cholecystectomy Continuous opioid dependence [...] Care Team Personnel Name: Komal Villelaianna Position: [facility] RN Supv Member Role: Primary Care Nurse Name: Nichole Coates RN Position: [facility] SN RN Member Role: Primary Care Nurse Name: Ksenia Herzog RN Position: [facility] RN Member Role: Primary Care Nurse Name: Leatha Walsh RN Position: [facility] RN Member Role: Primary Care Nurse Name: Milagro Sims RN Position: [facility] RN Member Role: Primary Care Nurse Name: Jo Ann Stubbs PharmD Position: [facility] Associate Professional Member Role: Lifetime Consulting Provider Address: Address: [address] [place] [address]- Name: Anne Gonzalez RN Position: [facility] RN Member Role: Primary Care Nurse Name: Mckayla Wilcox RN Position: [facility] SN RN Member Role: Primary Care Nurse Name: Simin Chen RN Position: [facility] RN Member Role: Primary Care Nurse Name: Jose Martinez MD Position: [facility] Primary Care Physician Member Role: PCP Address: Address: [address] [place] [address]- [place] Name: Aleks Merchant RN Position: [facility] RN Member Role: Primary Care Nurse Name: Genet Bowman RN Position: [facility] SN RN Member Role: Primary Care Nurse Name: Ilana Burns RN Position: [facility] RN Member Role: Primary Care Nurse Care Team Related Persons Name: TUTU ROWLAND Address: [address] [place] [address] Name: JANET CONNOR Address: home [address] [place] [address]
--- OUTSIDE RECORDS SUMMARY | 2023-08-02 08:40 | XMS_ITS | Continuity of Care Document ---
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 no contraindications per patient 5Admin Note: [employer] [facility] 6Admin Note: [employer],[place] 7Admin Note: Novaritis Medications Albuterol (Eqv-ProAir HFA) 2 puffs, Inhalation, Every 6 hours, 0 Refills, Maintenance, 10/13/21 13:54:00 EDT, Partial fill upon patient request if the prescription is for a schedule II opioid drug. Start Date: 10/13/21 Status: Ordered amLODIPine 10 mg oral tablet 1 tablet, By Mouth, Daily, # 90 tablet, 3 Refills, Maintenance, 02/23/22 8:50:00 EST, [facility] STORE 90586, 157.48, cm, 01/20/22 14:40:00 EDT, Height, 111, [...] 06/12/21 9:27:00 EDT, Route to Pharmacy Electronically, [facility], Partial fill upon patient request if the prescription is for a schedule II opioid drug., 1... Start Date: 06/12/21 Stop Date: 06/07/22 Status: Ordered Ativan 0.5 mg oral tablet 1 tablet = 0.5 mg, By Mouth, Daily at bedtime, PRN as needed for anxiety, # 30 tablet, 3 Refills, Maintenance, 01/15/22 13:14:00 EDT, Tablet, [facility]/pharmacy #2339, Partial [...] EVERY DAY, # 90 tablet, 1 Refills, [facility]ORE 65647, 90, TAKE 1 TABLET BY MOUTH EVERY [...] tablet, 11 Refills, [facility] STORE 98045, 30, TAKE 1 TABLET BY MOUTH TWICE [...] 12/30/21 15:04:00 EDT, Route to Pharmacy Electronically, [facility] STORE 36248, 157.48, cm, 11/04/21 11:33:00 EDT, Height, 111, kg, 06/10/2214:06:00 EDT, Dry Weight Start Date: 12/30/21 Status: Ordered Lipitor 80 mg oral tablet 1 tablet = 80 mg, By Mouth, Daily at bedtime, # 30 tablet, 11 Refills, Maintenance, 06/12/21 9:27:00 EDT, Tablet, [facility], Partial fill upon patient request if the prescription is for a schedule II opioid drug., 157.48, cm, 06/10/21 1... Start Date: 06/12/21 Status: Ordered metoprolol 100 mg oral tablet, extended release 150 mg, 1.5, tablet, By Mouth, Daily, # 45 tablet, Refills 6, Tot. Refills 6, Maintenance, 01/20/2214:50:00 EDT, Route to Pharmacy Electronically, [facility]/pharmacy #2339, Partial fill upon [...] tablet, 0 Refills, Maintenance, 11/25/21 15:15:00 EDT, [facility]/pharmacy #2339, parital fill [...] tablet, 5 Refills, Maintenance, 02/23/22 8:50:00 EST, [facility] STORE 00509, 157.48, cm, 01/20/22 14:40:00 EDT, Height, 111, kg, ... Start Date: 02/23/22 Status: Ordered warfarin 5 mg oral tablet 0.5 tablet = 2.5 mg, By Mouth, Daily, Goal INR 2-3 Please follow up with your coumadin clinic, # 15tablet, 0 Refills, Maintenance, 06/12/21 9:27:00 EDT, Tablet, [facility], Partial fill upon patient request if the prescription is for a... Start Date: 06/12/21 Status: Ordered Problem List Condition Confirmation Course Effective Dates Status H ealth Status Informant Asthma Confirmed Active Atrial fibrillation Confirmed Active Back pain 1 Confirmed Active Major depression, chronic Confirmed Active CHF (congestive heart failure) (OPSV55-93% on echo 2019) Confirmed Active Continuous opioid [...] Care Nurse Name: Nichole Coates RN Position: [facility] RN Member Role: Primary Care Nurse Name: Ksenia Herzog RN Position: S RN Member Role: Primary Care Nurse Name: Leatha Walsh RN Position: S RN Member Role: Primary Care Nurse Name: Milagro Sims RN Position: S RN Member Role: Primary Care Nurse Name: Jo Ann Stubbs PharmD Position: [facility] Associate Professional Member Role: Lifetime Consulting Provider Address: Address: [address] [place] [id number] [place] Name: Anne Gonzalez RN Position: [facility] RN Member Role: Primary Care Nurse Name: Mckayla Wilcox RN Position: [facility] SN RN Member Role: Primary Care Nurse Name: Simin Chen RN Position: [facility] RN Member Role: Primary Care Nurse Name: Jose Martinez MD Position: [facility] Primary Care Physician Member Role: PCP Address: Address: [address] [place] [phone]- [place] Name: Aleks Merchant RN Position: [facility] RN Member Role: Primary Care Nurse Name: Genet Bowman RN Position: [facility] SN RN Member Role: Primary Care Nurse Name: Ilana Burns RN Position: [facility] RN Member Role: Primary Care Nurse Care Team Related Persons Name: TUTU ROWLAND Address: home [address] [place] [address] Name: JANET CONNOR Address: home [address] [place] [address]
--- OUTSIDE RECORDS SUMMARY | 2023-08-02 08:40 | XMS_ITS | Continuity of Care Document ---
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 no contraindications per patient 5Admin Note: [employer] [facility] 6Admin Note: [employer],[place] 7Admin Note: Novaritis Medications Albuterol (Eqv-ProAir HFA) 2 puffs, Inhalation, Every 6 hours, 0 Refills, Maintenance, 10/13/21 13:54:00 EDT, Partial fill upon patient request if the prescription is for a schedule II opioid drug. Start Date: 10/13/21 Status: Ordered amLODIPine 10 mg oral tablet 1 tablet, By Mouth, Daily, # 90 tablet, 3 Refills, Maintenance, 02/23/22 8:50:00 EST, [facility] STORE 54255, 157.48, cm, 01/20/22 14:40:00 EDT, Height, 111, kg, 06/10/21 15:06:00 EDT, Dry Weight Start Date: 02/23/22 Status: Ordered ARIPiprazole 5 mg oral tablet 1, tablet, By Mouth, Daily, X90 DAYS,INSTR:TO BE COMBINED WITH THE CITALOPRAM THERAPY, # 90 tablet,Refills 1, Maintenance, 07/26/22 7:25:00 EDT, Route to Pharmacy Electronically, [facility] STORE 72896, 157.48, cm, 05/18/22 9:48:00 EST, Height, 111, [...] 5 Refills, Maintenance, 05/25/22 7:04:00 EST, Tablet, [facility]/pharmacy #2339, Partial fill upon patient request if the prescription is for a schedule II opioid drug., 1... Start Date: 05/25/22 Status: Ordered citalopram 40 mg oral tablet 1 tablet, By Mouth, Daily, # 90 tablet, 1 Refills, Maintenance, 06/22/22 14:38:00 EDT, [facility]32, 157.48, cm, 05/18/22 9:48:00 EST, Height, 111, [...] # 90 tablet, 1 Refills, [facility], 90, TAKE 1 TABLET BY MOUTH EVERY [...] Refills, Maintenance, 07/08/22 11:55:00 EDT, [facility], 30, INHALE 2 PUFFS TWICE A DAY, 157.48, cm, 05/18/22 9:48:00 EST, Height, 111, kg, 06/10/21 15:06:00 EDT, Dry Weight Start Date: 07/08/22 Status: Ordered Entresto 24 mg-26 mg oral tablet 1 tablet, By Mouth, 2 times a day, # 60 tablet, 11 Refills, Maintenance, 09/21/22 14:36:00 EDT, [facility], 30, TAKE 1 TABLET BY MOUTH TWICE A DAY, 157.48, cm, 08/28/22 9:39:00 EDT, Height, 111,kg, 06/10/21 15:06:00 EDT, Dry Weight Start Date: 09/21/22 Status: Ordered Entresto 24 mg-26 mg oral tablet 1 tablet, By Mouth, 2 times a day, # 60 tablet, 11 Refills, [facility], 30, TAKE 1 TABLET BY MOUTH TWICE A DAY, 157.48, cm, 08/12/21 10:44:00 EDT, Height, 111, kg, 06/10/21 15:06:00 EDT, Dry Weight Start Date: 09/18/21 Status: Ordered ferrous sulfate 325 mg oral enteric coated tablet 1, tablet, By Mouth, 2 times a day, # 180 tablet, Refills 1, Maintenance, 07/26/22 7:26:00 EDT, Route to Pharmacy Electronically, [facility] STORE 09125, 157.48, cm, 05/18/22 9:48:00 EST, Height, 111, kg, 06/10/21 15:06:00 EDT, Dry Weight Start Date: 07/26/22 Status: Ordered furosemide 20 mg oral tablet 1, tablet, By Mouth, Daily, # 90 tablet, Refills 1, Maintenance, 07/02/22 8:00:00 EDT, Route to Pharmacy Electronically, [facility] STORE 21314, 157.48, cm, 05/18/22 9:48:00 EST, Height, 111, kg, 06/10/21 15:06:00 EDT, Dry Weight Start Date: 07/02/22 Status: Ordered furosemide 20 mg oral tablet 1, tablet, By Mouth, Daily, # 30 tablet, Refills 5, Maintenance, 12/30/21 15:04:00 EDT, Route to Pharmacy Electronically, [facility] STORE 57556, 157.48, cm, 11/04/21 11:33:00 EDT, Height, 111, kg, 06/10/2214:06:00 EDT, Dry Weight Start Date: 12/30/21 Status: Ordered Lipitor 80 mg oral tablet 1 tablet = 80 mg, By Mouth, Daily at bedtime, # 90 tablet, 1 Refills, Maintenance, 07/02/22 13:46:00 EDT, Tablet, [facility]/pharmacy #2339, Partial fill upon patient request if the prescription is for a schedule II opioid drug., 157.48, cm, 05/18/22 9:48:00... Start Date: 07/02/22 Stop Date: 12/29/22 Status: Ordered Metoprolol Succinate ER 25 mg oral tablet, extended release 1 tablet, By Mouth, Daily, # 90 tablet, 2 Refills, Maintenance, 05/21/22 10:15:00 EST, [facility] STORE 40193, 157.48, cm, 05/18/22 9:48:00 EST, Height, 111, kg, 06/10/21 15:06:00 EDT, Dry Weight Start Date: 05/21/22 Status: Ordered rOPINIRole 0.25 mg oral tablet See Instructions, TAJE 1 TABLET BY MOUTH AT BEDTIME FOR 1 WEEK THEN INCRAESE TO 2 AT NIGHT FOR 1 WEEK THEN 3 EVERY NIG, # 270 tablet, 1 Refills, Maintenance, 06/22/22 14:48:00 EDT, [facility] STORE 44409, 157.48, cm, 05/18/22 9:48:00 EST, Height, 111, kg, 03... Start Date: 06/22/22 Status: Ordered spironolactone 25 mg oral tablet 0.5, tablet, By Mouth, Daily, # 45 tablet, Refills 1, Maintenance, 05/21/22 10:15:00 EST, Route to Pharmacy Electronically, [facility] STORE 88651, 157.48, cm, 05/18/22 9:48:00 EST, Height, 111, kg, 06/10/21 15:06:00 EDT, Dry Weight Start Date: 05/21/22 Status: Ordered warfarin 5 mg oral tablet See Instructions, Take 1/2 to 1 tablet By Mouth Daily as directed by coumadin clinic, # 90 tablet, 2 Refills, Maintenance, 05/12/22 13:52:00 EST, Tablet, [facility], Partial fill upon patientrequest if the prescription is for a schedule II... Start Date: 05/12/22 Status: Ordered Problem List Condition Confirmation Course Effective Dates Status H ealth Status Informant Asthma Confirmed Active Atrial fibrillation Confirmed Active Back pain 1 Confirmed Active Cardiomyopathy Confirmed Active Major depression, chronic Confirmed Active CHF (congestive heart failure) (ZTIB72-92% on echo 2019) Confirmed Active Coronary artery [...] * Event Display: X-Ray Upper Extremity, Non- Authored Date: Patient Care team information Care Team Personnel Name: Radha Villela Position: [facility] RN Supv Member Role: Primary Care Nurse Name: Nichole Coates RN Position: [facility] RN Member Role: Primary Care Nurse Name: Ksenia Herzog RN Position: [facility] RN Member Role: Primary Care Nurse Name: Leatha Walsh RN Position: [facility] RN Member Role: Primary Care Nurse Name: Milagro Sims RN Position: [facility] RN Member Role: Primary Care Nurse Name: Jo Ann Stubbs PharmD Position: [facility] Associate Professional Member Role: Lifetime Consulting Provider Address: Address: [address] [place] [address] [place] [address]- Name: Anne Gonzalez RN Position: [facility] RN Member Role: Primary Care Nurse Name: Mckayla Wilcox RN Position: [facility] SN RN Member Role: Primary Care Nurse Name: Simin Chen RN Position: S RN Member Role: Primary Care Nurse Name: Jose Martinez MD Position: [facility] Physician - Primary Care Member Role: PCP Address: Address: [address] [place] [address] Name: Aleks Merchant RN Position: [facility] RN Member Role: Primary Care Nurse Name: Genet Bowman RN Position: [facility] SN RN Member Role: Primary Care Nurse Name: Ilana Burns RN Position: [facility] RN Member Role: Primary Care Nurse Care Team Related Persons Name: TUTU ROWLAND Address: home [address] [place] [address] Name: JANET CONNOR Address: home [address] [place] [address]
--- OUTSIDE RECORDS SUMMARY | 2023-08-02 08:40 | XMS_ITS | Continuity of Care Document ---
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 no contraindications per patient 5Admin Note: [facility] 6Admin Note: [employer],[place] 7Admin Note: Novaritis Medications Albuterol (Eqv-ProAir HFA) 2 puffs, Inhalation, Every 6 hours, 0 Refills, Maintenance, 10/13/21 13:54:00 EDT, Partial fill upon patient request if the prescription is for a schedule II opioid drug. Start Date: 10/13/21 Status: Ordered amLODIPine 10 mg oral tablet 1 tablet, By Mouth, Daily, # 90 tablet, 3 Refills, Maintenance, 02/23/22 8:50:00 EST, [facility] STORE 37391, 157.48, cm, 01/20/22 14:40:00 EDT, Height, 111, kg, 06/10/21 15:06:00 EDT, Dry Weight Start Date: 02/23/22 Status: Ordered ARIPiprazole 5 mg oral tablet 1, tablet, By Mouth, Daily, X90 DAYS,INSTR:TO BE COMBINED WITH THE CITALOPRAM THERAPY, # 90 tablet,Refills 1, Maintenance, 07/26/22 7:25:00 EDT, Route to Pharmacy Electronically, [facility] STORE 07186, 157.48, cm, 05/18/22 9:48:00 EST, Height, 111, kg, 03/... Start Date: 07/26/22 Status: Ordered aspirin 81 mg oral delayed release tablet 81 mg, By Mouth, Daily, # 30 tablet, Refills 11, Tot. Refills 11, Maintenance, 06/12/21 9:27:00 EDT, Route to Pharmacy Electronically, [facility], Partial fill upon patient request if the prescription is for a schedule II opioid drug., 1... Start Date: 06/12/21 Stop Date: 06/07/22 Status: Ordered Ativan 0.5 mg oral tablet 1 tablet = 0.5 mg, By Mouth, Daily at bedtime, PRN as needed for anxiety, # 30 tablet, 5 Refills, Maintenance, 05/25/22 7:04:00 EST, Tablet, [facility]/pharmacy #2339, Partial fill upon patient request if the prescription is for a schedule II opioid drug., 1... 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, 12/22/21 11:06:00 EDT, Supply Start Date: 12/22/21 Status: Ordered Daily Ercia oral tablet See Instructions, TAKE 1 TABLET BY MOUTH EVERY DAY, # 90 tablet, 1 Refills, [facility], 90, TAKE 1 TABLET BY MOUTH EVERY [...] each, 11 Refills, Maintenance, 07/08/22 11:55:00 EDT, [facility] STORE 89450, 30, INHALE 2 PUFFS TWICE A DAY, 157.48, cm, 05/18/22 9:48:00 EST, Height, 111, kg, 06/10/21 15:06:00 EDT, Dry Weight Start Date: 07/08/22 Status: Ordered Entresto 24 mg-26 mg oral tablet 1 tablet, By Mouth, 2 times a day, # 60 tablet, 11 Refills, Maintenance, 09/21/22 14:36:00 EDT, [facility], 30, TAKE 1 TABLET BY MOUTH TWICE A DAY, 157.48, cm, 08/28/22 9:39:00 EDT, Height, 111,kg, 06/10/21 15:06:00 EDT, Dry Weight Start Date: 09/21/22 Status: Ordered Entresto 24 mg-26 mg oral tablet 1 tablet, By Mouth, 2 times a day, # 60 tablet, 11 Refills, [facility], 30, TAKE 1 TABLET BY MOUTH TWICE A DAY, 157.48, cm, 08/12/21 10:44:00 EDT, Height, 111, kg, 06/10/21 15:06:00 EDT, Dry Weight Start Date: 09/18/21 Status: Ordered ferrous sulfate 325 mg oral enteric coated tablet 1, tablet, By Mouth, 2 times a day, # 180 tablet, Refills 1, Maintenance, 07/26/22 7:26:00 EDT, Route to Pharmacy Electronically, [facility] STORE 53897, 157.48, cm, 05/18/22 9:48:00 EST, Height, 111, kg, 06/10/21 15:06:00 EDT, Dry Weight Start Date: 07/26/22 Status: Ordered furosemide 20 mg oral tablet 1, tablet, By Mouth, Daily, # 90 tablet, Refills 1, Maintenance, 07/02/22 8:00:00 EDT, Route to Pharmacy Electronically, [facility] STORE 39686, 157.48, cm, 05/18/22 9:48:00 EST, Height, 111, kg, 06/10/21 15:06:00 EDT, Dry Weight Start Date: 07/02/22 Status: Ordered furosemide 20 mg oral tablet 1, tablet, By Mouth, Daily, # 30 tablet, Refills 5, Maintenance, 12/30/21 15:04:00 EDT, Route to Pharmacy Electronically, [facility] STORE 26711, 157.48, cm, 11/04/21 11:33:00 EDT, Height, 111, kg, 06/10/2214:06:00 EDT, Dry Weight Start Date: 12/30/21 Status: Ordered Lipitor 80 mg oral tablet 1 tablet = 80 mg, By Mouth, Daily at bedtime, # 90 tablet, 1 Refills, Maintenance, 07/02/22 13:46:00 EDT, Tablet, [facility]/pharmacy #2339, Partial fill upon patient request if the prescription is for a schedule II opioid drug., 157.48, cm, 05/18/22 9:48:00... Start Date: 07/02/22 Stop Date: 12/29/22 Status: Ordered Metoprolol Succinate ER 25 mg oral tablet, extended release 1 tablet, By Mouth, Daily, # 90 tablet, 2 Refills, Maintenance, 05/21/22 10:15:00 EST, [facility] STORE 34318, 157.48, cm, 05/18/22 9:48:00 EST, Height, 111, kg, 06/10/21 15:06:00 EDT, Dry Weight Start Date: 05/21/22 Status: Ordered rOPINIRole 0.25 mg oral tablet See Instructions, TAJE 1 TABLET BY MOUTH AT BEDTIME FOR 1 WEEK THEN INCRAESE TO 2 AT NIGHT FOR 1 WEEK THEN 3 EVERY NIG, # 270 tablet, 1 Refills, Maintenance, 06/22/22 14:48:00 EDT, [facility] STORE 12344, 157.48, cm, 05/18/22 9:48:00 EST, Height, 111, kg, 03... Start Date: 06/22/22 Status: Ordered spironolactone 25 mg oral tablet 0.5, tablet, By Mouth, Daily, # 45 tablet, Refills 1, Maintenance, 05/21/22 10:15:00 EST, Route to Pharmacy Electronically, [facility] STORE 31318, 157.48, cm, 05/18/22 9:48:00 EST, Height, 111, [...] chronic Confirmed Active CHF (congestive heart failure) (AKMP03-23% on echo 2019) Confirmed Active Coronary artery disease Confirmed Active Opiate analgesic contract exists Confirmed Active Generalized anxiety disorder Confirmed Active Hip pain 2 Confirmed Active Hip replacement 3 Confirmed Active Hyperlipidemia Confirmed Active Hypertension Confirmed Active Patient has healthcare proxy - 10/02/11 Confirmed Active OA - Osteoarthritis 4 Confirmed 03/29/08 Active Obesity (BMI 30-39.9) Confirmed Active PRICNESS - Obstructive sleep apnea Confirmed 01/21/09 Active [...] Personnel Name: Radha Villela Position: [facility] RN Supv Member Role: Primary Care Nurse Name: Nichole Coates RN Position: [facility] RN Member Role: Primary Care Nurse Name: Ksenia Herzog RN Position: [facility] RN Member Role: Primary Care Nurse Name: Leatha Walsh RN Position: [facility] RN Member Role: Primary Care Nurse Name: Milagro Sims RN Position: [facility] RN Member Role: Primary Care Nurse Name: Jo Ann Stubbs PharmD Position: [facility] Associate Professional Member Role: Lifetime Consulting Provider Address: Address: [address] [place] [address] [place] [address]- Name: Anne Gonzalez RN Position: [facility] RN Member Role: Primary Care Nurse Name: Mckayla Wilcox RN Position: [facility] SN RN Member Role: Primary Care Nurse Name: Simin Chen RN Position: [facility] RN Member Role: Primary Care Nurse Name: Jose Martinez MD Position: [facility] Physician - Primary Care Member Role: PCP Address: Address: [address] [place] [address]- Name: Aleks Merchant RN Position: S RN Member Role: Primary Care Nurse Name: Genet Bowman RN Position: [facility] RN Member Role: Primary Care Nurse Name: Ilana Burns RN Position: S RN Member Role: Primary Care Nurse Care Team Related Persons Name: TUTU ROWLAND Address: home [address] [place] [id number] Name: JANET CONNOR Address: home [address] [place] [address]
--- OUTSIDE RECORDS SUMMARY | 2023-08-02 08:40 | XMS_ITS | Continuity of Care Document ---
Author Organization [facility] Address Unknown Care Team Providers Care Pododermatologist Name Role Phone Jose Martinez MD Primary Care Physician [phone] Encounter [facility] Date(s): 06/02/21 - 06/09/21 [facility] Encounter Diagnosis Atrial fibrillation(Discharge Diagnosis) - 06/03/21 Asthma(Discharge Diagnosis) - 06/03/21 Thrush(Discharge Diagnosis) - 06/03/21 Attending Physician: Jose Martinez MD Allergies, Adverse [...] H1N1, inactive(oldterm) 7 01/21/09 Given 1Result Comment: [facility]:[id number] 2Result Comment: [01/19/2018] [id number] 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 no contraindications per patient 5Admin Note: [facility] 6Admin Note: [employer],[place] 7Admin Note: Novaritis Medications amLODIPine 10 mg oral tablet 10 mg, 1, tablet, By Mouth, Daily, for 30 days, # 30 tablet, Refills 3, Tot. Refills 3, Hard Stop 09/25/21 9:14:00 EDT, 05/28/21 9:14:00 EST, Route to Pharmacy Electronically, [facility], Partial fill upon patient request if the prescrip... Start Date: 05/28/21 Stop Date: 09/25/21 Status: Ordered ARIPiprazole 5 mg oral tablet 1, tablet, By Mouth, Daily, TO BE COMBINED WITH THE CITALOPRAM THERAPY, # 90 tablet, Refills 0, Route to Pharmacy Electronically, [id number], 160, cm, 06/02/21 13:26:00 EDT, Height, 103, kg, 04/10/20 11:20:00 EST, Dry Weight Start Date: 06/03/21 Status: Ordered aspirin 81 mg oral delayed release tablet 81 mg, By Mouth, Daily, # 30 tablet, Refills 11, Tot. Refills 11, Maintenance, 05/28/21 9:14:00 EST, Route to Pharmacy Electronically, [facility], Partial fill upon patient request if the prescription is for a schedule II opioid drug., 1... Start Date: 05/28/21 Stop Date: 05/23/22 Status: Ordered Ativan 0.5 mg oral tablet 1 tablet = 0.5 mg, By Mouth, 3 times a day, PRN anxiety, # 90 tablet, 2 Refills, Maintenance, 02/24/21 14:29:00 EST, Tablet, [facility]/pharmacy #[id number], 162.5, cm, 01/29/21 12:38:00 EST, Height, 103, kg, 04/10/20 11:20:00 EST, Dry Weight Start Date: 02/24/21 Status: Ordered citalopram 40 mg oral tablet 1 tablet, By Mouth, Daily, # 90 tablet, 1 Refills, [id number], 162.5, cm, 01/29/21 12:38:00 EST, Height, 103, kg, 04/10/20 11:20:00 EST, Dry Weight Start Date: 04/07/21 Status: Ordered clotrimazole 10 mg oral lozenge 10 mg, 1, lozenge, By Mouth, 5 times a day, for 7 days, # 35 lozenge, Refills 1, Tot. Refills 1, Acute 06/16/21 14:14:00 EDT, 06/02/21 14:14:00 EDT, Route to Pharmacy Electronically, [facility]/pharmacy #[id number], Partial fill upon patient request if the prescri... Start Date: 06/02/21 Stop Date: 06/16/21 Status: Ordered Dilaudid 2 mg oral tablet 1 tablet = 2 mg, By Mouth, Daily, PRN Pain , Mild, On substance agreement evaluated every 3 to 6 months, # 28 tablet, 0 Refills, Maintenance, 05/12/21 15:33:00 EST, Tablet, [facility]/pharmacy #[id number], parital fill upon patient request, 162.5, [...] tablet, Refills 1, Route to Pharmacy Electronically, [facility] [id number], 162.5, cm, 01/29/21 12:38:00 EST, Height, 103, kg, 04/10/20 11:20:00 EST, Dry Weight Start Date: 04/07/21 Status: Ordered Lipitor 80 mg oral tablet 1 tablet = 80 mg, By Mouth, Daily at bedtime, # 30 tablet, 3 Refills, Maintenance, 05/28/21 9:15:00EST, Tablet, [facility], Partial fill upon patient [...] 09/25/21 9:32:00 EDT, Route to Pharmacy Electronically, [facility]/pharmacy #[id number], Partial fill upon patient request if the prescr... Start Date: 09/25/21 Status: Ordered Metoprolol Succinate ER 25 mg oral tablet, extended release 1 tablet, By Mouth, Daily, # 90 tablet, 1 Refills, Maintenance, 04/02/21 9:43:00 EST, [facility]/pharmacy #2339, 162.5, cm, 01/29/21 12:38:00 EST, Height, 103, kg, 04/10/20 11:20:00 EST, Dry Weight Start Date: 04/02/21 Status: Ordered morphine 15 mg/8 to 12 hr oral tablet, extended release 1 tablet = 15 mg, By Mouth, Every 8 hours, PRN Pain , Moderate, On substance agreement evaluated every 3 to 6 months, # 90 tablet, 0 Refills, Maintenance, 05/12/21 15:33:00 EST, [facility]/pharmacy #2339, parital fill upon patient request, 162.5, cm, 05/12... Start Date: 05/12/21 Stop Date: 06/11/21 Status: Ordered morphine 30 mg/8 to 12 hr oral tablet, extended release 1 tablet = 30 mg, By Mouth, 3 times a day, OPIATE AGREEMENT evaluated every 3 to 6 months, # 84 tablet, 0 Refills, Maintenance, 05/12/21 15:33:00 EST, [facility]pharmacy [id number], may fill for less, 162.5, cm, 05/12/21 9:43:00 EST, Height, 103, kg, 04/10/20 1... Start Date: 05/12/21 Stop Date: 06/09/21 Status: Ordered multivitamin Multiple Vitamins oral tablet 1 tablet, By Mouth, Daily, # 30 tablet, 5 Refills, Maintenance, 06/09/21 15:31:00 EDT, Tablet, [facility]/pharmacy #2339, Partial fill upon patient request if the prescription is for a schedule II opioid drug., 1 tablet By Mouth Daily, 160, cm, 06/02/21 13:2... Start Date: 06/09/21 Status: Ordered nicotine 14 mg/24 hr transdermal film, extended release 1 patch, Topically, Daily, for 14 days, # 14 patch, 0 Refills, Acute 06/11/21 12:09:00 EDT, 05/28/21 12:09:00 EST, Patch, [facility], Partial fill upon patient request if the prescription is for a schedule II opioid drug., 1 patch Topica... Start Date: 05/28/21 Stop Date: 06/11/21 Status: Ordered torsemide 5 mg oral tablet 2 tablet = 10 mg, By Mouth, Daily, # 90 tablet, 1 Refills, Maintenance, 04/02/21 21:23:00 EST, [facility]/pharmacy #2339, 162.5, cm, 01/29/21 12:38:00 EST, Height, 103, kg, 04/10/20 11:20:00 EST, Dry Weight Start Date: 04/02/21 Status: Ordered Ventolin HFA 108 mcg/inh inhalation aerosol with adapter 2 puffs, Inhalation, Daily, PRN NEEDED FOR WHEEZING, for 90 days, # 54 each, 1 Refills, Physician Stop, [facility] [id number], 162.5, cm, 01/29/21 12:38:00 EST, Height, 103, [...] chronic(Confirmed) Active CHF (congestive heart failur e) (ABZN66-09% on echo 2019)(Confirmed) Active Continuous opioid dependence(Confirmed) [...] Clinical Service Informant Atrial fibrillation Discharge Diagnosis 06/03/21 Asthma Discharge Diagnosis 06/03/21 Thrush Discharge Diagnosis 06/03/21 Vital Signs Most recent to oldest [Reference Range]: 1 Height 160 cm (06/02/21 1:26 PM) Weight 108.3 kg (06/02/21 1:26 PM) Oxygen Saturation [94-100 %] 97 % (06/02/21 1:26 PM) Pulse Rate [55-90 bpm] 57 bpm (06/02/21 1:26 PM) Body Mass Index [18.5-24.99] 42.3 *>HHI* (06/02/21 1:26 PM) Blood Pressure [90-138/55-84 mm Hg] 126/ 78mm Hg (06/02/21 1:26 PM) Blood pressure sites Arm, left (06/02/21 1:26 PM) Social History Social History Type Response Smoking Status 5-9 cigarettes (betw een 1/4 to 1/2 pack)/day in last 30 days; Other: Started at 23 years old; entered on: 01/18/20 Sex
--- OUTSIDE RECORDS SUMMARY | 2023-08-02 08:40 | XMS_ITS | Continuity of Care Document ---
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 no contraindications per patient 5Admin Note: [facility] 6Admin Note: [employer],[place] 7Admin Note: Novaritis Medications ARIPiprazole 5 mg oral tablet 1, tablet, By Mouth, Daily, TO BE COMBINED WITH THE CITALOPRAM THERAPY, # 90 tablet, Refills 0, Route to Pharmacy Electronically, [facility], 160, cm, 06/02/21 13:26:00 EDT, Height, 103, kg, 04/10/20 11:20:00 EST, Dry Weight Start Date: 06/03/21 Status: Ordered aspirin 81 mg oral delayed release tablet 81 mg, By Mouth, Daily, # 30 tablet, Refills 11, Tot. Refills 11, Maintenance, 06/12/21 9:27:00 EDT, Route to Pharmacy Electronically, [facility], Partial fill upon patient request [...] Mouth, Daily, # 90 tablet, 1 Refills, [facility] 70124, 162.5, cm, 01/29/21 12:38:00 EST, Height, 103, [...] tablet, Refills 1, Route to Pharmacy Electronically, [facility] [address]471, 162.5, cm, 01/29/21 12:38:00 EST, Height, 103, [...] of lasix that day and call your licensing court magistrate's office for a... Start Date: 06/12/21 Status: Ordered Lipitor 80 mg oral tablet 1 tablet = 80 mg, By Mouth, Daily at bedtime, # 30 tablet, 11 Refills, Maintenance, 06/12/21 9:27:00 EDT, Tablet, [facility], Partial fill upon patient request if the prescription is for a schedule II opioid drug., 157.48, cm, 06/10/21 1... Start Date: 06/12/21 Status: Ordered lisinopril 5 mg oral tablet 5 mg, 1, tablet, By Mouth, Daily, # 30 tablet, Refills 11, Tot. Refills 11, Maintenance, 07/03/21 14:52:00 EDT, [id number], Partial fill upon patient requestif the prescription is for a schedule II opioid kal... Start Date: 07/03/21 Status: Ordered Metoprolol Succinate ER 25 mg oral tablet, extended release 1 tablet, By Mouth, Daily, # 30 tablet, 1 Refills, Maintenance, 06/12/21 9:27:00 EDT, [facility], 157.48, cm, 06/10/21 17:04:00 EDT, Height, 111, kg, 06/10/21 15:06:00 EDT, Dry Weight Start Date: 06/12/21 Status: Ordered morphine 15 mg/8 to 12 hr oral tablet, extended release 1 tablet = 15 mg, By Mouth, Every 8 hours, PRN Pain , Moderate, On substance agreement evaluated every 3 to 6 months, # 84 tablet, 0 Refills, Maintenance, 06/25/21 16:52:00 EDT, [facility]/pharmacy #2339, [...] 5 Refills, Maintenance, 06/09/21 15:31:00 EDT, Tablet, [facility]/pharmacy [...] chronic(Confirmed) Active CHF (congestive heart failur e) (QWPW00-17% on echo 2019)(Confirmed) Active Continuous opioid dependence(Confirmed) [...]
--- OUTSIDE RECORDS SUMMARY | 2023-08-02 08:40 | XMS_ITS | Continuity of Care Document ---
Author Organization [facility] Address [address] [place] [id number]- Care Team Providers Care Reliability Technicians Name Role Phone Jose Martinez MD Primary Care Physician [phone] Encounter [facility] Date(s): 12/09/20 - 01/08/21 [facility] [address] [place] [id number] Allergies, Adverse Reactions, Alerts Substance Reaction [...] 1Result Comment: 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 no contraindications per patient 5Admin Note: [employer] [facility] 6Admin Note: [employer],[place] 7Admin Note: Novaritis Medications Abilify 5 mg oral tablet 5 mg, 1, tablet, By Mouth, Daily, to be combined with the citalopram therapy, # 90 tablet, Refills 0, Tot. Refills 0, Maintenance, 07/20/20 19:50:00 EDT, Route to Pharmacy Electronically, [facility]/pharmacy #[id number], 162.5, cm, 05/15/20 10:27:00 EST, Height, 1... Start Date: 07/20/20 Status: Ordered Ativan 0.5 mg oral tablet 1 tablet = 0.5 mg, By Mouth, 3 times a day, PRN anxiety, # 90 tablet, 2 Refills, Maintenance, 10/14/20 13:39:00 EDT, Tablet, [facility]/pharmacy #2339, 162.5, cm, 05/15/20 10:27:00 [...] tablet, 1 Refills, Maintenance, 10/28/20 14:21:00 EDT, [facility]/pharmacy#2339, 162.5, cm, 05/15/20 10:27:00 EST, [...] 0 Refills, Maintenance, 12/09/20 13:25:00 EDT, Tablet, [facility]/pharmacy #2339, parital fill upon patient request, 162.5, cm, 05/15/20 1... Start Date: 12/09/20 Status: Ordered Dulera 100 mcg-5 mcg/inh inhalation aerosol 2 puffs, Inhalation, 2 times a day, # 13 Unknown, 11 Refills, Maintenance, 07/22/20 7:52:00 EDT, [facility], 30, INHALE 2 PUFFS TWICE A DAY, 162.5, cm, 05/15/20 10:27:00 EST, Height, 103, kg, 04/10/20 11:20:00 EST, Dry Weight Start Date: 07/22/20 Status: Ordered ferrous sulfate 325 mg oral enteric coated tablet 1, tablet, By Mouth, 2 times a day, # 180 tablet, Refills 1, Tot. Refills 0, Maintenance, 10/17/20 7:27:00 EDT, Route to Pharmacy Electronically, [facility] 12748, 162.5, cm, 05/15/20 10:27:00 EST, Height, 103, kg, 04/10/20 11:20:00 EST, Dry Weight Start Date: 10/17/20 Status: Ordered lisinopril 10 mg oral tablet 1, tablet, By Mouth, Daily, # 90 tablet, Refills 3, Route to Pharmacy Electronically, [facility] 20742, 162.5, cm, 05/15/20 10:27:00 EST, Height, 103, kg, 04/10/20 11:20:00 EST, Dry Weight Start Date: 11/13/20 Status: Ordered Metoprolol Succinate ER 25 mg oral tablet, extended release 1 tablet, By Mouth, Daily, # 90 tablet, 1 Refills, Maintenance, 07/22/20 7:32:00 EDT, [facility] [address]758, 162.5, cm, 05/15/20 10:27:00 EST, Height, 103, kg, 04/10/20 11:20:00 EST, Dry Weight Start Date: 07/22/20 Status: Ordered morphine 15 mg/8 to 12 hr oral tablet, extended release 1 tablet = 15 mg, By Mouth, Every 8 hours, PRN Pain , Moderate, On substance agreement evaluated every 3 to 6 months, # 90 tablet, 0 Refills, Maintenance, 12/09/20 13:25:00 EDT, [facility]/pharmacy #[id number], parital fill upon patient request, 162.5, cm, 05/15... Start Date: 12/09/20 Stop Date: 01/08/21 Status: Ordered morphine 30 mg/8 to 12 hr oral tablet, extended release 1 tablet = 30 mg, By Mouth, 3 times a day, OPIATE AGREEMENT evaluated every 3 to 6 months, # 84 tablet, 0 Refills, Maintenance, 12/09/20 13:25:00 EDT, [facility]/pharmacy #2339, may [...] EDT, Height Start Date: 08/25/19 Status: Ordered [facility] use with inhaler [employer] [facility] use with inhaler, See Instructions, [...] tablet, 3 Refills, Maintenance, 10/17/20 12:35:00 EDT, [facility], 162.5, cm, 05/15/20 10:27:00 EST, Height, 103, [...] tablet, 1 Refills, Maintenance, 09/02/20 8:48:00 EDT, [facility] 1948[facility], 162.5, cm, 05/15/20 10:27:00 EST, Height, 103, kg, 04/10/20 11:20:00 EST, Dry Weight Start Date: 09/02/20 Status: Ordered Problem List Condition Effective Dates Status Health Status Inform ant Asthma(Confirmed) Active Atrial fibrillation(Confirmed) Active Back pain(Confirmed) 1 Active Major depression, chronic(Confirmed) Active CHF (congestive heart failur e) (COTO28-96% on echo 2019)(Confirmed) Active Continuous opioid dependence(Confirmed) [...]
--- NOTE | 2023-08-02 10:01 | A.OFFVIS_ITS ---
VS Expanded 08/02/23 10:30 Height 5 ft 1 in Weight 294 lb 8 oz BMI 55.6 Body Fat % 53.4 Body Fat Mass 157.4 Fat Free Mass 137.4 Visceral Fat Rating 23 Body Water % 33.1 Body Water Mass 97.4 Basal Metabolic Rate/Score 1,991 Intake Visit Reasons: TV Revision SWL BMI 55.7 Allergies hospiital tape Allergy (Unknown, Uncoded 08/02/23 10:03) Rash nebutol Allergy (Uncoded 08/02/23 10:04) Difficulty Breathing Medication List - Last Reconciled 08/02/23 by Chandra Agustin MD albuterol sulfate 90 mcg/actuation (Ventolin HFA) 2 puffs inhalation Q6H PRN amlodipine-celecoxib 10-200 mg 1 tab PO DAILY apixaban (Eliquis) 5 mg PO BID aripiprazole 5 mg PO DAILY aspirin (Adult Low Dose Aspirin) 81 mg PO DAILY citalopram 20 mg PO DAILY furosemide (Lasix) 20 mg PO DAILY lorazepam 0.5 mg PO BEDTIME PRN metoprolol succinate ER 150 mg PO DAILY mometasone-formoterol 100-5 mcg/actuation (Dulera) 2 puffs inhalation BID ropinirole 0.25 mg PO DAILY sacubitril-valsartan 24-26 mg (Entresto) 1 tab PO BID spironolactone 25 mg PO DAILY HPI HPI TV Revision SWL BMI 55.7: Details: Start time: 9.58am, End time: 10.58am ?I spent 50 minutes speaking with the patient on the phone plus an additional 10 minutes reviewing and updating records for a total of 60 minutes HPI Comments Details: Previous weight loss efforts: Lap band (lowest weight: 230lbs Wakes up: 8am, Sleeps: 12am Breakfast: skips Lunch:11.30am (cheese and crackers, sandwich) Dinner: 4-5pm (chicken, potatoes, salad) Snacks: 9am (granola bar or cheese), 1pm (crackers), 6pm (fruit or cereal) Exercise: has a home treadmill Fluids: Coffee: 2 cups/day (cream and sugar), tea: none, soda: none, juice: <1/wk, ETOH: none PFSH Medical History (Updated 05/13/24 @ 10:18 by Chandra Agustin MD) GERD (gastroesophageal reflux disease) Depression Anxiety Restless leg syndrome DJD (degenerative joint disease) CHF (congestive heart failure) Atrial fibrillation Myocardial infarct CAD (coronary artery disease) Hypertension Sleep apnea Morbid obesity Surgical History (Updated 06/15/23 @ 07:43 by Niya Ruelas CMA) History of hip surgery Hx of cholecystectomy Hx of laparoscopic gastric banding Family History (Updated 06/15/23 @ 07:45 by Niya Ruelas CMA) Maternal Grandfather Colon cancer Social History (Updated 06/15/23 @ 07:44 by Niya Ruelas CMA) Patient Tobacco Use Status: Former Tobacco user Quit Date: 2022 Tobacco use type: Cigarette Telehealth Telehealth Telehealth Platform: Telephone Location of provider rendering services: practice address Location of patient: address on file Patient Identification confirmed using: Name, : Yes Telehealth method: voice only Patient verbally consented to treatment: Yes Patient verbally consented to billing insurance company: Yes Patient informed of any privacy concerns related to visit: Yes Minutes spent on Phone/Video with Pt.: 60 Assessment & Plan Assessment & Plan (1) Morbid obesity: Code(s): E66.01 - Morbid (severe) obesity due to excess calories Category: Medical Plan: 1.? Plan for lap band removal sleeve gastrectomy. If diaphragmatic or ventral hernias are present at time of surgery, these will be repaired laparoscopically as well. Risks and complications were discussed in detail including possible conversion to an open procedure, anastomotic leak, bleeding requiring transfusion, small bowel obstruction, , DVT and pulmonary embolism, cardiac, or pulmonary complications, as custodial complications such as anastomotic ulcer, insufficient weight loss and vitamin deficiencies. I emphasized the importance of close follow-up, adherence to instructions and good communication. 2. Nutritional counseling. Start with 2 CELEBRATE REBUILD protein (buy at [facility] [employer]) shakes (ONE scoop EACH in 8oz low fat unsweetened almond milk each) at 9am-11am and 12pm-2pm, 1 protein bar (CELEBRATE protein bars, buy at [facility]) at 3pm-5pm, dinner at 6pm (8 forks of protein and 8 forks of salad/vegetables) AND one more protein bar after dinner at 8pm-10pm. If hungry, you can have another HALF protein bar at 11pm-12am. So you do 2 protein shakes, 2 to 2.5 protein bars and one meal per day. Meal to include lean meat (beef, fish, pork, turkey, chicken), or german yogurt, or egg whites, or beans with a salad with olive oil and fruits (berries, pears, apples, kiwi). Avoid salt, breads, potatoes, rice, pasta, desserts. 3. Each shake would be drunk slowly, like coffee in a period of 2 hours. 4. Cut each bar in 4 pieces and eat each piece in 30min ?to make each bar last 2 hours. 5. I emphasized the importance of measuring accurately the food portion and measure it when serving the food in plate 6. The meal portions include 8 full-size forks of meat and 8 full-size forks of salad. You always eat the meat portion but you can replace up to 4 forks for salad/vegetables with rice, potatoes or pasta, or a fruit ?if you like. The less you do it the better weight loss will be. 7. One full-size fork is what it can be scooped on the fork without falling aside and not what can be bit with the fork. Use regular forks like those you find in a typical restaurant. 8.? Please send me weight measurements as soon as possible and then once a week. Always include your diet and exercise plan. 9. Start treadmill with an incline of 0.0 and speed of 2.0mph. Increase incline by 1 every 3 min to a max incline of 6.0, stay 3min at 6.0 and then return to 0.0 and repeat same steps until calorie goal is met. Goal is to burn 2000 calories per week on exercise, which means either 300 calories daily. 10. Goal is to lose at least 1.5-2lbs per week 11. Goal to lose 10% of your weight before surgery, which is about 29lbs. Ultimate weight goal: 265lbs before surgery 12. Please follow the diet plan exactly without any change. If you don't like something about the plan or you feel hungry you need to communicate with me so I can help you revise the plan. You should not change the plan yourself. Orders: Orders Insulin Today E66.01 - Morbid (severe) obesity due to excess calories, G47.30 - Sleep apnea, unspecified, I10 - Essential (primary) hypertension, I25.10 - Atherosclerotic heart disease of [place] coronary artery without angina pectoris, I48.91 - Unspecified atrial fibrillation, I50.9 - Heart failure, unspecified, K21.9 - Gastro-esophageal reflux disease without esophagitis H Pylori Breath Test Today E66.01 - Morbid (severe) obesity due to excess calories, G47.30 - Sleep apnea, unspecified, I10 - Essential (primary) hypertension, I25.10 - Atherosclerotic heart disease of [place] coronary artery without angina pectoris, I48.91 - Unspecified atrial fibrillation, I50.9 - Heart failure, unspecified, K21.9 - Gastro-esophageal reflux disease without esophagit is Complete Blood Count Auto Diff Today E66.01 - Morbid (severe) obesity due to excess calories, G47.30 - Sleep apnea, unspecified, I10 - Essential (primary) hypertension, I25.10 - Atherosclerotic heart disease of [place] coronary artery without angina pectoris, I48.91 - Unspecified atrial fibrillation, I50.9 - Heart failure, unspecified, K21.9 - Gastro-esophageal reflux disease without esophagitis IRON PROFILE Today E66.01 - Morbid (severe) obesity due to excess calories, G47.30 - Sleep apnea, unspecified, I10 - Essential (primary) hypertension, I25.10 - Atherosclerotic heart disease of [place] coronary artery without angina pectoris, I48.91 - Unspecified atrial fibrillation, I50.9 - Heart failure, unspecified, K21.9 - Gastro-esophageal reflux disease without esophagitis Comprehensive Met. Panel Today E66.01 - Morbid (severe) obesity due to excess calories, G47.30 - Sleep apnea, unspecified, I10 - Essential (primary) hypertension, I25.10 - Atherosclerotic heart disease of [place] coronary artery without angina pectoris, I48.91 - Unspecified atrial fibrillation, I50.9 - Heart failure, unspecified, K21.9 - Gastro-esophageal reflux disease without esophagitis Vitamin B12 and Folate Today E66.01 - Morbid (severe) obesity due to excess calories, G47.30 - Sleep apnea, unspecified, I10 - Essential (primary) hypertension, I25.10 - Atherosclerotic heart disease of [place] coronary artery without angina pectoris, I48.91 - Unspecified atrial fibrillation, I50.9 - Heart failure, unspecified, K21.9 - Gastro-esophageal reflux disease without esophagitis Zinc Today E66.01 - Morbid (severe) obesity due to excess calories, G47.30 - Sleep apnea, unspecified, I10 - Essential (primary) hypertension, I25.10 - Atherosclerotic heart disease of [place] coronary artery without angina pectoris, I48.91 - Unspecified atrial fibrillation, I50.9 - Heart failure, unspecified, K21.9 - Gastro-esophageal reflux disease without esophagitis Vitamin B1 Today E66.01 - Morbid (severe) obesity due to excess calories, G47.30 - Sleep apnea, unspecified, I10 - Essential (primary) hypertension, I25.10 - Atherosclerotic heart disease of [place] coronary artery without angina pectoris, I48.91 - Unspecified atrial fibrillation, I50.9 - Heart failure, unspecified, K21.9 - Gastro-esophageal reflux disease without esophagitis TSH reflex Free T4 Today E66.01 - Morbid (severe) obesity due to excess calories, G47.30 - Sleep apnea, unspecified, I10 - Essential (primary) hypertension, I25.10 - Atherosclerotic heart disease of [place] coronary artery without angina pectoris, I48.91 - Unspecified atrial fibrillation, I50.9 - Heart failure, unspecified, K21.9 - Gastro-esophageal reflux disease without esophagitis XR chest 2V Today E66.01 - Morbid (severe) obesity due to excess calories, G47.30 - Sleep apnea, unspecified, I10 - Essential (primary) hypertension, I25.10 - Atherosclerotic heart disease of [place] coronary artery without angina pectoris, I48.91 - Unspecified atrial fibrillation, I50.9 - Heart failure, unspecified, K21.9 - Gastro-esophageal reflux disease without esophagitis FL upper GI w air Today E66.01 - Morbid (severe) obesity due to excess calories , G47.30 - Sleep apnea, unspecified, I10 - Essential (primary) hypertension, I25.10 - Atherosclerotic heart disease of [place] coronary artery without angina pectoris, I48.91 - Unspecified atrial fibrillation, I50.9 - Heart failure, unspecified, K21.9 - Gastro-esophageal reflux disease without esophagitis Hemoglobin A1c Today E66.01 - Morbid (severe) obesity due to excess calories, G47.30 - Sleep apnea, unspecified, I10 - Essential (primary) hypertension, I25.10 - Atherosclerotic heart disease of [place] coronary artery without angina pectoris, I48.91 - Unspecified atrial fibrillation, I50.9 - Heart failure, unspecified, K21.9 - Gastro-esophageal reflux disease without esophagitis Lipid Panel Today E66.01 - Morbid (severe) obesity due to excess calories, G47.30 - Sleep apnea, unspecified, I10 - Essential (primary) hypertension, I25.10 - Atherosclerotic heart disease of [place] coronary artery without angina pectoris, I48.91 - Unspecified atrial fibrillation, I50.9 - Heart failure, unspecified, K21.9 - Gastro-esophageal reflux disease without esophagitis C Reactive Protein Today E66.01 - Morbid (severe) obesity due to excess calories, G47.30 - Sleep apnea, unspecified, I10 - Essential (primary) hypertension, I25.10 - Atherosclerotic heart disease of [place] coronary artery without angina pectoris, I48.91 - Unspecified atrial fibrillation, I50.9 - Heart failure, unspecified, K21.9 - Gastro-esophageal reflux disease without esophagitis Vitamin A Today E66.01 - Morbid (severe) obesity due to excess calories, G47.30 - Sleep apnea, unspecified, I10 - Essential (primary) hypertension, I25.10 - Atherosclerotic heart disease of [place] coronary artery without angina pectoris, I48.91 - Unspecified atrial fibrillation, I50.9 - Heart failure, unspecified, K21.9 - Gastro-esophageal reflux disease without esophagitis Ferritin Today E66.01 - Morbid (severe) obesity due to excess calories, G47.30 - Sleep apnea, unspecified, I10 - Essential (primary) hypertension, I25.10 - Atherosclerotic heart disease of [place] coronary artery without angina pectoris, I48.91 - Unspecified atrial fibrillation, I50.9 - Heart failure, unspecified, K21.9 - Gastro-esophageal reflux disease without esophagitis Vitamin D 25-OH Total Today E66.01 - Morbid (severe) obesity due to excess calories, G47.30 - Sleep apnea, unspecified, I10 - Essential (primary) hypertension, I25.10 - Atherosclerotic heart disease of [place] coronary artery without angina pectoris, I48.91 - Unspecified atrial fibrillation, I50.9 - Heart failure, unspecified, K21.9 - Gastro-esophageal reflux disease without esophagitis US abdomen comp w elastography Today E66.01 - Morbid (severe) obesity due to excess calories, G47.30 - Sleep apnea, unspecified, I10 - Essential (primary) hypertension, I25.10 - Atherosclerotic heart disease of [place] coronary artery without angina pectoris, I48.91 - Unspecified atrial fibrillation, I50.9 - Heart failure, unspecified, K21.9 - Gastro-esophageal reflux disease without esophagitis ECG 12 lead EKG Today E66.01 - Morbid (severe) obesity due to excess calories, G47.30 - Sleep apnea, unspecified, I10 - Essential (primary) hypertension, I25.10 - Atherosclerotic heart disease of [place] coronary artery without angina pectoris, I48.91 - Unspecified atrial fibrillation, I50.9 - Heart failure, unspecified, K21.9 - Gastro-esophageal reflux disease without esophagitis Referrals Nutrition/Dietitian Referral E66.01 - Morbid (severe) obesity due to excess calories, G47.30 - Sleep apnea, unspecified, I10 - Essential (primary) hypertension, I25.10 - Atherosclerotic heart disease of [place] coronary artery without angina pectoris, I48.91 - Unspecified atrial fibrillation, I50.9 - Heart failure, unspecified, K21.9 - Gastro-esophageal reflux disease without esophagitis Pulmonary Medicine Referral G47.30 - Sleep apnea, unspecified Behavioral Health Referral E66.01 - Morbid (severe) obesity due to excess calories, G47.30 - Sleep apnea, unspecified, I10 - Essential (primary) hypertension, I25.10 - Atherosclerotic heart disease of [place] coronary artery without angina pectoris, I48.91 - Unspecified atrial fibrillation, I50.9 - Heart failure, unspecified, K21.9 - Gastro-esophageal reflux disease without esophagitis
[2023-08-02 10:30] VITALS: BMI 55.6
== END 2023-08-02 10:58 | disposition home or self-care (01) ==
LOC: HO.HBS 08:24
PROVIDERS: PCP Internal Medicine; Visit Provider Surgery
DX: E66.01 Morbid (severe) obesity due to excess calories (principal); Z68.43 Body mass index [BMI] 50.0-59.9, adult
CPT/HCPCS: 99443

== ENCOUNTER → 2023-08-02 08:23 | Outpatient (BNVA) | payer OTHER, SELFPAY | PROVIDERS: PCP Internal Medicine; Visit Provider Surgery ==

== ENCOUNTER 2023-08-09 10:07 | Outpatient (REF) | payer OTHER, SELFPAY ==
--- NOTE | 2023-08-09 10:39 | ECG_ITS ---
Test Reason : E66.01 Blood Pressure : / mmHG Vent. Rate : 063 BPM Atrial Rate : 000 BPM P-R Int : 000 ms QRS Dur : 086 ms QT Int : 412 ms P-R-T Axes : 000 026 015 degrees QTc Int : 421 ms Atrial fibrillation Abnormal ECG No previous ECGs available Referred By: Chandra Agustin Electronically Signed By:Jeffry Gavin
[2023-08-09 11:27] LABS: Estimated Average Glucose 114 mg/dL; Hemoglobin A1c % 5.6 % (<6.0)
[2023-08-09 11:38] LABS: Cholesterol 97 mg/dL (<200); HDL Cholesterol 36 mg/dL (>40); LDL Cholesterol Calculated 41 mg/dL (<100); Triglycerides 104 mg/dL (<150)
[2023-08-09 11:55] LABS: Ferritin 84 ng/mL (10-250); TSH reflex Free T4 3.01 uIU/mL (0.32-4.0); Vitamin D 25-OH Total 13.6 ng/mL (>30)
[2023-08-12 05:53] LABS: Vitamin A 44 mcg/dL (38-98)
[2023-08-13 16:39] LABS: Vitamin B1 11 nmol/L (8-30)
== END 2023-08-09 10:08 | disposition home or self-care (01) ==
LOC: HO.10HDL 10:07
PROVIDERS: Visit Provider Surgery
DX: E66.01 Morbid (severe) obesity due to excess calories (principal); G47.30 Sleep apnea, unspecified; I25.10 Atherosclerotic heart disease of native coronary artery without angina pectoris; I48.91 Unspecified atrial fibrillation; I11.0 Hypertensive heart disease with heart failure; I50.9 Heart failure, unspecified; K21.9 Gastro-esophageal reflux disease without esophagitis
CPT/HCPCS: 36415; 80061; 82306; 82728; 83036; 84425; 84443; 84590; 86140; 93005

== ENCOUNTER → 2023-08-09 10:30 | Outpatient (REF) | payer OTHER, SELFPAY ==
--- NOTE | ~2023-08-09 | XR_ITS ---
EXAMINATION: XR CHEST CLINICAL INFORMATION: Morbid severe obesity due to excess calories, preoperative chest x-ray. COMPARISON: None available. TECHNIQUE: 2 views of the chest were obtained. FINDINGS: There is no gross pneumothorax. Heart size is normal. Moderate degenerative changes in the thoracic spine. Trace bilateral pleural effusions. Mild asymmetric elevation of the left lung base. XR/XR chest 2V IMPRESSION: Trace bilateral pleural effusions.
== END ==
LOC: HO.CARD 10:30
PROVIDERS: Visit Provider Surgery
DX: E66.01 Morbid (severe) obesity due to excess calories (principal); G47.30 Sleep apnea, unspecified; I25.10 Atherosclerotic heart disease of native coronary artery without angina pectoris; I48.91 Unspecified atrial fibrillation; I11.0 Hypertensive heart disease with heart failure; I50.9 Heart failure, unspecified; K21.9 Gastro-esophageal reflux disease without esophagitis
CPT/HCPCS: 71046

== ENCOUNTER → 2023-08-09 10:39 | Outpatient (BNV) | payer OTHER, SELFPAY | PROVIDERS: Visit Provider Internal Medicine Cardiovascular Disease | DX: I48.91 Unspecified atrial fibrillation (principal); E66.01 Morbid (severe) obesity due to excess calories | CPT/HCPCS: 93010 ==

== ENCOUNTER 2023-08-17 09:35 | Outpatient (REF) | payer OTHER, SELFPAY ==
--- NOTE | ~2023-08-17 | US_ITS ---
EXAMINATION: US COMPLETE ABDOMEN WITH LIVER ELASTOGRAPHY CLINICAL INFORMATION: Obesity. COMPARISON: None available. TECHNIQUE: Real-time imaging of the abdominal viscera. Noninvasive ultrasound liver fibrosis assessment is performed using Anu ElastPQ point quantification shear wave elastography (2D-SWE) with a C5-2 MHz transducer. Multiple elastography samples are obtained. FINDINGS: PANCREAS: The visualized pancreatic head and body are normal in appearance. The remainder of the pancreas is obscured from visualization by the overlying bowel gas. ABDOMINAL AORTA: The proximal, middle, and distal aortic segments are normal in caliber. INFERIOR VENA CAVA: Visualized portions are normal. LIVER: The liver demonstrates normal size, contour and echogenicity. No focal lesion or intrahepatic biliary duct dilatation. The right lobe measures 15.4 cm in length. The left lobe measures 8.3 cm in length. Portal flow is towards the liver (hepatopetal). Shear wave liver elastography median stiffness is 1.89 m/s (reference: normal median stiffness is 1.3 m/s or less). IQR/median stiffness to assess sampling precision is 0.35 (reference: good quality data set is IQR/median stiffness of 0.15 or less). GALLBLADDER: Status post cholecystectomy. COMMON BILE DUCT: Normal in caliber measuring 0.4 cm in diameter. RIGHT KIDNEY: No hydronephrosis. No renal calculi. A benign mid renal 3.4 cm Bosniak class I renal cyst is noted which requires no additional imaging or follow up. No solid renal masses are seen.. The kidney measures 10.5 cm in maximum dimension. LEFT KIDNEY: No hydronephrosis. No renal calculi. Two benign Bosniak class I renal cysts are noted, the largest measuring 2.2 cm which require no additional imaging or follow-up. No solid renal masses are seen. The kidney measures 11.1 cm in maximum dimension. SPLEEN: Normal. The spleen measures 10.7 cm in maximum dimension. FREE FLUID: None. US/US abdomen comp w elastography IMPRESSION: 1. Echogenic liver suggesting steatosis. 2. Liver Elastography: Although measurements are suggestive of compensated advanced chronic liver disease, there is statistical variability of the sampling which decreases accuracy. REFERENCE: Society of Radiologists in Ultrasound Liver Stiffness Thresholds (2019): LIVER STIFFNESS THRESHOLDS: *Liver Stiffness equal or less than 1.3 m/s: High probability of being normal. *Liver Stiffness less than 1.7 m/s: In the absence of other known clinical signs, rules out compensated advanced chronic liver disease. *Liver Stiffness 1.7-2.1 m/s: Suggestive of compensated advanced chronic liver disease but need further test for confirmation. *Liver Stiffness over 2.1 m/s: Rules in compensated advanced chronic liver disease. *Liver Stiffness over 2.4 m/s: Suggestive of clinically significant portal hypertension. QUALITY OF DATA SET: *IQR/Median value equal or less than 0.15 implies a quality data set. *IQR/Median value over 0.15 implies a poor quality data set. SIGNIFICANT CHANGE FROM PRIOR EXAM: Significant change if liver stiffness measurement is 10% or greater from prior exam. OTHER CONSIDERATIONS: The stage of liver fibrosis may be overestimated in the setting of acute hepatitis, liver inflammation, elevated liver function tests, hepatic vascular congestion, obstructive cholestasis, non-fasting state, and infiltrative diseases such as amyloidosis and lymphoma. In some patients with NAFLD, the liver stiffness thresholds for compensated advanced chronic liver disease may be lower. In causes other than viral hepatitis and NAFLD, liver stiffness thresholds are not well established.
== END 2023-08-17 09:36 | disposition home or self-care (01) ==
LOC: HO.US 09:35
PROVIDERS: PCP Internal Medicine; Visit Provider Surgery
DX: E66.01 Morbid (severe) obesity due to excess calories (principal); G47.30 Sleep apnea, unspecified; I25.10 Atherosclerotic heart disease of native coronary artery without angina pectoris; I48.91 Unspecified atrial fibrillation; I11.0 Hypertensive heart disease with heart failure; I50.9 Heart failure, unspecified; K21.9 Gastro-esophageal reflux disease without esophagitis
CPT/HCPCS: 76700; 76981

== ENCOUNTER 2023-08-20 09:39 | Outpatient (AMB) | payer OTHER, SELFPAY ==
--- OUTSIDE RECORDS SUMMARY | 2023-08-20 09:41 | XMS_ITS | Continuity of Care Document ---
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 no contraindications per patient 5Admin Note: [employer] manufacturers. no contraindications per patient 6Admin Note: [employer] [facility] 7Admin Note: [employer],[place] 8Admin Note: Novaritis Medications Albuterol (Eqv-ProAir HFA) [...] 04/01/23 21:26:00 EST, Route to Pharmacy Electronically, [facility]/pharmacy #[id number], 157.48, cm, 11/17/22 16:49:00 EDT, Height, 111,... Start Date: 04/01/23 Status: Ordered aspirin 81 mg oral delayed release tablet 81 mg, By Mouth, Daily, # 30 tablet, Refills 11, Tot. Refills 11, Maintenance, 06/12/21 9:27:00 EDT, Route to Pharmacy Electronically, [facility] 3, Partial fill upon patient request if the prescription is for a schedule II opioid drug., 1... Start Date: 06/12/21 Stop Date: 06/07/22 Status: Ordered Ativan 0.5 mg oral tablet 1 tablet = 0.5 mg, By Mouth, Daily at bedtime, PRN as needed for anxiety, # 30 tablet, 5 Refills, Maintenance, 05/25/23 10:30:00 EST, Tablet, [facility]/pharmacy #2339, Partial fill upon patient request if the prescription is for a schedule II opioid drug.,... Start Date: 05/25/23 Status: Ordered atorvastatin 80 mg oral tablet 1 tablet, By Mouth, Daily at bedtime, # 90 tablet, 1 Refills, Maintenance, 10/12/22 12:22:00 EDT, [facility], 157.48, cm, 08/28/22 9:39:00 EDT, Height, 111, [...] Refills, Maintenance, 04/28/23 7:10:00 EST, [facility], 157.48, cm, 04/19/23 8:28:00 EST, Height, 111, [...] # 90 tablet, 1 Refills, [facility], 90, TAKE 1 TABLET BY MOUTH EVERY [...] each, 11 Refills, Maintenance, 07/08/22 11:55:00 EDT, [facility] STORE [facility], 30, INHALE 2 PUFFS TWICE A DAY, 157.48, cm, 05/18/22 9:48:00 EST, Height, 111, kg, 06/10/21 15:06:00 EDT, Dry Weight Start Date: 07/08/22 Status: Ordered Eliquis 5 mg oral tablet 1 tablet = 5 mg, By Mouth, 2 times a day, # 180 tablet, 11 Refills, Maintenance, 06/25/23 9:17:00 EDT, Tablet, [facility]/pharmacy #2339, Partial fill upon patient request if the prescription is for a schedule II opioid drug., 154, cm, 06/25/23 9:05:00 EDT,... Start Date: 06/25/23 Status: Ordered ferrous sulfate 325 mg oral enteric coated tablet 1, tablet, By Mouth, 2 times a day, # 180 tablet, Refills 1, Maintenance, 07/26/22 7:26:00 EDT, Route to Pharmacy Electronically, [facility], 157.48, cm, 05/18/22 9:48:00 EST, Height, 111, kg, 06/10/21 15:06:00 EDT, Dry Weight Start Date: 07/26/22 Status: Ordered furosemide 20 mg oral tablet 20 mg, 1, tablet, By Mouth, Daily, PRN, ONLY NEEDED for leg swelling or > 5 lbs weight gain, # 30 tablet, Refills 0, Tot. Refills 0, Maintenance, Other, 06/25/23 9:21:00 EDT, Route to Pharmacy Electronically, [facility]/pharmacy #2339, Partial fill upon p... Start Date: [...] Refills, Maintenance, 06/25/23 9:15:00 EDT, ER Tablet, [facility]/pharmacy #2339, Dose increase, 154, cm, 06/25/23 9:05:00 EDT, Height Start Date: 06/25/23 Status: Ordered Metoprolol Succinate ER 200 mg oral tablet, extended release 1 tablet, By Mouth, Daily, # 90 tablet, 0 Refills, Maintenance, 07/19/23 15:33:00 EDT, [facility] STORE 8[facility], 154, cm, 06/25/23 9:05:00 EDT, Height Start Date: 07/19/23 Status: Ordered rOPINIRole 0.25 mg oral tablet 3 tablet = 0.75 mg, By Mouth, Daily at bedtime, # 270 tablet, 3 Refills, Maintenance, 07/20/23 10:38:00 EDT, [facility]/pharmacy #2339, 154, cm, 06/25/23 9:05:00 EDT, Height Start Date: 07/20/23 Status: Ordered sacubitril-valsartan 97 mg-103 mg oral tablet 1 tablet, By Mouth, 2 times a day, # 180 tablet, 1 Refills, Maintenance, 07/21/23 13:19:00 EDT, Tablet, [facility]/pharmacy #2339, This is an increased dose, 1 tablet By Mouth 2 times a day,x90 days, 154, cm, 06/25/23 9:05:00 EDT, Height Start Date: 07/21/23 Stop Date: 01/17/24 Status: Ordered spironolactone 25 mg oral tablet 25 mg, 1, tablet, By Mouth, Daily, # 90 tablet, Refills 3, Tot. Refills 3, Maintenance, 05/27/23 11:09:00 EST, Route to Pharmacy Electronically, [facility]/pharmacy #2339, 157.48, cm, 05/21/23 12:45:00 EST,Height, 111, kg, 06/10/21 15:06:00 EDT, Dry Weight Start Date: 05/27/23 Status: Ordered Problem List Condition Confirmation Course Effective Dates Status H ealth Status Informant Asthma Confirmed Active Atrial fibrillation Confirmed Active Back pain 1 Confirmed Active Cardiomyopathy Confirmed Active Major depression, chronic Confirmed Active CHF (congestive heart failure) (AEBQ67-98% on echo 2019) Confirmed Active Coronary artery [...] Radha Villela Position: [facility] RN Supv Member Role: Primary [...] Sims RN Position: [facility] RN Member Role: Primary Care Nurse Name: Jo Ann Stubbs PharmD Position: [facility] Associate Professional Member Role: [employer] Provider Address: Address: [address] [place] [address] Name: Anne Gonzalez RN Position: [facility] RN Member Role: Primary Care Nurse Name: Mckayla Wilcox RN Position: [facility] SN RN Member Role: Primary Care Nurse Name: Simin Chen RN Position: [facility] RN Member Role: Primary Care Nurse Name: Jose Martinez MD Position: [facility] Physician - Primary Care Member Role: PCP Address: Address: [address] [place] [address]- Name: Aleks Merchant RN Position: S RN Member Role: Primary Care Nurse Name: Genet Bowman RN Position: [facility] RN Member Role: Primary Care Nurse Name: Ilana Burns RN Position: S RN Member Role: Primary Care Nurse Care Team Related Persons Name: KASHIFTUTU Address: [address] [address] Name: JANET CONNOR Address: home [address] [place] [id number]
--- OUTSIDE RECORDS SUMMARY | 2023-08-20 09:44 | XMS_ITS | Continuity of Care Document ---
Author Organization [facility] Adult Address [address] [place] [address]- Care Team Providers Care Optical Brightener Maker Helper Name Role Phone Jose Martinez MD Primary Care Physician [facility]21 - 11/23/21 [facility] [address] [place] [address]- Allergies, Adverse Reactions, Alerts Substance Reaction Severity [...] Given 1Result Comment: [facility]:[id number] 2Result Comment: [01/19/2018] [id number] 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 no contraindications per patient 5Admin Note: [employer] [facility] 6Admin Note: [employer],[place] 7Admin Note: Novaritis Medications Albuterol (Eqv-ProAir HFA) [...] 9:00:00 EDT, Route to Pharmacy Electronically, [facility]/pharmacy #2339, 157.48, cm, 0... Start Date: 08/06/21 Stop Date: 08/01/22 Status: Ordered aspirin 81 mg oral delayed release tablet 81 mg, By Mouth, Daily, # 30 tablet, Refills 11, Tot. Refills 11, Maintenance, 06/12/21 9:27:00 EDT, Route to Pharmacy Electronically, [facility] 3, Partial fill upon patient request if the prescription is for a schedule II opioid drug., 1... Start Date: 06/12/21 Stop Date: 06/07/22 Status: Ordered Ativan 0.5 mg oral tablet 1 tablet = 0.5 mg, By Mouth, Daily at bedtime, PRN as needed for anxiety, # 30 tablet, 1 Refills, Maintenance, 08/06/21 9:02:00 EDT, Tablet, [facility]/pharmacy #2339, Partial fill upon patient request if the prescription is for a schedule II opioid drug., 1... Start Date: 08/06/21 Status: Ordered citalopram 40 mg oral tablet 1 tablet, By Mouth, Daily, for 90 days, # 90 tablet, 3 Refills, Physician Stop 08/01/22 9:01:00 EDT, 08/06/21 9:01:00 EDT, [facility]/pharmacy #2339, 157.48, cm, 08/05/21 14:31:00 EDT, Height, [...] EVERY DAY, # 90 tablet, 1 Refills, [facility], 90, TAKE 1 TABLET BY MOUTH EVERY [...] a day, # 60 tablet, 11 Refills, [facility] 95[facility], 30, TAKE 1 TABLET BY MOUTH TWICE [...] 9:01:00 EDT, Route to Pharmacy Electronically, [facility]/pharmacy #2339, 157.48, cm, 08/05/21 14:31:00 EDT, Height, 111,... Start Date: 08/06/21 Stop Date: 08/01/22 Status: Ordered Lasix 20 mg oral tablet 20 mg, 1, tablet, By Mouth, Daily, PRN, # 30 tablet, Refills 1, Tot. Refills 1, Maintenance, Other,11/07/21 8:28:00 EDT, Route to Pharmacy Electronically, [facility]/pharmacy #2339, Partial fill upon patient request if the prescription is for a schedule II... Start Date: 11/07/21 Stop Date: 01/06/22 Status: Ordered Lipitor 80 mg oral tablet 1 tablet = 80 mg, By Mouth, Daily at bedtime, # 30 tablet, 11 Refills, Maintenance, 06/12/21 9:27:00 EDT, Tablet, [facility] 3, Partial fill upon patient request if the prescription is for a schedule II opioid drug., 157.48, cm, 06/10/21 1... Start Date: 06/12/21 Status: Ordered metoprolol 100 mg oral tablet, extended release 100 mg, 1, tablet, By Mouth, Daily, # 90 tablet, Refills 3, Tot. Refills 3, Maintenance, 09/11/21 12:08:00 EDT, Route to Pharmacy Electronically, [facility]/pharmacy #2339, 157.48, cm, 08/12/21 10:44:00 EDT, Height, [...] 0 Refills, Maintenance, 08/19/21 14:03:00 EDT, [facility]/pharmacy #2339, parital fill upon patient request, 157.48, [...] EVERY NIG, # 90 tablet, 1 Refills, [facility] STORE 33543, 157.48, cm, 08/12/21 10:44:00 EDT, Height, 111, kg, 06/10/21 15:06:00 EDT, Dry Weight Start Date: 10/31/21 Status: Ordered warfarin 5 mg oral tablet 0.5 tablet = 2.5 mg, By Mouth, Daily, Goal INR 2-3 Please follow up with your coumadin clinic, # [id number], 0 Refills, Maintenance, 06/12/21 9:27:00 EDT, Tablet, [facility], Partial fill upon patient request if the prescription is for a... Start Date: 06/12/21 Status: Ordered Problem List Condition Effective Dates Status Health Status Inform ant Asthma(Confirmed) Active Atrial fibrillation(Confirmed) Active Back pain(Confirmed) 1 Active Major depression, chronic(Confirmed) Active CHF (congestive heart failur e) (YKIP40-08% on echo 2019)(Confirmed) Active Continuous opioid dependence(Confirmed) [...] Team Personnel Name: Jose Martinez MD Address: [address] [place] [id number]
--- OUTSIDE RECORDS SUMMARY | 2023-08-20 09:44 | XMS_ITS | Continuity of Care Document ---
Author Organization [facility] Adult Address [address] [place] [address]- Care Team Providers Care Tank Crewmember Name Role Phone Michelle HICKEY, Jose Primary Care Physician [facility] 07[facility]19[facility]23 - 08/18/23 [facility] [address] [place] [address]- Allergies, Adverse Reactions, Alerts Substance Reaction Severity [...] inactive(oldterm) 8 01/21/09 Given 1Result Comment: [facility]:[id number] 2Result Comment: [facility]:[id number] 3Result Comment: [01/19/2018] [id number] 4Admin Note: [employer] manufacturers. no contraindications per patient 5Admin Note: [employer] manufacturers. no contraindications per patient 6Admin Note: [employer] [facility] 7Admin Note: [employer],[place] 8Admin Note: Novaritis Medications Albuterol (Eqv-ProAir HFA) [...] 04/01/23 21:26:00 EST, Route to Pharmacy Electronically, [facility]/pharmacy #2339, 157.48, cm, 11/17/22 16:49:00 EDT, Height, 111,... Start Date: 04/01/23 Status: Ordered aspirin 81 mg oral delayed release tablet 81 mg, By Mouth, Daily, # 30 tablet, Refills 11, Tot. Refills 11, Maintenance, 06/12/21 9:27:00 EDT, Route to Pharmacy Electronically, [facility] 3, Partial fill upon patient request if the prescription is for a schedule II opioid drug., 1... Start Date: 06/12/21 Stop Date: 06/07/22 Status: Ordered Ativan 0.5 mg oral tablet 1 tablet = 0.5 mg, By Mouth, Daily at bedtime, PRN as needed for anxiety, # 30 tablet, 5 Refills, Maintenance, 05/25/23 10:30:00 EST, Tablet, [facility]/pharmacy #2339, Partial fill upon patient request if the prescription is for a schedule II opioid drug.,... Start Date: 05/25/23 Status: Ordered atorvastatin 80 mg oral tablet 1 tablet, By Mouth, Daily at bedtime, # 90 tablet, 1 Refills, Maintenance, 10/12/22 12:22:00 EDT, [facility], 157.48, cm, 08/28/22 9:39:00 EDT, Height, 111, [...] Refills, Maintenance, 04/28/23 7:10:00 EST, [facility], 157.48, cm, 04/19/23 8:28:00 EST, Height, 111, [...] # 90 tablet, 1 Refills, [facility], 90, TAKE 1 TABLET BY MOUTH EVERY [...] each, 11 Refills, Maintenance, 07/08/22 11:55:00 EDT, [facility] STORE 03232, 30, INHALE 2 PUFFS TWICE A DAY, 157.48, cm, 05/18/22 9:48:00 EST, Height, 111, kg, 06/10/21 15:06:00 EDT, Dry Weight Start Date: 07/08/22 Status: Ordered Eliquis 5 mg oral tablet 1 tablet = 5 mg, By Mouth, 2 times a day, # 180 tablet, 11 Refills, Maintenance, 06/25/23 9:17:00 EDT, Tablet, [facility]/pharmacy #2339, Partial fill upon patient request if the prescription is for a schedule II opioid drug., 154, cm, 06/25/23 9:05:00 EDT,... Start Date: 06/25/23 Status: Ordered ferrous sulfate 325 mg oral enteric coated tablet 1, tablet, By Mouth, 2 times a day, # 180 tablet, Refills 1, Maintenance, 07/26/22 7:26:00 EDT, Route to Pharmacy Electronically, [facility], 157.48, cm, 05/18/22 9:48:00 EST, Height, 111, kg, 06/10/21 15:06:00 EDT, Dry Weight Start Date: 07/26/22 Status: Ordered furosemide 20 mg oral tablet 20 mg, 1, tablet, By Mouth, Daily, PRN, ONLY NEEDED for leg swelling or > 5 lbs weight gain, # 30 tablet, Refills 0, Tot. Refills 0, Maintenance, Other, 06/25/23 9:21:00 EDT, Route to Pharmacy Electronically, [facility]/pharmacy #2339, Partial fill upon p... Start [...] Refills, Maintenance, 06/25/23 9:15:00 EDT, ER Tablet, [facility]/pharmacy #2339, Dose increase, 154, cm, 06/25/23 9:05:00 EDT, Height Start Date: 06/25/23 Status: Ordered Metoprolol Succinate ER 200 mg oral tablet, extended release 1 tablet, By Mouth, Daily, # 90 tablet, 0 Refills, Maintenance, 07/19/23 15:33:00 EDT, [facility] 850[facility], 154, cm, 06/25/23 9:05:00 EDT, Height Start Date: 07/19/23 Status: Ordered rOPINIRole 0.25 mg oral tablet 3 tablet = 0.75 mg, By Mouth, Daily at bedtime, # 270 tablet, 3 Refills, Maintenance, 07/20/23 10:38:00 EDT, [facility]/pharmacy #2339, 154, cm, 06/25/23 9:05:00 EDT, Height Start Date: 07/20/23 Status: Ordered sacubitril-valsartan 97 mg-103 mg oral tablet 1 tablet, By Mouth, 2 times a day, # 180 tablet, 1 Refills, Maintenance, 07/21/23 13:19:00 EDT, Tablet, [facility]/pharmacy #2339, This is an increased dose, 1 tablet By Mouth 2 times a day,x90 days, 154, cm, 06/25/23 9:05:00 EDT, Height Start Date: 07/21/23 Stop Date: 01/17/24 Status: Ordered spironolactone 25 mg oral tablet 25 mg, 1, tablet, By Mouth, Daily, # 90 tablet, Refills 3, Tot. Refills 3, Maintenance, 05/27/23 11:09:00 EST, Route to Pharmacy Electronically, [facility]/pharmacy #2339, 157.48, cm, 05/21/23 12:45:00 EST,Height, 111, kg, 06/10/21 15:06:00 EDT, Dry Weight Start Date: 05/27/23 Status: Ordered Problem List Condition Confirmation Course Effective Dates Status H ealth Status Informant Asthma Confirmed Active Atrial fibrillation Confirmed Active Back pain 1 Confirmed Active Cardiomyopathy Confirmed Active Major depression, chronic Confirmed Active CHF (congestive heart failure) (MYEP48-33% on echo 2019) Confirmed Active Coronary artery [...] Villela Position: [facility] RN Supv Member Role: Primary Care Nurse Name: Nichole Coates RN Position: [facility] SN RN Member Role: Primary Care Nurse Name: Ksenia Herzog RN Position: [facility] RN Member Role: Primary Care Nurse Name: Leatha Walsh RN Position: [facility] SN RN Member Role: Primary Care Nurse Name: Milagro Sims RN Position: [facility] RN Member Role: Primary Care Nurse Name: Jo Ann Stubbs PharmD Position: [facility] Associate Professional Member Role: [employer] Provider Address: Address: [address] [place] [address] Name: Anne Gonzalez RN Position: [facility] RN Member Role: Primary Care Nurse Name: Mckayla Wilcox RN Position: [facility] SN RN Member Role: Primary Care Nurse Name: Simin Chen RN Position: [facility] RN Member Role: Primary Care Nurse Name: Jose Martinez MD Position: [facility] Physician - Primary Care Member Role: PCP Address: Address: [address] [place] [id number]- Name: Aleks Merchant RN Position: S RN Member Role: Primary Care Nurse Name: Genet Bowman RN Position: [facility] RN Member Role: Primary Care Nurse Name: Ilana Burns RN Position: S RN Member Role: Primary Care Nurse Care Team Related Persons Name: KASHIFTUTU Address: [address] [address] Name: JANET CONNOR Address: home [address] [place] [id number]
--- NOTE | 2023-08-20 11:15 | A.OFFVIS_ITS ---
VS Expanded 08/20/23 11:21 Height 5 ft 1 in Weight 291 lb 4 oz BMI 55.0 Body Fat % 75 Fat Free Mass 72.9 Visceral Fat Rating 30 Body Water % 17.2 Basal Metabolic Rate/Score 1,083 Intake Visit Reasons: TV Pre Op Lap Band Removal 08/26/23 Allergies hospiital tape Allergy (Unknown, Uncoded 08/20/23 11:15) Rash nebutol Allergy (Uncoded 08/20/23 11:15) Difficulty Breathing Medication List - Last Reconciled 08/20/23 by Chandra Agustin MD albuterol sulfate 90 mcg/actuation (Ventolin HFA) 2 puffs inhalation Q6H PRN amlodipine-celecoxib 10-200 mg 1 tab PO DAILY apixaban (Eliquis) 5 mg PO BID aripiprazole 5 mg PO DAILY aspirin (Adult Low Dose Aspirin) 81 mg PO DAILY cholecalciferol (vitamin D3) 125 mcg PO DAILY citalopram 20 mg PO DAILY furosemide (Lasix) 20 mg PO DAILY lorazepam 0.5 mg PO BEDTIME PRN metoprolol succinate ER 150 mg PO DAILY mometasone-formoterol 100-5 mcg/actuation (Dulera) 2 puffs inhalation BID ropinirole 0.25 mg PO DAILY sacubitril-valsartan 24-26 mg (Entresto) 1 tab PO BID spironolactone 25 mg PO DAILY HPI HPI TV Pre Op Lap Band Removal 08/26/23: Details: Start time: 11.10am, End time: 11.30am ?I spent 15 minutes speaking with the patient on the phone plus an additional 5 minutes reviewing and updating records for a total of 20 minutes HPI Comments Details: The patient has a malfunctioning lap band that causes GERD and needs to be removed [facility] Medical History (Updated 08/16/23 @ 17:38 by Chandra Agustin MD) GERD (gastroesophageal reflux disease) Depression Anxiety Restless leg syndrome DJD (degenerative joint disease) CHF (congestive heart failure) Atrial fibrillation Myocardial infarct CAD (coronary artery disease) Hypertension Sleep apnea Morbid obesity Surgical History (Updated 06/15/23 @ 07:43 by Niya Ruelas CMA) History of hip surgery Hx of cholecystectomy Hx of laparoscopic gastric banding Family History (Updated 06/15/23 @ 07:45 by Niya Ruelas CMA) Maternal Grandfather Colon cancer Social History (Updated 06/15/23 @ 07:44 by Niya Ruelas CMA) Patient Tobacco Use Status: Former Tobacco user Tobacco use type: Cigarette Telehealth Telehealth Telehealth Platform: Telephone Location of provider rendering services: practice address Location of patient: address on file Patient Identification confirmed using: Name, : Yes Telehealth method: voice only Patient verbally consented to treatment: Yes Patient verbally consented to billing insurance company: Yes Patient informed of any privacy concerns related to visit: Yes Minutes spent on Phone/Video with Pt.: 20 Assessment & Plan Assessment & Plan (1) Morbid obesity: Code(s): E66.01 - Morbid (severe) obesity due to excess calories Category: Medical Plan: 1. Plan for lap band removal. Risks include bleeding, infection and inability to remove the band. 2. Stop aspirin and Eliquis as of today. Do not re-start before we communicate about them. 3. Please do the preop blood work today or tomorrow. No need to fast. 4. Start Fondaparinux injections one per day, today and until Wednesday08/24/23. Do not take on 08/25/23 or 08/26/23 5. Stop food and bars and continue a liquid diet from tomorrow until the day before surgery. Nothing to drink or eat after midnight towards 08/26/23 Orders: Orders Complete Blood Count Auto Diff Today E66.01 - Morbid (severe) obesity due to excess calories, I10 - Essential (primary) hypertension Prothrombin Time INR Today E66.01 - Morbid (severe) obesity due to excess calories, I10 - Essential (primary) hypertension Comprehensive Met. Panel Today E66.01 - Morbid (severe) obesity due to excess calories, I10 - Essential (primary) hypertension Type and Screen Today E66.01 - Morbid (severe) obesity due to excess calories, I10 - Essential (primary) hypertension Partial Thromboplastin Time Today E66.01 - Morbid (severe) obesity due to excess calories, I10 - Essential (primary) hypertension Medications: New fondaparinux Start today 08/20/23 and take the last one on Wednesday08/24/23. Do not take on 08/25/23 or 08/26/23 2.5 mg (0.5 mL) subcut Q24H 5 mL 1RF I48.91 - Unspecified atrial fibrillation
[2023-08-20 11:21] VITALS: BMI 55.0
== END 2023-08-20 11:30 | disposition home or self-care (01) ==
LOC: HO.HBS 09:39
PROVIDERS: Visit Provider Surgery
DX: E66.01 Morbid (severe) obesity due to excess calories (principal)
CPT/HCPCS: 99499

== ENCOUNTER → 2023-08-20 09:39 | Outpatient (BNVA) | payer OTHER, SELFPAY | PROVIDERS: Visit Provider Surgery ==

== ENCOUNTER 2023-08-26 08:10 | Day surgery (SDC) | payer OTHER, SELFPAY ==
[2023-08-21 11:14] LABS: MANUAL DIFF FLAG NO
[2023-08-21 11:20] LABS: Basophils Absolute Auto 0.1 X10*3/uL (0.0-0.2); Basophils Percent Auto 0.7 % (0-2); Eosinophils Absolute Auto 0.1 X10*3/uL (0.0-0.4); Eosinophils Percent Auto 1.7 % (0-4); Hematocrit 39.5 % (37.0-47.0); Hemoglobin 12.6 g/dl (12.0-16.0); Imm Gran Abs Auto 0.02 X10*3/uL (0.00-0.03); Imm Gran Pct Auto 0.2 % (0.0-0.4); Lymphocytes Absolute Auto 1.7 X10*3/uL (1.2-4.9); Mean Corpuscular HGB Conc 31.9 g/dl (31.0-35.0); Mean Corpuscular Hemoglobin 28.8 pg (27.0-33.0); Mean Corpuscular Volume 90.2 fL (80.0-98.0); Mean Platelet Volume 10.2 fL (9.4-12.3); Monocytes Absolute Auto 0.5 X10*3/uL (0.1-1.2); Monocytes Percent Auto 6.3 % (2-11); Neutrophils Percent Auto 71.1 % (45-73); Platelet Count 203 X10*3/uL (160-400); Red Blood Count 4.38 X10*6/uL (4.20-5.50); Red Cell Distribution Width 14.1 % (11.0-16.0); White Blood Count 8.4 X10*3/uL (4.8-10.8)
[2023-08-21 11:26] LABS: Prothrombin Time 12.4 SEC (11.1-13.3)
[2023-08-21 11:28] LABS: Partial Thromboplastin Time 29.6 SEC (26.0-36.8)
[2023-08-21 11:42] LABS: Alanine Aminotransferase 10 U/L (0-31); Albumin Level 3.9 g/dL (3.5-5.0); Alkaline Phosphatase 83 U/L (39-117); Anion Gap 13 (12-20); Aspartate Amino Transferase 16 U/L (5-31); Bilirubin Total 0.5 mg/dL (0.0-1.0); Blood Urea Nitrogen 19 mg/dL (9-16); Calcium 9.3 mg/dL (8.4-10.2); Carbon Dioxide 26 mmol/L (22-29); Chloride 105 mmol/L (96-108); Estimated Glomerular Filt Rate > 60; Glucose Random 105 mg/dL (60-115); Iron 60 mcg/dL (30-160); Percent Iron Saturation 20 % (15-50); Potassium 4.6 mmol/L (3.3-5.1); Sodium 139 mmol/L (135-145); Total Iron Binding Capacity 303 mcg/dL (228-428); Total Protein 6.8 g/dL (6.5-8.0); Unsaturated Iron Binding 243 ug/dL
[2023-08-21 11:57] LABS: Insulin 21 uU/mL (2-29)
[2023-08-21 12:10] LABS: Folate 7.6 ng/mL (> or = 4.0); Vitamin B12 362 pg/mL (200-900)
[2023-08-23 10:24] VITALS: BMI 54.8
[2023-08-24 12:18] LABS: Zinc 69 mcg/dL (60-130)
--- NOTE | 2023-08-24 12:40 | P.CONAN_ITS ---
Documented by User: Jo Ann Vogel NP 08/25/23 13:53 HPI - Anesthesia Eval Consult details Narrative: 68yo F for Lap Band Removal Laparosopic, EGD Eliquis for afib, Arixtra bridge Follows [facility] cardiology. Stable at 07/2023 office visit. [facility] CHF clinic. Mixed ischemic/nonischemic cmp. Stable and euvolemic at 06/2023 office visit. Echo pending (to be done 08/25/23) [facility] Active Problems Active Problems: All Active Problems Vitamin D deficiency (Acute) GERD (gastroesophageal reflux disease) (Acute) Depression (Acute) Anxiety (Acute) Restless leg syndrome (Acute) DJD (degenerative joint disease) (Acute) CHF (congestive heart failure) (Acute) Atrial fibrillation (Acute) CAD (coronary artery disease) (Acute) Hypertension (Acute) Sleep apnea (Acute) Morbid obesity (Acute) Past Medical History Medical History Elevated cholesterol History of MRSA infection Back pain COPD (chronic obstructive pulmonary disease) GERD (gastroesophageal reflux disease) Depression Anxiety Restless leg syndrome DJD (degenerative joint disease) CHF (congestive heart failure) Atrial fibrillation Myocardial infarct CAD (coronary artery disease) Hypertension Sleep apnea Morbid obesity Family History Family History Maternal Grandfather Colon cancer Surgical History Surgical History History of hip surgery Hx of cholecystectomy Hx of laparoscopic gastric banding Social History Social History Are you a primary care navigator to a significant other at home: No Do you presently have visiting nurse or other home services: No Patient Tobacco Use Status: Former Tobacco user Tobacco use type: Cigarette Meds Allergies Allergy/AdvReac Type Severity Reaction Status Date / Time hospiital tape Allergy Unknown Rash Uncoded 08/20/23 11:15 nebutol Allergy Difficulty Uncoded 08/20/23 11:15 Breathing Home Medications ?Medication ?Instructions ?Recorded ?Confirmed ?Last Taken ?Type albuterol sulfate 90 mcg/actuation 2 puff inhalation Q6H PRN 06/15/23 08/23/23 08/26/22 History aerosol inhaler (Ventolin HFA) Shortness Of Breath Or Wheezing aripiprazole 5 mg tablet 5 mg PO DAILY 06/15/23 08/23/23 08/26/23 History aspirin 81 mg tablet,delayed 81 mg PO DAILY 06/15/23 08/23/23 08/19/23 History release (Adult Low Dose Aspirin) citalopram 40 mg tablet 40 mg PO DAILY 06/15/23 08/23/23 08/26/23 History furosemide 20 mg tablet (Lasix) 20 mg PO DAILY PRN Weight Gain 06/15/23 08/23/23 Unknown History lorazepam 0.5 mg tablet 0.5 mg PO BEDTIME PRN Insomnia 06/15/23 08/23/23 Unknown History metoprolol succinate 100 mg 200 mg PO BEDTIME 06/15/23 08/23/23 Unknown History tablet,extended release 24 hr mometasone-formoterol HFA 100 2 puff inhalation BID 06/15/23 08/23/23 Unknown History mcg-5 mcg/actuation aerosol inhaler (Dulera) ropinirole 0.25 mg tablet 0.25 mg PO BEDTIME 06/15/23 08/23/23 Unknown History sacubitril 24 mg-valsartan 26 mg 1 tab PO BID 06/15/23 08/23/23 08/26/23 History tablet (Entresto) spironolactone 25 mg tablet 25 mg PO DAILY 06/15/23 08/23/23 Unknown History apixaban 5 mg tablet (Eliquis) 5 mg PO BID 08/02/23 08/23/23 08/19/23 History amlodipine 10 mg tablet 10 mg PO DAILY 08/23/23 08/23/23 08/26/23 History atorvastatin 80 mg tablet 80 mg PO BEDTIME 08/23/23 08/23/23 Unknown History Exam Height,Weight and Vital Signs: Height 5 ft 1 in Weight 131.542 kg Pertinent Lab Results Pertinent Lab Results: Laboratory Tests 08/21/23 08/21/23 11:06 11:12 WBC 8.4 RBC 4.38 Hgb 12.6 Hct 39.5 MCV 90.2 MCH 28.8 MCHC 31.9 RDW 14.1 Plt Count 203 MPV 10.2 Immature Gran % (Auto) 0.2 Neut % (Auto) 71.1 Lymph % (Auto) 20.0 Craig % (Auto) 6.3 Eos % (Auto) 1.7 Baso % (Auto) 0.7 Lymph # (Auto) 1.7 Craig # (Auto) 0.5 Eos # (Auto) 0.1 Baso # (Auto) 0.1 Abs Immat Gran (auto) 0.02 Absolute Neuts (auto) 6.0 Absolute Nucleated RBC 0.000 Nucleated RBC % (auto) 0.0 PT 12.4 INR 1.0 APTT 29.6 Sodium 139 Potassium 4.6 Chloride 105 Carbon Dioxide 26 Anion Gap 13 BUN 19 H Creatinine 0.78 Estim Creat Clear Calc TNP Estimated GFR > 60 Random Glucose 105 Insulin Level 21 Calcium 9.3 Iron 60 TIBC 303 % Saturation 20 Unsat Iron Binding 243 Total Bilirubin 0.5 AST 16 ALT 10 Alkaline Phosphatase 83 Total Protein 6.8 Albumin 3.9 Vitamin B12 362 Folate 7.6 Zinc 69 Blood Type O Negative Antibody Screen NEGATIVE Narrative Narrative: EKG 07/2023 Vent. Rate : 063 BPM Atrial Rate : 000 BPM P-R Int : 000 ms QRS Dur : 086 ms QT Int : 412 ms P-R-T Axes : 000 026 015 degrees QTc Int : 421 ms Atrial fibrillation Abnormal ECG No previous ECGs available ECHO 08/2023 (pending) 05/2021 report on chart Assessment and Plan Assessment Anesthesia Assessment: Chart Reviewed Documented by User: Reny Duggan MD 08/26/23 10:32 HPI - Anesthesia Eval Consult details Narrative: 68yo F for Lap Band Removal Laparosopic, EGD Eliquis for afib, Arixtra bridge Follows [facility] cardiology. Stable at 07/2023 office visit. [facility] CHF clinic. Mixed ischemic/nonischemic cmp. Stable and euvolemic at 06/2023 office visit. Echo pending (to be done 08/25/23) 08/26/23: Echo : LV wall thickness. EF 50-55%. No definite regional WMA. Unable to assess diastolic function due to atrial fibrillation. LA moderately dilated. Mild tethering of MV leaflets. Trace MR. RV systolic function mildly reduced. Right atrium dilated. Trace TR. Compared to 05/28/21 LV systolic function has improved.(25-30%) [facility] Active Problems Active Problems: All Active Problems Vitamin D deficiency (Acute) GERD (gastroesophageal reflux disease) (Acute) Depression (Acute) Anxiety (Acute) Restless leg syndrome (Acute) DJD (degenerative joint disease) (Acute) CHF (congestive heart failure) (Acute) Atrial fibrillation (Acute) CAD (coronary artery disease) (Acute) Hypertension (Acute) Sleep apnea (Acute). Not using CPAP. Waiting to be fitted for nasal/oral device Super Morbid obesity BMI 53.8 Past Medical History Medical History Elevated cholesterol History of MRSA infection Back pain COPD (chronic obstructive pulmonary disease) GERD (gastroesophageal reflux disease) Depression Anxiety Restless leg syndrome DJD (degenerative joint disease) CHF (congestive heart failure) Atrial fibrillation Myocardial infarct CAD (coronary artery disease) Hypertension Sleep apnea Morbid obesity Family History Family History Maternal Grandfather Colon cancer Family history of problems with anesthesia: No Surgical History Surgical History History of hip surgery Hx of cholecystectomy Hx of laparoscopic gastric banding History of Problems with Anesthesia: No Social History Social History Are you a primary care navigator to a significant other at home: No Do you presently have visiting nurse or other home services: No Patient Tobacco Use Status: Former Tobacco user Tobacco use type: Cigarette Meds Allergies Allergy/AdvReac Type Severity Reaction Status Date / Time hospiital tape Allergy Unknown Rash Uncoded 08/20/23 11:15 nebutol Allergy Difficulty Uncoded 08/20/23 11:15 Breathing Home Medications ?Medication ?Instructions ?Recorded ?Confirmed ?Last Taken ?Type albuterol sulfate 90 mcg/actuation 2 puff inhalation Q6H PRN 06/15/23 08/23/23 08/26/22 History aerosol inhaler (Ventolin HFA) Shortness Of Breath Or Wheezing aripiprazole 5 mg tablet 5 mg PO DAILY 06/15/23 08/23/23 08/26/23 History aspirin 81 mg tablet,delayed 81 mg PO DAILY 06/15/23 08/23/23 08/19/23 History release (Adult Low Dose Aspirin) citalopram 40 mg tablet 40 mg PO DAILY 06/15/23 08/23/23 08/26/23 History furosemide 20 mg tablet (Lasix) 20 mg PO DAILY PRN Weight Gain 06/15/23 08/23/23 Unknown History lorazepam 0.5 mg tablet 0.5 mg PO BEDTIME PRN Insomnia 06/15/23 08/23/23 Unknown History metoprolol succinate 100 mg 200 mg PO BEDTIME 06/15/23 08/23/23 Unknown History tablet,extended release 24 hr mometasone-formoterol HFA 100 2 puff inhalation BID 06/15/23 08/23/23 Unknown History mcg-5 mcg/actuation aerosol inhaler (Dulera) ropinirole 0.25 mg tablet 0.25 mg PO BEDTIME 06/15/23 08/23/23 Unknown History sacubitril 24 mg-valsartan 26 mg 1 tab PO BID 06/15/23 08/23/23 08/26/23 History tablet (Entresto) spironolactone 25 mg tablet 25 mg PO DAILY 06/15/23 08/23/23 Unknown History apixaban 5 mg tablet (Eliquis) 5 mg PO BID 08/02/23 08/23/23 08/19/23 History amlodipine 10 mg tablet 10 mg PO DAILY 08/23/23 08/23/23 08/26/23 History atorvastatin 80 mg tablet 80 mg PO BEDTIME 08/23/23 08/23/23 Unknown History Exam Height,Weight and Vital Signs: Height 5 ft 1 in Weight 131.542 kg Vital Signs Temp Pulse Resp BP Pulse Ox O2 Del Method 08/26/23 08:42 97.3 F 65 18 96/49 L 95 Room Air Pertinent Lab Results Pertinent Lab Results: Laboratory Tests 08/21/23 08/21/23 11:06 11:12 WBC 8.4 RBC 4.38 Hgb 12.6 Hct 39.5 MCV 90.2 MCH 28.8 MCHC 31.9 RDW 14.1 Plt Count 203 MPV 10.2 Immature Gran % (Auto) 0.2 Neut % (Auto) 71.1 Lymph % (Auto) 20.0 Craig % (Auto) 6.3 Eos % (Auto) 1.7 Baso % (Auto) 0.7 Lymph # (Auto) 1.7 Craig # (Auto) 0.5 Eos # (Auto) 0.1 Baso # (Auto) 0.1 Abs Immat Gran (auto) 0.02 Absolute Neuts (auto) 6.0 Absolute Nucleated RBC 0.000 Nucleated RBC % (auto) 0.0 PT 12.4 INR 1.0 APTT 29.6 Sodium 139 Potassium 4.6 Chloride 105 Carbon Dioxide 26 Anion Gap 13 BUN 19 H Creatinine 0.78 Estim Creat Clear Calc TNP Estimated GFR > 60 Random Glucose 105 Insulin Level 21 Calcium 9.3 Iron 60 TIBC 303 % Saturation 20 Unsat Iron Binding 243 Total Bilirubin 0.5 AST 16 ALT 10 Alkaline Phosphatase 83 Total Protein 6.8 Albumin 3.9 Vitamin B12 362 Folate 7.6 Zinc 69 Blood Type O Negative Antibody Screen NEGATIVE Airway Mallampati Class: II TM Dist: >3cm Neck ROM: Full Denture: Upper Loose/Missing/Broken Teeth: Yes (Full denture top. Only few teeth bottom. Denies loose or broken) Heart: Irregularly irregular Lungs: Diminished. CTAB Assessment and Plan Assessment Anesthesia Assessment: Anesthesia Plan Discussed and Chart Reviewed Final Anesthetic Review Family History of Problems with Anesthesia: No History of Problems with Anesthesia: No NPO: Yes ASA Class: III Final Preanesthetic Review: No Changes in Pt Med Stat, Meds/Allgs Chart Reviewed, Consent Obtained/Reviewed and Anes Risks/Benef Reviewed Patient Risk: Intermediate Procedure Risk: Intermediate Assessment/Block/Sedation in : Assess/Block/Sedation- Anesthetic Plan Anesthetic Plan: GA Disposition: Standard PACU
[2023-08-26] VITALS (10 sets, daily range): BP systolic 91–118; BP diastolic 49–73; PULSE 55–73; RESP 13–18; TEMP 35.9–36.4; O2SAT 93–99; BMI 53.8
[2023-08-26] MEDS: Lactated Ringers 1,000 ML 50 ML IVCONT (09:08)
--- NOTE | 2023-08-26 11:24 | P.BOP_ITS ---
Brief Operative Note Date of Service: 08/26/23 Pre-op diagnosis: Lap band malfunction with comorbidities (see below) Post-op diagnosis: same Procedure: PROCEDURE: Esophago-gastroscopy, laparoscopic removal of gastric band and accessories, laparoscopic lysis of adhesions INDICATIONS: This is a 68 year-old female with a BMI of 55.7kg/m2 and associated comorbid conditions as described previously. After appropriate workup the patient was electively scheduled for laparoscopic, possibly open removal of gastric band and accessories. The risks and complications of the procedure were discussed with the patient in advance, particularly the possibility of ; pulmonary embolism; leak; bleeding; GERD; cardiac, pulmonary, or renal complications.. The patient understood all the risks, and was in agreement to proceed with surgery. DESCRIPTION OF PROCEDURE: After informed consent was obtained from the patient, the patient was given preoperative antibiotics, and was transferred to the operating room. After successful induction of general anesthesia, pneumatic compressive devices were placed on both lower extremities. An upper endoscopy was performed next. The oropharynx and esophagus appeared to be within normal limits. There was a diaphragmatic hernia present of moderate size consistent with the findings of the preoperative upper GI. The stomach was entered. Then after all fluid and air were suctioned and the stomach was fully d ecompressed, the scope was withdrawn and secured in the mid esophagus. The patient was then prepped and draped in the usual sterile manner, and abdominal access was established at the right upper quadrant with the Brayden technique. A 12 mm blunt port was inserted, and the abdomen was insufflated with CO2 to a pressure of 15 mmHg. Under direct visualization, additional ports were placed, specifically two 5 mm Versi-step ports to the left upper quadrant, and a 5 mm Versi-Step port to the right upper quadrant. 1% lidocained plan was used to infiltrate all port sites as well as all fascia defects. Following that, the patient was placed in a steep reverse Trendelenburg position. An additional 5 mm port was placed to the right flank for the Mediflex retractor that was used to retract the left lobe of the liver. There were adhesions in the abdomen from previous lap band and open cholecystectomy involving the omentum and the falciform ligament. Those were lysed with the Thunderbeat. The patient has a lap gastric band. It was identified and using the Thunderbeat, the capsule was opened and the band was freed from surrounding tissues. Once it was adequately mobile, it was cut and was removed from the Brayden port along with the intra-abdominal portion of the tubing system. ?An upper endoscopy was performed. There was no narrowing at the GE junction. The scope was easily advanced all the way to the pylorus which was clearly visualized. There was no narrowing anywhere or stomach injury.. At that point the gastroscope was withdrawn from the patient?s mouth while we were decompressing the bowel and the stomach from any remaining air. There was no bleeding from the spleen. The Mediflex retractor was removed, and the undersurface of the liver was inspected and there was no bleeding. The patient was placed in supine position. I was able to remove the band's port through the Brayden incision, without requiring a separate incision. Using cautery the subcutaneous tissues were divi ded until the port was identified. This particular port was secured with sutures. Those were cut. All sutures were removed. The remaining tubing system was delivered along with the port. I closed the fascial defect of the 12 mm port site with a figure of eight #1 Polysorb suture. Then 30cc Ropivacaine plain with 10 mg of Dexamethasone were used to infiltrate the fascial closure as well as all skin incisions. A total of 7ml Zynrelef was applied in the Brayden wound. At this point, the abdomen was deflated, all ports were removed under direct vision, and no bleeding was noted from any of the port sites. The skin incisions were irrigated with saline and were closed with 4-0 absorbable monofilament sutures. Steri-Strips and OpSites were used to cover all incisions. The patient was extubated and was transferred in stable condition to the recovery room for further care. I was present and performed all zhang parts of the procedure. Mr. Vega was the early childhood teacher assistant. There were no residents to assist with this case. Bhargav Agustin MD, PhD, FACS Surgeon: Chandra Agustin MD Anesthesia: GETA, local and other (TAP block and 7ml Zynrelef) Was an Automobile Service Writer used for this Procedure?: No Automobile Service Writer: Pan Vega Estimated blood loss (mL): 10 Urine output (mL): 0 (No Santos to record output) Pathology: other (Lap band, tubing and port) Condition: stable Disposition: PACU
--- NOTE | 2023-08-26 11:29 | P.PNGS_ITS ---
Subjective Subjective Date of Service: 08/26/23 Interval history: Feels well. Mild incisional pain. She is tolerating phase 1 bariatric diet Physical Exam 2 Vital Signs: Vital Signs: Last Vital Signs Temp 97.3 F 08/26/23 08:42 Pulse 65 08/26/23 08:42 Resp 18 08/26/23 08:42 BP 96/49 L 08/26/23 08:42 Pulse Ox 95 08/26/23 08:42 O2 Del Method Room Air 08/26/23 08:42 BMI result Body Mass Index 53.8 GI: Inspection: Yes normal to inspection, Yes incision (clean, dry and intact) and Yes obesity Palpation (GI): Soft to palpation Extrem: Right lower extremity: normal to inspection (no calf tenderness) L eft lower extremity: normal to inspection (no calf tenderness) Objective Data Active Medications Albuterol Sulfate (Albuterol Sulfate (0.083%) 2.5 Mg/3 Ml Vial.Neb) 2.5 mg INHALE ONCE PRN PRN Reason: Shortness of Breath/Wheezing Lactated Ringer's (Lr) 1,000 mls @ 50 mls/hr IVCONT .Q20H [facility] Last Admin: 08/26/23 09:08 Dose: 50 mls/hr Documented By: ISIDRO Lactated Ringer's (Lr) 1,000 mls @ 100 mls/hr IVCONT .Q10H [facility] Labs 08/21/23 11:12 08/21/23 11:12 Procedures Date of Service Date of Service: 08/26/23 Progress Note: A&P Assessment and plan (1) Morbid obesity: Status: Acute Assessment and Plan: s/p laparoscopic band removal and accessories Doing well Will check am labs and if OK the patient will be discharged home (2) Sleep apnea: Status: Acute (3) Hypertension: Status: Acute (4) CAD (coronary artery disease): Status: Acute (5) Atrial fibrillation: Status: Acute (6) CHF (congestive heart failure): Status: Acute (7) DJD (degenerative joint disease): Status: Acute (8) Restless leg syndrome: Status: Acute (9) Depression: Status: Acute (10) Anxiety: Status: Acute (11) Hx of laparoscopic gastric banding: Status: Acute Time Spent With Patient Time: Total time managing care of this patient today ____ minutes. Quality Stroke Does the patient have a stroke diagnosis?: No VTE Prior VTE?: No VTE Risk Level:: Surgical - moderate VTE Device Contraindication: N/A - Device Ordered VTE Drug Contraindication: Treatment Not Indicated
--- NOTE | 2023-08-26 13:35 | P.DS_ITS ---
DS: Providers Provider Date of Service: 08/27/23 Primary care physician: Jose Martinez MD DS: Diagnosis Discharge Diagnosis (1) Morbid obesity: Status: Acute (2) Sleep apnea: Status: Acute (3) Hypertension: Status: Acute (4) CAD (coronary artery disease): Status: Acute (5) Atrial fibrillation: Status: Acute (6) CHF (congestive heart failure): Status: Acute (7) DJD (degenerative joint disease): Status: Acute (8) Restless leg syndrome: Status: Acute (9) Depression: Status: Acute (10) Anxiety: Status: Acute (11) Hx of laparoscopic gastric banding: Status: Acute DS: Summary Hospital Course Hospital Course: ADMITTING DIAGNOSIS: morbid obesity, chf, af, mi, cad, htn, levar, anxiety, dep ression, restless leg ? DISCHARGE DIAGNOSIS: same, s/p laparoscopic gastric band removal ? PAST SURGICAL HISTORY: gastric band, cholecystectomy, hip surgery ? PROCEDURE: upper endoscopy, laparoscopic gastric band removal ? DISCHARGE SUMMARY: ? History of Present Illness: ? The patient is a?68 year-old woman with a BMI of?55.6 kg/m2 and associated co- morbidities as described above. The patient had extensive work-up,lost??5.5 lbs preoperatively and was electively scheduled for laparoscopic, possible open removal of gastric band. Risks and complications of the surgery were discussed w ith the patient in advance, particularly the possibility of , pulmonary embolism, anastomotic leak, bleeding, bowel injury, GERD, cardiac, renal or pulmonary complications. The patient understood all the risks and was in agreement with the surgical plan. ? Hospital Course: ? The patient underwent an uneventful laparoscopic gastric band removal on the day of admission. Postoperatively, the patient was transferred to the surgical floor. The patient received IV Acetaminophen and IV dilaudid for pain control. Patient was started on bariatric phase 1 diet POD #1. On postoperative day one, the patient was feeling well without nausea, vomiting, fevers, or tachycardia. The patient had some mild incisional pain and the abdomen was soft. ? On the morning of postoperative day one, the patient was continued on 1 ounce of water or ice every half hour. During the day, the patient did fairly well, having some incisional pain, but able to ambulate adequately and to tolerate liquids well. ? Since the patient is doing well, we decided that the patient was ready to be discharged. The patient was given instructions to follow-up with me next week and to call my office for any fever over 101, persistent abdominal pain, nausea, vomiting, GERD, symptoms of DVT such as calf tenderness, or leg swelling, or pulmonary embolism such as chest pain or shortness of breath. The patient was also instructed to drink 40-60 ounces of liquids per day using the 1-ounce cups. The patient had been given prescriptions for Tylenol for pain, Zofran prn for nausea, and pantoprazole and carafate previously. The patient was encouraged to ambulate and use the incentive spirometer. The patient was allowed to shower, but no baths, and encouraged to stay active at home. All of these instructions were given to the patient personally. All questions were answered and the patient understood all instructions, the instructions were also given to the patient in print. Time Attestation Total time managing care of this patient today: 25 mintues. Discharge Coordination Time (in mins): 25 Quality: Safe Use of Opioids Does Pt have an Active Cancer Diagnosis on the Problem List?: No Quality: Stroke Does the patient have a stroke diagnosis?: No Physical Exam Vital Signs: Vital Signs: Last Vital Signs Temp 97.3 F 08/26/23 08:42 Pulse 65 08/26/23 08:42 Resp 18 08/26/23 08:42 BP 96/49 L 08/26/23 08:42 Pulse Ox 95 08/26/23 08:42 O2 Del Method Room Air 08/26/23 08:42 BMI result Body Mass Index 53.8 DS: Data Data Completed and Pending Pending studies at discharge: Pending at discharge 08/26/23 12:56 Surgical [PTH] Routine Discharge Plan Discharge Patient Disposition: Home, Self-Care Referrals: Jose Martinez MD [Primary Care Provider] - 1 Week Discharge Medications: New fondaparinux 2.5 mg/0.5 mL syringe 2.5 mg subcut DAILY Qty: 1 0RF Continued cholecalciferol (vitamin D3) 125 mcg (5,000 unit) capsule 125 mcg PO DAILY Qty: 90 0RF amlodipine 10 mg tablet 10 mg PO DAILY atorvastatin 80 mg tablet 80 mg PO BEDTIME Entresto 97-103 mg tablet 1 tab PO BID ropinirole 0.25 mg tablet 0.75 mg PO BEDTIME spironolactone 25 mg tablet 25 mg PO DAILY citalopram 40 mg tablet 40 mg PO DAILY aripiprazole 5 mg tablet 5 mg PO DAILY metoprolol succinate 100 mg tablet extended release 24 hr 200 mg PO BEDTIME lorazepam 0.5 mg tablet 0.5 mg PO BEDTIME PRN (Reason: Insomnia) furosemide [Lasix] 20 mg tablet 20 mg PO DAILY PRN (Reason: Weight Gain) albuterol sulfate [Ventolin HFA] 90 mcg/actuation HFA aerosol inhaler 2 puff inhalation Q6H PRN (Reason: Shortness Of Breath Or Wheezing) Dulera 100-5 mcg/actuation HFA aerosol inhaler 2 puff inhalation BID Held aspirin [Adult Low Dose Aspirin] 81 mg tablet,delayed release (DR/EC) 81 mg PO DAILY Hold Instructions: until discussed with Dr Agustin Eliquis 5 mg tablet 5 mg PO BID Hold Instructions: until discussed with Dr Agustin Discharge Orders: Discharge Order (Routine); Ordered 08/27/23 Ordered By: Pan Vega Activity on Discharge: No heavy lifting Activity Restrictions/Additional Instructions: No tub baths, sex or returning to work until discussed at first post op appointment. No exercise, alcohol, tobacco or illegal drug use. Continue to use incentive spirometer hourly while awake. Walk in home for 5- 10 minutes every 2 hours during the first week. Follow all instructions in the bariatric handbook and call with any questions.Discharge Instructions 1. Please call your doctor or come back to the emergency room should any new symptoms arise. 2. You will receive a courtesy call from [facility] 24-48 hours after discharge. 3. Activity: abstain from alcohol, practice limited stair climbing, no bending, no driving, no exercise, no illicit substances, no lifting, no sex, no tub bath, no work. 4. Diet: continue as discussed with Dr. Agustin. 5. Dressing Change/Wound Care: Your incision is covered by clear bandages and guaze underneath. If the area is tender, you may apply an ice pack for short intervals (no more than 20 minutes on, followed by at least 20 minutes off). Do not apply heat. Do not use creams, lotions, or topical antibiotics unless instructed to do so by your surgeon. These can cause infection or allergic reaction. 6. Call your doctor if: - Your temperature exceeds 101.5 F - You experience excessive pain or swelling - You have an unexpected reaction to medication - You have excessive bleeding - You experience continued vomiting/nausea - Your incision begins to separate - Your incision shows signs of infection such as increased redness, swelling, excessive pain, heat, or drainage (light blood or clear fluid is normal) 7. General instructions: No lifting greater than 5 lbs for 1 week and not more than 20lbs the next 3?weeks. No driving until seen at the office in 5-7 days after surgery. If you do not move your bowels in the next 2 days, please tell?Dr. Agustin. Please walk around your home every hour or two to prevent blood clots from forming in your legs. You do not need to wake from sleeping to walk. Please sleep in a bed or couch to prevent kinking at the hips and knees. 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 You may shower, no hot tubs, baths or swimming pools.?Please follow the post op diet instructions you are?given by Dr Agustin? and text me daily at 5-6pm for an update.?If you have any issues or concerns or questions please communicate this to him via text.? The Celebrate shakes have all of the bariatric vitamins you need if you consume these shakes. If you are drinking other protein shakes, you will need to purchase the Celebrate multivitamins and calcium that are available in the hospital gift shop on the first floor of the main hospital.??Do not take anything without first discussing with Dr Agustin. Please make sure you are consuming at least 40 ounces of fluids per day starting the?day AFTER your discharge from the hospital. Always drink 1-2 ml per minute using the 5ml?syringe. If you drink faster you may experience?bloating,?gas pain, burping, nausea or heartburn. In that case please slow down your pace and use the syringe to?understand better the?proper?pace and volume of drinking. Do not hesitate to contact the office with any questions at . The patient's medical history has been reviewed and they are considered low risk for post op DVT and therefore DVT prophylaxis is not considered necessary. Travel after surgery was reviewed. The patient has not disclosed any travel plans during the first 30 days after surgery and they have been advised that within the first 30 days after surgery any bus, plane, train or car travel over 2 hours in duration is contraindicated due to the possibility of developing blood clots from immobility. Any travel, needs to include periods of ambulation of 10 minutes in duration every 2 hours.? The patient was instructed to discuss any plans for travel during this period with their bariatric surgeon. Print Language: Luxembourger
[2023-08-26 15:17] LABS: Hematocrit 38.2 % (37.0-47.0)
[2023-08-26 15:21] LABS: Anion Gap 11 (12-20); Blood Urea Nitrogen 21 mg/dL (9-16); Calcium 8.7 mg/dL (8.4-10.2); Carbon Dioxide 26 mmol/L (22-29); Chloride 107 mmol/L (96-108); Creatinine Clr Calc Pharmacy 85.7; Estimated Glomerular Filt Rate > 60; Glucose Random 114 mg/dL (60-115); Potassium 4.7 mmol/L (3.3-5.1); Sodium 139 mmol/L (135-145)
[2023-08-26] MEDS: Lactated Ringers 1,000 ML 100 ML IVCONT (15:31)
--- NOTE | 2023-08-26 16:41 | PHA.MEDREC ---
Pharmacy Consult ? Medication Reconciliation Pharmacy has completed the medication reconciliation.Confirmed medications with patient. Patient stated she has not taken her meds since 08/19/2023 when the doctor told her to stop for surgery.
[2023-08-26] MEDS: ceFAZolin Sodium/Dextrose,Iso 2 GM/50 ML PIGGYBACK IV (17:04)
[2023-08-26] MEDS: Acetaminophen 1,000 MG/100 ML PIGGYBACK 16.7 MG IV (19:06)
[2023-08-26] MEDS: Famotidine/PF 20 MG/2 ML VIAL IVPUSH (19:07)
[2023-08-26] MEDS: rOPINIRole HCL 0.25 MG TABLET 0.75 MG PO (19:07)
[2023-08-26] MEDS: Sacubitril/Valsartan 24/26 1 TAB TABLET PO (19:07)
[2023-08-26] MEDS: Metoprolol Succinate ER 100 MG TAB.ER.24H 200 MG PO (19:07)
--- NOTE | 2023-08-26 19:11 | PC.RT ---
Pt refused CPAP
[2023-08-27] MEDS: Lactated Ringers 1,000 ML 100 ML IVCONT (01:18)
[2023-08-27] MEDS: Acetaminophen 1,000 MG/100 ML PIGGYBACK 16.7 MG IV ×2 (01:18→06:05)
[2023-08-27 03:17] VITALS: BP 115/66; PULSE 57; RESP 19; TEMP 36.7; O2SAT 92
--- NOTE | 2023-08-27 05:58 | PC.NURSE ---
surgical 24hr update documented on paper chart.
[2023-08-27 06:17] LABS: Anion Gap 12 (12-20); Blood Urea Nitrogen 19 mg/dL (9-16); Calcium 9.2 mg/dL (8.4-10.2); Carbon Dioxide 27 mmol/L (22-29); Chloride 106 mmol/L (96-108); Creatinine Clr Calc Pharmacy 92.2; Estimated Glomerular Filt Rate > 60; Glucose Random 129 mg/dL (60-115); Potassium 4.8 mmol/L (3.3-5.1); Sodium 140 mmol/L (135-145)
[2023-08-27 06:26] LABS: Basophils Percent Auto 0.2 % (0-2); Hematocrit 37.3 % (37.0-47.0); Hemoglobin 11.8 g/dl (12.0-16.0); Imm Gran Abs Auto 0.06 X10*3/uL (0.00-0.03); Imm Gran Pct Auto 0.6 % (0.0-0.4); Lymphocytes Absolute Auto 0.7 X10*3/uL (1.2-4.9); MANUAL DIFF FLAG SCAN; Mean Corpuscular HGB Conc 31.6 g/dl (31.0-35.0); Mean Corpuscular Hemoglobin 28.6 pg (27.0-33.0); Mean Corpuscular Volume 90.3 fL (80.0-98.0); Monocytes Absolute Auto 0.2 X10*3/uL (0.1-1.2); Neutrophils Absolute Auto 9.2 x10*3/uL (2.0-8.3); Neutrophils Percent Auto 90.2 % (45-73); Platelet Count 186 X10*3/uL (160-400); Red Blood Count 4.13 X10*6/uL (4.20-5.50); SCAN SMEAR FLAG 1; White Blood Count 10.3 X10*3/uL (4.8-10.8)
[2023-08-27 07:12] LABS: SLIDE REVIEW VERIFIED
[2023-08-27 07:42] VITALS: BP 106/67; PULSE 71; RESP 16; TEMP 36; O2SAT 95
[2023-08-27] MEDS: Escitalopram Oxalate 20 MG TABLET PO (08:24)
[2023-08-27] MEDS: Spironolactone 25 MG TABLET PO (08:24)
[2023-08-27] MEDS: Famotidine/PF 20 MG/2 ML VIAL IVPUSH (08:24)
[2023-08-27] MEDS: amLODIPine Besylate 10 MG TABLET PO (08:24)
[2023-08-27] MEDS: Sacubitril/Valsartan 24/26 1 TAB TABLET PO (08:24)
[2023-08-27] MEDS: 0.9 % Sodium Chloride Flush 3 ML SYRINGE IVFLUSH (08:25)
--- OUTSIDE RECORDS SUMMARY | 2023-08-27 10:53 | XMS_ITS | Continuity of Care Document ---
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. no contraindications per patient 5Admin Note: [employer] manufacturers. no contraindications per patient 6Admin Note: [employer] [facility] 7Admin Note: [employer],[place] 8Admin Note: Novaritis Medications Albuterol (Eqv-ProAir HFA) [...] 04/01/23 21:26:00 EST, Route to Pharmacy Electronically, [facility]/pharmacy #[id number], 157.48, cm, 11/17/22 16:49:00 EDT, Height, 111,... Start Date: 04/01/23 Status: Ordered aspirin 81 mg oral delayed release tablet 81 mg, By Mouth, Daily, # 30 tablet, Refills 11, Tot. Refills 11, Maintenance, 06/12/21 9:27:00 EDT, Route to Pharmacy Electronically, [facility], Partial fill upon patient request if the prescription is for a schedule II opioid drug., 1... Start Date: 06/12/21 Stop Date: 06/07/22 Status: Ordered Ativan 0.5 mg oral tablet 1 tablet = 0.5 mg, By Mouth, Daily at bedtime, PRN as needed for anxiety, # 30 tablet, 5 Refills, Maintenance, 05/25/23 10:30:00 EST, Tablet, [id number], Partial fill upon patient request if the prescription is for a schedule II opioid drug.,... Start Date: 05/25/23 Status: Ordered atorvastatin 80 mg oral tablet 1 tablet, By Mouth, Daily at bedtime, # 90 tablet, 1 Refills, Maintenance, 10/12/22 12:22:00 EDT, [facility], 157.48, cm, 08/28/22 9:39:00 EDT, Height, 111, [...] Refills, Maintenance, 04/28/23 7:10:00 EST, [facility], 157.48, cm, 04/19/23 8:28:00 EST, Height, 111, [...] # 90 tablet, 1 Refills, [facility], 90, TAKE 1 TABLET BY MOUTH EVERY [...] each, 11 Refills, Maintenance, 07/08/22 11:55:00 EDT, [facility], 30, INHALE 2 PUFFS TWICE A DAY, 157.48, cm, 05/18/22 9:48:00 EST, Height, 111, kg, 06/10/21 15:06:00 EDT, Dry Weight Start Date: 07/08/22 Status: Ordered Eliquis 5 mg oral tablet 1 tablet = 5 mg, By Mouth, 2 times a day, # 180 tablet, 11 Refills, Maintenance, 06/25/23 9:17:00 EDT, Tablet, [facility]/pharmacy #[id number], Partial fill upon patient request if the prescription is for a schedule II opioid drug., 154, cm, 06/25/23 9:05:00 EDT,... Start Date: 06/25/23 Status: Ordered ferrous sulfate 325 mg oral enteric coated tablet 1, tablet, By Mouth, 2 times a day, # 180 tablet, Refills 1, Maintenance, 07/26/22 7:26:00 EDT, Route to Pharmacy Electronically, [id number], 157.48, cm, 05/18/22 9:48:00 EST, Height, 111, kg, 06/10/21 15:06:00 EDT, Dry Weight Start Date: 07/26/22 Status: Ordered furosemide 20 mg oral tablet 20 mg, 1, tablet, By Mouth, Daily, PRN, ONLY NEEDED for leg swelling or > 5 lbs weight gain, # 30 tablet, Refills 0, Tot. Refills 0, Maintenance, Other, 06/25/23 9:21:00 EDT, Route to Pharmacy Electronically, [facility]/pharmacy #[id number], Partial fill upon p... Start [...] Refills, Maintenance, 06/25/23 9:15:00 EDT, ER Tablet, [facility]/pharmacy #[id number], Dose increase, 154, cm, 06/25/23 9:05:00 EDT, Height Start Date: 06/25/23 Status: Ordered Metoprolol Succinate ER 200 mg oral tablet, extended release 1 tablet, By Mouth, Daily, # 90 tablet, 0 Refills, Maintenance, 07/19/23 15:33:00 EDT, [facility] ST[id number], 154, cm, 06/25/23 9:05:00 EDT, Height Start Date: 07/19/23 Status: Ordered rOPINIRole 0.25 mg oral tablet 3 tablet = 0.75 mg, By Mouth, Daily at bedtime, # 270 tablet, 3 Refills, Maintenance, 07/20/23 10:38:00 EDT, [facility]/pharmacy #[id number], 154, cm, 06/25/23 9:05:00 EDT, Height Start Date: 07/20/23 Status: Ordered sacubitril-valsartan 97 mg-103 mg oral tablet 1 tablet, By Mouth, 2 times a day, # 180 tablet, 1 Refills, Maintenance, 07/21/23 13:19:00 EDT, Tablet, [facility]/pharmacy #[id number], This is an increased dose, 1 tablet By Mouth 2 times a day,x90 days, 154, cm, 06/25/23 9:05:00 EDT, Height Start Date: 07/21/23 Stop Date: 01/17/24 Status: Ordered spironolactone 25 mg oral tablet 25 mg, 1, tablet, By Mouth, Daily, # 90 tablet, Refills 3, Tot. Refills 3, Maintenance, 05/27/23 11:09:00 EST, Route to Pharmacy Electronically, [facility]/pharmacy #[id number], 157.48, cm, 05/21/23 12:45:00 EST,Height, 111, kg, 06/10/21 15:06:00 EDT, Dry Weight Start Date: 05/27/23 Status: Ordered Problem List Condition Confirmation Course Effective Dates Status H ealth Status Informant Asthma Confirmed Active Atrial fibrillation Confirmed Active Back pain 1 Confirmed Active Cardiomyopathy Confirmed Active Major depression, chronic Confirmed Active CHF (congestive heart failure) (NCBI22-91% on echo 2019) Confirmed Active Coronary artery [...] recent to oldest [Reference Range]: 1 Height 154 cm (08/17/23 3:56 PM) Weight 132.5 kg (08/17/23 3:56 PM) Oxygen Saturation [94-100 %] 97 % (08/17/23 3:56 PM) Pulse Rate [55-90 bpm] 70 bpm (08/17/23 3:56 PM) Body Mass Index [18.5-24.99 kg/m2] 55.87 kg/m2 *>HHI* (08/17/23 3:56 PM) Blood Pressure [90-138/55-84 mm Hg] 101/ 50mm Hg (08/17/23 3:56 PM) Mode of Delivery (Oxygen) Room air (08/17/23 3:56 PM) Blood pressure sites Arm, left (08/17/23 3:56 PM) Weight Obtained Via Bed scale (08/17/23 3:56 PM) Social History Social History Type Response Smoking Status Former smoker, quit more than 30 days ago; Other: quit June 2021; entered on: 05/18/22 Sex Female Cardiology Outpatient Note * America Joseph NP: PERFORM, MODIFY Event Display: Cardiology Note Office Authored Date: [id number] Patient: ??MEY ALFREDO ? Age:??67 Years?Sex:??Female?:??1955?? Indication for Consult routine follow up History of Present Illness/Interval History Mey presents today for routine follow-up.?? She endorses doing well.?? She has no complaints at this time.?? She is following up with Dr. Oliveira next month with an echocardiogram.?? She is being seen by bariatric surgery, Dr. Bagley with plan for removal of her lap band next week, some time for recovery, then gastric sleeve in about 3 months.?? He has her on a high-protein diet and she is walking about 20 minutes a day.?? She feels good with this other than some leg fatigue and discomfort.??She denies CP, SOB, dizziness, palpitations, peripheral edema.?? No orthopnea, PND. Review of Systems pertinent positives per HPI Physical Exam Vitals & Measurements HR:??70??(Peripheral)?? BP:??101/50?? SpO2:??97%?? HT:??154??cm?? WT:??132.5??kg?? BMI:??55.87?? Weight lb/oz: 292 lb 2 oz General: Alert, sitting in chair comfortably, in NAD.??Ambulated independently,??steady??gait. Mental: Oriented x3. Appropriate affect. Converses easily HEENT: Normocephalic. Pupils round, equal. Mucous membranes moist. Neck: Full ROM Respiratory:??CTA. Nonlabored. Cardiovascular:??RRR. S1/S2. No M/R/G. No edema. No JVD. Gastrointestinal: Abdomen soft, non-tender, non-distended. Active bowel sounds. Neuro: Grossly intact. Moves all extremities spontaneously. Skin: [place], warm. CDI. Assessment/Plan atrial fibrillation HFrEF??35-40% cardiomyopathy CAD HTN HLD PRINCESS ?? Patient presents today for routine follow-up.?? She endorses doing well at this time.?? She has no cardiac complaints or concerns.?? She is being followed by Dr. Oliveira in the heart failure clinic with plan for echocardiogram and follow-up next month.?? She is also being scheduled for lap band removal next week with plan for subsequent gastric sleeve in about 3 months.?? She is working on weight loss and notes she has lost 9 pounds in the last week. ?? Plan continue current regimen follow up in 6 months Allergies Chantix Cordran Tape??(BLISTERS) Nembutal??(Hyperventalating) traZODone??(daytime gogginess) [...] 2 puffs, Inhalation, 2 times a day Eliquis 5 mg oral tablet, 5 mg= 1 tablet, By Mouth, 2 times a day, 11 refills ferrous sulfate 325 mg oral enteric coated tablet, 1 tablet, By Mouth, 2 times a day furosemide 20 mg oral tablet, 20 mg= 1 tablet, By Mouth, Daily, PRN LORazepam 0.5 mg oral tablet metoprolol 200 mg oral tablet, extended release, 200 mg= 1 tablet, By Mouth, Daily Metoprolol Succinate ER 200 mg oral tablet, extended release, 1 tablet, By Mouth, Daily rOPINIRole 0.25 mg oral tablet, 0.75 mg= 3 tablet, By Mouth, Daily at bedtime, 3 refills sacubitril-valsartan 97 mg-103 mg oral tablet, 1 tablet, By Mouth, 2 times a day, 1 refills spironolactone 25 mg oral tablet, 25 mg= 1 tablet, By Mouth, Daily, 3 refills Lab Results Cardiology Labs WBC: 7.8 x10E3/uL (07/27/23) RBC: 4.25 (07/27/23) Hgb: 12.2 g/dL (07/27/23) Hct: 38.4 % (07/27/23) MCV: 90 fL (07/27/23) MCH: 28.7 pg (07/27/23) MCHC: 31.8 g/dL (07/27/23) Platelet Count: 209 x10E3/uL (07/27/23) INR: 1 (07/27/23) Protime (PT): 11 seconds (07/27/23) Sodium: 143 mmol/L (07/27/23) Potassium:??5.8 mmol/L??High (07/27/23) Chloride: 104 mmol/L (07/27/23) Bicarbonate Level: 25 mmol/L (07/27/23) Glucose Level:??100 mg/dL??High (07/27/23) BUN: 15 mg/dL (05/21/23) BUN: 16 mg/dL (07/27/23) Creatinine-Blood:??1.01 mg/dL??High (07/27/23) Calcium: 8.9 mg/dL (07/27/23) Nt-Probnp:??734 pg/mL??High (06/21/23) Diagnostic Impression ECG ECG 12-Lead ?? 08:55:31 Please click on pdf link to open report ?? Signed By: Omer Sosa MD ?? ECG 12-Lead ?? 08:55:31 Ventricular Rate: 65 BPM Atrial Rate: 91 BPM QRS Duration: 94 ms Q-T Interval: 410 ms QTC Calculation(Bazett): 426 ms R Issue: 31 degrees T Issue: 25 degrees Atrial fibrillation Nonspecific ST abnormality Abnormal ECG When compared with ECG of 17-NOV-2022 15:35, Nonspecific T wave abnormality, improved in Inferior leads Confirmed by OMER SOSA MD ([id number]) on 06/25/2023 9:34:34 AM ?? Trufant: OMER SOSA MD ?? Signed By: Omer Sosa MD Echo Echocardiogram - Complete ?? 13:11:25 [...] Back pain Cardiomyopathy CHF (congestive heart failure) (ZGVC76-87% on echo 2019) Cholecystectomy Continuous opioid dependence Coronary artery disease Generalized anxiety disorder Hip pain Hip replacement Hyperlipidemia Hypertension Major depression, chronic OA - Osteoarthritis Obesity (BMI 30-39.9) Opiate analgesic contract exists PRINCESS - Obstructive sleep apnea Patient has healthcare proxy - 10/02/11 Severe obesity Tobacco dependence Procedure/Surgical History Ganglion cyst of right dorsal wrist Tubal ligation Gastric bypass Hip replacement Social History Alcohol Use: Never. Employment/School Status: [...] Congestive heart failure Note * Chika Murrell: PERFORM Event Display: Patient Education/Instruction Authored Date: [id number] Ambulatory Adult Visit Summary [facility] [address] [place] [address] Name: MEY ALFREDO : 1955?? Visit: 08/17/2023 15:48?? Ambulatory Visit Instructions ?? Your Care Team Primary Care Provider Jose Martinez MD? This Visit Provider America Joseph NP Vitals Signs Pulse Rate: 70 bpm Height: 154 cm Systolic Blood Pressure: 101 mm Hg Weight: 132.5 kg Diastolic Blood Pressure:??50 mm Hg??Low Body Mass Index:??55.87 kg/m2??Critical Oxygen Saturation: 97 % Body surface area: 2.38 What to do next Scheduled Follow-Up Appointments Wednesday 1:00 PM EDT ?? Where: [facility] Radiology [facility] [address], [address] [place] [address]- Status: Pending Wednesday 10:15 AM EDT ?? With: Heena Oliveira MD Where: [facility] [address] [place] [address]- Status: Pending Wednesday 12:40 PM EDT ?? With: Jose Martinez MD Where: [address] [address]- Status: Pending Future Orders Basic Metabolic Panel - Once, *Est. 06/03/23 +/- 7 days, Future Order?? B Type Natriuretic Peptide (ProBNP) - Once, *Est. 06/03/23 +/- 7 days, Future Order?? Basic Metabolic Panel - Routine, Once, 06/16/23 3:00:00 EDT every 1 months for 12 months, Single orRecurring Future Order, [facility], Blood?? B Type Natriuretic Peptide (NT ProBNP) - Routine, Once, 06/16/23 3:00:00 EDT every 1 months for 12 months, Single or Recurring Future Order, [facility], Blood?? Medications The list below reflects the information in our records and provided by you today along with any changes made during this visit. Please continue your medications until treatment is completed or stopped by your provider. If this is different from the information you have or there are other questions,please contact the prescribing provider. What How Much When Instructions Unchanged Albuterol (Albuterol (Eqv-ProAir HFA)) 2 puff(s) Inhalation Every 6 hours Unchanged apixaban (Eliquis 5 mg oral tablet) 1 tab(s) Oral Twice a day Unchanged Aripiprazole (ARIPiprazole 5 mg oral tablet) 1 tab(s) Oral Daily TO BE COMBINED WITH THE CITALOPRAM THERAPY. ?? Unchanged Aspirin (aspirin 81 mg oral delayed release tablet) 81 Milligram Oral Daily Duration: 30 Days Unchanged Atorvastatin (atorvastatin 80 mg oral tablet) 1 tab(s) Oral Daily at Bedtime Unchanged Citalopram (citalopram 40 mg oral tablet) 1 tab(s) Oral Daily Unchanged Durable Medical Equipment (CPAP Machine) See instructions AutoCPAP 6-12 cm H20, use Daily when sleeping 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 ?? Unchanged Ferrous Sulfate (ferrous sulfate 325 mg oral enteric coated tablet) 1 tab(s) Oral Twice a day Unchanged formoterol-mometasone (Dulera 100 mcg-5 mcg/ inh inhalation aerosol) 2 puff(s) Inhalation Twice a day Unchanged Furosemide (furosemide 20 mg oral tablet) 1 tab(s) Oral Daily as needed for Other ONLY NEEDED for leg swelling or > 5 lbs weight gain ?? Unchanged Lorazepam (Ativan 0.5 mg oral tablet) 1 tab(s) Oral Daily at Bedtime as needed for as needed for anxiety Unchanged Lorazepam (LORazepam 0.5 mg oral tablet) 30 each, 0 Refill(s), TAKE 1 TABLET BY MOUTH EVERY DAY NEEDED FOR ANXIETY AT BEDTIME ?? Unchanged Metoprolol (metoprolol 200 mg oral tablet, extended release) 1 tab(s) Oral Daily Unchanged Metoprolol (Metoprolol Succinate ER 200 mg oral tablet, extended release) 1 tab(s) Oral Daily Unchanged Miscellaneous Rx (ATORVASTATIN 80 MG TABLET) 1 tab(s) Oral Daily at Bedtime Unchanged Miscellaneous Rx (DAILY ERICA TABLET) 1 tab(s) Oral Daily Unchanged Multivitamin (Daily Erica oral tablet) See instructions TAKE 1 TABLET BY MOUTH EVERY DAY ?? Unchanged Ropinirole (rOPINIRole 0.25 mg oral tablet) 3 tab(s) Oral Daily at Bedtime Unchanged sacubitril-valsartan (sacubitril-valsartan 97 mg-103 mg oral tablet) 1 tab(s) Oral Twice a day Duration: 90 Days Unchanged Spironolactone (spironolactone 25 mg oral tablet) 1 tab(s) Oral Daily Medications and Immunizations Administered Medications Given During Visit No medications given during this visit.?? Allergies (NKA means No Known Allergies) Chantix Cordran Tape??(BLISTERS) Nembutal??(Hyperventalating) traZODone??(daytime gogginess) Common Emergency Awareness Tips IS IT A STROKE? Act FAST and Check for these signs: FACE Does the face look uneven? ARM Does one arm drift down? SPEECH Does their speech sound strange? TIME Call at any sign of stroke ?? Heart Attack Signs Chest discomfort: Most heart attacks involve discomfort in the center of the chest and lasts more than a few minutes, or goes away and comes back. It can feel like uncomfortable pressure, squeezing, fullness or pain. Discomfort in upper body: Symptoms can include pain or discomfort in one or both arms, back, neck, jaw or stomach. Shortness of breath: With or without discomfort. Other signs: Breaking out in a cold sweat, nausea, or lightheaded. Remember, MINUTES DO MATTER. If you experience any of these heart attack warning signs, call to get immediate medical attention! ?? Smoking can increase your chances of developing chronic health problems and can cause harmful effects to other family members in your house. If you smoke, you are strongly encouraged to quit. Please call [facility] [employer] Link at [phone] or [phone] ([phone]) or log in to [email or web address] for referrals to smoking cessation programs. ?? The National Suicide Prevention Hotline is available 12/10 if you or someone you know needs to find a reason to keep living. By calling 5-104-682-[employer] (2523) you'll be connected to a skilled, trained counselor at a crisis center in your area. [facility] [employer] Portal You can view and manage your care through the patient portal or by using a health care chantelle of your choosing. [employer] is a website that allows you to securely view your medical information including your hospital discharge summary, office visit summaries, medications and follow-up visits. You can also request appointments, renew medications, and request access to your medical information using a health care chantelle of your choosing, or just ask a question. You can enroll at [email or web address] or register during your next office visit. [facility], in keeping with [facility] guidance, no longer requires face masks for staff, patientsor visitors in most situations. Similiar to time spent indoors at other locations, there is the chance that you were exposed to repiratory viruses during your time with us (such as flu or COVID-19). If you develop symptoms concerning for a viral respiratory infection, please seek testing (and treatment if indicated) from your medical provider or home test kit. ?? Disclaimer: The information provided is of a general nature and is intended to be used in conjunction with the recommendations and advice of your health care practitioner. Every effort has been made to ensure that the information provided is accurate and complete at the time it is provided to you however, as your needs change, or, as new information becomes available, different or additional instructions may be required. ?? If you have questions, please consult with your primary care provider or pharmacist, as appropriate. This information is not intended to serve as substitution for assessment and evaluation by a qualified health care provider. If you do not have a primary care provider, you may find a [facility] provider by calling [facility] Link at [phone]. Patient Care team information Care Team Personnel Name: Radha Villela Position: [facility] RN Supv Member Role: Primary Care Nurse Name: Nichole Coates RN Position: [facility] SN RN Member Role: Primary Care Nurse Name: Ksenia Herzog RN Position: [facility] RN Member Role: Primary Care Nurse Name: Leatha Walsh RN Position: [facility] SN RN Member Role: Primary Care Nurse Name: Milagro Sims RN Position: S RN Member Role: Primary Care Nurse Name: Jo Ann Stubbs PharmD Position: [facility] Associate Professional Member Role: [employer] Provider Address: Address: [address] [place] [id number]- Name: Anne Gonzalez RN Position: S RN Member Role: Primary Care Nurse Name: Mckayla Wilcox RN Position: [facility] SN RN Member Role: Primary Care Nurse Name: Simin Chen RN Position: S RN Member Role: Primary Care Nurse Name: Jose Martinez MD Position: [facility] Physician - Primary Care Member Role: PCP Address: Address: [address] [place] [address]- Name: Aleks Merchant RN Position: [facility] RN Member Role: Primary Care Nurse Name: Genet Bowman RN Position: [facility] RN Member Role: Primary Care Nurse Name: Ilana Burns RN Position: S RN Member Role: Primary Care Nurse Care Team Related Persons Name: TUTU ROWLAND Address: home [address] [place] [id number] Name: JANET CONNOR Address: home [address] [place] [address]
[2023-08-27] MEDS: Fluticasone/Vilanterol 100/25 BLST.W.DEV 1 PUFF INHALE (11:39)
[2023-08-27 11:40] VITALS: PULSE 86; RESP 16; O2SAT 95
--- NOTE | 2023-08-27 13:20 | MHC.CM.PN ---
IMM 08/26. Pt self-care, lives at home with her brother and sister. Pts grandson will transport her home. Pt states her HCP is her sister, copy requested. PCP: Dr. Jose Martinez
--- NOTE | 2023-08-27 13:41 | PC.NURSE ---
Pt understands all DC instructions including but not limited to, wound care, f/u appointments, and when to call DR. Luis Vega resume Fondaparinux starting tomorrow. All medications reviewed including medications to hold. Pt denying pain at this time, IV removed, tip intact, pt tolerated well.
== END 2023-08-27 13:41 | disposition home or self-care (01) ==
LOC: HO.SSS 13:39 → HO.S3 14:38
PROVIDERS: Physician Assistant Surgical; PCP Internal Medicine; Visit Provider Surgery
PROC: (CPT 43774; principal; 2023-08-26 10:30)
PROC: 0DJ08ZZ Inspection of Upper Intestinal Tract, Via Natural or Artificial Opening Endoscopic (ICD-10-PCS; CPT 43235; 2023-08-26 10:30)
DX: K95.09 Other complications of gastric band procedure (principal); Y83.8 Other surgical procedures as the cause of abnormal reaction of the patient, or of later complication, without mention of misadventure at the time of the procedure; Y92.9 Unspecified place or not applicable; K66.0 Peritoneal adhesions (postprocedural) (postinfection); E66.01 Morbid (severe) obesity due to excess calories; Z68.43 Body mass index [BMI] 50.0-59.9, adult; I11.0 Hypertensive heart disease with heart failure; I50.9 Heart failure, unspecified; I25.10 Atherosclerotic heart disease of native coronary artery without angina pectoris; I48.91 Unspecified atrial fibrillation; K21.9 Gastro-esophageal reflux disease without esophagitis; M19.90 Unspecified osteoarthritis, unspecified site; F32.A Depression, unspecified; F41.9 Anxiety disorder, unspecified; G25.81 Restless legs syndrome; G47.30 Sleep apnea, unspecified; Z79.01 Long term (current) use of anticoagulants; Z79.82 Long term (current) use of aspirin; Z79.899 Other long term (current) drug therapy; Z98.84 Bariatric surgery status
CPT/HCPCS: 43774; 36415; 80048; 80053; 82607; 82746; 83525; 83540; 84630; 85014; 85018; 85025; 85610; 85730; 86850; 86900; 86901; 88300; 88302; 94640; C9088; J0131; J0690; J1100; J2250; J2405; J2704; J2795; J3010; J7120

== ENCOUNTER → 2023-08-26 08:10 | Outpatient (BNV) | payer OTHER, SELFPAY | PROVIDERS: PCP Internal Medicine; Visit Provider Surgery | DX: E66.01 Morbid (severe) obesity due to excess calories (principal); Z68.43 Body mass index [BMI] 50.0-59.9, adult; Z98.84 Bariatric surgery status | CPT/HCPCS: 43774; 99024 ==

== ENCOUNTER 2023-08-31 11:00 | Outpatient (AMB) | payer OTHER, SELFPAY ==
--- NOTE | 2023-08-31 11:16 | A.OFFWM_ITS ---
Intake Intake Visit Reasons: TV BH Intake Allergies trazodone Adverse Reaction (Severe, Verified 09/01/23 10:44) SOB hospiital tape Allergy (Unknown, Uncoded 08/31/23 12:28) Rash nebutol Allergy (Uncoded 08/31/23 12:28) Difficulty Breathing [facility] Medical History (Updated 09/13/23 @ 14:34 by Amee Murry) Elevated cholesterol History of MRSA infection Back pain COPD (chronic obstructive pulmonary disease) GERD (gastroesophageal reflux disease) Depression Anxiety Restless leg syndrome DJD (degenerative joint disease) CHF (congestive heart failure) Atrial fibrillation Myocardial infarct CAD (coronary artery disease) Hypertension Sleep apnea Morbid obesity Surgical History (Updated 08/31/23 @ 12:20 by Niya Ruelas CMA) History of removal of laparoscopic gastric banding device History of hip surgery Hx of cholecystectomy Hx of laparoscopic gastric banding Family History Maternal Grandfather Colon cancer Social History Household Members: Family Housing: House Are you a primary customer care specialist to a significant other at home: No Do you presently have visiting nurse or other home services: No Patient Tobacco Use Status: Former Tobacco user Tobacco use type: Cigarette service: No Behavioral Health Assessment Weight Management Therapy Therapy Notes Details Patient is looking to have weight loss surgery to help improve her health and quality of life. She is having trouble walking or standing on her feet long. She is currently not in therapy but was many years ago, her PCP is giving her medication for anxiety. No hx of problems with alcohol or drugs. She reported inpatient psychiatric admissions in her 20's. Presenting Concerns Referral Source provider Reason for referral weight loss surgery evaluation Precipitating Event obesity Living Situation Current Living Situation Rent At risk of losing current housing? No Satisfied with current living situation? Yes Comments Patient lives in an apartment with her sister and brother. Food/Weight/Diet Expectations of change weight loss and maintenance History/Relationship with food She would graze during the day and after dinner. She would eat cereal, granola bars, fruit, candy , ice cream, processed foods, drank soda often/daily, coffee, juice over eating often, eating fast, History/Relationship with weight lowest weight after lapband was 220lbs. At her lowest she was 170lbs in her 30's. As a child was thin, per her report. She is currently at her heaviest. History/Relationship with dieting lapband for 15 years, just had it removed. Binge Eating Do you frequently eat large amounts of food in short periods of time, not feeling physically hungry? Yes Do you feel out of control when you eat a large amount of food in a short period of time? Yes Do you eat large amounts of food rapidly and typically alone? Yes Night Eating Do you wake up at least once during the night to eat? No If you wake up in the night, do you find that it is necessary to eat something in order to fall back asleep? No Do you have little or no appetite in the morning and feel very hungry in the evening, often overeating between dinner and when you go to bed? Yes Social History Family history and relationship Patient reported having three adult children, and 7 grandchildren. She is single. Mother was obese, from massive heart attack at age 44. Also daughter at age 28 from a heart attack. Does not know her real father. 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 none reported Education Highest grade completed high school Preferred learning style Auditory, Verbal, Written, Learn by doing and Visual Currently enrolled in educational program? No Interested in further educational program? 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 Employment Employment Status Unemployed Wants help to find employment? No Meaningful activities [employer] with friends Financial Situation Describe current financial situation Occasional struggle Financial assistance? Food [place] and SSDI Service Service? No Mental Health and Addiction Treatment Current/Past substance abuse? No Current/Past addictive behavior concerns? No Medical and Physical Health Summary Physical exam in the last year? Yes Pain Screening Current pain? Yes Pain in the last few months? Yes Comments chronic back pain Medications Is the patient compliant with medications? Yes Does the patient have Molina Guardian in place? Not applicable Does the patient use complimentary health approaches? No Trauma/Abuse History History of trauma? Yes Assessment & Plan Assessment & Plan (1) Generalized anxiety disorder: Code(s): F41.1 - Generalized anxiety disorder (2) Morbid obesity: Code(s): E66.01 - Morbid (severe) obesity due to excess calories Plan Pt does not present with any major mental health barriers. Patient is cleared for surgery when ready. Telehealth Telehealth Telehealth Platform: Telephone Location of provider rendering services: other Location of patient: address on file Patient Identification confirmed using: Name, : Yes Telehealth method: voice only Patient verbally consented to treatment: Yes Patient verbally consented to billing insurance company: Yes Patient informed of any privacy concerns related to visit: Yes Minutes spent on Phone/Video with Pt.: 45 Coding Level of Care Code Tele Psy Diag Eval (82860) Diagnoses Generalized anxiety disorder F41.1 Morbid obesity E66.01 Time Spent (min) 45
--- OUTSIDE RECORDS SUMMARY | 2023-08-31 12:44 | XMS_ITS | Continuity of Care Document ---
Author Organization [facility] Address [address] [place] [address]- Care Team Providers Care Phone Technician Name Role Phone Jose Martinez MD Primary Care Physician Encounter [facility] Date(s): 07/29/23 - 08/28/23 [facility] [address] [place] [address]- Allergies, Adverse Reactions, Alerts Substance Reaction Severity [...] H1N1, inactive(oldterm) 8 01/21/09 Given 1Result Comment: [facility]:[id number] 2Result Comment: [facility]:[id number] 3Result Comment: [01/19/2018] [id number] 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. no contraindications per patient 5Admin Note: [employer]. no contraindications per patient 6Admin Note: [employer] [facility] 7Admin Note: [employer] [place] 8Admin Note: Novaritis Medications Albuterol (Eqv-ProAir HFA) [...] 04/01/23 21:26:00 EST, Route to Pharmacy Electronically, [facility]/pharmacy #[id number], 157.48, cm, 11/17/22 16:49:00 EDT, Height, 111,... Start Date: 04/01/23 Status: Ordered aspirin 81 mg oral delayed release tablet 81 mg, By Mouth, Daily, # 30 tablet, Refills 11, Tot. Refills 11, Maintenance, 06/12/21 9:27:00 EDT, Route to Pharmacy Electronically, [facility], Partial fill upon patient request if the prescription is for a schedule II opioid drug., 1... Start Date: 06/12/21 Stop Date: 06/07/22 Status: Ordered Ativan 0.5 mg oral tablet 1 tablet = 0.5 mg, By Mouth, Daily at bedtime, PRN as needed for anxiety, # 30 tablet, 5 Refills, Maintenance, 05/25/23 10:30:00 EST, Tablet, [facility]/pharmacy #[id number], Partial fill upon patient request if the prescription is for a schedule II opioid drug.,... Start Date: 05/25/23 Status: Ordered atorvastatin 80 mg oral tablet 1 tablet, By Mouth, Daily at bedtime, # 90 tablet, 1 Refills, Maintenance, 10/12/22 12:22:00 EDT, [id number], 157.48, cm, 08/28/22 9:39:00 EDT, Height, 111, [...] Refills, Maintenance, 04/28/23 7:10:00 EST, [id number], 157.48, cm, 04/19/23 8:28:00 EST, Height, 111, [...] # 90 tablet, 1 Refills, [id number], 90, TAKE 1 TABLET BY MOUTH EVERY [...] each, 11 Refills, Maintenance, 07/08/22 11:55:00 EDT, [id number], 30, INHALE 2 PUFFS TWICE A DAY, 157.48, cm, 05/18/22 9:48:00 EST, Height, 111, kg, 06/10/21 15:06:00 EDT, Dry Weight Start Date: 07/08/22 Status: Ordered Eliquis 5 mg oral tablet 1 tablet = 5 mg, By Mouth, 2 times a day, # 180 tablet, 11 Refills, Maintenance, 06/25/23 9:17:00 EDT, Tablet, [facility]/pharmacy #[id number], Partial fill upon patient request if the prescription is for a schedule II opioid drug., 154, cm, 06/25/23 9:05:00 EDT,... Start Date: 06/25/23 Status: Ordered ferrous sulfate 325 mg oral enteric coated tablet 1, tablet, By Mouth, 2 times a day, # 180 tablet, Refills 1, Maintenance, 07/26/22 7:26:00 EDT, Route to Pharmacy Electronically, [id number], 157.48, cm, 05/18/22 9:48:00 EST, Height, 111, kg, 06/10/21 15:06:00 EDT, Dry Weight Start Date: 07/26/22 Status: Ordered furosemide 20 mg oral tablet 20 mg, 1, tablet, By Mouth, Daily, PRN, ONLY NEEDED for leg swelling or > 5 lbs weight gain, # 30 tablet, Refills 0, Tot. Refills 0, Maintenance, Other, 06/25/23 9:21:00 EDT, Route to Pharmacy Electronically, [facility]/pharmacy #[id number], Partial fill upon [...] Refills, Maintenance, 06/25/23 9:15:00 EDT, ER Tablet, [facility]/pharmacy #[id number], Dose increase, 154, cm, 06/25/23 9:05:00 EDT, Height Start Date: 06/25/23 Status: Ordered Metoprolol Succinate ER 200 mg oral tablet, extended release 1 tablet, By Mouth, Daily, # 90 tablet, 0 Refills, Maintenance, 07/19/23 15:33:00 EDT, [id number], 154, cm, 06/25/23 9:05:00 EDT, Height Start Date: 07/19/23 Status: Ordered rOPINIRole 0.25 mg oral tablet 3 tablet = 0.75 mg, By Mouth, Daily at bedtime, # 270 tablet, 3 Refills, Maintenance, 07/20/23 10:38:00 EDT, [facility]/pharmacy #[id number], 154, cm, 06/25/23 9:05:00 EDT, Height Start Date: 07/20/23 Status: Ordered sacubitril-valsartan 97 mg-103 mg oral tablet 1 tablet, By Mouth, 2 times a day, # 180 tablet, 1 Refills, Maintenance, 07/21/23 13:19:00 EDT, Tablet, [facility]/pharmacy #[id number], This is an increased dose, 1 tablet By Mouth 2 times a day,x90 days, 154, cm, 06/25/23 9:05:00 EDT, Height Start Date: 07/21/23 Stop Date: 01/17/24 Status: Ordered spironolactone 25 mg oral tablet 25 mg, 1, tablet, By Mouth, Daily, # 90 tablet, Refills 3, Tot. Refills 3, Maintenance, 05/27/23 11:09:00 EST, Route to Pharmacy Electronically, [facility]/pharmacy #[id number], 157.48, cm, 05/21/23 12:45:00 EST,Height, 111, kg, 06/10/21 15:06:00 EDT, Dry Weight Start Date: 05/27/23 Status: Ordered Problem List Condition Confirmation Course Effective Dates Status H ealth Status Informant Asthma Confirmed Active Atrial fibrillation Confirmed Active Back pain 1 Confirmed Active Cardiomyopathy Confirmed Active Major depression, chronic Confirmed Active CHF (congestive heart failure) ([id number]% on echo 2019) Confirmed Active Coronary artery [...] Care Team Personnel Name: Radha Villela Position: [facility] RN Supv Member Role: Primary Care Nurse Name: Nichole Coates RN Position: [facility] SN RN Member Role: Primary Care Nurse Name: Ksenia Herzog RN Position: [facility] RN Member Role: Primary Care Nurse Name: Leatha Walsh RN Position: [facility] SN RN Member Role: Primary Care Nurse Name: Milagro Sims RN Position: [facility] RN Member Role: Primary Care Nurse Name: Jo Ann Stubbs PharmD Position: [facility] Associate Professional Member Role: [employer] Provider Address: Address: [address] [place] [phone] [place] Name: Anne Gonzalez RN Position: [facility] RN Member Role: Primary Care Nurse Name: Mckayla Wilcox RN Position: [facility] SN RN Member Role: Primary Care Nurse Name: Simin Chen RN Position: [facility] RN Member Role: Primary Care Nurse Name: Jose Martinez MD Position: [facility] Physician - Primary Care Member Role: PCP Address: Address: [address] [place] [phone]- [place] Name: Aleks Merchant RN Position: S RN Member Role: Primary Care Nurse Name: Genet Bowman RN Position: [facility] RN Member Role: Primary Care Nurse Name: Ilana Burns RN Position: S RN Member Role: Primary Care Nurse Care Team Related Persons Name: KASHIF TUTU Address: [address] [address] Name: JANET CONNOR Address: home [address] [place] [address]
== END 2023-08-31 13:29 | disposition home or self-care (01) ==
LOC: HO.HBST 12:38
PROVIDERS: Visit Provider Counselor Mental Health
DX: F41.1 Generalized anxiety disorder (principal); E66.01 Morbid (severe) obesity due to excess calories
CPT/HCPCS: 90791

== ENCOUNTER 2023-08-31 12:16 | Outpatient (AMB) | payer OTHER, SELFPAY ==
--- NOTE | 2023-08-31 12:18 | MHC.OFFVISWM ---
VS Expanded 08/31/23 12:27 BP 102/61 Blood Pressure Location Rt brachial Blood Pressure Position Sitting Pulse 85 Pulse Source Pulse Oximeter Temp 96.5 F L Temperature Source Tympanic Pulse Oximetry 97 Oxygen Delivery Method Room Air Intake Visit Reasons: (OV) s/p Lap Band Removal 08/26/23 Allergies hospiital tape Allergy (Unknown, Uncoded 08/31/23 12:28) Rash nebutol Allergy (Uncoded 08/31/23 12:28) Difficulty Breathing HPI Comments Details: Patient is a 68-year-old female who returns to the office today in follow-up. She is status post gastric band removal on 08/26/2023. She states overall she is doing fairly well. She did have 1 episode of lightheadedness today although no syncope. She has been taking her blood pressure medications without checking her blood pressure as was instructed upon her discharge from the hospital. She states that she will check her blood pressure at home as she does have a blood pressure cuff. She has been tolerating her meal plan consisting of 2 shakes and a meal and a protein bar. She has not complained of reflux. She has been using the blood thinner injection and may stop this at this point and resume her home oral anticoagulant. She states that she previously was using the treadmill or walking outside for exercise prior to surgery although this has been limited by her chronic arthritis of her knee. [facility] Medical History (Updated 08/28/23 @ 00:02 by Gabriela Mcguire) Elevated cholesterol History of MRSA infection Back pain COPD (chronic obstructive pulmonary disease) GERD (gastroesophageal reflux disease) Depression Anxiety Restless leg syndrome DJD (degenerative joint disease) CHF (congestive heart failure) Atrial fibrillation Myocardial infarct CAD (coronary artery disease) Hypertension Sleep apnea Morbid obesity Surgical History (Updated 08/31/23 @ 12:20 by Niya Ruelas CMA) History of removal of laparoscopic gastric banding device History of hip surgery Hx of cholecystectomy Hx of laparoscopic gastric banding Family History Maternal Grandfather Colon cancer Social History Household Members: Family Housing: House Are you a primary career consultant to a significant other at home: No Do you presently have visiting nurse or other home services: No Patient Tobacco Use Status: Former Tobacco user Tobacco use type: Cigarette service: No Physical Exam Vital Signs: Last Vital Signs Temp 96.5 F L 08/31/23 12:27 Pulse 85 08/31/23 12:27 BP 102/61 08/31/23 12:27 Pulse Ox 97 08/31/23 12:27 Oxygen Delivery Method Room Air 08/31/23 12:27 GI Inspection: Yes incision (Mild bruising, otherwise clean, dry, intact.) Assessment & Plan Assessment & Plan (1) History of removal of laparoscopic gastric banding device: Comment: 08/26/23 Code(s): Z98.84 - Bariatric surgery status Category: Surgical Plan: She will continue to follow the meal plan that she created using the chantelle. She will communicate with Dr. Agustin. She may resume her oral anticoagulant and discontinue injectable. She has been encouraged to continue to strive to increase her exercise tolerance even by 1-2 minutes per day. She was encouraged to check her blood pressure at home prior to taking her blood pressure medications and communicate with Dr. Agustin as was instructed upon her discharge from the hospital 6 days ago. She will follow up with him for further definitive preoperative surgical weight loss management.
[2023-08-31 12:27] VITALS: BP 102/61; PULSE 85; TEMP 35.8; O2SAT 97
== END 2023-08-31 12:49 | disposition home or self-care (01) ==
PROVIDERS: Visit Provider Physician Assistant Surgical
DX: Z98.84 Bariatric surgery status (principal)
CPT/HCPCS: 99024

== ENCOUNTER → 2023-08-31 12:16 | Outpatient (BNVA) | payer OTHER, SELFPAY | PROVIDERS: Visit Provider Physician Assistant Surgical | DX: Z48.815 Encounter for surgical aftercare following surgery on the digestive system (principal); Z98.84 Bariatric surgery status | CPT/HCPCS: 99212 ==

== ENCOUNTER 2023-09-01 10:28 | Outpatient (AMB) | payer OTHER, SELFPAY ==
[2023-09-01 10:38] VITALS: BP 104/60; PULSE 81; O2SAT 95; BMI 53.6
--- NOTE | 2023-09-01 10:38 | A.OFFVIS_ITS ---
Vital Signs 09/01/23 10:38 Height 5 ft 2 in Weight 293 lb BMI 53.6 BP 104/60 Blood Pressure Location Rt brachial Position Sitting Pulse 81 Pulse Source Doppler Pulse Oximetry (%) 95 Oxygen Delivery Method Room Air Intake Visit Reasons: princess Allergies trazodone Adverse Reaction (Severe, Verified 09/01/23 10:44) SOB hospiital tape Allergy (Unknown, Uncoded 08/31/23 12:28) Rash nebutol Allergy (Uncoded 08/31/23 12:28) Difficulty Breathing HPI HPI princess: Details: 68-year-old lady, former 40+ pack-year smoker, quit 3 years prior with underlying obesity followed by weight management, also asthma on Dulera/albuterol MDI, referred for evaluation of underlying PRINCESS. Patient states that she had a CPAP machine remotely, however she had significant weight changes this since. She would like to retry using CPAP. [facility] Medical History (Updated 09/01/23 @ 11:00 by Santi Angulo MD) Elevated cholesterol History of MRSA infection Back pain COPD (chronic obstructive pulmonary disease) GERD (gastroesophageal reflux disease) Depression Anxiety Restless leg syndrome DJD (degenerative joint disease) CHF (congestive heart failure) Atrial fibrillation Myocardial infarct CAD (coronary artery disease) Hypertension Sleep apnea Morbid obesity Surgical History (Updated 08/31/23 @ 12:20 by Niya Ruelas CMA) History of removal of laparoscopic gastric banding device History of hip surgery Hx of cholecystectomy Hx of laparoscopic gastric banding Family History Maternal Grandfather Colon cancer Social History Household Members: Family Housing: House Are you a primary out of school hours care worker to a significant other at home: No Do you presently have visiting nurse or other home services: No Patient Tobacco Use Status: Former Tobacco user Tobacco use type: Cigarette service: No Review of Systems Const Reports daytime sleepiness, Denies excessive sweating, Reports fatigue, Denies fever(s), Denies lethargy, Denies malaise, Denies night sweats, Reports snoring and Denies weight loss Eyes Denies blurry vision and Denies itchy eyes ENT Denies nasal congestion, Denies post nasal drip, Denies sinus pain, Denies sinus pressure and Denies other ( Thrush) Card Denies chest pain, Denies pedal edema, Denies dyspnea, Denies orthopnea and Denies paroxysmal nocturnal dyspnea Resp Denies cough, Denies hemoptysis, Denies excessive phlegm production, Denies dyspnea, Reports snoring and Denies wheezing GI Denies abdominal pain and Denies heartburn Musc Denies myalgias, Denies arthralgias and Denies joint swelling Skin/Breast Denies rash Neuro Denies memory loss and Denies seizure-like activity Psych Denies abnormal sleep pattern, Denies anxiety and Denies memory loss Endo Denies excessive sweating, Reports fatigue and Denies heat intolerance Armen/Lymph Denies easy bruising Aller/Immun Denies itchy eyes, Denies seasonal rhinorrhea and Denies wheezing Physical Exam Vital Signs: Last Vital Signs Pulse 81 09/01/23 10:38 BP 104/60 09/01/23 10:38 Pulse Ox 95 09/01/23 10:38 Oxygen Delivery Method Room Air 09/01/23 10:38 BMI result Body Mass Index 53.6 Const General: no acute distress and alert Nutritional Appearance: obese Orientation/consciousness: Other orientation findings ( oriented) HEENT Head: Yes atraumatic Eyes General: appearance normal, both eyes and all related structures Sclerae: sclerae normal EOM: EOMs intact bilaterally Neck Neck: Yes supple Lymphatic: no lymphadenopathy noted Resp Effort & Inspection: normal respiratory effort and no use of accessory muscles Auscultation: clear to auscultation bilaterally Cardio Rate: regular rate Rhythm: regular rhythm Heart sounds: no gallops, no murmurs and no rubs Skin General skin exam: other ( warm) Extrem General: No clubbing, No cyanosis and No edema Assessment & Plan Assessment & Plan (1) PRINCESS (obstructive sleep apnea): Code(s): G47.33 - Obstructive sleep apnea (adult) (pediatric) Category: Medical Plan: Unrestful sleep, snoring, daytime somnolence. [place] Sleepiness Scale score of 15. Will obtain home sleep study. (2) Personal history of nicotine dependence: Code(s): Z87.891 - Personal history of nicotine dependence Category: Medical Plan: Will obtain lung cancer screening CT chest. (3) Asthma: Code(s): J45.909 - Unspecified asthma, uncomplicated Category: Medical Plan: Reasonably well controlled on Dulera and albuterol MDI. Will obtain full PFT. Orders: Orders PFT pulmonary function test Today J45.909 - Unspecified asthma, uncomplicated CT lung screening Today Z87.891 - Personal history of nicotine dependence RT home sleep study Today G47.33 - Obstructive sleep apnea (adult) (pediatric) Coding Level of Care Code New Pt Level 4 (47834) Diagnoses PRINCESS (obstructive sleep apnea) G47.33 Personal history of nicotine dependence Z87.891 Asthma J45.909
== END 2023-09-01 11:02 | disposition home or self-care (01) ==
PROVIDERS: PCP Internal Medicine; Referring Provider Surgery; Visit Provider Internal Medicine Pulmonary Disease
DX: G47.33 Obstructive sleep apnea (adult) (pediatric) (principal); Z87.891 Personal history of nicotine dependence; J45.909 Unspecified asthma, uncomplicated
CPT/HCPCS: 99204

== ENCOUNTER → 2023-09-01 10:28 | Outpatient (BNVA) | payer OTHER, SELFPAY | PROVIDERS: PCP Internal Medicine; Referring Provider Surgery; Visit Provider Internal Medicine Pulmonary Disease | DX: G47.33 Obstructive sleep apnea (adult) (pediatric) (principal); J45.909 Unspecified asthma, uncomplicated; Z87.891 Personal history of nicotine dependence | CPT/HCPCS: 99202 ==

== ENCOUNTER 2023-09-07 10:27 | Outpatient (REF) | payer OTHER, SELFPAY ==
--- NOTE | ~2023-09-07 | FL_ITS ---
EXAMINATION: XR FLUOROSCOPY UPPER GI WITH AIR CLINICAL INFORMATION: Preop evaluation prior to bariatric surgery COMPARISON: None TECHNIQUE: Fluoroscopic air contrast upper GI examination was performed utilizing standard techniques with thin and thick barium and effervescent granules. Numerous spot images were obtained. FINDINGS: Dual and single contrast images of the esophagus demonstrate normal caliber, contour, and mucosal pattern. There is mild to moderate cricopharyngeal achalasia present. There is a small anterior cervical web present just below the hypopharynx. No evidence of mass, or ulcerations identified. Esophageal peristalsis is mildly disorganized. A small type I hiatal hernia is present. Mild spontaneous gastroesophageal reflux was seen during the course of the examination and on reflux views. Dual contrast and single contrast images of the stomach demonstrated a normal contour. Evaluation of the gastric mucosa is limited due to poor coating of the barium, and lack of distention of the stomach from poor retention of the effervescent granule gas. No masses are seen. Contrast freely passed into the gastric antrum and duodenal bulb without delay. Single and air-contrast images of the duodenal bulb demonstrate no abnormality. The duodenal sweep has a normal appearance, course, and mucosal fold appearance. The imaged proximal jejunum has a normal fold pattern and caliber. Cholecystectomy clips are present. FLUOROSCOPY TIME: 3 minutes 48 seconds Number of Spot Images: 8 Number of Cine: 12 DOSE AREA PRODUCT: 3085 uGy-m2 (microgray-meter squared) FL/FL upper GI w air IMPRESSION: 1. Mild to moderate cricopharyngeal achalasia. 2. Small anterior cervical web just below the hypopharynx. 3. Mildly disorganized esophageal peristalsis. 4. Mild spontaneous gastroesophageal reflux. 5. Limited evaluation of the gastric mucosa due to poor coating of the barium, and lack of distention of the stomach from poor tolerance of the effervescent granules. This procedure was performed by Raphael Lopez PA-C, and supervised by Dr. Lindsay
== END 2023-09-07 10:28 | disposition home or self-care (01) ==
LOC: HO.XRAY 10:27
PROVIDERS: PCP Internal Medicine; Visit Provider Surgery
DX: E66.01 Morbid (severe) obesity due to excess calories (principal); K21.9 Gastro-esophageal reflux disease without esophagitis
CPT/HCPCS: 74246

== ENCOUNTER → 2023-11-24 10:45 | Outpatient (REF) | payer OTHER, SELFPAY | LOC: HO.SL 10:45 | PROVIDERS: PCP Internal Medicine; Visit Provider Internal Medicine Pulmonary Disease | DX: G47.33 Obstructive sleep apnea (adult) (pediatric) (principal) | CPT/HCPCS: 95806 ==

== ENCOUNTER → 2023-11-24 10:59 | Outpatient (BNV) | payer OTHER, SELFPAY | PROVIDERS: PCP Internal Medicine; Visit Provider Internal Medicine | DX: G47.33 Obstructive sleep apnea (adult) (pediatric) (principal) | CPT/HCPCS: 95806 ==

== ENCOUNTER 2024-02-12 13:00 | Outpatient (REF) | payer OTHER, SELFPAY ==
[2024-02-12 10:37] VITALS: PULSE 82; O2SAT 96
--- NOTE | 2024-02-12 12:30 | PFT_ITS ---
Flows: FEV1: 60 % of predicted at 1.60 L FVC: 75 % of predicted at 2.56 L FEV1/FVC: 63 % Bronchodilator response: Present Volumes: Total lung capacity: 84 % of predicted at 4.74 L Residual volume: 136 % of predicted at 2.60 L Slow vital capacity: 57 % of predicted at 2.14 L Expiratory reserve volume: 23 % of predicted at 0.23 L Diffusion capacity: Mildly decreased, corrects to normal after adjustment for alveolar ventilation. Impression: Moderate obstructive ventilatory defect with positive bronchodilator response. Increased residual volume suggests air trapping. Decreased expiratory reserve volume suggests extrathoracic restriction likely secondary to abdominal obesity. Decreased diffusion capacity suggests emphysema. MTDD
== END 2024-02-12 13:01 | disposition home or self-care (01) ==
LOC: HO.RESP 13:00
PROVIDERS: PCP Internal Medicine; Visit Provider Internal Medicine Pulmonary Disease
DX: J45.909 Unspecified asthma, uncomplicated (principal)
CPT/HCPCS: 94010; 94640; 94727; 94729

== ENCOUNTER 2024-02-22 13:33 | Outpatient (AMB) | payer OTHER, SELFPAY ==
[2024-02-22 13:40] VITALS: BP 150/90; PULSE 78; O2SAT 95; BMI 51.1
--- NOTE | 2024-02-22 13:40 | MHC.OFFVIS ---
Vital Signs 02/22/24 13:40 Height 5 ft 2 in Weight 279 lb 6 oz BMI 51.1 BP 150/90 H Blood Pressure Location Lt brachial Position Sitting Pulse 78 Pulse Source Doppler Pulse Oximetry (%) 95 Oxygen Delivery Method Room Air Intake Visit Reasons: PRINCESS/PFT & CT Follow Up Allergies trazodone Adverse Reaction (Severe, Verified 09/01/23 10:44) SOB hospiital tape Allergy (Unknown, Uncoded 08/31/23 12:28) Rash nebutol Allergy (Uncoded 08/31/23 12:28) Difficulty Breathing HPI HPI PRINCESS/PFT & CT Follow Up: Details: 68-year-old lady, former 40+ pack-year smoker, quit 3 years prior with underlying obesity followed by weight management, also asthma on Dulera/albuterol MDI, referred for evaluation of underlying PRINCESS. After the last office visit patient has completed her sleep study that showed underlying mild obstructive sleep apnea. She is interested in retrying using CPAP therapy. She also has completed her pulmonary function testing shows moderate COPD. She denies acute exacerbations, though her symptoms are suboptimally controlled on albuterol MDI and Dulera. [facility] Medical History (Updated 02/22/24 @ 14:16 by Santi Angulo MD) Elevated cholesterol History of MRSA infection Back pain COPD (chronic obstructive pulmonary disease) GERD (gastroesophageal reflux disease) Depression Anxiety Restless leg syndrome DJD (degenerative joint disease) CHF (congestive heart failure) Atrial fibrillation Myocardial infarct CAD (coronary artery disease) Hypertension Sleep apnea Morbid obesity Surgical History (Updated 08/31/23 @ 12:20 by Niya Ruelas CMA) History of removal of laparoscopic gastric banding device History of hip surgery Hx of cholecystectomy Hx of laparoscopic gastric banding Family History Maternal Grandfather Colon cancer Social History Household Members: Family Housing: House Are you a primary career transition specialist to a significant other at home: No Do you presently have visiting nurse or other home services: No Patient Tobacco Use Status: Former Tobacco user Tobacco use type: Cigarette service: No Review of Systems Const Denies daytime sleepiness, Denies excessive sweating, Denies fatigue, Denies fever(s), Denies lethargy, Denies malaise, Denies night sweats, Denies snoring and Denies weight loss Eyes Denies blurry vision and Denies itchy eyes ENT Denies nasal congestion, Denies post nasal drip, Denies sinus pain, Denies sinus pressure and Denies other ( Thrush) Card Denies chest pain, Denies pedal edema, Denies dyspnea, Denies orthopnea and Denies paroxysmal nocturnal dyspnea Resp Denies cough, Denies hemoptysis, Denies excessive phlegm production, Denies dyspnea, Denies snoring and Denies wheezing GI Denies abdominal pain and Denies heartburn Musc Denies myalgias, Denies arthralgias and Denies joint swelling Skin/Breast Denies rash Neuro Denies memory loss and Denies seizure-like activity Psych Denies abnormal sleep pattern, Denies anxiety and Denies memory loss Endo Denies excessive sweating, Denies fatigue and Denies heat intolerance Armen/Lymph Denies easy bruising Aller/Immun Denies itchy eyes, Denies seasonal rhinorrhea and Denies wheezing Physical Exam Vital Signs: Last Vital Signs Pulse 78 02/22/24 13:40 BP 150/90 H 02/22/24 13:40 Pulse Ox 95 02/22/24 13:40 Oxygen Delivery Method Room Air 02/22/24 13:40 BMI result Body Mass Index 51.1 Const General: no acute distress and alert Nutritional Appearance: obese Orientation/consciousness: Other orientation findings ( oriented) HEENT Head: Yes atraumatic Eyes General: appearance normal, both eyes and all related structures Sclerae: sclerae normal EOM: EOMs intact bilaterally Neck Neck: Yes supple Lymphatic: no lymphadenopathy noted Resp Effort & Inspection: normal respiratory effort and no use of accessory muscles Auscultation: clear to auscultation bilaterally Cardio Rate: regular rate Rhythm: regular rhythm Heart sounds: no gallops, no murmurs and no rubs Skin General skin exam: other ( warm) Extrem General: No clubbing, No cyanosis and No edema Assessment & Plan Assessment & Plan (1) Asthma-COPD overlap syndrome: Code(s): J44.89 - Other specified chronic obstructive pulmonary disease Category: Medical Plan: Suboptimally controlled on Dulera, will switch to Anoro. Results of pulmonary function test reviewed, underlying moderate obstructive ventilatory defect with significant bronchodilator response. (2) PRINCESS (obstructive sleep apnea): Code(s): G47.33 - Obstructive sleep apnea (adult) (pediatric) Category: Medical Plan: Results of home sleep study reviewed, underlying mild obstructive sleep apnea with AHI of 5.1. Will start on APAP of 6-16 cm of water. (3) Personal history of nicotine dependence: Code(s): Z87.891 - Personal history of nicotine dependence Category: Medical Plan: Lung cancer screening CT chest is pending. Medications: New umeclidinium-vilanterol 62.5-25 mcg/actuation (Anoro Ellipta) 1 inh inhalation DAILY 1 ea 6RF Coding Level of Care Code Est Pt Level 4 (94603) Diagnoses Asthma-COPD overlap syndrome J44.89 PRINCESS (obstructive sleep apnea) G47.33 Personal history of nicotine dependence Z87.891
--- OUTSIDE RECORDS SUMMARY | 2024-02-29 14:31 | XMS_ITS | Data Portability ---
Author Organization [employer] [employer] [facility] [employer] Address [address] [place] [id number] Care Team Providers Care Assistant Women'S Rowing Coach Name Role Phone [facility] Referring Provider Assessment Encounter Date Assessment Date Assessment LastModified by Organization Details LastModified Time 03/22/2023 03/22/2023 Ms. Mey Lyons is a 67yoF w/ a PmHx of COPD, HTN, PRINCESS, asthma, CHF, CAD who is seen today for fatigue and feeling unwell. Ms. Lyons reports that last week she was around her grandchild who was diagnosed with RSV. She states that shortly thereafter she began feeling unwell, with mild congestion, fatigue, headaches. This has been going on for the past week and today she requested an instED evaluation. She denies any change to her breathing/base line wheezing or cough and just generally feels fatigued and unwell. She has not taken anything for symptom control. Vital signs with an SpO2 of 93%, which patient reports is normal for her. Yard Attendant on site reports wheezing at the apices of both lungs, which patient again reports is her baseline. POC COVID and flu negative. Will send COVID PCR but recommended ongoing OTC therapy and treatment. She is comfortable managing any pulmonary symptoms and believes that she is largely at her baseline currently. She is comfortable with this plan and parking meter servicer on site will go through red flags. [email or web address] Not available 03/22/2023 11:21:40 Plan of Treatment Reminders Order Date Submit Date Provider Last Modified By Organization Details Last Modified Time Details Appointments None recorded. Lab unlisted lab - covid-19 (novel coronaviru s) PCR 2023 024 NEVIS [facility], [facility] [place], [address], 03:48:19 Referral None recorded. Procedures None recorded. Surgeries None recorded. Imaging None recorded. Medication Orders None recorded. Patient TargetsNo targets recorded. Patient InstructionsNo instructions recorded. Reason for Referral None Reported. Results Created Date Observation Date Name Description Value Unit Range Abnormal Flag Note LastModifiedBy Organization Detail LastModifiedTime 03/22/19 24 03/22/2023 COVID -19 (NOVE L CORON AVIRU S) PCR covid-19 PCR specimen source NASAL Not Available [facility] [address] [place], [id number], 03/24/2023 03:48:18 03/22/19 24 03/24/2023 COVID -19 (NOVE L CORON AVIRU S) PCR covid-19 PCR result (neg) NEGAT NATHALIE 2018- novel Coron aviru s (2018nCoV ) not detec patricia by real- time RT-PC R. Note: If clini anabela suspi cion for COVID -19 is high, mindi nue to maint ain preca ution s and consi zelda repea t testi ng. Resul t repor patricia to the [facility]. To preve nt error s in diagn osis, test resul ts shoul d be inter prete d in the jennifer xt of clini anabela findi ngs and other labor atory data. Rare polym orphi sms exist that could lead to false -nega tive or false -posi tive resul ts. If resul ts obtai shawn do not match the clini anabela findi ngs, addit ional testi ng shoul d be consi dered . This test has been autho rized by the FDA under an Emerg ency Use Autho rizat ion (EUA) for use by autho rized labor atori es. Testi ng perfo rmed by real time PCR utili [facility] [employer] SARS- CoV-2 test. Not Available [facility] [address] [place], [id number], 03/24/2023 03:48:18 Result Notes None recorded. Medical Equipment None Reported. Allergies Allergen ID Allergen Name Allergen Category Reaction Reaction Severity Criticality Documentation Date Start Date Code Code System Note Provider Name and Address Organization Details Recorded Time 8497 trazodone medicatio n Not available Not available Not available 01/18/2024 50137 RxNorm Not Available [facility] - production 4 03:44:41 Medications Name Sig Start Date Stop Date Status Note LastModified by Organization Details LastModified Time atorvastatin 80 mg tablet TAKE 1 TABLET BY MOUTH EVERYDAY AT BEDTIME active Not Available Not Available No t Available citalopram 40 mg tablet TAKE 1 TABLET BY MOUTH EVERY DAY active Not Available Not Available No t Available metoprolol succinate ER 100 mg tablet,exten ded release 24 hr TAKE 1 AND 1/2 TABLETS BY MOUTH EVERY DAY active Not Available Not Available No t Available spironolacto ne 25 mg tablet TAKE 1/2 TABLET BY MOUTH DAILY active Not Available Not Available Not Available lorazepam 0.5 mg tablet TAKE 1 TABLET BY MOUTH DAILY AT BEDTIME NEEDED FOR ANXIETY active Not Available Not Available Not Available ropinirole 0.25 mg tablet TAJE 1 TAB AT BEDTIME FOR 1 WEEK THEN INCREASE TO 2 TABS AT NIGHT FOR 1 WEEK THEN 3 TABS EVERY NIGHT active Not Available Not Available No t Available amlodipine 10 mg tablet TAKE 1 TABLET BY MOUTH EVERY DAY active Not Available Not Available No t Available warfarin 5 mg tablet TAKE 1/2 TO 1 TABLET BY MOUTH DAILY DIRECTED BY [facility]ADIN CLINIC active Not Available Not Available No t Available furosemide 20 mg tablet TAKE 1 TABLET BY MOUTH EVERY DAY active Not Available Not Available No t Available metoprolol succinate ER 25 mg tablet,exten ded release 24 hr TAKE 1 TABLET BY MOUTH EVERY DAY WITH 50MG TABLET active Not Available Not Available Not Available ferrous sulfate 325 mg (65 mg iron) tablet,delay ed release TAKE 1 TABLET BY MOUTH TWICE A DAY active Not Available Not Available No t Available aripiprazole 5 mg tablet TAKE 1 TABLET BY MOUTH DAILY, TO BE COMBINED WITH THE CITALOPRAM THERAPY active Not Available Not Available No t Available Dulera 100 mcg-5 mcg/actuatio n HFA aerosol inhaler INHALE 2 PUFFS TWICE A DAY active Not Available Not Available No t Available Entresto 24 mg-26 mg tablet TAKE 1 TABLET BY MOUTH TWICE A DAY active Not Available Not Available No t Available Vitals Date Recorded Oxygen saturation Oxygen saturation in Arterial blood by Pulse oximetry Respiratory rate Body temperature Body weight Heart rate Systolic blood pressure Diastolic blood pressure Provider Name and Address Organization Details Last Updated DateTime 4 93 % 93 % 18 /min 98.9 [degF] 912705. 84 g 74 /min 142 mm[Hg] 82 mm[Hg] Not Available [facility] production 10:56:32 Social History None recorded. Functional Status None recorded. Mental Status None recorded. Family History Nothing Reported. Medical History No medical history recorded. Gynecological HistoryNo gynecological history recorded. Obstetrics History GPAL:G 0 P 0 0 0 0 Past Encounters Encounter ID Performer Location Encounter Start Date Encounter Closed Date Diagnosis/Indication Diagnosis SNOMED-CT Code Diagnosis ICD10 Code [id number] Ksenia Palacio MD [facility] - [facility] [address] [place] [id number] 03/22/2023 10:56:30 03/23/2023 12:44:05 Upper respiratory infection 49212325 J06.9 Health Concerns Section Related Observation LastModified by Organization Detai ls LastModified Time None Recorded Concern Status LastModified by Organization Details LastModified Time None Recorded Advance Directives Directive None Recorded Payers Encounter Date Sequence Insurance Name Policy Number Policy Thompson Covered Member ID Thompson Member ID Guarantor Name 03/22/2023 1 [facility] - DOS ON OR AFTER 2022 - DUAL ELIGIBLE - FPC OPTIONS AND ONE CARE (MEDICARE REPLACEMENT/ADV ANTAGE - HMO) Mey Lyons [id number] Mey Lyons Notes Date Note Type Note Provider Name and Address Organization Details Recorded Time 03/22/2023 text/html HPI: Ana is a 67 yo female with significant hx including acute on chronic CHF, Afib, Non ST elevation [place], HLD, MDD, OA, Anxiety, Opioid dependence, Morbid Obesity, Hypertensive retinopathy, cataracts, disc disorder, urinary leakage, and chronic pain. Allergies to cordan tape, Nembutal, Trazodone, and Chantix. MSR transferred call to this CRU RN and Mbr reports one week hx of UR s/s including cough, sinus and nasal congestion, body aches and headaches. Mbr denies SOB, chest pain or fever. Offered [facility] INSTED HV and she agreed. Confirmed phone number and address. Best number to reach Mbr is [phone]. Sent in INSTED referral however instructed Mbr to call 911 if she develops worsening S/S, sob, chest pain and she agreed to do. Sent GC activity to as an FYI that this CRU RN placed INSTED HV for today. ................... ................... ................... ................... ................... ................... ................... ........ CRC Nurse Triage Notes (Catarino Valera): Comments: Reviewed - Melissa AVERY ................... ................... ................... ................... ................... ................... ................... ........ Yard Attendant Note From Marco A Deshpande: Encountered patient, seated, upright, and conscious, with family present. Patient reports five days of URI symptoms after being exposed to her grandson, who has a confirmed case of RSV. Patient denies any changes in her breathing status, chest pain or changes in vision. Patient expresses she has medication compliant with her inhaler and only uses it as needed, states frequency has not changed over the past five days. Flu and Covid swabs performed. Both resulted negative; [facility] advised. Patient also inquisitive on the status of Tylenol as she was told by a separate provider that she could no longer take Tylenol because she is taking Coumadin, patient reassured that the physician would be notified of her concerns, and she would receive an answer about Tylenol. Skin warm, dry end of appropriate color for ethnicity. Head and neck, free of trauma and edema. Breath sounds exhibit expiratory wheezes in all chang, patient states is baseline for her as she has COPD and asthma. Abdomen soft, non-tender, and non-distended. Extremities are free of trauma and edema. [facility] contacted: states patient is safe to take Tylenol at home for her symptoms, Covid PCR performed. PCR to go to [facility] laboratory. Red flags discussed with patient, patient advised to seek further medical attention including 911 should she began experiencing chest pain or shortness of breath. Patient verbalizes understanding and states she would like to remain at home at this time. Yard Attendant Allergies: Trazodone ................... ................... ................... ................... ................... ................... ................... ........ Disposition: Fulfilled Ksenia Palacio MD [address] [facility],[address], [place], [phone], [employer] - [email or web address] 03/22/2023 11:21:44 OBGyn Episode No OBEpisode recorded.
== END 2024-02-22 14:08 | disposition home or self-care (01) ==
PROVIDERS: PCP Internal Medicine; Visit Provider Internal Medicine Pulmonary Disease
DX: J44.89 Other specified chronic obstructive pulmonary disease (principal); G47.33 Obstructive sleep apnea (adult) (pediatric); Z87.891 Personal history of nicotine dependence
CPT/HCPCS: 99214

== ENCOUNTER → 2024-02-22 13:33 | Outpatient (BNVA) | payer OTHER, SELFPAY | PROVIDERS: PCP Internal Medicine; Visit Provider Internal Medicine Pulmonary Disease | DX: G47.33 Obstructive sleep apnea (adult) (pediatric) (principal); J44.89 Other specified chronic obstructive pulmonary disease; E66.9 Obesity, unspecified; Z68.43 Body mass index [BMI] 50.0-59.9, adult; Z99.89 Dependence on other enabling machines and devices; Z87.891 Personal history of nicotine dependence | CPT/HCPCS: 99212 ==

== ENCOUNTER 2024-02-24 09:43 | Outpatient (REF) | payer OTHER, SELFPAY ==
[2024-02-24 10:28] LABS: MANUAL DIFF FLAG NO
[2024-02-24 11:07] LABS: Basophils Absolute Auto 0.1 X10*3/uL (0.0-0.2); Basophils Percent Auto 0.5 % (0-2); Eosinophils Absolute Auto 0.2 X10*3/uL (0.0-0.4); Eosinophils Percent Auto 1.7 % (0-4); Hematocrit 38.7 % (37.0-47.0); Hemoglobin 12.2 g/dl (12.0-16.0); Imm Gran Abs Auto 0.03 X10*3/uL (0.00-0.03); Imm Gran Pct Auto 0.3 % (0.0-0.4); Lymphocytes Absolute Auto 1.4 X10*3/uL (1.2-4.9); Lymphocytes Percent Auto 14.7 % (20-40); Mean Corpuscular HGB Conc 31.5 g/dl (31.0-35.0); Mean Corpuscular Hemoglobin 29.4 pg (27.0-33.0); Mean Corpuscular Volume 93.3 fL (80.0-98.0); Mean Platelet Volume 10.1 fL (9.4-12.3); Monocytes Absolute Auto 0.5 X10*3/uL (0.1-1.2); Monocytes Percent Auto 5.5 % (2-11); Neutrophils Absolute Auto 7.4 x10*3/uL (2.0-8.3); Neutrophils Percent Auto 77.3 % (45-73); Platelet Count 187 X10*3/uL (160-400); Red Blood Count 4.15 X10*6/uL (4.20-5.50); White Blood Count 9.5 X10*3/uL (4.8-10.8)
[2024-02-24 11:08] LABS: Estimated Average Glucose 111 mg/dL; Hemoglobin A1C 112.7572 umol/L; Hemoglobin A1c % 5.5 % (<6.0); Total Hemoglobin (HGBA1C) 3096.3383 umol/L
[2024-02-24 11:35] LABS: Alanine Aminotransferase 13 U/L (0-31); Albumin Level 3.7 g/dL (3.5-5.0); Alkaline Phosphatase 82 U/L (39-117); Anion Gap 11 (12-20); Aspartate Amino Transferase 18 U/L (5-31); Bilirubin Total 0.7 mg/dL (0.0-1.0); Blood Urea Nitrogen 16 mg/dL (9-16); Carbon Dioxide 31 mmol/L (22-29); Chloride 104 mmol/L (96-108); Estimated Glomerular Filt Rate > 60; Glucose Random 94 mg/dL (60-115); Potassium 4.9 mmol/L (3.3-5.1); Sodium 141 mmol/L (135-145); Total Protein 6.5 g/dL (6.5-8.0)
== END 2024-02-24 09:44 | disposition home or self-care (01) ==
LOC: HO.LAB 09:43
PROVIDERS: PCP Internal Medicine; Visit Provider Surgery
DX: E66.01 Morbid (severe) obesity due to excess calories (principal); I10 Essential (primary) hypertension; R73.9 Hyperglycemia, unspecified
CPT/HCPCS: 36415; 80053; 83036; 85025

== ENCOUNTER 2024-03-08 09:12 | Outpatient (REF) | payer OTHER, SELFPAY ==
--- OUTSIDE RECORDS SUMMARY | 2024-03-08 09:17 | XMS_ITS | Data Portability ---
Author Organization [employer] [employer] [facility] [employer] Address [address] [place] [phone] Care Team Providers Care Log Deck Tender Name Role Phone [facility] Referring [...] which patient reports is normal for her. Guest Service Host on site reports wheezing at the apices of both lungs, which patient again reports is her baseline. POC COVID and flu negative. Will send COVID PCR but recommended ongoing OTC therapy and treatment. She is comfortable managing any pulmonary symptoms and believes that she is largely at her baseline currently. She is comfortable with this plan and car chaser on site will go through red flags. [email or web address] Not available 03/22/2023 11:21:40 Plan of Treatment Reminders Order Date Submit Date Provider Last Modified By Organization Details Last Modified Time Details Appointments None recorded. Lab unlisted lab - covid-19 (novel coronaviru s) PCR 2023 024 PETROLEUM [facility], [facility] [place], [address], 03:48:19 Referral None recorded. Procedures None recorded. [...] [facility] [address] [place], [id number], 03/24/2023 03:48:18 03/22/19 24 03/24/2023 COVID -19 [...] ng. Resul t repor patricia to the [facility]. To preve nt error s in diagn [...] perfo rmed by real time PCR utili [facility] [employer] SARS- CoV-2 test. Not Available [facility] [address] [address] [place], [id number], 03/24/2023 03:48:18 Result Notes None recorded. Medical Equipment None Reported. Allergies Allergen ID Allergen Name Allergen Category Reaction Reaction Severity Criticality Documentation Date Start Date Code Code System Note Provider Name and Address Organization Details Recorded Time 8497 trazodone medicatio n Not available Not available Not available 01/18/2024 35964 RxNorm Not Available [facility] - production 4 [...] % 93 % 18 /min 98.9 [degF] 026789. 84 g 74 /min 142 mm[Hg] 82 [...] Diagnosis/Indication Diagnosis SNOMED-CT Code Diagnosis ICD10 Code [id number] Ksenia Palacio MD Main - [facility] [address] [place] [phone] 03/22/2023 10:56:30 03/23/2023 12:44:05 Upper respiratory infection 47047490 J06.9 Health Concerns Section Related Observation LastModified by Organization Detai ls LastModified Time None Recorded Concern Status LastModified by Organization Details LastModified Time None Recorded Advance Directives Directive None Recorded Payers Encounter Date Sequence Insurance Name Policy Number Policy Thompson Covered Member ID Thompson Member ID Guarantor Name 03/22/2023 1 [facility] - DOS ON OR AFTER 2022 - DUAL ELIGIBLE - SENIOR LIVING OPTIONS AND ONE CARE (MEDICARE REPLACEMENT/ADV ANTAGE - HMO) Mey Lyons [id number] Mey Lyons Notes Date Note Type Note Provider Name and Address Organization Details Recorded Time 03/22/2023 text/html HPI: Ana is a 67 yo female with significant hx including acute on chronic CHF, Afib, Non ST elevation [place], HLD, MDD, OA, Anxiety, Opioid dependence, Morbid Obesity, Hypertensive retinopathy, cataracts, disc disorder, urinary leakage, and chronic pain. Allergies to cordan tape, Nembutal, Trazodone, and Chantix. MSR transferred call to this CRU RN and Mbr reports one week hx of UR s/s including cough, sinus and nasal congestion, body aches and headaches. Mbr denies SOB, chest pain or fever. Offered [facility] INSTED HV and she agreed. Confirmed phone number and address. Best number to reach Mbr is [phone]. Sent in INSTED referral however instructed Mbr [...] ................... ................... ................... ................... ................... ................... ........ Guest Service Host Note From Marco A Deshpande: Encountered patient, [...] and Covid swabs performed. Both resulted negative; [facility] advised. Patient also inquisitive on the status [...] Extremities are free of trauma and edema. [facility] contacted: states patient is safe to take Tylenol at home for her symptoms, Covid PCR performed. PCR to go to [facility] laboratory. Red flags discussed with patient, patient advised to seek further medical attention including 911 should she began experiencing chest pain or shortness of breath. Patient verbalizes understanding and states she would like to remain at home at this time. Guest Service Host Allergies: Trazodone ................... ................... ................... ................... ................... ................... ................... ........ Disposition: Fulfilled Ksenia Palacio MD [address] [facility],[address], [place], [phone], [employer] 03/22/2023 11:21:44 OBGyn Episode No OBEpisode recorded.
== END 2024-03-08 09:13 | disposition home or self-care (01) ==
LOC: HO.CT 09:12
PROVIDERS: PCP Internal Medicine; Visit Provider Internal Medicine Pulmonary Disease
DX: Z12.2 Encounter for screening for malignant neoplasm of respiratory organs (principal); Z87.891 Personal history of nicotine dependence
CPT/HCPCS: 71271

== ENCOUNTER → 2024-03-08 09:14 | Outpatient (BNV) | payer OTHER, SELFPAY | PROVIDERS: PCP Internal Medicine; Visit Provider Radiology Diagnostic Radiology | DX: Z12.2 Encounter for screening for malignant neoplasm of respiratory organs (principal); Z87.891 Personal history of nicotine dependence; R91.8 Other nonspecific abnormal finding of lung field | CPT/HCPCS: 71271 ==

== ENCOUNTER → 2024-04-24 20:30 | Outpatient (REF) | payer OTHER, SELFPAY ==
--- OUTSIDE RECORDS SUMMARY | 2024-04-24 22:04 | XMS_ITS | Continuity of Care Document ---
Author Organization [facility] Address [address] [place] [id number]- [facility] Name Relationship Address Phone ELYSSA ALFREDO Personal Relationship Unknown Diane vailable ELYSSA ALFREDO Personal Relationship Unknown Diane vailable CONNOR, JANET sibling Unknown Unavailable KASHIF, TUTU sibling Unknown Unavailabl e Care Team Providers Care Locum Tenens Name Role Phone Jose Martinez MD Primary Care Physician [place] [facility] [place](s[place] 12/20/23 - 03/30/24 [facility] [address] [place] [id number] Attending Physician: Ruth Kiser MD Encounter Type: Pre Office Visit Allergies, Adverse Reactions, Alerts Substance Criticality Severity Reaction Reaction Severity Status Nembutal Hyperventalating Act eliseo traZODone daytime gogginess Ac tive Cordran Tape BLISTERS Active Chantix Active Immunizations Given and Recorded Vaccine Date Status Refusal Reason zoster vaccine, inactivated 10/22/23 Recorded zoster vaccine, inactivated 02/04/22 Recorded tetanus/diphtheria/pertussis, acel(Tdap) 10/22/23 Recorded tetanus/diphtheria/pertussis, acel(Tdap) 10/20/19 Given pneumococcal 20-valent conjugate vaccine 1 05/21/23 Given [...] Gi lincoln tetanus-diphtheria toxoids (Td) 02/05/22 Given SARS-CoV-2 (COVID-19) mRNA-1273 vaccine 03/31/21 R ecorded SARS-CoV-2 (COVID-19) mRNA-1273 vaccine 06/26/20 R ecorded SARS-CoV-2 (COVID-19) mRNA-1273 vaccine 05/28/20 R ecorded Influenza Virus Vaccine (oldterm) 01/15/20 Recorde d FluLaval (oldterm) 6 03/08/12 Given Pneumococcal Poly (PPV23) (oldterm) 06/02/11 Given Tet/Diphth/Acel, Pertussis (oldterm) 7 02/25/09 Gi lincoln influ virus vac, H1N1, inactive(oldterm) 8 01/21/09 Given 1Result Comment: [facility]:[id number] 2Result Comment: [facility]:[id number] 3Result Comment: [01/19/2018] [id number] 4Admin Note: [employer]. no contraindications per patient 5Admin Note: [employer]. no contraindications per patient 6Admin Note: [employer] [facility] 7Admin Note: [employer] 8Admin Note: Novaritis Medications Albuterol (Eqv-ProAir HFA) 2 puffs, Inhalation, Every 6 hours, 0 Refills, Maintenance, 10/13/21 1:54:00 PM EDT, Partial fill upon patient request if the prescription is for a schedule II opioid drug. Start Date: 10/13/21 Status: Ordered Repeat number: 1 amLODIPine 10 mg oral tablet 1 tablet, By Mouth, Daily, # 90 tablet, 1 Refills, Maintenance, 03/14/24 9:09:00 AM EST, [facility], 154, cm, 10/18/23 14:36:00 EDT, Height Start Date: 03/14/24 Status: Ordered Quantity: 90.0 Unit: tablet Repeat number: 1 Anoro Ellipta 62.5 mcg-25 mcg/inh inhalation powder 1 puffs, Inhalation, Daily, # 60 each, 0 Refills, Maintenance, 02/23/24 9:45:00 AM EST, Powder, Partial fill upon patient request if the prescription is for a schedule II opioid drug. Start Date: 02/23/24 Status: Ordered Quantity: 60.0 Unit: each Repeat number: 1 ARIPiprazole 5 mg oral tablet 1, tablet, By Mouth, Daily, # 90 tablet, Refills 1, Maintenance, 03/14/24 9:09:00 AM EST, Route to Pharmacy Electronically, [facility]113, 154, cm, 10/18/23 14:36:00 EDT, Height Start Date: 03/14/24 Status: Ordered Quantity: 90.0 Unit: tablet Repeat number: 1 aspirin 81 mg oral delayed release tablet 81 mg, By Mouth, Daily, # 30 tablet, Refills 11, Tot. Refills 11, Maintenance, 06/12/21 9:27:00 AM EDT, Route to Pharmacy Electronically, [facility], Partial fill upon patient request ifthe prescription is for a schedule II opioid drug., 157.48, cm, 06/10/21 17:04:00 EDT, Height, 111,kg, 06/10/21 15:06:00 EDT, Dry Weight Start Date: 06/12/21 Stop Date: 06/07/22 Status: Ordered Quantity: 30.0 Unit: tablet Repeat number: 12 Ativan 0.5 mg oral tablet 1 tablet = 0.5 mg, By Mouth, Daily at bedtime, PRN as needed for anxiety, # 30 tablet, 5 Refills, Maintenance, 11/16/23 8:58:00 AM EDT, Tablet, [facility]/pharmacy #[id number], Partial fill upon patient request ifthe prescription is for a schedule II opioid drug., 154, cm, 10/18/23 14:36:00 EDT, Height Start Date: 11/16/23 Status: Ordered Quantity: 30.0 Unit: tablet Repeat number: 6 atorvastatin 80 mg oral tablet 1 tablet, By Mouth, Daily at bedtime, # 90 tablet, 1 Refills, Maintenance, 03/16/24 8:14:00 AM EST,[facility], 154, cm, 10/18/23 14:36:00 EDT, Height Start Date: 03/16/24 Status: Ordered Quantity: 90.0 Unit: tablet Repeat number: 1 atorvastatin 80 mg oral tablet 1 tablet, By Mouth, Daily at bedtime, # 90 tablet, 1 Refills, Maintenance, 12/14/23 3:13:00 PM EDT, [facility], 154, cm, 10/18/23 14:36:00 EDT, Height Start Date: 12/14/23 Status: Ordered Quantity: 90.0 Unit: tablet Repeat number: 1 ATORVASTATIN 80 MG TABLET ATORVASTATIN 80 MG TABLET, 1, tablet, By Mouth, Daily at bedtime, # 90 tablet, 1 Refills, Maintenance, 03/30/23 11:11:00 AM EST, 157.48, cm, 11/17/22 16:49:00 EDT, Height, 111, kg, 06/10/21 15:06:00 EDT, Dry Weight Start Date: 03/30/23 Status: Ordered Quantity: 90.0 Unit: tablet Repeat number: 1 citalopram 40 mg oral tablet 1 tablet, By Mouth, Daily, # 90 tablet, 1 Refills, Maintenance, 11/16/23 8:57:00 AM EDT, [facility]238, 154, cm, 10/18/23 14:36:00 EDT, Height Start Date: 11/16/23 Status: Ordered Quantity: 90.0 Unit: tablet Repeat number: 1 CPAP Machine See Instructions, # 1 each, Maintenance, AutoCPAP 6-12 cm H20, use Daily when sleeping 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, 12/22/21 11:06:00 AM EDT, Supply Start Date: 12/22/21 Status: Ordered Quantity: 1.0 Unit: each Repeat number: 1 Daily Erica oral tablet See Instructions, TAKE 1 TABLET BY MOUTH EVERY DAY, # 90 tablet, 1 Refills, [facility], 90, TAKE 1 TABLET BY MOUTH EVERY DAY, 157.48, cm, 08/12/21 10:44:00 EDT, Height, 111, kg, 06/10/21 15:06:00 EDT, Dry Weight Start Date: 10/31/21 Status: Ordered Quantity: 90.0 Unit: tablet Repeat number: 1 DAILY ERICA TABLET DAILY ERICA TABLET, 1, tablet, By Mouth, Daily, # 90 tablet, 3 Refills, Maintenance, 02/23/22 8:50:00AM EST, 157.48, cm, 01/20/22 14:40:00 EDT, Height, 111, kg, 06/10/21 15:06:00 EDT, Dry Weight Start Date: 02/23/22 Status: Ordered Quantity: 90.0 Unit: tablet Repeat number: 1 Eliquis 5 mg oral tablet 1 tablet = 5 mg, By Mouth, 2 times a day, # 180 tablet, 11 Refills, Maintenance, 06/25/23 9:17:00 AM EDT, Tablet, [facility]/pharmacy #2339, Partial fill upon patient request if the prescription is for a schedule II opioid drug., 154, cm, 06/25/23 9:05:00 EDT, Height Start Date: 06/25/23 Status: Ordered Quantity: 180.0 Unit: tablet Repeat number: 12 Entresto 97 mg-103 mg oral tablet 1 tablet, By Mouth, 2 times a day, # 180 tablet, 3 Refills, Maintenance, 10/18/23 7:23:00 AM EDT, [facility] [address]2741, 90, TAKE 1 TABLET BY MOUTH TWICE A DAY, 154, cm, 10/05/23 13:41:00 EDT, Height Start Date: 10/18/23 Status: Ordered Quantity: 180.0 Unit: tablet Repeat number: 1 ferrous sulfate 325 mg oral enteric coated tablet 1, tablet, By Mouth, 2 times a day, # 180 tablet, Refills 1, Maintenance, 07/26/22 7:26:00 AM EDT, Route to Pharmacy Electronically, [facility] 37309, 157.48, cm, 05/18/22 9:48:00 EST, Height, 111, kg, 06/10/21 15:06:00 EDT, Dry Weight Start Date: 07/26/22 Status: Ordered Quantity: 180.0 Unit: tablet Repeat number: 1 furosemide 20 mg oral tablet 1, tablet, By Mouth, Daily, # 90 tablet, Refills 1, Maintenance, 03/10/24 7:30:00 AM EST, Route to Pharmacy Electronically, [facility]75, 154, cm, 10/18/23 14:36:00 EDT, Height Start Date: 03/10/24 Status: Ordered Quantity: 90.0 Unit: tablet Repeat number: 1 LORazepam 0.5 mg oral tablet 30 each, 0 Refill(s), TAKE 1 TABLET BY MOUTH EVERY DAY NEEDED FOR ANXIETY AT BEDTIME, 0 Refills,06/22/23 8:03:00 AM EDT, Partial fill upon patient request if the prescription is for a schedule II opioid drug. Start Date: 06/22/23 Status: Ordered Repeat number: 1 Metoprolol Succinate ER 200 mg oral tablet, extended release 1 tablet, By Mouth, Daily, # 90 tablet, 1 Refills, Maintenance, 03/16/24 8:14:00 AM EST, [facility]46, 154, cm, 10/18/23 14:36:00 EDT, Height Start Date: 03/16/24 Status: Ordered Quantity: 90.0 Unit: tablet Repeat number: 1 Metoprolol Succinate ER 200 mg oral tablet, extended release 1 tablet, By Mouth, Daily, # 90 tablet, 1 Refills, Maintenance, 12/09/23 9:50:00 AM EDT, [facility]/pharmacy #2339, 154, cm, 10/18/23 14:36:00 EDT, Height Start Date: 12/09/23 Status: Ordered Quantity: 90.0 Unit: tablet Repeat number: 2 rOPINIRole 0.25 mg oral tablet 3 tablet = 0.75 mg, By Mouth, Daily at bedtime, # 270 tablet, 3 Refills, Maintenance, 07/20/23 10:38:00 AM EDT, [facility]/pharmacy #2339, 154, cm, 06/25/23 9:05:00 EDT, Height Start Date: 07/20/23 Status: Ordered Quantity: 270.0 Unit: tablet Repeat number: 4 spironolactone 25 mg oral tablet 1, tablet, By Mouth, Daily, # 90 tablet, Refills 1, Maintenance, 03/10/24 7:30:00 AM EST, Route to Pharmacy Electronically, [facility] 40115, 154, cm, 10/18/23 14:36:00 EDT, Height Start Date: 03/10/24 Status: Ordered Quantity: 90.0 Unit: tablet Repeat number: 1 Problem List Condition Confirmation Course Effective Dates Status H ealth Status Informant Asthma Confirmed Active Asthma-COPD overlap syndrome Confirmed Active Atrial fibrillation Confirmed Active Back pain 1 Confirmed Active Cardiomyopathy Confirmed Active Major depression, chronic Confirmed Active CHF (congestive heart failure) (TIFB63-58% on echo 2019) Confirmed Active Coronary artery disease Confirmed Active Opiate analgesic contract exists Confirmed Active Generalized anxiety disorder Confirmed Active 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 Active Hip pain 2 Confirmed Active [...] June 2021; entered on: 05/18/22 Sex Female Sex Representation Female (finding) Patient Care team information Care Team Personnel Name: Radha Villela Position: [facility] RN Supv Member Role: Primary Care Nurse Name: Nichole Coates RN Position: [facility] SN RN Member Role: Primary Care Nurse Name: Ksenia Herzog RN Position: [facility] RN Member Role: Primary Care Nurse Name: Leatha Walsh RN Position: [facility] SN RN Member Role: Primary Care Nurse Name: Milagro Sims RN Position: [facility] ANGEL Nurse Member Role: Primary Care Nurse Name: Anne Gonzalez RN Position: [facility] RN Member Role: Primary Care Nurse Name: Mckayla Wilcox RN Position: [facility] SN RN Member Role: Primary Care Nurse Name: Simin Chen RN Position: [facility] RN Member Role: Primary Care Nurse Name: Jose Martinez MD Position: [facility] Physician - Primary Care Member Role: PCP Address: [address] [place] [id number] Tele[employer]: Name: Aleks Merchant RN Position: [facility] RN Member Role: Primary Care Nurse Name: Genet Bowman RN Position: [facility] SN RN Member Role: Primary Care Nurse Name: Ilana Burns RN Position: [facility] RN Member Role: Primary Care Nurse Care Team Related Persons Name: TUTU ROWLAND Name: JANET CONNOR Insurance Providers Guarantor name: ELYSSA ALFREDO Health Plan Information #: 1 Payer: NA Member Number: [id number] Policy Number: NA Group Number: NA Health Plan Information #: 2 Payer: NA Member Number: [id number] Policy Number: NA Group Number: NA
--- OUTSIDE RECORDS SUMMARY | 2024-04-24 22:04 | XMS_ITS | Data Portability ---
Author Organization [employer] Address [address] [place] [id number] Care Team Providers Care Operation Supervisor Name Role Phone [facility] Referring Provider [phone] Assessment Encounter Date Assessment Date Assessment LastModified [...] which patient reports is normal for her. Credentialing Specialist on site reports wheezing at the apices of both lungs, which patient again reports is her baseline. POC COVID and flu negative. Will send COVID PCR but recommended ongoing OTC therapy and treatment. She is comfortable managing any pulmonary symptoms and believes that she is largely at her baseline currently. She is comfortable with this plan and obstetric anaesthetist on site will go through red flags. [email or web address] Not available 03/22/2023 11:21:40 Plan of Treatment Reminders Order Date Submit Date Provider Last Modified By Organization Details Last Modified Time Details Appointments None recorded. Lab unlisted lab - covid-19 (novel coronaviru s) PCR 2023 024 D[address]INSON [facility], [facility] [place], [address], 03:48:19 Referral None recorded. Procedures None recorded. [...] [facility] [address] [place], [address], 03/24/2023 03:48:18 03/22/19 24 03/24/2023 COVID -19 [...] ng. Resul t repor patricia to the [facility]. To preve nt error s in diagn [...] perfo rmed by real time PCR [facility] LOI MDdatacor0 SARS- CoV-2 test. Not Available [facility] [address] [place], [address], 03/24/2023 03:48:18 Result Notes None recorded. Medical Equipment None Reported. Allergies Allergen ID Allergen Name Allergen Category Reaction Reaction Severity Criticality Documentation Date Start Date Code Code System Note Provider Name and Address Organization Details Recorded Time 8497 trazodone medicatio n Not available Not available Not available 01/18/2024 21007 RxNorm Not Available [facility] - production 4 [...] % 93 % 18 /min 98.9 [degF] 681400. 84 g 74 /min 142 mm[Hg] 82 [...] Diagnosis/Indication Diagnosis SNOMED-CT Code Diagnosis ICD10 Code Diagnosis Note 10766 Ksenia Palacio MD Main - [facility] [address] [place] [id number] 03/22/2023 10:56:30 03/23/2023 12:44:05 Upper respiratory infection 04019006 J06.9 Health Concerns Section Related Observation LastModified by Organization Detai ls LastModified Time None Recorded Concern Status LastModified by Organization Details LastModified Time None Recorded Advance Directives Directive None Recorded Payers Encounter Date Sequence Insurance Name Policy Number Policy Thompson Covered Member ID Thompson Member ID Guarantor Name 03/22/2023 1 [facility] - DOS ON OR AFTER 2022 - DUAL ELIGIBLE - USP OPTIONS AND ONE CARE (MEDICARE REPLACEMENT/ADV ANTAGE - HMO) Mey Lyons [id number] Mey Lyons Notes Date Note Type Note Provider Name and Address Organization Details Recorded Time 03/22/2023 text/html HPI: Ana is a 67 yo female with significant hx including acute on chronic CHF, Afib, Non ST elevation [place], HLD, MDD, OA, Anxiety, Opioid dependence, Morbid Obesity, Hypertensive retinopathy, cataracts, disc disorder, urinary leakage, and chronic pain. Allergies to cordan tape, Nembutal, Trazodone, and Chantix. MSR transferred call to this CRU RN and Mbr reports one week hx of UR s/s including cough, sinus and nasal congestion, body aches and headaches. Mbr denies SOB, chest pain or fever. Offered [facility] INSTED HV and she agreed. Confirmed phone number and address. Best number to reach Mbr is [phone]. Sent in INSTED referral however instructed Mbr to call 911 if she develops worsening S/S, sob, chest pain and she agreed to do. Sent GC activity to CP as an FYI that this CRU RN placed INSTED HV for today. ................... ................... ................... ................... ................... ................... ................... ........ CRC Nurse Triage Notes (Catarino Valera): Comments: Reviewed - Melissa AVERY ................... ................... ................... ................... ................... ................... ................... ........ Credentialing Specialist Note From Marco A Deshpande: Encountered patient, [...] and Covid swabs performed. Both resulted negative; [facility] advised. Patient also inquisitive on the status [...] Extremities are free of trauma and edema. [facility] contacted: states patient is safe to take Tylenol at home for her symptoms, Covid PCR performed. PCR to go to [facility] laboratory. Red flags discussed with patient, patient advised to seek further medical attention including 911 should she began experiencing chest pain or shortness of breath. Patient verbalizes understanding and states she would like to remain at home at this time. Credentialing Specialist Allergies: Trazodone ................... ................... ................... ................... ................... ................... ................... ........ Disposition: Annmarie Palacio MD [address] [facility],[address], [place], [phone], [employer] 03/22/2023 11:21:44 OBGyn Episode No OBEpisode recorded.
--- OUTSIDE RECORDS SUMMARY | 2024-04-24 22:04 | XMS_ITS | Continuity of Care Document ---
Author Organization [facility] Address [address] [place] [address]- Care Team Providers Care Senior Clinical Sas Programmer Name Role Phone Jose Martinez MD Primary Care Physician [phone] Encounter [facility] [place] Date(s): 04/06/24 - 04/13/24 [facility] [place] [address]- Encounter Diagnosis Productive cough(Discharge Diagnosis) - 04/06/24 Heart failure with improved ejection fraction (HFimpEF)(Discharge Diagnosis) - 04/06/24 Hypertension(Discharge Diagnosis) - 04/06/24 Atrial fibrillation(Discharge Diagnosis) - 04/06/24 Secondary hypercoagulable state(Discharge Diagnosis) - 04/06/24 Asthma-COPD overlap syndrome(Discharge Diagnosis) - 04/06/24 Attending Physician: Brian Mchugh Encounter Type: Office Visit Allergies, Adverse Reactions, Alerts Substance [...] H1N1, inactive(oldterm) 8 01/21/09 Given 1Result Comment: [facility]:[id number] 2Result Comment: [facility]:[id number] 3Result Comment: [01/19/2018] [id number] 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 manufacturers. no contraindications per patient 5Admin Note: [employer] manufacturers. no contraindications per patient 6Admin Note: [employer] [facility] 7Admin Note: [employer] 8Admin Note: Novaritis Problem List Condition Confirmation Course Effective Dates Status H ealth Status Informant Asthma Confirmed Active Asthma-COPD overlap syndrome Confirmed Active Atrial fibrillation Confirmed Active Back pain 1 Confirmed Active Cardiomyopathy Confirmed Active Major depression, chronic Confirmed Active CHF (congestive heart failure) (IZUL35-06% on echo 2019) Confirmed Active Coronary artery disease Confirmed Active Opiate analgesic contract exists Confirmed Active Generalized anxiety disorder Confirmed Active 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 Active Hip pain 2 Confirmed Active Hip replacement 3 Confirmed Active Secondary hypercoagulable state Confirmed Active Hyperlipidemia Confirmed Active Hypertension Confirmed [...] Effective Dates Health Status Clinical Service Informant Productive cough Discharge Diagnosis 04/06/24 Heart failure with improved ejection fraction (HFimpEF) Discharge Diagnosis 04/06/24 Hypertension Discharge Diagnosis 04/06/24 Atrial fibrillation Discharge Diagnosis 04/06/24 Secondary hypercoagulable state Discharge Diagnosis 04/06/24 Asthma-COPD overlap syndrome Discharge Diagnosis 04/06/24 Vital Signs Most recent to oldest [Reference Range]: 1 Height 154 cm (04/06/24 9:30 AM) Weight 126.9 kg (04/06/24 9:30 AM) Oxygen Saturation [94-100 %] 95 % (04/06/24 9:30 AM) Pulse Rate [55-90 bpm] 59 bpm (04/06/24 9:30 AM) Body Mass Index [18.5-24.99 kg/m2] 53.51 kg/m2 *>HHI* (04/06/24 9:30 AM) Blood Pressure [90-138/55-84 mm Hg] 117/ 79mm Hg (04/06/24 9:30 AM) Blood pressure sites Arm, right (04/06/24 9:30 AM) Social History Social History Type Response Smoking Status Former smoker, quit more than 30 days ago; Other: quit June 2021; entered on: 05/18/22 Sex Female Sex Representation Female (finding) Note * Reyna Martinez MA: PERFORM Event Display: Patient Education/Instruction Authored Date: [id number] Ambulatory Adult Visit Summary [facility] [address] [place] [address] Name: ELYSSA ALFREDO : 1955?? Visit: 04/06/2024 09:23?? Ambulatory Visit Instructions ?? Your Care Team Primary Care Provider Jose Martinez MD? This Visit Provider Brian Mchugh Your Diagnosis Productive cough Heart failure with improved ejection fraction (HFimpEF) Hypertension Atrial fibrillation Secondary hypercoagulable state Asthma-COPD overlap syndrome Vitals Signs Pulse Rate: 59 bpm Height: 154 cm Systolic Blood Pressure: 117 mm Hg Weight: 126.9 kg Diastolic Blood Pressure: 79 mm Hg Body Mass Index:??53.51 kg/m2??Critical Oxygen Saturation: 95 % Body surface area: 2.33 What to do next Scheduled Follow-Up Appointments Wednesday 7:45 AM EST ?? With: America Joseph NP Where: [facility] [address] [place] [address]- Status: Pending Wednesday 1:40 PM EST ?? With: Jose Martinez MD Where: [address] [address]- Status: Pending Future Orders XR Chest 2 Views Frontal and Lat, Routine, Reason for Exam: Cough, Patient Does Not Need Assistance, Once, *Est. 04/06/24 Basic Metabolic Panel - Routine, Once, 06/16/23 3:00:00 EDT every 1 months for 12 months, Single orRecurring Future Order, [facility], Blood?? B Type Natriuretic Peptide (NT ProBNP) - Routine, Once, 06/16/23 3:00:00 EDT every 1 months for 12 months, Single or Recurring Future Order, [facility], Blood?? Basic Metabolic Panel - Routine, Once, 09/29/23 3:00:00 EDT, Single or Recurring Future Order, [facility], Blood?? B Type Natriuretic Peptide (NT ProBNP) - Routine, Once, 09/29/23 3:00:00 EDT, Single or Recurring Future Order, [facility], Blood?? [...] the prescribing provider. What How Much When Why Instructions New Azithromycin (Zithromax Z-Crow 250 mg oral tablet) 1 pack/packet Oral Once Productive cough Asthma-COPD overlap syndrome Pickup at [facility]/pharmacy #[id number] Changed Atorvastatin (atorvastatin 80 mg oral tablet) 1 tab(s) Oral Daily at Bedtime Changed Metoprolol (Metoprolol Succinate ER 200 mg oral tablet, extended release) 1 tab(s) Oral Daily Changed Miscellaneous Rx (DAILY ERICA TABLET) 1 tab(s) Oral Daily Unchanged Albuterol (Albuterol (Eqv-ProAir HFA)) 2 puff(s) Inhalation Every 6 hours Unchanged Amlodipine (amLODIPine 10 mg oral tablet) 1 tab(s) Oral Daily Unchanged apixaban (Eliquis 5 mg oral tablet) 1 tab(s) Oral Twice a day Unchanged Aripiprazole (ARIPiprazole 5 mg oral tablet) 1 tab(s) Oral Daily Unchanged Citalopram (citalopram 40 mg oral tablet) 1 tab(s) Oral Daily Unchanged Furosemide (furosemide 20 mg oral tablet) 1 tab(s) Oral Daily Unchanged Lorazepam (Ativan 0.5 mg oral tablet) 1 tab(s) Oral Daily at Bedtime as needed for as needed for anxiety Unchanged Lorazepam (LORazepam 0.5 mg oral tablet) 30 each, 0 Refill(s), TAKE 1 TABLET BY MOUTH EVERY DAY NEEDED FOR ANXIETY AT BEDTIME ?? Unchanged Multivitamin (Daily Erica oral tablet) See instructions TAKE 1 TABLET BY MOUTH EVERY DAY ?? Unchanged Ropinirole (rOPINIRole 0.25 mg oral tablet) 3 tab(s) Oral Daily at Bedtime Unchanged sacubitril-valsartan (Entresto 97 mg-103 mg oral tablet) 1 tab(s) Oral Twice a day Unchanged Spironolactone (spironolactone 25 mg oral tablet) 1 tab(s) Oral Daily Unchanged umeclidinium-vilanterol (Anoro Ellipta 62.5 mcg-25 mcg/ inh inhalation powder) 1 puff(s) Inhalation Daily Pharmacy Information [facility]/pharmacy #[id number]: [address] [place] [phone] ?? 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 Stop Taking Ferrous Sulfate (ferrous sulfate 325 mg oral enteric coated tablet) 1 tab(s) Oral Twice a day Medications and Immunizations Administered Medications Given During [...] are strongly encouraged to quit. Please call [employer] at [phone] or [phone] ([phone]) or log in to [email or web address] for referrals to smoking cessation programs. ?? The National Suicide Prevention Hotline is available 12/10 if you or someone you know needs to find a reason to keep living. By calling 2-488-522-Revolucionadolabs (1347) you'll be connected to a skilled, trained counselor at a crisis center in your area. [facility] [employer] Portal You can view and manage your care through the patient portal or by using a health care chantelle of your choosing. [employer] is a website that allows you to securely view your medical information including your hospital discharge summary, office visit summaries, medications and follow-up visits. You can also request appointments, renew medications, and request access to your medical information using a health care chantelle of your choosing, or just ask a question. You can enroll at [email or web address] or register during your next office visit. [facility], in keeping with [facility] guidance, no longer requires face masks for [...] find a [facility] provider by calling [facility] at [phone]. Patient Care team information Care Team Personnel Name: Radha Villela Position: [facility] RN Supv Member Role: Primary Care Nurse Name: Nichole Coates RN Position: [facility] SN RN Member Role: Primary Care Nurse Name: Ksenia eHrzog RN Position: [facility] RN Member Role: Primary Care Nurse Name: Leatha Walsh RN Position: [facility] SN RN Member Role: Primary Care Nurse Name: Milagro Sims RN Position: [facility] ANGEL Nurse Member Role: Primary Care Nurse Name: Anne Gonzalez RN [facility] - Primary Care Member Role: PCP Address: [address] [place] [address]- Telecom: Name: Aleks Merchant RN Position: [facility] RN Member Role: Primary Care Nurse Name: Genet Bowman RN Position: [facility] RN Member Role: Primary Care Nurse Name: Ilana Burns RN Position: [facility] RN Member Role: Primary Care Nurse Care Team Related Persons Name: TUTU ROWLAND Name: JANET CONNOR Insurance Providers Guarantor name: ELYSSA ALFREDO [employer] [facility] Information #: 1 Payer: NA Member Number: [id number] Policy Number: NA Group Number: NA Health Plan Information #: 2 Payer: NA Member Number: [id number] Policy Number: NA Group Number: NA
--- OUTSIDE RECORDS SUMMARY | 2024-04-24 22:04 | XMS_ITS | Continuity of Care Document ---
Author Organization [facility] Address [address] [place] [address] [facility] Name Relationship Address Phone ELYSSA ALFREDO Personal Relationship Unknown Diane vailable ELYSSA ALFREDO Personal Relationship Unknown Diane vailable CONNOR, JANET sibling Unknown Unavailable KASHIF, TUTU sibling Unknown Unavailabl e Care Team Providers Care Tnt Powder Worker Name Role Phone Jose Martinez MD Primary Care Physician Encounter [facility] [place] Date(s): 02/29/24 - 03/30/24 [facility] [address] [place] [id number] Attending Physician: Annetta Steinberg Admitting Physician: AdmAnnetta flanagan Referring Physician: Admtr, ArBran Encounter Type: Triage Allergies, Adverse Reactions, Alerts Substance Criticality Severity Reaction Reaction Severity Status Nembutal Hyperventalating Act eliseo Cordran Tape BLISTERS Active Chantix Active traZODone daytime gogginess Ac tive Immunizations Given and Recorded Vaccine Date Status [...] H1N1, inactive(oldterm) 8 01/21/09 Given 1Result Comment: [facility]:[id number] 2Result Comment: [facility]:[id number] 3Result Comment: [01/19/2018] [id number] 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 manufacturers. no contraindications per patient 5Admin Note: [employer] manufacturers. no contraindications per patient 6Admin Note: [facility] 7Admin Note: [employer],[place] 8Admin Note: Novaritis Medications Albuterol (Eqv-ProAir HFA) 2 puffs, Inhalation, Every 6 hours, 0 Refills, Maintenance, 10/13/21 1:54:00 PM EDT, Partial fill upon patient request if the prescription is for a schedule II opioid drug. Start Date: 10/13/21 Status: Ordered Repeat number: 1 amLODIPine 10 mg oral tablet 1 tablet, By Mouth, Daily, # 90 tablet, 1 Refills, Maintenance, 03/14/24 9:09:00 AM EST, [facility], 154, cm, 10/18/23 14:36:00 EDT, Height Start [...] 9:09:00 AM EST, Route to Pharmacy Electronically, [facility]164, 154, cm, 10/18/23 14:36:00 EDT, Height Start Date: 03/14/24 Status: Ordered Quantity: 90.0 Unit: tablet Repeat number: 1 aspirin 81 mg oral delayed release tablet 81 mg, By Mouth, Daily, # 30 tablet, Refills 11, Tot. Refills 11, Maintenance, 06/12/21 9:27:00 AM EDT, Route to Pharmacy Electronically, [facility], Partial fill upon patient request ifthe [...] Refills, Maintenance, 11/16/23 8:58:00 AM EDT, Tablet, [facility]/pharmacy #[id number], Partial fill upon patient request ifthe prescription is for a schedule II opioid drug., 154, cm, 10/18/23 14:36:00 EDT, Height Start Date: 11/16/23 Status: Ordered Quantity: 30.0 Unit: tablet Repeat number: 6 atorvastatin 80 mg oral tablet 1 tablet, By Mouth, Daily at bedtime, # 90 tablet, 1 Refills, Maintenance, 03/16/24 8:14:00 AM EST,[facility] [address], 154, cm, 10/18/23 14:36:00 EDT, Height Start Date: 03/16/24 Status: Ordered Quantity: 90.0 Unit: tablet Repeat number: 1 atorvastatin 80 mg oral tablet 1 tablet, By Mouth, Daily at bedtime, # 90 tablet, 1 Refills, Maintenance, 12/14/23 3:13:00 PM EDT, [facility], 154, cm, 10/18/23 14:36:00 EDT, Height Start [...] 1 Refills, Maintenance, 11/16/23 8:57:00 AM EDT, [facility], 154, cm, 10/18/23 14:36:00 EDT, Height Start [...] EVERY DAY, # 90 tablet, 1 Refills, [facility], 90, TAKE 1 TABLET BY MOUTH EVERY [...] Refills, Maintenance, 06/25/23 9:17:00 AM EDT, Tablet, [facility]/pharmacy #2339, Partial fill upon patient request if the prescription is for a schedule II opioid drug., 154, cm, 06/25/23 9:05:00 EDT, Height Start Date: 06/25/23 Status: Ordered Quantity: 180.0 Unit: tablet Repeat number: 12 Entresto 97 mg-103 mg oral tablet 1 tablet, By Mouth, 2 times a day, # 180 tablet, 3 Refills, Maintenance, 10/18/23 7:23:00 AM EDT, [facility], 90, TAKE 1 TABLET BY MOUTH TWICE A DAY, 154, cm, 10/05/23 13:41:00 EDT, Height Start Date: 10/18/23 Status: Ordered Quantity: 180.0 Unit: tablet Repeat number: 1 ferrous sulfate 325 mg oral enteric coated tablet 1, tablet, By Mouth, 2 times a day, # 180 tablet, Refills 1, Maintenance, 07/26/22 7:26:00 AM EDT, Route to Pharmacy Electronically, [facility], 157.48, cm, 05/18/22 9:48:00 EST, Height, 111, kg, 06/10/21 15:06:00 EDT, Dry Weight Start Date: 07/26/22 Status: Ordered Quantity: 180.0 Unit: tablet Repeat number: 1 furosemide 20 mg oral tablet 1, tablet, By Mouth, Daily, # 90 tablet, Refills 1, Maintenance, 03/10/24 7:30:00 AM EST, Route to Pharmacy Electronically, [facility], 154, cm, 10/18/23 14:36:00 EDT, Height Start [...] 1 Refills, Maintenance, 03/16/24 8:14:00 AM EST, [facility], 154, cm, 10/18/23 14:36:00 EDT, Height Start Date: 03/16/24 Status: Ordered Quantity: 90.0 Unit: tablet Repeat number: 1 Metoprolol Succinate ER 200 mg oral tablet, extended release 1 tablet, By Mouth, Daily, # 90 tablet, 1 Refills, Maintenance, 12/09/23 9:50:00 AM EDT, [facility]/pharmacy #2339, 154, cm, 10/18/23 14:36:00 EDT, Height Start Date: 12/09/23 Status: Ordered Quantity: 90.0 Unit: tablet Repeat number: 2 rOPINIRole 0.25 mg oral tablet 3 tablet = 0.75 mg, By Mouth, Daily at bedtime, # 270 tablet, 3 Refills, Maintenance, 07/20/23 10:38:00 AM EDT, [facility], 154, cm, 06/25/23 9:05:00 EDT, Height Start Date: 07/20/23 Status: Ordered Quantity: 270.0 Unit: tablet Repeat number: 4 spironolactone 25 mg oral tablet 1, tablet, By Mouth, Daily, # 90 tablet, Refills 1, Maintenance, 03/10/24 7:30:00 AM EST, Route to Pharmacy Electronically, [facility], 154, cm, 10/18/23 14:36:00 EDT, Height Start Date: 03/10/24 Status: Ordered Quantity: 90.0 Unit: tablet Repeat number: 1 Problem List Condition Confirmation Course Effective Dates Status H ealth Status Informant Asthma Confirmed Active Asthma-COPD overlap syndrome Confirmed Active Atrial fibrillation Confirmed Active Back pain 1 Confirmed Active Cardiomyopathy Confirmed Active Major depression, chronic Confirmed Active CHF (congestive heart failure) (UVDV32-45% on echo 2019) Confirmed Active Coronary artery [...] Nichole Coates RN Position: [facility] SN RN Member Role: Primary Care Nurse Name: Ksenia Herzog RN Position: [facility] RN Member Role: Primary Care Nurse Name: Leatha Walsh RN Position: [facility] SN RN Member Role: Primary Care Nurse Name: Milagro Sims RN Position: [facility] AMB Nurse Member Role: Primary Care Nurse Name: Anne Gonzalez RN Position: [facility] RN Member Role: Primary Care Nurse Name: Mckayla Wilcox RN Position: [facility] SN RN Member Role: Primary Care Nurse Name: Simin Chen RN Position: [facility] RN Member Role: Primary Care Nurse Name: Jose Martinez MD Position: [facility] Physician - Primary Care Member Role: PCP Address: [address] [place] [address]- Telecom: Name: Aleks Merchant RN Position: [facility] RN Member Role: Primary Care Nurse Name: Genet Bowman RN Position: [facility] SN RN Member Role: Primary Care Nurse Name: Ilana Burns RN Position: [facility] RN Member Role: Primary Care Nurse Care Team Related Persons Name: TUTU ROWLAND Name: JANET CONNOR Insurance Providers Guarantor name: ELYSSA ALFREDO [employer] [facility] Information #: 1 Payer: NA Member Number: NA Policy Number: NA Group Number: NA
--- OUTSIDE RECORDS SUMMARY | 2024-04-24 22:04 | XMS_ITS | Continuity of Care Document ---
Author Organization [facility] Address [address] [place] [address]- Care Team Providers Care Acid Regenerator Name Role Phone Michelle HICKEY, Jose Primary Care Physician [phone] Encounter [facility] [place] Date(s): 03/14/24 - 04/13/24 [facility] [place], [place] [address] Encounter Type: Triage Allergies, Adverse Reactions, Alerts [...] H1N1, inactive(oldterm) 8 01/21/09 Given 1Result Comment: [facility]:[id number] 2Result Comment: [facility]:[id number] 3Result Comment: [01/19/2018] [id number] 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 manufacturers. no contraindications per patient 5Admin Note: [employer] manufacturers. no contraindications per patient 6Admin Note: [employer] [facility] 7Admin Note: [employer],[place] 8Admin Note: Novaritis Problem List Condition Confirmation Course Effective Dates Status H ealth Status Informant Asthma Confirmed Active Asthma-COPD overlap syndrome Confirmed Active Atrial fibrillation Confirmed Active Back pain 1 Confirmed Active Cardiomyopathy Confirmed Active Major depression, chronic Confirmed Active CHF (congestive heart failure) (GKHW91-12% on echo 2019) Confirmed Active Coronary artery [...] Care Team Personnel Name: Radha Villela Position: [facility] RN Supv Member Role: Primary Care Nurse Name: Nichole Coates RN Position: [facility] SN RN Member Role: Primary Care Nurse Name: Ksenia Herzog RN Position: [facility] RN Member Role: Primary Care Nurse Name: Leatha Walsh RN Position: [facility] SN RN Member Role: Primary Care Nurse Name: Milagro Sims RN Position: [facility] AMB Nurse Member Role: Primary Care Nurse Name: Anne Gonzalez RN Position: [facility] RN Member Role: Primary Care Nurse Name: Mckayla Wilcox RN Position: [facility] SN RN Member Role: Primary Care Nurse Name: Simin Chen RN Position: [facility] RN Member Role: Primary Care Nurse Name: Jose Martinez MD Position: [facility] Physician - Primary Care Member Role: PCP Address: [address] [place] [id number] Telecom: Name: Aleks Merchant RN Position: [facility] RN Member Role: Primary Care Nurse Name: Genet Bowman RN Position: [facility] SN RN Member Role: Primary Care Nurse Name: Ilana Burns RN Position: [facility] RN Member Role: Primary Care Nurse Care Team Related Persons Name: TUTU ROWLAND Name: JANET CONNOR Insurance Providers Guarantor name: ELYSSA SAYDA [facility] Information #: 1 Payer: ANALIA Member Number: NA Policy Number: NA Group Number: NA
== END ==
LOC: HO.SL 20:30
PROVIDERS: PCP Internal Medicine; Visit Provider Internal Medicine Pulmonary Disease
DX: G47.33 Obstructive sleep apnea (adult) (pediatric) (principal)

== ENCOUNTER 2024-08-02 14:23 | Outpatient (AMB) | payer OTHER, SELFPAY ==
--- OUTSIDE RECORDS SUMMARY | 2024-08-02 14:28 | XMS_ITS | Continuity of Care Document ---
Author Organization [facility] Address [address] [place] [id number]- Care Team Providers Care Fishing Rod Trimmer Name Role Phone Jose Martinez MD Primary Care Physician [place] [facility] [place]/29/24 [facility] [address] [place] [id number] Encounter Type: Triage Allergies, Adverse Reactions, Alerts [...] inactive(oldterm) 8 01/21/09 Given 1Result Comment: [facility]:[id number] 2Result Comment: [facility]:[id number] 3Result Comment: [01/19/2018] [id number] 4Admin Note: [employer]. no contraindications per patient 5Admin Note: [employer]. no contraindications per patient 6Admin Note: [employer] [facility] 7Admin Note: [employer],[place] 8Admin Note: Novaritis Medications Albuterol (Eqv-ProAir HFA) 2 puffs, Inhalation, Every 6 hours, 0 Refills, Maintenance, 10/13/21 1:54:00 PM EDT, Partial fill upon patient request if the prescription is for a schedule II opioid drug. Start Date: 10/13/21 Status: Ordered Repeat number: 1 amLODIPine 10 mg oral tablet 1 tablet, By Mouth, Daily, # 90 tablet, 1 Refills, Maintenance, 03/14/24 9:09:00 AM EST, [facility], 154, cm, 10/18/23 14:36:00 EDT, Height Start [...] 9:09:00 AM EST, Route to Pharmacy Electronically, [facility], 154, cm, 10/18/23 14:36:00 EDT, Height Start Date: 03/14/24 Status: Ordered Quantity: 90.0 Unit: tablet Repeat number: 1 Ativan 0.5 mg oral tablet 1 tablet = 0.5 mg, By Mouth, Daily at bedtime, PRN as needed for anxiety, # 30 tablet, 5 Refills, Maintenance, 05/22/24 9:14:00 AM EST, Tablet, [facility]/pharmacy #[id number], Partial fill upon patient request if the prescription is for a schedule II opioid drug., 154, cm, 04/18/24 8:01:00 EST, Height Start Date: 05/22/24 Status: Ordered Quantity: 30.0 Unit: tablet Repeat number: 6 atorvastatin 80 mg oral tablet 1 tablet, By Mouth, Daily at bedtime, # 90 tablet, 1 Refills, Maintenance, 03/16/24 8:14:00 AM EST,[facility], 154, cm, 10/18/23 14:36:00 EDT, Height Start Date: 03/16/24 Status: Ordered Quantity: 90.0 Unit: tablet Repeat number: 1 citalopram 40 mg oral tablet See Instructions, TAKE 1 TABLET BY MOUTH EVERY DAY, # 90 tablet, 1 Refills, Maintenance, 06/08/24 1:07:00 PM EDT, [facility], 154, cm, 05/23/24 13:42:00 EST, Height Start Date: 06/08/24 Status: Ordered Quantity: 90.0 Unit: tablet Repeat number: 1 citalopram 40 mg oral tablet 1 tablet, By Mouth, Daily, # 90 tablet, 1 Refills, Maintenance, 11/16/23 8:57:00 AM EDT, [facility], 154, cm, 10/18/23 14:36:00 EDT, Height Start Date: 11/16/23 Status: Ordered Quantity: 90.0 Unit: tablet Repeat number: 1 Eliquis 5 mg oral tablet 1 tablet = 5 mg, By Mouth, 2 times a day, # 180 tablet, 11 Refills, Maintenance, 06/25/23 9:17:00 AM EDT, Tablet, [facility]/pharmacy #[id number], Partial fill upon patient request if the prescription is for a schedule II opioid drug., 154, cm, 06/25/23 9:05:00 EDT, Height Start Date: 06/25/23 Status: Ordered Quantity: 180.0 Unit: tablet Repeat number: 12 Entresto 97 mg-103 mg oral tablet 1 tablet, By Mouth, 2 times a day, # 180 tablet, 3 Refills, Maintenance, 10/18/23 7:23:00 AM EDT, [facility], 90, TAKE 1 TABLET BY MOUTH TWICE A DAY, 154, cm, 10/05/23 13:41:00 EDT, Height Start Date: 10/18/23 Status: Ordered Quantity: 180.0 Unit: tablet Repeat number: 1 furosemide 20 mg oral tablet 1, tablet, By Mouth, Daily, # 90 tablet, Refills 1, Maintenance, 03/10/24 7:30:00 AM EST, Route to Pharmacy Electronically, [facility], 154, cm, 10/18/23 14:36:00 EDT, Height Start Date: 03/10/24 Status: Ordered Quantity: 90.0 Unit: tablet Repeat number: 1 Metoprolol Succinate ER 200 mg oral tablet, extended release 1 tablet, By Mouth, Daily, # 90 tablet, 1 Refills, Maintenance, 06/29/24 10:14:00 AM EDT, [facility]/pharmacy #[id number], 154, cm, 05/23/24 13:42:00 EST, Height Start Date: 06/29/24 Status: Ordered Quantity: 90.0 Unit: tablet Repeat number: 2 rOPINIRole 0.25 mg oral tablet 3 tablet, By Mouth, Daily at bedtime, # 270 tablet, 1 Refills, Maintenance, 06/22/24 1:06:00 PM EDT, [facility], 154, cm, 05/23/24 13:42:00 EST, Height Start Date: 06/22/24 Status: Ordered Quantity: 270.0 Unit: tablet Repeat number: 1 spironolactone 25 mg oral tablet 1, tablet, By Mouth, Daily, # 90 tablet, Refills 1, Maintenance, 03/10/24 7:30:00 AM EST, Route to Pharmacy Electronically, [facility], 154, cm, 10/18/23 14:36:00 EDT, Height Start Date: 03/10/24 Status: Ordered Quantity: 90.0 Unit: tablet Repeat number: 1 Zepbound 2.5 mg/0.5 mL subcutaneous solution = 2.5 mg, Subcutaneous Injection, Every week, rotate injection sites; dispense as pens, # 4 each, 1Refills, Maintenance, 05/23/24 2:02:00 PM EST, Solution, [facility]/pharmacy #[id number], Partial fill upon patient request if the prescription is for a schedule II opioid drug., 154, cm, 05/23/24 13:42:00 EST, Height Start Date: 05/23/24 Status: Ordered Quantity: 4.0 Unit: each Repeat number: 2 Problem List Condition Confirmation Course Effective Dates Status H ealth Status Informant Asthma Confirmed Active Asthma-COPD overlap syndrome Confirmed Active Atrial fibrillation Confirmed Active Back pain 1 Confirmed Active Cardiomyopathy Confirmed Active Major depression, chronic Confirmed Active CHF (congestive heart failure) ([id number]% on echo 2019) Confirmed Active Coronary artery [...] Care Team Personnel Name: Radha Villela Position: [facility] Supv Member Role: Primary Care Nurse Name: Nichole Coates RN Position: [facility] RN Member Role: Primary Care Nurse Name: Ksenia Herzog RN Position: S RN Member Role: Primary Care Nurse Name: Leatha Walsh RN Position: [facility] SN RN Member Role: Primary Care Nurse Name: Milagro Sims RN Position: [facility] AMB Nurse Member Role: Primary Care Nurse Name: Anne Gonzalez RN Position: [facility] RN Member Role: Primary Care Nurse Name: Mckayla Wilcox RN Position: [facility] SN RN Member Role: Primary Care Nurse Name: Simin Chen RN Position: [facility] RN Member Role: Primary Care Nurse Name: Jose Martinez MD Position: [facility] Physician - Primary Care Member Role: PCP Address: [address] [place] [id number] Telecom: Name: Aleks Merchant RN Position: [facility] RN Member Role: Primary Care Nurse Name: Genet Bowman RN Position: [facility] RN Member Role: Primary Care Nurse Name: Ilana Burns RN Position: [facility] RN Member Role: Primary Care Nurse Care Team Related Persons Name: TUTU ROWLAND Name: JANET CONNOR Insurance Providers Guarantor name: ELYSSA [facility] Information #: 1 Payer: NA Member Number: NA Policy Number: NA Group Number: NA
[2024-08-02 14:30] VITALS: BP 156/90; PULSE 79; O2SAT 96; BMI 56.9
--- NOTE | 2024-08-02 14:30 | A.OFFVIS_ITS ---
Vital Signs 08/02/24 14:30 Height 5 ft 2 in Weight 311 lb BMI 56.9 BP 156/90 H Blood Pressure Location Lt brachial Position Sitting Pulse 79 Pulse Source Pulse Oximeter Pulse Oximetry (%) 96 Oxygen Delivery Method Room Air Intake Visit Reasons: Obstructive sleep apnea Allergies trazodone Adverse Reaction (Severe, Verified 08/02/24 14:37) SOB hospiital tape Allergy (Unknown, Uncoded 08/31/23 12:28) Rash nebutol Allergy (Uncoded 08/31/23 12:28) Difficulty Breathing HPI HPI Obstructive sleep apnea: Details: 68-year-old lady, former 40+ pack-year smoker, quit 3 years prior with underlying obesity followed by weight management, also asthma on Dulera/albuterol MDI, referred for evaluation of underlying PRINCESS. After the last office visit patient has completed her sleep study that showed underlying mild obstructive sleep apnea. Though at this time she is not interested in CPAP therapy. She also has completed her pulmonary function testing shows moderate COPD. She denies acute exacerbations, after the last office visit she was switched to Anoro and reports improved symptom control. She completed her lung cancer screening CT chest. [facility] Medical History (Updated 02/22/24 @ 15:47 by Chandra Agustin MD) Elevated cholesterol History of MRSA infection Back pain COPD (chronic obstructive pulmonary disease) GERD (gastroesophageal reflux disease) Depression Anxiety Restless leg syndrome DJD (degenerative joint disease) CHF (congestive heart failure) Atrial fibrillation Myocardial infarct CAD (coronary artery disease) Hypertension Sleep apnea Morbid obesity Surgical History (Updated 08/31/23 @ 12:20 by Niya Ruelas CMA) History of removal of laparoscopic gastric banding device History of hip surgery Hx of cholecystectomy Hx of laparoscopic gastric banding Family History Maternal Grandfather Colon cancer Social History Household Members: Family Housing: House Are you a primary career center advisor to a significant other at home: No Do you presently have visiting nurse or other home services: No Patient Tobacco Use Status: Former Tobacco user Tobacco use type: Cigarette service: No Review of Systems Const Denies daytime sleepiness, Denies excessive sweating, Denies fatigue, Denies fever(s), Denies lethargy, Denies malaise, Denies night sweats, Denies snoring and Denies weight loss Eyes Denies blurry vision and Denies itchy eyes ENT Denies nasal congestion, Denies post nasal drip, Denies sinus pain, Denies sinus pressure and Denies other ( Thrush) Card Denies chest pain, Denies pedal edema, Denies dyspnea, Reports dyspnea on exertion, Denies orthopnea and Denies paroxysmal nocturnal dyspnea Resp Denies cough, Denies hemoptysis, Denies excessive phlegm production, Denies dyspnea, Reports dyspnea on exertion, Denies snoring and Denies wheezing GI Denies abdominal pain and Denies heartburn Musc Denies myalgias, Denies arthralgias and Denies joint swelling Skin/Breast Denies rash Neuro Denies memory loss and Denies seizure-like activity Psych Denies abnormal sleep pattern, Denies anxiety and Denies memory loss Endo Denies excessive sweating, Denies fatigue and Denies heat intolerance Armen/Lymph Denies easy bruising Aller/Immun Denies itchy eyes, Denies seasonal rhinorrhea and Denies wheezing Physical Exam Vital Signs: Last Vital Signs Pulse 79 08/02/24 14:30 BP 156/90 H 08/02/24 14:30 Pulse Ox 96 08/02/24 14:30 Oxygen Delivery Method Room Air 08/02/24 14:30 BMI result Body Mass Index 56.9 Const General: no acute distress and alert Nutritional Appearance: obese Orientation/consciousness: Other orientation findings ( oriented) HEENT Head: Yes atraumatic Eyes General: appearance normal, both eyes and all related structures Sclerae: sclerae normal EOM: EOMs intact bilaterally Neck Neck: Yes supple Lymphatic: no lymphadenopathy noted Resp Effort & Inspection: normal respiratory effort and no use of accessory muscles Auscultation: clear to auscultation bilaterally Cardio Rate: regular rate Rhythm: regular rhythm Heart sounds: no gallops, no murmurs and no rubs Skin General skin exam: other ( warm) Extrem General: No clubbing, No cyanosis and No edema Assessment & Plan Assessment & Plan (1) Asthma-COPD overlap syndrome: Code(s): J44.89 - Other specified chronic obstructive pulmonary disease Category: Medical Plan: Significantly improved symptom control on Anoro. Continue current regimen of An rabia and albuterol MDI. (2) PRINCESS (obstructive sleep apnea): Code(s): G47.33 - Obstructive sleep apnea (adult) (pediatric) Category: Medical Plan: Results of sleep study reviewed, underlying mild obstructive sleep apnea with AHI of 5.8. At this time patient is not interested in CPAP therapy. (3) Personal history of nicotine dependence: Code(s): Z87.891 - Personal history of nicotine dependence Category: Medical Plan: Results of lung cancer screening CT chest reviewed 6 mm and under bilateral p ulmonary nodules. Will repeat CT chest in August of 2024, ordered. Orders: Orders CT lung screen follow up 09/02/24 Z87.891 - Personal history of nicotine dependence Coding Level of Care Code Est Pt Level 4 (60636) Complex EM visit Add On G2211 Diagnoses Asthma-COPD overlap syndrome J44.89 PRINCESS (obstructive sleep apnea) G47.33 Personal history of nicotine dependence Z87.891
== END 2024-08-02 14:48 | disposition home or self-care (01) ==
LOC: HO.HPS 14:24
PROVIDERS: PCP Internal Medicine; Visit Provider Internal Medicine Pulmonary Disease
DX: J44.89 Other specified chronic obstructive pulmonary disease (principal); G47.33 Obstructive sleep apnea (adult) (pediatric); Z87.891 Personal history of nicotine dependence
CPT/HCPCS: 99214; G2211

== ENCOUNTER → 2024-08-02 14:23 | Outpatient (BNVA) | payer OTHER, SELFPAY | PROVIDERS: PCP Internal Medicine; Visit Provider Internal Medicine Pulmonary Disease | DX: J44.89 Other specified chronic obstructive pulmonary disease (principal); G47.33 Obstructive sleep apnea (adult) (pediatric); Z87.891 Personal history of nicotine dependence | CPT/HCPCS: 99212 ==

== ENCOUNTER 2024-10-19 15:59 | Outpatient (REF) | payer OTHER, SELFPAY ==
--- NOTE | ~2024-10-19 | CT_ITS ---
CLINICAL HISTORY: Z87.891 - Personal history of nicotine dependence CT lung cancer screening (LDCT) Comparison: None provided Technique: Axial CT images of the chest using low-dose technique. Referring provider counseled the patient on shared decision-making for LDCT screening. Additional counseling was provided on smoking cessation. Effective radiation dose total: DLP 86.1 mGycm, CTDIvol 2.7 mGy. Findings: Lung: Mild emphysema. Multiple pulmonary nodules: 8 mm subpleural nodule of the right lower lobe series 4, image 80; 6.5 mm nodule of the right upper lobe image 75; 3 mm nodule of the left lower lobe image 101. Coronary artery calcifications: Moderate Limited upper abdomen: Unremarkable Other: None Impression: LungRADS 3 - Probably benign: Recommend low dose screening Chest CT in 6 months. ##L3## Category 1: Normal; continue annual screening Category 2: Benign appearance or behavior, continue annual screening Category 3: Probably benign, [address] recommended Category 4A: Suspicious, [address] recommended; may consider PET/CT Category 4B: Suspicious, Additional diagnostics and/or tissue sampling recommended Category 4X: Suspicious, Additional diagnostics and/or tissue sampling recommended Category 0: Recalls (incomplete screen due to Incomplete coverage, Noise, Respiratory motion, Expiration, Obscured by acute abnormality) This document has been electronically signed by: Talita Barrios MD on 10/20/2024 14:43:22
== END 2024-10-19 16:00 | disposition home or self-care (01) ==
LOC: HO.CT 15:59
PROVIDERS: PCP Internal Medicine; Visit Provider Internal Medicine Pulmonary Disease
DX: Z87.891 Personal history of nicotine dependence (principal)
CPT/HCPCS: 71250

== ENCOUNTER → 2024-10-19 16:00 | Outpatient (BNV) | payer OTHER, SELFPAY | PROVIDERS: PCP Internal Medicine; Visit Provider Nuclear Medicine | DX: Z12.2 Encounter for screening for malignant neoplasm of respiratory organs (principal); Z87.891 Personal history of nicotine dependence | CPT/HCPCS: 71250 ==

== ENCOUNTER 2025-02-07 10:07 | Outpatient (AMB) | payer OTHER, SELFPAY ==
--- NOTE | 2025-02-07 10:08 | A.OFFVIS_ITS ---
Vital Signs 02/07/25 10:09 Height 5 ft 2 in Weight 317 lb BMI 58.0 BP 142/82 H Blood Pressure Location Rt brachial Position Sitting Pulse 74 Pulse Source Pulse Oximeter Pulse Oximetry (%) 97 Oxygen Delivery Method Room Air Intake Visit Reasons: Obstructive sleep apnea Allergies trazodone Adverse Reaction (Severe, Verified 02/07/25 10:13) SOB hospiital tape Allergy (Unknown, Uncoded 08/31/23 12:28) Rash nebutol Allergy (Uncoded 08/31/23 12:28) Difficulty Breathing HPI HPI Obstructive sleep apnea: Details: 69-year-old lady, former 40+ pack-year smoker, quit 2021, now followed for moderate COPD and mild PRINCESS. At this time patient is not interested in CPAP therapy. She continues on Anoro and albuterol MDI with good control of her underlying pulmonary symptoms. She denies recent exacerbations. [facility] Medical History (Updated 02/22/24 @ 15:47 by Chandra Agustin MD) Elevated cholesterol History of MRSA infection Back pain COPD (chronic obstructive pulmonary disease) GERD (gastroesophageal reflux disease) Depression Anxiety Restless leg syndrome DJD (degenerative joint disease) CHF (congestive heart failure) Atrial fibrillation Myocardial infarct CAD (coronary artery disease) Hypertension Sleep apnea Morbid obesity Surgical History (Updated 08/31/23 @ 12:20 by Niya Ruelas CMA) History of removal of laparoscopic gastric banding device History of hip surgery Hx of cholecystectomy Hx of laparoscopic gastric banding Family History Maternal Grandfather Colon cancer Social History Household Members: Family Housing: House Are you a primary patient centered care specialist to a significant other at home: No Do you presently have visiting nurse or other home services: No Patient Tobacco Use Status: Former Tobacco user Tobacco use type: Cigarette service: No Review of Systems Const Denies daytime sleepiness, Denies excessive sweating, Denies fatigue, Denies fever(s), Denies lethargy, Denies malaise, Denies night sweats, Denies snoring and Denies weight loss Eyes Denies blurry vision and Denies itchy eyes ENT Denies nasal congestion, Denies post nasal drip, Denies sinus pain, Denies sinus pressure and Denies other ( Thrush) Card Denies chest pain, Denies pedal edema, Denies dyspnea, Denies orthopnea and Denies paroxysmal nocturnal dyspnea Resp Denies cough, Denies hemoptysis, Denies excessive phlegm production, Denies dyspnea, Denies snoring and Denies wheezing GI Denies abdominal pain and Denies heartburn Musc Denies myalgias, Denies arthralgias and Denies joint swelling Skin/Breast Denies rash Neuro Denies memory loss and Denies seizure-like activity Psych Denies abnormal sleep pattern, Denies anxiety and Denies memory loss Endo Denies excessive sweating, Denies fatigue and Denies heat intolerance Armen/Lymph Denies easy bruising Aller/Immun Denies itchy eyes, Denies seasonal rhinorrhea and Denies wheezing Physical Exam Vital Signs: Last Vital Signs Pulse 74 02/07/25 10:09 BP 142/82 H 02/07/25 10:09 Pulse Ox 97 02/07/25 10:09 Oxygen Delivery Method Room Air 02/07/25 10:09 BMI result Body Mass Index 58.0 Const General: no acute distress and alert Nutritional Appearance: obese Orientation/consciousness: Other orientation findings ( oriented) HEENT Head: Yes atraumatic Eyes General: appearance normal, both eyes and all related structures Sclerae: sclerae normal EOM: EOMs intact bilaterally Neck Neck: Yes supple Lymphatic: no lymphadenopathy noted Resp Effort & Inspection: normal respiratory effort and no use of accessory muscles Auscultation: clear to auscultation bilaterally Cardio Rate: regular rate Rhythm: regular rhythm Heart sounds: no gallops, no murmurs and no rubs Skin General skin exam: other ( warm) Extrem General: No clubbing, No cyanosis and No edema Assessment & Plan Assessment & Plan (1) Asthma-COPD overlap syndrome: Code(s): J44.89 - Other specified chronic obstructive pulmonary disease Category: Medical Plan: Well controlled on current regimen of Anoro and albuterol MDI. Continue current regimen. (2) Personal history of nicotine dependence: Code(s): Z87.891 - Personal history of nicotine dependence Category: Medical Plan: Results of lung cancer screening CT chest from October of 2024 reviewed, stable nodules as compared to prior. Continue yearly screening. Coding Level of Care Code Est Pt Level 4 (08547) Diagnoses Asthma-COPD overlap syndrome J44.89 Personal history of nicotine dependence Z87.899
[2025-02-07 10:09] VITALS: BP 142/82; PULSE 74; O2SAT 97; BMI 58.0
--- OUTSIDE RECORDS SUMMARY | 2025-02-07 19:07 | XMS_ITS | Data Portability ---
Author Organization [employer] [facility] [place] [employer] [facility] Address [address] [place] [address] Care Team Providers Care Bmet Name Role Phone [facility] Referring Provider [phone] Assessment Encounter Date Assessment Date Assessment LastModified [...] which patient reports is normal for her. [employer] on site reports wheezing at the apices of both lungs, which patient again reports is her baseline. POC COVID and flu negative. Will send COVID PCR but recommended ongoing OTC therapy and treatment. She is comfortable managing any pulmonary symptoms and believes that she is largely at her baseline currently. 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 [email or web address] Not available 03/22/2023 11:21:40 Plan of Treatment Reminders Order Date Submit Date Provider Last Modified By Organization Details Last Modified Time Details Appointments None recorded. Lab unlisted lab - covid-19 (novel coronaviru s) PCR 2023 024 SHUKRI [facility] (Centralized Electronic Ordering - All Locations), Patient Can Go To The Location Of Their Choice, [id number] 03:48:19 Referral None recorded. Procedures None recorded. [...] specimen source NASAL Not Available [facility] (Centralized Electronic Ordering - All Locations) Patient Can Go To The Location Of Their Choice, [id number] 03/24/2023 03:48:18 03/22/1903/24/2023 COVID -19 (NOVE L CORON AVIRU S) PCR covid-19 PCR result (neg) NEGAT NATHALIE 2018- novel Coron aviru s (2018nCoV ) not detec patricia by real- time RT-PC R. Note: If clini anabela suspi cion for COVID -19 is high, mindi nue to maint ain preca ution s and consi zelda repea t testi ng. Resul t repor patricia to the [facility]. To preve nt error s in [...] perfo rmed by real time PCR [facility] [employer] SARS- CoV-2 test. Not Available [facility] (Centralized Electronic Ordering - All Locations) Patient Can Go To The Location Of Their Choice, [id number] 03/24/2023 03:48:18 Result Notes None recorded. Medical Equipment None Reported. Allergies Allergen ID Allergen Name Allergen Category Reaction Reaction Severity Criticality Documentation Date Start Date Code Code System Note Provider Name and Address Organization Details Recorded Time 8497 trazodone medicatio n Not available Not available Not available 01/18/2024 36393 RxNorm Not Available [facility] - production 4 [...] Body temperature Body weight Heart rate Systolic And Diastolic Provider Name and Address Organization Details Last Updated DateTime 4 93 % 93 % 18 /min 98.9 [degF] 330070. 84 g 74 /min 142/82 mm[Hg] Not Available [facility] - production 10:56:32 Social History None recorded. Functional Status None recorded. Mental Status None recorded. Family History Nothing Reported. Medical History No medical history recorded. Gynecological HistoryNo gynecological history recorded. Obstetrics History GPAL:G 0 P 0 0 0 0 Past Encounters Encounter ID Performer Location Encounter Start Date Encounter Closed Date Diagnosis/Indication Diagnosis SNOMED-CT Code Diagnosis ICD10 Code Diagnosis IMO Codes Diagnosis Note [id number] Ksenia Palacio MD [facility] - [facility] [address] [place] [phone] 03/22/2023 10:56:30 03/23/2023 12:44:05 Upper respiratory infection 35374587 J06.9 Health Concerns Section Related Observation LastModified by Organization Detai ls LastModified Time None Recorded Concern Status LastModified by Organization Details LastModified Time None Recorded Advance Directives Directive None Recorded Payers Insurance Date Sequence Insurance Name Policy Number Policy Thompson Covered Member ID Thompson Member ID Guarantor Name 03/22/2023 1 [facility] - DOS ON OR AFTER 2022 - DUAL ELIGIBLE - [employer] OPTIONS AND ONE CARE (MEDICARE REPLACEMENT/ADV ANTAGE - HMO) Mey Lyons [id number] Mey Lyons Notes Date Note Type Note Provider Name and Address Organization Details Recorded Time 03/22/2023 text/html HPI: Ana is a 67 yo female with significant hx including acute on chronic CHF, Afib, Non ST elevation ND, HLD, MDD, OA, Anxiety, Opioid dependence, Morbid Obesity, Hypertensive retinopathy, cataracts, disc disorder, urinary leakage, and chronic pain. Allergies to cordan tape, Nembutal, Trazodone, and Chantix. MSR transferred call to this CRU RN and Mbr reports one week hx of UR s/s including cough, sinus and nasal congestion, body aches and headaches. Mbr denies SOB, chest pain or fever. Offered [facility] and she agreed. Confirmed phone number and address. Best number to reach Mbr is [phone]. Sent in INST[facility] referral however instructed Mbr [...] ................... ................... ................... ................... ................... ................... ........ [employer] Note From Marco A Deshpande: Encountered patient, [...] and Covid swabs performed. Both resulted negative; [facility] advised. Patient also inquisitive on the status [...] Extremities are free of trauma and edema. [facility] contacted: states patient is safe to take Tylenol at home for her symptoms, Covid PCR performed. PCR to go to [facility] laboratory. Red flags discussed with patient, patient advised to seek further medical attention including 911 should she began experiencing chest pain or shortness of breath. Patient verbalizes understanding and states she would like to remain at home at this time. [employer] Allergies: Trazodone ................... ................... ................... ................... ................... ................... ................... ........ Disposition: Annmarie Palacio MD [address] [facility],[address], [place], [address], [employer] 03/22/2023 11:21:44 OBGyn Episode No OBEpisode recorded.
== END 2025-02-07 10:19 | disposition home or self-care (01) ==
LOC: HO.HPS 10:07
PROVIDERS: PCP Internal Medicine; Visit Provider Internal Medicine Pulmonary Disease
DX: J44.89 Other specified chronic obstructive pulmonary disease (principal); Z87.891 Personal history of nicotine dependence
CPT/HCPCS: 99214

== ENCOUNTER → 2025-02-07 10:07 | Outpatient (BNVA) | payer OTHER, SELFPAY | PROVIDERS: PCP Internal Medicine; Visit Provider Internal Medicine Pulmonary Disease | DX: J44.89 Other specified chronic obstructive pulmonary disease (principal); G47.33 Obstructive sleep apnea (adult) (pediatric); Z87.891 Personal history of nicotine dependence | CPT/HCPCS: 99212 ==